=== PATIENT | female | born 1960 | race Caucasian/White ===

== ENCOUNTER 2019-11-08 01:18 | Day surgery (SDC) | payer BC, MEDICARE, SELFPAY ==
[2019-11-06 14:08] VITALS: BMI 30.2
--- NOTE | 2019-11-08 08:10 | PM.HPGS ---
History of Present Illness History of Present Illness Consent: Risks, benefits, and alternatives have been discussed and questions answered. Patient agrees to proceed with procedure. Chief complaint: Hx Colon Polyps Narrative: Brandy Casey is a 59 year old female here for screening colonoscopy. She has a history of polyps. She had 1 small polyp in 2009. Then in 2018 she had 30 polyps that required 3 procedures to remove them PMFSH Family History Family History Mother Family history of thyroid disease Family history of osteoporosis Depression Hypertension Family history of elevated blood lipids Family history of arthritis Family history of chronic obstructive pulmonary disease Family history of Alzheimer's disease Family history of atrial fibrillation Sibling Family history of thyroid disease Family history of hypercholesterolemia Hypertension Father Family history of hypercholesterolemia Hypertension Family history of cardiovascular disease Family history of coronary artery disease Social History Social History Smoking status: Never smoker Alcohol intake: current Meds Home Medications and Allergies Home Medications Medication Instructions Recorded Confirmed Type aspirin 81 mg tablet,delayed 81 mg PO DAILY 10/24/19 11/06/19 History release doxazosin 1 mg tablet 1 mg PO DAILY 10/24/19 11/06/19 History hydralazine 50 mg tablet 50 mg PO TID 10/24/19 11/06/19 History lansoprazole 30 mg capsule,delayed 30 mg PO BID cap 10/24/19 11/06/19 History release metoprolol succinate 50 mg 50 mg PO BID tablet 10/24/19 11/06/19 History tablet,extended release 24 hr mycophenolate sodium 360 mg 720 mg PO DAILY 10/24/19 11/06/19 History tablet,delayed release pravastatin 20 mg tablet 20 mg PO DAILY 10/24/19 11/06/19 History tacrolimus 1 mg capsule 1 mg PO Q12H 10/24/19 11/06/19 History Allergies Allergy/AdvReac Type Severity Reaction Status Date / Time amoxicillin Allergy Unknown Rash Verified 11/08/19 08:13 clavulanic acid Allergy Unknown RASH Verified 11/08/19 08:13 fentanyl Allergy Unknown very Verified 11/08/19 08:13 emotional crying levofloxacin Allergy Unknown Nausea And Verified 11/08/19 08:13 Vomiting Exam Resp: Auscultation: clear to auscultation bilaterally Cardio: Rate: regular rate Rhythm: regular rhythm GI: GI Palp: Yes Soft to palpation and No Tenderness to palpation present (GI) Assessment and Plan Assessment and plan (1) Personal history of colonic polyps: Code(s): Z86.010 - Personal history of colonic polyps Status: Acute Assessment and Plan: Colonoscopy with possible biopsy or polypectomy or cautery or injection of substances.
--- NOTE | 2019-11-08 08:40 | WPDANESEPPF ---
Anes - Initial Pre Proc Eval Procedure: Operation Date: 11/08/19 09:00 Proposed Procedures p Screening Colonoscopy - Tunde Dsouza MD Date/Time: 11/08/19 08:40 Surgeon: Tunde Dsouza MD Pre Op Diagnosis: Hx Colon Polyps Patient Data Age: 59 Gender: F Height: 5 ft 4 in Weight: 81.6 kg Allergies Allergy/AdvReac Type Severity Reaction Status Date / Time amoxicillin Allergy Unknown Rash Verified 11/08/19 08:13 clavulanic acid Allergy Unknown RASH Verified 11/08/19 08:13 fentanyl Allergy Unknown very Verified 11/08/19 08:13 emotional crying levofloxacin Allergy Unknown Nausea And Verified 11/08/19 08:13 Vomiting Home Medications Medication Instructions Recorded Confirmed Type aspirin 81 mg tablet,delayed 81 mg PO DAILY 10/24/19 11/08/19 History release doxazosin 1 mg tablet 1 mg PO DAILY 10/24/19 11/08/19 History hydralazine 50 mg tablet 50 mg PO TID 10/24/19 11/08/19 History lansoprazole 30 mg capsule,delayed 30 mg PO BID cap 10/24/19 11/08/19 History release metoprolol succinate 50 mg 50 mg PO BID tablet 10/24/19 11/08/19 History tablet,extended release 24 hr mycophenolate sodium 360 mg 720 mg PO DAILY 10/24/19 11/08/19 History tablet,delayed release pravastatin 20 mg tablet 20 mg PO DAILY 10/24/19 11/08/19 History tacrolimus 1 mg capsule 1 mg PO Q12H 10/24/19 11/08/19 History Patient hx anesthesia problems: none Family hx anesthesia problems: none [facility] Past Medical History Medical History (Updated 11/08/19 @ 08:40 by Ariel Dunn MD) HTN (hypertension) Hyperlipidemia Obesity Surgical History Surgical History Renal transplant recipient Renal transplant, status post Family History Family History Mother Family history of thyroid disease Family history of osteoporosis Depression Hypertension Family history of elevated blood lipids Family history of arthritis Family history of chronic obstructive pulmonary disease Family history of Alzheimer's disease Family history of atrial fibrillation Sibling Family history of thyroid disease Family history of hypercholesterolemia Hypertension Father Family history of hypercholesterolemia Hypertension Family history of cardiovascular disease Family history of coronary artery disease Social History Social History Smoking status: Never smoker Alcohol intake: current Anes - Eval Final PreProcedure Day of Procedure 11/08/19 08:40 Patient weight: obese Heart: regular rate and rhythm Lungs: clear to auscultation Airway: Mallampati scale class II Neurological: alert and oriented Last oral intake: >/= 8 hours ASA classification: IV Emergent: no Anesthetic plan: proceed Anesthesia type and monitoring: general GIVS and standard monitoring Informed Consent: The patient's anesthetic plan and its attendant risks and benefits were discussed with the patient/family/POA. Questions were solicited and answers provided to the satisfaction of the patient/family/POA.
[2019-11-08] MEDS: SODIUM CHLORIDE 0.9% IV 1,000 ML 999 ML IV CONT (08:46)
[2019-11-08 09:19] VITALS: BP 132/78; PULSE 67; RESP 16; O2SAT 98
[2019-11-08 09:29] VITALS: BP 134/82; PULSE 65; RESP 16; O2SAT 97
[2019-11-08 09:39] VITALS: BP 152/76; PULSE 60; RESP 16; O2SAT 97
--- NOTE | 2019-11-08 10:30 | SUR.PHASEII ---
Pt received 1500ml NS per Dr. Amador's orders. D/C fluids at 1030.
== END 2019-11-08 10:44 | disposition home or self-care (01) ==
PROVIDERS: PCP Family Medicine; Visit Provider Internal Medicine Gastroenterology
PROC: 0DJD8ZZ Inspection of Lower Intestinal Tract, Via Natural or Artificial Opening Endoscopic (ICD-10-PCS; CPT 45378; principal; 2019-11-08 09:00)
DX: Z12.11 Encounter for screening for malignant neoplasm of colon (principal); D12.0 Benign neoplasm of cecum; D12.3 Benign neoplasm of transverse colon; I10 Essential (primary) hypertension; E78.5 Hyperlipidemia, unspecified; Z79.82 Long term (current) use of aspirin; E66.9 Obesity, unspecified; Z68.30 Body mass index [BMI] 30.0-30.9, adult; Z94.0 Kidney transplant status
CPT/HCPCS: 45385; 45381; 88305; J2704; J7030

== ENCOUNTER 2019-11-25 08:08 | Outpatient (CLI) | payer BC, MEDICARE, SELFPAY | END 2019-11-25 08:09 | disposition home or self-care (01) | PROVIDERS: PCP Family Medicine | DX: R60.9 Edema, unspecified (principal); N39.0 Urinary tract infection, site not specified; Z94.0 Kidney transplant status; T86.10 Unspecified complication of kidney transplant | CPT/HCPCS: 87045; 87046; 87077; 87086; 87088; 87186; 87427 ==

== ENCOUNTER 2020-06-18 06:44 | Outpatient (CLI) | payer BC, MEDICARE, SELFPAY ==
[2020-06-18 07:47] LABS: Alanine Aminotransferase 38 U/L (4-35); Albumin Level 3.4 g/dL (3.5-5.1); Alkaline Phosphatase 115 U/L (38-126); Anion Gap 6 mmol/L (8-16); Aspartate Amino Transferase 34 U/L (14-36); Bilirubin,Total 0.3 mg/dL (0.2-1.3); Blood Urea Nitrogen 40 mg/dL (7-17); Calcium 9.7 mg/dL (8.4-10.2); Carbon Dioxide 22 mmol/L (22-30); Chloride 107 mmol/L (98-107); Estimated Glomerular Filt Rate 31; Glucose 150 mg/dL (65-105); Potassium 4.9 mmol/L (3.4-5.0); Sodium 135 mmol/L (137-145)
== END 2020-06-18 06:45 | disposition home or self-care (01) ==
LOC: ANHLAB 06:46
PROVIDERS: PCP Family Medicine
DX: T86.10 Unspecified complication of kidney transplant (principal); Z94.0 Kidney transplant status
CPT/HCPCS: 36415; 36592; 80053

== ENCOUNTER 2020-09-09 12:36 | Emergency (ER) | payer BC, MEDICARE, SELFPAY ==
[2020-09-09] VITALS (36 sets, daily range): BP systolic 92–154; BP diastolic 46–95; PULSE 70–87; RESP 12–24; TEMP 36.8; O2SAT 91–100
--- NOTE | ~2020-09-09 | XR_ITS ---
XR chest 1V portable 09/09/2020 13:59 Indication: Shortness of breath Procedure: AP portable chest Comparison: 06/06/2019 Findings: Portacatheter tip in the SVC. There is linear subsegmental atelectasis/scarring left mid missy ng zone. No focal pneumonia, pleural effusion, edema or pneumothorax. Impression: 1: Linear subsegmental atelectasis/scarring left midlung zone. Reviewed, dictated and finalized at location A. ATE DUTY NURSE Impression: 1: Linear subsegmental atelectasis/scarring left midlung zone.
--- NOTE | 2020-09-09 13:35 | ED.FEVER ---
HPI - Fever General Chief Complaint: Fever Stated Complaint: fever/transplant kidney 2 yrs ago Time Seen by Provider: 09/09/20 13:27 Source: patient, RN notes reviewed and old records reviewed Mode of arrival: ambulatory Limitations: no limitations History of Present Illness HPI Narrative: 60-year-old female presents to emergency department for fever for the past 2 days. Patient states she took her temperature around 10 AM this morning which showed it was over 101 degrees. She states she has been feeling fatigued recently. Never had this in the past before. Has taken Tylenol for her symptoms. She was tested yesterday for COVID-19, however the test results take about 4 to 5 days. No chest pain or shortness of breath. No abdominal pain. No nausea or vomiting. Related Data Home Medications Medication Instructions Recorded Confirmed aspirin 81 mg tablet,delayed 81 mg PO DAILY 10/24/19 08/31/20 release mycophenolate sodium 360 mg 720 mg PO DAILY 10/24/19 08/31/20 tablet,delayed release melatonin 10 mg capsule 10 mg PO ONCE cap 08/31/20 08/31/20 Allergies Allergy/AdvReac Type Severity Reaction Status Date / Time amoxicillin Allergy Unknown Rash Verified 08/31/20 10:44 clavulanic acid Allergy Unknown RASH Verified 08/31/20 10:44 fentanyl Allergy Unknown very Verified 08/31/20 10:44 emotional crying levofloxacin Allergy Unknown Nausea And Verified 08/31/20 10:44 Vomiting Review of Systems Review of Systems: Narrative: CONSTITUTIONAL: Denies sweats. Reports fever and chills EYES: Denies visual changes, redness, or discharge. ENT: Denies rhinorrhea, congestion, sore throat, or otalgia. CARDIOVASCULAR: Denies chest pain, palpitations, or edema. RESPIRATORY: Denies cough or dyspnea. GASTROINTESTINAL: Denies abdominal pain, nausea, vomiting, or diarrhea. GENITOURINARY: Denies dysuria or hematuria. SKIN: Denies rash or itching. MUSCULOSKELETAL: Denies back pain, joint pain, or myalgia. NEUROLOGIC: Denies headache, numbness, dizziness, or weakness. PSYCHIATRIC: Denies anxiety or depression. All systems reviewed & are unremarkable except as noted in HPI and below (ROS) [facility] Past Medical History Medical History (Updated 09/10/20 @ 00:00 by Background Daemon) HTN (hypertension) Hyperlipidemia Obesity Surgical History Surgical History Renal transplant recipient Renal transplant, status post Family History Family History Mother Family history of thyroid disease Family history of osteoporosis Depression Hypertension Family history of elevated blood lipids Family history of arthritis Family history of chronic obstructive pulmonary disease Family history of Alzheimer's disease Family history of atrial fibrillation Sibling Family history of thyroid disease Family history of hypercholesterolemia Hypertension Father Family history of hypercholesterolemia Hypertension Family history of cardiovascular disease Family history of coronary artery disease Social History Social History Smoking status: Never smoker Alcohol intake: current Exam Narrative: Exam Narrative: GENERAL: Well-appearing, well-nourished, and in no acute distress. HEAD: Normocephalic, atraumatic. EYES: PERRLA and EOMI. ENT: Nares clear, no rhinorrhea or epistaxis. Mucous membranes moist. NECK: Supple. CHEST: Clear to auscultation. No respiratory distress. HEART: Regular rate and rhythm. No murmur heard. Normal peripheral pulses. ABDOMEN: Soft, nontender, nondistended, normal active bowel sounds. EXTREMITIES: Normal range of motion. No edema. SKIN: Warm, dry, no rash. NEURO: No focal deficits. Alert and oriented x3. PSYCH: Normal mood and affect. Course Reevaluation(s) Reevaluation #1: 1645 -reevaluated patient, no new complaints. Strongl
[2020-09-09 14:15] LABS: Basophils Percent Auto 0.1 % (0.2-1.2); Hematocrit 33.8 % (37.0-47.0); Hemoglobin 11.3 g/dL (12.0-15.0); Immature Granulocyte Absolute 0.04 K/mm3 (0.00-0.031); Immature Granulocyte Percent A 0.5 % (0-0.5); Lymphocytes Absolute Auto 0.37 K/mm3 (0.9-3.2); Lymphocytes Percent Auto 4.9 % (18.3-44.2); Mean Corpuscular HGB Conc 33.4 g/dl (32-36); Mean Corpuscular Hemoglobin 30.3 pg (26-34); Mean Corpuscular Volume 90.6 fl (80-100); Mean Platelet Volume 11.9 fl (7.4-10.4); Monocytes Absolute Auto 0.5 K/mm3 (0.1-0.6); Monocytes Percent Auto 6.7 % (2.6-8.5); Neutrophils Absolute Auto 6.7 K/mm3 (1.3-6.7); Neutrophils Percent Auto 87.8 % (45.5-73.1); Platelet Count Result 82 k/mm3 (150-375); Red Blood Count 3.73 M/mm3 (4.2-5.4); Red Cell Distribution Width 13.5 % (11.5-14.5); White Blood Count 7.6 K/mm3 (4.5-10.0)
[2020-09-09 14:27] LABS: Anion Gap 8 mmol/L (8-16); Blood Urea Nitrogen 35 mg/dL (7-17); Calcium 9.4 mg/dL (8.4-10.2); Carbon Dioxide 23 mmol/L (22-30); Chloride 101 mmol/L (98-107); Estimated CRCL calculation 27 ml/min; Estimated Glomerular Filt Rate 24; Glucose 235 mg/dL (65-105); Lactate Dehydrogenase 350 U/L (313-618); Potassium 4.3 mmol/L (3.4-5.0); Sodium 132 mmol/L (137-145)
[2020-09-09 14:44] LABS: CRP 16.4 mg/dL (<1.0)
[2020-09-09 15:16] LABS: Add Urine Microscopic? YES; Amorphous Sediment Urine Few; Appearance Urine Cloudy (Clear); Bacteria Urine Trace /hpf; Bilirubin Urine Negative (Negative); Blood Urine Negative (Negative); Color Urine Amber (Yellow); Glucose Urine UA Negative (Negative); Ketones Urine Negative (Negative); Leukocyte Esterase Ur Trace LEU/UL (Negative); Mucus Urine Rare /lpf; Nitrate Urine Negative (Negative); Protein Urine 2+ mg/dL (Negative); Specific Grav Ur 1.018 (1.001-1.035); Squamous Epithelial Cell Urine Moderate /hpf (Few); Urobilinogen Urine Negative mg/dL (<2.0); WBC Urine 51-75 /hpf
[2020-09-09] MEDS: HEPARIN SOD FLUSH 500 UNITS/5 ML SYRINGE (17:38)
[2020-09-10 17:19] LABS: SARS-CoV-2 RNA PCR Negative
[2020-09-11 14:13] LABS: Procalcitonin 41.49 ng/mL (<0.10)
== END 2020-09-09 17:45 | disposition home or self-care (01) ==
PROVIDERS: Emergency Provider Emergency Medicine; PCP Family Medicine
DX: Z20.828 Contact with and (suspected) exposure to other viral communicable diseases (principal); B34.9 Viral infection, unspecified; I10 Essential (primary) hypertension; E78.5 Hyperlipidemia, unspecified
CPT/HCPCS: 36415; 71045; 80048; 81001; 82728; 83615; 84145; 85025; 86140; 87077; 87086; 87088; 87186; 87635; 99283; C9803; U0003

== ENCOUNTER → 2020-09-19 08:44 | Outpatient (CLI) | payer BC, SELFPAY ==
--- NOTE | ~2020-09-19 | US_ITS ---
US right upper quadrant INDICATION: Abnormal labs. Fatty liver. PROCEDURE: Realtime right upper abdominal ultrasound. COMPARISON: No prior studies for comparison. FINDINGS: The pancreas is normal without focal mass or pancreatic ductal dilation. Liver echotexture is increased, consistent with fatty infiltration. There is normal directional flow in the portal ve in. Gallbladder is surgically absent. Common bile duct measures 1.4 cm mm. IMPRESSION: 1: Hepatic steatosis. 2: Status post cholecystectomy with dilation of the common bile duct measuring 1.4 cm. Reviewed, dictated and finalized at location A. MUTUEL CLERK
== END ==
PROVIDERS: PCP Family Medicine; Visit Provider Family Medicine
DX: E66.9 Obesity, unspecified (principal); R74.8 Abnormal levels of other serum enzymes; K76.0 Fatty (change of) liver, not elsewhere classified; Z90.49 Acquired absence of other specified parts of digestive tract
CPT/HCPCS: 76705

== ENCOUNTER 2020-09-23 10:32 | Outpatient (CLI) | payer BC, MEDICARE, SELFPAY ==
--- NOTE | ~2020-09-23 | MM_ITS ---
EXAMINATION: MM screening stacey BI w [facility] HISTORY: Screening TECHNIQUE: Craniocaudal and mediolateral oblique 3-D tomosynthesis images were obtained and synthetic 2-D images were generated. CAD analysis was submitted and interpreted. COMPARISON: No prior mammogram is available for comparison at this institution. BREAST PARENCHYMAL COMPOSITION: There are scattered areas of fibroglandular density. FINDINGS: There is no evidence of suspicious mass, calcification, or architectural distortion to sugg est malignancy in either breast. There has been no suspicious interval change. IMPRESSION: 1. No mammographic evidence of malignancy. 2. Recommend routine screening mammography in one year. BI-RADS Category 1: Negative Reviewed, dictated and finalized at location A. ALT SPREADER
== END 2020-09-23 10:33 | disposition home or self-care (01) ==
LOC: ANHIMG 10:35
PROVIDERS: PCP Family Medicine; Visit Provider Family Medicine
DX: Z12.31 Encounter for screening mammogram for malignant neoplasm of breast (principal)
CPT/HCPCS: 77063; 77067

== ENCOUNTER 2020-12-28 06:45 | Outpatient (CLI) | payer BC, MEDICARE, SELFPAY ==
[2020-12-30 23:50] LABS: Tacrolimus Prograf 5.5 mcg/L
== END 2020-12-28 06:46 | disposition home or self-care (01) ==
PROVIDERS: PCP Family Medicine
DX: Z79.899 Other long term (current) drug therapy (principal)
CPT/HCPCS: 36415; 80197

== ENCOUNTER 2020-12-28 06:54 | Outpatient (CLI) | payer BC, MEDICARE, SELFPAY ==
[2020-12-28 07:54] LABS: Cholesterol 144 mg/dL (0-200); HDL Direct 44 mg/dL; Triglycerides 222 mg/dL (<150)
[2020-12-28 07:56] LABS: Hemoglobin A1C 6.3 % (<5.7)
[2020-12-28 08:04] LABS: LDL Cholesterol Direct 60 mg/dL
[2020-12-28 08:14] LABS: Creatinine Urine 91.6 mg/dL
[2020-12-28 08:52] LABS: MALB Creatinine Ratio 432.2 mg/g (0-30); Microalbumin Urine Random 395.9 mg/L (0-16.7)
== END 2020-12-28 06:55 | disposition home or self-care (01) ==
PROVIDERS: PCP Family Medicine; Visit Provider Internal Medicine
DX: N95.1 Menopausal and female climacteric states (principal); E20.9 Hypoparathyroidism, unspecified; E11.65 Type 2 diabetes mellitus with hyperglycemia; K76.0 Fatty (change of) liver, not elsewhere classified; Z94.0 Kidney transplant status; K21.9 Gastro-esophageal reflux disease without esophagitis; E78.5 Hyperlipidemia, unspecified; G47.00 Insomnia, unspecified; M85.80 Other specified disorders of bone density and structure, unspecified site
CPT/HCPCS: 36415; 80061; 82043; 83036; 84443

== ENCOUNTER → 2021-05-27 05:52 | Outpatient (CLI) | payer MEDICARE, BC, SELFPAY ==
[2021-05-27 19:18] LABS: SARS-CoV-2 RNA PCR Negative
== END ==
PROVIDERS: PCP Family Medicine; Visit Provider Physician Assistant
DX: J02.9 Acute pharyngitis, unspecified (principal); Z20.822 Contact with and (suspected) exposure to COVID-19
CPT/HCPCS: C9803; U0003; U0005

== ENCOUNTER 2021-11-09 08:26 | Outpatient (CLI) | payer MEDICARE, BC, SELFPAY ==
--- NOTE | ~2021-11-09 | MM_ITS ---
EXAMINATION: MM screening stacey BI w [facility] HISTORY: Screening TECHNIQUE: Craniocaudal and mediolateral oblique 3-D tomosynthesis images were obtained and synthetic 2-D images were generated. CAD analysis was submitted and interpreted. COMPARISON: 09/23/2020 BREAST PARENCHYMAL COMPOSITION: Breast composed of scattered areas of fibroglandular density. FINDINGS: There is no evidence of suspicious mass, calcification, or architectural distortion to sugg est malignancy in either breast. There has been no suspicious interval change. IMPRESSION: 1. No mammographic evidence of malignancy. 2. Recommend routine screening mammography in one year. BI-RADS Category 1: Negative Reviewed, dictated and finalized at location A. D INSTALLATION WORKER
== END 2021-11-09 08:27 | disposition home or self-care (01) ==
DX: Z12.31 Encounter for screening mammogram for malignant neoplasm of breast (principal)
CPT/HCPCS: 77063; 77067

== ENCOUNTER 2021-11-17 01:19 | Day surgery (SDC) | payer MEDICARE, BC, SELFPAY ==
[2021-11-03 13:41] VITALS: BMI 30.6
--- NOTE | 2021-11-16 17:37 | PM.HPGS ---
History of Present Illness History of Present Illness Consent: Risks, benefits, and alternatives have been discussed and questions answered. Patient agrees to proceed with procedure. Chief complaint: hx of colon polyps Narrative: Brandy Casey is a 61 year old female weeks here for colon cancer screening and surveillance. She had several polyps removed 2 years ago including 1 broad-based polyp piecemeal resection in the hepatic flexure which may not have been completely removed. Review of Systems Review of Systems: All systems reviewed & are unremarkable except as noted in HPI and below PMFSH Past Medical History Medical History Anemia Arthritis Cancer GERD (gastroesophageal reflux disease) Hemoglobin A1c less than 7.0% A1C = 6.8 on 08/21/2020 HTN (hypertension) Hyperlipidemia Kidney disease Obesity Surgical History Surgical History Renal transplant recipient Renal transplant, status post Family History Family History Mother Family history of thyroid disease Family history of osteoporosis Depression Hypertension Family history of elevated blood lipids Family history of arthritis Family history of chronic obstructive pulmonary disease Family history of Alzheimer's disease Family history of atrial fibrillation Sibling Family history of thyroid disease Family history of hypercholesterolemia Hypertension Father Family history of hypercholesterolemia Hypertension Family history of cardiovascular disease Family history of coronary artery disease Social History Social History Alcohol intake: current Alcohol use details: Occasional Substance use: never Substance use type: does not use Living arrangements: alone Gender identity (if verbalized by the patient): Female Spiritual care concerns: No Meds Home Medications and Allergies Home Medications Medication Instructions Recorded Confirmed Type aspirin 81 mg tablet,delayed 81 mg PO DAILY 10/24/19 11/03/21 History release mycophenolate sodium 360 mg 720 mg PO DAILY 10/24/19 11/03/21 History tablet,delayed release melatonin 10 mg capsule 10 mg PO ONCE cap 08/31/20 11/03/21 History cholecalciferol (vitamin D3) 50 50 mcg PO DAILY 11/03/20 11/03/21 History mcg (2,000 unit) capsule diphenhydramine HCl 25 mg capsule 25 mg PO Q6H PRN 11/03/20 11/03/21 History sodium bicarbonate 325 mg tablet 325 mg PO BID PRN 11/03/20 11/03/21 History tramadol 50 mg tablet 50 mg PO Q6H PRN #30 tablet 12/02/20 11/03/21 Rx hydralazine 50 mg tablet See Rx Instructions .ROUTE 03/04/21 11/03/21 Rx .COMPLEX #180 tablet metoprolol succinate 50 mg See Rx Instructions .ROUTE 04/29/21 11/03/21 Rx tablet,extended release 24 hr .COMPLEX #180 tablet rosuvastatin 20 mg tablet 20 mg PO DAILY tablet 06/07/21 11/03/21 History tacrolimus 0.5 mg capsule, 0.5 mg PO DAILY cap 06/07/21 11/03/21 History immediate-release doxazosin 1 mg tablet See Rx Instructions .ROUTE 06/10/21 11/03/21 Rx .COMPLEX #90 tablet lansoprazole 30 mg capsule,delayed See Rx Instructions .ROUTE 06/10/21 11/03/21 Rx release .COMPLEX #180 cap nifedipine 30 mg BYMOUTH DAILY 11/03/21 11/03/21 History Allergies Allergy/AdvReac Type Severity Reaction Status Date / Time amoxicillin Allergy Unknown Rash Verified 11/17/21 06:27 clavulanic acid Allergy Unknown RASH Verified 11/17/21 06:27 fentanyl AdvReac Unknown very Verified 11/17/21 06:27 emotional crying levofloxacin AdvReac Unknown Nausea And Verified 11/17/21 06:27 Vomiting Exam Const: General: alert Orientation/consciousness: patient oriented x3 Resp: Auscultation: clear to auscultation bilaterally Cardio: Rhythm: regular rhythm GI: GI Palp: Yes Soft to palpation and No Tend
[2021-11-17] MEDS: LACTATED RINGERS 1,000 ML 150 ML IV CONT (06:47)
[2021-11-17 06:48] VITALS: BP 131/78; PULSE 82; RESP 19; TEMP 37.1; O2SAT 99
--- NOTE | 2021-11-17 07:16 | WPDANESEPPF ---
Anes - Initial Pre Proc Eval Procedure: Operation Date: 11/17/21 07:30 Proposed Procedures p Screening Colonoscopy - Tunde Dsouza MD Date/Time: 11/17/21 07:16 Surgeon: Tunde Dsouza MD Pre Op Diagnosis: hx of colon polyps Patient Data Age: 61 Gender: F Height: 1.63 m Weight: 84.5 kg Last Vital Signs Temp 98.7 F 11/17/21 06:48 Pulse 82 11/17/21 06:48 Resp 19 11/17/21 06:48 BP 131/78 11/17/21 06:48 Pulse Ox 99 11/17/21 06:48 Allergies Allergy/AdvReac Type Severity Reaction Status Date / Time amoxicillin Allergy Unknown Rash Verified 11/17/21 06:27 clavulanic acid Allergy Unknown RASH Verified 11/17/21 06:27 fentanyl AdvReac Unknown very Verified 11/17/21 06:27 emotional crying levofloxacin AdvReac Unknown Nausea And Verified 11/17/21 06:27 Vomiting Home Medications Medication Instructions Recorded Confirmed Type aspirin 81 mg tablet,delayed 81 mg PO DAILY 10/24/19 11/03/21 History release mycophenolate sodium 360 mg 720 mg PO DAILY 10/24/19 11/03/21 History tablet,delayed release melatonin 10 mg capsule 10 mg PO ONCE cap 08/31/20 11/03/21 History cholecalciferol (vitamin D3) 50 50 mcg PO DAILY 11/03/20 11/03/21 History mcg (2,000 unit) capsule diphenhydramine HCl 25 mg capsule 25 mg PO Q6H PRN 11/03/20 11/03/21 History sodium bicarbonate 325 mg tablet 325 mg PO BID PRN 11/03/20 11/03/21 History tramadol 50 mg tablet 50 mg PO Q6H PRN #30 tablet 12/02/20 11/03/21 Rx hydralazine 50 mg tablet See Rx Instructions .ROUTE 03/04/21 11/03/21 Rx .COMPLEX #180 tablet metoprolol succinate 50 mg See Rx Instructions .ROUTE 04/29/21 11/03/21 Rx tablet,extended release 24 hr .COMPLEX #180 tablet rosuvastatin 20 mg tablet 20 mg PO DAILY tablet 06/07/21 11/03/21 History tacrolimus 0.5 mg capsule, 0.5 mg PO DAILY cap 06/07/21 11/03/21 History immediate-release doxazosin 1 mg tablet See Rx Instructions .ROUTE 06/10/21 11/03/21 Rx .COMPLEX #90 tablet lansoprazole 30 mg capsule,delayed See Rx Instructions .ROUTE 06/10/21 11/03/21 Rx release .COMPLEX #180 cap nifedipine 30 mg BYMOUTH DAILY 11/03/21 11/03/21 History Patient hx anesthesia problems: none Family hx anesthesia problems: none Results Review: All pre-operative results and documents have been reviewed as part of the pre-operative evaluation. [facility] [place] Past Medical History Medical History Anemia Arthritis Cancer GERD (gastroesophageal reflux disease) Hemoglobin A1c less than 7.0% A1C = 6.8 on 08/21/2020 HTN (hypertension) Hyperlipidemia Kidney disease Obesity Surgical History Surgical History Renal transplant recipient Renal transplant, status post Family History Family History Mother Family history of thyroid disease Family history of osteoporosis Depression Hypertension Family history of elevated blood lipids Family history of arthritis Family history of chronic obstructive pulmonary disease Family history of Alzheimer's disease Family history of atrial fibrillation Sibling Family history of thyroid disease Family history of hypercholesterolemia Hypertension Father Family history of hypercholesterolemia Hypertension Family history of cardiovascular disease Family history of coronary artery disease Social History Social History Alcohol intake: current Alcohol use details: Occasional Substance use: never Substance use type: does not use Living arrangements: alone Gender identity (if verbalized by the patient): Female Spiritual care concerns: No Anes - Eval Final PreProcedure Day of Procedure 11/17/21 07:16 Patient weight: obese Heart: regular rate and rhythm Lungs: clear to auscultation Airway: Mallampati scale class II Ne
[2021-11-17 07:58] VITALS: BP 107/64; PULSE 69; RESP 18; O2SAT 98
[2021-11-17 08:08] VITALS: BP 107/66; PULSE 65; RESP 16; O2SAT 97
[2021-11-17] MEDS: HEPARIN SODIUM LOCK FLUSH 500 UNITS/5 ML VIAL IV PUSH (08:15)
[2021-11-17] MEDS: CENTRAL LINE FLUSH 10 ML IV PUSH (08:15)
[2021-11-17 08:18] VITALS: BP 122/75; PULSE 68; RESP 19; O2SAT 98
== END 2021-11-17 08:31 | disposition home or self-care (01) ==
PROVIDERS: PCP Family Medicine; Visit Provider Internal Medicine Gastroenterology
PROC: 0DJD8ZZ Inspection of Lower Intestinal Tract, Via Natural or Artificial Opening Endoscopic (ICD-10-PCS; CPT 45378; principal; 2021-11-17 07:30)
DX: Z12.11 Encounter for screening for malignant neoplasm of colon (principal); D12.0 Benign neoplasm of cecum; D12.5 Benign neoplasm of sigmoid colon; K57.30 Diverticulosis of large intestine without perforation or abscess without bleeding; K21.9 Gastro-esophageal reflux disease without esophagitis; I10 Essential (primary) hypertension; E78.5 Hyperlipidemia, unspecified; M19.90 Unspecified osteoarthritis, unspecified site; Z79.82 Long term (current) use of aspirin
CPT/HCPCS: 45385; 88305; J1642; J2704; J7120

== ENCOUNTER 2022-07-20 17:03 | Emergency (ER) | payer MEDICARE, BC, SELFPAY ==
[2022-07-20] VITALS (7 sets, daily range): BP systolic 119–123; BP diastolic 66–80; PULSE 110–138; RESP 20–23; TEMP 36.3; O2SAT 94–98
--- NOTE | 2022-07-20 17:50 | ECG_ITS ---
Measurements Intervals [place] Rate: 125 P: 31 OR: 148 QRS: 10 QRSD: 97 T: 11 QT: 302 QTc: 436 Interpretive Statements SINUS TACHYCARDIA NONSPECIFIC ST AND T-WAVE ABNORMALITY BASELINE ARTIFACT IS PRESENT ABNORMAL RHYTHM ECG NO PREVIOUS ECG AVAILABLE FOR COMPARISON Electronically Signed On 07-21-2022 13:52:22 CDT by Jesse Mcdonald M.D.
--- NOTE | 2022-07-20 18:05 | PC.NURSE ---
Notified by Radiology that patient refused Xray stating that she had already had a chest xray at [facility] today.
[2022-07-20 18:29] LABS: Hematocrit 24.1 % (37.0-47.0); Hemoglobin 7.5 g/dL (12.0-15.0); Mean Corpuscular HGB Conc 31.1 g/dl (32-36); Mean Corpuscular Hemoglobin 29.4 pg (26-34); Mean Corpuscular Volume 94.5 fl (80-100); Mean Platelet Volume 9.5 fl (7.4-10.4); Platelet Count Result 167 k/mm3 (150-375); Red Blood Count 2.55 M/mm3 (4.2-5.4); Red Cell Distribution Width 17.1 % (11.5-14.5); White Blood Count 3.1 K/mm3 (4.5-10.0)
[2022-07-20 18:41] LABS: Alanine Aminotransferase 27 U/L (6-35); Albumin Level 3.3 g/dL (3.5-5.1); Alkaline Phosphatase 144 U/L (38-126); Anion Gap 13 mmol/L (8-16); Aspartate Amino Transferase 47 U/L (14-36); Bilirubin,Total 0.3 mg/dL (0.2-1.3); Blood Urea Nitrogen 13 mg/dL (7-17); Calcium 7.6 mg/dL (8.4-10.2); Carbon Dioxide 21 mmol/L (22-30); Chloride 98 mmol/L (98-107); Estimated CRCL calculation 19 ml/min; Estimated Glomerular Filt Rate 16; Glucose 135 mg/dL (65-110); Potassium 4.1 mmol/L (3.4-5.0); Sodium 132 mmol/L (137-145)
[2022-07-20] MEDS: ALBUTEROL SULFATE NEB 2.5 MG/3 ML INH 5 MG INHALATION (18:52)
[2022-07-20 18:54] LABS: Anisocytosis 2+ (NORMAL); Band Neutrophils Percent 5 % (0-6); Giant Platelets Present; Lymphocytes Absolute Manual 0.58 K/mm3 (1.1-4.5); Monocytes Absolute Manual 0.46 K/mm3 (0.1-0.90); Monocytes Percent Manual 15 % (3-9); Neutrophils Absolute Manual 2.04 K/mm3 (1.7-7.2); Neutrophils Percent Manual 61 % (46-73); Platelet Estimate Adequate (Adequate); Total Cells Counted 100
[2022-07-20 18:55] LABS: Hypochromasia 1+ (NORMAL)
[2022-07-20 19:05] LABS: Schistocytes None Seen (NORMAL)
--- NOTE | 2022-07-20 19:32 | ED.SOB ---
HPI - SOB/Dyspnea General Chief Complaint: Shortness of Breath/Dyspnea Stated Complaint: shortness of breath - RSV dx last week Time Seen by Provider: 07/20/22 18:24 History of Present Illness HPI Narrative: 62-year-old female presenting to the emergency department for evaluation of worsening shortness of breath. Patient was at [facility] yesterday and was diagnosed with RSV. Patient states when she was at home she had a pulse ox dipped into the 80s so she presented to the emergency department for evaluation. Patient had a renal transplant and 2019 in [place] and does follow-up with [facility] patient has had worsening kidney function and does follow-up with Dr. Hope and Dr. Brito and Dr Finley. Patient has had worsening creatinine of greater than 3 and has been on dialysis. Related Data Home Medications Medication Instructions Recorded Confirmed aspirin 81 mg tablet,delayed 81 mg PO DAILY 10/24/19 07/22/22 release melatonin 10 mg capsule 10 mg PO ONCE 08/31/20 07/22/22 cholecalciferol (vitamin D3) 50 50 mcg PO DAILY 11/03/20 07/22/22 mcg (2,000 unit) capsule diphenhydramine HCl 25 mg capsule 25 mg PO Q6H PRN Allergic Symptoms 11/03/20 07/22/22 (Benadryl) rosuvastatin 20 mg tablet 20 mg PO DAILY 06/07/21 07/22/22 nifedipine 30 mg BYMOUTH BID 11/03/21 07/22/22 albuterol sulfate 90 mcg/actuation 90 mcg inhalation DIRECTED 07/22/22 07/22/22 aerosol inhaler allopurinol 100 mg tablet 100 mg DIRECTED 07/22/22 07/22/22 benzonatate 200 mg capsule 200 mg PO DIRECTED 07/22/22 07/22/22 calcitriol 0.25 mcg capsule 0.25 mcg DIRECTED 07/22/22 07/22/22 cinacalcet 30 mg tablet 30 mg PO DIRECTED 07/22/22 07/22/22 sitagliptin phosphate 25 mg tablet 25 mg DAILY 07/22/22 07/22/22 (Januvia) Allergies Allergy/AdvReac Type Severity Reaction Status Date / Time amoxicillin Allergy Unknown Rash Verified 11/17/21 06:27 clavulanic acid Allergy Unknown RASH Verified 11/17/21 06:27 fentanyl AdvReac Unknown very Verified 11/17/21 06:27 emotional crying levofloxacin AdvReac Unknown Nausea And Verified 11/17/21 06:27 Vomiting Review of Systems Review of Systems: CONSTITUTIONAL: Denies fever, chills, or sweats. EYES: Denies visual changes, redness, or discharge. ENT: Denies rhinorrhea, congestion, sore throat, or otalgia. CARDIOVASCULAR: Denies chest pain, palpitations, or edema. RESPIRATORY: Shortness of breath GASTROINTESTINAL: Denies abdominal pain, nausea, vomiting, or diarrhea. GENITOURINARY: Denies dysuria or hematuria. SKIN: Denies rash or itching. MUSCULOSKELETAL: Denies back pain, joint pain, or myalgia. NEUROLOGIC: Denies headache, numbness, or weakness. PSYCHIATRIC: Denies anxiety or depression. [facility] Past Medical History Medical History Anemia Arthritis Cancer GERD (gastroesophageal reflux disease) Hemoglobin A1c less than 7.0% A1C = 6.8 on 08/21/2020 HTN (hypertension) Hyperlipidemia Kidney disease Obesity Surgical History Surgical History Renal transplant recipient Renal transplant, status post Family History Family History Mother Family history of thyroid disease Family history of osteoporosis Depression Hypertension Family history of elevated blood lipids Family history of arthritis Family history of chronic obstructive pulmonary disease Family history of Alzheimer's disease Family history of atrial fibrillation Sibling Family history of thyroid disease Family history of hypercholesterolemia Hypertension Father Family history of hypercholesterolemia Hypertension Family history of cardiovascular disease Family history of coronary artery disease Social History Social History Alcohol intake: current Alcohol use details: Occasional Substance use:
[2022-07-20] MEDS: METOPROLOL TARTRATE INJ 5 MG/5 ML VIAL IV PUSH (20:01)
[2022-07-20] MEDS: HEPARIN SODIUM LOCK FLUSH 500 UNITS/5 ML VIAL (21:48)
== END 2022-07-20 21:25 | disposition home or self-care (01) ==
PROVIDERS: Emergency Medicine; Emergency Provider Emergency Medicine
DX: J22 Unspecified acute lower respiratory infection (principal); B97.4 Respiratory syncytial virus as the cause of diseases classified elsewhere; I10 Essential (primary) hypertension; D64.9 Anemia, unspecified; E78.5 Hyperlipidemia, unspecified; N28.9 Disorder of kidney and ureter, unspecified; K21.9 Gastro-esophageal reflux disease without esophagitis; M19.90 Unspecified osteoarthritis, unspecified site; E66.9 Obesity, unspecified; Z68.31 Body mass index [BMI] 31.0-31.9, adult; Z94.0 Kidney transplant status; Z79.84 Long term (current) use of oral hypoglycemic drugs; Z79.82 Long term (current) use of aspirin; R00.0 Tachycardia, unspecified; R94.31 Abnormal electrocardiogram [ECG] [EKG]
CPT/HCPCS: 36415; 80053; 85025; 93005; 94640; 96374; 99284; J1642

== ENCOUNTER 2022-07-22 14:21 | Emergency (ER) | payer MEDICARE, BC, SELFPAY ==
--- NOTE | 2022-07-22 14:22 | ED.EAR ---
HPI - Ear Problem General Chief complaint: Ear Stated complaint: right ear ache Time Seen by Provider: 07/22/22 14:43 Source: patient and RN notes reviewed Mode of arrival: ambulatory Limitations: no limitations History of Present Illness HPI Narrative: 62-year-old female presents with concern for right ear pain. Reports she was diagnosed with RSV on Monday, has been taking cold and flu medicines intermittently. Reports some paresthesia resolving, however she now has right ear pain and watery drainage. MD Complaint: ear pain Related Data Home Medications Medication Instructions Recorded Confirmed aspirin 81 mg tablet,delayed 81 mg PO DAILY 10/24/19 07/22/22 release melatonin 10 mg capsule 10 mg PO ONCE 08/31/20 07/22/22 cholecalciferol (vitamin D3) 50 50 mcg PO DAILY 11/03/20 07/22/22 mcg (2,000 unit) capsule diphenhydramine HCl 25 mg capsule 25 mg PO Q6H PRN Allergic Symptoms 11/03/20 07/22/22 (Benadryl) rosuvastatin 20 mg tablet 20 mg PO DAILY 06/07/21 07/22/22 nifedipine 30 mg BYMOUTH BID 11/03/21 07/22/22 albuterol sulfate 90 mcg/actuation 90 mcg inhalation DIRECTED 07/22/22 07/22/22 aerosol inhaler allopurinol 100 mg tablet 100 mg DIRECTED 07/22/22 07/22/22 benzonatate 200 mg capsule 200 mg PO DIRECTED 07/22/22 07/22/22 calcitriol 0.25 mcg capsule 0.25 mcg DIRECTED 07/22/22 07/22/22 cinacalcet 30 mg tablet 30 mg PO DIRECTED 07/22/22 07/22/22 sitagliptin 25 mg tablet (Januvia) 25 mg DAILY 07/22/22 07/22/22 Allergies Allergy/AdvReac Type Severity Reaction Status Date / Time amoxicillin Allergy Unknown Rash Verified 11/17/21 06:27 clavulanic acid Allergy Unknown RASH Verified 11/17/21 06:27 fentanyl AdvReac Unknown very Verified 11/17/21 06:27 emotional crying levofloxacin AdvReac Unknown Nausea And Verified 11/17/21 06:27 Vomiting Review of Systems Review of Systems: CONSTITUTIONAL: Denies fever. EYES: Denies visual changes, redness, or discharge. ENT: Reports rhinorrhea, congestion. Sinus pain, and sore throat. Reports right ear pain CARDIOVASCULAR: Denies chest pain, palpitations, or edema. RESPIRATORY: Reports cough. Denies dyspnea. GASTROINTESTINAL: Denies abdominal pain, nausea, vomiting, diarrhea SKIN: Denies rash or itching. MUSCULOSKELETAL: Denies myalgia. NEUROLOGIC: Denies headache. All systems reviewed & are unremarkable except as noted in HPI and below PMFSH Past Medical History Medical History Anemia Arthritis Cancer GERD (gastroesophageal reflux disease) Hemoglobin A1c less than 7.0% A1C = 6.8 on 08/21/2020 HTN (hypertension) Hyperlipidemia Kidney disease Obesity Surgical History Surgical History Renal transplant recipient Renal transplant, status post Family History Family History Mother Family history of thyroid disease Family history of osteoporosis Depression Hypertension Family history of elevated blood lipids Family history of arthritis Family history of chronic obstructive pulmonary disease Family history of Alzheimer's disease Family history of atrial fibrillation Sibling Family history of thyroid disease Family history of hypercholesterolemia Hypertension Father Family history of hypercholesterolemia Hypertension Family history of cardiovascular disease Family history of coronary artery disease Social History Social History Alcohol intake: current Alcohol use details: Occasional Substance use: never Substance use type: does not use Gender identity (if verbalized by the patient): Female Spiritual care concerns: No Comments At time of signature, agree with nursing past medical, surgical, social and family history. There is no relevant family history pertinent to the presenting comp
[2022-07-22 14:30] VITALS: BP 121/81; PULSE 120; RESP 20; TEMP 36.6; O2SAT 100
== END 2022-07-22 14:59 | disposition home or self-care (01) ==
PROVIDERS: Emergency Provider Nurse Practitioner
DX: H66.91 Otitis media, unspecified, right ear (principal); K21.9 Gastro-esophageal reflux disease without esophagitis; I10 Essential (primary) hypertension; E78.5 Hyperlipidemia, unspecified; Z94.0 Kidney transplant status
CPT/HCPCS: 99213; G0463

== ENCOUNTER 2022-08-09 10:33 | Inpatient (IN) | payer MEDICARE, BC, SELFPAY ==
[2022-08-09] VITALS (28 sets, daily range): BP systolic 110–147; BP diastolic 71–114; PULSE 88–121; RESP 13–32; TEMP 36.7–37.2; O2SAT 97–100; BMI 31.9
--- NOTE | ~2022-08-09 | CT_ITS ---
EXAMINATION: CT abdomen pelvis wo con DATE: 08/09/2022 19:35 INDICATION: Left lower quadrant pain at site of prior renal transplant TECHNIQUE: Computed tomography (CT) of the abdomen and pelvis was performed without intravenous contr ast. The dose-length product (DLP) was 697.99 mGy-cm. Automated exposure control and iterative recons truction technique were employed. COMPARISON: None FINDINGS: Minimal dependent atelectasis is present in the lung bases. The heart size is normal. Punct ate calcifications in an otherwise normal spleen likely represent healed granulomatous disease. The g allbladder is surgically absent. The liver, pancreas, and adrenal glands are normal. The right kidney is absent. There are innumerable cysts of the left kidney, some of which measures soft tissue attenu ation. There is a transplant kidney in the left pelvis which demonstrates perinephric fat stranding. No pathologically enlarged abdominal or pelvic lymph nodes are identified. There is no free intraperi toneal gas or evidence of bowel obstruction. There is lumbar levoscoliosis with posterior spinal inst rumentation. IMPRESSION: 1. Perinephric stranding surrounding a left pelvic transplant kidney which could reflect pyelonephrit is. Reviewed, dictated and finalized at location F. TECH IMPRESSION: 1. Perinephric stranding surrounding a left pelvic transplant kidney which coul d reflect pyelonephritis.
--- NOTE | ~2022-08-09 | XR_ITS ---
EXAMINATION: XR chest 1V portable DATE: 08/09/2022 13:22 INDICATION: Fever. TECHNIQUE: A single frontal view of the chest was obtained. COMPARISON: Chest single view 09/09/2020 FINDINGS: There is mild atelectasis bilaterally. No pleural effusion or pneumothorax. The heart size is normal. There is a right internal jugular central venous catheter with tip at superior cavoatrial junction. There is a left internal jugular port with tip in right atrium. A broken spinal fixation ro d is noted. IMPRESSION: 1. Mild atelectasis in the lungs bilaterally. Reviewed, dictated and finalized at location A. CULTURIST
--- NOTE | ~2022-08-09 | XR_ITS ---
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 RESULT: Lines, tubes, and devices: Right IJ dialysis catheter terminating at the cavoatrial junction. Left c hest implanted port terminating in the right atrium. Partially visualized fusion hardware. Lungs and pleura: Minimal scattered linear opacities likely representing scar or atelectasis. Cardiomediastinal silhouette: Stable. Other: No acute osseous or upper abdominal finding. IMPRESSION: No acute cardiopulmonary process. Reviewed, dictated and finalized at location K. XML DEVELOPER
--- NOTE | 2022-08-09 11:35 | ECG_ITS ---
Measurements Intervals [place] Rate: 110 P: 29 TX: 143 QRS: 8 QRSD: 90 T: 9 QT: 325 QTc: 440 Interpretive Statements SINUS TACHYCARDIA POOR R WAVE PROGRESSION, ANTERIOR LEADS MINIMAL Q WAVES- INFERIOR LEADS BASELINE ARTIFACT- I, III, V4-V6 ABNORMAL ECG COMPARED TO ECG 07/20/2022 18:33:15 NO SIGNIFICANT CHANGES Electronically Signed On 08-09-2022 13:28:05 [employer] by Kyle Parrish D.O.
[2022-08-09 14:09] LABS: Appearance Urine Cloudy (Clear); Bilirubin Urine 1+ (Negative); Blood Urine 2+ (Negative); Color Urine Yellow (Yellow); Glucose Urine UA Negative (Negative); Ketones Urine Trace mg/dL (Negative); Leukocyte Esterase Ur Trace LEU/UL (Negative); Nitrate Urine Negative (Negative); Protein Urine 3+ mg/dL (Negative); Urobilinogen Urine 0.2 mg/dL (<2.0)
[2022-08-09 14:26] LABS: Bacteria Urine 3+ /hpf; Mucus Urine Rare /lpf; Squamous Epithelial Cell Urine Many /hpf (Few); WBC Urine >75 /hpf
[2022-08-09 14:27] LABS: Add Urine Microscopic? YES
[2022-08-09 14:40] LABS: Basophils Percent Auto 0.8 % (0.2-1.2); Eosinophils Percent Auto 0.5 % (0-4.4); Hemoglobin 7.6 g/dL (12.0-15.0); Immature Granulocyte Absolute 0.29 K/mm3 (0.00-0.031); Immature Granulocyte Percent A 7.5 % (0-0.5); Lymphocytes Absolute Auto 0.41 K/mm3 (0.9-3.2); Lymphocytes Percent Auto 10.5 % (18.3-44.2); Mean Corpuscular HGB Conc 30.4 g/dl (32-36); Mean Corpuscular Hemoglobin 28.4 pg (26-34); Mean Corpuscular Volume 93.3 fl (80-100); Mean Platelet Volume 10.7 fl (7.4-10.4); Monocytes Absolute Auto 0.4 K/mm3 (0.1-0.6); Monocytes Percent Auto 11.3 % (2.6-8.5); Neutrophils Absolute Auto 2.7 K/mm3 (1.3-6.7); Neutrophils Percent Auto 69.4 % (45.5-73.1); Platelet Count Result 133 k/mm3 (150-375); Red Blood Count 2.68 M/mm3 (4.2-5.4); Red Cell Distribution Width 17.7 % (11.5-14.5); White Blood Count 3.9 K/mm3 (4.5-10.0)
[2022-08-09 14:51] LABS: Alanine Aminotransferase 18 U/L (6-35); Albumin Level 3.2 g/dL (3.5-5.1); Alkaline Phosphatase 93 U/L (38-126); Anion Gap 16 mmol/L (8-16); Aspartate Amino Transferase 30 U/L (14-36); Bilirubin,Total 0.6 mg/dL (0.2-1.3); Blood Urea Nitrogen 30 mg/dL (7-17); Carbon Dioxide 19 mmol/L (22-30); Chloride 101 mmol/L (98-107); Estimated CRCL calculation 11 ml/min; Estimated Glomerular Filt Rate 9; Glucose 119 mg/dL (65-110); Potassium 4.8 mmol/L (3.4-5.0); Sodium 136 mmol/L (137-145)
[2022-08-09 15:06] LABS: Platelet Estimate Decreased (Adequate)
[2022-08-09 15:08] LABS: Anisocytosis 2+ (NORMAL); Hypochromasia 1+ (NORMAL); Schistocytes None Seen (NORMAL)
[2022-08-09 15:20] LABS: Influenza A QL RT-PCR Negative (Negative); Influenza B QL RT-PCR Negative (Negative); SARS-CoV-2 RNA PCR Negative
--- NOTE | 2022-08-09 15:30 | ED.FEVER ---
HPI - Fever General Chief Complaint: Fever Stated Complaint: fever x 3 days, UTI s/sx Time Seen by Provider: 08/09/22 12:44 History of Present Illness HPI Narrative: Patient is a 62-year-old female who presents ER with fever. She was seen at an urgent care last night and told she should come here because she could potentially be septic. At that time she was febrile and diaphoretic. She has been having burning urination and frequent urination. She is concerned she could have a UTI but they cannot tell last night. She was not prescribed any antibiotics. Patient is feeling improved today but is still having fevers. Patient has history of renal transplant with rejection. She is not currently immunosuppressed. Dr. Hope is her rating officer and oversees her dialysis. Related Data Home Medications Medication Instructions Recorded Confirmed aspirin 81 mg tablet,delayed 81 mg PO DAILY 10/24/19 08/09/22 release melatonin 10 mg capsule 10 mg PO HS 08/31/20 08/09/22 diphenhydramine HCl 25 mg capsule 50 mg PO HS 11/03/20 08/09/22 (Benadryl) rosuvastatin 20 mg tablet 20 mg PO DAILY 06/07/21 08/09/22 allopurinol 100 mg tablet 150 mg PO DAILY 07/22/22 08/09/22 benzonatate 200 mg capsule 200 mg PO PRN PRN congestion 07/22/22 08/09/22 calcitriol 0.25 mcg capsule 0.25 mcg PO DAILY 07/22/22 08/09/22 cinacalcet 30 mg tablet 30 mg PO BID 07/22/22 08/09/22 sitagliptin phosphate 25 mg tablet 25 mg PO DAILY 07/22/22 08/09/22 (Januvia) bumetanide 2 mg tablet 2 mg PO DAILY 08/09/22 08/09/22 cholecalciferol (vitamin D3) 100 100 mcg PO DAILY 08/09/22 08/09/22 mcg (4,000 unit) tablet cyclobenzaprine 5 mg tablet 5 mg PO PRN PRN Muscle Spasm 08/09/22 08/09/22 doxazosin 1 mg tablet 1 mg PO DAILY 08/09/22 08/09/22 lansoprazole 30 mg capsule,delayed 30 mg PO BID 08/09/22 08/09/22 release metoprolol succinate 50 mg 50 mg PO DAILY 08/09/22 08/09/22 tablet,extended release 24 hr nifedipine 30 mg tablet,extended 30 mg PO BID 08/09/22 08/09/22 release valganciclovir 450 mg tablet See Rx Instructions .Route .COMPLEX 08/09/22 08/09/22 Allergies Allergy/AdvReac Type Severity Reaction Status Date / Time amoxicillin Allergy Unknown Rash Verified 08/09/22 12:37 clavulanic acid Allergy Unknown RASH Verified 08/09/22 12:37 fentanyl AdvReac Unknown very Verified 08/09/22 12:37 emotional crying levofloxacin AdvReac Unknown Nausea And Verified 08/09/22 12:37 Vomiting Review of Systems Review of Systems: All systems reviewed & are unremarkable except as noted in HPI and below Constitutional: Constitutional: Reports chills, Reports fatigue and Reports fever(s) ENT: Denies nasal congestion and Denies sore throat Cardiovascular: Cardiovascular: Denies chest pain and Denies radiating jaw, neck or arm pain Respiratory: Respiratory: Denies cough, Denies dyspnea and Denies wheezing Genitourinary: Genitourinary: Reports nocturia and Reports dysuria [facility] Past Medical History Medical History Anemia Arthritis Cancer GERD (gastroesophageal reflux disease) Hemoglobin A1c less than 7.0% A1C = 6.8 on 08/21/2020 HTN (hypertension) Hyperlipidemia Kidney disease Obesity Surgical History Surgical History Renal transplant recipient Renal transplant, status post Family History Family History Mother Family history of thyroid disease Family history of osteoporosis Depression Hypertension Family history of elevated blood lipids Family history of arthritis Family history of chronic obstructive pulmonary disease Family history of Alzheimer's disease Family history of atrial fibrillation Sibling Family history of thyroid disease Family history of hypercholesterolemia Hypertension Father Family history of hypercholesterolemia Hypertension Family history of car
--- NOTE | 2022-08-09 17:15 | PM.IMHP ---
H&P: HPI History of Present Illness Date/Time: 08/09/22 17:15 Chief Complaint: Fever and symptoms of UTI. 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 She still urinates and recently she has been having discomfort with urination and has noticed that her urine smells strong. Additionally she reports body aches, fever to 103? Fahrenheit, chills, and loose stools which have improved since taking Imodium. She was afebrile on arrival to the emergency department however she has been taking acetaminophen at home. Blood pressures have been stable though she has been persistently tachycardic in the low 100s. Urinalysis today was negative for nitrates and was positive for leukocyte esterase, white blood cells, and bacteria. On exam she was quite tender to palpation in the left lower quadrant at the site of her transplant and a CT of the abdomen and pelvis showed perinephric stranding around the transplanted kidney which could reflect pyelonephritis. She is being admitted in this setting for IV antibiotics. Review of Systems Review of Systems: Twelve systems were reviewed and are negative except for as per HPI. [facility] Past Medical History Medical History (Updated 08/09/22 @ 23:50 by Iris Foster PA-C) Arthritis Chronic anemia Cytomegalovirus End-stage renal disease on hemodialysis Gastroesophageal reflux disease Hyperlipidemia Hypertension Renal transplant recipient Failed transplant now on hemodialysis. Thrombocytopenia Type 2 diabetes mellitus Wilm's tumor of right kidney Surgical History Surgical History (Updated 08/09/22 @ 23:46 by Iris Foster PA-C) History of appendectomy History of cholecystectomy History of hysterectomy History of renal transplant (09/2018) History of right nephrectomy As a child for Wilms tumor. Family History Family History Mother Family history of thyroid disease Family history of osteoporosis Depression Hypertension Family history of elevated blood lipids Family history of arthritis Family history of chronic obstructive pulmonary disease Family history of Alzheimer's disease Family history of atrial fibrillation Sibling Family history of thyroid disease Family history of hypercholesterolemia Hypertension Father Family history of hypercholesterolemia Hypertension Family history of cardiovascular disease Family history of coronary artery disease Social History Social History (Updated 08/09/22 @ 23:47 by Iris Foster PA-C) Social History: Surrogate medical decision maker: Vitaly Casey, spouse. Code status: Full code. Smoking status: Never smoker Second hand tobacco smoke exposure: No Alcohol intake: current Alcohol use details: Occasional Substance use: never Substance use type: does not use Lack of Transportation: No Lack of Food: Never True Current Housing: I Have Housing Concerned About Future Housing: No Difficulty Paying Gas/Electric Bills: No Difficulty Paying for Meds: No Currently Unemployed: No Education: High School Diploma/GED Difficulty w/ Childcare or Family Care: No Additional living arrangements comments: Lives in [place] with spouse. 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 Spiritual care concerns: No Meds Home Medications and Allergies Home Medications Medication Instructions Recorded Confirmed Type aspirin 81 mg tablet,delayed 81 mg PO DAILY 10/24/19 08/09/22 History release melatonin 10 mg capsule 10 mg PO HS 08/31/20 08/09/22 History diphenhydramine HCl 25 mg capsule
--- NOTE | 2022-08-09 18:29 | PC.NURSE ---
This patient, Brandy Casey, was admitted to Medical Room 342-01. Patient/family oriented to hospital policies and general routines including ID bracelet, bed and alarms, visiting hours, pain management, procedures, bathroom and other care routines, personal items, smoking policy, room service/diet, and visiting hours. Information on how to activate the Rapid Response Team has been discussed. Patient/Family are encouraged to report perceived risks to care and to ask questions if they do not understand what they are told or what they should do.
[2022-08-09] MEDS: SODIUM CHLORIDE 0.9% IV 1,000 ML 125 ML IV CONT (18:52)
[2022-08-09 19:00] LABS: Lactic Acid Reflex 0.7 mmol/L (0.7-2.0)
[2022-08-09] MEDS: ONDANSETRON INJ 4 MG/2 ML VIAL IV PUSH (19:51)
[2022-08-09 20:40] LABS: Glucose Point of Care 139 mg/dl (65-105)
[2022-08-10] VITALS (25 sets, daily range): BP systolic 96–156; BP diastolic 61–109; PULSE 97–146; RESP 16–20; TEMP 36–37.2; O2SAT 95–96
[2022-08-10 05:56] LABS: Hematocrit 23.5 % (37.0-47.0); Hemoglobin 7.2 g/dL (12.0-15.0); Mean Corpuscular HGB Conc 30.6 g/dl (32-36); Mean Corpuscular Hemoglobin 29.1 pg (26-34); Mean Corpuscular Volume 95.1 fl (80-100); Mean Platelet Volume 9.8 fl (7.4-10.4); Platelet Count Result 114 k/mm3 (150-375); Red Blood Count 2.47 M/mm3 (4.2-5.4); Red Cell Distribution Width 17.3 % (11.5-14.5); White Blood Count 2.9 K/mm3 (4.5-10.0)
[2022-08-10 06:10] LABS: Alanine Aminotransferase 19 U/L (6-35); Albumin Level 2.9 g/dL (3.5-5.1); Alkaline Phosphatase 102 U/L (38-126); Anion Gap 13 mmol/L (8-16); Aspartate Amino Transferase 32 U/L (14-36); Bilirubin,Total 0.6 mg/dL (0.2-1.3); Blood Urea Nitrogen 34 mg/dL (7-17); Calcium 7.7 mg/dL (8.4-10.2); Carbon Dioxide 18 mmol/L (22-30); Chloride 102 mmol/L (98-107); Estimated CRCL calculation 10 ml/min; Estimated Glomerular Filt Rate 7; Glucose 102 mg/dL (65-110); Magnesium 1.5 mg/dL (1.6-2.3); Potassium 4.9 mmol/L (3.4-5.0); Sodium 133 mmol/L (137-145)
[2022-08-10 07:15] LABS: Hepatitis B Surface Antigen Negative (Negative)
[2022-08-10 07:32] LABS: Hepatitis B Surface Anti Res Positive
--- NOTE | 2022-08-10 08:00 | PC.NURSE ---
Patient is at dialysis
[2022-08-10 08:43] LABS: Glucose Point of Care 100 mg/dl (65-105)
--- NOTE | 2022-08-10 12:11 | PM.CNNEP ---
Assessment and Plan Assessment and plan (1) End stage renal disease: Code(s): N18.6 - End stage renal disease Status: Chronic Assessment and Plan: HD today and continue M/W/F dialysis schedule follow electrolytes, volume status, and clearance (2) Urinary tract infection: Code(s): N39.0 - Urinary tract infection, site not specified Status: Acute Assessment and Plan: as noted by admission UA follow up on cultures on IV antibiotics (3) Pyelonephritis of transplanted kidney: Code(s): T86.19 - Other complication of kidney transplant; N12 - Tubulo-interstitial nephritis, not specified as acute or chronic Status: Acute Assessment and Plan: as suggested by admission imaging follow culture data (blood and urine) continue IB antibiotics (4) Hypertension: Qualifiers: Hypertension type: primary hypertension Qualified Code(s): I10 - Essential (primary) hypertension Code(s): I10 - Essential (primary) hypertension Status: Chronic Assessment and Plan: reasonable control at this time follow trend of hemodynamics (5) Chronic anemia: Code(s): D64.9 - Anemia, unspecified Status: Chronic Assessment and Plan: due to ESRD Epogen with HD however, acute illnesss/infection may have led to epogen resistance follow trend of H/H (6) Type 2 diabetes mellitus: Qualifiers: Diabetes mellitus intermediate card tender insulin use: without intermediate card tender use Diabetes mellitus complication status: with kidney complications Diabetes mellitus complication detail: with chronic kidney disease Chronic kidney disease stage: on chronic dialysis Qualified Code(s): E11.22 - Type 2 diabetes mellitus with diabetic chronic kidney disease; N18.6 - End stage renal disease; Z99.2 - Dependence on renal dialysis Code(s): E11.9 - Type 2 diabetes mellitus without complications Status: Chronic Assessment and Plan: follow accuchecks glycemic control Will continue to follow. History of Present Illness Reason for Consult Consult date: 08/10/22 Reason for consult: end stage renal disease Chief Complaint Chief complaint: UTI History of Present Illness Narrative: The patient is a 62-year-old female with a past medical history as outlined below who presented to [facility] Emergency room for further evaluation of fever and symptoms of a urinary tract infection. Despite the fact the patient is on dialysis, she still urinates and notes increasing dysuria / discomfort in the last few days in association with a strong smell. Other associated symptoms include body aches, fever up to 103?, chills, and loose stools although the loose stools have improved with use of Imodium. Given the persistence of the symptoms despite conservative therapy, she presented to the emergency room for further assessment. Workup and evaluation in the emergency room demonstrated the patient to be hemodynamically stable with no evidence of fever although she had been taking Tylenol up until her presentation to the emergency room. She had mild tachycardia but was otherwise in no apparent distress. Urinalysis was significant for a suspected urinary tract infection and her exam was concerning for tenderness to palpation in the left lower quadrant where her transplant kidney was located. She subsequently underwent a CT scan of the abdomen pelvis which demonstrated perinephric stranding around the transplant kidney concerning for possible pyelonephritis. Given the patient's complex medical history as mentioned above in conjunction with the laboratory and imaging findings, appropriate cultures were obtained and the patient was started on broad-spectrum IV antibiotic therapy with subsequent admission to the hospital for further evaluation and therapy. Renal consultation was requested due to her end-stage renal disease. The patient's history with adama
--- NOTE | 2022-08-10 17:09 | PM.IMPN ---
Progress Note: A&P Assessment and Plan (1) Urinary tract infection: Code(s): N39.0 - Urinary tract infection, site not specified Status: Acute Assessment and Plan: patient presented to the emergency department with complaints of body aches, fever, chills, dysuria. UA showed trace leukocytes with greater than 75 wbc's but many epi cells noted. Patient was started on IV cefepime 1 g Q 24 hours due to prior urine culture results. Preliminary urine culture shows Gram-negative bacilli growth id and sensitivity still pending (2) Pyelonephritis of transplanted kidney: Code(s): T86.19 - Other complication of kidney transplant; N12 - Tubulo-interstitial nephritis, not specified as acute or chronic Status: Acute Assessment and Plan: 08/09/2022 CT abdomen and pelvis shows perinephric stranding surrounding the left pelvic transplant kidney suggesting pyelonephritis. Patient presented with systemic symptoms of infection. WBC 2.9, she is not currently on any immunosuppressants. Continue management as above (3) End-stage renal disease on hemodialysis: Code(s): N18.6 - End stage renal disease; Z99.2 - Dependence on renal dialysis Status: Chronic Assessment and Plan: patient is currently receiving hemodialysis Mondays, Wednesdays, Monday schedule since transplanted kidney rejection. She is a patient of Dr. Hope. Nephrology consulted and appreciate recommendations and management of hemodialysis. Patient is currently receiving Epogen IV during dialysis Monitor daily weights, Trend renal profile (4) Chronic anemia: Code(s): D64.9 - Anemia, unspecified Status: Chronic Assessment and Plan: Patient admitted with hemoglobin 7.6, hematocrit 25%. Prior CBC records from 2019. Patient is on hemodialysis for end-stage renal disease. She is receiving Epogen IV during HD 08/11/2022 hemoglobin 6.7 /hematocrit 21.3%. Transfuse 1 unit PRBC and repeat H&H 2 hours following transfusion. Trend H&H and transfuse if hemoglobin less than 7 No signs and symptoms of acute bleeding. But will order stool occult x1 (5) Thrombocytopenia: Code(s): D69.6 - Thrombocytopenia, unspecified Status: Chronic Assessment and Plan: Chronic, stable, platelets 116 (6) Type 2 diabetes mellitus: Qualifiers: Diabetes mellitus alf insulin use: without computer terminal operator use Diabetes mellitus complication status: with kidney complications Diabetes mellitus complication detail: with chronic kidney disease Chronic kidney disease stage: on chronic dialysis Qualified Code(s): E11.22 - Type 2 diabetes mellitus with diabetic chronic kidney disease; N18.6 - End stage renal disease; Z99.2 - Dependence on renal dialysis Code(s): E11.9 - Type 2 diabetes mellitus without complications Status: Chronic Assessment and Plan: Chronic, stable, not insulin-dependent. Glucose range 159-100 this hospitalization. Continue Januvia. Accu-Cheks a.c. HS and low-dose aspart sliding scale insulin with meals p.r.n. hypoglycemic protocol (7) Hypertension: Qualifiers: Hypertension type: primary hypertension Qualified Code(s): I10 - Essential (primary) hypertension Code(s): I10 - Essential (primary) hypertension Status: Chronic Assessment and Plan: chronic, stable, BP 105/63, heart rate 76. Continue Toprol XL, nifedipine, and Bumex at home doses (8) Gastroesophageal reflux disease: Qualifiers: Esophagitis presence: without esophagitis Qualified Code(s): K21.9 - Gastro-esophageal reflux disease without esophagitis Code(s): K21.9 - Gastro-esophageal reflux disease without esophagitis Status: Chronic Assessment and Plan: chronic, stable. Continue PPI (9) Bacteremia due to Gram-negative bacteria: Code(s): R78.81 - Bacteremia Status: Acute Assessment and Plan: blood cultures drawn on
[2022-08-10 17:25] LABS: Glucose Point of Care 124 mg/dl (65-105)
[2022-08-10] MEDS: CINACALCET 30 MG TABLET PO (17:57)
[2022-08-10] MEDS: METOPROLOL SUCCINATE EXT REL 25 MG TABCR PO (18:32)
[2022-08-10] MEDS: NIFEdipine 30 MG TAB.ER.24 PO (20:23)
[2022-08-10] MEDS: CENTRAL LINE FLUSH 10 ML IV PUSH (20:24)
[2022-08-10] MEDS: CYCLOBENZAPRINE HCL 5 MG TABLET PO (20:24)
[2022-08-10] MEDS: diphenhydrAMINE HCl CAP 25 MG CAPSULE 50 MG PO (20:24)
[2022-08-10] MEDS: MELATONIN 5 MG TABLET 10 MG PO (20:24)
[2022-08-10 20:42] LABS: Glucose Point of Care 135 mg/dl (65-105)
[2022-08-11] VITALS (11 sets, daily range): BP systolic 100–138; BP diastolic 62–76; PULSE 76–99; RESP 16–20; TEMP 36.1–37; O2SAT 92–94
[2022-08-11] MEDS: CENTRAL LINE FLUSH 10 ML IV PUSH ×2 (05:48→20:43)
[2022-08-11 06:22] LABS: Anion Gap 10 mmol/L (8-16); Blood Urea Nitrogen 19 mg/dL (7-17); Calcium 7.4 mg/dL (8.4-10.2); Carbon Dioxide 26 mmol/L (22-30); Chloride 96 mmol/L (98-107); Estimated CRCL calculation 14 ml/min; Estimated Glomerular Filt Rate 11; Glucose 121 mg/dL (65-110); Potassium 3.9 mmol/L (3.4-5.0); Sodium 132 mmol/L (137-145)
[2022-08-11 06:24] LABS: Hematocrit 21.3 % (37.0-47.0); Mean Corpuscular HGB Conc 30.5 g/dl (32-36); Mean Corpuscular Hemoglobin 28.9 pg (26-34); Mean Corpuscular Volume 94.7 fl (80-100); Mean Platelet Volume 10.9 fl (7.4-10.4); Platelet Count Result 116 k/mm3 (150-375); Red Blood Count 2.25 M/mm3 (4.2-5.4); Red Cell Distribution Width 17.3 % (11.5-14.5)
[2022-08-11 08:21] LABS: Hemoglobin 6.5 g/dL (12.0-15.0); White Blood Count 1.7 K/mm3 (4.5-10.0)
[2022-08-11 08:29] LABS: Band Neutrophils Percent 18 % (0-6); Hypochromasia 2+ (NORMAL); Lymphocytes Absolute Manual 0.34 K/mm3 (1.1-4.5); Metamyelocytes Percent 4 %; Microcytosis 1+ (NORMAL); Monocytes Absolute Manual 0.17 K/mm3 (0.1-0.90); Monocytes Percent Manual 10 % (3-9); Neutrophils Absolute Manual 1.12 K/mm3 (1.7-7.2); Neutrophils Percent Manual 48 % (46-73); Tear Drop Cells 1+ (NORMAL); Total Cells Counted 100
[2022-08-11 08:30] LABS: Schistocytes None Seen (NORMAL)
[2022-08-11 08:32] LABS: Glucose Point of Care 113 mg/dl (65-105)
[2022-08-11] MEDS: CHOLECALCIFEROL 1,000 UNITS TABLET 4000 UNITS PO (09:00)
[2022-08-11] MEDS: BUMETANIDE 1 MG TABLET 2 MG PO (09:00)
[2022-08-11] MEDS: CINACALCET 30 MG TABLET PO ×2 (09:01→17:18)
[2022-08-11] MEDS: calcitrioL 0.25 MCG CAPSULE PO (09:01)
[2022-08-11] MEDS: METOPROLOL SUCCINATE EXT REL 25 MG TABCR 75 MG PO (09:01)
[2022-08-11] MEDS: DOXAZOSIN MESYLATE 1 MG TABLET PO (09:01)
[2022-08-11] MEDS: PANTOPRAZOLE 40 MG TABLET PO (09:02)
[2022-08-11] MEDS: NIFEdipine 30 MG TAB.ER.24 PO (09:02)
[2022-08-11] MEDS: allopurinoL 150 MG TABLET PO (09:02)
[2022-08-11] MEDS: ASPIRIN 81 MG ENTERIC TABLET PO (09:02)
[2022-08-11] MEDS: ROSUVASTATIN 10 MG TABLET 20 MG PO (09:02)
[2022-08-11 09:35] LABS: Magnesium 1.7 mg/dL (1.6-2.3); Phosphorus 5.5 mg/dL (2.5-4.5)
--- NOTE | 2022-08-11 12:17 | P.PNNP_ITS ---
Progress Note: A&P Assessment and Plan (1) End stage renal disease: Code(s): N18.6 - End stage renal disease Status: Chronic Assessment and Plan: * HD tomorrow and continue M/W/ dialysis schedule * follow electrolytes, volume status, and clearance (2) Bacteremia: Code(s): R78.81 - Bacteremia Status: Acute Assessment and Plan: * given urine culture results and prelim blood culures, suspect urinary source * IV antibiotics have been adjusted * follow repeat blood cultures * if blood cultures persistently positive, may need to consider tunnelled HD catheter removal (3) Urinary tract infection: Code(s): N39.0 - Urinary tract infection, site not specified Status: Acute Assessment and Plan: * as noted by admission UA * urine culture with E.coli * on IV antibiotics (4) Pyelonephritis of transplanted kidney: Code(s): T86.19 - Other complication of kidney transplant; N12 - Tubulo-interstitial nephritis, not specified as acute or chronic Status: Acute Assessment and Plan: * as suggested by admission imaging * culture data (blood and urine) noted * continue IV antibiotics (5) Hypertension: Qualifiers: Hypertension type: primary hypertension Qualified Code(s): I10 - Essential (primary) hypertension Code(s): I10 - Essential (primary) hypertension Status: Chronic Assessment and Plan: * reasonable control at this time * follow trend of hemodynamics (6) Chronic anemia: Code(s): D64.9 - Anemia, unspecified Status: Chronic Assessment and Plan: * due to ESRD * Epogen with HD * however, acute illnesss/infection may have led to epogen resistance * PRBC transfusion per protocol * follow trend of H/H (7) Type 2 diabetes mellitus: Qualifiers: Diabetes mellitus terminal makeup operator insulin use: without alf use Diabetes mellitus complication status: with kidney complications Diabetes mellitus complication detail: with chronic kidney disease Chronic kidney disease stage: on chronic dialysis Qualified Code(s): E11.22 - Type 2 diabetes mellitus with diabetic chronic kidney disease; N18.6 - End stage renal disease; Z99.2 - Dependence on renal dialysis Code(s): E11.9 - Type 2 diabetes mellitus without complications Status: Chronic Assessment and Plan: * follow accuchecks * glycemic control Will continue to follow. Subjective Date/time seen: 08/11/22 12:17 Tolerated dialysis yesterday but noted AM labs with low H/H along with positive urine and blood culture results; PRBC transfusion today and remains on IV antibiotics being adjusted; she still feels fatigued and weak in general. Exam Narrative: General: WD/WN female in NAD Heart: normal S1 and S2; no rub Lungs: clear to auscultation Abdomen: soft, nontender, nondistended, positive bowel sounds Extremities: no cyanosis or clubbing; no edema Skin: warm and dry Objective Data Vital Signs Vital Signs: Vital Signs Temp Pulse Resp BP Pulse Ox O2 Del Method 08/11/22 12:40 36.6 C 79 16 109/63 93 08/11/22 12:20 36.8 C 84 18 120/66 92 08/11/22 09:00 Room Air 08/11/22 09:01 90 08/11/22 04:34 37.0 C 90 18 109/63 92 08/11/22 00:12 36.1 C L 99 18 138/72 92 08/10/22 20:00 97 20 96
--- NOTE | 2022-08-11 12:17 | PM.PNNEP ---
Progress Note: A&P Assessment and Plan (1) End stage renal disease: Code(s): N18.6 - End stage renal disease Status: Chronic Assessment and Plan: HD tomorrow and continue M/W/ dialysis schedule follow electrolytes, volume status, and clearance (2) Bacteremia: Code(s): R78.81 - Bacteremia Status: Acute Assessment and Plan: given urine culture results and prelim blood culures, suspect urinary source IV antibiotics have been adjusted follow repeat blood cultures if blood cultures persistently positive, may need to consider tunnelled HD catheter removal (3) Urinary tract infection: Code(s): N39.0 - Urinary tract infection, site not specified Status: Acute Assessment and Plan: as noted by admission UA urine culture with E.coli on IV antibiotics (4) Pyelonephritis of transplanted kidney: Code(s): T86.19 - Other complication of kidney transplant; N12 - Tubulo-interstitial nephritis, not specified as acute or chronic Status: Acute Assessment and Plan: as suggested by admission imaging culture data (blood and urine) noted continue IV antibiotics (5) Hypertension: Qualifiers: Hypertension type: primary hypertension Qualified Code(s): I10 - Essential (primary) hypertension Code(s): I10 - Essential (primary) hypertension Status: Chronic Assessment and Plan: reasonable control at this time follow trend of hemodynamics (6) Chronic anemia: Code(s): D64.9 - Anemia, unspecified Status: Chronic Assessment and Plan: due to ESRD Epogen with HD however, acute illnesss/infection may have led to epogen resistance PRBC transfusion per protocol follow trend of H/H (7) Type 2 diabetes mellitus: Qualifiers: 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 Subjective Date/time seen: 08/11/22 12:17 Tolerated dialysis yesterday but noted AM labs with low H/H along with positive urine and blood culture results; PRBC transfusion today and remains on IV antibiotics being adjusted; she still feels fatigued and weak in general. Exam Narrative: General: WD/WN female in NAD Heart: normal S1 and S2; no rub Lungs: clear to auscultation Abdomen: soft, nontender, nondistended, positive bowel sounds Extremities: no cyanosis or clubbing; no edema Skin: warm and dry Objective Data Vital Signs Vital Signs: Vital Signs Temp Pulse Resp BP Pulse Ox O2 Del Method 08/11/22 12:40 36.6 C 79 16 109/63 93 08/11/22 12:20 36.8 C 84 18 120/66 92 08/11/22 09:00 Room Air 08/11/22 09:01 90 08/11/22 04:34 37.0 C 90 18 109/63 92 08/11/22 00:12 36.1 C L 99 18 138/72 92 08/10/22 20:00 97 20 96 Room Air 08/10/22 19:57 36.6 C 97 20 131/73 96 08/10/22 18:32 115 H 08/10/22 15:13 36.6 C 118 H 18 131/78 95 Intake/Output Intake/Output: Intake & Output 08/08/22 08/09/22 08/10/22 08/11/22 23:59 23:59 23:59 23:59 Intake Total 50 1690 590 Output Total 3700 150 Balance 50 -2009 440 Meds/Results Medications: Active Medications Generic Name Dose Route Start Last Admin Trade Name Freq PRN Reason Stop Dose Admin Acetaminophen 650 mg 08/09/22 15:41 Acetaminophen 325 Mg Tablet PO Q4H PRN Mild Pain (1-3) or Fever Hydrocodone Bitart/Acetamino
[2022-08-11 12:29] LABS: Glucose Point of Care 159 mg/dl (65-105)
[2022-08-11] MEDS: SODIUM CHLORIDE 0.9% IV 250 ML 30 ML IV CONT (12:33)
--- NOTE | 2022-08-11 17:17 | PM.IMPN ---
Progress Note: A&P Assessment and Plan (1) Urinary tract infection: Code(s): N39.0 - Urinary tract infection, site not specified Status: Acute Assessment and Plan: patient presented to the emergency department with complaints of body aches, fever, chills, dysuria. UA showed trace leukocytes with greater than 75 wbc's but many epi cells noted. Patient was started on IV cefepime 1 g Q 24 hours due to prior urine culture results. Preliminary urine culture showed showed ESBL e.coli growth with extensive antibiotic resistance; sensitive to carbapenems and Zosyn, however, patient has amoxicillin allergy and carbapenems with better efficacy for ESBL infections. HD dosed Ertapenem Q24 hours started. She will need 14 days total abx d/t bacteremia. (2) Pyelonephritis of transplanted kidney: Code(s): T86.19 - Other complication of kidney transplant; N12 - Tubulo-interstitial nephritis, not specified as acute or chronic Status: Acute Assessment and Plan: 08/09/2022 CT abdomen and pelvis shows perinephric stranding surrounding the left pelvic transplant kidney suggesting pyelonephritis. Patient presented with systemic symptoms of infection. WBC 2.9, she is not currently on any immunosuppressants. Continue management as above (3) Bacteremia due to Gram-negative bacteria: Code(s): R78.81 - Bacteremia Status: Acute Assessment and Plan: blood cultures drawn on 08/09 positive for gram negative bacilli growth in 2 of 2 sets and presumed to be same organism cultured in her urine. Continued on antibiotic change as above and adjust per culture results Will repeat blood cultures in 48 hours for microbial clearing with antibiotic change. She will need 14 days IV antibiotics from negative cultures. Patient has vascath and port access and will monitor closely. Central line insertion sites without s/s infection at this time. (4) End-stage renal disease on hemodialysis: Code(s): N18.6 - End stage renal disease; Z99.2 - Dependence on renal dialysis Status: Chronic Assessment and Plan: patient is currently receiving hemodialysis Mondays, Wednesdays, Monday schedule since transplanted kidney rejection. She is a patient of Dr. Hope. Nephrology consulted and appreciate recommendations and management of hemodialysis. Patient is currently receiving Epogen IV during dialysis Monitor daily weights Trend renal profile (5) Chronic anemia: Code(s): D64.9 - Anemia, unspecified Status: Chronic Assessment and Plan: Patient admitted with hemoglobin 7.6, hematocrit 25%. Prior CBC records from 2019. Patient is on hemodialysis for end-stage renal disease. She is receiving Epogen IV during HD 08/11/2022 hemoglobin 6.7 /hematocrit 21.3%. Transfuse 1 unit PRBC and repeat H&H 2 hours following transfusion. Trend H&H and transfuse if hemoglobin less than 7 No signs and symptoms of acute bleeding. But will order stool occult x1 (6) Thrombocytopenia: Code(s): D69.6 - Thrombocytopenia, unspecified Status: Chronic Assessment and Plan: Chronic, stable, platelets 116 (7) Type 2 diabetes mellitus: Qualifiers: Chronic kidney disease stage: on chronic dialysis Diabetes mellitus complication detail: with chronic kidney disease Diabetes mellitus complication status: with kidney complications Diabetes mellitus [facility] insulin use: without ferry terminal agent use Qualified Code(s): E11.22 - Type 2 diabetes mellitus with diabetic chronic kidney disease; N18.6 - End stage renal disease; Z99.2 - Dependence on renal dialysis Code(s): E11.9 - Type 2 diabetes mellitus without complications Status: Chronic Assessment and Plan: Chronic, stable, not insulin-dependent. Glucose <180 mg/dL this hospitalization. Continue Januvia. Accu-Cheks a.c. HS and low-dose aspart sliding scale insulin with meals p.r.n. hypoglycemic protocol (8) Hypertension:
[2022-08-11] MEDS: ERTAPENEM SODIUM 0.5 GM in SODIUM CHLORIDE 0.9% IV 50 ML IVPB (17:18)
[2022-08-11 19:25] LABS: Glucose Point of Care 128 mg/dl (65-105)
[2022-08-11 19:55] LABS: Hematocrit 33.4 % (37.0-47.0); Hemoglobin 10.5 g/dL (12.0-15.0)
[2022-08-11 20:20] LABS: Glucose Point of Care 133 mg/dl (65-105)
[2022-08-11 20:26] LABS: IFOB Positive Control Positive; Immunochemical Fecal Occult Bl Negative (N)
[2022-08-11] MEDS: MELATONIN 5 MG TABLET 10 MG PO (20:42)
[2022-08-11] MEDS: CYCLOBENZAPRINE HCL 5 MG TABLET PO (20:42)
[2022-08-11] MEDS: diphenhydrAMINE HCl CAP 25 MG CAPSULE 50 MG PO (20:42)
[2022-08-12] VITALS (16 sets, daily range): BP systolic 108–133; BP diastolic 58–78; PULSE 73–104; RESP 16–18; TEMP 36.5–37.7; O2SAT 91–97
[2022-08-12] MEDS: CENTRAL LINE FLUSH 10 ML IV PUSH ×3 (05:49→21:44)
[2022-08-12 06:29] LABS: Basophils Percent Auto 1.2 % (0.2-1.2); Eosinophils Absolute Auto 0.1 K/mm3 (0-0.3); Eosinophils Percent Auto 3.5 % (0-4.4); Hematocrit 25.9 % (37.0-47.0); Hemoglobin 8.2 g/dL (12.0-15.0); Immature Granulocyte Absolute 0.21 K/mm3 (0.00-0.031); Immature Granulocyte Percent A 12.4 % (0-0.5); Lymphocytes Percent Auto 23.5 % (18.3-44.2); Mean Corpuscular HGB Conc 31.7 g/dl (32-36); Mean Corpuscular Hemoglobin 28.9 pg (26-34); Mean Corpuscular Volume 91.2 fl (80-100); Mean Platelet Volume 11.3 fl (7.4-10.4); Monocytes Absolute Auto 0.4 K/mm3 (0.1-0.6); Monocytes Percent Auto 21.8 % (2.6-8.5); Neutrophils Absolute Auto 0.6 K/mm3 (1.3-6.7); Neutrophils Percent Auto 37.6 % (45.5-73.1); Platelet Count Result 132 k/mm3 (150-375); Red Blood Count 2.84 M/mm3 (4.2-5.4); Red Cell Distribution Width 17.2 % (11.5-14.5)
[2022-08-12 06:50] LABS: Alanine Aminotransferase 49 U/L (6-35); Albumin Level 2.9 g/dL (3.5-5.1); Alkaline Phosphatase 119 U/L (38-126); Anion Gap 15 mmol/L (8-16); Aspartate Amino Transferase 101 U/L (14-36); Bilirubin,Total 0.4 mg/dL (0.2-1.3); Blood Urea Nitrogen 33 mg/dL (7-17); Calcium 7.5 mg/dL (8.4-10.2); Carbon Dioxide 23 mmol/L (22-30); Chloride 94 mmol/L (98-107); Estimated CRCL calculation 10 ml/min; Estimated Glomerular Filt Rate 8; Glucose 116 mg/dL (65-110); Potassium 3.7 mmol/L (3.4-5.0); Sodium 132 mmol/L (137-145)
[2022-08-12 07:03] LABS: White Blood Count 1.7 K/mm3 (4.5-10.0)
[2022-08-12 07:19] LABS: Hypochromasia 1+ (NORMAL); Microcytosis 1+ (NORMAL); Ovalocytes 1+ (NORMAL); Poikilocytosis 1+ (NORMAL); Tear Drop Cells 1+ (NORMAL)
[2022-08-12 07:20] LABS: Schistocytes 1+ (NORMAL)
--- NOTE | 2022-08-12 08:00 | PC.NURSE ---
Patient off of unit to dialysis
[2022-08-12] MEDS: SODIUM CHLORIDE 0.9% IV 1,000 ML 999 ML IV CONT (10:32)
[2022-08-12] MEDS: EPOETIN ALFA-EPBX 10,000 UNITS/ML VIAL 10000 UNITS IV PUSH (10:33)
--- NOTE | 2022-08-12 12:05 | PM.PNNEP ---
Progress Note: A&P Assessment and Plan (1) End stage renal disease: Code(s): N18.6 - End stage renal disease Status: Resolved Assessment and Plan: HD today and continue M/W/F dialysis schedule follow electrolytes, volume status, and clearance (2) Bacteremia: Code(s): R78.81 - Bacteremia Status: Resolved Assessment and Plan: blood and urine culture with ESBL E.coli on IV antibiotics follow repeat blood cultures if blood cultures persistently positive, may need to consider tunnelled HD catheter removal (3) Urinary tract infection: Code(s): N39.0 - Urinary tract infection, site not specified Status: Acute Assessment and Plan: as noted by admission UA urine culture with E.coli on IV antibiotics (4) Pyelonephritis of transplanted kidney: Code(s): T86.19 - Other complication of kidney transplant; N12 - Tubulo-interstitial nephritis, not specified as acute or chronic Status: Acute Assessment and Plan: as suggested by admission imaging culture data (blood and urine) noted - E.coli (ESBL) resulted continue IV antibiotics (5) Hypertension: Qualifiers: Hypertension type: primary hypertension Qualified Code(s): I10 - Essential (primary) hypertension Code(s): I10 - Essential (primary) hypertension Status: Chronic Assessment and Plan: reasonable control at this time follow trend of hemodynamics (6) Chronic anemia: Code(s): D64.9 - Anemia, unspecified Status: Chronic Assessment and Plan: due to ESRD Epogen with HD however, acute illnesss/infection may have led to epogen resistance PRBC transfusion per protocol follow trend of H/H (7) Type 2 diabetes mellitus: Qualifiers: Chronic kidney disease stage: on chronic dialysis Diabetes mellitus complication detail: with chronic kidney disease Diabetes mellitus complication status: with kidney complications 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 Subjective Date/time seen: 08/12/22 12:05 Tolerating hemodialysis treatment at the time of my visit (seen on HD at 11:55AM); feels about the same in general; states she has a cough that developed here in the hospital; no other acute issues/complaints voiced; no events overnight or earlier this AM. Exam Narrative: General: WD/WN female in NAD Heart: normal S1 and S2; no rub Lungs: clear to auscultation Abdomen: soft, nontender, nondistended, positive bowel sounds Extremities: no cyanosis or clubbing; no edema Skin: warm and intact Objective Data Vital Signs Vital Signs: Vital Signs Temp Pulse Resp BP Pulse Ox O2 Del Method 08/12/22 12:00 37.1 C 96 16 133/72 08/12/22 11:54 96 127/78 08/12/22 11:30 84 113/78 08/12/22 11:00 76 116/66 08/12/22 10:30 81 108/72 08/12/22 10:00 73 131/75 08/12/22 09:30 76 122/73 08/12/22 09:00 76 114/74 08/12/22 08:30 80 119/76 08/12/22 08:16 84 110/58 L 08/12/22 08:00 Room Air 08/12/22 08:09 36.8 C 90 18 113/59 L 08/12/22 04:55 36.6 C 88 18 121/59 L 92 08/12/22 00:03 36.6 C 98 18 122/64 97 08/11/22 20:00 89 20 94 Room Air 08/11/22 19:44 36.6 C 89 20 121/76 94 Intake/Output Intake/Output: Intake & Output 08/09/22 08/10/22 08/11/22 08/12/22 23:59 23:59 23:59 23:59 Intake Total 50 1690 1970 490 Output Total 3700 150 3000 Balance 7780 -6882 Meds/Results Medications: Active Medications Generic Name Dose Route
--- NOTE | 2022-08-12 12:05 | P.PNNP_ITS ---
Progress Note: A&P Assessment and Plan (1) End stage renal disease: Code(s): N18.6 - End stage renal disease Status: Resolved Assessment and Plan: * HD today and continue M/W/ dialysis schedule * follow electrolytes, volume status, and clearance (2) Bacteremia: Code(s): R78.81 - Bacteremia Status: Resolved Assessment and Plan: * blood and urine culture with ESBL E.coli * on IV antibiotics * follow repeat blood cultures * if blood cultures persistently positive, may need to consider tunnelled HD catheter removal (3) Urinary tract infection: Code(s): N39.0 - Urinary tract infection, site not specified Status: Acute Assessment and Plan: * as noted by admission UA * urine culture with E.coli * on IV antibiotics (4) Pyelonephritis of transplanted kidney: Code(s): T86.19 - Other complication of kidney transplant; N12 - Tubulo-interstitial nephritis, not specified as acute or chronic Status: Acute Assessment and Plan: * as suggested by admission imaging * culture data (blood and urine) noted - E.coli (ESBL) resulted * continue IV antibiotics (5) Hypertension: Qualifiers: Hypertension type: primary hypertension Qualified Code(s): I10 - Essential (primary) hypertension Code(s): I10 - Essential (primary) hypertension Status: Chronic Assessment and Plan: * reasonable control at this time * follow trend of hemodynamics (6) Chronic anemia: Code(s): D64.9 - Anemia, unspecified Status: Chronic Assessment and Plan: * due to ESRD * Epogen with HD * however, acute illnesss/infection may have led to epogen resistance * PRBC transfusion per protocol * follow trend of H/H (7) Type 2 diabetes mellitus: Qualifiers: Chronic kidney disease stage: on chronic dialysis Diabetes mellitus complication detail: with chronic kidney disease Diabetes mellitus complication status: with kidney complications Diabetes mellitus penitentiary insulin use: without penitentiary use Qualified Code(s): E11.22 - Type 2 diabetes mellitus with diabetic chronic kidney disease; N18.6 - End stage renal disease; Z99.2 - Dependence on renal dialysis Code(s): E11.9 - Type 2 diabetes mellitus without complications Status: Chronic Assessment and Plan: * follow accuchecks * glycemic control Will continue to follow. Subjective Date/time seen: 08/12/22 12:05 Tolerating hemodialysis treatment at the time of my visit (seen on HD at 11:55AM); feels about the same in general; states she has a cough that developed here in the hospital; no other acute issues/complaints voiced; no events overnight or earlier this AM. Exam Narrative: General: WD/WN female in NAD Heart: normal S1 and S2; no rub Lungs: clear to auscultation Abdomen: soft, nontender, nondistended, positive bowel sounds Extremities: no cyanosis or clubbing; no edema Skin: warm and intact Objective Data Vital Signs Vital Signs: Vital Signs Temp Pulse Resp BP Pulse Ox O2 Del Method 08/12/22 12:00 37.1 C 96 16 133/72 08/12/22 11:54 96 127/78 08/12/22 11:30 84 113/78 08/12/22 11:00 76 116/66 08/12/22 10:30 81 108/72 08/12/22 10:00 73 131/75 08/12/22 09:30 76 122/73 08/12/22 09:
[2022-08-12 13:04] LABS: Glucose Point of Care 104 mg/dl (65-105)
--- NOTE | 2022-08-12 14:47 | PM.IMPN ---
Progress Note: A&P Assessment and Plan (1) Urinary tract infection: Code(s): N39.0 - Urinary tract infection, site not specified Status: Acute Assessment and Plan: patient presented to the emergency department with complaints of body aches, fever, chills, dysuria. UA showed trace leukocytes with greater than 75 wbc's but many epi cells noted. Patient was started on IV cefepime 1 g Q 24 hours due to prior urine culture results, on 08/09/22. Urine and blood cultures show extensive multi-drug resistant ESBL e.coli. Cefepime stopped 08/11 and Ertapenem HD dosed started with first dose given 08/11/22. Continue for total 14 days course for bacteremia. (2) Pyelonephritis of transplanted kidney: Code(s): T86.19 - Other complication of kidney transplant; N12 - Tubulo-interstitial nephritis, not specified as acute or chronic Status: Acute Assessment and Plan: 08/09/2022 CT abdomen and pelvis shows perinephric stranding surrounding the left pelvic transplant kidney suggesting pyelonephritis. Patient presented with systemic symptoms of infection. WBC 2.9, she is not currently on any immunosuppressants. Continue management as above She sees Dr Reva Edmond, transplant blood bank assistant, who prescribes Belatacept monthly. Her spouse will attempt to send a [employer] message to this provider regarding holding this immunosuppressant medication given her current infection. Will plan to call the office Monday, if we have not heard back regarding holding her infusion. (3) Bacteremia due to Gram-negative bacteria: Code(s): R78.81 - Bacteremia Status: Acute Assessment and Plan: blood cultures drawn on 08/09 show MDR ESBL e.coli. Continue antibiotics as above x14 days from negative blood cultures. (4) End-stage renal disease on hemodialysis: Code(s): N18.6 - End stage renal disease; Z99.2 - Dependence on renal dialysis Status: Chronic Assessment and Plan: patient is currently receiving hemodialysis Mondays, Wednesdays, Monday schedule since transplanted kidney rejection. She is a patient of Dr. Hope. Nephrology consulted and appreciate recommendations and management of hemodialysis. Patient is currently receiving Epogen IV during dialysis Monitor daily weights, Trend renal profile She is to be switched to a Monday, Monday, Monday schedule next week at her outpatient dialysis facility due to the holiday. She will likely need dialysis on Monday in preparation of this. Will confer with Nephrology. (5) Chronic anemia: Code(s): D64.9 - Anemia, unspecified Status: Chronic Assessment and Plan: Patient admitted with hemoglobin 7.6, hematocrit 25%. Prior CBC records from 2019. Patient is on hemodialysis for end-stage renal disease. She is receiving Epogen IV during HD 08/11/2022 hemoglobin 6.7 /hematocrit 21.3%. Transfuse 1 unit PRBC and repeat H&H 2 hours following transfusion. Trend H&H and transfuse if hemoglobin less than 7 No signs and symptoms of acute bleeding. stool occult negative. 08/12/22 Hgb 8.2 and stable. (6) Thrombocytopenia: Code(s): D69.6 - Thrombocytopenia, unspecified Status: Chronic Assessment and Plan: Chronic, stable, no acute bleeding. platelet 132 and will start heparin SQ for DVT prophylaxis. Monitor closely. 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
[2022-08-12 17:37] LABS: Glucose Point of Care 221 mg/dl (65-105)
[2022-08-12] MEDS: CINACALCET 30 MG TABLET PO (17:55)
[2022-08-12] MEDS: ERTAPENEM SODIUM 0.5 GM in SODIUM CHLORIDE 0.9% IV 50 ML IVPB (17:59)
[2022-08-12 21:29] LABS: Glucose Point of Care 162 mg/dl (65-105)
[2022-08-12] MEDS: HEPARIN SODIUM 5,000 UNITS/ML VIAL 5000 UNITS SUB-Q (21:42)
[2022-08-12] MEDS: diphenhydrAMINE HCl CAP 25 MG CAPSULE 50 MG PO (21:42)
[2022-08-12] MEDS: NIFEdipine 30 MG TAB.ER.24 PO (21:43)
[2022-08-12] MEDS: CYCLOBENZAPRINE HCL 5 MG TABLET PO (21:43)
[2022-08-12] MEDS: MELATONIN 5 MG TABLET 10 MG PO (21:43)
[2022-08-13] VITALS (7 sets, daily range): BP systolic 103–141; BP diastolic 55–81; PULSE 75–94; RESP 16–20; TEMP 36.2–37.9; O2SAT 91–96
[2022-08-13 05:53] LABS: Anion Gap 10 mmol/L (8-16); Blood Urea Nitrogen 19 mg/dL (7-17); Calcium 7.5 mg/dL (8.4-10.2); Carbon Dioxide 26 mmol/L (22-30); Chloride 97 mmol/L (98-107); Estimated CRCL calculation 14 ml/min; Estimated Glomerular Filt Rate 11; Glucose 128 mg/dL (65-110); Potassium 3.4 mmol/L (3.4-5.0); Sodium 133 mmol/L (137-145)
[2022-08-13] MEDS: ACETAMINOPHEN 325 MG TABLET 650 MG PO (06:21)
[2022-08-13] MEDS: CENTRAL LINE FLUSH 10 ML IV PUSH ×3 (06:21→21:05)
[2022-08-13 07:16] LABS: Basophils Percent Auto 1.9 % (0.2-1.2); Eosinophils Absolute Auto 0.1 K/mm3 (0-0.3); Eosinophils Percent Auto 4.5 % (0-4.4); Hematocrit 27.7 % (37.0-47.0); Hemoglobin 8.6 g/dL (12.0-15.0); Immature Granulocyte Absolute 0.24 K/mm3 (0.00-0.031); Immature Granulocyte Percent A 15.3 % (0-0.5); Lymphocytes Absolute Auto 0.36 K/mm3 (0.9-3.2); Lymphocytes Percent Auto 22.9 % (18.3-44.2); Mean Corpuscular Hemoglobin 28.8 pg (26-34); Mean Corpuscular Volume 92.6 fl (80-100); Monocytes Absolute Auto 0.4 K/mm3 (0.1-0.6); Monocytes Percent Auto 27.4 % (2.6-8.5); Neutrophils Absolute Auto 0.4 K/mm3 (1.3-6.7); Nucleated Red Blood Cells Perc 1.3 % (0.0-0.2); Platelet Count Result 142 k/mm3 (150-375); Red Blood Count 2.99 M/mm3 (4.2-5.4); Red Cell Distribution Width 16.7 % (11.5-14.5)
[2022-08-13 07:22] LABS: White Blood Count 1.6 K/mm3 (4.5-10.0)
[2022-08-13 07:23] LABS: Platelet Estimate Adequate (Adequate)
[2022-08-13 07:24] LABS: Anisocytosis 2+ (NORMAL); Hypochromasia 1+ (NORMAL); Ovalocytes 1+ (NORMAL); Poikilocytosis 1+ (NORMAL); Schistocytes None Seen (NORMAL); Target Cells 1+ (NORMAL); Tear Drop Cells 1+ (NORMAL)
[2022-08-13 08:56] LABS: Glucose Point of Care 126 mg/dl (65-105)
--- NOTE | 2022-08-13 09:12 | PM.IMPN ---
Progress Note: A&P Assessment and Plan (1) Urinary tract infection: Qualifiers: Urinary tract infection type: acute pyelonephritis Qualified Code(s): N10 - Acute pyelonephritis Code(s): N39.0 - Urinary tract infection, site not specified Status: Acute Assessment and Plan: patient presented to the emergency department with complaints of body aches, fever, chills, dysuria. UA showed trace leukocytes with greater than 75 wbc's but many epi cells noted. Patient was started on IV cefepime 1 g Q 24 hours due to prior urine culture results, on 08/09/22. Urine and blood cultures show extensive multi-drug resistant ESBL e.coli. Cefepime stopped 08/11 and Ertapenem HD dosed started with first dose given 08/11/22. Continue for total 14 days course for bacteremia. 08/13/22 patient with low-grade temp. Repeat UA with trace leukocytes, 21-30 WBC, no nitrates, moderate epi cells. Abx expanded to Primaxin renally dosed for bacteremia. (2) Pyelonephritis of transplanted kidney: Code(s): T86.19 - Other complication of kidney transplant; N12 - Tubulo-interstitial nephritis, not specified as acute or chronic Status: Acute Assessment and Plan: 08/09/2022 CT abdomen and pelvis shows perinephric stranding surrounding the left pelvic transplant kidney suggesting pyelonephritis. Patient presented with systemic symptoms of infection. WBC 2.9, she is not currently on any immunosuppressants. Continue management as above She sees Dr Reva Edmond, transplant senior audit manager, who prescribes Belatacept monthly. Her spouse will attempt to send a [employer] message to this provider regarding holding this immunosuppressant medication given her current infection. Will plan to call the office Monday, if we have not heard back regarding holding her infusion. 08/13/22 patient is neutropenic with wBC 1.6 and ANC 0.4. patient already immunosuppressed. (3) Bacteremia due to Gram-negative bacteria: Code(s): R78.81 - Bacteremia Status: Acute Assessment and Plan: blood cultures drawn on 08/09 show MDR ESBL e.coli. Continue antibiotics as above x14 days from negative blood cultures. repeat blood cultures 08/13/22 drawn and pending. If blood cultures persistently positive will need to evaluate vascath and port removal. (4) Leukopenia: Qualifiers: Leukopenia type: neutropenia Neutropenia type: due to infection Qualified Code(s): D70.3 - Neutropenia due to infection Code(s): D72.819 - Decreased white blood cell count, unspecified Status: Acute Assessment and Plan: WBC 1.6 on 08/13/22, ANC 0.4. Temp 100.2F overnight, all other vitals stable. No new symptoms. Repeat CXR pending UA as above, but improved from admission. Place in reverse (protective) isolation. Monitor vitals. Antibiotics changed as above. (5) End-stage renal disease on hemodialysis: Code(s): N18.6 - End stage renal disease; Z99.2 - Dependence on renal dialysis Status: Chronic Assessment and Plan: patient is currently receiving hemodialysis Mondays, Wednesdays, Monday schedule since transplanted kidney rejection. She is a patient of Dr. Hope. Nephrology consulted and appreciate recommendations and management of hemodialysis. Patient is currently receiving Epogen IV during dialysis Monitor daily weights, Trend renal profile She is to be switched to a Monday, Monday, Monday schedule next week at her outpatient dialysis facility due to the holiday. She will likely need dialysis on Monday in preparation of this. Will confer with Nephrology who is managing. (6) Chronic anemia: Code(s): D64.9 - Anemia, unspecified Status: Chronic Assessment and Plan: Patient admitted with hemoglobin 7.6, hematocrit 25%. Prior CBC records from 2019. Patient is on hemodialysis for end-stage renal disease. She is receiving Epogen IV during HD 08/11/2022 hemoglobin 6.
[2022-08-13] MEDS: CINACALCET 30 MG TABLET PO ×2 (10:12→17:47)
[2022-08-13] MEDS: BUMETANIDE 1 MG TABLET 2 MG PO (10:12)
[2022-08-13] MEDS: ASPIRIN 81 MG ENTERIC TABLET PO (10:12)
[2022-08-13] MEDS: calcitrioL 0.25 MCG CAPSULE PO (10:12)
[2022-08-13] MEDS: CHOLECALCIFEROL 1,000 UNITS TABLET 4000 UNITS PO (10:12)
[2022-08-13] MEDS: allopurinoL 150 MG TABLET PO (10:12)
[2022-08-13] MEDS: METOPROLOL SUCCINATE EXT REL 25 MG TABCR 75 MG PO (10:13)
[2022-08-13] MEDS: HEPARIN SODIUM 5,000 UNITS/ML VIAL 5000 UNITS SUB-Q ×2 (10:13→21:05)
[2022-08-13] MEDS: DOXAZOSIN MESYLATE 1 MG TABLET PO (10:13)
[2022-08-13] MEDS: ROSUVASTATIN 10 MG TABLET 20 MG PO (10:16)
[2022-08-13] MEDS: NIFEdipine 30 MG TAB.ER.24 PO ×2 (10:16→21:02)
[2022-08-13] MEDS: PANTOPRAZOLE 40 MG TABLET PO (10:16)
[2022-08-13 11:32] LABS: Influenza A QL RT-PCR Negative (Negative); Influenza B QL RT-PCR Negative (Negative); SARS-CoV-2 RNA PCR Negative
--- NOTE | 2022-08-13 11:36 | P.PNNP_ITS ---
Progress Note: A&P Assessment and Plan (1) End stage renal disease: Code(s): N18.6 - End stage renal disease Status: Resolved Assessment and Plan: * HD yesterday and continue M/W/F dialysis schedule while hospitalized * follow electrolytes, volume status, and clearance (2) Bacteremia: Code(s): R78.81 - Bacteremia Status: Resolved Assessment and Plan: * blood and urine culture with ESBL E.coli * on IV antibiotics * follow repeat blood cultures (pending) * if blood cultures persistently positive, may need to consider tunnelled HD catheter and/or left port removal (3) Urinary tract infection: Code(s): N39.0 - Urinary tract infection, site not specified Status: Acute Assessment and Plan: * as noted by admission UA * urine culture with E.coli * on IV antibiotics (4) Pyelonephritis of transplanted kidney: Code(s): T86.19 - Other complication of kidney transplant; N12 - Tubulo-interstitial nephritis, not specified as acute or chronic Status: Acute Assessment and Plan: * as suggested by admission imaging * culture data (blood and urine) noted - E.coli (ESBL) resulted * continue IV antibiotics (5) Hypertension: Qualifiers: Hypertension type: primary hypertension Qualified Code(s): I10 - Essential (primary) hypertension Code(s): I10 - Essential (primary) hypertension Status: Chronic Assessment and Plan: * reasonable control at this time * follow trend of hemodynamics (6) Chronic anemia: Code(s): D64.9 - Anemia, unspecified Status: Chronic Assessment and Plan: * due to ESRD * Epogen with HD * however, acute illnesss/infection may have led to epogen resistance * PRBC transfusion per protocol * follow trend of H/H (7) Leukopenia: Code(s): D72.819 - Decreased white blood cell count, unspecified Status: Acute Assessment and Plan: * as noted on CBC * due to infection/bacteremia? * follow trend (8) Type 2 diabetes mellitus: Qualifiers: Chronic kidney disease stage: on chronic dialysis Diabetes mellitus complication detail: with chronic kidney disease Diabetes mellitus complication status: with kidney complications Diabetes mellitus residential insulin use: without residential use Qualified Code(s): E11.22 - Type 2 diabetes mellitus with diabetic chronic kidney disease; N18.6 - End stage renal disease; Z99.2 - Dependence on renal dialysis Code(s): E11.9 - Type 2 diabetes mellitus without complications Status: Chronic Assessment and Plan: * follow accuchecks * glycemic control Will continue to follow. Subjective Date/time seen: 08/13/22 11:36 Tolerated hemodialysis treatment yesterday without any issues or problems; no acute issues overnight or earlier this morning; still has cough but it does not appear to be any worse; no apparent distrtess voiced at the time of my visit. Exam Narrative: General: WD/WN female in NAD Heart: normal S1 and S2; no rub Lungs: clear to auscultation Abdomen: soft, nontender, nondistended, positive bowel sounds Extremities: no cyanosis or clubbing; no edema Skin: warm and intact Objective Data Vital Signs Vital Signs: Vital Signs Temp Pulse Resp BP Pulse Ox O2 Del Method 08/13/22 08:00 Room Air 08/13/22 09:30
--- NOTE | 2022-08-13 11:36 | PM.PNNEP ---
Progress Note: A&P Assessment and Plan (1) End stage renal disease: Code(s): N18.6 - End stage renal disease Status: Resolved Assessment and Plan: HD yesterday and continue M/W/F dialysis schedule while hospitalized follow electrolytes, volume status, and clearance (2) Bacteremia: Code(s): R78.81 - Bacteremia Status: Resolved Assessment and Plan: blood and urine culture with ESBL E.coli on IV antibiotics follow repeat blood cultures (pending) if blood cultures persistently positive, may need to consider tunnelled HD catheter and/or left port removal (3) Urinary tract infection: Code(s): N39.0 - Urinary tract infection, site not specified Status: Acute Assessment and Plan: as noted by admission UA urine culture with E.coli on IV antibiotics (4) Pyelonephritis of transplanted kidney: Code(s): T86.19 - Other complication of kidney transplant; N12 - Tubulo-interstitial nephritis, not specified as acute or chronic Status: Acute Assessment and Plan: as suggested by admission imaging culture data (blood and urine) noted - E.coli (ESBL) resulted continue IV antibiotics (5) Hypertension: Qualifiers: Hypertension type: primary hypertension Qualified Code(s): I10 - Essential (primary) hypertension Code(s): I10 - Essential (primary) hypertension Status: Chronic Assessment and Plan: reasonable control at this time follow trend of hemodynamics (6) Chronic anemia: Code(s): D64.9 - Anemia, unspecified Status: Chronic Assessment and Plan: due to ESRD Epogen with HD however, acute illnesss/infection may have led to epogen resistance PRBC transfusion per protocol follow trend of H/H (7) Leukopenia: Code(s): D72.819 - Decreased white blood cell count, unspecified Status: Acute Assessment and Plan: as noted on CBC due to infection/bacteremia? follow trend (8) Type 2 diabetes mellitus: Qualifiers: Chronic kidney disease stage: on chronic dialysis Diabetes mellitus complication detail: with chronic kidney disease Diabetes mellitus complication status: with kidney complications Diabetes mellitus alf insulin use: without computer terminal operator use Qualified Code(s): E11.22 - Type 2 diabetes mellitus with diabetic chronic kidney disease; N18.6 - End stage renal disease; Z99.2 - Dependence on renal dialysis Code(s): E11.9 - Type 2 diabetes mellitus without complications Status: Chronic Assessment and Plan: follow accuchecks glycemic control Will continue to follow. Subjective Date/time seen: 08/13/22 11:36 Tolerated hemodialysis treatment yesterday without any issues or problems; no acute issues overnight or earlier this morning; still has cough but it does not appear to be any worse; no apparent distrtess voiced at the time of my visit. Exam Narrative: General: WD/WN female in NAD Heart: normal S1 and S2; no rub Lungs: clear to auscultation Abdomen: soft, nontender, nondistended, positive bowel sounds Extremities: no cyanosis or clubbing; no edema Skin: warm and intact Objective Data Vital Signs Vital Signs: Vital Signs Temp Pulse Resp BP Pulse Ox O2 Del Method 08/13/22 08:00 Room Air 08/13/22 09:30 36.6 C 08/13/22 10:20 128/77 08/13/22 10:13 84 08/13/22 06:21 37.9 C H 08/13/22 05:22 37.7 C H 94 18 126/74 91 08/12/22 19:47 36.6 C 98 18 114/66 91 08/12/22 14:00 37.7 C H 104 H 18 114/72 96 Intake/Output Intake/Output: Intake & Output 08/10/22 08/11/22 08/12/22 08/13/22 23:59 23:59 23:59 23:59 Intake Total 1690 1970 780 200 Output Total 3700 150 3100 200 -2009 1820 -2320 0 Meds/Results Medications: Active Medications Generic Name Dose Route Start Last Admin Trade Name Freq PRN Reason Stop Dose Admin Elias
[2022-08-13 12:06] LABS: Appearance Urine Clear (Clear); Bilirubin Urine Negative (Negative); Blood Urine 1+ (Negative); Color Urine Yellow (Yellow); Glucose Urine UA Trace mg/dL (Negative); Ketones Urine Negative (Negative); Leukocyte Esterase Ur Trace LEU/UL (Negative); Nitrate Urine Negative (Negative); Protein Urine 3+ mg/dL (Negative); Urobilinogen Urine 0.2 mg/dL (<2.0)
[2022-08-13 12:13] LABS: Bacteria Urine Trace /hpf; Mucus Urine Rare /lpf; RBC Urine 0-2 /hpf (0-2); Squamous Epithelial Cell Urine Moderate /hpf (Few); WBC Urine 21-30 /hpf
[2022-08-13 12:18] LABS: Add Urine Microscopic? YES
[2022-08-13 12:58] LABS: Glucose Point of Care 170 mg/dl (65-105)
[2022-08-13 17:49] LABS: Glucose Point of Care 165 mg/dl (65-105)
[2022-08-13] MEDS: diphenhydrAMINE HCl CAP 25 MG CAPSULE 50 MG PO (21:01)
[2022-08-13] MEDS: CYCLOBENZAPRINE HCL 5 MG TABLET PO (21:01)
[2022-08-13] MEDS: MELATONIN 5 MG TABLET 10 MG PO (21:10)
[2022-08-13 21:25] LABS: Glucose Point of Care 201 mg/dl (65-105)
[2022-08-14 06:00] VITALS: BP 134/71; PULSE 76; RESP 18; TEMP 36.7; O2SAT 94
[2022-08-14] MEDS: CENTRAL LINE FLUSH 10 ML IV PUSH ×3 (06:02→20:35)
[2022-08-14] MEDS: BUMETANIDE 1 MG TABLET 2 MG PO (08:48)
[2022-08-14] MEDS: allopurinoL 150 MG TABLET PO (08:48)
[2022-08-14] MEDS: calcitrioL 0.25 MCG CAPSULE PO (08:48)
[2022-08-14] MEDS: ASPIRIN 81 MG ENTERIC TABLET PO (08:48)
[2022-08-14] MEDS: CINACALCET 30 MG TABLET PO ×2 (08:48→17:06)
[2022-08-14 08:49] VITALS: BP 123/78; PULSE 71
[2022-08-14] MEDS: CHOLECALCIFEROL 1,000 UNITS TABLET 4000 UNITS PO (08:49)
[2022-08-14] MEDS: DOXAZOSIN MESYLATE 1 MG TABLET PO (08:49)
[2022-08-14] MEDS: NIFEdipine 30 MG TAB.ER.24 PO ×2 (08:49→20:32)
[2022-08-14] MEDS: HEPARIN SODIUM 5,000 UNITS/ML VIAL 5000 UNITS SUB-Q ×2 (08:49→20:33)
[2022-08-14] MEDS: METOPROLOL SUCCINATE EXT REL 25 MG TABCR 75 MG PO (08:49)
[2022-08-14] MEDS: PANTOPRAZOLE 40 MG TABLET PO (08:50)
[2022-08-14] MEDS: ROSUVASTATIN 10 MG TABLET 20 MG PO (08:50)
[2022-08-14 09:04] LABS: Glucose Point of Care 121 mg/dl (65-105)
--- NOTE | 2022-08-14 10:54 | P.PNNP_ITS ---
Progress Note: A&P Assessment and Plan (1) End stage renal disease: Code(s): N18.6 - End stage renal disease Status: Resolved Assessment and Plan: * HD tomorrow and continue M/W/F dialysis schedule while hospitalized * follow electrolytes, volume status, and clearance (2) Bacteremia: Code(s): R78.81 - Bacteremia Status: Resolved Assessment and Plan: * blood and urine culture with ESBL E.coli * on IV antibiotics * follow repeat blood cultures (negative to date) (3) Urinary tract infection: Qualifiers: Urinary tract infection type: acute pyelonephritis Qualified Code(s): N10 - Acute pyelonephritis Code(s): N39.0 - Urinary tract infection, site not specified Status: Acute Assessment and Plan: * as noted by admission UA * urine culture with E.coli * on IV antibiotics (4) Pyelonephritis of transplanted kidney: Code(s): T86.19 - Other complication of kidney transplant; N12 - Tubulo-interstitial nephritis, not specified as acute or chronic Status: Acute Assessment and Plan: * as suggested by admission imaging * culture data (blood and urine) noted - E.coli (ESBL) resulted * continue IV antibiotics (5) Hypertension: Qualifiers: Hypertension type: primary hypertension Qualified Code(s): I10 - Essential (primary) hypertension Code(s): I10 - Essential (primary) hypertension Status: Chronic Assessment and Plan: * reasonable control at this time * follow trend of hemodynamics (6) Chronic anemia: Code(s): D64.9 - Anemia, unspecified Status: Chronic Assessment and Plan: * due to ESRD * Epogen with HD * however, acute illnesss/infection may have led to epogen resistance * PRBC transfusion per protocol * follow trend of H/H (7) Leukopenia: Qualifiers: Leukopenia type: neutropenia Neutropenia type: due to infection Qualified Code(s): D70.3 - Neutropenia due to infection Code(s): D72.819 - Decreased white blood cell count, unspecified Status: Acute Assessment and Plan: * as noted on CBC * due to infection/bacteremia? * follow trend (8) Type 2 diabetes mellitus: Qualifiers: Chronic kidney disease stage: on chronic dialysis Diabetes mellitus complication detail: with chronic kidney disease Diabetes mellitus complication status: with kidney complications Diabetes mellitus market developer insulin use: without prison use Qualified Code(s): E11.22 - Type 2 diabetes mellitus with diabetic chronic kidney disease; N18.6 - End stage renal disease; Z99.2 - Dependence on renal dialysis Code(s): E11.9 - Type 2 diabetes mellitus without complications Status: Chronic Assessment and Plan: * follow accuchecks * glycemic control Assuming blood cultures remain negative and outpatient IV antibiotics can be arranged (she already has a port; her dialysis unit does not carry any effective antibiotics based on sensitivities), would not be opposed to discharge after dialysis treatment on Monday assuming she is otherwise medically stable. Will continue to follow. Subjective Date/time seen: 08/14/22 10:54 No new issues or problems to report at this time; remains hemodynamically stable; no other acute issues/events overnight or earlier this AM to report; asking about when she can go home. Exam Narrative: General: WD/WN female in NAD Heart: normal S1 and S2; no rub Lungs: clear to auscultat
--- NOTE | 2022-08-14 10:54 | PM.PNNEP ---
Progress Note: A&P Assessment and Plan (1) End stage renal disease: Code(s): N18.6 - End stage renal disease Status: Resolved Assessment and Plan: HD tomorrow and continue M/W/F dialysis schedule while hospitalized follow electrolytes, volume status, and clearance (2) Bacteremia: Code(s): R78.81 - Bacteremia Status: Resolved Assessment and Plan: blood and urine culture with ESBL E.coli on IV antibiotics follow repeat blood cultures (negative to date) (3) Urinary tract infection: Qualifiers: Urinary tract infection type: acute pyelonephritis Qualified Code(s): N10 - Acute pyelonephritis Code(s): N39.0 - Urinary tract infection, site not specified Status: Acute Assessment and Plan: as noted by admission UA urine culture with E.coli on IV antibiotics (4) Pyelonephritis of transplanted kidney: Code(s): T86.19 - Other complication of kidney transplant; N12 - Tubulo-interstitial nephritis, not specified as acute or chronic Status: Acute Assessment and Plan: as suggested by admission imaging culture data (blood and urine) noted - E.coli (ESBL) resulted continue IV antibiotics (5) Hypertension: Qualifiers: Hypertension type: primary hypertension Qualified Code(s): I10 - Essential (primary) hypertension Code(s): I10 - Essential (primary) hypertension Status: Chronic Assessment and Plan: reasonable control at this time follow trend of hemodynamics (6) Chronic anemia: Code(s): D64.9 - Anemia, unspecified Status: Chronic Assessment and Plan: due to ESRD Epogen with HD however, acute illnesss/infection may have led to epogen resistance PRBC transfusion per protocol follow trend of H/H (7) Leukopenia: Qualifiers: Leukopenia type: neutropenia Neutropenia type: due to infection Qualified Code(s): D70.3 - Neutropenia due to infection Code(s): D72.819 - Decreased white blood cell count, unspecified Status: Acute Assessment and Plan: as noted on CBC due to infection/bacteremia? follow trend (8) Type 2 diabetes mellitus: Qualifiers: Chronic kidney disease stage: on chronic dialysis Diabetes mellitus complication detail: with chronic kidney disease Diabetes mellitus complication status: with kidney complications Diabetes mellitus watermelon inspector insulin use: without fdc use Qualified Code(s): E11.22 - Type 2 diabetes mellitus with diabetic chronic kidney disease; N18.6 - End stage renal disease; Z99.2 - Dependence on renal dialysis Code(s): E11.9 - Type 2 diabetes mellitus without complications Status: Chronic Assessment and Plan: follow accuchecks glycemic control Assuming blood cultures remain negative and outpatient IV antibiotics can be arranged (she already has a port; her dialysis unit does not carry any effective antibiotics based on sensitivities), would not be opposed to discharge after dialysis treatment on Monday assuming she is otherwise medically stable. Will continue to follow. Subjective Date/time seen: 08/14/22 10:54 No new issues or problems to report at this time; remains hemodynamically stable; no other acute issues/events overnight or earlier this AM to report; asking about when she can go home. Exam Narrative: General: WD/WN female in NAD Heart: normal S1 and S2; no rub Lungs: clear to auscultation Abdomen: soft, nontender, nondistended, positive bowel sounds Extremities: no cyanosis or clubbing; no edema Skin: no rash Objective Data Vital Signs Vital Signs: Vital Signs Temp Pulse Resp BP Pulse Ox 08/14/22 08:49 123/78 08/14/22 08:49 71 08/14/22 06:00 36.7 C 76 18 134/71 94 08/13/22 21:18 37.1 C 85 20 141/81 H 96 08/13/22 14:00 36.2 C L 75 16 103/55 L 96 Intake/Output Intake/Output: Intake & O
[2022-08-14 11:19] LABS: Basophils Percent Auto 1.7 % (0.2-1.2); Eosinophils Absolute Auto 0.1 K/mm3 (0-0.3); Eosinophils Percent Auto 5.6 % (0-4.4); Hematocrit 26.6 % (37.0-47.0); Hemoglobin 8.4 g/dL (12.0-15.0); Immature Granulocyte Absolute 0.14 K/mm3 (0.00-0.031); Immature Granulocyte Percent A 7.9 % (0-0.5); Lymphocytes Absolute Auto 0.44 K/mm3 (0.9-3.2); Lymphocytes Percent Auto 24.9 % (18.3-44.2); Mean Corpuscular HGB Conc 31.6 g/dl (32-36); Mean Corpuscular Hemoglobin 28.6 pg (26-34); Mean Corpuscular Volume 90.5 fl (80-100); Mean Platelet Volume 9.8 fl (7.4-10.4); Monocytes Absolute Auto 0.4 K/mm3 (0.1-0.6); Monocytes Percent Auto 24.3 % (2.6-8.5); Neutrophils Absolute Auto 0.6 K/mm3 (1.3-6.7); Neutrophils Percent Auto 35.6 % (45.5-73.1); Platelet Count Result 153 k/mm3 (150-375); Red Blood Count 2.94 M/mm3 (4.2-5.4); Red Cell Distribution Width 16.5 % (11.5-14.5)
[2022-08-14 11:30] LABS: Alanine Aminotransferase 52 U/L (6-35); Albumin Level 2.8 g/dL (3.5-5.1); Alkaline Phosphatase 150 U/L (38-126); Anion Gap 12 mmol/L (8-16); Aspartate Amino Transferase 72 U/L (14-36); Bilirubin,Total 0.3 mg/dL (0.2-1.3); Blood Urea Nitrogen 27 mg/dL (7-17); Calcium 7.5 mg/dL (8.4-10.2); Carbon Dioxide 25 mmol/L (22-30); Chloride 96 mmol/L (98-107); Estimated CRCL calculation 9 ml/min; Estimated Glomerular Filt Rate 7; Glucose 139 mg/dL (65-110); Potassium 3.4 mmol/L (3.4-5.0); Sodium 133 mmol/L (137-145)
[2022-08-14 11:37] LABS: White Blood Count 1.8 K/mm3 (4.5-10.0)
[2022-08-14 11:40] LABS: Anisocytosis 1+ (NORMAL); Hypochromasia 1+ (NORMAL); Ovalocytes 1+ (NORMAL); Schistocytes None Seen (NORMAL); Tear Drop Cells 1+ (NORMAL)
--- NOTE | 2022-08-14 11:57 | PM.IMPN ---
Progress Note: A&P Assessment and Plan (1) Urinary tract infection: Qualifiers: Urinary tract infection type: acute pyelonephritis Qualified Code(s): N10 - Acute pyelonephritis Code(s): N39.0 - Urinary tract infection, site not specified Status: Acute Assessment and Plan: patient presented to the emergency department with complaints of body aches, fever, chills, dysuria. UA showed trace leukocytes with greater than 75 wbc's but many epi cells noted. Patient was started on IV cefepime 1 g Q 24 hours due to prior urine culture results, on 08/09/22. Urine and blood cultures show extensive multi-drug resistant ESBL e.coli. Cefepime stopped 08/11 and Ertapenem HD dosed started with first dose given 08/11/22. Continue for total 14 days course for bacteremia. 08/13/22 patient with low-grade temp. Repeat UA with trace leukocytes, 21-30 WBC, no nitrates, moderate epi cells. Abx expanded to Primaxin renally dosed for bacteremia. 08/13/22 Repeat urine culture pending. Day 2 Primaxin IV, she received 48 hours of Ertapenem prior to this. If repeat blood cultures and urine cultures are negative. We can likely transition back to Ertapenem and plan to complete 10 more days of carbapenem therapy. (2) Pyelonephritis of transplanted kidney: Code(s): T86.19 - Other complication of kidney transplant; N12 - Tubulo-interstitial nephritis, not specified as acute or chronic Status: Acute Assessment and Plan: 08/09/2022 CT abdomen and pelvis shows perinephric stranding surrounding the left pelvic transplant kidney suggesting pyelonephritis. Patient presented with systemic symptoms of infection. WBC 2.9, she is not currently on any immunosuppressants. Continue management as above She sees Dr Reva Edmond, transplant orange picker, who prescribes Belatacept monthly. Her spouse will attempt to send a [employer] message to this provider regarding holding this immunosuppressant medication given her current infection. Will plan to call the office Monday, if we have not heard back regarding holding her infusion. 08/13/22 patient is neutropenic with wBC 1.6 and ANC 0.4. patient already immunosuppressed. (3) Bacteremia due to Gram-negative bacteria: Code(s): R78.81 - Bacteremia Status: Acute Assessment and Plan: blood cultures drawn on 08/09 show MDR ESBL e.coli. Continue antibiotics as above x14 days from negative blood cultures. repeat blood cultures 08/13/22 drawn and pending. If blood cultures persistently positive will need to evaluate vascath and port removal. 08/13/22 Blood cultures pending (4) Leukopenia: Qualifiers: Leukopenia type: neutropenia Neutropenia type: due to infection Qualified Code(s): D70.3 - Neutropenia due to infection Code(s): D72.819 - Decreased white blood cell count, unspecified Status: Acute Assessment and Plan: WBC 1.6 on 08/13/22, ANC 0.4. Temp 100.2F overnight, all other vitals stable. No new symptoms. Repeat CXR pending UA as above, but improved from admission. Place in reverse (protective) isolation. Monitor vitals. Antibiotics changed as above. 08/14/22 WBC 1.8, ANC 0.6. Afebrile x 24 hours. (5) End-stage renal disease on hemodialysis: Code(s): N18.6 - End stage renal disease; Z99.2 - Dependence on renal dialysis Status: Chronic Assessment and Plan: patient is currently receiving hemodialysis Mondays, Wednesdays, Monday schedule since transplanted kidney rejection. She is a patient of Dr. Hope. Nephrology consulted and appreciate recommendations and management of hemodialysis. Patient is currently receiving Epogen IV during dialysis Monitor daily weights, Trend renal profile She is to be switched to a Monday, Monday, Monday schedule next week at her outpatient dialysis facility due to the holiday. Will defer with Nephrology who is managing. (6) Chronic anemia: Code(s):
[2022-08-14 14:00] VITALS: BP 119/75; PULSE 72; RESP 18; TEMP 36.4; O2SAT 95
[2022-08-14 17:07] VITALS: BP 135/67; PULSE 68
[2022-08-14] MEDS: DOXAZOSIN MESYLATE 2 MG TABLET PO (17:07)
[2022-08-14 17:52] LABS: Glucose Point of Care 146 mg/dl (65-105)
[2022-08-14 20:00] VITALS: PULSE 72; RESP 18; O2SAT 97
[2022-08-14 20:18] VITALS: BP 146/79; PULSE 72; RESP 18; TEMP 36.5; O2SAT 97
[2022-08-14] MEDS: diphenhydrAMINE HCl CAP 25 MG CAPSULE 50 MG PO (20:32)
[2022-08-14] MEDS: CYCLOBENZAPRINE HCL 5 MG TABLET PO (20:32)
[2022-08-14] MEDS: MELATONIN 5 MG TABLET 10 MG PO (20:32)
[2022-08-14 21:06] LABS: Glucose Point of Care 173 mg/dl (65-105)
[2022-08-15] VITALS (20 sets, daily range): BP systolic 111–177; BP diastolic 57–91; PULSE 70–107; RESP 16–18; TEMP 36–36.8; O2SAT 94–100
[2022-08-15] MEDS: CENTRAL LINE FLUSH 10 ML IV PUSH ×3 (05:43→20:28)
[2022-08-15 06:20] LABS: Basophils Percent Auto 1.9 % (0.2-1.2); Eosinophils Absolute Auto 0.1 K/mm3 (0-0.3); Eosinophils Percent Auto 4.5 % (0-4.4); Hematocrit 26.4 % (37.0-47.0); Hemoglobin 8.3 g/dL (12.0-15.0); Immature Granulocyte Absolute 0.07 K/mm3 (0.00-0.031); Immature Granulocyte Percent A 4.5 % (0-0.5); Lymphocytes Absolute Auto 0.47 K/mm3 (0.9-3.2); Lymphocytes Percent Auto 30.3 % (18.3-44.2); Mean Corpuscular HGB Conc 31.4 g/dl (32-36); Mean Corpuscular Hemoglobin 28.6 pg (26-34); Monocytes Absolute Auto 0.4 K/mm3 (0.1-0.6); Monocytes Percent Auto 24.5 % (2.6-8.5); Neutrophils Absolute Auto 0.5 K/mm3 (1.3-6.7); Neutrophils Percent Auto 34.3 % (45.5-73.1); Platelet Count Result 165 k/mm3 (150-375); Red Cell Distribution Width 16.4 % (11.5-14.5)
[2022-08-15 06:42] LABS: Anion Gap 12 mmol/L (8-16); Blood Urea Nitrogen 32 mg/dL (7-17); Calcium 7.3 mg/dL (8.4-10.2); Carbon Dioxide 21 mmol/L (22-30); Chloride 101 mmol/L (98-107); Estimated CRCL calculation 8 ml/min; Estimated Glomerular Filt Rate 6; Glucose 122 mg/dL (65-110); Magnesium 1.6 mg/dL (1.6-2.3); Potassium 3.6 mmol/L (3.4-5.0); Sodium 134 mmol/L (137-145)
[2022-08-15 06:50] LABS: White Blood Count 1.6 K/mm3 (4.5-10.0)
[2022-08-15 06:53] LABS: Anisocytosis 1+ (NORMAL); Ovalocytes 1+ (NORMAL); Platelet Estimate Adequate (Adequate); Schistocytes None Seen (NORMAL)
[2022-08-15 08:11] LABS: Glucose Point of Care 139 mg/dl (65-105)
[2022-08-15] MEDS: SODIUM CHLORIDE 0.9% IV 1,000 ML 999 ML IV CONT ×2 (09:55→09:56)
[2022-08-15] MEDS: EPOETIN ALFA-EPBX 10,000 UNITS/ML VIAL 10000 UNITS IV PUSH (09:55)
--- NOTE | 2022-08-15 10:30 | PC.NURSE ---
Patient off of unit to dialysis
--- NOTE | 2022-08-15 12:10 | P.PNNP_ITS ---
Progress Note: A&P Assessment and Plan (1) End stage renal disease: Code(s): N18.6 - End stage renal disease Status: Resolved Assessment and Plan: * HD today and again tomorrow due to holiday schedule * follow electrolytes, volume status, and clearance (2) Bacteremia: Code(s): R78.81 - Bacteremia Status: Resolved Assessment and Plan: * blood and urine culture with ESBL E.coli * on IV antibiotics * repeat blood cultures (negative to date) (3) Urinary tract infection: Qualifiers: Urinary tract infection type: acute pyelonephritis Qualified Code(s): N10 - Acute pyelonephritis Code(s): N39.0 - Urinary tract infection, site not specified Status: Acute Assessment and Plan: * as noted by admission UA * urine culture with E.coli * on IV antibiotics (4) Pyelonephritis of transplanted kidney: Code(s): T86.19 - Other complication of kidney transplant; N12 - Tubulo-interstitial nephritis, not specified as acute or chronic Status: Acute Assessment and Plan: * as suggested by admission imaging * culture data (blood and urine) noted - E.coli (ESBL) resulted * continue IV antibiotics (5) Hypertension: Qualifiers: Hypertension type: primary hypertension Qualified Code(s): I10 - Essential (primary) hypertension Code(s): I10 - Essential (primary) hypertension Status: Chronic Assessment and Plan: * reasonable control at this time * follow trend of hemodynamics (6) Chronic anemia: Code(s): D64.9 - Anemia, unspecified Status: Chronic Assessment and Plan: * due to ESRD * Epogen with HD * however, acute illnesss/infection may have led to epogen resistance * PRBC transfusion per protocol * follow trend of H/H (7) Leukopenia: Qualifiers: Leukopenia type: neutropenia Neutropenia type: due to infection Qualified Code(s): D70.3 - Neutropenia due to infection Code(s): D72.819 - Decreased white blood cell count, unspecified Status: Acute Assessment and Plan: * as noted on CBC * due to infection/bacteremia? * follow trend (8) Type 2 diabetes mellitus: Qualifiers: Diabetes mellitus moth exterminator insulin use: without assisted use Diabetes mellitus complication status: with kidney complications Diabetes mellitus complication detail: with chronic kidney disease Chronic kidney disease stage: on chronic dialysis Qualified Code(s): E11.22 - Type 2 diabetes mellitus with diabetic chronic kidney disease; N18.6 - End stage renal disease; Z99.2 - Dependence on renal dialysis Code(s): E11.9 - Type 2 diabetes mellitus without complications Status: Chronic Assessment and Plan: * follow accuchecks * glycemic control Assuming blood cultures remain negative and outpatient IV antibiotics can be arranged (she already has a port; her dialysis unit does not carry any effective antibiotics based on sensitivities), would not be opposed to discharge after dialysis treatment today or tomorrow assuming she is otherwise medically stable. Will continue to follow. Subjective Date/time seen: 08/15/22 12:10 Tolerating hemodialysis treatment at the time of my visit (seen on HD at 11:50AM); no apparent distress voiced at this time; no acute complaints noted; no other issues/events overnight or earlier this AM. Exam Narrative: General: WD/WN female in NAD Heart: normal S1 and S2; no rub Lungs: clear t
--- NOTE | 2022-08-15 12:10 | PM.PNNEP ---
Progress Note: A&P Assessment and Plan (1) End stage renal disease: Code(s): N18.6 - End stage renal disease Status: Resolved Assessment and Plan: HD today and again tomorrow due to holiday schedule follow electrolytes, volume status, and clearance (2) Bacteremia: Code(s): R78.81 - Bacteremia Status: Resolved Assessment and Plan: blood and urine culture with ESBL E.coli on IV antibiotics repeat blood cultures (negative to date) (3) Urinary tract infection: Qualifiers: Urinary tract infection type: acute pyelonephritis Qualified Code(s): N10 - Acute pyelonephritis Code(s): N39.0 - Urinary tract infection, site not specified Status: Acute Assessment and Plan: as noted by admission UA urine culture with E.coli on IV antibiotics (4) Pyelonephritis of transplanted kidney: Code(s): T86.19 - Other complication of kidney transplant; N12 - Tubulo-interstitial nephritis, not specified as acute or chronic Status: Acute Assessment and Plan: as suggested by admission imaging culture data (blood and urine) noted - E.coli (ESBL) resulted continue IV antibiotics (5) Hypertension: Qualifiers: Hypertension type: primary hypertension Qualified Code(s): I10 - Essential (primary) hypertension Code(s): I10 - Essential (primary) hypertension Status: Chronic Assessment and Plan: reasonable control at this time follow trend of hemodynamics (6) Chronic anemia: Code(s): D64.9 - Anemia, unspecified Status: Chronic Assessment and Plan: due to ESRD Epogen with HD however, acute illnesss/infection may have led to epogen resistance PRBC transfusion per protocol follow trend of H/H (7) Leukopenia: Qualifiers: Leukopenia type: neutropenia Neutropenia type: due to infection Qualified Code(s): D70.3 - Neutropenia due to infection Code(s): D72.819 - Decreased white blood cell count, unspecified Status: Acute Assessment and Plan: as noted on CBC due to infection/bacteremia? follow trend (8) Type 2 diabetes mellitus: Qualifiers: Diabetes mellitus half-way insulin use: without half-way use Diabetes mellitus complication status: with kidney complications Diabetes mellitus complication detail: with chronic kidney disease Chronic kidney disease stage: on chronic dialysis Qualified Code(s): E11.22 - Type 2 diabetes mellitus with diabetic chronic kidney disease; N18.6 - End stage renal disease; Z99.2 - Dependence on renal dialysis Code(s): E11.9 - Type 2 diabetes mellitus without complications Status: Chronic Assessment and Plan: follow accuchecks glycemic control Assuming blood cultures remain negative and outpatient IV antibiotics can be arranged (she already has a port; her dialysis unit does not carry any effective antibiotics based on sensitivities), would not be opposed to discharge after dialysis treatment today or tomorrow assuming she is otherwise medically stable. Will continue to follow. Subjective Date/time seen: 08/15/22 12:10 Tolerating hemodialysis treatment at the time of my visit (seen on HD at 11:50AM); no apparent distress voiced at this time; no acute complaints noted; no other issues/events overnight or earlier this AM. Exam Narrative: General: WD/WN female in NAD Heart: normal S1 and S2; no rub Lungs: clear to auscultation Abdomen: soft, nontender, nondistended, positive bowel sounds Extremities: no cyanosis or clubbing; no edema Skin: warm and dry Objective Data Vital Signs Vital Signs: Vital Signs Temp Pulse Resp BP Pulse Ox O2 Del Method 08/15/22 12:00 76 119/80 08/15/22 11:40 77 116/81 08/15/22 11:20 73 120/87 08/15/22 11:00 81 124/87 08/15/22 10:40 107 H 111/57 L 08/15/22 10:20 77 114/80 08/15/22 10:
--- NOTE | 2022-08-15 12:44 | PC.NURSE ---
Patient returned to unit from dialysis.
[2022-08-15 12:47] LABS: Glucose Point of Care 194 mg/dl (65-105)
--- NOTE | 2022-08-15 13:50 | PM.IMPN ---
Progress Note: A&P Assessment and Plan (1) Urinary tract infection: Qualifiers: Urinary tract infection type: acute pyelonephritis Qualified Code(s): N10 - Acute pyelonephritis Code(s): N39.0 - Urinary tract infection, site not specified Status: Acute Assessment and Plan: patient presented to the emergency department with complaints of body aches, fever, chills, dysuria. UA showed trace leukocytes with greater than 75 wbc's but many epi cells noted. Patient was started on IV cefepime 1 g Q 24 hours due to prior urine culture results, on 08/09/22. Urine and blood cultures show extensive multi-drug resistant ESBL e.coli. Cefepime stopped 08/11 and Ertapenem HD dosed started with first dose given 08/11/22. Continue for total 14 days course for bacteremia. 08/13/22 patient with low-grade temp. Repeat UA with trace leukocytes, 21-30 WBC, no nitrates, moderate epi cells. Abx expanded to Primaxin renally dosed for bacteremia. 08/13/22 Repeat urine culture pending. Day 2 Primaxin IV, she received 48 hours of Ertapenem prior to this. If repeat blood cultures and urine cultures are negative. We can likely transition back to Ertapenem and plan to complete 10 more days of carbapenem therapy. 08/15/22 Repeat blood cultures from 08/13 negative to date and were drawn prior to Primaxin initiation. No further documented fevers or symptoms. Will change back to Ertapenem 0.5 mg IVPB daily to complete 14 days total, last dose to be 08/25/22. Awaiting arrangements for home infusion for discharge. (2) Pyelonephritis of transplanted kidney: Code(s): T86.19 - Other complication of kidney transplant; N12 - Tubulo-interstitial nephritis, not specified as acute or chronic Status: Acute Assessment and Plan: 08/09/2022 CT abdomen and pelvis shows perinephric stranding surrounding the left pelvic transplant kidney suggesting pyelonephritis. Patient presented with systemic symptoms of infection. WBC 2.9, she is not currently on any immunosuppressants. Continue management as above She sees Dr Reva Edmond, transplant board of directors, who prescribes Belatacept monthly. Her spouse will attempt to send a [employer] message to this provider regarding holding this immunosuppressant medication given her current infection. 08/13/22 patient is neutropenic with wBC 1.6 and ANC 0.4. patient already immunosuppressed. 08/15/22 Discussed patient's admission, hospital course and outpatient IV antibiotic plan with Dr. Reva Edmond. Patient to hold Belatacept infusion x 1 month. He plans to touch base with transplant ID regarding treatment plan and follow-up. (3) Bacteremia due to Gram-negative bacteria: Code(s): R78.81 - Bacteremia Status: Acute Assessment and Plan: blood cultures drawn on 08/09 show MDR ESBL e.coli. Continue antibiotics as above x14 days from negative blood cultures. repeat blood cultures 08/13/22 drawn and pending. If blood cultures persistently positive will need to evaluate vascath and port removal. 08/13/22 Blood cultures pending 08/15/22 blood cultures drawn 08/13/22 negative to date. (4) Leukopenia: Qualifiers: Leukopenia type: neutropenia Neutropenia type: due to infection Qualified Code(s): D70.3 - Neutropenia due to infection Code(s): D72.819 - Decreased white blood cell count, unspecified Status: Acute Assessment and Plan: WBC 1.6 on 08/13/22, ANC 0.4. Temp 100.2F overnight, all other vitals stable. No new symptoms. Repeat CXR pending UA as above, but improved from admission. Place in reverse (protective) isolation. Monitor vitals. Antibiotics changed as above. 08/14/22 WBC 1.8, ANC 0.6. Afebrile x 24 hours. WBC 1.6, ANC 0.5. Afebrile x 48 hours. No new symptoms or signs concerning for infection. (5) End-stage renal disease on hemodialysis: Code(s): N18.6 - End stage renal disease; Z99.2 - Dependence on [place]
[2022-08-15] MEDS: ERTAPENEM SODIUM 0.5 GM in SODIUM CHLORIDE 0.9% IV 50 ML IVPB (14:48)
[2022-08-15 17:18] LABS: Glucose Point of Care 143 mg/dl (65-105)
[2022-08-15] MEDS: CINACALCET 30 MG TABLET PO (17:37)
[2022-08-15] MEDS: DOXAZOSIN MESYLATE 2 MG TABLET PO (17:38)
[2022-08-15] MEDS: NIFEdipine 30 MG TAB.ER.24 PO (20:25)
[2022-08-15] MEDS: HEPARIN SODIUM 5,000 UNITS/ML VIAL 5000 UNITS SUB-Q (20:25)
[2022-08-15] MEDS: CYCLOBENZAPRINE HCL 5 MG TABLET PO (20:25)
[2022-08-15] MEDS: MELATONIN 5 MG TABLET 10 MG PO (20:25)
[2022-08-15] MEDS: diphenhydrAMINE HCl CAP 25 MG CAPSULE 50 MG PO (20:25)
[2022-08-15 20:41] LABS: Glucose Point of Care 201 mg/dl (65-105)
[2022-08-16] VITALS (22 sets, daily range): BP systolic 95–157; BP diastolic 67–94; PULSE 58–103; RESP 18–20; TEMP 36–37.1; O2SAT 99
[2022-08-16] MEDS: CENTRAL LINE FLUSH 10 ML IV PUSH ×2 (05:44→13:07)
[2022-08-16 05:58] LABS: Basophils Percent Auto 2.2 % (0.2-1.2); Eosinophils Absolute Auto 0.1 K/mm3 (0-0.3); Hematocrit 27.7 % (37.0-47.0); Hemoglobin 8.6 g/dL (12.0-15.0); Immature Granulocyte Absolute 0.17 K/mm3 (0.00-0.031); Immature Granulocyte Percent A 9.4 % (0-0.5); Lymphocytes Absolute Auto 0.58 K/mm3 (0.9-3.2); Lymphocytes Percent Auto 32.2 % (18.3-44.2); Mean Corpuscular Hemoglobin 28.6 pg (26-34); Mean Platelet Volume 9.6 fl (7.4-10.4); Monocytes Absolute Auto 0.5 K/mm3 (0.1-0.6); Monocytes Percent Auto 26.7 % (2.6-8.5); Neutrophils Absolute Auto 0.4 K/mm3 (1.3-6.7); Neutrophils Percent Auto 24.5 % (45.5-73.1); Nucleated Red Blood Cells Perc 1.7 % (0.0-0.2); Platelet Count Result 181 k/mm3 (150-375); Red Blood Count 3.01 M/mm3 (4.2-5.4); Red Cell Distribution Width 16.5 % (11.5-14.5)
[2022-08-16 07:08] LABS: White Blood Count 1.8 K/mm3 (4.5-10.0)
[2022-08-16 07:10] LABS: Hypochromasia 1+ (NORMAL); Ovalocytes 1+ (NORMAL); Platelet Estimate Adequate (Adequate); Poikilocytosis 1+ (NORMAL); Schistocytes None Seen (NORMAL); Tear Drop Cells 1+ (NORMAL)
[2022-08-16 07:11] LABS: Anisocytosis 1+ (NORMAL)
[2022-08-16 08:30] LABS: Glucose Point of Care 112 mg/dl (65-105)
[2022-08-16 09:41] LABS: Anion Gap 7 mmol/L (8-16); Blood Urea Nitrogen 15 mg/dL (7-17); Calcium 8.7 mg/dL (8.4-10.2); Carbon Dioxide 27 mmol/L (22-30); Chloride 101 mmol/L (98-107); Estimated CRCL calculation 12 ml/min; Estimated Glomerular Filt Rate 10; Glucose 112 mg/dL (65-110); Phosphorus 4.7 mg/dL (2.5-4.5); Sodium 135 mmol/L (137-145)
--- NOTE | 2022-08-16 10:25 | P.PNNP_ITS ---
Progress Note: A&P Assessment and Plan (1) End stage renal disease: Code(s): N18.6 - End stage renal disease Status: Resolved Assessment and Plan: * HD today due to holiday schedule; next HD session on Monday * follow electrolytes, volume status, and clearance (2) Bacteremia: Code(s): R78.81 - Bacteremia Status: Resolved Assessment and Plan: * blood and urine culture with ESBL E.coli * on IV antibiotics - to complete 14 day course * repeat blood cultures negative to date (3) Urinary tract infection: Qualifiers: Urinary tract infection type: acute pyelonephritis Qualified Code(s): N10 - Acute pyelonephritis Code(s): N39.0 - Urinary tract infection, site not specified Status: Acute Assessment and Plan: * as noted by admission UA * urine culture with E.coli * on IV antibiotics (4) Pyelonephritis of transplanted kidney: Code(s): T86.19 - Other complication of kidney transplant; N12 - Tubulo-interstitial nephritis, not specified as acute or chronic Status: Acute Assessment and Plan: * as suggested by admission imaging * culture data (blood and urine) noted - E.coli (ESBL) resulted * continue IV antibiotics (5) Hypertension: Qualifiers: Hypertension type: primary hypertension Qualified Code(s): I10 - Essential (primary) hypertension Code(s): I10 - Essential (primary) hypertension Status: Chronic Assessment and Plan: * reasonable control at this time * follow trend of hemodynamics (6) Chronic anemia: Code(s): D64.9 - Anemia, unspecified Status: Chronic Assessment and Plan: * due to ESRD * Epogen with HD * however, acute illnesss/infection may have led to epogen resistance * PRBC transfusion per protocol * follow trend of H/H (7) Leukopenia: Qualifiers: Leukopenia type: neutropenia Neutropenia type: due to infection Qualified Code(s): D70.3 - Neutropenia due to infection Code(s): D72.819 - Decreased white blood cell count, unspecified Status: Acute Assessment and Plan: * as noted on CBC * due to infection/bacteremia? * follow trend (8) Type 2 diabetes mellitus: Qualifiers: Diabetes mellitus vermin exterminator insulin use: without vermin exterminator use Diabetes mellitus complication status: with kidney complications Diabetes mellitus complication detail: with chronic kidney disease Chronic kidney disease stage: on chronic dialysis Qualified Code(s): E11.22 - Type 2 diabetes mellitus with diabetic chronic kidney disease; N18.6 - End stage renal disease; Z99.2 - Dependence on renal dialysis Code(s): E11.9 - Type 2 diabetes mellitus without complications Status: Chronic Assessment and Plan: * follow accuchecks * glycemic control Not opposed to discharge after dialysis treatment today assuming she is otherwise medically stable and outpatient IV antibiotics are finalized. Will continue to follow. Subjective Date/time seen: 08/16/22 10:25 Tolerating dialysis treatment at the time of my visit (seen on HD at ~ 10:15AM); hoping for discharge today if outpatient arrangements for antibiotics is finalized; no apparent distress voiced; no other issues/events overnight or earlier this AM. Exam Narrative: General: WD/WN female in NAD Heart: normal S1 and S2; no rub Lungs: clear to auscultation Abdomen: soft, nontender, nondistended, positive bowel sounds Extremities:
--- NOTE | 2022-08-16 10:25 | PM.PNNEP ---
Progress Note: A&P Assessment and Plan (1) End stage renal disease: Code(s): N18.6 - End stage renal disease Status: Resolved Assessment and Plan: HD today due to holiday schedule; next HD session on Monday follow electrolytes, volume status, and clearance (2) Bacteremia: Code(s): R78.81 - Bacteremia Status: Resolved Assessment and Plan: blood and urine culture with ESBL E.coli on IV antibiotics - to complete 14 day course repeat blood cultures negative to date (3) Urinary tract infection: Qualifiers: Urinary tract infection type: acute pyelonephritis Qualified Code(s): N10 - Acute pyelonephritis Code(s): N39.0 - Urinary tract infection, site not specified Status: Acute Assessment and Plan: as noted by admission UA urine culture with E.coli on IV antibiotics (4) Pyelonephritis of transplanted kidney: Code(s): T86.19 - Other complication of kidney transplant; N12 - Tubulo-interstitial nephritis, not specified as acute or chronic Status: Acute Assessment and Plan: as suggested by admission imaging culture data (blood and urine) noted - E.coli (ESBL) resulted continue IV antibiotics (5) Hypertension: Qualifiers: Hypertension type: primary hypertension Qualified Code(s): I10 - Essential (primary) hypertension Code(s): I10 - Essential (primary) hypertension Status: Chronic Assessment and Plan: reasonable control at this time follow trend of hemodynamics (6) Chronic anemia: Code(s): D64.9 - Anemia, unspecified Status: Chronic Assessment and Plan: due to ESRD Epogen with HD however, acute illnesss/infection may have led to epogen resistance PRBC transfusion per protocol follow trend of H/H (7) Leukopenia: Qualifiers: Leukopenia type: neutropenia Neutropenia type: due to infection Qualified Code(s): D70.3 - Neutropenia due to infection Code(s): D72.819 - Decreased white blood cell count, unspecified Status: Acute Assessment and Plan: as noted on CBC due to infection/bacteremia? follow trend (8) Type 2 diabetes mellitus: Qualifiers: Diabetes mellitus long chain quiller tender insulin use: without long chain quiller tender use Diabetes mellitus complication status: with kidney complications Diabetes mellitus complication detail: with chronic kidney disease Chronic kidney disease stage: on chronic dialysis Qualified Code(s): E11.22 - Type 2 diabetes mellitus with diabetic chronic kidney disease; N18.6 - End stage renal disease; Z99.2 - Dependence on renal dialysis Code(s): E11.9 - Type 2 diabetes mellitus without complications Status: Chronic Assessment and Plan: follow accuchecks glycemic control Not opposed to discharge after dialysis treatment today assuming she is otherwise medically stable and outpatient IV antibiotics are finalized. Will continue to follow. Subjective Date/time seen: 08/16/22 10:25 Tolerating dialysis treatment at the time of my visit (seen on HD at ~ 10:15AM); hoping for discharge today if outpatient arrangements for antibiotics is finalized; no apparent distress voiced; no other issues/events overnight or earlier this AM. Exam Narrative: General: WD/WN female in NAD Heart: normal S1 and S2; no rub Lungs: clear to auscultation Abdomen: soft, nontender, nondistended, positive bowel sounds Extremities: no cyanosis or clubbing; no edema Skin: warm and dry Objective Data Vital Signs Vital Signs: Vital Signs Temp Pulse Resp BP Pulse Ox O2 Del Method 08/16/22 10:16 88 112/83 08/16/22 10:00 95 123/89 08/16/22 09:45 88 141/85 H 08/16/22 09:30 92 144/93 H 08/16/22 09:15 91 127/94 H 08/16/22 09:09 87 134/94 H 08/16/22 08:45 97.5 F L 86 20 151/91 H 08/16/22 04:26 97.7 F 86 18 151/90 H 99 08/15/22 20:
[2022-08-16] MEDS: ERTAPENEM SODIUM 0.5 GM in SODIUM CHLORIDE 0.9% IV 50 ML IVPB (13:04)
[2022-08-16] MEDS: HEPARIN SODIUM 5,000 UNITS/ML VIAL 5000 UNITS SUB-Q (13:05)
[2022-08-16] MEDS: DOXAZOSIN MESYLATE 2 MG TABLET PO (13:05)
[2022-08-16] MEDS: PANTOPRAZOLE 40 MG TABLET PO (13:05)
[2022-08-16] MEDS: ASPIRIN 81 MG ENTERIC TABLET PO (13:05)
[2022-08-16] MEDS: ROSUVASTATIN 10 MG TABLET 20 MG PO (13:06)
[2022-08-16] MEDS: CINACALCET 30 MG TABLET PO (13:06)
[2022-08-16] MEDS: METOPROLOL SUCCINATE EXT REL 25 MG TABCR 75 MG PO (13:06)
[2022-08-16] MEDS: NIFEdipine 30 MG TAB.ER.24 PO (13:06)
[2022-08-16] MEDS: BUMETANIDE 1 MG TABLET 2 MG PO (13:06)
[2022-08-16] MEDS: allopurinoL 150 MG TABLET PO (13:06)
[2022-08-16] MEDS: CHOLECALCIFEROL 1,000 UNITS TABLET 4000 UNITS PO (13:06)
[2022-08-16] MEDS: calcitrioL 0.25 MCG CAPSULE PO (13:07)
[2022-08-16 13:18] LABS: Glucose Point of Care 125 mg/dl (65-105)
--- NOTE | 2022-08-16 13:53 | PM.DS ---
DS: Admitting Diagnosis Discharge Date 08/16/22 1452 Admitting Diagnosis (1) Urinary tract infection: ?Code(s): N39.0 - Urinary tract infection, site not specified ?Status:?Acute (2) Pyelonephritis of transplanted kidney: ?Code(s): T86.19 - Other complication of kidney transplant; N12 - Tubulo-interstitial nephritis, not specified as acute or chronic ?Status:?Acute (3) End-stage renal disease on hemodialysis: ?Code(s): N18.6 - End stage renal disease; Z99.2 - Dependence on renal dialysis ?Status:?chronic (4) Chronic anemia: ?Code(s): D64.9 - Anemia, unspecified ?Status:?chronic (5) Thrombocytopenia: ?Code(s): D69.6 - Thrombocytopenia, unspecified ?Status:?chronic (6) Type 2 diabetes mellitus: ?Code(s): E11.9 - Type 2 diabetes mellitus without complications ?Status:?chronic (7) Hypertension: ?Code(s): I10 - Essential (primary) hypertension ?Status:?chronic (8) Gastroesophageal reflux disease: ?Code(s): K21.9 - Gastro-esophageal reflux disease without esophagitis ?Status:?chronic DS: Discharge Diagnosis Discharge Diagnosis (1) Urinary tract infection: Qualifiers: Urinary tract infection type: acute pyelonephritis Qualified Code(s): N10 - Acute pyelonephritis Code(s): N39.0 - Urinary tract infection, site not specified Status: Acute Assessment and Plan: patient presented to the emergency department with complaints of body aches, fever, chills, dysuria. UA showed trace leukocytes with greater than 75 wbc's but many epi cells noted. Patient was started on IV cefepime 1 g Q 24 hours due to prior urine culture results, on 08/09/22. Urine and blood cultures show extensive multi-drug resistant ESBL e.coli. Cefepime stopped 08/11 and Ertapenem HD dosed started with first dose given 08/11/22. Continue for total 14 days course for bacteremia. 08/13/22 patient with low-grade temp. Repeat UA with trace leukocytes, 21-30 WBC, no nitrates, moderate epi cells. Abx expanded to Primaxin renally dosed for bacteremia. 08/13/22 Repeat urine culture pending. Day 2 Primaxin IV, she received 48 hours of Ertapenem prior to this. If repeat blood cultures and urine cultures are negative. We can likely transition back to Ertapenem and plan to complete 10 more days of carbapenem therapy. 08/15/22 Repeat blood cultures from 08/13 negative to date and were drawn prior to Primaxin initiation. No further documented fevers or symptoms. Will change back to Ertapenem 0.5 mg IVPB daily to complete 14 days total, last dose to be 08/25/22. Awaiting arrangements for home infusion for discharge. (2) Pyelonephritis of transplanted kidney: Code(s): T86.19 - Other complication of kidney transplant; N12 - Tubulo-interstitial nephritis, not specified as acute or chronic Status: Acute Assessment and Plan: 08/09/2022 CT abdomen and pelvis shows perinephric stranding surrounding the left pelvic transplant kidney suggesting pyelonephritis. Patient presented with systemic symptoms of infection. WBC 2.9, she is not currently on any immunosuppressants. Continue management as above She sees Dr Reva Edmond, transplant unitizer, who prescribes Belatacept monthly. Her spouse will attempt to send a [employer] message to this provider regarding holding this immunosuppressant medication given her current infection. 08/13/22 patient is neutropenic with wBC 1.6 and ANC 0.4. patient already immunosuppressed. 08/15/22 Discussed patient's admission, hospital course and outpatient IV antibiotic plan with Dr. Reva Edmond. Patient to hold Belatacept infusion x 1 month. He plans to touch base with transplant ID regarding treatment plan and follow-up. (3) Bacteremia due to Gram-negative bacteria: Code(s): R78.81 - Bacteremia Status: Acute Assessment and Plan: blood cultures drawn on 08/09 show MDR ESBL e.coli. Continue antibiotic
--- NOTE | 2022-08-16 15:00 | PC.NURSE ---
Per Care Coordination, Dinah, we are to deaccess the pt's port before discharge from the hospital. [facility] has their own supplies to reaccess the port tomorrow before the next abx dose.
[2022-08-16] MEDS: HEPARIN SODIUM LOCK FLUSH 500 UNITS/5 ML SYRINGE IV PUSH (15:49)
== END 2022-08-16 16:21 | disposition home health service (06) | DRG 698 ==
LOC: ANHED 12:44 → ANH3MED 17:22
PROVIDERS: Internal Medicine Nephrology; Physician Assistant; Admitting Provider Internal Medicine; Emergency Provider Emergency Medicine; Visit Provider Nurse Practitioner Family
DX: T86.13 Kidney transplant infection (principal); N18.6 End stage renal disease; I12.0 Hypertensive chronic kidney disease with stage 5 chronic kidney disease or end stage renal disease; R78.81 Bacteremia; Z16.12 Extended spectrum beta lactamase (ESBL) resistance; N16 Renal tubulo-interstitial disorders in diseases classified elsewhere; Z99.2 Dependence on renal dialysis; D63.1 Anemia in chronic kidney disease; D69.6 Thrombocytopenia, unspecified; E11.22 Type 2 diabetes mellitus with diabetic chronic kidney disease; K21.9 Gastro-esophageal reflux disease without esophagitis; B96.20 Unspecified Escherichia coli [E. coli] as the cause of diseases classified elsewhere; D70.3 Neutropenia due to infection; Z82.49 Family history of ischemic heart disease and other diseases of the circulatory system; Z79.82 Long term (current) use of aspirin; Z79.899 Other long term (current) drug therapy; Z88.1 Allergy status to other antibiotic agents; Z88.5 Allergy status to narcotic agent; Z20.822 Contact with and (suspected) exposure to COVID-19
CPT/HCPCS: 36415; 36430; 71045; 74176; 80048; 80053; 80069; 81001; 82274; 82948; 83605; 83735; 84100; 85014; 85018; 85025; 85027; 86706; 86850; 86900; 86901; 86923; 87040; 87077; 87081; 87086; 87088; 87186; 87340; 87636; 93005; 96365; 96375; 99285; A9270; G0257; G0378; J0692; J0743; J1335; J1642; J1644; J2405; J7030; J7050; P9016; Q5105

== ENCOUNTER 2022-11-16 15:26 | Emergency (ER) | payer MEDICARE, BC, SELFPAY ==
--- NOTE | 2022-11-16 15:29 | ED.URI ---
HPI - URI/Sore Throat General Chief Complaint: Upper Respiratory Infection Stated Complaint: COUGH/SORE THROAT Time Seen by Provider: 11/16/22 15:29 Source: patient and RN notes reviewed History of Present Illness HPI Narrative: Patient is a 62-year-old female presents to urgent care with complaints of productive cough, congestion, mild sore throat the morning, bilateral ear pain, and fatigue. Patient states she has been taking zrwu-ndh-[id number] decongestion medications, antihistamine. Patient denies any fevers, nausea or vomiting. Denies any shortness of breath. Patient does have a history of kidney failure and kidney transplant. Patient is currently on dialysis. States her symptoms started 1 week ago and the xlkh-nge-qwoxtqi medication does not seem to be helping her symptoms. No other acute complaints. No acute distress noted. Patient aware of the plan of care. Some parts of this dictation were generated by voice recognition software and may contain typographical and/or grammatical inaccuracies. Related Data Home Medications Medication Instructions Recorded Confirmed aspirin 81 mg tablet,delayed 81 mg PO DAILY 10/24/19 11/16/22 release melatonin 10 mg capsule 10 mg PO HS 08/31/20 11/16/22 diphenhydramine HCl 25 mg capsule 50 mg PO HS 11/03/20 11/16/22 (Benadryl) rosuvastatin 20 mg tablet 20 mg PO DAILY 06/07/21 11/16/22 allopurinol 100 mg tablet 150 mg PO DAILY 07/22/22 11/16/22 calcitriol 0.25 mcg capsule 0.25 mcg PO DAILY 07/22/22 11/16/22 cinacalcet 30 mg tablet 30 mg PO BID 07/22/22 11/16/22 sitagliptin phosphate 25 mg tablet 25 mg PO DAILY 07/22/22 11/16/22 (Januvia) cholecalciferol (vitamin D3) 100 100 mcg PO DAILY 08/09/22 11/16/22 mcg (4,000 unit) tablet lansoprazole 30 mg capsule,delayed 30 mg PO BID 08/09/22 11/16/22 release metoprolol succinate 50 mg 50 mg PO DAILY 08/09/22 11/16/22 tablet,extended release 24 hr nifedipine 30 mg tablet,extended 30 mg PO BID 08/09/22 11/16/22 release Allergies Allergy/AdvReac Type Severity Reaction Status Date / Time amoxicillin Allergy Unknown Rash Verified 11/16/22 15:43 clavulanic acid Allergy Unknown RASH Verified 11/16/22 15:43 fentanyl AdvReac Unknown very Verified 11/16/22 15:43 emotional crying levofloxacin AdvReac Unknown Nausea And Verified 11/16/22 15:43 Vomiting Review of Systems Review of Systems: CONSTITUTIONAL: Denies fever, chills, or sweats. EYES: Denies visual changes, redness, or discharge. ENT: Reports of congestion, rhinorrhea, postnasal drainage, sinus pressure bilateral ear discomfort CARDIOVASCULAR: Denies chest pain, palpitations, or edema. RESPIRATORY: Reports a productive cough without dyspnea GASTROINTESTINAL: Denies abdominal pain, nausea, vomiting, or diarrhea. GENITOURINARY: Denies dysuria or hematuria. SKIN: Denies rash or itching. MUSCULOSKELETAL: Denies back pain, joint pain, or myalgia. NEUROLOGIC: Denies headache, numbness, or weakness. All other systems reviewed are negative, except as documented in HPI. [facility] Past Medical History Medical History (Updated 11/16/22 @ 16:06 by VIRGEN Christopher) Arthritis Chronic anemia Cytomegalovirus End-stage renal disease on hemodialysis Gastroesophageal reflux disease Hyperlipidemia Hypertension Renal transplant recipient Failed transplant now on hemodialysis. Thrombocytopenia Type 2 diabetes mellitus Wilm's tumor of right kidney Surgical History Surgical History (Updated 08/09/22 @ 23:46 by Iris Foster PA-C) History of appendectomy History of cholecystectomy History of hysterectomy History of renal transplant (09/2018) History of right nephrectomy As a child for Wilms tumor. Family History Family History Mother Family history of thyroid disease Family history of osteoporosis Depression Hypertension Family history of elevated blood lipids Family history of art
[2022-11-16 15:34] VITALS: BP 127/79; PULSE 95; RESP 16; TEMP 36.4; O2SAT 98
== END 2022-11-16 16:15 | disposition home or self-care (01) ==
PROVIDERS: Emergency Provider Nurse Practitioner Family; PCP Family Medicine
DX: J32.9 Chronic sinusitis, unspecified (principal); Z79.82 Long term (current) use of aspirin; K21.9 Gastro-esophageal reflux disease without esophagitis; E78.5 Hyperlipidemia, unspecified; I12.0 Hypertensive chronic kidney disease with stage 5 chronic kidney disease or end stage renal disease; E11.22 Type 2 diabetes mellitus with diabetic chronic kidney disease; N18.6 End stage renal disease; Z99.2 Dependence on renal dialysis
CPT/HCPCS: 99213; G0463

== ENCOUNTER 2023-04-18 14:43 | Outpatient (CLI) | payer MEDICARE, BC, SELFPAY ==
--- NOTE | ~2023-04-18 | MM_ITS ---
EXAMINATION: MM screening stacey BI w socorro HISTORY: Screening mammogram TECHNIQUE: Craniocaudal and mediolateral oblique 3-D tomosynthesis images were obtained and synthetic 2-D images were generated. CAD analysis was submitted and interpreted. COMPARISON: November 09, 2021, September 23, 2020 bilateral screening mammogram examinations BREAST PARENCHYMAL COMPOSITION: There are scattered areas of fibroglandular density. FINDINGS: There is no evidence of suspicious mass, calcification, or architectural distortion to sugg est malignancy in either breast. There has been no suspicious interval change. IMPRESSION: 1. No mammographic evidence of malignancy. 2. Recommend routine screening mammography in one year. BI-RADS Category 1: Negative Reviewed, dictated and finalized at location L.
== END 2023-04-18 14:44 | disposition home or self-care (01) ==
PROVIDERS: PCP Family Medicine; Visit Provider Family Medicine
DX: Z12.31 Encounter for screening mammogram for malignant neoplasm of breast (principal)
CPT/HCPCS: 77063; 77067

== ENCOUNTER 2023-12-02 11:25 | Emergency (ER) | payer MEDICARE, BC, SELFPAY ==
--- NOTE | ~2023-12-02 | XR_ITS ---
XR chest 2V DATE: 12/02/2023 11:44 INDICATION: Cough TECHNIQUE: PA and lateral views COMPARISON: 08/13/2022 portable AP chest FINDINGS: Left Port-A-Cath catheter tip overlies right atrium. Heart size is within normal limits. Mild aortic unfolding. No hilar or mediastinal enlargement. No pu lmonary vascular congestion or pleural effusion or pneumothorax. Minimal discoid scarring in the late ral left lung. No infiltrate or consolidation. IMPRESSION: No active cardiopulmonary disease or significant change since 08/13/2022 Reviewed, dictated and finalized at location A. [facility] MAN
[2023-12-02 11:33] VITALS: BP 142/90; PULSE 96; RESP 16; TEMP 36.4; O2SAT 99
--- NOTE | 2023-12-02 11:35 | ED.URI ---
HPI - URI/Sore Throat General Chief Complaint: Upper Respiratory Infection Stated Complaint: COUGH Source: patient Mode of arrival: ambulatory Limitations: no limitations History of Present Illness HPI Narrative: 63 y/o female with hx DM and ESRD on dialysis presented for c/o cough x6 weeks. The cough is worsening over the past week. Sleeping with head of bed elevated cough productive thick mucous, springer to clear in color. Denies sob, wheezing, n/v/d/f/c or lethargy. Denies increase in swelling. PD access port was placed 3. Taking mucinex x1 week. Related Data Home Medications Medication Instructions Recorded Confirmed aspirin 81 mg tablet,delayed 81 mg PO DAILY 10/24/19 11/16/22 release melatonin 10 mg capsule 10 mg PO HS 08/31/20 11/16/22 diphenhydramine HCl 25 mg capsule 50 mg PO HS 11/03/20 11/16/22 (Benadryl) rosuvastatin 20 mg tablet 20 mg PO DAILY 06/07/21 11/16/22 allopurinol 100 mg tablet 150 mg PO DAILY 07/22/22 11/16/22 calcitriol 0.25 mcg capsule 0.25 mcg PO DAILY 07/22/22 11/16/22 cinacalcet 30 mg tablet 30 mg PO BID 07/22/22 11/16/22 sitagliptin phosphate 25 mg tablet 25 mg PO DAILY 07/22/22 11/16/22 (Januvia) cholecalciferol (vitamin D3) 100 100 mcg PO DAILY 08/09/22 11/16/22 mcg (4,000 unit) tablet lansoprazole 30 mg capsule,delayed 30 mg PO BID 08/09/22 11/16/22 release metoprolol succinate 50 mg 50 mg PO DAILY 08/09/22 11/16/22 tablet,extended release 24 hr nifedipine 30 mg tablet,extended 30 mg PO BID 08/09/22 11/16/22 release allopurinol 100 mg tablet mg 12/02/23 bumetanide 2 mg tablet mg 12/02/23 calcitriol 0.25 mcg capsule mcg 12/02/23 calcium acetate(phosphat bind) 667 mg 12/02/23 mg capsule doxazosin 4 mg tablet mg 12/02/23 metoprolol succinate 100 mg mg PO 12/02/23 tablet,extended release 24 hr nifedipine 60 mg tablet,extended mg PO 12/02/23 release rosuvastatin 20 mg tablet mg 12/02/23 sitagliptin phosphate 25 mg tablet mg 12/02/23 (Januvia) vitamin B complex-vitamin C-folic tablet 12/02/23 12/02/23 acid 0.8 mg tablet (Rossana-Carol) Allergies Allergy/AdvReac Type Severity Reaction Status Date / Time amoxicillin Allergy Unknown Rash Verified 12/02/23 11:39 clavulanic acid Allergy Unknown RASH Verified 12/02/23 11:39 fentanyl AdvReac Unknown very Verified 09/06/23 16:14 emotional crying levofloxacin AdvReac Unknown Nausea And Verified 12/02/23 11:39 Vomiting Review of Systems Review of Systems: CONSTITUTIONAL: Denies body aches, fever, chills, or sweats. EYES: Denies visual changes, redness, or discharge. ENT: Denies rhinorrhea, congestion, sore throat, or otalgia. CARDIOVASCULAR: Denies chest pain, palpitations, or edema. RESPIRATORY: Reports cough, denies sob, wheezing. GASTROINTESTINAL: Denies abdominal pain, nausea, vomiting, or diarrhea. GENITOURINARY: Denies dysuria or hematuria. SKIN: Denies rash, itching, or wounds. MUSCULOSKELETAL: Denies back pain, joint pain, or myalgia. NEUROLOGIC: Denies headache, numbness, tingling, or weakness. All systems reviewed & are unremarkable except as noted in HPI and below PMFSH Past Medical History Medical History Arthritis Chronic anemia Cytomegalovirus End-stage renal disease on hemodialysis Gastroesophageal reflux disease Hyperlipidemia Hypertension Renal transplant recipient Failed transplant now on hemodialysis. Thrombocytopenia Type 2 diabetes mellitus Wilm's tumor of right kidney Surgical History Surgical History History of appendectomy History of cholecystectomy History of hysterectomy History of renal transplant (09/2018) History of right nephrectomy As a child for Wilms tumor. Family History Family History Mother Family history of thyroid disease Family history of osteoporosis Depression Hyperte
== END 2023-12-02 12:22 | disposition home or self-care (01) ==
PROVIDERS: Emergency Provider Nurse Practitioner Family; PCP Family Medicine
DX: J40 Bronchitis, not specified as acute or chronic (principal); M19.90 Unspecified osteoarthritis, unspecified site; K21.9 Gastro-esophageal reflux disease without esophagitis; E78.5 Hyperlipidemia, unspecified; I10 Essential (primary) hypertension; I12.0 Hypertensive chronic kidney disease with stage 5 chronic kidney disease or end stage renal disease; E11.22 Type 2 diabetes mellitus with diabetic chronic kidney disease; N18.6 End stage renal disease; Z99.2 Dependence on renal dialysis; D69.6 Thrombocytopenia, unspecified; D64.9 Anemia, unspecified; Z79.82 Long term (current) use of aspirin; T86.12 Kidney transplant failure
CPT/HCPCS: 71046; 99213; G0463

== ENCOUNTER 2024-01-15 14:17 | Emergency (ER) | payer MEDICARE, BC, SELFPAY ==
[2024-01-15 14:23] VITALS: BP 136/92; PULSE 103; RESP 16; TEMP 36.2; O2SAT 100
[2024-01-15 14:36] VITALS: BP 136/92; PULSE 103; RESP 16; TEMP 36.2; O2SAT 100
--- NOTE | 2024-01-15 14:50 | ED.URI ---
HPI - URI/Sore Throat General Chief Complaint: Upper Respiratory Infection Stated Complaint: Throat Irritation Time Seen by Provider: 01/15/24 14:43 Source: patient and RN notes reviewed Mode of arrival: ambulatory Limitations: no limitations History of Present Illness HPI Narrative: Patient presents today complaining of a 2 day history of sore throat. Denies any additional acute symptoms, but does report some chronic postnasal drainage and cough that are unchanged from baseline. Denies shortness of breath, fever. She currently rates her pain 2/10 at rest, which increases to 8/10 with swallowing. She has tried no [id number] treatment prior to arrival. Related Data Home Medications Medication Instructions Recorded Confirmed aspirin 81 mg tablet,delayed 81 mg PO DAILY 10/24/19 01/15/24 release rosuvastatin 20 mg tablet 20 mg PO DAILY 06/07/21 01/15/24 allopurinol 100 mg tablet 150 mg PO DAILY 07/22/22 01/15/24 calcitriol 0.25 mcg capsule 0.25 mcg PO DAILY 07/22/22 01/15/24 cinacalcet 30 mg tablet 30 mg PO BID 07/22/22 01/15/24 sitagliptin phosphate 25 mg tablet 25 mg PO DAILY 07/22/22 01/15/24 (Januvia) cholecalciferol (vitamin D3) 100 100 mcg PO DAILY 08/09/22 01/15/24 mcg (4,000 unit) tablet lansoprazole 30 mg capsule,delayed 30 mg PO BID 08/09/22 01/15/24 release metoprolol succinate 50 mg 25 mg PO DAILY 08/09/22 01/15/24 tablet,extended release 24 hr nifedipine 30 mg tablet,extended 60 mg PO BID 08/09/22 01/15/24 release bumetanide 2 mg tablet 2 mg PO BID 12/02/23 01/15/24 calcium acetate(phosphat bind) 667 667 mg PO 6XD 12/02/23 01/15/24 mg capsule vitamin B complex-vitamin C-folic 1 tablet PO DAILY 12/02/23 01/15/24 acid 0.8 mg tablet (Rossana-Carol) alprazolam 0.25 mg tablet (Xanax) 0.25 mg PO HS PRN Sleep 01/15/24 01/15/24 cyclobenzaprine 5 mg tablet 5 mg PO HS 01/15/24 01/15/24 lisinopril 40 mg tablet 40 mg PO DAILY 01/15/24 01/15/24 trazodone 50 mg tablet 50 mg PO HS 01/15/24 01/15/24 Allergies Allergy/AdvReac Type Severity Reaction Status Date / Time amoxicillin Allergy Unknown Rash Verified 01/15/24 14:26 clavulanic acid Allergy Unknown RASH Verified 01/15/24 14:26 fentanyl AdvReac Unknown very Verified 01/15/24 14:26 emotional crying levofloxacin AdvReac Unknown Nausea And Verified 01/15/24 14:26 Vomiting Review of Systems Review of Systems: CONSTITUTIONAL: Denies body aches, fever, chills, or sweats. EYES: Denies visual changes, redness, or discharge. ENT: Denies rhinorrhea, congestion, or otalgia.+ sore throat CARDIOVASCULAR: Denies chest pain, palpitations, or edema. RESPIRATORY: Denies cough or dyspnea. GASTROINTESTINAL: Denies abdominal pain, nausea, vomiting, or diarrhea. GENITOURINARY: Denies dysuria or hematuria. SKIN: Denies rash, itching, or wounds. MUSCULOSKELETAL: Denies back pain, joint pain, or myalgia. NEUROLOGIC: Denies headache, numbness, tingling, or weakness. PSYCH: Denies depression or anxiety. FORMERLY [facility], [facility] Past Medical History Medical History Arthritis Chronic anemia Cytomegalovirus End-stage renal disease on hemodialysis Gastroesophageal reflux disease Hyperlipidemia Hypertension Renal transplant recipient Failed transplant now on hemodialysis. Thrombocytopenia Type 2 diabetes mellitus Wilm's tumor of right kidney Surgical History Surgical History History of appendectomy History of cholecystectomy History of hysterectomy History of renal transplant (09/2018) History of right nephrectomy As a child for Wilms tumor. Family History Family History Mother Family history of thyroid disease Family history of osteoporosis Depression Hypertension Family history of elevated blood lipids Family history of arthritis Family history of chronic obstructi
== END 2024-01-15 14:57 | disposition home or self-care (01) ==
PROVIDERS: Emergency Provider Nurse Practitioner; PCP Family Medicine
DX: J02.9 Acute pharyngitis, unspecified (principal); M19.90 Unspecified osteoarthritis, unspecified site; K21.9 Gastro-esophageal reflux disease without esophagitis; E78.5 Hyperlipidemia, unspecified; I12.0 Hypertensive chronic kidney disease with stage 5 chronic kidney disease or end stage renal disease; E11.22 Type 2 diabetes mellitus with diabetic chronic kidney disease; N18.6 End stage renal disease; Z99.2 Dependence on renal dialysis; T86.12 Kidney transplant failure; Z79.82 Long term (current) use of aspirin
CPT/HCPCS: 87081; 87880; 99213; G0463

== ENCOUNTER 2024-06-19 10:01 | Outpatient (CLI) | payer MEDICARE, BC, SELFPAY ==
--- NOTE | ~2024-06-19 | MM_ITS ---
EXAMINATION: MM screening stacey BI w socorro HISTORY: Screening TECHNIQUE: Craniocaudal and mediolateral oblique 3-D tomosynthesis images were obtained and synthetic 2-D images were generated. CAD analysis was submitted and interpreted. COMPARISON: Comparison to multiple prior studies sequentially, with oldest reviewed study dated 04/18. BREAST PARENCHYMAL COMPOSITION: Not dense: There are scattered areas of fibroglandular density. FINDINGS: There is no evidence of suspicious mass, calcification, or architectural distortion to sugg est malignancy in either breast. There has been no suspicious interval change. IMPRESSION: 1. No mammographic evidence of malignancy. 2. Recommend routine screening mammography in one year. BI-RADS Category 1: Negative Reviewed, dictated and finalized at location B.
== END 2024-06-19 10:02 | disposition home or self-care (01) ==
PROVIDERS: PCP Family Medicine; Visit Provider Family Medicine
DX: Z12.31 Encounter for screening mammogram for malignant neoplasm of breast (principal)
CPT/HCPCS: 77063; 77067

== ENCOUNTER 2024-07-07 12:43 | Emergency (ER) | payer MEDICARE, BC, SELFPAY ==
[2024-07-07 12:57] VITALS: BP 129/88; PULSE 88; RESP 16; TEMP 36.3; O2SAT 99
--- NOTE | 2024-07-07 13:27 | ED.URI ---
HPI - URI/Sore Throat General Chief Complaint: Upper Respiratory Infection Stated Complaint: Cough Source: patient Mode of arrival: ambulatory Limitations: no limitations History of Present Illness HPI Narrative: 64 y/o female with hx HTN, DM, CKD on peritoneal dialysis presented for c/o cough x4 days. Denies sob, wheezing, fatigue, n/v/d/f/c. Taking Tussin. Related Data Home Medications Medication Instructions Recorded Confirmed allopurinol 100 mg tablet 100 mg PO DIRECTED 07/07/24 07/07/24 alprazolam 0.5 mg tablet 0.5 mg PO PRN PRN Anxiety 07/07/24 07/07/24 benzonatate 200 mg capsule 200 mg PO DIRECTED 07/07/24 07/07/24 cyclobenzaprine 5 mg tablet 5 mg PO DIRECTED 07/07/24 07/07/24 lansoprazole 30 mg capsule,delayed 30 mg PO DAILY 07/07/24 07/07/24 release metoprolol succinate 25 mg 25 mg PO DAILY 07/07/24 07/07/24 tablet,extended release 24 hr nifedipine 30 mg tablet,extended 30 mg PO DAILY 07/07/24 07/07/24 release nifedipine 60 mg tablet,extended 60 mg PO DAILY 07/07/24 07/07/24 release rosuvastatin 20 mg tablet 20 mg PO DAILY 07/07/24 07/07/24 sevelamer carbonate 800 mg tablet 800 mg PO DIRECTED 07/07/24 07/07/24 sitagliptin phosphate 25 mg tablet 25 mg PO DAILY 07/07/24 07/07/24 (Januvia) temazepam 7.5 mg capsule 7.5 mg PO DAILY 07/07/24 07/07/24 trazodone 50 mg tablet 50 mg PO DAILY 07/07/24 07/07/24 Allergies Allergy/AdvReac Type Severity Reaction Status Date / Time amoxicillin [From Augmentin] Allergy Hives Verified 07/07/24 13:21 clavulanic acid Allergy Hives Verified 07/07/24 13:21 [From Augmentin] levofloxacin [From Levaquin] AdvReac Vomiting Verified 07/07/24 13:21 Review of Systems Review of Systems: CONSTITUTIONAL: Denies body aches, fever, chills, or sweats. EYES: Denies visual changes, redness, or discharge. ENT: Denies rhinorrhea, congestion, sore throat, or otalgia. CARDIOVASCULAR: Denies chest pain, palpitations, or edema. RESPIRATORY: Reports cough, denies sob, wheezing. GASTROINTESTINAL: Denies abdominal pain, nausea, vomiting, or diarrhea. MUSCULOSKELETAL: Denies back pain, joint pain, or myalgia. NEUROLOGIC: Denies headache All systems reviewed & are unremarkable except as noted in HPI and below PMFSH Past Medical History Medical History (Updated 07/07/24 @ 13:40 by Clara Davis APRN) CKD (chronic kidney disease) Diabetes HTN (hypertension) Patient on peritoneal dialysis Comments At time of signature, I have reviewed and agree with nursing past medical, surgical, social and family history unless otherwise noted. Please see nursing chart for further information. There is no relevant family history pertinent to the presenting complaint Exam Narrative: GENERAL: Well-appearing, in no acute distress. EYES: EOMI. No redness or drainage. Conjunctivae normal. ENT: Mucous membranes pink and moist. No rhinorrhea. TMs normal bilaterally. Throat normal. Uvula midline. CHEST: No respiratory distress. lungs clear to all restrepo. HEART: Regular rate and rhythm. No murmur appreciated. 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 Capillary refill normal. Normal skin turgor. NEURO: Alert and oriented x3. Gait steady. PSYCH: Normal affect. Course Course Emergency Course: Patient is aware of diagnosis, understands and agrees to treatment plan. Anticipatory guidance given. Patient agrees to follow-up as directed and is aware of reasons to seek care at the emergency department. Portions of this record may have been created with voice recognition software Level of Care: Express Care Visit Vital Signs Vital signs: Vital Signs Temperature 97.4 F L 07/07/24 12:57 Pulse Rate 88 07/07/24 12:57 Respiratory Rate 16 07/07/24 12:57 Blood Pressure 129/88 07/07/24 12:57 Pulse Oximetry 99 07/07/24 12:57 Temperature 97.4 F L 07/07/24 12:57 Pulse Rate 88 07/07/24 12:57 Respiratory Rate 16 07/07/24 12:57 Blood Pressure 129/88 07/07/24 12:57 Pulse Oximetry 99 07/07/24 12:57 MDM - URI/Sore Throat MDM Narrative Medical decision making narrative: Discussed physical exam findings. Advised supportive measures and signs/symptoms to go to the ER. Pt is appropriate for outpt treatment and f/u. Differential Diagnosis Differential diagnosis: Likely upper respiratory infection, sinusitis, viral infection and bronchitis Discharge Plan Discharge Clinical Impression: Bronchitis Patient Disposition: Home, Self-Care Condition: Stable Instructions: Antibiotic Form, Acute Bronchitis (ED) Additional Instructions: Acute bronchitis can be contagious because it is usually caused by infection with a virus or bacteria. It is usually for a few days but you can be contagious for up to one week. Take medication as directed. Steroid can raise your blood sugar levels. Recommend Flonase spray and Zyrtec (or Claritin/Audrey) if you have nasal congestion over the counter Cough syrup may cause drowsiness; avoid driving or take it at night time. Tylenol 1000mg every 8 hours as needed for pain Symptomatic treatment includes: rest, fluids, and increase humidity of the air at home. Follow up with your primary care provider as needed in 1 week Go to the ER for worsening symptoms or concerns Prescriptions: New prednisone 20 mg tablet 40 mg PO DAILY 5 Days Qty: 10 0RF albuterol sulfate 90 mcg/actuation HFA aerosol inhaler 2 inh inhalation QID PRN (Reason: shortness of breath or wheezing) Qty: 8.5 0RF No Action trazodone 50 mg tablet 50 mg PO DAILY benzonatate 200 mg capsule 200 mg PO DIRECTED nifedipine 30 mg tablet extended release 30 mg PO DAILY allopurinol 100 mg tablet 100 mg PO DIRECTED temazepam 7.5 mg capsule 7.5 mg PO DAILY alprazolam 0.5 mg tablet 0.5 mg PO PRN PRN (Reason: Anxiety) lansoprazole 30 mg capsule,delayed release(DR/EC) 30 mg PO DAILY metoprolol succinate 25 mg tablet extended release 24 hr 25 mg PO DAILY nifedipine 60 mg tablet extended release 60 mg PO DAILY cyclobenzaprine 5 mg tablet 5 mg PO DIRECTED rosuvastatin 20 mg tablet 20 mg PO DAILY Januvia 25 mg tablet 25 mg PO DAILY sevelamer carbonate 800 mg tablet 800 mg PO DIRECTED Follow-up/Referrals: Compa Sam MD [Primary Care Provider] - Time of Disposition: 13:37
== END 2024-07-07 13:42 | disposition home or self-care (01) ==
PROVIDERS: Emergency Provider Nurse Practitioner Family; PCP Family Medicine
DX: J40 Bronchitis, not specified as acute or chronic (principal); I12.0 Hypertensive chronic kidney disease with stage 5 chronic kidney disease or end stage renal disease; E11.22 Type 2 diabetes mellitus with diabetic chronic kidney disease; N18.6 End stage renal disease; Z99.2 Dependence on renal dialysis; Z79.84 Long term (current) use of oral hypoglycemic drugs
CPT/HCPCS: 99213; G0463

== ENCOUNTER 2024-09-24 23:00 | Inpatient (IN) | payer MEDICARE, BC, SELFPAY ==
--- NOTE | ~2024-09-24 | XR_ITS ---
Portable chest x-ray Comparison: 09/24/2024 Clinical History: Chest pain Findings: Left-sided Mediport unchanged. Possible minimal central pulmonary venous congestive change . Lungs are otherwise clear. Cardiomediastinal silhouette is stable. Bones and soft tissues are stab le. Impression: Minimal central pulmonary venous congestive change. Stable Mediport. Reviewed, dictated and finalized at [facility]. NS DISPATCHER SUPERVISOR Impression: Minimal central pulmonary venous congestive change. Stable Mediport.
--- NOTE | ~2024-09-24 | XR_ITS ---
EXAMINATION: XR chest 1V portable Exam Date/Time: 09/24/2024 19:50 SQL MANAGER HISTORY: AMS Comparison: 12/02/2023. RESULT: Lines, tubes, and devices: Implanted left chest port terminating in the right atrium. Cholecystectom y clips. Apparently fractured or disconnected spinal fusion josemanuel, which is a chronic finding. Lungs and pleura: Senescent change and scattered minimal scarring/atelectasis. Cardiomediastinal silhouette: Stable. Other: No acute osseous or upper abdominal finding. IMPRESSION: No acute cardiopulmonary process. Reviewed, dictated and finalized at location [facility]. MANAGER
--- NOTE | ~2024-09-24 | CT_ITS ---
EXAMINATION: CT brain wo con DATE: 09/24/2024 20:47 INDICATION: AMS . TECHNIQUE: Computed tomography (CT) of the head was performed without intravenous contrast. The mA wa s adjusted according to patient size. Iterative reconstruction technique was employed. The dose-lengt h product was 681.00 mGy-cm. COMPARISON: None. FINDINGS: No acute intracranial hemorrhage or extra-axial fluid collection. No hydrocephalus, mass, or herniation. No acute ischemic infarct. Unremarkable dural venous sinus attenuation. No acute osseous abnormality. Small right posterior frontal osteoma. The aerated spaces are clear. Mild atrophy. Focal left basal ganglia lacunar infarct. Atherosclerotic intracranial calcification. B ilateral lens replacements. IMPRESSION: No acute intracranial process. Reviewed, dictated and finalized at location K. STIC MANAGER
--- NOTE | ~2024-09-24 | CT_ITS ---
EXAMINATION: CT chest abdomen pelvis wo con DATE: 09/24/2024 20:47 INDICATION: AMS, N/V/D . TECHNIQUE: Computed tomography (CT) of the chest, abdomen, and pelvis was performed with 100 mL Omnip aque-350 intravenous contrast. Automated exposure control and iterative reconstruction technique were employed. The dose-length product was 1361.48 mGy-cm. COMPARISON: X-ray chest, same date; CT abdomen pelvis 08/09/2022 FINDINGS: Examination limited by motion artifact and beam hardening from arm down positioning. CHEST: Thoracic aorta: No significant dilation. No dissection. Mild arch calcification. Lung parenchyma and airways: Motion artifact. Low lung volumes. Patent airways. Mild dependent atelec tasis.. Thoracic inlet, axillae and chest wall: Left chest implanted port which terminates in the right atriu m. No thyroid or soft tissue mass. No axillary lymphadenopathy. Mediastinum: No mass or lymphadenopathy. Heart and pericardium: Mild cardiomegaly. No pericardial effusion. Coronary artery calcifications: Absent. Pleura: No effusion or mass. Thoracic bones: No acute osseous finding in the chest. ABDOMEN/PELVIS: Liver: Normal. Biliary/Gallbladder: Gallbladder is absent. Intra and extrahepatic bile duct dilation, similar to chucky or examination, likely secondary to cholecystectomy. Pancreas: No mass or duct dilation. Spleen: Normal. Adrenals:Stable subcentimeter left adrenal adenoma. Indeterminate density right adrenal nodule, sligh tly increased in size, likely representing adenoma. Kidneys: The right kidney is absent. Left cortical thinning and scarring. Multiple left renal cysts a nd indeterminate/hyperdense cysts that are stable, likely representing proteinaceous and hemorrhagic cysts. Stable peripherally calcified left renal cyst GI tract: No small or large bowel dilation. Normal appendix. Diverticulosis without diverticulitis. Mesentery/Peritoneum: Small volume mesenteric fluid. Retroperitoneum: No mass Atherosclerotic abdominal aortic and/or arterial calcifications. Pelvis: Normal urinary bladder. Absent uterus. Peritoneal dialysis catheter in good position. Left lo wer quadrant transplant kidney with considerable surrounding fat stranding. Soft Tissues: Soft tissues and body wall unremarkable. Abdominopelvic bones: No acute osseous finding in the abdomen/pelvis. Left thoracolumbar stabilizati on josemanuel, the apparent fracture/disconnection seen in the prior radiograph is not evident, likely due t o changes in positioning. IMPRESSION: No acute process detected in the chest. Considerable fat stranding surrounding the left lower quadrant transplant kidney, as can be seen with infection. Reviewed, dictated and finalized at location K. NESS ETHICS PROFESSOR IMPRESSION: No acute process detected in the chest. Considerable fat stranding surrounding the left lower quadrant transplant kidne y, as can be seen with infection.
[2024-09-24 19:25] VITALS: BP 173/90; PULSE 128; RESP 20; TEMP 38.2; O2SAT 98
--- NOTE | 2024-09-24 19:39 | ECG_ITS ---
Test Date: 2024-09-24 20:27:53 Measurements Intervals [place] Rate: 137 P: 53 WA: 146 QRS: -7 QRSD: 84 T: 52 QT: 282 QTc: 427 Interpretive Statements SINUS TACHYCARDIA ANTEROSEPTAL MYOCARDIAL INFARCTION , OF INDETERMINATE AGE [40+ ms Q WAVE IN V1-V4] No previous ECG available for comparison Electronically Signed On 09-24-2024 22:27:24 WEAVER HAND by Domonique Armstrong M.D.
[2024-09-24 20:24] LABS: Influenza A QL RT-PCR Negative (Negative); Influenza B QL RT-PCR Negative (Negative); RSV RNA, RT-PCR Negative (Negative); SARS-CoV-2 RNA PCR Negative (Negative)
[2024-09-24 21:21] LABS: Hematocrit 32.3 % (37.0-47.0); Hemoglobin 9.9 g/dL (12.0-15.0); Mean Corpuscular HGB Conc 30.7 g/dl (32-36); Mean Corpuscular Hemoglobin 29.4 pg (26-34); Mean Corpuscular Volume 95.8 fl (80-100); Mean Platelet Volume 11.1 fl (7.4-10.4); Platelet Count Result 110 k/mm3 (150-375); Red Blood Count 3.37 M/mm3 (4.2-5.4); Red Cell Distribution Width 20.3 % (11.5-14.5); White Blood Count 18.5 K/mm3 (4.5-10.0)
[2024-09-24] MEDS: SODIUM CHLORIDE 0.9% 999 ML IV CONT (21:24)
[2024-09-24 21:29] LABS: Lactic Acid Reflex 2.3 mmol/L (0.7-2.0)
[2024-09-24 21:30] LABS: Alanine Aminotransferase 30 U/L (6-35); Albumin Level 3.1 g/dL (3.5-5.1); Alkaline Phosphatase 89 U/L (38-126); Anion Gap 9 mmol/L (4-12); Aspartate Amino Transferase 26 U/L (14-36); Bilirubin,Total 0.9 mg/dL (0.2-1.3); Blood Urea Nitrogen 45 mg/dL (7-17); Carbon Dioxide 19 mmol/L (22-30); Chloride 102 mmol/L (98-107); Estimated Glomerular Filt Rate 4; Glucose 176 mg/dL (65-110); Lipase 30 U/L (23-300); Magnesium 1.5 mg/dL (1.6-2.3); Phosphorus 7.5 mg/dL (2.5-4.5); Potassium 4.8 mmol/L (3.4-5.0); Sodium 130 mmol/L (137-145)
[2024-09-24 21:31] LABS: INR 1.4; Prothrombin Time 17.6 Seconds (11.1-14.7)
[2024-09-24 21:32] LABS: Partial Thromboplastin Time 33.6 Seconds (22.3-36.8)
[2024-09-24] MEDS: ACETAMINOPHEN 650 MG SUPPOSITORY RECTAL (21:39)
[2024-09-24 21:40] LABS: Band Neutrophils Percent 4 % (0-6); Neutrophils Absolute Manual 17.02 K/mm3 (1.7-7.2); Neutrophils Percent Manual 88 % (46-73); Total Cells Counted 100
[2024-09-24 21:41] LABS: Anisocytosis 1+; Lymphocytes Absolute Manual 0.37 K/mm3 (1.1-4.5); Lymphocytes Percent Manual 2 % (18-44); Monocytes Absolute Manual 1.11 K/mm3 (0.1-0.90); Monocytes Percent Manual 6 % (3-9); Ovalocytes 1+; Platelet Estimate Decreased (Adequate)
[2024-09-24 21:43] LABS: Schistocytes None Seen
[2024-09-24 21:45] LABS: NT Pro B Type Natriuretic Pept > 30000 pg/mL (19.9-100); Troponin I 0.193 ng/mL (0.000-0.034)
[2024-09-24 21:47] LABS: Add Urine Microscopic? YES; Appearance Urine Clear (Clear); Bacteria Urine None Seen /hpf; Bilirubin Urine Negative (Negative); Blood Urine 1+ (Negative); Color Urine Yellow (Yellow); Glucose Urine UA 2+ mg/dL (Negative); Ketones Urine 1+ mg/dL (Negative); Leukocyte Esterase Ur Negative LEU/UL (Negative); Need Manual Microscopic Reviewed; Nitrate Urine Negative (Negative); Protein Urine 4+ mg/dL (Negative); Specific Grav Ur 1.017 (1.001-1.035); Squamous Epithelial Cell Urine None Seen /hpf (Few); Urobilinogen Urine 0.2 mg/dL (<2.0); WBC Urine 0-5 /hpf (0-3); pH Urine 6.5 (5.0-9.0)
[2024-09-24 21:54] LABS: Ethanol < 10 mg/dL (<10)
[2024-09-24 22:23] VITALS: BP 130/87; PULSE 121; RESP 24; TEMP 37.6; O2SAT 95
[2024-09-24 22:26] LABS: Amphetamine Screen Urine Negative (Negative); Barbiturate Screen Urine Negative (Negative); Benzodiazepines Screen Urine Negative (Negative); Cannabinoid Screen Urine Negative (Negative); Cocaine Screen Urine Negative (Negative); Methadone Screen Urine Negative (Negative); Opiate Screen Urine Negative (Negative); Phencyclidine Screen Urine Negative (Negative)
[2024-09-24 23:05] VITALS: BP 157/99; PULSE 134; RESP 22; TEMP 37.8; O2SAT 100
[2024-09-24] MEDS: CEFEPIME 1 GM/NS 50 ML 1 GM/50 ML BAG IVPB (23:10)
--- NOTE | 2024-09-24 23:14 | ED.GENADULT ---
HPI - General Adult General Chief complaint: Altered Mental Status Stated complaint: altered mental status History of Present Illness HPI narrative: This is a 64-year-old female with history of failed kidney transplant presenting for altered mental status. History obtained from her as the patient cannot provide any useful information. Her says that for the last 2 days she has persistent nausea vomiting and diarrhea. She has gotten progressively more weak and confused. He says this has happened in the past when she has become septic. She missed her peritoneal dialysis last night because she was too ill. He recently had similar symptoms before [place]. Related Data Home Medications ?Medication ?Instructions ?Recorded ?Confirmed ?Last Taken ?Type aspirin 81 mg tablet,delayed 81 mg PO DAILY 10/24/19 01/15/24 11/16/21 History release rosuvastatin 20 mg tablet 20 mg PO DAILY 06/07/21 01/15/24 11/17/21 05:30 History allopurinol 100 mg tablet 150 mg PO DAILY 07/22/22 01/15/24 Unknown History calcitriol 0.25 mcg capsule 0.25 mcg PO DAILY 07/22/22 01/15/24 Unknown History cinacalcet 30 mg tablet 30 mg PO BID 07/22/22 01/15/24 Unknown History sitagliptin phosphate 25 mg tablet 25 mg PO DAILY 07/22/22 01/15/24 Unknown History (Januvia) cholecalciferol (vitamin D3) 100 100 mcg PO DAILY 08/09/22 01/15/24 Unknown History mcg (4,000 unit) tablet lansoprazole 30 mg capsule,delayed 30 mg PO BID 08/09/22 01/15/24 Unknown History release metoprolol succinate 50 mg 25 mg PO DAILY 08/09/22 01/15/24 Unknown History tablet,extended release 24 hr nifedipine 30 mg tablet,extended 60 mg PO BID 08/09/22 01/15/24 Unknown History release bumetanide 2 mg tablet 2 mg PO BID 12/02/23 01/15/24 Unknown History calcium acetate(phosphat bind) 667 667 mg PO 6XD 12/02/23 01/15/24 Unknown History mg capsule vitamin B complex-vitamin C-folic 1 tablet PO DAILY 12/02/23 01/15/24 Unknown History acid 0.8 mg tablet ([place]ana-Carol) alprazolam 0.25 mg tablet (Xanax) 0.25 mg PO HS PRN Sleep 01/15/24 01/15/24 Unknown History cyclobenzaprine 5 mg tablet 5 mg PO HS 01/15/24 01/15/24 Unknown History lisinopril 40 mg tablet 40 mg PO DAILY 01/15/24 01/15/24 Unknown History trazodone 50 mg tablet 50 mg PO HS 01/15/24 01/15/24 Unknown History allopurinol 100 mg tablet 100 mg PO DIRECTED 07/07/24 07/07/24 Unknown History alprazolam 0.5 mg tablet 0.5 mg PO PRN PRN Anxiety 07/07/24 07/07/24 Unknown History benzonatate 200 mg capsule 200 mg PO DIRECTED 07/07/24 07/07/24 Unknown History cyclobenzaprine 5 mg tablet 5 mg PO DIRECTED 07/07/24 07/07/24 Unknown History lansoprazole 30 mg capsule,delayed 30 mg PO DAILY 07/07/24 07/07/24 Unknown History release metoprolol succinate 25 mg 25 mg PO DAILY 07/07/24 07/07/24 Unknown History tablet,extended release 24 hr nifedipine 30 mg tablet,extended 30 mg PO DAILY 07/07/24 07/07/24 Unknown History release nifedipine 60 mg tablet,extended 60 mg PO DAILY 07/07/24 07/07/24 Unknown History release rosuvastatin 20 mg tablet 20 mg PO DAILY 07/07/24 07/07/24 Unknown History sevelamer carbonate 800 mg tablet 800 mg PO DIRECTED 07/07/24 07/07/24 Unknown History sitagliptin phosphate 25 mg tablet 25 mg PO DAILY 07/07/24 07/07/24 Unknown History (Januvia) temazepam 7.5 mg capsule 7.5 mg PO DAILY 07/07/24 07/07/24 Unknown History trazodone 50 mg tablet 50 mg PO DAILY 07/07/24 07/07/24 Unknown History Allergies Allergy/AdvReac Type Severity Reaction Status Date / Time amoxicillin Allergy Unknown Rash Verified 08/15/24 09:11 clavulanic acid Allergy Unknown RASH Verified 08/15/24 09:11 fentanyl AdvReac Unknown very Verified 08/15/24 09:11 emotional crying levofloxacin AdvReac Unknown Nausea And Verified 08/15/24 09:11 Vomiting PMFSH Past Medical History Medical History Diabetes CKD (chronic kidney disease) Patient on peritoneal dialysis HTN (hypertension) Type 2 diabetes mellitus Thrombocytopenia Chronic anemia Cytomegalovirus Gastroesophageal reflux disease Hypertension End-stage renal disease on hemodialysis Wilm's tumor of right kidney Arthritis Hyperlipidemia Renal transplant recipient Failed transplant now on hemodialysis. Surgical History Surgical History History of hysterectomy History of cholecystectomy History of appendectomy History of renal transplant (09/2018) History of right nephrectomy As a child for Wilms tumor. Family History Family History Mother Family history of thyroid disease Family history of osteoporosis Depression Hypertension Family history of elevated blood lipids Family history of arthritis Family history of chronic obstructive pulmonary disease Family history of Alzheimer's disease Family history of atrial fibrillation Sibling Family history of thyroid disease Family history of hypercholesterolemia Hypertension Father Family history of hypercholesterolemia Hypertension Family history of cardiovascular disease Family history of coronary artery disease Social History Social History Social History: Surrogate medical decision maker: Vitaly Casey, spouse. Code status: Full code. Smoking status: Never smoker Second hand tobacco smoke exposure: No Alcohol intake: current Alcohol use details: Occasional Substance use: never Substance use type: does not use Lack of Transportation: No Lack of Food: Never True Current Housing: I Have Housing Concerned About Future Housing: No Difficulty Paying Gas/Electric Bills: No Difficulty Paying for Meds: No Currently Unemployed: No Education: High School Diploma/GED Difficulty w/ Childcare or Family Care: No Living arrangements: alone Additional living arrangements comments: Lives in [place] with spouse. 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 Spiritual care concerns: No Exam Narrative: APPEARANCE: Ill-appearing Head: atraumatic. EYES: EOMI, NOSE: Atraumatic NECK: Trachea midline RESPIRATORY: No increased rate of breathing clear to auscultation CARDIOVASCULAR: tachycardic ABDOMINAL: soft nontender no guarding rebound, peritoneal dialysis catheter in place MUSCULOSKELETAl: No obvious deformities NEURO: Alert. Moving 4/4 extremities SKIN:: Warm, dry. Normal color PSYCHIATRIC: Normal affect Course Vital Signs Vital signs: Vital Signs Temperature 100.7 F H 12/31/24 19:25 Pulse Rate 128 H 09/24/24 19:25 Respiratory Rate 20 09/24/24 19:25 Blood Pressure 173/90 H 09/24/24 19:25 Pulse Oximetry 98 09/24/24 19:25 Temperature 99.6 F 09/24/24 22:23 Pulse Rate 121 H 09/24/24 22:23 Respiratory Rate 24 H 09/24/24 22:23 Blood Pressure 130/87 09/24/24 22:23 Pulse Oximetry 95 09/24/24 22:23 Medical Decision Making MDM Narrative Medical decision making narrative: -Course: 64-year-old female presenting with altered mental status. Patient is tachycardic and febrile on arrival. Given a 30 cc kg bolus and started on broad-spectrum antibiotics while completing her workup. Given rectal Tylenol. Sepsis workup showed a transplanted kidney in the pelvis with fat stranding. This kidney is no longer functional and the patient is on peritoneal dialysis Her urine is not indicative infection. Her chest x-ray is clear no viral swabs are negative. Review of previous infection shows that she has multi-drug resistant E coli. cefepime was switched to meropenem. Patient be admitted to the hospital for further management of her sepsis. -DDX includes but is not limited to: sepsis, UTI dehydration pneumonia bacteremia -Co-morbidities complicating care: end-stage renal disease on peritoneal dialysis -Independent interpretation of studies: white count 18.5. Hemoglobin 9 9 and creatinine elevated. Patient missed peritoneal dialysis last night COVID/FLu swabs negative -Discussion of Management/Consultants:Radha Vital Signs Vital Signs: Vital Signs Temperature 100.7 F H 09/24/24 19:25 Pulse Rate 128 H 09/24/24 19:25 Respiratory Rate 20 09/24/24 19:25 Blood Pressure 173/90 H 09/24/24 19:25 Pulse Oximetry 98 09/24/24 19:25 Temperature 99.6 F 09/24/24 22:23 Pulse Rate 121 H 09/24/24 22:23 Respiratory Rate 24 H 09/24/24 22:23 Blood Pressure 130/87 09/24/24 22:23 Pulse Oximetry 95 09/24/24 22:23 Lab Data 09/24/24 21:11 09/24/24 21:11 Labs: Lab Results 09/24/24 09/24/24 09/24/24 Range/Units 19:43 21:11 21:19 WBC 18.5 H (4.5-10.0) K/mm3 RBC 3.37 L (4.2-5.4) M/mm3 Hgb 9.9 L (12.0-15.0) g/dL Hct 32.3 L (37.0-47.0) % MCV 95.8 (80-100) fl MCH 29.4 (26-34) pg MCHC 30.7 L (32-36) g/dl RDW 20.3 H (11.5-14.5) % Plt Count 110 L (150-375) k/mm3 MPV 11.1 H (7.4-10.4) fl Immature Gran % (Auto) Not Reportable Neut % (Auto) Not Reportable Lymph % (Auto) Not Reportable [place] % (Auto) Not Reportable Eos % (Auto) Not Reportable Baso % (Auto) Not Reportable Lymph # (Auto) Not Reportable [place] # (Auto) Not Reportable Eos # (Auto) Not Reportable Baso # (Auto) Not Reportable Abs Immat Gran (auto) Not Reportable Absolute Neuts (auto) Not Reportable Absolute Nucleated RBC Not Reportable Total Counted 100 Neutrophils % (Manual) 88 H (46-73) % Band Neutrophils % 4 (0-6) % Lymphocytes % (Manual) 2 L (18-44) % Monocytes % (Manual) 6 (3-9) % Nucleated RBC % Not Reportable Abs Neuts (Manual) 17.02 H (1.7-7.2) K/mm3 Abs Lymphs (Manual) 0.37 L (1.1-4.5) K/mm3 Abs Monocytes (Manual) 1.11 H (0.1-0.90) K/mm3 Platelet Estimate Decreased (Adequate) Anisocytosis 1+ Ovalocytes 1+ Schistocytes None seen PT 17.6 H (11.1-14.7) Seconds INR 1.4 APTT 33.6 (22.3-36.8) Seconds Sodium 130 L (137-145) mmol/L Potassium 4.8 (3.4-5.0) mmol/L Chloride 102 (98-107) mmol/L Carbon Dioxide 19 L (22-30) mmol/L Anion Gap 9 (4-12) mmol/L BUN 45 H D (7-17) mg/dL Creatinine 10.40 H (0.7-1.0) mg/dL Estim Creat Clear Calc Not Reportable Estimated GFR 4 L (59 - ) Glucose 176 H (65-110) mg/dL Lactic Acid 2.3 H (0.7-2.0) mmol/L Calcium 9.0 (8.4-10.2) mg/dL Phosphorus 7.5 H (2.5-4.5) mg/dL Magnesium 1.5 L (1.6-2.3) mg/dL Total Bilirubin 0.9 (0.2-1.3) mg/dL AST 26 (14-36) U/L ALT 30 (6-35) U/L Alkaline Phosphatase 89 (38-126) U/L Troponin I 0.193 H* (0.000-0.034) ng/mL NT-Pro-B Natriuret Pep > 77033 H (19.9-100) pg/mL Total Protein 6.0 L (6.3-8.2) g/dL Albumin 3.1 L (3.5-5.1) g/dL Lipase 30 (23-300) U/L TSH (Reflex) 1.290 (0.465-4.68) uIU/mL Urine Color Yellow (Yellow) Urine Appearance Clear (Clear) Urine pH 6.5 (5.0-9.0) Ur Specific [place] 1.017 (1.001-1.035) Urine Protein 4+ H (Negative) mg/dL Urine Glucose (UA) 2+ H (Negative) mg/dL Urine Ketones 1+ H (Negative) mg/dL Ur Blood (Man) 1+ H (Negative) Urine Nitrate Negative (Negative) Urine Bilirubin Negative (Negative) Urine Urobilinogen 0.2 (<2.0) mg/dL Add Ur Microanalysis Reviewed Leukocyte Esterase Rfl Negative (Negative) SAEID/UL Urine RBC 3-5 H (0-2) /hpf Urine WBC 0-5 (0-3) /hpf Ur Squamous Epith Cells None seen (Few) /hpf Urine Bacteria None seen /hpf Urine Casts 3-5 Urine Opiates Screen Negative (Negative) Urine Methadone Screen Negative (Negative) Ur Barbiturates Screen Negative (Negative) Ur Phencyclidine Scrn Negative (Negative) Ur Amphetamine Screen Negative (Negative) U Benzodiazepines Scrn Negative (Negative) Urine Cocaine Screen Negative (Negative) U Cannabinoids Screen Negative (Negative) Ethyl Alcohol < 10 (<10) mg/dL Influenza A (RT-PCR) Negative (Negative) Influenza B (RT-PCR) Negative (Negative) RSV (RT-PCR) Negative (Negative) SARS-CoV-2 RNA (RT-PCR) Negative (Negative) 09/24/24 Range/Units 22:53 WBC (4.5-10.0) K/mm3 RBC (4.2-5.4) M/mm3 Hgb (12.0-15.0) g/dL Hct (37.0-47.0) % MCV (80-100) fl MCH (26-34) pg MCHC (32-36) g/dl RDW (11.5-14.5) % Plt Count (150-375) k/mm3 MPV (7.4-10.4) fl Immature Gran % (Auto) Neut % (Auto) Lymph % (Auto) [place] % (Auto) Eos % (Auto) Baso % (Auto) Lymph # (Auto) [place] # (Auto) Eos # (Auto) Baso # (Auto) Abs Immat Gran (auto) Absolute Neuts (auto) Absolute Nucleated RBC Total Counted Neutrophils % (Manual) (46-73) % Band Neutrophils % (0-6) % Lymphocytes % (Manual) (18-44) % Monocytes % (Manual) (3-9) % Nucleated RBC % Abs Neuts (Manual) (1.7-7.2) K/mm3 Abs Lymphs (Manual) (1.1-4.5) K/mm3 Abs Monocytes (Manual) (0.1-0.90) K/mm3 Platelet Estimate (Adequate) Anisocytosis Ovalocytes Schistocytes PT (11.1-14.7) Seconds INR APTT (22.3-36.8) Seconds Sodium (137-145) mmol/L Potassium (3.4-5.0) mmol/L Chloride (98-107) mmol/L Carbon Dioxide (22-30) mmol/L Anion Gap (4-12) mmol/L BUN (7-17) mg/dL Creatinine (0.7-1.0) mg/dL Estim Creat Clear Calc Estimated GFR (59 - ) Glucose (65-110) mg/dL Lactic Acid (0.7-2.0) mmol/L Calcium (8.4-10.2) mg/dL Phosphorus (2.5-4.5) mg/dL Magnesium (1.6-2.3) mg/dL Total Bilirubin (0.2-1.3) mg/dL AST (14-36) U/L ALT (6-35) U/L Alkaline Phosphatase (38-126) U/L Troponin I Pending (0.000-0.034) ng/mL NT-Pro-B Natriuret Pep (19.9-100) pg/mL Total Protein (6.3-8.2) g/dL Albumin (3.5-5.1) g/dL Lipase (23-300) U/L TSH (Reflex) (0.465-4.68) uIU/mL Urine Color (Yellow) Urine Appearance (Clear) Urine pH (5.0-9.0) Ur Specific [place] (1.001-1.035) Urine Protein (Negative) mg/dL Urine Glucose (UA) (Negative) mg/dL Urine Ketones (Negative) mg/dL Ur Blood (Man) (Negative) Urine Nitrate (Negative) Urine Bilirubin (Negative) Urine Urobilinogen (<2.0) mg/dL Add Ur Microanalysis Leukocyte Esterase Rfl (Negative) SAEID/UL Urine RBC (0-2) /hpf Urine WBC (0-3) /hpf Ur Squamous Epith Cells (Few) /hpf Urine Bacteria /hpf Urine Casts Urine Opiates Screen (Negative) Urine Methadone Screen (Negative) Ur Barbiturates Screen (Negative) Ur Phencyclidine Scrn (Negative) Ur Amphetamine Screen (Negative) U Benzodiazepines Scrn (Negative) Urine Cocaine Screen (Negative) U Cannabinoids Screen (Negative) Ethyl Alcohol (<10) mg/dL Influenza A (RT-PCR) (Negative) Influenza B (RT-PCR) (Negative) RSV (RT-PCR) (Negative) SARS-CoV-2 RNA (RT-PCR) (Negative) Critical Care Time Critical Care Time Critical Care Time: Yes Total Critical Care Time: 35 Discharge Plan Discharge Clinical Impression: Sepsis, MDRO (multiple drug resistant organisms) resistance, End-stage renal disease (ESRD) Patient Disposition: Still a Patient Condition: Serious Patient Language: Belarusian Prescriptions: No Action bumetanide 2 mg tablet 2 mg PO BID [place]-Carol 0.8 mg tablet 1 tablet PO DAILY calcium acetate(phosphat bind) 667 mg capsule 667 mg PO 6XD albuterol sulfate 90 mcg/actuation HFA aerosol inhaler 2 inh inhalation QID PRN (Reason: shortness of breath or wheezing) Qty: 8.5 0RF trazodone 50 mg tablet 50 mg PO DAILY benzonatate 200 mg capsule 200 mg PO DIRECTED nifedipine 30 mg tablet extended release 30 mg PO DAILY allopurinol 100 mg tablet 100 mg PO DIRECTED temazepam 7.5 mg capsule 7.5 mg PO DAILY alprazolam 0.5 mg tablet 0.5 mg PO PRN PRN (Reason: Anxiety) lansoprazole 30 mg capsule,delayed release(DR/EC) 30 mg PO DAILY metoprolol succinate 25 mg tablet extended release 24 hr 25 mg PO DAILY nifedipine 60 mg tablet extended release 60 mg PO DAILY cyclobenzaprine 5 mg tablet 5 mg PO DIRECTED rosuvastatin 20 mg tablet 20 mg PO DAILY Januvia 25 mg tablet 25 mg PO DAILY sevelamer carbonate 800 mg tablet 800 mg PO DIRECTED prednisone 20 mg tablet 40 mg PO DAILY 5 Days Qty: 10 0RF albuterol sulfate 90 mcg/actuation HFA aerosol inhaler 2 inh inhalation QID PRN (Reason: shortness of breath or wheezing) Qty: 8.5 0RF Januvia 25 mg tablet 25 mg PO DAILY allopurinol 100 mg tablet 150 mg PO DAILY calcitriol 0.25 mcg capsule 0.25 mcg PO DAILY cinacalcet 30 mg tablet 30 mg PO BID lisinopril 40 mg Tablet 40 mg PO DAILY trazodone 50 mg Tablet 50 mg PO HS cyclobenzaprine 5 mg tablet 5 mg PO HS alprazolam [Xanax] 0.25 mg Tablet 0.25 mg PO HS PRN (Reason: Sleep) aspirin 81 mg tablet,delayed release (DR/EC) 81 mg PO DAILY rosuvastatin 20 mg tablet 20 mg PO DAILY nifedipine 30 mg Tablet Extended Release 60 mg PO BID cholecalciferol (vitamin D3) 100 mcg (4,000 unit) Tablet 100 mcg PO DAILY metoprolol succinate 50 mg tablet extended release 24 hr 25 mg PO DAILY lansoprazole 30 mg capsule,delayed release(DR/EC) 30 mg PO BID doxazosin 1 mg tablet 4 mg PO BID Qty: 60 0RF Follow-up/Referrals: Compa Sam MD [Primary Care Provider] -
[2024-09-24 23:34] LABS: Troponin I 0.492 ng/mL (0.000-0.034)
[2024-09-24 23:37] VITALS: TEMP 37.7
[2024-09-24 23:37] LABS: pH ABG 7.446 (7.350-7.450)
[2024-09-24 23:38] LABS: PCO2 ABG 22.3 mmHg (35.0-45.0)
[2024-09-24 23:39] LABS: Alveolar/Arterial O2 Gradient 52.7 mmHg; Base Excess ABG -7.5 mEq/l (+/-2.0); Fractional Inspired Oxygen 21 %; Oxygen Saturation ABG 95.2 % (95.0-100.0); Oxyhemoglobin 94.1 % THb (90.0-100.0); PO2 ABG 70.3 mmHg (80.0-100.0); PO2 FiO2 Ratio Arterial Blood 3.35 %; Total Hemoglobin 10.5 g/dL (12.0-18.0)
[2024-09-24 23:40] LABS: Device ROOM AIR; Modified Allen's Test Pass; Site Drawn RIGHT RADIAL
[2024-09-24] MEDS: MEROPENEM 1 GM/NS 100 ML 1 GM/100 ML BAG IVPB (23:46)
[2024-09-25] VITALS (12 sets, daily range): BP systolic 135–160; BP diastolic 78–96; PULSE 11–132; RESP 18–27; TEMP 36.6–37.8; O2SAT 93–100; BMI 29.5
[2024-09-25 00:18] LABS: Reflex Lactic Acid Yes or No Add Lactic
[2024-09-25] MEDS: metroNIDAZOLE 500 MG/ISO 100ML 500 MG/100 ML BAG 100 MG IVPB (00:41)
[2024-09-25] MEDS: VANCOMYCIN 1,500 MG/NS 500 ML 1,500 MG/500 ML BAG 250 MG IVPB (01:51)
--- NOTE | 2024-09-25 03:28 | PC.NURSE ---
Patient's PIV placed by Dr Silva
--- NOTE | 2024-09-25 03:45 | PCRCNOTE ---
Pt was in ED waiting room when ABG was ordered.
--- NOTE | 2024-09-25 03:47 | PCRCNOTE ---
Gas was delayed being ported over due to issues with porting over ABG to [facility].
[2024-09-25] MEDS: LORazepam INJ (*CRX) 2 MG/ML VIAL 0.5 MG IV PUSH (05:29)
[2024-09-25] MEDS: ACETAMINOPHEN 650 MG SUPPOSITORY RECTAL (05:29)
--- NOTE | 2024-09-25 08:10 | P.HP_ITS ---
H&P: HPI History of Present Illness Date/Time: 09/25/24 08:10 Chief Complaint: nausea, emesis, and diarrhea with altered mental status Narrative: History was obtained from spouse as patient was unable to provide. 64-year-old the female with a history of kidney transplant 2018 and failure of transplant 2021 is currently on peritoneal dialysis. She was in her usual state of health until September 23 in the. She developed nausea and emesis. She did complain of mild abdominal pain as well. She was not febrile. She has not eaten anything or had much to drink since then. The following day on September 24 she was too weak to get out of bed. She did not do her peritoneal dialysis on September 23 or September 24. On September 24 she was also confused and had diarrhea once in the bed. Because of this her called 911 and she was transported to [facility] ED. She received a 30 ml/kg fluid bolus as well as Vancomycin and Meropenem due to suspected sepsis. Further evaluation revealed leukocytosis with white count 13870, hemoglobin 9.9 platelet count 58657 creatinine 10.4 sodium 130 potassium 4.8 P 145. Blood sugar was 176. Lactic acid 2.3 phosphorus 7.5 calcium 9.0 magnesium 1.5 LFTs unremarkable troponin initially was 0.193 but increased to 0.49 to on follow-up. ABGs with pH 7.446 pCO2 22.3 PO2 70.3 bicarb 15 O2 saturation 95.2% on room air. CT of chest abdomen and pelvis was remarkable for dialysis catheter and mild stranding around the left kidney. Urinalysis showed 4+ protein 2+ glucose 1+ ketones 1+ blood negative nitrates 3-5 red cells surgical 5 white cells or squamous epithelial cells no bacteria and 3-5 urine casts. Urine drug screen was negative ethyl alcohol level is less than 10 and serology for flu a flu B RSV and SARS CoV 2 were all negative. EKG showed anteroseptal Q-waves and sinus tachycardia. Note that grandchildren more ill with nausea and diarrhea the week before Susie. was ill for 2 days with similar symptoms of nausea and diarrhea on September 16 and . She had no other known exposures to ill individuals recently. She does not get out of the house much and is relatively sedentary. Baseline mental status is oriented to person place time and situation. Other than hypertension, she has no prior history of cardiovascular disease or myocardial infarction. She had a negative chest pain evaluation a few years ago. She monitors her blood sugars regularly and her diabetes has been well controlled on Januvia. Review of Systems Review of Systems: ROS unobtainable: Yes unobtainable due to medical condition [facility] Past Medical History Medical History Diabetes CKD (chronic kidney disease) Patient on peritoneal dialysis HTN (hypertension) Type 2 diabetes mellitus Thrombocytopenia Chronic anemia Cytomegalovirus Gastroesophageal reflux disease Hypertension End-stage renal disease on hemodialysis Wilm's tumor of right kidney Arthritis Hyperlipidemia Renal transplant recipient Failed transplant now on hemodialysis. Surgical History Surgical History History of hysterectomy History of cholecystectomy History of appendectomy History of renal transplant (09/2018) History of right nephrectomy As a child for Wilms tumor. Family History Family History Mother Family history of thyroid disease Family history of osteoporosis Depression Hypertension Family history of elevated blood lipids Family history of arthritis Family history of chronic obstructive pulmonary disease Family history of Alzheimer's disease Family history of atrial fibrillation Sibling Family history of thyroid disease Family history of hypercholesterolemia Hypertension Father Family history of hypercholesterolemia Hypertension Family history of cardiovascular disease Family history of coronary artery disease Social History Social History Social History: Surrogate medical decision maker: Vitaly Casey, spouse. Code status: Full code. Smoking status: Never smoker Second hand tobacco smoke exposure: No Alcohol intake: never Alcohol use details: Occasional Substance use: never Substance use type: does not use Do You Feel Safe in your Home?: Yes Lack of Transportation: No Lack of Food: Never True Current Housing: I Have Housing Concerned About Future Housing: No Difficulty Paying Gas/Electric Bills: No Difficulty Paying for Meds: No Currently Unemployed: No Education: Associate Degree Difficulty w/ Childcare or Family Care: No Living arrangements: alone Additional living arrangements comments: Lives in [place] with spouse. 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 Spiritual care concerns: No Meds Home Medications and Allergies Home Medications ?Medication ?Instructions ?Recorded ?Confirmed ?Type aspirin 81 mg tablet,delayed 81 mg PO DAILY 10/24/19 09/25/24 History release allopurinol 100 mg tablet 150 mg PO DAILY 07/22/22 09/25/24 History calcitriol 0.25 mcg capsule 0.25 mcg PO DAILY 07/22/22 09/25/24 History cinacalcet 30 mg tablet 30 mg PO BID 07/22/22 09/25/24 History cholecalciferol (vitamin D3) 100 100 mcg PO DAILY 08/09/22 09/25/24 History mcg (4,000 unit) tablet metoprolol succinate 50 mg 50 mg PO BID 08/09/22 09/25/24 History tablet,extended release 24 hr nifedipine 30 mg tablet,extended 60 mg PO BID 08/09/22 09/25/24 History release albuterol sulfate 90 mcg/actuation 2 inh inhalation QID PRN shortness 12/02/23 09/25/24 Rx aerosol inhaler of breath or wheezing #8.5 grams bumetanide 2 mg tablet 2 mg PO DAILY 12/02/23 09/25/24 History calcium acetate(phosphat bind) 667 667 mg PO 6XD 12/02/23 09/25/24 History mg capsule vitamin B complex-vitamin C-folic 1 tablet PO DAILY 12/02/23 09/25/24 History acid 0.8 mg tablet ([place]) cyclobenzaprine 5 mg tablet 5 mg PO TID PRN muscle spasm 01/15/24 09/25/24 History trazodone 50 mg tablet 50 mg PO HS 01/15/24 09/25/24 History lansoprazole 30 mg capsule,delayed 30 mg PO BID 07/07/24 09/25/24 History release nifedipine 60 mg tablet,extended 60 mg PO BID 07/07/24 09/25/24 History release rosuvastatin 20 mg tablet 20 mg PO DAILY 07/07/24 09/25/24 History sevelamer carbonate 800 mg tablet 800 mg PO TID 07/07/24 09/25/24 History sitagliptin phosphate 25 mg tablet 25 mg PO DAILY 07/07/24 09/25/24 History (Januvia) temazepam 7.5 mg capsule 7.5 mg PO DAILY 07/07/24 09/25/24 History doxazosin 1 mg tablet 4 mg PO DAILY 09/25/24 09/25/24 History Allergies Allergy/AdvReac Type Severity Reaction Status Date / Time amoxicillin Allergy Unknown Rash Verified 08/15/24 09:11 clavulanic acid Allergy Unknown RASH Verified 08/15/24 09:11 fentanyl AdvReac Unknown very Verified 08/15/24 09:11 emotional crying levofloxacin AdvReac Unknown Nausea And Verified 08/15/24 09:11 Vomiting Vital Signs Vital Signs - 24 hr 09/24/24 19:25 09/24/24 22:23 09/24/24 23:05 Temperature 100.7 F H 99.6 F 100.0 F H Pulse Rate 128 H 121 H 134 H Respiratory Rate 20 24 H 22 H Blood Pressure 173/90 H 130/87 157/99 H Pulse Oximetry 98 95 100 Oxygen Delivery 09/24/24 23:37 09/24/24 23:38 09/25/24 06:25 Temperature 99.9 F H Pulse Rate 127 H Respiratory Rate 24 H Blood Pressure 160/93 H Pulse Oximetry 95 Oxygen Delivery Room Air 09/25/24 07:24 Temperature 100.0 F H Pulse Rate 118 H Respiratory Rate 27 H Blood Pressure 137/91 H Pulse Oximetry 94 Oxygen Delivery Exam Narrative: HEENT: PERRL, sclerae nonicteric, pharyngeal mucosa dry, pink, and intact NECK: No JVD, adenopathy, or thyromegaly CHEST: Clear to auscultation. Normal effort. HEART: NL S1/S2, regular, tachycardic, no murmur. ABDOMEN: BS hypoactive, soft, TENDER DIFFUSELY WITHOUT OBVIOUS GUARDING OR REBOUND, PD CATHETER IN PLACE AND SITE APPEARS CLEAN AND DRY. EXTREMITIES: No cyanosis, edema, or clubbing. DP PULSES 2+ BILATERALLY. No ulcerations of erythema of feet. NEUROLOGIC: CN intact and symmetric to inspection. Tone and strength seem symmetric with spontaneous movement in all 4 extremities and turning over in bed and attempting to get out of bed independently. MUSCULOSKELETAL: No gross deformities to visual inspection. PSYCH: Drowsy. Easily aroused. Response to both verbal and tactile stimuli but does not follow directions. Speech is monosyllabic. H&P: Results Labs Labs: Short CBC 09/24/24 Range/Units 21:11 WBC 18.5 H (4.5-10.0) K/mm3 Hgb 9.9 L (12.0-15.0) g/dL Hct 32.3 L (37.0-47.0) % Plt Count 110 L (150-375) k/mm3 BMP 09/24/24 21:11 Sodium 130 L Potassium 4.8 Chloride 102 Carbon Dioxide 19 L BUN 45 H D Creatinine 10.40 H Glucose 176 H Calcium 9.0 Cardiac Enzymes 09/24/24 09/24/24 Range/Units 21:11 22:53 Troponin I 0.193 H* 0.492 H* D (0.000-0.034) ng/mL Liver Function 09/24/24 Range/Units 21:11 Total Bilirubin 0.9 (0.2-1.3) mg/dL AST 26 (14-36) U/L ALT 30 (6-35) U/L Alkaline Phosphatase 89 (38-126) U/L Albumin 3.1 L (3.5-5.1) g/dL Urine 09/24/24 Range/Units 21:19 Urine Color Yellow (Yellow) Urine Appearance Clear (Clear) Urine pH 6.5 (5.0-9.0) Ur Specific [place] 1.017 (1.001-1.035) Urine Protein 4+ H (Negative) mg/dL Urine Glucose (UA) 2+ H (Negative) mg/dL Imaging CT scan - abdomen: Radiologist's impression: CHEST: Thoracic aorta: No significant dilation. No dissection. Mild arch calcification. Lung parenchyma and airways: Motion artifact. Low lung volumes. Patent airways. Mild dependent atelectasis.. Thoracic inlet, axillae and chest wall: Left chest implanted port which terminates in the right atrium. No thyroid or soft tissue mass. No axillary lymphadenopathy. Mediastinum: No mass or lymphadenopathy. Heart and pericardium: Mild cardiomegaly. No pericardial effusion. Coronary artery calcifications: Absent. Pleura: No effusion or mass. Thoracic bones: No acute osseous finding in the chest. ABDOMEN/PELVIS: Liver: Normal. Biliary/Gallbladder: Gallbladder is absent. Intra and extrahepatic bile duct dilation, similar to prior examination, likely secondary to cholecystectomy. Pancreas: No mass or duct dilation. Spleen: Normal. Adrenals:Stable subcentimeter left adrenal adenoma. Indeterminate density right adrenal nodule, slightly increased in size, likely representing adenoma. Kidneys: The right kidney is absent. Left cortical thinning and scarring. Multiple left renal cysts and indeterminate/hyperdense cysts that are stable, likely representing proteinaceous and hemorrhagic cysts. Stable peripherally calcified left renal cyst GI tract: No small or large bowel dilation. Normal appendix. Diverticulosis without diverticulitis. Mesentery/Peritoneum: Small volume mesenteric fluid. Retroperitoneum: No mass Atherosclerotic abdominal aortic and/or arterial calcifications. Pelvis: Normal urinary bladder. Absent uterus. Peritoneal dialysis catheter in good position. Left lower quadrant transplant kidney with considerable surrounding fat stranding. Soft Tissues: Soft tissues and body wall unremarkable. Abdominopelvic bones: No acute osseous finding in the abdomen/pelvis. Left thoracolumbar stabilization josemanuel, the apparent fracture/disconnection seen in the prior radiograph is not evident, likely due to changes in positioning. IMPRESSION: No acute process detected in the chest. Considerable fat stranding surrounding the left lower quadrant transplant kidney, as can be seen with infection. CT scan - head: Radiologist's impression: No acute intracranial hemorrhage or extra-axial fluid collection. No hydrocephalus, mass, or herniation. No acute ischemic infarct. Unremarkable dural venous sinus attenuation. No acute osseous abnormality. Small right posterior frontal osteoma. The aerated spaces are clear. Mild atrophy. Focal left basal ganglia lacunar infarct. Atherosclerotic intracranial calcification. Bilateral lens replacements. IMPRESSION: No acute intracranial process. Assessment and Plan Assessment and plan (1) Sepsis: Code(s): A41.9 - Sepsis, unspecified organism Status: Acute Assessment and Plan: * Given GI symptoms, abdominal tenderness, and PD catheter, she likely has peritonitis secondary to PD. * Has hx of ESBL E. coli UTI in 2021, however urine now shows no signs of infection although she does have perinephric stranding on CT. * No signs of symptoms of pneumonia, sinusitis, bronchitis (CT C/A/P unrevealing). * No signs of symptoms of cellulitis. * Continue vancomycin and meropenem pending results of blood, urine, peritoneal fluid cultures. * Supportive fluids --> PO as now more awake and able to swallow. * Monitor I/O. (2) Type 2 diabetes mellitus: Qualifiers: Chronic kidney disease stage: on chronic dialysis Diabetes mellitus complication detail: with chronic kidney disease Diabetes mellitus complication status: with kidney complications Diabetes mellitus assisted insulin use: without assisted use Qualified Code(s): E11.22 - Type 2 diabetes mellitus with diabetic chronic kidney disease; N18.6 - End stage renal disease; Z99.2 - Dependence on renal dialysis Code(s): E11.9 - Type 2 diabetes mellitus without complications Status: Chronic Assessment and Plan: * Basal-bolus insulin regimen with glucose goal 140-180 mg/dl. (3) End-stage renal disease (ESRD): Code(s): N18.6 - End stage renal disease Status: Acute Assessment and Plan: * Nephrology consultation for dialysis management (primary genomics scientist is Dr. Hope). (4) Chronic anemia: Code(s): D64.9 - Anemia, unspecified Status: Chronic Assessment and Plan: * Related to ESRD and stable (5) Thrombocytopenia: Code(s): D69.6 - Thrombocytopenia, unspecified Status: Chronic Assessment and Plan: * Worsened from baseline of 165K, likely due to sepsis. * Monitor. (6) Hypertension: Qualifiers: Hypertension type: primary hypertension Qualified Code(s): I10 - Essential (primary) hypertension Code(s): I10 - Essential (primary) hypertension Status: Chronic Assessment and Plan: * Continue Metoprolol, Lisinopril, Nifedipine (7) Abnormal EKG: Code(s): R94.31 - Abnormal electrocardiogram [ECG] [EKG] Status: Acute Assessment and Plan: * Abnormalities in anterior leads more pronounced (poor anterior R-wave progression) than in 202. * Obtain echocardiogram. * Monitor on telemetry. (8) Elevated troponin I level: Code(s): R79.89 - Other specified abnormal findings of blood chemistry Status: Acute Assessment and Plan: * Elevated baseline due to ESRD, however increase is worrisome for demand (type 2) IN due to sepsis. * Increase metoprolol to limit myocardial oxygen demand. * Continue ASA. (9) Hyperlipemia: Code(s): E78.5 - Hyperlipidemia, unspecified Status: Acute Assessment and Plan: * Continue rosuvastatin. (10) Metabolic encephalopathy: Code(s): G93.41 - Metabolic encephalopathy Status: Acute Assessment and Plan: * Clinically due to sepsis. * No focal findings to suggest stroke. * No neck rigidity or tenderness to suggest meningitis or encephalitis. Quality VTE Prophylaxis VTE prophylaxis: pharmacologic ordered (heparin) Hospitalist MIPS Advance Care Plan I have confirmed that the patient's Advanced Care Plan is present, code status is documented, or surrogate decision maker is listed in patient medical record.: Yes Medication Reconciliation I have utilized all available resources to obtain, update and review the patients current medications (includes all prescriptions, OTC, herbals, cannab is, and nutritional supplements).: Yes
[2024-09-25 10:30] LABS: Hemoglobin A1C 5.5 % (<5.7)
--- NOTE | 2024-09-25 11:00 | P.CONNP_ITS ---
Assessment and Plan Assessment and plan (1) End stage renal disease: Code(s): N18.6 - End stage renal disease Status: Resolved Assessment and Plan: * continue nightly CCPD while hospitalized * follow electrolytes, volume status, and clearance * adjust PD presciption as needed (2) Sepsis: Code(s): A41.9 - Sepsis, unspecified organism Status: Acute Assessment and Plan: * suspected on admission with N/V/D + abdominal tenderness + altered mental status * UA not indicative of infection (and hence no urine culture done) * however, has a history of ESBL E.coli UTIs * noted perinephric stranding on admission CT * no evidence of other acute infection by imaging * follow-up on PD fluid analysis * follow cultures * follow trend of hemodynamics (3) Nausea, vomiting, and diarrhea: Code(s): R11.2 - Nausea with vomiting, unspecified; R19.7 - Diarrhea, unspecified Status: Acute Assessment and Plan: * noted by history * possibly secondary to #2 * symptoms better at this time * PRN IV antiemetics * follow symptoms (4) Hypertension: Qualifiers: Hypertension type: primary hypertension Qualified Code(s): I10 - Essential (primary) hypertension Code(s): I10 - Essential (primary) hypertension Status: Chronic Assessment and Plan: * reasonable control at this time * follow trend of hemodynamics (5) Chronic anemia: Code(s): D64.9 - Anemia, unspecified Status: Chronic Assessment and Plan: * due to ESRD * start Retacrit while hospitalized * however, acute illness/infection may limit effectiveness of DANE * follow trend of H/H (6) Type 2 diabetes mellitus: Qualifiers: Chronic kidney disease stage: on chronic dialysis Diabetes mellitus complication detail: with chronic kidney disease Diabetes mellitus complication status: with kidney complications Diabetes mellitus snf insulin use: w [facility] snf use Qualified Code(s): E11.22 - Type 2 diabetes mellitus with diabetic chronic kidney disease; N18.6 - End stage renal disease; Z99.2 - Dependence on renal dialysis Code(s): E11.9 - Type 2 diabetes mellitus without complications Status: Chronic Assessment and Plan: * follow accuchecks * glycemic control per hospitalist I will continue to follow the patient with you while she remains hospitalized and make further recommendations as deemed necessary. Thank you for allowing me to participate in the care of this patient. L History of Present Illness Reason for Consult Consult date: 09/25/24 Reason for consult: end stage renal disease Chief Complaint Chief complaint: altered mental status History of Present Illness Narrative: The patient is a 64-year-old female with a past medical history as outlined below who presented to [facility] Emergency Room due to altered mental status. Most of the history that I have obtained is from review of the electronic medical record as well as discussion with the physicians/nurses involved in the patient's care as well as discussion with the at bedside as the patient does not recall all the events that led to her ER visit. According to the patient's , the patient has been having issues and problems with nausea vomiting and diarrhea for last 2 or 3 days if not longer. As the symptoms continued to progress, she seemed to get weaker and more fatigued in association with confusion. Because of this, she apparently has not done her peritoneal dialysis treatments for the past 2 evenings. Once her mental status changed, her called 911 and EMS subsequently transported her to the emergency room for further assessment. Workup and evaluation emergency room demonstrated the patient to be hemodynamically stable but clearly altered. Routine blood test demonstrated an elevated white blood count of 18.5, relative anemia with a hemoglobin 9.9, slightly low platelet count of 110 and a chemistry that was consistent with her known history of end-stage renal disease without any critical electrolyte abnormalities, normal LFTs, and essentially normal ABG. Her urinalysis showed 4+ protein, 2+ glucose, 1+ ketones, and 1+ blood and viral testing for influenza, RSV, and COVID were negative. Her troponins were mildly elevated but her EKG did not demonstrate any significant ischemic changes. A subsequent CT scan of the chest/abdomen/pelvis head was only significant for mild stranding around her left kidney without any other acute pathology. Her urine drug screen was negative as well. The patient reported that her symptoms are very similar to previous episodes of sepsis and given her laboratory and imaging findings, she received a small IV fluid bolus and after appropriate cultures were obtained, started on broad-spectrum antibiotics for presumed sepsis and subsequently admitted to the hospital for further evaluation therapy. Since her admission to the hospital, her mental status appears to have improved in comparison to presentation to the ER and earlier this morning. Her confirmed this when I came to evaluate the patient. Renal consultation was requested due to her end-stage renal disease. 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 Then in 2016, she developed urosepsis and had left over chronic kidney disease following that insult to her remaining kidney. Her chronic kidney disease progressed until eventually in 2018, she underwent a living related kidney transplantation with the donor being her . Unfortunately, in early 2021, her kidney transplant failed and she had to be started on dialysis. She was on hemodialysis on a Monday, Monday, Monday dialysis schedule under the care of Dr. Quintin Hope at [facility]. She has currently transition to peritoneal dialysis through [facility] and Dr. Hope continues to follow her with this change in treatment modality. He was unable to receive a treatment yesterday evening due to her evaluation in the ER but is scheduled to resume treatment later this evening. She otherwise appears in no apparent distress at the time of my visit. Review of Systems 2 Review of Systems: As per HPI. [facility] Past Medical History Medical History Diabetes CKD (chronic kidney disease) Patient on peritoneal dialysis HTN (hypertension) Type 2 diabetes mellitus Thrombocytopenia Chronic anemia Cytomegalovirus Gastroesophageal reflux disease Hypertension End-stage renal disease on hemodialysis Wilm's tumor of right kidney Arthritis Hyperlipidemia Renal transplant recipient Failed transplant now on hemodialysis. Surgical History Surgical History History of hysterectomy History of cholecystectomy History of appendectomy History of renal transplant (09/2018) History of right nephrectomy As a child for Wilms tumor. Family History Family History Mother Family history of thyroid disease Family history of osteoporosis Depression Hypertension Family history of elevated blood lipids Family history of arthritis Family history of chronic obstructive pulmonary disease Family history of Alzheimer's disease Family history of atrial fibrillation Sibling Family history of thyroid disease Family history of hypercholesterolemia Hypertension Father Family history of hypercholesterolemia Hypertension Family history of cardiovascular disease Family history of coronary artery disease Social History Social History Social History: Surrogate medical decision maker: Vitaly Casey, spouse. Code status: Full code. Smoking status: Never smoker Second hand tobacco smoke exposure: No Alcohol intake: never Alcohol use details: Occasional Substance use: never Substance use type: does not use Do You Feel Safe in your Home?: Yes Lack of Transportation: No Lack of Food: Never True Current Housing: I Have Housing Concerned About Future Housing: No Difficulty Paying Gas/Electric Bills: No Difficulty Paying for Meds: No Currently Unemployed: No Education: Associate Degree Difficulty w/ Childcare or Family Care: No Living arrangements: alone Additional living arrangements comments: Lives in [place] with spouse. 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 Spiritual care concerns: No Meds Home Medications and Allergies Home Medications ?Medication ?Instructions ?Recorded ?Confirmed ?Type aspirin 81 mg tablet,delayed 81 mg PO DAILY 10/24/19 09/25/24 History release allopurinol 100 mg tablet 150 mg PO DAILY 07/22/22 09/25/24 History calcitriol 0.25 mcg capsule 0.25 mcg PO DAILY 07/22/22 09/25/24 History cinacalcet 30 mg tablet 60 mg PO .nightly 07/22/22 09/26/24 History cholecalciferol (vitamin D3) 100 100 mcg PO DAILY 08/09/22 09/25/24 History mcg (4,000 unit) tablet metoprolol succinate 50 mg 50 mg PO BID 08/09/22 09/25/24 History tablet,extended release 24 hr nifedipine 30 mg tablet,extended 60 mg PO BID 08/09/22 09/25/24 History release albuterol sulfate 90 mcg/actuation 2 inh inhalation QID PRN shortness 12/02/23 09/25/24 Rx aerosol inhaler of breath or wheezing #8.5 grams bumetanide 2 mg tablet 2 mg PO DAILY 12/02/23 09/25/24 History vitamin B complex-vitamin C-folic 1 tablet PO DAILY 12/02/23 09/25/24 History acid 0.8 mg tablet ([place]) cyclobenzaprine 5 mg tablet 5 mg PO TID PRN muscle spasm 01/15/24 09/25/24 History trazodone 50 mg tablet 50 mg PO HS 01/15/24 09/25/24 History lansoprazole 30 mg capsule,delayed 30 mg PO BID 07/07/24 09/25/24 History release nifedipine 60 mg tablet,extended 60 mg PO BID 07/07/24 09/25/24 History release rosuvastatin 20 mg tablet 20 mg PO DAILY 07/07/24 09/25/24 History sevelamer carbonate 800 mg tablet 1,600 mg PO TID 07/07/24 09/26/24 History sitagliptin phosphate 25 mg tablet 25 mg PO DAILY 07/07/24 09/25/24 History (Januvia) temazepam 7.5 mg capsule 7.5 mg PO HS 07/07/24 09/26/24 History doxazosin 1 mg tablet 4 mg PO DAILY 09/25/24 09/25/24 History tenapanor 30 mg tablet (Xphozah) 30 mg PO BID phosphate binder 09/26/24 09/26/24 History Allergies Allergy/AdvReac Type Severity Reaction Status Date / Time amoxicillin Allergy Unknown Rash Verified 08/15/24 09:11 clavulanic acid Allergy Unknown RASH Verified 08/15/24 09:11 fentanyl AdvReac Unknown very Verified 08/15/24 09:11 emotional crying levofloxacin AdvReac Unknown Nausea And Verified 08/15/24 09:11 Vomiting Vital Signs Vital Signs Temp Pulse Resp BP Pulse Ox O2 Del Method 09/25/24 11:40 98.7 F 11 L 22 H 135/96 H 98 09/25/24 11:27 Room Air 09/25/24 07:24 100.0 F H 118 H 27 H 137/91 H 94 09/25/24 06:25 127 H 24 H 160/93 H 95 09/24/24 23:38 Room Air 09/24/24 23:37 99.9 F H 09/24/24 23:05 100.0 F H 134 H 22 H 157/99 H 100 09/24/24 22:23 99.6 F 121 H 24 H 130/87 95 09/24/24 19:25 100.7 F H 128 H 20 173/90 H 98 Exam 2 Narrative: GENERAL APPEARANCE: well developed well nourished male/female in no acute distress HEENT: normocephalic, atraumatic, normal conjunctiva and sclera, nares patient NECK: no lymphadenopathy, thyromegaly, or JVD MOUTH: normal lips, teeth, and gums CARDIOVASCULAR: tachcardicRRR, normal S1 and S2, no rub detected RESPIRATORY: clear to auscultation bilaterally ABDOMEN: soft, +TTP nondistended, positive bowel sounds present; PD catheter in place EXTREMITIES: no evidence of cyanosis, clubbing, or edema NEUROLOGICAL: alert and oriented x 3; CN II - XII intact bilaterally; no focal deficits noted Results Lab Results 09/29/24 04:55 09/29/24 04:55 Lab results: Most recent lab results ABG pH 7.446 (7.350-7.450) 09/24/24 20:02 ABG pCO2 22.3 mmHg (35.0-45.0) L* 09/24/24 20:02 ABG pO2 70.3 mmHg (80.0-100.0) L 09/24/24 20:02 ABG HCO3 15.0 mEq/l (22.0-26.0) L 09/24/24 20:02 ABG O2 Saturation 95.2 % (95.0-100.0) 09/24/24 20:02 Calcium 9.0 mg/dL (8.4-10.2) 09/24/24 21:11 Phosphorus 7.5 mg/dL (2.5-4.5) H 09/24/24 21:11 Magnesium 1.5 mg/dL (1.6-2.3) L 09/24/24 21:11
[2024-09-25] MEDS: HEPARIN SODIUM 5,000 UNITS/ML VIAL 5000 UNITS SUB-Q ×2 (11:22→20:21)
[2024-09-25 11:28] LABS: Glucose Point of Care 128 mg/dl (65-105)
[2024-09-25 13:07] LABS: Estimated Glomerular Filt Rate 4
--- NOTE | 2024-09-25 14:27 | ADMGEN ---
This patient, Brandy Casey, was admitted to IMU Room 232-01. Patient/family oriented to hospital policies and general routines including ID bracelet, bed and alarms, visiting hours, pain management, procedures, bathroom and other care routines, personal items, smoking policy, room service/diet, and visiting hours. Information on how to activate the Rapid Response Team has been discussed. Patient/Family are encouraged to report perceived risks to care and to ask questions if they do not understand what they are told or what they should do.
[2024-09-25 16:42] LABS: Glucose Point of Care 112 mg/dl (65-105)
[2024-09-25] MEDS: NIFEdipine 30 MG TAB.ER.24 60 MG PO (17:51)
[2024-09-25] MEDS: SEVELAMER CARBONATE 800 MG TABLET PO (17:51)
[2024-09-25] MEDS: CALCIUM ACETATE 667 MG TABLET PO (17:51)
[2024-09-25] MEDS: CINACALCET 30 MG TABLET PO (17:51)
[2024-09-25] MEDS: ACETAMINOPHEN 325 MG TABLET 650 MG PO (18:30)
[2024-09-25 19:25] LABS: MRSA (PCR) NOT DETECTED (NOT DETECTE)
[2024-09-25] MEDS: INSULIN GLARGINE (*BKC) 100 UNITS/ML 12 UNITS SUB-Q (20:22)
[2024-09-25] MEDS: METOPROLOL SUCCINATE EXT REL 50 MG TABCR PO (20:22)
[2024-09-25] MEDS: PANTOPRAZOLE 40 MG TABLET PO (20:23)
[2024-09-25 21:17] LABS: Glucose Point of Care 253 mg/dl (65-105)
[2024-09-26] VITALS (18 sets, daily range): BP systolic 103–131; BP diastolic 63–84; PULSE 82–115; RESP 18–24; TEMP 36.5–37.9; O2SAT 94–100
--- NOTE | 2024-09-26 | ECHO_ITS ---
Patient Info Name: Brandy Casey Age: 64 years : 1960 Gender: Female Ht: 63 in Wt: 177 lbs BSA: 1.92 m2 HR: 82 bpm BP: 124 / 72 mmHg Heart Rhythm: Sinus Rhythm Technical Quality: Good Exam Date: 09/26/2024 8:44 AM Exam Location: Echo Lab Exam Room: [facility] Patient Status: Inpatient Admit Date: 09/25/2024 Staff Ordering Physician: Akash Fraser MD Forestry Support Specialist: Nimo Vazquez RDCS Attending Provider: Jerald Marinelli MD Referring Physician: Bria QUINTANA; Exam Type: CA echo dop color flow w con Study Info Complete two-dimentional, color flow and Doppler transthoracic echocardiogram is performed with agitated saline and with contrast to opacify the left ventricle and to improve the delineation of the left ventricle endocardial borders. Summary 1. There is mild eccentric mitral valve regurgitation. 2. There is mild tricuspid valve regurgitation. 3. Normal inferior vena cava with >50% collapse upon inspiration consistent with normal right atrial pressure, 3 mmHg. 4. No pulmonary hypertension, estimated pulmonary arterial systolic pressure is 25 mmHg. 5. Left ventricular chamber dimension is normal. 6. Left ventricular systolic function is severely reduced, estimated at 30-35%. 7. There is no increased left ventricular wall thickness. 8. Left ventricular wall motion shows hypokinesis of mid-distal ant-lat, inf-septal and apical segments. Base move well. 9. The left ventricular diastolic function is normal. 10. Right ventricular chamber dimension is normal. 11. Right ventricular systolic function is normal. Recommendations * Echo findings suggestive of Takotsubo cardiomyopathy. However LAD ds cannot be rule out. Left Ventricle Left ventricular chamber dimension is normal. Left ventricular systolic function is severely reduced, estimated at 30-35%. There is no increased left ventricular wall thickness. Left ventricular wall motion shows hypokinesis of mid-distal ant-lat, inf-septal and apical segments. Base move well. The left ventricular diastolic function is normal. Right Ventricle Right ventricular chamber dimension is normal. Right ventricular systolic function is normal. Left Atria Left atrial chamber dimension is normal. Right Atria Right atrial chamber dimension is normal. Aortic Valve The aortic valve is trileaflet. There is mild aortic valve sclerosis. There is no aortic valve stenosis. There is no aortic valve regurgitation. Pulmonic Valve The pulmonic valve is normal. There is no pulmonic regurgitation. Mitral Valve The mitral valve has normal leaflets. There is no mitral valve stenosis. There is mild eccentric mitral valve regurgitation. Tricuspid Valve The tricuspid valve leaflets are normal. There is no significant tricuspid valve stenosis. There is mild tricuspid valve regurgitation. No pulmonary hypertension, estimated pulmonary arterial systolic pressure is 25 mmHg. Pericardium/Pleural The pericardium appears normal. There is no pericardial effusion. Inferior Vena Cava Normal inferior vena cava with >50% collapse upon inspiration consistent with normal right atrial pressure, 3 mmHg. Aorta The aortic root size at the sinus of Valsalva is normal. The prox ascending aorta size is normal. Left Ventricular Outflow Tract Name Value Normal LVOT 2D LVOT Diameter 2.26 cm LVOT Doppler LVOT Peak Gradient 4 mmHg LVOT Mean Gradient 2 mmHg LVOT VTI 18.00 cm LVOT VTI/AV VTI Ratio 0.67 LVOT Stroke Volume 71.92 ml LVOT CO 7.03 l/min LVOT CI 3.66 L/min/m2 Pulmonic Valve Name Value Normal PV Doppler PV Peak Gradient 3 mmHg PV Regurgitation Doppler DE Peak End Diastolic Velocity 121.64 cm/s Mitral Valve Name Value Normal MV Doppler MV Peak Gradient 4 mmHg MV Mean Gradient 2 mmHg MV Decel [place] 459.06 cm/s2 MV PHT 0 s MV Area (PHT) 3.52 cm2 4.00-5.00 MV Area (Cont Eq VTI) 3.52 cm2 MV Regurgitation Doppler MR Peak Gradient 87 mmHg MV Diastolic Function MV E Peak Velocity 99.06 cm/s MV A Peak Velocity 77.21 cm/s MV E/A 1.28 MV Decel Time 0 s MV Annular TDI MV E/e' (Septal) 28.04 <=8.00 MV E/e' (Lateral) 18.50 <=8.00 MV E/e' (Average) 23.27 Tricuspid Valve Name Value Normal TV Regurgitation Doppler TR Peak Velocity 233.59 cm/s TR Peak Gradient 19 mmHg Estimated PAP/RSVP RA Pressure 3 mmHg <=5 PA Systolic Pressure 25 mmHg <36 RV Systolic Pressure 25 mmHg <36 Aortic Valve Name Value Normal AV Doppler AV Peak Velocity 145.64 cm/s AV Peak Gradient 8 mmHg AV Mean Gradient 5 mmHg AV VTI 27.05 cm AV Area (Cont Eq VTI) 2.66 cm2 >=3.00 AV Area (Cont Eq Johnny) 2.70 cm2 AV Regurgitation 2D LVOT Area 3.99 cm2 Ventricles Name Value Normal LV Dimensions 2D/MM IVS Diastolic Thickness (2D) 0.89 cm 0.60-1.00 LVID Diastole (2D) 5.58 cm 3.80-5.20 LVIW Diastolic Thickness (2D) 0.94 cm 0.60-0.90 LVID Systole (2D) 4.28 cm 2.20-3.50 LVOT Diameter 2.26 cm LV Mass (2D Cubed) 194.64 g 67.00-162.00 LV Mass Index (2D Cubed) 0.01 g/cm2 0.00-0.01 Relative Wall Thickness (2D) 0.34 LV Fractional Shortening/Ejection Fraction 2D/MM LV Fractional Shortening (2D) 23 % 27-45 LV EF (2D Teicholz) 46 % 54-74 LV Diastolic Volume (4C MOD) 188.42 ml LV EF (4C MOD) 38 % LV Diastolic Volume (2C MOD) 188.89 ml LV EF (2C MOD) 28 % LV Diastolic Volume (BP MOD) 190.64 ml 46.00-106.00 LV Diastolic Volume Index (BP MOD) 0.10 l/m2 0.03-0.06 LV Systolic Volume (BP MOD) 127.37 ml 14.00-42.00 LV Systolic Volume Index (BP MOD) 0.07 l/m2 0.01-0.02 LV EF (BP MOD) 33 % 54-74 LV Diastolic Length (4C) 8.48 cm LV Systolic Length (4C) 7.88 cm LV Stroke Volume (4C MOD) 72.43 ml Atria Name Value Normal LA Dimensions LA Volume (4C A-L) 70.43 ml LA Volume (BP A-L) 77.30 ml RA Dimensions RA Area (4C) 16.99 cm2 <=18.00 Report Signatures
--- NOTE | 2024-09-26 00:43 | ECG_ITS ---
Test Date: 2024-09-26 00:49:59 Measurements Intervals [place] Rate: 95 P: 35 MD: 171 QRS: 24 QRSD: 92 T: 108 QT: 342 QTc: 431 Interpretive Statements SINUS RHYTHM POSSIBLE LEFT ATRIAL ENLARGEMENT [-0.1mV P WAVE IN V1/V2] ANTEROSEPTAL MYOCARDIAL INFARCTION [40+ ms Q WAVE IN V1-V4], OF INDETERMINATE AGE Compared to ECG 09/24/2024 20:27:53 Sinus tachycardia no longer present Myocardial infarct finding still present Electronically Signed On 09-30-2024 11:16:46 PLUMBING INSTRUCTOR by Miguel Angel Siu M.D.
[2024-09-26] MEDS: ACETAMINOPHEN 325 MG TABLET 650 MG PO (01:05)
[2024-09-26 01:27] LABS: Hematocrit 31.4 % (37.0-47.0); Hemoglobin 9.6 g/dL (12.0-15.0); Mean Corpuscular HGB Conc 30.6 g/dl (32-36); Mean Corpuscular Hemoglobin 29.6 pg (26-34); Mean Corpuscular Volume 96.9 fl (80-100); Mean Platelet Volume 11.3 fl (7.4-10.4); Platelet Count Result 102 k/mm3 (150-375); Red Blood Count 3.24 M/mm3 (4.2-5.4); Red Cell Distribution Width 20.4 % (11.5-14.5); White Blood Count 11.4 K/mm3 (4.5-10.0)
[2024-09-26 01:39] LABS: Alanine Aminotransferase 24 U/L (6-35); Albumin Level 2.9 g/dL (3.5-5.1); Alkaline Phosphatase 87 U/L (38-126); Anion Gap 10 mmol/L (4-12); Aspartate Amino Transferase 29 U/L (14-36); Bilirubin,Total 0.6 mg/dL (0.2-1.3); Blood Urea Nitrogen 51 mg/dL (7-17); Calcium 8.9 mg/dL (8.4-10.2); Carbon Dioxide 20 mmol/L (22-30); Chloride 102 mmol/L (98-107); Estimated CRCL calculation 6 ml/min; Estimated Glomerular Filt Rate 5; Glucose 220 mg/dL (65-110); Phosphorus 6.8 mg/dL (2.5-4.5); Potassium 4.2 mmol/L (3.4-5.0); Sodium 132 mmol/L (137-145)
[2024-09-26 01:43] LABS: Vancomycin Trough 13.8 ug/mL (10.0-20.0)
[2024-09-26 02:11] LABS: Hepatitis B Surface Antigen Negative (Negative)
[2024-09-26 02:29] LABS: Hepatitis B Surface Anti Res Positive
[2024-09-26 02:30] LABS: Band Neutrophils Percent 8 % (0-6); Eosinophils Absolute Manual 0.11 K/mm3 (0.02-0.50); Eosinophils Percent Manual 1 % (0-4); Lymphocytes Absolute Manual 0.22 K/mm3 (1.1-4.5); Monocytes Absolute Manual 0.11 K/mm3 (0.1-0.90); Monocytes Percent Manual 1 % (3-9); Neutrophils Absolute Manual 10.94 K/mm3 (1.7-7.2); Neutrophils Percent Manual 88 % (46-73); Total Cells Counted 100
[2024-09-26 02:32] LABS: Anisocytosis 1+; Burr Cells 1+; Ovalocytes 1+; Platelet Estimate Decreased (Adequate); Schistocytes Rare
[2024-09-26] MEDS: ASPIRIN 81 MG CHEWABLE TABLET 324 MG PO (02:41)
[2024-09-26 04:31] LABS: INR 1.1; Prothrombin Time 14.6 Seconds (11.1-14.7)
[2024-09-26 04:33] LABS: Partial Thromboplastin Time 33.6 Seconds (22.3-36.8)
--- NOTE | 2024-09-26 04:33 | PM.EVENT ---
Event Note Event Note Event Note: I was notified around 49 that patient was having chest pain and dyspnea. RN reports that patient is on peritoneal dialysis and patient reports that she has these episodes of dyspnea and chest discomfort at times while on peritoneal dialysis. However, patient also started having some mild hypoxia. Ordered labs EKG and chest x-ray. I was called with significantly elevated troponin level 1.68. Review of records shows that troponin was 0.4 when she was admitted. I discussed with pharmacist regarding any dosing adjustments necessary for heparin drip related to patient being on peritoneal dialysis and they could not find any dose adjustments. She had been on subcutaneous 5000 units twice daily for VT prophylaxis so we initiated heparin drip at 12 units/kilos per hour and will consult with Cardiology in the morning. Patient did receive 4 baby aspirin. No history of OR in the past. When I spoke with patient she was still having discomfort though it was mostly dyspnea on exertion. Patient was on 2 L per minute via nasal cannula. She was awake alert oriented. Peritoneal dialysis still in process. Heparin drip infusing. No wheezing. Repeat troponins are ordered. EKG was reviewed no STEMI per my independent interpretation. My further assessment of EKG sinus rhythm rate of 95 MO interval 171 QRS duration 92 QTC 431 QRS axis 24. This was compared to prior EKG and there are some differences in QRS formations of V2 and V3 with current EKG appearing less acute. Potentially patient had OR on presentation. We will trend troponin and have Cardiology see patient.
[2024-09-26] MEDS: CALCIUM ACETATE 667 MG TABLET PO ×2 (05:06→08:21)
[2024-09-26] MEDS: HEPARIN SOD/D5W 100 UNITS/ML 25,000 UNITS/250 ML BAG 8 UNITS IV CONT ×2 (05:06→14:58)
--- NOTE | 2024-09-26 07:29 | PC.NURSE ---
0715-IV infiltrated. Heparin gtt pause.
[2024-09-26] MEDS: NIFEdipine 30 MG TAB.ER.24 60 MG PO (08:19)
[2024-09-26] MEDS: CHOLECALCIFEROL 1,000 UNITS TABLET 4000 UNITS PO (08:19)
[2024-09-26] MEDS: ASPIRIN 81 MG ENTERIC TABLET PO (08:19)
[2024-09-26] MEDS: SEVELAMER CARBONATE 800 MG TABLET PO ×3 (08:20→16:58)
[2024-09-26] MEDS: METOPROLOL SUCCINATE EXT REL 50 MG TABCR PO (08:21)
[2024-09-26] MEDS: ROSUVASTATIN 20 MG TABLET PO (08:21)
[2024-09-26] MEDS: allopurinoL 150 MG TABLET PO (08:21)
[2024-09-26] MEDS: calcitrioL 0.25 MCG CAPSULE PO (08:21)
[2024-09-26] MEDS: PANTOPRAZOLE 40 MG TABLET PO ×2 (08:21→21:05)
[2024-09-26] MEDS: VITAMIN B CMPLX/VIT C/FOLIC AC 1 CAPSULE 1 CAP PO (08:22)
[2024-09-26 08:46] LABS: Glucose Point of Care 168 mg/dl (65-105)
[2024-09-26 10:10] LABS: Appearance Peritoneal Fluid Clear (Clear); Color Peritoneal Fluid Colorless (Colorless); Source Peritoneal Fluid Peritoneal Fluid
[2024-09-26 10:12] LABS: Neutrophils Peritoneal Fluid 85 % (0-25)
[2024-09-26 10:13] LABS: Lymphocytes Peritoneal Fluid 5 %; Macrophages Peritoneal Fluid 4 %; Mesothelial Cells Peritoneal Fluid 1 %; Monocytes Peritoneal Fluid 5 %; Nucleated Cells Peritoneal Flu 64 /uL (0-500); RBC Peritoneal Fluid < 2000 /uL (0-10000)
--- NOTE | 2024-09-26 10:50 | PM.IMPN ---
Progress Note: A&P Assessment and Plan (1) Sepsis: Code(s): A41.9 - Sepsis, unspecified organism Status: Acute Assessment and Plan: Given GI symptoms, abdominal tenderness, and PD catheter, she likely has peritonitis secondary to PD. Has hx of ESBL E. coli UTI in 2021, however urine now shows no signs of infection although she does have perinephric stranding on CT. No signs of symptoms of pneumonia, sinusitis, bronchitis (CT C/A/P unrevealing). No signs of symptoms of cellulitis. Peritoneal fluid analysis reviewed and started zosyn DC vancomycin and meropenem pending results of blood, urine, peritoneal fluid cultures. Supportive fluids --> PO as now more awake and able to swallow. Monitor I/O. 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 (3) End-stage renal disease (ESRD): Code(s): N18.6 - End stage renal disease Status: Acute Assessment and Plan: Nephrology consultation for dialysis management (primary accounts payable payroll coordinator is Dr. Hope). (4) Chronic anemia: Code(s): D64.9 - Anemia, unspecified Status: Chronic Assessment and Plan: Related to ESRD and stable (5) Thrombocytopenia: Code(s): D69.6 - Thrombocytopenia, unspecified Status: Chronic Assessment and Plan: Worsened from baseline of 165K, likely due to sepsis. Monitor. (6) Hypertension: Qualifiers: Hypertension type: primary hypertension Qualified Code(s): I10 - Essential (primary) hypertension Code(s): I10 - Essential (primary) hypertension Status: Chronic Assessment and Plan: Continue Metoprolol, Lisinopril, Nifedipine (7) Abnormal EKG: Code(s): R94.31 - Abnormal electrocardiogram [ECG] [EKG] Status: Acute Assessment and Plan: Abnormalities in anterior leads more pronounced (poor anterior R-wave progression) than in 202. Obtain echocardiogram. Monitor on telemetry. (8) Elevated troponin I level: Code(s): R79.89 - Other specified abnormal findings of blood chemistry Status: Acute Assessment and Plan: Elevated baseline due to ESRD, however increase is worrisome for demand (type 2) MO due to sepsis. Increase metoprolol to limit myocardial oxygen demand. Continue ASA. Possible catheterization tomorrow to rule out takotsubo cardiomyopathy Suspicious for pericarditis as well (9) Hyperlipemia: Code(s): E78.5 - Hyperlipidemia, unspecified Status: Acute Assessment and Plan: Continue rosuvastatin. (10) Metabolic encephalopathy: Code(s): G93.41 - Metabolic encephalopathy Status: Acute Assessment and Plan: Clinically due to sepsis. No focal findings to suggest stroke. No neck rigidity or tenderness to suggest meningitis or encephalitis. Subjective Date/time seen: 09/26/24 10:50 Interval history: Patient is currently on peritoneal dialysis. Patient was admitted because of nausea, emesis and abdominal pain. Night team notified her troponin was up trending and was started on heparin drip, EKG shows sinus rhythm, possible left atrial and enlargement, anterior septal MO. discussed with cardiology. Will continue the heparin drip and possible catheterization tomorrow. Discussed with cardiology and agree with possible pericarditis since the patient has chest pain with breathing. One time dose of colchicine was given. Given the reason of peritoneal dialysis patient started on aspirin but later discontinued. Cardiology also wanted to rule out takotsubo cardiomyopathy and patient will undergo cath tomorrow.Patient nasal MRSA is negative and discontinued vancomycin. Patient was previously on meropenem but not sure it was discontinued. Reviewed her peritoneal fluid analysis, because of the possible peritonitis Zosyn is started. Review of Systems Review of Systems: ROS unobtainable: Yes unobtainable due to medical condition Exam Narrative: HEENT: PERRL, sclerae nonicteric, pharyngeal mucosa dry, pink, and intact NECK: No JVD, adenopathy, or thyromegaly CHEST: Clear to auscultation. Normal effort. HEART: NL S1/S2, regular, tachycardic, no murmur. ABDOMEN: BS hypoactive, soft, TENDER DIFFUSELY WITHOUT OBVIOUS GUARDING OR REBOUND, PD CATHETER IN PLACE AND SITE APPEARS CLEAN AND DRY. EXTREMITIES: No cyanosis, edema, or clubbing. DP PULSES 2+ BILATERALLY. No ulcerations of erythema of feet. NEUROLOGIC: CN intact and symmetric to inspection. Tone and strength seem symmetric with spontaneous movement in all 4 extremities and turning over in bed and attempting to get out of bed independently. MUSCULOSKELETAL: No gross deformities to visual inspection. PSYCH: Drowsy. Easily aroused. Response to both verbal and tactile stimuli but does not follow directions. Speech is monosyllabic. Objective Data Vital Signs Vital Signs: Vital Signs - 24 hr 09/25/24 11:27 09/25/24 11:40 09/25/24 12:00 Temperature 98.7 F 98.6 F Pulse Rate 11 L 105 H Respiratory Rate 22 H 24 H Blood Pressure 135/96 H 139/95 H Pulse Oximetry 98 93 Oxygen Delivery Room Air 09/25/24 12:00 09/25/24 12:20 09/25/24 14:00 Temperature 98.6 F Pulse Rate 109 H 106 H 106 H Respiratory Rate 24 H Blood Pressure 136/78 Pulse Oximetry 96 Oxygen Delivery 09/25/24 16:00 09/25/24 16:00 09/25/24 16:00 Temperature 99.1 F Pulse Rate 108 H 110 H Respiratory Rate 20 Blood Pressure 137/85 Pulse Oximetry 93 Oxygen Delivery Room Air 09/25/24 18:00 09/25/24 20:00 09/25/24 20:00 Temperature Pulse Rate 132 H 116 H 116 H Respiratory Rate 18 Blood Pressure Pulse Oximetry 100 Oxygen Delivery Room Air 09/25/24 20:22 09/25/24 20:52 09/25/24 22:00 Temperature 97.8 F Pulse Rate 114 H 124 H 98 Respiratory Rate 18 Blood Pressure 143/91 H Pulse Oximetry 100 Oxygen Delivery 09/26/24 00:00 09/26/24 00:00 09/26/24 00:27 Temperature 97.7 F Pulse Rate 99 99 95 Respiratory Rate 18 18 Blood Pressure 131/84 Pulse Oximetry 100 100 Oxygen Delivery Room Air 09/26/24 02:00 09/26/24 04:00 09/26/24 04:00 Temperature Pulse Rate 100 84 84 Respiratory Rate 20 Blood Pressure Pulse Oximetry 100 Oxygen Delivery Room Air 09/26/24 04:22 09/26/24 06:00 09/26/24 08:00 Temperature 97.8 F 98.7 F Pulse Rate 86 82 97 Respiratory Rate 20 18 Blood Pressure 124/72 103/66 Pulse Oximetry 100 95 Oxygen Delivery 09/26/24 08:21 Temperature Pulse Rate 98 Respiratory Rate Blood Pressure Pulse Oximetry Oxygen Delivery Intake/Output Intake/Output: Intake & Output 09/23/24 09/24/24 09/25/24 09/26/24 23:59 23:59 23:59 23:59 Intake Total 2450 1180 437.2 Output Total 100 300 740 Balance 2350 880 -302.8 Meds/Results Medications: Active Medications Generic Name Dose Route Start Last Admin Trade Name Freq PRN Reason Stop Dose Admin Acetaminophen 650 mg 09/25/24 18:05 09/26/24 01:05 Acetaminophen 325 Mg Tablet PO 650 mg Q6H PRN Administration Mild Pain (1-3) or Fever Albuterol 2 puff 09/25/24 16:39 Albuterol Sulfate (*Sp) Aerosol 1 Puff INHALATION QID PRN shortness of breath or wheezing Allopurinol 150 mg 09/26/24 09:00 09/26/24 08:21 Allopurinol 150 Mg Tablet PO 150 mg DAILY JENNIFER Administration Aspirin 81 mg 09/26/24 09:00 09/26/24 08:19 Aspirin 81 Mg Enteric Tablet PO 81 mg DAILY JENNIFER Administration Calcitriol 0.25 mcg 09/26/24 09:00 09/26/24 08:21 Calcitriol 0.25 Mcg Capsule PO 0.25 mcg DAILY JENNIFER Administration Calcium Acetate 667 mg 09/25/24 18:00 09/26/24 08:21 Calcium Acetate 667 Mg Tablet PO 667 mg 6XD JENNIFER Administration Cinacalcet 60 mg 09/26/24 21:00 Cinacalcet 30 Mg Tablet PO HS JENNIFER Dextrose 12.5 gm 09/25/24 09:22 Dextrose 50% 25 Gm/50 Ml Syringe IV PUSH PRN PRN Hypoglycemia Protocol Doxazosin Mesylate 4 mg 09/26/24 21:00 Doxazosin Mesylate 4 Mg Tablet PO HS JENNIFER Gentamicin Sulfate 1 applic 09/25/24 21:00 09/25/24 20:07 Gentamicin Sulfate 0.1% Cr 15 Gm Tube TOPICAL Not Given QHS JENNIFER Glucagon 1 mg 09/25/24 09:22 Glucagon For Inj 1 Mg Vial IM PRN PRN Hypoglycemia Protocol Glucose 15 gm 09/25/24 09:22 Glucose Oral Gel 15 Gm Of Glucse In 37.5 Gm Tube PO PRN PRN Hypoglycemia Protocol Heparin Sodium (Porcine) 5,000 units 09/25/24 09:25 09/25/24 20:21 Heparin Sodium 5,000 Units/Ml Vial SUB-Q 5,000 units Q12HR JENNFIER Administration Heparin Sodium (Porcine) 4,000 units 09/26/24 03:20 Heparin Sodium 5,000 Units/Ml Vial IV PUSH PRN PRN aPTT less than 55 seconds Heparin Sodium (Porcine) 2,500 units 09/26/24 03:20 Heparin Sodium 5,000 Units/Ml Vial IV PUSH PRN PRN aPTT 55 - 70 seconds Dextrose 1,000 mls @ 100 mls/hr 09/25/24 09:22 Dextrose 5% 1,000 Ml IVPB PRN PRN Hypoglycemia Protocol Heparin Sodium/Dextrose 25,000 units in 250 mls @ 8 mls/hr 09/26/24 03:20 09/26/24 08:50 Heparin Sodium/D5w 100 Units/Ml IV CONT 800 units/hr .Q24H JENNIFER 8 mls/hr Titration Protocol 800 UNITS/HR Vancomycin HCl 750 mg in 250 mls @ 250 mls/hr 09/26/24 10:00 Vancomycin 750 Mg/Ns 250 Ml IVPB 09/26/24 10:59 ONCE ONE Insulin Aspart 2 - 5 units 09/26/24 06:30 09/26/24 08:18 Insulin Aspart (*Bkc) 100 Units/Ml SUB-Q Not Given ACHS [facility] Protocol Insulin Glargine 12 units 09/25/24 21:00 09/25/24 20:22 Insulin Glargine (*Bkc) 100 Units/Ml 0.15 units/kg (12 units) 12 units SUB-Q Administration HS JENNIFER Metoprolol Succinate 50 mg 09/25/24 21:00 09/26/24 08:21 Metoprolol Succinate Ext Rel 50 Mg Tabcr PO 50 mg Q12HR JENNIFER Administration Nifedipine 60 mg 09/25/24 17:00 09/26/24 08:19 Nifedipine 30 Mg Tab.Er.24 PO 60 mg BID JENNIFER Administration Pantoprazole Sodium 40 mg 09/25/24 21:00 09/26/24 08:21 Pantoprazole 40 Mg Tablet PO 40 mg Q12HR JENNIFER Administration Perflutren Lipid Microsphere 0 ml 09/25/24 09:21 Perflutren Lipid Microspheres 1.5 Ml Vial Diluted To 10 Ml Total Volume IV PUSH 09/28/24 09:22 ONCE PRN adequate visualization Protocol Rosuvastatin Calcium 20 mg 09/26/24 09:00 09/26/24 08:21 Rosuvastatin 20 Mg Tablet PO 20 mg DAILY JENNIFER Administration Sevelamer Carbonate 800 mg 09/25/24 17:00 09/26/24 08:20 Sevelamer Carbonate 800 Mg Tablet PO 800 mg TIDWM JENNIFER Administration Vancomycin HCl 1 each 09/24/24 22:23 Vancomycin For Peritoneal Dialysis IVPB PRN PRN Vancomycin Protocol Vitamin B Complex/Folic Acid 1 cap 09/26/24 09:00 09/26/24 08:22 Vitamin B Cmplx/Vit C/Folic Ac 1 Capsule PO 1 cap QAM JENNIFER Administration Vitamin D 4,000 units 09/26/24 09:00 09/26/24 08:19 Cholecalciferol 1,000 Units Tablet PO 4,000 units DAILY JENNIFER Administration Radiology Results: ITS Impressions Head CT 09/24/24 20:52 IMPRESSION: No acute intracranial process. Chest/Abdomen/Pelvis CT 09/24/24 20:56 IMPRESSION: No acute process detected in the chest. Considerable fat stranding surrounding the left lower quadrant transplant kidney, as can be seen with infection. Chest X-Ray 09/26/24 05:25 Impression: Minimal central pulmonary venous congestive change. Stable Mediport. Labs Labs: Laboratory Results - last 24 hr 09/25/24 09/25/24 09/25/24 11:20 12:16 16:31 WBC RBC Hgb Hct MCV MCH MCHC RDW Plt Count MPV Immature Gran % (Auto) Neut % (Auto) Lymph % (Auto) [place] % (Auto) Eos % (Auto) Baso % (Auto) Lymph # (Auto) [place] # (Auto) Eos # (Auto) Baso # (Auto) Abs Immat Gran (auto) Absolute Neuts (auto) Absolute Nucleated RBC Total Counted Neutrophils % (Manual) Band Neutrophils % Lymphocytes % (Manual) Monocytes % (Manual) Eosinophils % (Manual) Nucleated RBC % Abs Neuts (Manual) Abs Lymphs (Manual) Abs Monocytes (Manual) Absolute Eos (Manual) Platelet Estimate Anisocytosis Ovalocytes [place] Cells Schistocytes PT INR APTT Sodium Potassium Chloride Carbon Dioxide Anion Gap BUN Creatinine 9.60 H Estim Creat Clear Calc Not Reportable Estimated GFR 4 L Glucose POC Capillary Glucose 128 H 112 H Calcium Phosphorus Total Bilirubin AST ALT Alkaline Phosphatase Troponin I Total Protein Albumin Peritoneal Source Peritoneal Color Peritoneal Appearance Peritoneal RBC Periton Nuc Cells Periton Neutrophils Periton Lymphocytes Peritoneal Monocytes Periton Mesothelial Periton Macrophages Nasal MRSA (PCR) Vancomycin Trough Hep Bs Antigen Hep Bs Antibody 09/25/24 09/25/24 09/26/24 18:00 20:15 01:19 WBC 11.4 H RBC 3.24 L Hgb 9.6 L Hct 31.4 L MCV 96.9 MCH 29.6 MCHC 30.6 L RDW 20.4 H Plt Count 102 L MPV 11.3 H Immature Gran % (Auto) Not Reportable Neut % (Auto) Not Reportable Lymph % (Auto) Not Reportable [place] % (Auto) Not Reportable Eos % (Auto) Not Reportable Baso % (Auto) Not Reportable Lymph # (Auto) Not Reportable [place] # (Auto) Not Reportable Eos # (Auto) Not Reportable Baso # (Auto) Not Reportable Abs Immat Gran (auto) Not Reportable Absolute Neuts (auto) Not Reportable Absolute Nucleated RBC Not Reportable Total Counted 100 Neutrophils % (Manual) 88 H Band Neutrophils % 8 H Lymphocytes % (Manual) 2.0 L Monocytes % (Manual) 1 L Eosinophils % (Manual) 1 Nucleated RBC % Not Reportable Abs Neuts (Manual) 10.94 H Abs Lymphs (Manual) 0.22 L Abs Monocytes (Manual) 0.11 Absolute Eos (Manual) 0.11 Platelet Estimate Decreased Anisocytosis 1+ Ovalocytes 1+ [place] Cells 1+ Schistocytes Rare PT INR APTT Sodium 132 L Potassium 4.2 Chloride 102 Carbon Dioxide 20 L Anion Gap 10 BUN 51 H Creatinine 8.70 H Estim Creat Clear Calc 6 Estimated GFR 5 L Glucose 220 H POC Capillary Glucose 253 H Calcium 8.9 Phosphorus 6.8 H Total Bilirubin 0.6 AST 29 ALT 24 Alkaline Phosphatase 87 Troponin I Total Protein 6.0 L Albumin 2.9 L Peritoneal Source Peritoneal Color Peritoneal Appearance Peritoneal RBC Periton Nuc Cells Periton Neutrophils Periton Lymphocytes Peritoneal Monocytes Periton Mesothelial Periton Macrophages Nasal MRSA (PCR) Not detected Vancomycin Trough Hep Bs Antigen Hep Bs Antibody 09/26/24 09/26/24 09/26/24 01:20 04:10 04:10 WBC RBC Hgb Hct MCV MCH MCHC RDW Plt Count MPV Immature Gran % (Auto) Neut % (Auto) Lymph % (Auto) [place] % (Auto) Eos % (Auto) Baso % (Auto) Lymph # (Auto) [place] # (Auto) Eos # (Auto) Baso # (Auto) Abs Immat Gran (auto) Absolute Neuts (auto) Absolute Nucleated RBC Total Counted Neutrophils % (Manual) Band Neutrophils % Lymphocytes % (Manual) Monocytes % (Manual) Eosinophils % (Manual) Nucleated RBC % Abs Neuts (Manual) Abs Lymphs (Manual) Abs Monocytes (Manual) Absolute Eos (Manual) Platelet Estimate Anisocytosis Ovalocytes [place] Cells Schistocytes PT 14.6 INR 1.1 APTT Cancelled 33.6 Sodium Potassium Chloride Carbon Dioxide Anion Gap BUN Creatinine Estim Creat Clear Calc Estimated GFR Glucose POC Capillary Glucose Calcium Phosphorus Total Bilirubin AST ALT Alkaline Phosphatase Troponin I 1.680 H* 1.590 H* Total Protein Albumin Peritoneal Source Peritoneal Color Peritoneal Appearance Peritoneal RBC Periton Nuc Cells Periton Neutrophils Periton Lymphocytes Peritoneal Monocytes Periton Mesothelial Periton Macrophages Nasal MRSA (PCR) Vancomycin Trough 13.8 Hep Bs Antigen Negative Hep Bs Antibody Positive 09/26/24 09/26/24 09/26/24 07:05 07:25 08:18 WBC RBC Hgb Hct MCV MCH MCHC RDW Plt Count MPV Immature Gran % (Auto) Neut % (Auto) Lymph % (Auto) [place] % (Auto) Eos % (Auto) Baso % (Auto) Lymph # (Auto) [place] # (Auto) Eos # (Auto) Baso # (Auto) Abs Immat Gran (auto) Absolute Neuts (auto) Absolute Nucleated RBC Total Counted Neutrophils % (Manual) Band Neutrophils % Lymphocytes % (Manual) Monocytes % (Manual) Eosinophils % (Manual) Nucleated RBC % Abs Neuts (Manual) Abs Lymphs (Manual) Abs Monocytes (Manual) Absolute Eos (Manual) Platelet Estimate Anisocytosis Ovalocytes [place] Cells Schistocytes PT INR APTT Sodium Potassium Chloride Carbon Dioxide Anion Gap BUN Creatinine Estim Creat Clear Calc Estimated GFR Glucose POC Capillary Glucose 168 H Calcium Phosphorus Total Bilirubin AST ALT Alkaline Phosphatase Troponin I 1.390 H* Total Protein Albumin Peritoneal Source Peritoneal fluid Peritoneal Color Colorless Peritoneal Appearance Clear Peritoneal RBC < 2000 Periton Nuc Cells 64 Periton Neutrophils 85 H Periton Lymphocytes 5 Peritoneal Monocytes 5 Periton Mesothelial 1 Periton Macrophages 4 Nasal MRSA (PCR) Vancomycin Trough Hep Bs Antigen Hep Bs Antibody Quality VTE Prophylaxis VTE prophylaxis: pharmacologic ordered (heparin) Hospitalist MIPS Advance Care Plan I have confirmed that the patient's Advanced Care Plan is present, code status is documented, or surrogate decision maker is listed in patient medical record.: Yes Medication Reconciliation I have utilized all available resources to obtain, update and review the patients current medications (includes all prescriptions, OTC, herbals, cannabis, and nutritional supplements).: Yes
[2024-09-26] MEDS: VANCOMYCIN 750 MG/NS 250 ML 750 MG/250 ML BAG 250 MG IVPB (12:11)
--- NOTE | 2024-09-26 12:26 | P.PNNP_ITS ---
Progress Note: A&P Assessment and Plan (1) End stage renal disease: Code(s): N18.6 - End stage renal disease Status: Resolved Assessment and Plan: * continue nightly CCPD while hospitalized * follow electrolytes, volume status, and clearance * adjust PD presciption as needed (2) Sepsis: Code(s): A41.9 - Sepsis, unspecified organism Status: Acute Assessment and Plan: * suspected on admission with N/V/D + abdominal tenderness + altered mental status * UA not indicative of infection (and hence no urine culture done) * however, has a history of ESBL E.coli UTIs * noted perinephric stranding on admission CT * no evidence of other acute infection by imaging * PD fluid analysis noted * follow cultures (see #3) * follow trend of hemodynamics (3) Bacteremia: Code(s): R78.81 - Bacteremia Status: Resolved Assessment and Plan: * noted blood cultures with Staphylococcus aureus * source not clear -- possibly from peritonitis (?) * PD fluid analysis noted -- high neutrophils present * HOWEVER, PD fluid sample collected AFTER antibiotics given (so this could reflect partially treated peritonitis) * follow up on PD fluid cultures * repeat blood cultures pending * on antibiotics (4) NSTEMI (non-ST elevated myocardial infarction): Code(s): I21.4 - Non-ST elevation (NSTEMI) myocardial infarction Status: Acute Assessment and Plan: * suspected based on elevated troponins * however, chest pain symptoms are somewhat atypical * on heparin gtt * Cardiology consulted for further assessment (5) Nausea, vomiting, and diarrhea: Code(s): R11.2 - Nausea with vomiting, unspecified; R19.7 - Diarrhea, unspecified Status: Acute Assessment and Plan: * noted by history * possibly secondary to #2 * symptoms better at this time * PRN IV antiemetics * follow symptoms (6) Hypertension: Qualifiers: Hypertension type: primary hypertension Qualified Code(s): I10 - Essential (primary) hypertension Code(s): I10 - Essential (primary) hypertension Status: Chronic Assessment and Plan: * reasonable control at this time * follow trend of hemodynamics (7) Chronic anemia: Code(s): D64.9 - Anemia, unspecified Status: Chronic Assessment and Plan: * due to ESRD * on Retacrit while hospitalized * however, acute illness/infection may limit effectiveness of DANE * follow trend of H/H (8) Type 2 diabetes mellitus: Qualifiers: Chronic kidney disease stage: on chronic dialysis Diabetes mellitus complication detail: with chronic kidney disease Diabetes mellitus complication status: with kidney complications Diabetes mellitus long term care pharmacist insulin use: w [facility] senior living use Qualified Code(s): E11.22 - Type 2 diabetes mellitus with diabetic chronic kidney disease; N18.6 - End stage renal disease; Z99.2 - Dependence on renal dialysis Code(s): E11.9 - Type 2 diabetes mellitus without complications Status: Chronic Assessment and Plan: * follow accuchecks * glycemic control per hospitalist Will continue to follow. Subjective Date/time seen: 09/26/24 12:26 Interval history: Follow-up for end stage renal disease on peritoneal dialysis. Tolerated peritoneal dialysis overnight (CCPD supervised and seen at 12:15PM); chest pain and shortness of breath noted overnight with elevated troponins noted; started on heparin gtt and Cardiology consulted for further evaluation; positive blood culture noted as well; still has chest heaviness at the time of my visit which she attributes to the CXR findings of mild pulmonary edema. Exam 2 Narrative: General: WD/WN female in NAD Heart: normal S1 and S2; no rub Lungs: clear anteriorly; decreased at bases Abdomen: soft, nontender, nondistended, positive bowel sounds Extremities: no cyanosis or clubbing; no edema Skin: warm and dry Objective Data Vital Signs Vital Signs: Vital Signs Temp Pulse Resp BP Pulse Ox O2 Del Method O2 Flow Rate 09/26/24 12:14 99.0 F 96 18 106/63 98 09/26/24 12:00 Room Air 09/26/24 11:45 98.7 F 98 20 131/77 94 09/26/24 10:00 98 09/26/24 08:21 98 09/26/24 08:00 98 09/26/24 08:00 95 Nasal Cannula 2 09/26/24 08:00 98.7 F 97 18 103/66 95 09/26/24 06:00 82 09/26/24 04:22 97.8 F 86 20 124/72 100 09/26/24 04:00 84 09/26/24 04:00 84 20 100 Room Air 09/26/24 02:00 100 09/26/24 00:27 97.7 F 95 18 131/84 100 09/26/24 00:00 99 09/26/24 00:00 99 18 100 Room Air 09/25/24 22:00 98 09/25/24 20:52 97.8 F 124 H 18 143/91 H 100 09/25/24 20:22 114 H 09/25/24 20:00 116 H 09/25/24 20:00 116 H 18 100 Room Air 09/25/24 18:00 132 H Intake/Output Intake/Output: Intake & Output 09/23/24 09/24/24 09/25/24 09/26/24 23:59 23:59 23:59 23:59 Intake Total 2450 1180 954.5 Output Total 100 300 740 Balance 2350 880 214.5 Meds/Results Medications: Active Medications Generic Name Dose Route Start Last Admin Trade Name Freq PRN Reason Stop Dose Admin Acetaminophen 650 mg 09/25/24 18:05 09/26/24 01:05 Acetaminophen 325 Mg Tablet PO 650 mg Q6H PRN Administration Mild Pain (1-3) or Fever Albuterol 2 puff 09/25/24 16:39 Albuterol Sulfate (*Sp) Aerosol 1 Puff INHALATION QID PRN shortness of breath or wheezing Allopurinol 150 mg 09/26/24 09:00 09/26/24 08:21 Allopurinol 150 Mg Tablet PO 150 mg DAILY [facility] Administration Aspirin 81 mg 09/27/24 09:00 Aspirin 81 Mg Enteric Tablet PO QAM [facility] Calcitriol 0.25 mcg 09/26/24 09:00 09/26/24 08:21 Calcitriol 0.25 Mcg Capsule PO 0.25 mcg DAILY [facility] Administration Calcium Acetate 667 mg 09/25/24 18:00 09/26/24 14:39 Calcium Acetate 667 Mg Tablet PO Not Given 6XD [facility] Cinacalcet 60 mg 09/26/24 21:00 Cinacalcet 30 Mg Tablet PO HS [facility] Cyclobenzaprine HCl 5 mg 09/26/24 13:07 Cyclobenzaprine Hcl 5 Mg Tablet PO TID PRN muscle spasm Dextrose 12.5 gm 09/25/24 09:22 Dextrose 50% 25 Gm/50 Ml Syringe IV PUSH PRN PRN Hypoglycemia Protocol Doxazosin Mesylate 4 mg 09/26/24 21:00 Doxazosin Mesylate 4 Mg Tablet PO HS [facility] Gentamicin Sulfate 1 applic 09/25/24 21:00 09/25/24 20:07 Gentamicin Sulfate 0.1% Cr 15 Gm Tube TOPICAL Not Given QHS [facility]ENN[facility] Glucagon 1 mg 09/25/24 09:22 Glucagon For Inj 1 Mg Vial IM PRN PRN Hypoglycemia Protocol Glucose 15 gm 09/25/24 09:22 Glucose Oral Gel 15 Gm Of Glucse In 37.5 Gm Tube PO PRN PRN Hypoglycemia Protocol Heparin Sodium (Porcine) 5,000 units 09/25/24 09:25 09/25/24 20:21 Heparin Sodium 5,000 Units/Ml Vial SUB-Q 5,000 units Q12HR [facility]ENN[facility] Administration Heparin Sodium (Porcine) 4,000 units 09/26/24 13:56 Heparin Sodium 5,000 Units/Ml Vial IV PUSH PRN PRN aPTT less than 55 seconds Heparin Sodium (Porcine) 2,500 units 09/26/24 13:56 Heparin Sodium 5,000 Units/Ml Vial IV PUSH PRN PRN aPTT 55 - 70 seconds Dextrose 1,000 mls @ 100 mls/hr 09/25/24 09:22 Dextrose 5% 1,000 Ml IVPB PRN PRN Hypoglycemia Protocol Heparin Sodium/Dextrose 25,000 units in 250 mls @ 8 mls/hr 09/26/24 14:00 09/26/24 14:58 Heparin Sodium/D5w 100 Units/Ml IV CONT 800 units/hr .Q24H [facility] 8 mls/hr Administration Protocol 800 UNITS/HR Insulin Aspart 2 - 5 units 09/26/24 06:30 09/26/24 12:11 Insulin Aspart (*Bkc) 100 Units/Ml SUB-Q Not Given ACHS [facility] Protocol Insulin Glargine 12 units 09/25/24 21:00 09/25/24 20:22 Insulin Glargine (*Bkc) 100 Units/Ml 0.15 units/kg (12 units) 12 units SUB-Q Administration HS [facility]ENN[facility]ER Pantoprazole Sodium 40 mg 09/25/24 21:00 09/26/24 08:21 Pantoprazole 40 Mg Tablet PO 40 mg Q12HR [facility] Administration Perflutren Lipid Microsphere 0 ml 09/25/24 09:21 Perflutren Lipid Microspheres 1.5 Ml Vial Diluted To 10 Ml Total Volume IV PUSH 09/28/24 09:22 ONCE PRN adequate visualization Protocol Rosuvastatin Calcium 20 mg 09/26/24 09:00 09/26/24 08:21 Rosuvastatin 20 Mg Tablet PO 20 mg DAILY [facility] Administration Sevelamer Carbonate 800 mg 09/25/24 17:00 09/26/24 11:41 Sevelamer Carbonate 800 Mg Tablet PO 800 mg TIDWM [facility] Administration Temazepam 7.5 mg 09/26/24 21:00 Temazepam (*Crx) 7.5 Mg Capsule PO 10/26/24 20:59 HS [facility]ENN[facility] Trazodone HCl 50 mg 09/26/24 21:00 Trazodone Hcl 50 Mg Tablet PO HS [facility] Vancomycin HCl 1 each 09/24/24 22:23 Vancomycin For Peritoneal Dialysis IVPB PRN PRN Vancomycin Protocol Vitamin B Complex/Folic Acid 1 cap 09/26/24 09:00 09/26/24 08:22 Vitamin B Cmplx/Vit C/Folic Ac 1 Capsule PO 1 cap QAM [facility] Administration Vitamin D 4,000 units 09/26/24 09:00 09/26/24 08:19 Cholecalciferol 1,000 Units Tablet PO 4,000 units DAILY [facility] Administration Radiology Results: ITS Impressions Head CT 09/24/24 20:52 IMPRESSION: No acute intracranial process. Chest/Abdomen/Pelvis CT 09/24/24 20:56 IMPRESSION: No acute process detected in the chest. Considerable fat stranding surrounding the left lower quadrant transplant kidney, as can be seen with infection. Chest X-Ray 09/26/24 05:25 Impression: Minimal central pulmonary venous congestive change. Stable Mediport. Labs Labs: Laboratory Tests 09/26/24 01:19 09/26/24 01:19 Calcium 8.9 Phosphorus 6.8 H Total Bilirubin 0.6 AST 29 ALT 24 Alkaline Phosphatase 87 Troponin I 1.680 H* Total Protein 6.0 L Albumin 2.9 L 09/26/24 07:25 Peritoneal Source Peritoneal fluid Peritoneal Color Colorless Peritoneal Appearance Clear Peritoneal RBC < 2000 Periton Nuc Cells 64 Periton Neutrophils 85 H Periton Lymphocytes 5 Peritoneal Monocytes 5 Periton Mesothelial 1 Periton Macrophages 4 Microbiology 09/24/24 21:11 Blood Blood Culture - Preliminary Staphylococcus aureus 09/24/24 22:53 Blood Blood Culture - Preliminary Staphylococcus aureus
[2024-09-26 12:35] LABS: Glucose Point of Care 154 mg/dl (65-105)
[2024-09-26] MEDS: COLCHICINE 0.6 MG TABLET PO (14:42)
[2024-09-26 15:57] LABS: Glucose Point of Care 260 mg/dl (65-105)
--- NOTE | 2024-09-26 16:31 | PM.CNCAR ---
Assessment and Plan Assessment and plan (1) Cardiomyopathy: Code(s): I42.9 - Cardiomyopathy, unspecified Status: Acute (2) NSTEMI (non-ST elevated myocardial infarction): Code(s): I21.4 - Non-ST elevation (NSTEMI) myocardial infarction Status: Acute Plan 1. ESRD on peritoneal dialysis 2. Suspected SBP/MRSA bacteremia 3. NSTEMI 4. Acute systolic heart failure -her symptoms of chest pain are atypical. It is quite possible her elevated troponin because of takotsubo cardiomyopathy however we cannot rule out LAD disease based on echo -continue heparin infusion -continue aspirin, beta-sumi and statin -left heart catheterization tomorrow to delineate coronary anatomy -NPO midnight -consider holding nifedipine because of underlying suspected as BP and bacteremia may decrease her blood pressure. Will also hold beta-sumi for now. Will start metoprolol succinate at a lower dose tomorrow if her blood pressure remains stable History of Present Illness History of Present Illness Consult date/time: 09/26/24 16:31 Reason For Visit: altered mental status Narrative: 64-year-old the female with a history of kidney transplant 2018 and failure of transplant 2021 is currently on peritoneal dialysis. She was admitted with suspected as BP and MRSA bacteremia. Cardiology consulted for atypical chest pain and elevated troponin. As per the patient she is having chest pain which is constant with possible to treat days and increases on respiration. Her troponins have been elevated initial troponin was 1.68 followed by 1.39 EKG shows poor R-wave progression TTE shows EF of 30-35%, wall motion suggestive of takotsubo cardiomyopathy Review of Systems Review of Systems: ROS unobtainable: Yes unobtainable due to medical condition [facility] Past Medical History Medical History Diabetes CKD (chronic kidney disease) Patient on peritoneal dialysis HTN (hypertension) Type 2 diabetes mellitus Thrombocytopenia Chronic anemia Cytomegalovirus Gastroesophageal reflux disease Hypertension End-stage renal disease on hemodialysis Wilm's tumor of right kidney Arthritis Hyperlipidemia Renal transplant recipient Failed transplant now on hemodialysis. Surgical History Surgical History History of hysterectomy History of cholecystectomy History of appendectomy History of renal transplant (09/2018) History of right nephrectomy As a child for Wilms tumor. Family History Family History Mother Family history of thyroid disease Family history of osteoporosis Depression Hypertension Family history of elevated blood lipids Family history of arthritis Family history of chronic obstructive pulmonary disease Family history of Alzheimer's disease Family history of atrial fibrillation Sibling Family history of thyroid disease Family history of hypercholesterolemia Hypertension Father Family history of hypercholesterolemia Hypertension Family history of cardiovascular disease Family history of coronary artery disease Social History Social History Social History: Surrogate medical decision maker: Vitaly Casey, spouse. Code status: Full code. Smoking status: Never smoker Second hand tobacco smoke exposure: No Alcohol intake: never Alcohol use details: Occasional Substance use: never Substance use type: does not use Do You Feel Safe in your Home?: Yes Lack of Transportation: No Lack of Food: Never True Current Housing: I Have Housing Concerned About Future Housing: No Difficulty Paying Gas/Electric Bills: No Difficulty Paying for Meds: No Currently Unemployed: No Education: Associate Degree Difficulty w/ Childcare or Family Care: No Living arrangements: alone Additional living arrangements comments: Lives in [place] with spouse. 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 Spiritual care concerns: No Meds Home Medications and Allergies Home Medications ?Medication ?Instructions ?Recorded ?Confirmed ?Type aspirin 81 mg tablet,delayed 81 mg PO DAILY 10/24/19 09/25/24 History release allopurinol 100 mg tablet 150 mg PO DAILY 07/22/22 09/25/24 History calcitriol 0.25 mcg capsule 0.25 mcg PO DAILY 07/22/22 09/25/24 History cinacalcet 30 mg tablet 60 mg PO .nightly 07/22/22 09/26/24 History cholecalciferol (vitamin D3) 100 100 mcg PO DAILY 08/09/22 09/25/24 History mcg (4,000 unit) tablet metoprolol succinate 50 mg 50 mg PO BID 08/09/22 09/25/24 History tablet,extended release 24 hr nifedipine 30 mg tablet,extended 60 mg PO BID 08/09/22 09/25/24 History release albuterol sulfate 90 mcg/actuation 2 inh inhalation QID PRN shortness 12/02/23 09/25/24 Rx aerosol inhaler of breath or wheezing #8.5 grams bumetanide 2 mg tablet 2 mg PO DAILY 12/02/23 09/25/24 History vitamin B complex-vitamin C-folic 1 tablet PO DAILY 12/02/23 09/25/24 History acid 0.8 mg tablet ([place]) cyclobenzaprine 5 mg tablet 5 mg PO TID PRN muscle spasm 01/15/24 09/25/24 History trazodone 50 mg tablet 50 mg PO HS 01/15/24 09/25/24 History lansoprazole 30 mg capsule,delayed 30 mg PO BID 07/07/24 09/25/24 History release nifedipine 60 mg tablet,extended 60 mg PO BID 07/07/24 09/25/24 History release rosuvastatin 20 mg tablet 20 mg PO DAILY 07/07/24 09/25/24 History sevelamer carbonate 800 mg tablet 800 mg PO TID 07/07/24 09/25/24 History sitagliptin phosphate 25 mg tablet 25 mg PO DAILY 07/07/24 09/25/24 History (Januvia) temazepam 7.5 mg capsule 7.5 mg PO HS 07/07/24 09/26/24 History doxazosin 1 mg tablet 4 mg PO DAILY 09/25/24 09/25/24 History tenapanor 30 mg tablet (Xphozah) 30 mg PO BID phosphate binder 09/26/24 09/26/24 History Allergies Allergy/AdvReac Type Severity Reaction Status Date / Time amoxicillin Allergy Unknown Rash Verified 08/15/24 09:11 clavulanic acid Allergy Unknown RASH Verified 08/15/24 09:11 fentanyl AdvReac Unknown very Verified 08/15/24 09:11 emotional crying levofloxacin AdvReac Unknown Nausea And Verified 08/15/24 09:11 Vomiting Vital Signs Vital Signs - 24 hr 09/25/24 18:00 09/25/24 20:00 09/25/24 20:00 Temperature Pulse Rate 132 H 116 H 116 H Respiratory Rate 18 Blood Pressure Pulse Oximetry 100 Oxygen Delivery Room Air Oxygen Flow Rate 09/25/24 20:22 09/25/24 20:52 09/25/24 22:00 Temperature 36.6 C Pulse Rate 114 H 124 H 98 Respiratory Rate 18 Blood Pressure 143/91 H Pulse Oximetry 100 Oxygen Delivery Oxygen Flow Rate 09/26/24 00:00 09/26/24 00:00 09/26/24 00:27 Temperature 36.5 C Pulse Rate 99 99 95 Respiratory Rate 18 18 Blood Pressure 131/84 Pulse Oximetry 100 100 Oxygen Delivery Room Air Oxygen Flow Rate 09/26/24 02:00 09/26/24 04:00 09/26/24 04:00 Temperature Pulse Rate 100 84 84 Respiratory Rate 20 Blood Pressure Pulse Oximetry 100 Oxygen Delivery Room Air Oxygen Flow Rate 09/26/24 04:22 09/26/24 06:00 09/26/24 08:00 Temperature 36.6 C 37.1 C Pulse Rate 86 82 97 Respiratory Rate 20 18 Blood Pressure 124/72 103/66 Pulse Oximetry 100 95 Oxygen Delivery Oxygen Flow Rate 09/26/24 08:00 09/26/24 08:00 09/26/24 08:21 Temperature Pulse Rate 98 98 Respiratory Rate Blood Pressure Pulse Oximetry 95 Oxygen Delivery Nasal Cannula Oxygen Flow Rate 2 09/26/24 10:00 09/26/24 11:45 09/26/24 12:00 Temperature 37.1 C Pulse Rate 98 98 Respiratory Rate 20 Blood Pressure 131/77 Pulse Oximetry 94 Oxygen Delivery Room Air Oxygen Flow Rate 09/26/24 12:00 09/26/24 14:44 Temperature 37.2 C Pulse Rate 115 H 96 Respiratory Rate 18 Blood Pressure 106/63 Pulse Oximetry 98 Oxygen Delivery Oxygen Flow Rate Exam Narrative: HEENT: PERRL, sclerae nonicteric, pharyngeal mucosa dry, pink, and intact NECK: No JVD, adenopathy, or thyromegaly CHEST: Clear to auscultation. Normal effort. HEART: NL S1/S2, regular, tachycardic, no murmur. ABDOMEN: BS hypoactive, soft, TENDER DIFFUSELY WITHOUT OBVIOUS GUARDING OR REBOUND, PD CATHETER IN PLACE AND SITE APPEARS CLEAN AND DRY. EXTREMITIES: No cyanosis, edema, or clubbing. DP PULSES 2+ BILATERALLY. No ulcerations of erythema of feet. NEUROLOGIC: CN intact and symmetric to inspection. Tone and strength seem symmetric with spontaneous movement in all 4 extremities and turning over in bed and attempting to get out of bed independently. MUSCULOSKELETAL: No gross deformities to visual inspection. PSYCH: Drowsy. Easily aroused. Response to both verbal and tactile stimuli but does not follow directions. Speech is monosyllabic. Results Labs and Meds 09/26/24 01:19 09/26/24 01:19 Lab results: Cardiac Enzymes 09/26/24 09/26/24 09/26/24 Range/Units 01:19 01:20 04:10 AST 29 (14-36) U/L Troponin I 1.680 H* 1.590 H* (0.000-0.034) ng/mL 09/26/24 Range/Units 07:05 AST (14-36) U/L Troponin I 1.390 H* (0.000-0.034) ng/mL Coagulation 09/26/24 09/26/24 Range/Units 04:10 04:10 PT 14.6 (11.1-14.7) Seconds APTT Cancelled 33.6 CBC 09/26/24 Range/Units 01:19 WBC 11.4 H (4.5-10.0) K/mm3 RBC 3.24 L (4.2-5.4) M/mm3 Hgb 9.6 L (12.0-15.0) g/dL Hct 31.4 L (37.0-47.0) % Plt Count 102 L (150-375) k/mm3 Lymph # (Auto) Not Reportable [place] # (Auto) Not Reportable Eos # (Auto) Not Reportable Baso # (Auto) Not Reportable Comprehensive Metabolic Panel 09/26/24 Range/Units 01:19 Sodium 132 L (137-145) mmol/L Potassium 4.2 (3.4-5.0) mmol/L Chloride 102 (98-107) mmol/L Carbon Dioxide 20 L (22-30) mmol/L BUN 51 H (7-17) mg/dL Creatinine 8.70 H (0.7-1.0) mg/dL Glucose 220 H (65-110) mg/dL Calcium 8.9 (8.4-10.2) mg/dL AST 29 (14-36) U/L ALT 24 (6-35) U/L Alkaline Phosphatase 87 (38-126) U/L Total Protein 6.0 L (6.3-8.2) g/dL Albumin 2.9 L (3.5-5.1) g/dL Intake and Output 09/26/24 09/26/24 09/26/24 07:59 15:59 23:59 Intake Total 317.2 637.3 Output Total 740 Balance -422.8 637.3 Intake: IV 17.2 277.3 Heparin Sod/D5w 100 Units/ml 25 17.2 27.3 ,000 units In 250 ml @ 800 UNITS/HR 8 mls/hr IV CONT .Q24H [facility] Rx#:[id number] Vancomycin 750 mg/Ns 250 ml 750 250 mg In 250 ml @ 250 mls/hr IVPB ONCE ONE Rx#:[id number] Oral 300 360 Output: Urine 100 Peritoneal Dialysis Total Ultra 640 Filtration Other: Number of Bowel Movements Today 3 Patient Weight 09/26/24 23:59 Weight 71.1 kg
[2024-09-26 16:45] LABS: Glucose Point of Care 237 mg/dl (65-105)
[2024-09-26] MEDS: INSULIN ASPART (*BKC) 100 UNITS/ML SUB-Q ×2 (16:58→21:03)
--- NOTE | 2024-09-26 17:13 | PHAR ---
Pharmacy verified home med: * Use From Home * Tenapanor [Xphozah] 30 mg tablet Take 1 tablet by mouth every morning and every night at bedtime
[2024-09-26] MEDS: EPOETIN ALFA-EPBX 10,000 UNITS/ML VIAL 10000 UNITS SUB-Q (19:27)
[2024-09-26 20:10] LABS: Glucose Point of Care 255 mg/dl (65-105)
[2024-09-26] MEDS: MEROPENEM 1 GM/NS 100 ML BAG IVPB (20:55)
[2024-09-26] MEDS: INSULIN GLARGINE (*BKC) 100 UNITS/ML 12 UNITS SUB-Q (21:01)
[2024-09-26] MEDS: CINACALCET 30 MG TABLET 60 MG PO (21:04)
[2024-09-26] MEDS: traZODone HCL 50 MG TABLET PO (21:05)
[2024-09-26] MEDS: TEMAZEPAM (*CRX) 7.5 MG CAPSULE PO (21:05)
[2024-09-26] MEDS: DOXAZOSIN MESYLATE 4 MG TABLET PO (21:06)
[2024-09-26] MEDS: TENAPANOR 30 MG 30 EACH PO (21:07)
[2024-09-26] MEDS: GENTAMICIN SULFATE 0.1% CR 15 GM TUBE 1 APPLIC TOPICAL (21:48)
[2024-09-26 22:46] LABS: Partial Thromboplastin Time 33.4 Seconds (22.3-36.8)
[2024-09-26] MEDS: HEPARIN SODIUM 5,000 UNITS/ML VIAL 4000 UNITS IV PUSH (23:08)
[2024-09-26 23:52] LABS: MRSA (PCR) NOT DETECTED (NOT DETECTE)
[2024-09-27] VITALS (23 sets, daily range): BP systolic 110–142; BP diastolic 71–87; PULSE 101–123; RESP 16–24; TEMP 36.8–37.6; O2SAT 94–100; BMI 28.2
[2024-09-27 05:55] LABS: Basophils Percent Auto 0.4 % (0.2-1.2); Eosinophils Percent Auto 0.7 % (0-4.4); Hematocrit 26.4 % (37.0-47.0); Immature Granulocyte Absolute 0.02 K/mm3 (0.00-0.031); Immature Granulocyte Percent A 0.4 % (0-0.5); Immature Platelet Fraction Pct 4.2 % (0.9-11.2); Lymphocytes Percent Auto 10.8 % (18.3-44.2); Mean Corpuscular HGB Conc 30.3 g/dl (32-36); Mean Corpuscular Hemoglobin 28.6 pg (26-34); Mean Corpuscular Volume 94.3 fl (80-100); Mean Platelet Volume 11.5 fl (7.4-10.4); Monocytes Absolute Auto 0.5 K/mm3 (0.1-0.6); Neutrophils Absolute Auto 4.4 K/mm3 (1.3-6.7); Neutrophils Percent Auto 78.7 % (45.5-73.1); Platelet Count Result 83 k/mm3 (150-375); Red Cell Distribution Width 19.7 % (11.5-14.5); White Blood Count 5.6 K/mm3 (4.5-10.0)
[2024-09-27 06:06] LABS: Alanine Aminotransferase 17 U/L (6-35); Albumin Level 2.7 g/dL (3.5-5.1); Alkaline Phosphatase 78 U/L (38-126); Anion Gap 10 mmol/L (4-12); Aspartate Amino Transferase 22 U/L (14-36); Bilirubin,Total 0.5 mg/dL (0.2-1.3); Blood Urea Nitrogen 51 mg/dL (7-17); Calcium 8.7 mg/dL (8.4-10.2); Carbon Dioxide 20 mmol/L (22-30); Chloride 100 mmol/L (98-107); Estimated CRCL calculation 6 ml/min; Estimated Glomerular Filt Rate 5; Glucose 354 mg/dL (65-110); Phosphorus 5.7 mg/dL (2.5-4.5); Potassium 3.6 mmol/L (3.4-5.0); Sodium 130 mmol/L (137-145)
[2024-09-27 06:09] LABS: Partial Thromboplastin Time 43.8 Seconds (22.3-36.8)
[2024-09-27] MEDS: HEPARIN SODIUM 5,000 UNITS/ML VIAL 4000 UNITS IV PUSH (06:37)
[2024-09-27] MEDS: INSULIN ASPART (*BKC) 100 UNITS/ML SUB-Q ×3 (06:37→21:36)
[2024-09-27 07:27] LABS: Hypochromasia 1+; Microcytosis 1+ (NORMAL); Platelet Estimate Decreased (Adequate)
[2024-09-27 07:28] LABS: Ovalocytes 1+; Schistocytes None Seen
--- NOTE | 2024-09-27 07:41 | P.PNIM_ITS ---
Progress Note: A&P Assessment and Plan (1) Sepsis: Code(s): A41.9 - Sepsis, unspecified organism Status: Acute Assessment and Plan: * Given GI symptoms, abdominal tenderness, and PD catheter, she likely has remberto tonitis secondary to PD. * Has hx of ESBL E. coli UTI in 2021, however urine now shows no signs of infection although she does have perinephric stranding on CT. * No signs of symptoms of pneumonia, sinusitis, bronchitis (CT C/A/P unrevealing). * No signs of symptoms of cellulitis. * Peritoneal fluid analysis reviewed * Started on Ancef due to MSSA * DC vancomycin * pending results of blood, urine, * Reviewed peritoneal fluid cultures. * Supportive fluids --> PO as now more awake and able to swallow. * Monitor I/O. (2) Type 2 diabetes mellitus: Qualifiers: Chronic kidney disease stage: on chronic dialysis Diabetes mellitus complication detail: with chronic kidney disease Diabetes mellitus complication status: with kidney complications Diabetes mellitus terminal system operator insulin use: without correction use Qualified Code(s): E11.22 - Type 2 diabetes mellitus with diabetic chronic kidney disease; N18.6 - End stage renal disease; Z99.2 - Dependence on renal dialysis Code(s): E11.9 - Type 2 diabetes mellitus without complications Status: Chronic Assessment and Plan: * Basal-bolus insulin regimen with glucose goal 140-180 mg/dl. (3) End-stage renal disease (ESRD): Code(s): N18.6 - End stage renal disease Status: Acute Assessment and Plan: * Nephrology consultation for dialysis management (primary customer associate is Dr. Hope). (4) Chronic anemia: Code(s): D64.9 - Anemia, unspecified Status: Chronic Assessment and Plan: * Related to ESRD and stable (5) Thrombocytopenia: Code(s): D69.6 - Thrombocytopenia, unspecified Status: Chronic Assessment and Plan: * Worsened from baseline of 165K, likely due to sepsis. * Monitor. (6) Hypertension: Qualifiers: Hypertension type: primary hypertension Qualified Code(s): I10 - Essential (primary) hypertension Code(s): I10 - Essential (primary) hypertension Status: Chronic Assessment and Plan: * Continue Metoprolol, Lisinopril, Nifedipine (7) Abnormal EKG: Code(s): R94.31 - Abnormal electrocardiogram [ECG] [EKG] Status: Acute Assessment and Plan: * Abnormalities in anterior leads more pronounced (poor anterior R-wave progression) than in 202. * Echocardiogram pending * Monitor on telemetry. (8) Elevated troponin I level: Code(s): R79.89 - Other specified abnormal findings of blood chemistry Status: Acute Assessment and Plan: * Elevated baseline due to ESRD, however increase is worrisome for demand (type 2) NE due to sepsis. * Increase metoprolol to limit myocardial oxygen demand. * Continue ASA. * Possible catheterization tomorrow to rule out takotsubo cardiomyopathy * Suspicious for pericarditis as well (9) Hyperlipemia: Code(s): E78.5 - Hyperlipidemia, unspecified Status: Acute Assessment and Plan: * Continue rosuvastatin. (10) Metabolic encephalopathy: Code(s): G93.41 - Metabolic encephalopathy Status: Acute Assessment and Plan: * Clinically due to sepsis. * No focal findings to suggest stroke. * No neck rigidity or tenderness to suggest meningitis or encephalitis. Subjective Date/time seen: 09/27/24 07:41 Interval history: Patient will undergo catheterization to rule out takotsubo cardiomyopathy. Patient has a history of Wilms tumor which was diagnosed at the age of 1. Patient had a kidney transplant 2018 but failed in 2020. Patient was transformed to hemodialysis. Due to multiple blockage of fistula , patient was transformed to peritoneal dialysis. Patient morning blood glucose 354, will give 2 units during peritoneal dialysis. Patient underwent catheterization. Discussed with the Cardiology.No significant finding in catheterization. Will wait for repeat blood culture. Patient started on Ancef due to MSSA Review of Systems Review of Systems: ROS unobtainable: Yes unobtainable due to medical condition Exam Narrative: HEENT: PERRL, sclerae nonicteric, pharyngeal mucosa dry, pink, and intact NECK: No JVD, adenopathy, or thyromegaly CHEST: Clear to auscultation. Normal effort. HEART: NL S1/S2, regular, tachycardic, no murmur. ABDOMEN: BS hypoactive, soft, TENDER DIFFUSELY WITHOUT OBVIOUS GUARDING OR REBOUND, PD CATHETER IN PLACE AND SITE APPEARS CLEAN AND DRY. EXTREMITIES: No cyanosis, edema, or clubbing. DP PULSES 2+ BILATERALLY. No ulcerations of erythema of feet. NEUROLOGIC: CN intact and symmetric to inspection. Tone and strength seem symmetric with spontaneous movement in all 4 extremities and turning over in bed and attempting to get out of bed independently. MUSCULOSKELETAL: No gross deformities to visual inspection. PSYCH: Drowsy. Easily aroused. Response to both verbal and tactile stimuli but does not follow directions. Speech is monosyllabic. Objective Data Vital Signs Vital Signs: Vital Signs - 24 hr 09/26/24 08:00 09/26/24 08:00 09/26/24 08:00 Temperature 98.7 F Pulse Rate 97 98 Respiratory Rate 18 Blood Pressure 103/66 Pulse Oximetry 95 95 Oxygen Delivery Nasal Cannula Oxygen Flow Rate 2 09/26/24 08:21 09/26/24 10:00 09/26/24 11:45 Temperature 98.7 F Pulse Rate 98 98 98 Respiratory Rate 20 Blood Pressure 131/77 Pulse Oximetry 94 Oxygen Delivery Oxygen Flow Rate 09/26/24 12:00 09/26/24 12:00 09/26/24 14:00 Temperature Pulse Rate 115 H 94 Respiratory Rate Blood Pressure Pulse Oximetry Oxygen Delivery Room Air Oxygen Flow Rate 09/26/24 14:44 09/26/24 16:00 09/26/24 16:00 Temperature 99.0 F Pulse Rate 96 97 Respiratory Rate 18 Blood Pressure 106/63 Pulse Oximetry 98 Oxygen Delivery Room Air Oxygen Flow Rate 09/26/24 18:00 09/26/24 20:00 09/26/24 20:00 Temperature 99.5 F Pulse Rate 107 H 100 100 Respiratory Rate 20 20 Blood Pressure 111/66 Pulse Oximetry 94 94 Oxygen Delivery Room Air Oxygen Flow Rate 09/26/24 20:00 09/26/24 22:00 09/26/24 23:39 Temperature 100.3 F H Pulse Rate 99 105 H 110 H Respiratory Rate 24 H Blood Pressure 121/69 Pulse Oximetry 95 Oxygen Delivery Oxygen Flow Rate 09/27/24 00:00 09/27/24 00:00 09/27/24 02:00 Temperature Pulse Rate 108 H 108 H 111 H Respiratory Rate 20 Blood Pressure Pulse Oximetry 94 Oxygen Delivery Room Air Oxygen Flow Rate 09/27/24 03:51 09/27/24 04:00 09/27/24 04:00 Temperature 98.9 F Pulse Rate 113 H 115 H 115 H Respiratory Rate 20 20 Blood Pressure 110/71 Pulse Oximetry 96 94 Oxygen Delivery Room Air Oxygen Flow Rate 09/27/24 06:00 09/27/24 07:36 Temperature 98.3 F Pulse Rate 107 H 106 H Respiratory Rate 20 Blood Pressure 123/77 Pulse Oximetry 95 Oxygen Delivery Oxygen Flow Rate Intake/Output Intake/Output: Intake & Output 09/24/24 09/25/24 09/26/24 09/27/24 23:59 23:59 23:59 23:59 Intake Total 2450 1180 1539.8 632.5 Output Total 095 506 9143 100 Balance 2350 880 349.8 532.5 Meds/Results Medications: Active Medications Generic Name Dose Route Start Last Admin Trade Name Freq PRN Reason Stop Dose Admin Acetaminophen 650 mg 09/25/24 18:05 09/26/24 01:05 Acetaminophen 325 Mg Tablet PO 650 mg Q6H PRN Administration Mild Pain (1-3) or Fever Albuterol 2 puff 09/25/24 16:39 Albuterol Sulfate (*Sp) Aerosol 1 Puff INHALATION QID PRN shortness of breath or wheezing Allopurinol 150 mg 09/26/24 09:00 09/26/24 08:21 Allopurinol 150 Mg Tablet PO 150 mg DAILY JENNIFER Administration Aspirin 81 mg 09/27/24 09:00 Aspirin 81 Mg Enteric Tablet PO QAM JENNIFER Calcitriol 0.25 mcg 09/26/24 09:00 09/26/24 08:21 Calcitriol 0.25 Mcg Capsule PO 0.25 mcg DAILY JENNIFER Administration Cinacalcet 60 mg 09/26/24 21:00 09/26/24 21:04 Cinacalcet 30 Mg Tablet PO 60 mg HS JENNIFER Administration Cyclobenzaprine HCl 5 mg 09/26/24 13:07 Cyclobenzaprine Hcl 5 Mg Tablet PO TID PRN muscle spasm Dextrose 12.5 gm 09/25/24 09:22 Dextrose 50% 25 Gm/50 Ml Syringe IV PUSH PRN PRN Hypoglycemia Protocol Doxazosin Mesylate 4 mg 09/26/24 21:00 09/26/24 21:06 Doxazosin Mesylate 4 Mg Tablet PO 4 mg HS JENNIFER Administration Epoetin Orestes-epbx 10,000 units 09/27/24 09:00 Epoetin Orestes-Epbx 10,000 Units/Ml Vial SUB-Q [id number]@09 [facility] Gentamicin Sulfate 1 applic 09/25/24 21:00 09/26/24 21:48 Gentamicin Sulfate 0.1% Cr 15 Gm Tube TOPICAL 1 applic QHS JENNIFER Administration Glucagon 1 mg 09/25/24 09:22 Glucagon For Inj 1 Mg Vial IM PRN PRN Hypoglycemia Protocol Glucose 15 gm 09/25/24 09:22 Glucose Oral Gel 15 Gm Of Glucse In 37.5 Gm Tube PO PRN PRN Hypoglycemia Protocol Heparin Sodium (Porcine) 5,000 units 09/25/24 09:25 09/26/24 21:04 Heparin Sodium 5,000 Units/Ml Vial SUB-Q Not Given Q12HR JENNIFER Heparin Sodium (Porcine) 4,000 units 09/26/24 13:56 09/27/24 06:37 Heparin Sodium 5,000 Units/Ml Vial IV PUSH 4,000 units PRN PRN Administration aPTT less than 55 seconds Heparin Sodium (Porcine) 2,500 units 09/26/24 13:56 Heparin Sodium 5,000 Units/Ml Vial IV PUSH PRN PRN aPTT 55 - 70 seconds Dextrose 1,000 mls @ 100 mls/hr 09/25/24 09:22 Dextrose 5% 1,000 Ml IVPB PRN PRN Hypoglycemia Protocol Heparin Sodium/Dextrose 25,000 units in 250 mls @ 14 mls/hr 09/26/24 14:00 09/27/24 06:38 Heparin Sodium/D5w 100 Units/Ml IV CONT 1,400 units/hr .[id number] JENNIFER 14 mls/hr Titration Protocol 1,400 UNITS/HR Meropenem 1 gm in 100 mls @ 200 mls/hr 09/26/24 20:00 09/26/24 21:30 IVPB Infused Q24H JENNIFER Infusion Insulin Aspart 2 - 5 units 09/26/24 06:30 09/27/24 06:37 Insulin Aspart (*Bkc) 100 Units/Ml SUB-Q 5 units ACHS JENNIFER Administration Protocol Insulin Glargine 12 units 09/25/24 21:00 09/26/24 21:01 Insulin Glargine (*Bkc) 100 Units/Ml 0.15 units/kg (12 units) 12 units SUB-Q Administration HS JENNIFER Tenapanor [Xphozah] 30 mg 09/26/24 21:00 09/26/24 21:07 30 Mg Tablet) PO 10/26/24 20:59 30 mg Q12HR JENNIFER Administration Pantoprazole Sodium 40 mg 09/25/24 21:00 09/26/24 21:05 Pantoprazole 40 Mg Tablet PO 40 mg Q12HR JENNIFER Administration Perflutren Lipid Microsphere 0 ml 09/25/24 09:21 Perflutren Lipid Microspheres 1.5 Ml Vial Diluted To 10 Ml Total Volume IV PUSH 09/28/24 09:22 ONCE PRN adequate visualization Protocol Rosuvastatin Calcium 20 mg 09/26/24 09:00 09/26/24 08:21 Rosuvastatin 20 Mg Tablet PO 20 mg DAILY JENNIFER Administration Sevelamer Carbonate 1,600 mg 09/27/24 08:00 Sevelamer Carbonate 800 Mg Tablet PO TIDWM JENNIFER Temazepam 7.5 mg 09/26/24 21:00 09/26/24 21:05 Temazepam (*Crx) 7.5 Mg Capsule PO 10/26/24 20:59 7.5 mg HS JENNIFER Administration Trazodone HCl 50 mg 09/26/24 21:00 09/26/24 21:05 Trazodone Hcl 50 Mg Tablet PO 50 mg HS JENNIFER Administration Vitamin B Complex/Folic Acid 1 cap 09/26/24 09:00 09/26/24 08:22 Vitamin B Cmplx/Vit C/Folic Ac 1 Capsule PO 1 cap QAM JENNIFER Administration Vitamin D 4,000 units 09/26/24 09:00 09/26/24 08:19 Cholecalciferol 1,000 Units Tablet PO 4,000 units DAILY JENNIFER Administration Radiology Results: ITS Impressions Head CT 09/24/24 20:52 IMPRESSION: No acute intracranial process. Chest/Abdomen/Pelvis CT 09/24/24 20:56 IMPRESSION: No acute process detected in the chest. Considerable fat stranding surrounding the left lower quadrant transplant kidney, as can be seen with infection. Chest X-Ray 09/26/24 05:25 Impression: Minimal central pulmonary venous congestive change. Stable Mediport. Labs Labs: Laboratory Results - last 24 hr 09/26/24 09/26/24 09/26/24 07:05 07:25 08:18 WBC RBC Hgb Hct MCV MCH MCHC RDW Plt Count MPV Immature Gran % (Auto) Neut % (Auto) Lymph % (Auto) Pratt % (Auto) Eos % (Auto) Baso % (Auto) Lymph # (Auto) Pratt # (Auto) Eos # (Auto) Baso # (Auto) Abs Immat Gran (auto) Absolute Neuts (auto) Absolute Nucleated RBC Nucleated RBC % Platelet Estimate % Immature Plt Fraction Hypochromasia Microcytosis Ovalocytes Schistocytes APTT Sodium Potassium Chloride Carbon Dioxide Anion Gap BUN Creatinine Estim Creat Clear Calc Estimated GFR Glucose POC Capillary Glucose 168 H Calcium Phosphorus Total Bilirubin AST ALT Alkaline Phosphatase Troponin I 1.390 H* Total Protein Albumin Peritoneal Source Peritoneal fluid Peritoneal Color Colorless Peritoneal Appearance Clear Peritoneal RBC < 2000 Periton Nuc Cells 64 Periton Neutrophils 85 H Periton Lymphocytes 5 Peritoneal Monocytes 5 Periton Mesothelial 1 Periton Macrophages 4 Nasal MRSA (PCR) 09/26/24 09/26/24 09/26/24 11:35 14:39 16:39 WBC RBC Hgb Hct MCV MCH MCHC RDW Plt Count MPV Immature Gran % (Auto) Neut % (Auto) Lymph % (Auto) Pratt % (Auto) Eos % (Auto) Baso % (Auto) Lymph # (Auto) Pratt # (Auto) Eos # (Auto) Baso # (Auto) Abs Immat Gran (auto) Absolute Neuts (auto) Absolute Nucleated RBC Nucleated RBC % Platelet Estimate % Immature Plt Fraction Hypochromasia Microcytosis Ovalocytes Schistocytes APTT Sodium Potassium Chloride Carbon Dioxide Anion Gap BUN Creatinine Estim Creat Clear Calc Estimated GFR Glucose POC Capillary Glucose 154 H 260 H 237 H Calcium Phosphorus Total Bilirubin AST ALT Alkaline Phosphatase Troponin I Total Protein Albumin Peritoneal Source Peritoneal Color Peritoneal Appearance Peritoneal RBC Periton Nuc Cells Periton Neutrophils Periton Lymphocytes Peritoneal Monocytes Periton Mesothelial Periton Macrophages Nasal MRSA (PCR) 09/26/24 09/26/24 09/26/24 20:02 22:23 22:33 WBC RBC Hgb Hct MCV MCH MCHC RDW Plt Count MPV Immature Gran % (Auto) Neut % (Auto) Lymph % (Auto) Pratt % (Auto) Eos % (Auto) Baso % (Auto) Lymph # (Auto) Pratt # (Auto) Eos # (Auto) Baso # (Auto) Abs Immat Gran (auto) Absolute Neuts (auto) Absolute Nucleated RBC Nucleated RBC % Platelet Estimate % Immature Plt Fraction Hypochromasia Microcytosis Ovalocytes Schistocytes APTT 33.4 Sodium Potassium Chloride Carbon Dioxide Anion Gap BUN Creatinine Estim Creat Clear Calc Estimated GFR Glucose POC Capillary Glucose 255 H Calcium Phosphorus Total Bilirubin AST ALT Alkaline Phosphatase Troponin I Total Protein Albumin Peritoneal Source Peritoneal Color Peritoneal Appearance Peritoneal RBC Periton Nuc Cells Periton Neutrophils Periton Lymphocytes Peritoneal Monocytes Periton Mesothelial Periton Macrophages Nasal MRSA (PCR) Not detected 09/27/24 09/27/24 09/27/24 05:46 05:46 05:46 WBC 5.6 Cancelled RBC 2.80 L Cancelled Hgb 8.0 L Hct MCV MCH MCHC RDW Plt Count MPV Immature Gran % (Auto) Neut % (Auto) Lymph % (Auto) Pratt % (Auto) Eos % (Auto) Baso % (Auto) Lymph # (Auto) Pratt # (Auto) Eos # (Auto) Baso # (Auto) Abs Immat Gran (auto) Absolute Neuts (auto) Absolute Nucleated RBC Nucleated RBC % Platelet Estimate % Immature Plt Fraction Hypochromasia Microcytosis Ovalocytes Schistocytes APTT Sodium Potassium Chloride Carbon Dioxide Anion Gap BUN Creatinine Estim Creat Clear Calc Estimated GFR Glucose POC Capillary Glucose Calcium Phosphorus Total Bilirubin AST ALT Alkaline Phosphatase Troponin I Total Protein Albumin Peritoneal Source Peritoneal Color Peritoneal Appearance Peritoneal RBC Periton Nuc Cells Periton Neutrophils Periton Lymphocytes Peritoneal Monocytes Periton Mesothelial Periton Macrophages Nasal MRSA (PCR) 09/27/24 09/27/24 09/27/24 05:46 05:46 05:46 WBC RBC Hgb Cancelled Hct 26.4 L Cancelled MCV 94.3 Cancelled MCH 28.6 MCHC RDW Plt Count MPV Immature Gran % (Auto) Neut % (Auto) Lymph % (Auto) Pratt % (Auto) Eos % (Auto) Baso % (Auto) Lymph # (Auto) Pratt # (Auto) Eos # (Auto) Baso # (Auto) Abs Immat Gran (auto) Absolute Neuts (auto) Absolute Nucleated RBC Nucleated RBC % Platelet Estimate % Immature Plt Fraction Hypochromasia Microcytosis Ovalocytes Schistocytes APTT Sodium Potassium Chloride Carbon Dioxide Anion Gap BUN Creatinine Estim Creat Clear Calc Estimated GFR Glucose POC Capillary Glucose Calcium Phosphorus Total Bilirubin AST ALT Alkaline Phosphatase Troponin I Total Protein Albumin Peritoneal Source Peritoneal Color Peritoneal Appearance Peritoneal RBC Periton Nuc Cells Periton Neutrophils Periton Lymphocytes Peritoneal Monocytes Periton Mesothelial Periton Macrophages Nasal MRSA (PCR) 09/27/24 09/27/24 09/27/24 05:46 05:46 05:46 WBC RBC Hgb Hct MCV MCH Cancelled MCHC 30.3 L Cancelled RDW 19.7 H Cancelled Plt Count 83 L MPV Immature Gran % (Auto) Neut % (Auto) Lymph % (Auto) Pratt % (Auto) Eos % (Auto) Baso % (Auto) Lymph # (Auto) Pratt # (Auto) Eos # (Auto) Baso # (Auto) Abs Immat Gran (auto) Absolute Neuts (auto) Absolute Nucleated RBC Nucleated RBC % Platelet Estimate % Immature Plt Fraction Hypochromasia Microcytosis Ovalocytes Schistocytes APTT Sodium Potassium Chloride Carbon Dioxide Anion Gap BUN Creatinine Estim Creat Clear Calc Estimated GFR Glucose POC Capillary Glucose Calcium Phosphorus Total Bilirubin AST ALT Alkaline Phosphatase Troponin I Total Protein Albumin Peritoneal Source Peritoneal Color Peritoneal Appearance Peritoneal RBC Periton Nuc Cells Periton Neutrophils Periton Lymphocytes Peritoneal Monocytes Periton Mesothelial Periton Macrophages Nasal MRSA (PCR) 09/27/24 09/27/24 09/27/24 05:46 05:46 05:46 WBC RBC Hgb Hct MCV MCH MCHC RDW Plt Count Cancelled MPV 11.5 H Cancelled Immature Gran % (Auto) 0.4 Neut % (Auto) 78.7 H Lymph % (Auto) 10.8 L Pratt % (Auto) 9.0 H Eos % (Auto) 0.7 Baso % (Auto) 0.4 Lymph # (Auto) 0.60 L Pratt # (Auto) 0.5 Eos # (Auto) 0.0 Baso # (Auto) 0.0 Abs Immat Gran (auto) 0.02 Absolute Neuts (auto) 4.4 Absolute Nucleated RBC 0.000 Nucleated RBC % 0.0 Platelet Estimate Decreased % Immature Plt Fraction 4.2 Cancelled Hypochromasia 1+ Microcytosis 1+ Ovalocytes 1+ Schistocytes None seen APTT 43.8 H Sodium 130 L Potassium 3.6 Chloride 100 Carbon Dioxide 20 L Anion Gap 10 BUN 51 H Creatinine 7.80 H Estim Creat Clear Calc 6 Estimated GFR 5 L Glucose 354 H POC Capillary Glucose Calcium 8.7 Phosphorus 5.7 H Total Bilirubin 0.5 AST 22 ALT 17 Alkaline Phosphatase 78 Troponin I Total Protein 6.0 L Albumin 2.7 L Peritoneal Source Peritoneal Color Peritoneal Appearance Peritoneal RBC Periton Nuc Cells Periton Neutrophils Periton Lymphocytes Peritoneal Monocytes Periton Mesothelial Periton Macrophages Nasal MRSA (PCR) Quality VTE Prophylaxis VTE prophylaxis: pharmacologic ordered (heparin) Hospitalist MIPS Advance Care Plan I have confirmed that the patient's Advanced Care Plan is present, code status is documented, or surrogate decision maker is listed in patient medical record.: Yes Medication Reconciliation I have utilized all available resources to obtain, update and review the patients current medications (includes all prescriptions, OTC, herbals, cannabis, and nutritional supplements).: Yes
[2024-09-27 08:14] LABS: Glucose Point of Care 310 mg/dl (65-105)
--- NOTE | 2024-09-27 09:01 | WPDMODSED ---
Moderate Sedation Note-Pt Data Patient Data Diagnosis: NSTEMI CARDIOMYOPATHY Procedure to be performed/Plan: LEFT HEART CATHETERIZATION CORONARY ANGIOGRAPHY Allergies Allergy/AdvReac Type Severity Reaction Status Date / Time amoxicillin Allergy Unknown Rash Verified 08/15/24 09:11 clavulanic acid Allergy Unknown RASH Verified 08/15/24 09:11 fentanyl AdvReac Unknown very Verified 08/15/24 09:11 emotional crying levofloxacin AdvReac Unknown Nausea And Verified 08/15/24 09:11 Vomiting Home Medications ?Medication ?Instructions ?Recorded ?Confirmed ?Type aspirin 81 mg tablet,delayed 81 mg PO DAILY 10/24/19 09/25/24 History release allopurinol 100 mg tablet 150 mg PO DAILY 07/22/22 09/25/24 History calcitriol 0.25 mcg capsule 0.25 mcg PO DAILY 07/22/22 09/25/24 History cinacalcet 30 mg tablet 60 mg PO .nightly 07/22/22 09/26/24 History cholecalciferol (vitamin D3) 100 100 mcg PO DAILY 08/09/22 09/25/24 History mcg (4,000 unit) tablet metoprolol succinate 50 mg 50 mg PO BID 08/09/22 09/25/24 History tablet,extended release 24 hr nifedipine 30 mg tablet,extended 60 mg PO BID 08/09/22 09/25/24 History release albuterol sulfate 90 mcg/actuation 2 inh inhalation QID PRN shortness 12/02/23 09/25/24 Rx aerosol inhaler of breath or wheezing #8.5 grams bumetanide 2 mg tablet 2 mg PO DAILY 12/02/23 09/25/24 History vitamin B complex-vitamin C-folic 1 tablet PO DAILY 12/02/23 09/25/24 History acid 0.8 mg tablet ([place]) cyclobenzaprine 5 mg tablet 5 mg PO TID PRN muscle spasm 01/15/24 09/25/24 History trazodone 50 mg tablet 50 mg PO HS 01/15/24 09/25/24 History lansoprazole 30 mg capsule,delayed 30 mg PO BID 07/07/24 09/25/24 History release nifedipine 60 mg tablet,extended 60 mg PO BID 07/07/24 09/25/24 History release rosuvastatin 20 mg tablet 20 mg PO DAILY 07/07/24 09/25/24 History sevelamer carbonate 800 mg tablet 1,600 mg PO TID 07/07/24 09/26/24 History sitagliptin phosphate 25 mg tablet 25 mg PO DAILY 07/07/24 09/25/24 History (Shalini) temazepam 7.5 mg capsule 7.5 mg PO HS 07/07/24 09/26/24 History doxazosin 1 mg tablet 4 mg PO DAILY 09/25/24 09/25/24 History tenapanor 30 mg tablet (Xphozah) 30 mg PO BID phosphate binder 09/26/24 09/26/24 History Current Medications: Active Medications Acetaminophen (Acetaminophen 325 Mg Tablet) 650 mg PO Q6H PRN PRN Reason: Mild Pain (1-3) or Fever Last Admin: 09/26/24 01:05 Dose: 650 mg Albuterol (Albuterol Sulfate (*Sp) Aerosol 1 Puff) 2 puff INHALATION QID PRN PRN Reason: shortness of breath or wheezing Allopurinol (Allopurinol 150 Mg Tablet) 150 mg PO DAILY [facility] Last Admin: 09/26/24 08:21 Dose: 150 mg Aspirin ([facility]spirin 81 Mg [facility]ic Tablet) [facility] [place] Last Admin: 09/27/24 08:37 Dose: Not Given Calcitriol (Calcitriol 0.25 Mcg Capsule) 0.25 mcg PO DAILY [facility] Last Admin: 09/26/24 08:21 Dose: 0.25 mcg Cinacalcet (Cinacalcet 30 Mg Tablet) 60 mg PO HS [facility] Last Admin: 09/26/24 21:04 Dose: 60 mg Cyclobenzaprine HCl (Cyclobenzaprine Hcl 5 Mg Tablet) 5 mg PO TID PRN PRN Reason: muscle spasm Dextrose (Dextrose 50% 25 Gm/50 Ml Syringe) 12.5 gm IV PUSH PRN PRN; Protocol PRN Reason: Hypoglycemia Doxazosin Mesylate (Doxazosin Mesylate 4 Mg Tablet) 4 mg PO [facility] Last Admin: 09/26/24 21:06 Dose: 4 mg Epoetin Orestes-epbx (Epoetin Orestes-Epbx 10,000 Units/Ml Vial) 10,000 units SUB-Q MOWEFR@09 [facility] Gentamicin Sulfate (Gentamicin Sulfate 0.1% Cr 15 Gm Tube) 1 applic TOPICAL QHS [facility] Last Admin: 09/26/24 21:48 Dose: 1 applic Glucagon (Glucagon For Inj 1 Mg Vial) 1 mg IM PRN PRN; Protocol PRN Reason: Hypoglycemia Glucose (Glucose Oral Gel 15 Gm Of Glucse In 37.5 Gm Tube) 15 gm PO PRN PRN; Protocol PRN Reason: Hypoglycemia Heparin Sodium (Porcine) (Heparin Sodium 5,000 Units/Ml Vial) 5,000 units SUB-Q Q12HR [facility] Last Admin: 09/26/24 21:04 Dose: Not Given Heparin Sodium (Porcine) (Heparin Sodium 5,000 Units/Ml Vial) 4,000 units IV PUSH PRN PRN PRN Reason: aPTT less than 55 seconds Last Admin: 09/27/24 06:37 Dose: 4,000 units Heparin Sodium (Porcine) (Heparin Sodium 5,000 Units/Ml Vial) 2,500 units IV PUSH PRN PRN PRN Reason: aPTT 55 - 70 seconds Dextrose (Dextrose 5% 1,000 Ml) 1,000 mls @ 100 mls/hr IVPB PRN PRN; Protocol PRN Reason: Hypoglycemia Heparin Sodium/Dextrose (Heparin Sodium/D5w 100 Units/Ml) 25,000 units in 250 mls @ 14 mls/hr IV CONT .[id number] [facility]; Protocol Last Titration: 09/27/24 06:38 Dose: 1,400 units/hr, 14 mls/hr Meropenem () 1 gm in 100 mls @ 200 mls/hr IVPB Q24H [facility] Last Infusion: 09/26/24 21:30 Dose: Infused Insulin Aspart (Insulin Aspart (*Bkc) 100 Units/Ml) 2 - 5 units SUB-Q ACHS [facility]; Protocol Last Admin: 09/27/24 06:37 Dose: 5 units Insulin Glargine (Insulin Glargine (*Bkc) 100 Units/Ml) 12 units 0.15 units/kg (12 units) SUB-Q HS [facility] Last Admin: 09/26/24 21:01 Dose: 12 units Tenapanor [Xphozah] (30 Mg Tablet)) 30 mg PO Q12HR [facility] Stop: 10/26/24 20:59 Last Admin: 09/26/24 21:07 Dose: 30 mg Pantoprazole Sodium (Pantoprazole 40 Mg Tablet) 40 mg PO Q12HR [facility] Last Admin: 09/26/24 21:05 Dose: 40 mg Perflutren Lipid Microsphere (Perflutren Lipid Microspheres 1.5 Ml Vial Diluted To 10 Ml Total Volume) 0 ml IV PUSH ONCE PRN; Protocol PRN Reason: adequate visualization Stop: 09/28/24 09:22 Rosuvastatin Calcium (Rosuvastatin 20 Mg Tablet) 20 mg PO DAILY [facility] Last Admin: 09/26/24 08:21 Dose: 20 mg Sevelamer Carbonate (Sevelamer Carbonate 800 Mg Tablet) 1,600 mg PO TIDWM [facility] Temazepam (Temazepam (*Crx) 7.5 Mg Capsule) 7.5 mg PO HS [facility] Stop: 10/26/24 20:59 Last Admin: 09/26/24 21:05 Dose: 7.5 mg Trazodone HCl (Trazodone Hcl 50 Mg Tablet) 50 mg PO [facility] Last Admin: 09/26/24 21:05 Dose: 50 mg Vitamin B Complex/Folic Acid (Vitamin B Cmplx/Vit C/Folic Ac 1 Capsule) 1 cap PO QAM [facility] Last Admin: 09/26/24 08:22 Dose: 1 cap Vitamin D (Cholecalciferol 1,000 Units Tablet) 4,000 units PO DAILY [facility] Last Admin: 09/26/24 08:19 Dose: 4,000 units Sedation/Anesthesia: No previous sedation/anesthesia problems (including family history). [facility] Past Medical History Medical History Diabetes CKD (chronic kidney disease) Patient on peritoneal dialysis HTN (hypertension) Type 2 diabetes mellitus Thrombocytopenia Chronic anemia Cytomegalovirus Gastroesophageal reflux disease Hypertension End-stage renal disease on hemodialysis Wilm's tumor of right kidney Arthritis Hyperlipidemia Renal transplant recipient Failed transplant now on hemodialysis. Surgical History Surgical History History of hysterectomy History of cholecystectomy History of appendectomy History of renal transplant (09/2018) History of right nephrectomy As a child for Wilms tumor. Family History Family History Mother Family history of thyroid disease Family history of osteoporosis Depression Hypertension Family history of elevated blood lipids Family history of arthritis Family history of chronic obstructive pulmonary disease Family history of Alzheimer's disease Family history of atrial fibrillation Sibling Family history of thyroid disease Family history of hypercholesterolemia Hypertension Father Family history of hypercholesterolemia Hypertension Family history of cardiovascular disease Family history of coronary artery disease Social History Social History Social History: Surrogate medical decision maker: Vitaly Casey, spouse. Code status: Full code. Smoking status: Never smoker Second hand tobacco smoke exposure: No Alcohol intake: never Alcohol use details: Occasional Substance use: never Substance use type: does not use Do You Feel Safe in your Home?: Yes Lack of Transportation: No Lack of Food: Never True Current Housing: I Have Housing Concerned About Future Housing: No Difficulty Paying Gas/Electric Bills: No Difficulty Paying for Meds: No Currently Unemployed: No Education: Associate Degree Difficulty w/ Childcare or Family Care: No Living arrangements: alone Additional living arrangements comments: Lives in [place] with spouse. 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 Spiritual care concerns: No Mod Sed Physical Exam Physical Exam Pre Procedural Exam: Normal: Appearance, Eyes, Ears, Nose, Neck, Throat, Airway, Lungs, Heart Size, Heart Rate, Heart Rhythm, Neuro Exam, Abdomen, Liver, Kidneys, Spleen, Breasts, Genitalia, Extremities and Skin Hours since solid foods: 8 Hours since liquid intake: 8 Mallampati Classification: class II Internal Medicine - PN: Obj Da Vital Signs Vital Signs: Vital Signs - 24 hr 09/26/24 10:00 09/26/24 11:45 09/26/24 12:00 Temperature 37.1 C Pulse Rate 98 98 Respiratory Rate 20 Blood Pressure 131/77 Pulse Oximetry 94 Oxygen Delivery Room Air 09/26/24 12:00 09/26/24 14:00 09/26/24 14:44 Temperature 37.2 C Pulse Rate 115 H 94 96 Respiratory Rate 18 Blood Pressure 106/63 Pulse Oximetry 98 Oxygen Delivery 09/26/24 16:00 09/26/24 16:00 09/26/24 18:00 Temperature Pulse Rate 97 107 H Respiratory Rate Blood Pressure Pulse Oximetry Oxygen Delivery Room Air 09/26/24 20:00 09/26/24 20:00 09/26/24 20:00 Temperature 37.5 C Pulse Rate 100 100 99 Respiratory Rate 20 20 Blood Pressure 111/66 Pulse Oximetry 94 94 Oxygen Delivery Room Air 09/26/24 22:00 09/26/24 23:39 09/27/24 00:00 Temperature 37.9 C H Pulse Rate 105 H 110 H 108 H Respiratory Rate 24 H Blood Pressure 121/69 Pulse Oximetry 95 Oxygen Delivery 09/27/24 00:00 09/27/24 02:00 09/27/24 03:51 Temperature 37.2 C Pulse Rate 108 H 111 H 113 H Respiratory Rate 20 20 Blood Pressure 110/71 Pulse Oximetry 94 96 Oxygen Delivery Room Air 09/27/24 04:00 09/27/24 04:00 09/27/24 06:00 Temperature Pulse Rate 115 H 115 H 107 H Respiratory Rate 20 Blood Pressure Pulse Oximetry 94 Oxygen Delivery Room Air 09/27/24 07:22 09/27/24 07:36 Temperature 37.2 C 36.8 C Pulse Rate 113 H 106 H Respiratory Rate 20 20 Blood Pressure 110/71 123/77 Pulse Oximetry 95 Oxygen Delivery Intake/Output Intake/Output: Intake & Output 09/24/24 09/25/24 09/26/24 09/27/24 23:59 23:59 23:59 23:59 Intake Total 2450 1180 1539.8 752.5 Output Total 619 269 5251 1580 Balance 2350 880 349.8 -827.5 Meds/Results Medications: Active Medications Generic Name Dose Route Start Last Admin Trade Name Freq PRN Reason Stop Dose Admin Acetaminophen 650 mg 09/25/24 18:05 09/26/24 01:05 Acetaminophen 325 Mg Tablet PO 650 mg Q6H PRN Administration Mild Pain (1-3) or Fever Albuterol 2 puff 09/25/24 16:39 Albuterol Sulfate (*Sp) Aerosol 1 Puff INHALATION QID PRN shortness of breath or wheezing Allopurinol 150 mg 09/26/24 09:00 09/26/24 08:21 Allopurinol 150 Mg Tablet PO 150 mg DAILY [facility] Administration Aspirin 81 mg 09/27/24 09:00 09/27/24 08:37 Aspirin 81 Mg Enteric Tablet PO Not Given QA [facility] Calcitriol 0.25 mcg 09/26/24 09:00 09/26/24 08:21 Calcitriol 0.25 Mcg Capsule PO 0.25 mcg DAILY [facility] Administration Cinacalcet 60 mg 09/26/24 21:00 09/26/24 21:04 Cinacalcet 30 Mg Tablet PO 60 mg HS [facility] Administration Cyclobenzaprine HCl 5 mg 09/26/24 13:07 Cyclobenzaprine Hcl 5 Mg Tablet PO TID PRN muscle spasm Dextrose 12.5 gm 09/25/24 09:22 Dextrose 50% 25 Gm/50 Ml Syringe IV PUSH PRN PRN Hypoglycemia Protocol Doxazosin Mesylate 4 mg 09/26/24 21:00 09/26/24 21:06 Doxazosin Mesylate 4 Mg Tablet PO 4 mg HS [facility] Administration Epoetin Orestes-epbx 10,000 units 09/27/24 09:00 Epoetin Orestse-Epbx 10,000 Units/Ml Vial SUB-Q MOWEFR@09 [facility] Gentamicin Sulfate 1 applic 09/25/24 21:00 09/26/24 21:48 Gentamicin Sulfate 0.1% Cr 15 Gm Tube TOPICAL 1 applic QHS [facility] Administration Glucagon 1 mg 09/25/24 09:22 Glucagon For Inj 1 Mg Vial IM PRN PRN Hypoglycemia Protocol Glucose 15 gm 09/25/24 09:22 Glucose Oral Gel 15 Gm Of Glucse In 37.5 Gm Tube PO PRN PRN Hypoglycemia Protocol Heparin Sodium (Porcine) 5,000 units 09/25/24 09:25 09/26/24 21:04 Heparin Sodium 5,000 Units/Ml Vial SUB-Q Not Given Q12HR [facility] Heparin Sodium (Porcine) 4,000 units 09/26/24 13:56 09/27/24 06:37 Heparin Sodium 5,000 Units/Ml Vial IV PUSH 4,000 units PRN PRN Administration aPTT less than 55 seconds Heparin Sodium (Porcine) 2,500 units 09/26/24 13:56 Heparin Sodium 5,000 Units/Ml Vial IV PUSH PRN PRN aPTT 55 - 70 seconds Dextrose 1,000 mls @ 100 mls/hr 09/25/24 09:22 Dextrose 5% 1,000 Ml IVPB PRN PRN Hypoglycemia Protocol Heparin Sodium/Dextrose 25,000 units in 250 mls @ 14 mls/hr 09/26/24 14:00 09/27/24 06:38 Heparin Sodium/D5w 100 Units/Ml IV CONT 1,400 units/hr .[id number] [facility] 14 mls/hr Titration Protocol 1,400 UNITS/HR Meropenem 1 gm in 100 mls @ 200 mls/hr 09/26/24 20:00 09/26/24 21:30 IVPB Infused Q24H [facility] Infusion Insulin Aspart 2 - 5 units 09/26/24 06:30 09/27/24 06:37 Insulin Aspart (*Bkc) 100 Units/Ml SUB-Q 5 units ACHS [facility] Administration Protocol Insulin Glargine 12 units 09/25/24 21:00 09/26/24 21:01 Insulin Glargine (*Bkc) 100 Units/Ml 0.15 units/kg (12 units) 12 units SUB-Q Administration HS [facility] Tenapanor [Xphozah] 30 mg 09/26/24 21:00 09/26/24 21:07 30 Mg Tablet) PO 10/26/24 20:59 30 mg Q12HR [facility] Administration Pantoprazole Sodium 40 mg 09/25/24 21:00 09/26/24 21:05 Pantoprazole 40 Mg Tablet PO 40 mg Q12HR [facility] Administration Perflutren Lipid Microsphere 0 ml 09/25/24 09:21 Perflutren Lipid Microspheres 1.5 Ml Vial Diluted To 10 Ml Total Volume IV PUSH 09/28/24 09:22 ONCE PRN adequate visualization Protocol Rosuvastatin Calcium 20 mg 09/26/24 09:00 09/26/24 08:21 Rosuvastatin 20 Mg Tablet PO 20 mg DAILY [facility] Administration Sevelamer Carbonate 1,600 mg 09/27/24 08:00 Sevelamer Carbonate 800 Mg Tablet PO TIDWM [facility] Temazepam 7.5 mg 09/26/24 21:00 09/26/24 21:05 Temazepam (*Crx) 7.5 Mg Capsule PO 10/26/24 20:59 7.5 mg HS [facility] Administration Trazodone HCl 50 mg 09/26/24 21:00 09/26/24 21:05 Trazodone Hcl 50 Mg Tablet PO 50 mg HS [facility] Administration Vitamin B Complex/Folic Acid 1 cap 09/26/24 09:00 09/26/24 08:22 Vitamin B Cmplx/Vit C/Folic Ac 1 Capsule PO 1 cap QAM [facility] Administration Vitamin D 4,000 units 09/26/24 09:00 09/26/24 08:19 Cholecalciferol 1,000 Units Tablet PO 4,000 units DAILY [facility] Administration Radiology Results: ITS Impressions Head CT 09/24/24 20:52 IMPRESSION: No acute intracranial process. Chest/Abdomen/Pelvis CT 09/24/24 20:56 IMPRESSION: No acute process detected in the chest. Considerable fat stranding surrounding the left lower quadrant transplant kidney, as can be seen with infection. Chest X-Ray 09/26/24 05:25 Impression: Minimal central pulmonary venous congestive change. Stable Mediport. Labs 09/27/24 05:46 09/27/24 05:46 Labs: Laboratory Results - last 24 hr 09/26/24 09/26/24 09/26/24 07:25 11:35 14:39 WBC RBC Hgb Hct MCV MCH MCHC RDW Plt Count MPV Immature Gran % (Auto) Neut % (Auto) Lymph % (Auto) [place] % (Auto) Eos % (Auto) Baso % (Auto) Lymph # (Auto) [place] # (Auto) Eos # (Auto) Baso # (Auto) Abs Immat Gran (auto) Absolute Neuts (auto) Absolute Nucleated RBC Nucleated RBC % Platelet Estimate % Immature Plt Fraction Hypochromasia Microcytosis Ovalocytes Schistocytes APTT Sodium Potassium Chloride Carbon Dioxide Anion Gap BUN Creatinine Estim Creat Clear Calc Estimated GFR Glucose POC Capillary Glucose 154 H 260 H Calcium Phosphorus Total Bilirubin AST ALT Alkaline Phosphatase Total Protein Albumin Peritoneal Source Peritoneal fluid Peritoneal Color Colorless Peritoneal Appearance Clear Peritoneal RBC < 2000 [place] Nuc Cells 64 [place] Neutrophils 85 H [place] Lymphocytes 5 Peritoneal Monocytes 5 [place] Mesothelial 1 [place] Macrophages 4 Nasal MRSA (PCR) 09/26/24 09/26/24 09/26/24 16:39 20:02 22:23 WBC RBC Hgb Hct MCV MCH MCHC RDW Plt Count MPV Immature Gran % (Auto) Neut % (Auto) Lymph % (Auto) [place] % (Auto) Eos % (Auto) Baso % (Auto) Lymph # (Auto) [place] # (Auto) Eos # (Auto) Baso # (Auto) Abs Immat Gran (auto) Absolute Neuts (auto) Absolute Nucleated RBC Nucleated RBC % Platelet Estimate % Immature Plt Fraction Hypochromasia Microcytosis Ovalocytes Schistocytes APTT 33.4 Sodium Potassium Chloride Carbon Dioxide Anion Gap BUN Creatinine Estim Creat Clear Calc Estimated GFR Glucose POC Capillary Glucose 237 H 255 H Calcium Phosphorus Total Bilirubin AST ALT Alkaline Phosphatase Total Protein Albumin Peritoneal Source Peritoneal Color Peritoneal Appearance Peritoneal RBC [place] Nuc Cells [place] Neutrophils [place] Lymphocytes Peritoneal Monocytes [place] Mesothelial [place] Macrophages Nasal MRSA (PCR) 09/26/24 09/27/24 09/27/24 22:33 05:46 05:46 WBC 5.6 Cancelled RBC 2.80 L Hgb Hct MCV MCH MCHC RDW Plt Count MPV Immature Gran % (Auto) Neut % (Auto) Lymph % (Auto) [place] % (Auto) Eos % (Auto) Baso % (Auto) Lymph # (Auto) [place] # (Auto) Eos # (Auto) Baso # (Auto) Abs Immat Gran (auto) Absolute Neuts (auto) Absolute Nucleated RBC Nucleated RBC % Platelet Estimate % Immature Plt Fraction Hypochromasia Microcytosis Ovalocytes Schistocytes APTT Sodium Potassium Chloride Carbon Dioxide Anion Gap BUN Creatinine Estim Creat Clear Calc Estimated GFR Glucose POC Capillary Glucose Calcium Phosphorus Total Bilirubin AST ALT Alkaline Phosphatase Total Protein Albumin Peritoneal Source Peritoneal Color Peritoneal Appearance Peritoneal RBC [place] Nuc Cells [place] Neutrophils [place] Lymphocytes Peritoneal Monocytes [place] Mesothelial [place] Macrophages Nasal MRSA (PCR) Not detected 09/27/24 09/27/24 09/27/24 05:46 05:46 05:46 WBC RBC Cancelled Hgb 8.0 L Cancelled Hct 26.4 L Cancelled MCV 94.3 MCH MCHC RDW Plt Count MPV Immature Gran % (Auto) Neut % (Auto) Lymph % (Auto) [place] % (Auto) Eos % (Auto) Baso % (Auto) Lymph # (Auto) [place] # (Auto) Eos # (Auto) Baso # (Auto) Abs Immat Gran (auto) Absolute Neuts (auto) Absolute Nucleated RBC Nucleated RBC % Platelet Estimate % Immature Plt Fraction Hypochromasia Microcytosis Ovalocytes Schistocytes APTT Sodium Potassium Chloride Carbon Dioxide Anion Gap BUN Creatinine Estim Creat Clear Calc Estimated GFR Glucose POC Capillary Glucose Calcium Phosphorus Total Bilirubin AST ALT Alkaline Phosphatase Total Protein Albumin Peritoneal Source Peritoneal Color Peritoneal Appearance Peritoneal RBC [place] Nuc Cells [place] Neutrophils [place] Lymphocytes Peritoneal Monocytes [place] Mesothelial [place] Macrophages Nasal MRSA (PCR) 09/27/24 09/27/24 09/27/24 05:46 05:46 05:46 WBC RBC Hgb Hct MCV Cancelled MCH 28.6 Cancelled MCHC 30.3 L Cancelled RDW 19.7 H Plt Count MPV Immature Gran % (Auto) Neut % (Auto) Lymph % (Auto) [place] % (Auto) Eos % (Auto) Baso % (Auto) Lymph # (Auto) [place] # (Auto) Eos # (Auto) Baso # (Auto) Abs Immat Gran (auto) Absolute Neuts (auto) Absolute Nucleated RBC Nucleated RBC % Platelet Estimate % Immature Plt Fraction Hypochromasia Microcytosis Ovalocytes Schistocytes APTT Sodium Potassium Chloride Carbon Dioxide Anion Gap BUN Creatinine Estim Creat Clear Calc Estimated GFR Glucose POC Capillary Glucose Calcium Phosphorus Total Bilirubin AST ALT Alkaline Phosphatase Total Protein Albumin Peritoneal Source Peritoneal Color Peritoneal Appearance Peritoneal RBC [place] Nuc Cells [place] Neutrophils [place] Lymphocytes Peritoneal Monocytes [place] Mesothelial [place] Macrophages Nasal MRSA (PCR) 09/27/24 09/27/24 09/27/24 05:46 05:46 05:46 WBC RBC Hgb Hct MCV MCH MCHC RDW Cancelled Plt Count 83 L Cancelled MPV 11.5 H Cancelled Immature Gran % (Auto) 0.4 Neut % (Auto) 78.7 H Lymph % (Auto) 10.8 L [place] % (Auto) 9.0 H Eos % (Auto) 0.7 Baso % (Auto) 0.4 Lymph # (Auto) 0.60 L [place] # (Auto) 0.5 Eos # (Auto) 0.0 Baso # (Auto) 0.0 Abs Immat Gran (auto) 0.02 Absolute Neuts (auto) 4.4 Absolute Nucleated RBC 0.000 Nucleated RBC % 0.0 Platelet Estimate Decreased % Immature Plt Fraction 4.2 Hypochromasia Microcytosis Ovalocytes Schistocytes APTT Sodium Potassium Chloride Carbon Dioxide Anion Gap BUN Creatinine Estim Creat Clear Calc Estimated GFR Glucose POC Capillary Glucose Calcium Phosphorus Total Bilirubin AST ALT Alkaline Phosphatase Total Protein Albumin Peritoneal Source Peritoneal Color Peritoneal Appearance Peritoneal RBC [place] Nuc Cells [place] Neutrophils [place] Lymphocytes Peritoneal Monocytes [place] Mesothelial [place] Macrophages Nasal MRSA (PCR) 09/27/24 09/27/24 05:46 07:37 WBC RBC Hgb Hct MCV MCH MCHC RDW Plt Count MPV Immature Gran % (Auto) Neut % (Auto) Lymph % (Auto) [place] % (Auto) Eos % (Auto) Baso % (Auto) Lymph # (Auto) [place] # (Auto) Eos # (Auto) Baso # (Auto) Abs Immat Gran (auto) Absolute Neuts (auto) Absolute Nucleated RBC Nucleated RBC % Platelet Estimate % Immature Plt Fraction Cancelled Hypochromasia 1+ Microcytosis 1+ Ovalocytes 1+ Schistocytes None seen APTT 43.8 H Sodium 130 L Potassium 3.6 Chloride 100 Carbon Dioxide 20 L Anion Gap 10 BUN 51 H Creatinine 7.80 H Estim Creat Clear Calc 6 Estimated GFR 5 L Glucose 354 H POC Capillary Glucose 310 H Calcium 8.7 Phosphorus 5.7 H Total Bilirubin 0.5 AST 22 ALT 17 Alkaline Phosphatase 78 Total Protein 6.0 L Albumin 2.7 L Peritoneal Source Peritoneal Color Peritoneal Appearance Peritoneal RBC [place] Nuc Cells [place] Neutrophils [place] Lymphocytes Peritoneal Monocytes [place] Mesothelial [place] Macrophages Nasal MRSA (PCR) ASA Classification/Sedation ASA Classification/Sedation ASA Class: III Emergent: No Risks: Risks, benefits and alternatives explained and patient/family accepted plan for sedation. Patient re-evaluated immediately prior to sedation.
[2024-09-27] MEDS: VITAMIN B CMPLX/VIT C/FOLIC AC 1 CAPSULE 1 CAP PO (09:09)
[2024-09-27] MEDS: SEVELAMER CARBONATE 800 MG TABLET 1600 MG PO ×2 (09:09→16:49)
[2024-09-27] MEDS: CHOLECALCIFEROL 1,000 UNITS TABLET 4000 UNITS PO (09:10)
[2024-09-27] MEDS: calcitrioL 0.25 MCG CAPSULE PO (09:11)
[2024-09-27] MEDS: ROSUVASTATIN 20 MG TABLET PO (09:11)
[2024-09-27] MEDS: allopurinoL 150 MG TABLET PO (09:11)
[2024-09-27] MEDS: PANTOPRAZOLE 40 MG TABLET PO ×2 (09:11→21:35)
[2024-09-27] MEDS: EPOETIN ALFA-EPBX 10,000 UNITS/ML VIAL 10000 UNITS SUB-Q (09:16)
[2024-09-27 09:53] LABS: Vancomycin Trough 21.1 ug/mL (10.0-20.0)
--- NOTE | 2024-09-27 10:30 | P.PNNP_ITS ---
Progress Note: A&P Assessment and Plan (1) End stage renal disease: Code(s): N18.6 - End stage renal disease Status: Resolved Assessment and Plan: * continue nightly CCPD while hospitalized * follow electrolytes, volume status, and clearance * adjust PD presciption as needed (2) Sepsis: Code(s): A41.9 - Sepsis, unspecified organism Status: Acute Assessment and Plan: * suspected on admission with N/V/D + abdominal tenderness + altered mental status * UA not indicative of infection (and hence no urine culture done) * however, has a history of ESBL E.coli UTIs * noted perinephric stranding (around transplant kidney) on admission CT * no evidence of other acute infection by imaging * PD fluid analysis noted * follow cultures (see #3) * follow trend of hemodynamics (3) Bacteremia: Code(s): R78.81 - Bacteremia Status: Resolved Assessment and Plan: * noted blood cultures with Staphylococcus aureus * source not clear: * peritonnitis (?) -- PD fluid analysis noted (high neutrophils present) - HOWEVER, PD fluid sample collected AFTER antibiotics given (so this could reflect partially treated peritonitis); PD fluid cultures negative * transplant kidney (?) -- considerable fat stranding surrounding the left lower quadrant transplant kidney * mediport (?) * other (?) * repeat blood cultures pending * on antibiotics (4) NSTEMI (non-ST elevated myocardial infarction): Code(s): I21.4 - Non-ST elevation (NSTEMI) myocardial infarction Status: Acute Assessment and Plan: * suspected based on elevated troponins * however, chest pain symptoms are somewhat atypical * on heparin gtt * Echo noted with EF 30 - 35% (ischemic versus non-ischemic?) * Cardiology following * cardiac catheterization later today (5) Nausea, vomiting, and diarrhea: Code(s): R11.2 - Nausea with vomiting, unspecified; R19.7 - Diarrhea, unspecified Status: Acute Assessment and Plan: * noted by history * possibly secondary to #2 * symptoms better at this time * PRN IV antiemetics * follow symptoms (6) Hypertension: Qualifiers: Hypertension type: primary hypertension Qualified Code(s): I10 - Essential (primary) hypertension Code(s): I10 - Essential (primary) hypertension Status: Chronic Assessment and Plan: * reasonable control at this time * follow trend of hemodynamics (7) Chronic anemia: Code(s): D64.9 - Anemia, unspecified Status: Chronic Assessment and Plan: * due to ESRD * on Retacrit while hospitalized * however, acute illness/infection may limit effectiveness of DANE * follow trend of H/H (8) Type 2 diabetes mellitus: Qualifiers: 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 Subjective Date/time seen: 09/27/24 10:30 Interval history: Follow-up for end stage renal disease on peritoneal dialysis. Tolerated peritoenal dialysis treatment last night without any issues or problems ([facility]PD supervised and seen at 10:20AM); breathing/respiratory status seems better at the time of my visit; tentatively scheduled for cardiac catheterization later this morning/early this afternoon; no apparent distress noted. Exam 2 Narrative: General: WD/WN female in NAD Heart: normal S1 and S2; no rub Lungs: clear anteriorly; decreased at bases Abdomen: soft, nontender, nondistended, positive bowel sounds Extremities: no cyanosis or clubbing; no edema Skin: warm and intact Objective Data Vital Signs Vital Signs: Vital Signs Temp Pulse Pulse Resp BP Pulse Ox O2 Del Method 09/27/24 10:00 107 H 09/27/24 07:36 98.3 F 106 H 20 123/77 95 09/27/24 07:22 98.9 F 113 H 20 110/71 09/27/24 06:00 107 H 09/27/24 04:00 115 H 20 94 Room Air 09/27/24 04:00 115 H 09/27/24 03:51 98.9 F 113 H 20 110/71 96 09/27/24 02:00 111 H 09/27/24 00:00 108 H 20 94 Room Air 09/27/24 00:00 108 H 09/26/24 23:39 100.3 F H 110 H 24 H 121/69 95 09/26/24 22:00 105 H 09/26/24 20:00 99 09/26/24 20:00 100 20 94 Room Air 09/26/24 20:00 99.5 F 100 20 111/66 94 09/26/24 18:00 107 H Intake/Output Intake/Output: Intake & Output 09/24/24 09/25/24 09/26/24 09/27/24 23:59 23:59 23:59 23:59 Intake Total 2450 1180 1539.8 824.8 Output Total 520 295 3878 1580 Balance 2350 880 349.8 -755.2 Meds/Results Medications: Active Medications Generic Name Dose Route Start Last Admin Trade Name Freq PRN Reason Stop Dose Admin Acetaminophen 650 mg 09/25/24 18:05 09/26/24 01:05 Acetaminophen 325 Mg Tablet PO 650 mg Q6H PRN Administration Mild Pain (1-3) or Fever Albuterol 2 puff 09/25/24 16:39 Albuterol Sulfate (*Sp) Aerosol 1 Puff INHALATION QID PRN shortness of breath or wheezing Allopurinol 150 mg 09/26/24 09:00 09/27/24 09:11 Allopurinol 150 Mg Tablet PO 150 mg DAILY JENNIFER Administration Aspirin 81 mg 09/27/24 09:00 09/27/24 08:37 Aspirin 81 Mg Enteric Tablet PO Not Given QAM JENNIFER Calcitriol 0.25 mcg 09/26/24 09:00 09/27/24 09:11 Calcitriol 0.25 Mcg Capsule PO 0.25 mcg DAILY JENNIFER Administration Cinacalcet 60 mg 09/26/24 21:00 09/26/24 21:04 Cinacalcet 30 Mg Tablet PO 60 mg HS JENNIFER Administration Cyclobenzaprine HCl 5 mg 09/26/24 13:07 Cyclobenzaprine Hcl 5 Mg Tablet PO TID PRN muscle spasm Dextrose 12.5 gm 09/25/24 09:22 Dextrose 50% 25 Gm/50 Ml Syringe IV PUSH PRN PRN Hypoglycemia Protocol Doxazosin Mesylate 4 mg 09/26/24 21:00 09/26/24 21:06 Doxazosin Mesylate 4 Mg Tablet PO 4 mg HS JENNIFER Administration Epoetin Orestes-epbx 10,000 units 09/27/24 09:00 09/27/24 09:16 Epoetin Orestes-Epbx 10,000 Units/Ml Vial SUB-Q 10,000 units [id number]@09 JENNIFER Administration Furosemide 20 mg 09/28/24 09:00 Furosemide 20 Mg Tablet PO DAILY JENNIFER Gentamicin Sulfate 1 applic 09/25/24 21:00 09/26/24 21:48 Gentamicin Sulfate 0.1% Cr 15 Gm Tube TOPICAL 1 applic QHS JENNIFER Administration Glucagon 1 mg 09/25/24 09:22 Glucagon For Inj 1 Mg Vial IM PRN PRN Hypoglycemia Protocol Glucose 15 gm 09/25/24 09:22 Glucose Oral Gel 15 Gm Of Glucse In 37.5 Gm Tube PO PRN PRN Hypoglycemia Protocol Heparin Sodium (Porcine) 5,000 units 09/25/24 09:25 09/26/24 21:04 Heparin Sodium 5,000 Units/Ml Vial SUB-Q Not Given Q12HR JENNIFER Dextrose 1,000 mls @ 100 mls/hr 09/25/24 09:22 Dextrose 5% 1,000 Ml IVPB PRN PRN Hypoglycemia Protocol Cefazolin Sodium 1 gm in 50 mls @ 100 mls/hr 09/27/24 13:00 Ancef 1 Gm/Ns 50 Ml IVPB DAILY JENNIFER Insulin Aspart 2 - 5 units 09/26/24 06:30 09/27/24 12:14 Insulin Aspart (*Bkc) 100 Units/Ml SUB-Q Not Given ACHS [facility] Protocol Insulin Glargine 12 units 09/25/24 21:00 09/26/24 21:01 Insulin Glargine (*Bkc) 100 Units/Ml 0.15 units/kg (12 units) 12 units SUB-Q Administration HS JENNIFER Tenapanor [Xphozah] 30 mg 09/26/24 21:00 09/27/24 09:11 30 Mg Tablet) PO 10/26/24 20:59 Not Given Q12HR JENNIFER Pantoprazole Sodium 40 mg 09/25/24 21:00 09/27/24 09:11 Pantoprazole 40 Mg Tablet PO 40 mg Q12HR JENNIFER Administration Perflutren Lipid Microsphere 0 ml 09/25/24 09:21 Perflutren Lipid Microspheres 1.5 Ml Vial Diluted To 10 Ml Total Volume IV PUSH 09/28/24 09:22 ONCE PRN adequate visualization Protocol Rosuvastatin Calcium 20 mg 09/26/24 09:00 09/27/24 09:11 Rosuvastatin 20 Mg Tablet PO 20 mg DAILY JENNIFER Administration Sevelamer Carbonate 1,600 mg 09/27/24 08:00 09/27/24 10:59 Sevelamer Carbonate 800 Mg Tablet PO Not Given TIDWM JENNIFER Temazepam 7.5 mg 09/26/24 21:00 09/26/24 21:05 Temazepam (*Crx) 7.5 Mg Capsule PO 10/26/24 20:59 7.5 mg HS JENNIFER Administration Trazodone HCl 50 mg 09/26/24 21:00 09/26/24 21:05 Trazodone Hcl 50 Mg Tablet PO 50 mg HS JNENIFER Administration Vitamin B Complex/Folic Acid 1 cap 09/26/24 09:00 09/27/24 09:09 Vitamin B Cmplx/Vit C/Folic Ac 1 Capsule PO 1 cap QAM JENNIFER Administration Vitamin D 4,000 units 09/26/24 09:00 09/27/24 09:10 Cholecalciferol 1,000 Units Tablet PO 4,000 units DAILY JENNIFER Administration Radiology Results: ITS Impressions Head CT 09/24/24 20:52 IMPRESSION: No acute intracranial process. Chest/Abdomen/Pelvis CT 09/24/24 20:56 IMPRESSION: No acute process detected in the chest. Considerable fat stranding surrounding the left lower quadrant transplant kidney, as can be seen with infection. Chest X-Ray 09/26/24 05:25 Impression: Minimal central pulmonary venous congestive change. Stable Mediport. Labs Labs: Laboratory Tests 09/27/24 05:46 09/27/24 05:46 Calcium 8.7 Phosphorus 5.7 H Total Bilirubin 0.5 AST 22 ALT 17 Alkaline Phosphatase 78 Total Protein 6.0 L Albumin 2.7 L Microbiology 09/26/24 07:25 Peritoneal Fluid Anaerobic Culture - Preliminary 09/24/24 21:11 Blood Blood Culture - Final Staphylococcus aureus 09/24/24 22:53 Blood Blood Culture - Final Staphylococcus aureus
[2024-09-27] MEDS: HEPARIN SOD/D5W 100 UNITS/ML 25,000 UNITS/250 ML BAG 14 UNITS IV CONT (11:48)
[2024-09-27 11:52] LABS: Glucose Point of Care 110 mg/dl (65-105)
[2024-09-27 16:36] LABS: Glucose Point of Care 242 mg/dl (65-105)
--- NOTE | 2024-09-27 16:47 | WPDMODSED ---
Moderate Sedation Note-Pt Data Patient Data Diagnosis: NSTEMI Cardiomyopathy Procedure to be performed/Plan: Left heart catheterization Coronary angiography Allergies Allergy/AdvReac Type Severity Reaction Status Date / Time amoxicillin Allergy Unknown Rash Verified 08/15/24 09:11 clavulanic acid Allergy Unknown RASH Verified 08/15/24 09:11 fentanyl AdvReac Unknown very Verified 08/15/24 09:11 emotional crying levofloxacin AdvReac Unknown Nausea And Verified 08/15/24 09:11 Vomiting Home Medications ?Medication ?Instructions ?Recorded ?Confirmed ?Type aspirin 81 mg tablet,delayed 81 mg PO DAILY 10/24/19 09/25/24 History release allopurinol 100 mg tablet 150 mg PO DAILY 07/22/22 09/25/24 History calcitriol 0.25 mcg capsule 0.25 mcg PO DAILY 07/22/22 09/25/24 History cinacalcet 30 mg tablet 60 mg PO .nightly 07/22/22 09/26/24 History cholecalciferol (vitamin D3) 100 100 mcg PO DAILY 08/09/22 09/25/24 History mcg (4,000 unit) tablet metoprolol succinate 50 mg 50 mg PO BID 08/09/22 09/25/24 History tablet,extended release 24 hr nifedipine 30 mg tablet,extended 60 mg PO BID 08/09/22 09/25/24 History release albuterol sulfate 90 mcg/actuation 2 inh inhalation QID PRN shortness 12/02/23 09/25/24 Rx aerosol inhaler of breath or wheezing #8.5 grams bumetanide 2 mg tablet 2 mg PO DAILY 12/02/23 09/25/24 History vitamin B complex-vitamin C-folic 1 tablet PO DAILY 12/02/23 09/25/24 History acid 0.8 mg tablet ([place]) cyclobenzaprine 5 mg tablet 5 mg PO TID PRN muscle spasm 01/15/24 09/25/24 History trazodone 50 mg tablet 50 mg PO HS 01/15/24 09/25/24 History lansoprazole 30 mg capsule,delayed 30 mg PO BID 07/07/24 09/25/24 History release nifedipine 60 mg tablet,extended 60 mg PO BID 07/07/24 09/25/24 History release rosuvastatin 20 mg tablet 20 mg PO DAILY 07/07/24 09/25/24 History sevelamer carbonate 800 mg tablet 1,600 mg PO TID 07/07/24 09/26/24 History sitagliptin phosphate 25 mg tablet 25 mg PO DAILY 07/07/24 09/25/24 History (Shalini) temazepam 7.5 mg capsule 7.5 mg PO HS 07/07/24 09/26/24 History doxazosin 1 mg tablet 4 mg PO DAILY 09/25/24 09/25/24 History tenapanor 30 mg tablet (Xphozah) 30 mg PO BID phosphate binder 09/26/24 09/26/24 History Current Medications: Active Medications Acetaminophen (Acetaminophen 325 Mg Tablet) 650 mg PO Q6H PRN PRN Reason: Mild Pain (1-3) or Fever Last Admin: 09/26/24 01:05 Dose: 650 mg Albuterol (Albuterol Sulfate (*Sp) Aerosol 1 Puff) 2 puff INHALATION QID PRN PRN Reason: shortness of breath or wheezing Allopurinol (Allopurinol 150 Mg Tablet) 150 mg PO DAILY [facility] Last Admin: 09/27/24 09:11 Dose: 150 mg Aspirin (Aspirin 81 Mg Enteric Tablet) 81 mg PO QAM [facility] Last Admin: 09/27/24 08:37 Dose: Not Given Calcitriol (Calcitriol 0.25 Mcg Capsule) 0.25 mcg PO DAILY [facility] Last Admin: 09/27/24 09:11 Dose: 0.25 mcg Cinacalcet (Cinacalcet 30 Mg Tablet) 60 mg PO HS [facility] Last Admin: 09/26/24 21:04 Dose: 60 mg Cyclobenzaprine HCl (Cyclobenzaprine Hcl 5 Mg Tablet) 5 mg PO TID PRN PRN Reason: muscle spasm Dextrose (Dextrose 50% 25 Gm/50 Ml Syringe) 12.5 gm IV PUSH PRN PRN; Protocol PRN Reason: Hypoglycemia Doxazosin Mesylate (Doxazosin Mesylate 4 Mg Tablet) 4 mg PO HS [facility] Last Admin: 09/26/24 21:06 Dose: 4 mg Epoetin Orestes-epbx (Epoetin Orestes-Epbx 10,000 Units/Ml Vial) 10,000 units SUB-Q MOWEFR@09 [facility] Last Admin: 09/27/24 09:16 Dose: 10,000 units Furosemide (Furosemide 20 Mg Tablet) 20 mg PO DAILY [facility] Gentamicin Sulfate (Gentamicin Sulfate 0.1% Cr 15 Gm Tube) 1 applic TOPICAL QHS [facility] Last Admin: 09/26/24 21:48 Dose: 1 applic Glucagon (Glucagon For Inj 1 Mg Vial) 1 mg IM PRN PRN; Protocol PRN Reason: Hypoglycemia Glucose (Glucose Oral Gel 15 Gm Of Glucse In 37.5 Gm Tube) 15 gm PO PRN PRN; Protocol PRN Reason: Hypoglycemia Heparin Sodium (Porcine) (Heparin Sodium 5,000 Units/Ml Vial) 5,000 units SUB-Q Q12HR [facility] Last Admin: 09/26/24 21:04 Dose: Not Given Dextrose (Dextrose 5% 1,000 Ml) 1,000 mls @ 100 mls/hr IVPB PRN PRN; Protocol PRN Reason: Hypoglycemia Cefazolin Sodium (Ancef 1 Gm/Ns 50 Ml) 1 gm in 50 mls @ 100 mls/hr IVPB DAILY [facility] Insulin Aspart (Insulin Aspart (*Bkc) 100 Units/Ml) 2 - 5 units SUB-Q ACHS [facility]ENN[facility]; Protocol Last Admin: 09/27/24 12:14 Dose: Not Given Insulin Glargine (Insulin Glargine (*Bkc) 100 Units/Ml) 12 units 0.15 units/kg (12 units) SUB-Q HS [facility] Last Admin: 09/26/24 21:01 Dose: 12 units Tenapanor [Xphozah] (30 Mg Tablet)) 30 mg PO Q12HR [facility] Stop: 10/26/24 20:59 Last Admin: 09/27/24 09:11 Dose: Not Given Pantoprazole Sodium (Pantoprazole 40 Mg Tablet) 40 mg PO Q12HR [facility] Last Admin: 09/27/24 09:11 Dose: 40 mg Perflutren Lipid Microsphere (Perflutren Lipid Microspheres 1.5 Ml Vial Diluted To 10 Ml Total Volume) 0 ml IV PUSH ONCE PRN; Protocol PRN Reason: adequate visualization Stop: 09/28/24 09:22 Rosuvastatin Calcium (Rosuvastatin 20 Mg Tablet) 20 mg PO DAILY [facility] Last Admin: 09/27/24 09:11 Dose: 20 mg Sevelamer Carbonate (Sevelamer Carbonate 800 Mg Tablet) 1,600 mg PO TIDWM [facility] Last Admin: 09/27/24 10:59 Dose: Not Given Temazepam (Temazepam (*Crx) 7.5 Mg Capsule) 7.5 mg PO HS [facility] Stop: 10/26/24 20:59 Last Admin: 09/26/24 21:05 Dose: 7.5 mg Trazodone HCl (Trazodone Hcl 50 Mg Tablet) 50 mg PO HS [facility] Last Admin: 09/26/24 21:05 Dose: 50 mg Vitamin B Complex/Folic Acid (Vitamin B Cmplx/Vit C/Folic Ac 1 Capsule) 1 cap PO QAM [facility] Last Admin: 09/27/24 09:09 Dose: 1 cap Vitamin D (Cholecalciferol 1,000 Units Tablet) 4,000 units PO DAILY [facility] Last Admin: 09/27/24 09:10 Dose: 4,000 units Sedation/Anesthesia: No previous sedation/anesthesia problems (including family history). [facility] Past Medical History Medical History Diabetes CKD (chronic kidney disease) Patient on peritoneal dialysis HTN (hypertension) Type 2 diabetes mellitus Thrombocytopenia Chronic anemia Cytomegalovirus Gastroesophageal reflux disease Hypertension End-stage renal disease on hemodialysis Wilm's tumor of right kidney Arthritis Hyperlipidemia Renal transplant recipient Failed transplant now on hemodialysis. Surgical History Surgical History History of hysterectomy History of cholecystectomy History of appendectomy History of renal transplant (09/2018) History of right nephrectomy As a child for Wilms tumor. Family History Family History Mother Family history of thyroid disease Family history of osteoporosis Depression Hypertension Family history of elevated blood lipids Family history of arthritis Family history of chronic obstructive pulmonary disease Family history of Alzheimer's disease Family history of atrial fibrillation Sibling Family history of thyroid disease Family history of hypercholesterolemia Hypertension Father Family history of hypercholesterolemia Hypertension Family history of cardiovascular disease Family history of coronary artery disease Social History Social History Social History: Surrogate medical decision maker: Vitaly Carmela, spouse. Code status: Full code. Smoking status: Never smoker Second hand tobacco smoke exposure: No Alcohol intake: never Alcohol use details: Occasional Substance use: never Substance use type: does not use Do You Feel Safe in your Home?: Yes Lack of Transportation: No Lack of Food: Never True Current Housing: I Have Housing Concerned About Future Housing: No Difficulty Paying Gas/Electric Bills: No Difficulty Paying for Meds: No Currently Unemployed: No Education: Associate Degree Difficulty w/ Childcare or Family Care: No Living arrangements: alone Additional living arrangements comments: Lives in [place] with spouse. 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 Spiritual care concerns: No Mod Sed Physical Exam Physical Exam Pre Procedural Exam: Normal: Appearance, Eyes, Ears, Nose, Neck, Throat, Airway, Lungs, Heart Size, Heart Rate, Heart Rhythm, Neuro Exam, Abdomen, Liver, Kidneys, Spleen, Breasts, Genitalia, Extremities and Skin Hours since solid foods: 8 Hours since liquid intake: 8 Mallampati Classification: class II Internal Medicine - PN: Obj Da Vital Signs Vital Signs: Vital Signs - 24 hr 09/26/24 18:00 09/26/24 20:00 09/26/24 20:00 Temperature 37.5 C Pulse Rate 107 H 100 100 Pulse Rate [Right Pedal (Dorsalis Pedis) Palpation] Respiratory Rate 20 20 Blood Pressure 111/66 Pulse Oximetry 94 94 Oxygen Delivery Room Air 09/26/24 20:00 09/26/24 22:00 09/26/24 23:39 Temperature 37.9 C H Pulse Rate 99 105 H 110 H Pulse Rate [Right Pedal (Dorsalis Pedis) Palpation] Respiratory Rate 24 H Blood Pressure 121/69 Pulse Oximetry 95 Oxygen Delivery 09/27/24 00:00 09/27/24 00:00 09/27/24 02:00 Temperature Pulse Rate 108 H 108 H 111 H Pulse Rate [Right Pedal (Dorsalis Pedis) Palpation] Respiratory Rate 20 Blood Pressure Pulse Oximetry 94 Oxygen Delivery Room Air 09/27/24 03:51 09/27/24 04:00 09/27/24 04:00 Temperature 37.2 C Pulse Rate 113 H 115 H 115 H Pulse Rate [Right Pedal (Dorsalis Pedis) Palpation] Respiratory Rate 20 20 Blood Pressure 110/71 Pulse Oximetry 96 94 Oxygen Delivery Room Air 09/27/24 06:00 09/27/24 07:22 09/27/24 07:36 Temperature 37.2 C 36.8 C Pulse Rate 107 H 113 H 106 H Pulse Rate [Right Pedal (Dorsalis Pedis) Palpation] Respiratory Rate 20 20 Blood Pressure 110/71 123/77 Pulse Oximetry 95 Oxygen Delivery 09/27/24 10:00 09/27/24 11:32 09/27/24 12:00 Temperature 37.5 C Pulse Rate 107 H 105 H 104 H Pulse Rate [Right Pedal (Dorsalis Pedis) Palpation] Respiratory Rate 20 Blood Pressure 126/76 Pulse Oximetry 96 Oxygen Delivery 09/27/24 13:47 09/27/24 13:47 09/27/24 14:00 Temperature Pulse Rate 112 H 105 H Pulse Rate [Right Pedal (Dorsalis Pedis) Palpation] 112 H Respiratory Rate 21 H 24 H Blood Pressure 131/84 133/79 Pulse Oximetry 94 97 Oxygen Delivery Room Air 09/27/24 14:00 09/27/24 14:15 09/27/24 14:15 Temperature Pulse Rate 106 H Pulse Rate [Right Pedal (Dorsalis Pedis) Palpation] 104 H 104 H Respiratory Rate 20 Blood Pressure 126/80 Pulse Oximetry 96 Oxygen Delivery Room Air 09/27/24 14:30 09/27/24 14:30 09/27/24 14:45 Temperature Pulse Rate 103 H 113 H Pulse Rate [Right Pedal (Dorsalis Pedis) Palpation] 104 H Respiratory Rate 23 H 24 H Blood Pressure 120/81 141/87 H Pulse Oximetry 96 94 Oxygen Delivery Room Air Room Air 09/27/24 14:45 09/27/24 15:45 Temperature 37.5 C Pulse Rate 101 H Pulse Rate [Right Pedal (Dorsalis Pedis) Palpation] 113 H Respiratory Rate 20 Blood Pressure 126/81 Pulse Oximetry 100 Oxygen Delivery Intake/Output Intake/Output: Intake & Output 09/24/24 09/25/24 09/26/24 09/27/24 23:59 23:59 23:59 23:59 Intake Total 2450 1180 1539.8 824.8 Output Total 979 217 4836 1580 Balance 2350 880 349.8 -755.2 Meds/Results Medications: Active Medications Generic Name Dose Route Start Last Admin Trade Name Freq PRN Reason Stop Dose Admin Acetaminophen 650 mg 09/25/24 18:05 09/26/24 01:05 Acetaminophen 325 Mg Tablet PO 650 mg Q6H PRN Administration Mild Pain (1-3) or Fever Albuterol 2 puff 09/25/24 16:39 Albuterol Sulfate (*Sp) Aerosol 1 Puff INHALATION QID PRN shortness of breath or wheezing Allopurinol 150 mg 09/26/24 09:00 09/27/24 09:11 Allopurinol 150 Mg Tablet PO 150 mg DAILY [facility] Administration Aspirin 81 mg 09/27/24 09:00 09/27/24 08:37 Aspirin 81 Mg Enteric Tablet PO Not Given QAM [facility] Calcitriol 0.25 mcg 09/26/24 09:00 09/27/24 09:11 Calcitriol 0.25 Mcg Capsule PO 0.25 mcg DAILY [facility] Administration Cinacalcet 60 mg 09/26/24 21:00 09/26/24 21:04 Cinacalcet 30 Mg Tablet PO 60 mg HS [facility] Administration Cyclobenzaprine HCl 5 mg 09/26/24 13:07 Cyclobenzaprine Hcl 5 Mg Tablet PO TID PRN muscle spasm Dextrose 12.5 gm 09/25/24 09:22 Dextrose 50% 25 Gm/50 Ml Syringe IV PUSH PRN PRN Hypoglycemia Protocol Doxazosin Mesylate 4 mg 09/26/24 21:00 09/26/24 21:06 Doxazosin Mesylate 4 Mg Tablet PO 4 mg HS [facility] Administration Epoetin Orestes-epbx 10,000 units 09/27/24 09:00 09/27/24 09:16 Epoetin Orestes-Epbx 10,000 Units/Ml Vial SUB-Q 10,000 units MOWEFR@09 [facility] Administration Furosemide 20 mg 09/28/24 09:00 Furosemide 20 Mg Tablet PO DAILY [facility] Gentamicin Sulfate 1 applic 09/25/24 21:00 09/26/24 21:48 Gentamicin Sulfate 0.1% Cr 15 Gm Tube TOPICAL 1 applic QHS [facility] Administration Glucagon 1 mg 09/25/24 09:22 Glucagon For Inj 1 Mg Vial IM PRN PRN Hypoglycemia Protocol Glucose 15 gm 09/25/24 09:22 Glucose Oral Gel 15 Gm Of Glucse In 37.5 Gm Tube PO PRN PRN Hypoglycemia Protocol Heparin Sodium (Porcine) 5,000 units 09/25/24 09:25 09/26/24 21:04 Heparin Sodium 5,000 Units/Ml Vial SUB-Q Not Given Q12HR [facility] Dextrose 1,000 mls @ 100 mls/hr 09/25/24 09:22 Dextrose 5% 1,000 Ml IVPB PRN PRN Hypoglycemia Protocol Cefazolin Sodium 1 gm in 50 mls @ 100 mls/hr 09/27/24 13:00 Ancef 1 Gm/Ns 50 Ml IVPB DAILY [facility] Insulin Aspart 2 - 5 units 09/26/24 06:30 09/27/24 12:14 Insulin Aspart (*Bkc) 100 Units/Ml SUB-Q Not Given ACHS [facility] Protocol Insulin Glargine 12 units 09/25/24 21:00 09/26/24 21:01 Insulin Glargine (*Bkc) 100 Units/Ml 0.15 units/kg (12 units) 12 units SUB-Q Administration HS [facility] Tenapanor [Xphozah] 30 mg 09/26/24 21:00 09/27/24 09:11 30 Mg Tablet) PO 10/26/24 20:59 Not Given Q12HR [facility] Pantoprazole Sodium 40 mg 09/25/24 21:00 09/27/24 09:11 Pantoprazole 40 Mg Tablet PO 40 mg Q12HR [facility] Administration Perflutren Lipid Microsphere 0 ml 09/25/24 09:21 Perflutren Lipid Microspheres 1.5 Ml Vial Diluted To 10 Ml Total Volume IV PUSH 09/28/24 09:22 ONCE PRN adequate visualization Protocol Rosuvastatin Calcium 20 mg 09/26/24 09:00 09/27/24 09:11 Rosuvastatin 20 Mg Tablet PO 20 mg DAILY [facility] Administration Sevelamer Carbonate 1,600 mg 09/27/24 08:00 09/27/24 10:59 Sevelamer Carbonate 800 Mg Tablet PO Not Given TIDWM [facility] Temazepam 7.5 mg 09/26/24 21:00 09/26/24 21:05 Temazepam (*Crx) 7.5 Mg Capsule PO 10/26/24 20:59 7.5 mg HS [facility] Administration Trazodone HCl 50 mg 09/26/24 21:00 09/26/24 21:05 Trazodone Hcl 50 Mg Tablet PO 50 mg HS [facility] Administration Vitamin B Complex/Folic Acid 1 cap 09/26/24 09:00 09/27/24 09:09 Vitamin B Cmplx/Vit C/Folic Ac 1 Capsule PO 1 cap QAM [facility] Administration Vitamin D 4,000 units 09/26/24 09:00 09/27/24 09:10 Cholecalciferol 1,000 Units Tablet PO 4,000 units DAILY [facility] Administration Radiology Results: ITS Impressions Head CT 09/24/24 20:52 IMPRESSION: No acute intracranial process. Chest/Abdomen/Pelvis CT 09/24/24 20:56 IMPRESSION: No acute process detected in the chest. Considerable fat stranding surrounding the left lower quadrant transplant kidney, as can be seen with infection. Chest X-Ray 09/26/24 05:25 Impression: Minimal central pulmonary venous congestive change. Stable Mediport. Labs 09/27/24 05:46 09/27/24 05:46 Labs: Laboratory Results - last 24 hr 09/26/24 09/26/24 09/26/24 20:02 22:23 22:33 WBC RBC Hgb Hct MCV MCH MCHC RDW Plt Count MPV Immature Gran % (Auto) Neut % (Auto) Lymph % (Auto) [place] % (Auto) Eos % (Auto) Baso % (Auto) Lymph # (Auto) [place] # (Auto) Eos # (Auto) Baso # (Auto) Abs Immat Gran (auto) Absolute Neuts (auto) Absolute Nucleated RBC Nucleated RBC % Platelet Estimate % Immature Plt Fraction Hypochromasia Microcytosis Ovalocytes Schistocytes APTT 33.4 Sodium Potassium Chloride Carbon Dioxide Anion Gap BUN Creatinine Estim Creat Clear Calc Estimated GFR Glucose POC Capillary Glucose 255 H Calcium Phosphorus Total Bilirubin AST ALT Alkaline Phosphatase Total Protein Albumin Nasal MRSA (PCR) Not detected Vancomycin Trough 09/27/24 09/27/24 09/27/24 05:46 05:46 05:46 WBC 5.6 Cancelled RBC 2.80 L Cancelled Hgb 8.0 L Hct MCV MCH MCHC RDW Plt Count MPV Immature Gran % (Auto) Neut % (Auto) Lymph % (Auto) [place] % (Auto) Eos % (Auto) Baso % (Auto) Lymph # (Auto) [place] # (Auto) Eos # (Auto) Baso # (Auto) Abs Immat Gran (auto) Absolute Neuts (auto) Absolute Nucleated RBC Nucleated RBC % Platelet Estimate % Immature Plt Fraction Hypochromasia Microcytosis Ovalocytes Schistocytes APTT Sodium Potassium Chloride Carbon Dioxide Anion Gap BUN Creatinine Estim Creat Clear Calc Estimated GFR Glucose POC Capillary Glucose Calcium Phosphorus Total Bilirubin AST ALT Alkaline Phosphatase Total Protein Albumin Nasal MRSA (PCR) Vancomycin Trough 09/27/24 09/27/24 09/27/24 05:46 05:46 05:46 WBC RBC Hgb Cancelled Hct 26.4 L Cancelled MCV 94.3 Cancelled MCH 28.6 MCHC RDW Plt Count MPV Immature Gran % (Auto) Neut % (Auto) Lymph % (Auto) [place] % (Auto) Eos % (Auto) Baso % (Auto) Lymph # (Auto) [place] # (Auto) Eos # (Auto) Baso # (Auto) Abs Immat Gran (auto) Absolute Neuts (auto) Absolute Nucleated RBC Nucleated RBC % Platelet Estimate % Immature Plt Fraction Hypochromasia Microcytosis Ovalocytes Schistocytes APTT Sodium Potassium Chloride Carbon Dioxide Anion Gap BUN Creatinine Estim Creat Clear Calc Estimated GFR Glucose POC Capillary Glucose Calcium Phosphorus Total Bilirubin AST ALT Alkaline Phosphatase Total Protein Albumin Nasal MRSA (PCR) Vancomycin Trough 09/27/24 09/27/24 09/27/24 05:46 05:46 05:46 WBC RBC Hgb Hct MCV MCH Cancelled MCHC 30.3 L Cancelled RDW 19.7 H Cancelled Plt Count 83 L MPV Immature Gran % (Auto) Neut % (Auto) Lymph % (Auto) [place] % (Auto) Eos % (Auto) Baso % (Auto) Lymph # (Auto) [place] # (Auto) Eos # (Auto) Baso # (Auto) Abs Immat Gran (auto) Absolute Neuts (auto) Absolute Nucleated RBC Nucleated RBC % Platelet Estimate % Immature Plt Fraction Hypochromasia Microcytosis Ovalocytes Schistocytes APTT Sodium Potassium Chloride Carbon Dioxide Anion Gap BUN Creatinine Estim Creat Clear Calc Estimated GFR Glucose POC Capillary Glucose Calcium Phosphorus Total Bilirubin AST ALT Alkaline Phosphatase Total Protein Albumin Nasal MRSA (PCR) Vancomycin Trough 09/27/24 09/27/24 09/27/24 05:46 05:46 05:46 WBC RBC Hgb Hct MCV MCH MCHC RDW Plt Count Cancelled MPV 11.5 H Cancelled Immature Gran % (Auto) 0.4 Neut % (Auto) 78.7 H Lymph % (Auto) 10.8 L [place] % (Auto) 9.0 H Eos % (Auto) 0.7 Baso % (Auto) 0.4 Lymph # (Auto) 0.60 L [place] # (Auto) 0.5 Eos # (Auto) 0.0 Baso # (Auto) 0.0 Abs Immat Gran (auto) 0.02 Absolute Neuts (auto) 4.4 Absolute Nucleated RBC 0.000 Nucleated RBC % 0.0 Platelet Estimate Decreased % Immature Plt Fraction 4.2 Cancelled Hypochromasia 1+ Microcytosis 1+ Ovalocytes 1+ Schistocytes None seen APTT 43.8 H Sodium 130 L Potassium 3.6 Chloride 100 Carbon Dioxide 20 L Anion Gap 10 BUN 51 H Creatinine 7.80 H Estim Creat Clear Calc 6 Estimated GFR 5 L Glucose 354 H POC Capillary Glucose Calcium 8.7 Phosphorus 5.7 H Total Bilirubin 0.5 AST 22 ALT 17 Alkaline Phosphatase 78 Total Protein 6.0 L Albumin 2.7 L Nasal MRSA (PCR) Vancomycin Trough 09/27/24 09/27/24 09/27/24 07:37 08:53 11:31 WBC RBC Hgb Hct MCV MCH MCHC RDW Plt Count MPV Immature Gran % (Auto) Neut % (Auto) Lymph % (Auto) [place] % (Auto) Eos % (Auto) Baso % (Auto) Lymph # (Auto) [place] # (Auto) Eos # (Auto) Baso # (Auto) Abs Immat Gran (auto) Absolute Neuts (auto) Absolute Nucleated RBC Nucleated RBC % Platelet Estimate % Immature Plt Fraction Hypochromasia Microcytosis Ovalocytes Schistocytes APTT Sodium Potassium Chloride Carbon Dioxide Anion Gap BUN Creatinine Estim Creat Clear Calc Estimated GFR Glucose POC Capillary Glucose 310 H 110 H Calcium Phosphorus Total Bilirubin AST ALT Alkaline Phosphatase Total Protein Albumin Nasal MRSA (PCR) Vancomycin Trough 21.1 H 09/27/24 09/27/24 12:24 16:21 WBC RBC Hgb Hct MCV MCH MCHC RDW Plt Count MPV Immature Gran % (Auto) Neut % (Auto) Lymph % (Auto) [place] % (Auto) Eos % (Auto) Baso % (Auto) Lymph # (Auto) [place] # (Auto) Eos # (Auto) Baso # (Auto) Abs Immat Gran (auto) Absolute Neuts (auto) Absolute Nucleated RBC Nucleated RBC % Platelet Estimate % Immature Plt Fraction Hypochromasia Microcytosis Ovalocytes Schistocytes APTT Cancelled Sodium Potassium Chloride Carbon Dioxide Anion Gap BUN Creatinine Estim Creat Clear Calc Estimated GFR Glucose POC Capillary Glucose 242 H Calcium Phosphorus Total Bilirubin AST ALT Alkaline Phosphatase Total Protein Albumin Nasal MRSA (PCR) Vancomycin Trough ASA Classification/Sedation ASA Classification/Sedation ASA Class: III Emergent: No Risks: Risks, benefits and alternatives explained and patient/family accepted plan for sedation. Patient re-evaluated immediately prior to sedation.
--- NOTE | 2024-09-27 16:49 | P.PCNCC_ITS ---
Cardiac Cath Procedure Note Date of procedure:: 09/27/24 Performing physician:: Pollo Lo MD Indication:: NSTEMI Cardiomyopathy Procedure Procedure performed:: Left heart catheterization Coronary angiography Sedation/Medication given:: 1 mg of Versed 25 mcg of fentanyl Access site:: Right common femoral artery Estimated blood loss:: 10 cc Procedure note:: After informed consent patient was brought into the laboratory chemical assistant and she was draped and prepped in usual manner. Moderate sedation was given and the right groin infiltrated using 1% lidocaine. Six [place] sheath was inserted using a m icropuncture needle using modified Seldinger technique. Selective left coronary angiogram was done with a JL4 catheter with the tip of the catheter placed in the left main coronary artery. Selective right coronary angiogram was done using JR4 catheter with the tip of the catheter placed in the right coronary artery ostium. After that of flexors pigtail catheter was advanced across the aortic valve into the left ventricle with measurement of the LVEDP in measurement of gradients across the aortic valve a left ventriculogram and aortic root shot was also taken to see if there is any anomalous origin of the left circumflex artery. At the end of the procedure RFA hemostasis was obtained with an Angio-Seal Findings:: 1 LVEDP 30 mm Hg, no significant LV-AO gradient on pullback. Left ventriculogram shows EF of around 50% 2. Coronary angiography: Right dominant system Left main artery: Very long, large caliber left main artery divides into LAD and possible circumflex artery. No angiographic evidence of atherosclerotic disease Left anterior descending artery: Large caliber transapical vessel which shows no angiographic evidence of atherosclerotic disease Right coronary artery: Large caliber dominant vessel which divides into PDA and PLV branches. No angiographic evidence of atherosclerotic disease Left circumflex artery: It was not clear whether with there was an anomalous origin of the circumflex artery. We were not able to see any origin of the left circumflex artery bed even a left ventriculogram and aortic root shot. The artery which takes off from the left main goes towards the lateral wall Conclusion:: 1. Nonischemic cardiomyopathy 2. Normal LVEDP 3. 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 daily from tomorrow -guideline directed medical therapy for heart failure
[2024-09-27 20:42] LABS: Glucose Point of Care 351 mg/dl (65-105)
[2024-09-27] MEDS: TEMAZEPAM (*CRX) 7.5 MG CAPSULE PO (21:34)
[2024-09-27] MEDS: DOXAZOSIN MESYLATE 4 MG TABLET PO (21:34)
[2024-09-27] MEDS: CINACALCET 30 MG TABLET 60 MG PO (21:35)
[2024-09-27] MEDS: INSULIN GLARGINE (*BKC) 100 UNITS/ML 12 UNITS SUB-Q (21:35)
[2024-09-27] MEDS: traZODone HCL 50 MG TABLET PO (21:35)
[2024-09-27] MEDS: CYCLOBENZAPRINE HCL 5 MG TABLET PO (21:42)
[2024-09-27] MEDS: TENAPANOR 30 MG 30 EACH PO (21:43)
[2024-09-28] VITALS (15 sets, daily range): BP systolic 130–161; BP diastolic 73–92; PULSE 91–123; RESP 16–20; TEMP 36.5–37.6; O2SAT 96–98
[2024-09-28 05:10] LABS: Basophils Percent Auto 0.5 % (0.2-1.2); Eosinophils Absolute Auto 0.1 K/mm3 (0-0.3); Eosinophils Percent Auto 1.1 % (0-4.4); Hematocrit 26.3 % (37.0-47.0); Hemoglobin 7.9 g/dL (12.0-15.0); Immature Granulocyte Absolute 0.03 K/mm3 (0.00-0.031); Immature Granulocyte Percent A 0.5 % (0-0.5); Lymphocytes Absolute Auto 0.97 K/mm3 (0.9-3.2); Lymphocytes Percent Auto 15.9 % (18.3-44.2); Mean Corpuscular Hemoglobin 28.2 pg (26-34); Mean Corpuscular Volume 93.9 fl (80-100); Mean Platelet Volume 12.2 fl (7.4-10.4); Monocytes Absolute Auto 0.7 K/mm3 (0.1-0.6); Monocytes Percent Auto 11.8 % (2.6-8.5); Neutrophils Absolute Auto 4.3 K/mm3 (1.3-6.7); Neutrophils Percent Auto 70.2 % (45.5-73.1); Platelet Count Result 105 k/mm3 (150-375); Red Cell Distribution Width 19.6 % (11.5-14.5); White Blood Count 6.1 K/mm3 (4.5-10.0)
[2024-09-28 05:33] LABS: Alanine Aminotransferase 17 U/L (6-35); Albumin Level 2.7 g/dL (3.5-5.1); Alkaline Phosphatase 98 U/L (38-126); Anion Gap 7 mmol/L (4-12); Aspartate Amino Transferase 20 U/L (14-36); Bilirubin,Total 0.5 mg/dL (0.2-1.3); Blood Urea Nitrogen 46 mg/dL (7-17); Carbon Dioxide 21 mmol/L (22-30); Chloride 100 mmol/L (98-107); Estimated CRCL calculation 7 ml/min; Estimated Glomerular Filt Rate 5; Glucose 203 mg/dL (65-110); Phosphorus 5.7 mg/dL (2.5-4.5); Potassium 3.3 mmol/L (3.4-5.0); Sodium 128 mmol/L (137-145)
--- NOTE | 2024-09-28 07:35 | P.PNIM_ITS ---
Progress Note: A&P Assessment and Plan (1) Sepsis: Code(s): A41.9 - Sepsis, unspecified organism Status: Acute Assessment and Plan: * Given GI symptoms, abdominal tenderness, and PD catheter, she likely has remberto tonitis secondary to PD. * Has hx of ESBL E. coli UTI in 2021, however urine now shows no signs of infection although she does have perinephric stranding on CT. * No signs of symptoms of pneumonia, sinusitis, bronchitis (CT C/A/P unrevealing). * No signs of symptoms of cellulitis. * Peritoneal fluid analysis reviewed * Started on Ancef due to MSSA. Continue for three weeks. * DC vancomycin * pending results of blood, urine, * Reviewed peritoneal fluid cultures. * Supportive fluids --> PO as now more awake and able to swallow. * Monitor I/O. (2) Type 2 diabetes mellitus: Qualifiers: Chronic kidney disease stage: on chronic dialysis Diabetes mellitus complication detail: with chronic kidney disease Diabetes mellitus complication status: with kidney complications Diabetes mellitus jail insulin use: without watermelon harvesting supervisor use Qualified Code(s): E11.22 - Type 2 diabetes mellitus with diabetic chronic kidney disease; N18.6 - End stage renal disease; Z99.2 - Dependence on renal dialysis Code(s): E11.9 - Type 2 diabetes mellitus without complications Status: Chronic Assessment and Plan: * Basal-bolus insulin regimen with glucose goal 140-180 mg/dl. (3) End-stage renal disease (ESRD): Code(s): N18.6 - End stage renal disease Status: Acute Assessment and Plan: * Nephrology consultation for dialysis management (primary regulatory affairs consultant is Dr. Hope). (4) Chronic anemia: Code(s): D64.9 - Anemia, unspecified Status: Chronic Assessment and Plan: * Related to ESRD and stable (5) Thrombocytopenia: Code(s): D69.6 - Thrombocytopenia, unspecified Status: Chronic Assessment and Plan: * Worsened from baseline of 165K, likely due to sepsis. * Monitor. (6) Hypertension: Qualifiers: Hypertension type: primary hypertension Qualified Code(s): I10 - Essential (primary) hypertension Code(s): I10 - Essential (primary) hypertension Status: Chronic Assessment and Plan: * Continue Metoprolol, Lisinopril, Nifedipine (7) Abnormal EKG: Code(s): R94.31 - Abnormal electrocardiogram [ECG] [EKG] Status: Acute Assessment and Plan: * Abnormalities in anterior leads more pronounced (poor anterior R-wave progression) than in 2021. * Echocardiogram pending * Monitor on telemetry. (8) Elevated troponin I level: Code(s): R79.89 - Other specified abnormal findings of blood chemistry Status: Acute Assessment and Plan: * Elevated baseline due to ESRD, however increase is worrisome for demand (type 2) VA due to sepsis. * Increase metoprolol to limit myocardial oxygen demand. * Continue ASA. * Possible catheterization tomorrow to rule out takotsubo cardiomyopathy * Suspicious for pericarditis as well (9) Hyperlipemia: Code(s): E78.5 - Hyperlipidemia, unspecified Status: Acute Assessment and Plan: * Continue rosuvastatin. (10) Metabolic encephalopathy: Code(s): G93.41 - Metabolic encephalopathy Status: Acute Assessment and Plan: * Clinically due to sepsis. * No focal findings to suggest stroke. * No neck rigidity or tenderness to suggest meningitis or encephalitis. Subjective Date/time seen: 09/28/24 07:35 Interval history: Patient underwent cardiac catheterization which shows nonischemic cardiomyopathy, normal LV ED, normal left main, lad, RCA, most likely on a mess origin of left circumflex, unable to engage OCD ostium. After reviewing the peritoneal fluid analysis and the blood culture patient started on Ancef which will be continued for 3 weeks. Today we repeated the blood culture. BC 09/24 :Positive for Staph.Aureus BC 09/26: Positive for Staph.Aureus BC 09/28: Ordered Review of Systems Review of Systems: ROS unobtainable: Yes unobtainable due to medical condition Exam Narrative: HEENT: PERRL, sclerae nonicteric, pharyngeal mucosa dry, pink, and intact NECK: No JVD, adenopathy, or thyromegaly CHEST: Clear to auscultation. Normal effort. HEART: NL S1/S2, regular, tachycardic, no murmur. ABDOMEN: BS hypoactive, soft, TENDER DIFFUSELY WITHOUT OBVIOUS GUARDING OR REBOUND, PD CATHETER IN PLACE AND SITE APPEARS CLEAN AND DRY. EXTREMITIES: No cyanosis, edema, or clubbing. DP PULSES 2+ BILATERALLY. No ulcerations of erythema of feet. NEUROLOGIC: CN intact and symmetric to inspection. Tone and strength seem symmetric with spontaneous movement in all 4 extremities and turning over in bed and attempting to get out of bed independently. MUSCULOSKELETAL: No gross deformities to visual inspection. PSYCH: Drowsy. Easily aroused. Response to both verbal and tactile stimuli but does not follow directions. Speech is monosyllabic. Objective Data Vital Signs Vital Signs: Vital Signs - 24 hr 09/27/24 07:36 09/27/24 10:00 09/27/24 11:32 Temperature 98.3 F 99.5 F Pulse Rate 106 H 107 H 105 H Pulse Rate [Right Pedal (Dorsalis Pedis) Palpation] Respiratory Rate 20 20 Blood Pressure 123/77 126/76 Pulse Oximetry 95 96 Oxygen Delivery 09/27/24 12:00 09/27/24 13:47 09/27/24 13:47 Temperature Pulse Rate 104 H 112 H Pulse Rate [Right Pedal (Dorsalis Pedis) Palpation] 112 H Respiratory Rate 21 H Blood Pressure 131/84 Pulse Oximetry 94 Oxygen Delivery 09/27/24 14:00 09/27/24 14:00 09/27/24 14:15 Temperature Pulse Rate 105 H 106 H Pulse Rate [Right Pedal (Dorsalis Pedis) Palpation] 104 H Respiratory Rate 24 H 20 Blood Pressure 133/79 126/80 Pulse Oximetry 97 96 Oxygen Delivery Room Air Room Air 09/27/24 14:15 09/27/24 14:30 09/27/24 14:30 Temperature Pulse Rate 103 H Pulse Rate [Right Pedal (Dorsalis Pedis) Palpation] 104 H 104 H Respiratory Rate 23 H Blood Pressure 120/81 Pulse Oximetry 96 Oxygen Delivery Room Air 09/27/24 14:45 09/27/24 14:45 09/27/24 15:45 Temperature 99.5 F Pulse Rate 113 H 101 H Pulse Rate [Right Pedal (Dorsalis Pedis) Palpation] 113 H Respiratory Rate 24 H 20 Blood Pressure 141/87 H 126/81 Pulse Oximetry 94 100 Oxygen Delivery Room Air 09/27/24 16:00 09/27/24 16:45 09/27/24 17:45 Temperature 98.7 F 98.6 F Pulse Rate 116 H 116 H 123 H Pulse Rate [Right Pedal (Dorsalis Pedis) Palpation] Respiratory Rate 20 20 Blood Pressure 142/79 H 121/82 Pulse Oximetry 99 97 Oxygen Delivery 09/27/24 18:00 09/27/24 20:00 09/27/24 20:00 Temperature Pulse Rate 111 H 119 H Pulse Rate [Right Pedal (Dorsalis Pedis) Palpation] Respiratory Rate Blood Pressure Pulse Oximetry Oxygen Delivery Room Air 09/27/24 20:05 09/27/24 22:00 09/28/24 00:00 Temperature 99.7 F H 98.5 F Pulse Rate 120 H 115 H 122 H Pulse Rate [Right Pedal (Dorsalis Pedis) Palpation] Respiratory Rate 16 16 Blood Pressure 137/80 149/73 H Pulse Oximetry 94 98 Oxygen Delivery 09/28/24 00:00 09/28/24 00:00 09/28/24 02:00 Temperature Pulse Rate 106 H 104 H Pulse Rate [Right Pedal (Dorsalis Pedis) Palpation] Respiratory Rate Blood Pressure Pulse Oximetry Oxygen Delivery Room Air 09/28/24 04:00 09/28/24 04:00 09/28/24 04:00 Temperature 99.6 F Pulse Rate 106 H 116 H Pulse Rate [Right Pedal (Dorsalis Pedis) Palpation] Respiratory Rate 20 Blood Pressure 145/92 H Pulse Oximetry 96 Oxygen Delivery Room Air Intake/Output Intake/Output: Intake & Output 09/25/24 09/26/24 09/27/24 09/28/24 23:59 23:59 23:59 23:59 Intake Total 1180 1539.8 1264.8 200 Output Total 300 1190 1580 Balance 880 349.8 -315.2 200 Meds/Results Medications: Active Medications Generic Name Dose Route Start Last Admin Trade Name Freq PRN Reason Stop Dose Admin Acetaminophen 650 mg 09/25/24 18:05 09/26/24 01:05 Acetaminophen 325 Mg Tablet PO 650 mg Q6H PRN Administration Mild Pain (1-3) or Fever Albuterol 2 puff 09/25/24 16:39 Albuterol Sulfate (*Sp) Aerosol 1 Puff INHALATION QID PRN shortness of breath or wheezing Allopurinol 150 mg 09/26/24 09:00 09/27/24 09:11 Allopurinol 150 Mg Tablet PO 150 mg DAILY JENNIFER Administration Aspirin 81 mg 09/27/24 09:00 09/27/24 08:37 Aspirin 81 Mg Enteric Tablet PO Not Given QAM JENNIFER Calcitriol 0.25 mcg 09/26/24 09:00 09/27/24 09:11 Calcitriol 0.25 Mcg Capsule PO 0.25 mcg DAILY JENNIFER Administration Cinacalcet 60 mg 09/26/24 21:00 09/27/24 21:35 Cinacalcet 30 Mg Tablet PO 60 mg HS JENNIFER Administration Cyclobenzaprine HCl 5 mg 09/26/24 13:07 09/27/24 21:42 Cyclobenzaprine Hcl 5 Mg Tablet PO 5 mg TID PRN Administration muscle spasm Dextrose 12.5 gm 09/25/24 09:22 Dextrose 50% 25 Gm/50 Ml Syringe IV PUSH PRN PRN Hypoglycemia Protocol Doxazosin Mesylate 4 mg 09/26/24 21:00 09/27/24 21:34 Doxazosin Mesylate 4 Mg Tablet PO 4 mg HS JENNIFER Administration Epoetin Orestes-epbx 10,000 units 09/27/24 09:00 09/27/24 09:16 Epoetin Orestes-Epbx 10,000 Units/Ml Vial SUB-Q 10,000 units MOWEFR@09 JENNIFER Administration Furosemide 20 mg 09/28/24 09:00 Furosemide 20 Mg Tablet PO DAILY [facility] Gentamicin Sulfate 1 applic 09/25/24 21:00 09/26/24 21:48 Gentamicin Sulfate 0.1% Cr 15 Gm Tube TOPICAL 1 applic QHS JENNIFER Administration Glucagon 1 mg 09/25/24 09:22 Glucagon For Inj 1 Mg Vial IM PRN PRN Hypoglycemia Protocol Glucose 15 gm 09/25/24 09:22 Glucose Oral Gel 15 Gm Of Glucse In 37.5 Gm Tube PO PRN PRN Hypoglycemia Protocol Heparin Sodium (Porcine) 5,000 units 09/25/24 09:25 09/26/24 21:04 Heparin Sodium 5,000 Units/Ml Vial SUB-Q Not Given Q12HR JENNIFER Dextrose 1,000 mls @ 100 mls/hr 09/25/24 09:22 Dextrose 5% 1,000 Ml IVPB PRN PRN Hypoglycemia Protocol Cefazolin Sodium 1 gm in 50 mls @ 100 mls/hr 09/27/24 13:00 09/27/24 16:45 Ancef 1 Gm/Ns 50 Ml IVPB Not Given DAILY [facility] Insulin Aspart 2 - 5 units 09/26/24 06:30 09/27/24 21:36 Insulin Aspart (*Bkc) 100 Units/Ml SUB-Q 5 units ACHS JENNIFER Administration Protocol Insulin Glargine 12 units 09/25/24 21:00 09/27/24 21:35 Insulin Glargine (*Bkc) 100 Units/Ml 0.15 units/kg (12 units) 12 units SUB-Q Administration HS [facility] Tenapanor [Xphozah] 30 mg 09/26/24 21:00 09/27/24 21:43 30 Mg Tablet) PO 10/26/24 20:59 30 mg Q12HR JENNIFER Administration Pantoprazole Sodium 40 mg 09/25/24 21:00 09/27/24 21:35 Pantoprazole 40 Mg Tablet PO 40 mg Q12HR JENNIFER Administration Perflutren Lipid Microsphere 0 ml 09/25/24 09:21 Perflutren Lipid Microspheres 1.5 Ml Vial Diluted To 10 Ml Total Volume IV PUSH 09/28/24 09:22 ONCE PRN adequate visualization Protocol Rosuvastatin Calcium 20 mg 09/26/24 09:00 09/27/24 09:11 Rosuvastatin 20 Mg Tablet PO 20 mg DAILY JENN[facility]ER Administration Sevelamer Carbonate 1,600 mg 09/27/24 08:00 09/27/24 16:49 Sevelamer Carbonate 800 Mg Tablet PO 1,600 mg TIDWM JENNIFER Administration Temazepam 7.5 mg 09/26/24 21:00 09/27/24 21:34 Temazepam (*Crx) 7.5 Mg Capsule PO 10/26/24 20:59 7.5 mg HS [facility] Administration Trazodone HCl 50 mg 09/26/24 21:00 09/27/24 21:35 Trazodone Hcl 50 Mg Tablet PO 50 mg HS [facility] Administration Vitamin B Complex/Folic Acid 1 cap 09/26/24 09:00 09/27/24 09:09 Vitamin B Cmplx/Vit C/Folic Ac 1 Capsule PO 1 cap QAM [facility] Administration Vitamin D 4,000 units 09/26/24 09:00 09/27/24 09:10 Cholecalciferol 1,000 Units Tablet PO 4,000 units DAILY JENNIFER Administration Radiology Results: ITS Impressions Head CT 09/24/24 20:52 IMPRESSION: No acute intracranial process. Chest/Abdomen/Pelvis CT 09/24/24 20:56 IMPRESSION: No acute process detected in the chest. Considerable fat stranding surrounding the left lower quadrant transplant kidney, as can be seen with infection. Chest X-Ray 09/26/24 05:25 Impression: Minimal central pulmonary venous congestive change. Stable Mediport. Labs Labs: Laboratory Results - last 24 hr 09/27/24 09/27/24 09/27/24 07:37 08:53 11:31 WBC RBC Hgb Hct MCV MCH MCHC RDW Plt Count MPV Immature Gran % (Auto) Neut % (Auto) Lymph % (Auto) [place] % (Auto) Eos % (Auto) Baso % (Auto) Lymph # (Auto) [place] # (Auto) Eos # (Auto) Baso # (Auto) Abs Immat Gran (auto) Absolute Neuts (auto) Absolute Nucleated RBC Nucleated RBC % APTT Sodium Potassium Chloride Carbon Dioxide Anion Gap BUN Creatinine Estim Creat Clear Calc Estimated GFR Glucose POC Capillary Glucose 310 H 110 H Calcium Phosphorus Total Bilirubin AST ALT Alkaline Phosphatase Total Protein Albumin Vancomycin Trough 21.1 H 09/27/24 09/27/24 09/27/24 12:24 16:21 20:08 WBC RBC Hgb Hct MCV MCH MCHC RDW Plt Count MPV Immature Gran % (Auto) Neut % (Auto) Lymph % (Auto) [place] % (Auto) Eos % (Auto) Baso % (Auto) Lymph # (Auto) [place] # (Auto) Eos # (Auto) Baso # (Auto) Abs Immat Gran (auto) Absolute Neuts (auto) Absolute Nucleated RBC Nucleated RBC % APTT Cancelled Sodium Potassium Chloride Carbon Dioxide Anion Gap BUN Creatinine Estim Creat Clear Calc Estimated GFR Glucose POC Capillary Glucose 242 H 351 H Calcium Phosphorus Total Bilirubin AST ALT Alkaline Phosphatase Total Protein Albumin Vancomycin Trough 09/28/24 04:28 WBC 6.1 RBC 2.80 L Hgb 7.9 L Hct 26.3 L MCV 93.9 MCH 28.2 MCHC 30.0 L RDW 19.6 H Plt Count 105 L MPV 12.2 H Immature Gran % (Auto) 0.5 Neut % (Auto) 70.2 Lymph % (Auto) 15.9 L [place] % (Auto) 11.8 H Eos % (Auto) 1.1 Baso % (Auto) 0.5 Lymph # (Auto) 0.97 [place] # (Auto) 0.7 H Eos # (Auto) 0.1 Baso # (Auto) 0.0 Abs Immat Gran (auto) 0.03 Absolute Neuts (auto) 4.3 Absolute Nucleated RBC 0.000 Nucleated RBC % 0.0 APTT Sodium 128 L Potassium 3.3 L Chloride 100 Carbon Dioxide 21 L Anion Gap 7 BUN 46 H Creatinine 7.60 H Estim Creat Clear Calc 7 Estimated GFR 5 L Glucose 203 H POC Capillary Glucose Calcium 9.0 Phosphorus 5.7 H Total Bilirubin 0.5 AST 20 ALT 17 Alkaline Phosphatase 98 Total Protein 5.0 L Albumin 2.7 L Vancomycin Trough Quality VTE Prophylaxis VTE prophylaxis: pharmacologic ordered (heparin) Hospitalist MIPS Advance Care Plan I have confirmed that the patient's Advanced Care Plan is present, code status is documented, or surrogate decision maker is listed in patient medical record.: Yes Medication Reconciliation I have utilized all available resources to obtain, update and review the patients current medications (includes all prescriptions, OTC, herbals, cannabis, and nutritional supplements).: Yes
[2024-09-28 08:02] LABS: Glucose Point of Care 139 mg/dl (65-105)
[2024-09-28] MEDS: ceFAZolin 1 GM/NS 50 ML 1 GM/50 ML BAG IVPB (08:48)
[2024-09-28] MEDS: VITAMIN B CMPLX/VIT C/FOLIC AC 1 CAPSULE 1 CAP PO (08:49)
[2024-09-28] MEDS: ROSUVASTATIN 20 MG TABLET PO (08:49)
[2024-09-28] MEDS: PANTOPRAZOLE 40 MG TABLET PO ×2 (08:50→20:31)
[2024-09-28] MEDS: FUROSEMIDE 20 MG TABLET PO (08:50)
[2024-09-28] MEDS: calcitrioL 0.25 MCG CAPSULE PO (08:50)
[2024-09-28] MEDS: CHOLECALCIFEROL 1,000 UNITS TABLET 4000 UNITS PO (08:50)
[2024-09-28] MEDS: allopurinoL 150 MG TABLET PO (08:50)
[2024-09-28] MEDS: SEVELAMER CARBONATE 800 MG TABLET 1600 MG PO ×3 (08:51→18:00)
[2024-09-28] MEDS: TENAPANOR 30 MG 30 EACH PO (08:52)
--- NOTE | 2024-09-28 10:00 | P.PNNP_ITS ---
Progress Note: A&P Assessment and Plan (1) End stage renal disease: Code(s): N18.6 - End stage renal disease Status: Resolved Assessment and Plan: * continue nightly CCPD while hospitalized * follow electrolytes, volume status, and clearance * adjust PD presciption as needed (2) Sepsis: Code(s): A41.9 - Sepsis, unspecified organism Status: Acute Assessment and Plan: * suspected on admission with N/V/D + abdominal tenderness + altered mental status * UA not indicative of infection (and hence no urine culture done) * however, has a history of ESBL E.coli UTIs * noted perinephric stranding (around transplant kidney) on admission CT * no evidence of other acute infection by imaging * PD fluid and blood cultures noted (see #3) * follow trend of hemodynamics (3) Bacteremia: Code(s): R78.81 - Bacteremia Status: Resolved Assessment and Plan: * blood cultures noted: * on 09/24/24 - Staphylococcus aureus * on 09/26/23 - Staphylococcus aureus * 09/28/23 culture done today * source not clear: * peritonitis (?) -- PD fluid analysis noted (high neutrophils present) - H OWEVER, PD fluid sample collected AFTER antibiotics given (so this could reflect partially treated peritonitis); PD fluid cultures negative * transplant kidney (?) -- considerable fat stranding surrounding the left lower quadrant transplant kidney * mediport (?) * other (?) * culture data noted * on antibiotics (4) NSTEMI (non-ST elevated myocardial infarction): Code(s): I21.4 - Non-ST elevation (NSTEMI) myocardial infarction Status: Acute Assessment and Plan: * suspected based on elevated troponins * however, chest pain symptoms are somewhat atypical * s/p heparin gtt * Echo noted with EF 30 - 35% * Cardiology following * cardiac catheterization results noted - no intervention done or significant CAD present * however, EF better at 50% * continue supportive therapy (5) Nausea, vomiting, and diarrhea: Code(s): R11.2 - Nausea with vomiting, unspecified; R19.7 - Diarrhea, unspecified Status: Acute Assessment and Plan: * noted by history * possibly secondary to #2 * symptoms better at this time * PRN IV antiemetics * follow symptoms (6) Hypertension: Qualifiers: Hypertension type: primary hypertension Qualified Code(s): I10 - Essential (primary) hypertension Code(s): I10 - Essential (primary) hypertension Status: Chronic Assessment and Plan: * reasonable control at this time * follow trend of hemodynamics (7) Chronic anemia: Code(s): D64.9 - Anemia, unspecified Status: Chronic Assessment and Plan: * due to ESRD * on Retacrit while hospitalized * however, acute illness/infection may limit effectiveness of DANE * follow trend of H/H (8) Type 2 diabetes mellitus: Qualifiers: Diabetes mellitus long-term insulin use: without long-term use Diabetes mellitus complication status: with kidney complications Diabetes mellitus complication detail: with chronic kidney disease Chronic kidney disease stage: on chronic dialysis Qualified Code(s): E11.22 - Type 2 diabetes mellitus with diabetic chronic kidney disease; N18.6 - End stage renal disease; Z99.2 - Dependence on renal dialysis Code(s): E11.9 - Type 2 diabetes mellitus without complications Status: Chronic Assessment and Plan: * follow accuchecks * glycemic control per hospitalist Will continue to follow. Subjective Date/time seen: 09/28/24 10:00 Interval history: Follow-up for end stage renal disease on peritoneal dialysis. Tolerated peritoneal dialysis treatment overnight without any issues or problems (CCPD supervised and seen at 9:50AM); s/p cardiac catheterization yesterday and tolerated this intervention as well; no apparent distress noted at the time of my visit; no issues/problems overnight or earlier this morning, repeat blood culture still positive. Exam 2 Narrative: General: WD/WN female in NAD Heart: normal S1 and S2; no rub Lungs: clear anteriorly; decreased at bases Abdomen: soft, nontender, nondistended, positive bowel sounds Extremities: no cyanosis or clubbing; no edema Skin: no rash Objective Data Vital Signs Vital Signs: Vital Signs Temp Pulse Pulse Resp BP Pulse Ox O2 Del Method 09/28/24 10:00 111 H 09/28/24 09:11 96 Room Air 09/28/24 08:00 108 H 09/28/24 08:00 97.7 F 113 H 20 161/87 H 97 09/28/24 06:00 108 H 09/28/24 04:00 Room Air 09/28/24 04:00 99.6 F 116 H 20 145/92 H 96 09/28/24 04:00 106 H 09/28/24 02:00 104 H 09/28/24 00:00 106 H 09/28/24 00:00 Room Air 09/28/24 00:00 98.5 F 122 H 16 149/73 H 98 09/27/24 22:00 115 H 09/27/24 20:05 99.7 F H 120 H 16 137/80 94 09/27/24 20:00 119 H 09/27/24 20:00 Room Air 09/27/24 18:00 111 H 09/27/24 17:45 98.6 F 123 H 20 121/82 97 09/27/24 16:45 98.7 F 116 H 20 142/79 H 99 09/27/24 16:00 116 H 09/27/24 15:45 99.5 F 101 H 20 126/81 100 09/27/24 14:45 113 H 09/27/24 14:45 113 H 24 H 141/87 H 94 Room Air 09/27/24 14:30 104 H 09/27/24 14:30 103 H 23 H 120/81 96 Room Air 09/27/24 14:15 104 H 09/27/24 14:15 106 H 20 126/80 96 Room Air 09/27/24 14:00 104 H 09/27/24 14:00 105 H 24 H 133/79 97 Room Air 09/27/24 13:47 112 H 09/27/24 13:47 112 H 21 H 131/84 94 Intake/Output Intake/Output: Intake & Output 09/25/24 09/26/24 09/27/24 09/28/24 23:59 23:59 23:59 23:59 Intake Total 1180 1539.8 1264.8 320 Output Total 300 1190 1580 1105 Balance 880 349.8 -315.2 -785 Meds/Results Medications: Active Medications Generic Name Dose Route Start Last Admin Trade Name Freq PRN Reason Stop Dose Admin Acetaminophen 650 mg 09/25/24 18:05 09/28/24 12:53 Acetaminophen 325 Mg Tablet PO 650 mg Q6H PRN Administration Mild Pain (1-3) or Fever Albuterol 2 puff 09/25/24 16:39 Albuterol Sulfate (*Sp) Aerosol 1 Puff INHALATION QID PRN shortness of breath or wheezing Allopurinol 150 mg 09/26/24 09:00 09/28/24 08:50 Allopurinol 150 Mg Tablet PO 150 mg DAILY JENNIFER Administration Aspirin 81 mg 09/27/24 09:00 09/28/24 12:29 Aspirin 81 Mg Enteric Tablet PO Not Given QAM JENNIFER Calcitriol 0.25 mcg 09/26/24 09:00 09/28/24 08:50 Calcitriol 0.25 Mcg Capsule PO 0.25 mcg DAILY JENN[facility]ER Administration Cinacalcet 60 mg 09/26/24 21:00 09/27/24 21:35 Cinacalcet 30 Mg Tablet PO 60 mg HS JENNIFER Administration Cyclobenzaprine HCl 5 mg 09/26/24 13:07 09/27/24 21:42 Cyclobenzaprine Hcl 5 Mg Tablet PO 5 mg TID PRN Administration muscle spasm Dextrose 12.5 gm 09/25/24 09:22 Dextrose 50% 25 Gm/50 Ml Syringe IV PUSH PRN PRN Hypoglycemia Protocol Doxazosin Mesylate 4 mg 09/26/24 21:00 09/27/24 21:34 Doxazosin Mesylate 4 Mg Tablet PO 4 mg HS JENNIFER Administration Epoetin Orestes-epbx 10,000 units 09/27/24 09:00 09/27/24 09:16 Epoetin Orestes-Epbx 10,000 Units/Ml Vial SUB-Q 10,000 units MOWEFR@09 JENNIFER Administration Furosemide 20 mg 09/28/24 09:00 09/28/24 08:50 Furosemide 20 Mg Tablet PO 20 mg DAILY JENN[facility]ER Administration Gentamicin Sulfate 1 applic 09/25/24 21:00 09/28/24 08:42 Gentamicin Sulfate 0.1% Cr 15 Gm Tube TOPICAL Not Given QHS JENNIFER Glucagon 1 mg 09/25/24 09:22 Glucagon For Inj 1 Mg Vial IM PRN PRN Hypoglycemia Protocol Glucose 15 gm 09/25/24 09:22 Glucose Oral Gel 15 Gm Of Glucse In 37.5 Gm Tube PO PRN PRN Hypoglycemia Protocol Heparin Sodium (Porcine) 5,000 units 09/25/24 09:25 09/26/24 21:04 Heparin Sodium 5,000 Units/Ml Vial SUB-Q Not Given Q12HR JENNIFER Dextrose 1,000 mls @ 100 mls/hr 09/25/24 09:22 Dextrose 5% 1,000 Ml IVPB PRN PRN Hypoglycemia Protocol Cefazolin Sodium 1 gm in 50 mls @ 100 mls/hr 09/27/24 13:00 09/28/24 08:48 Ancef 1 Gm/Ns 50 Ml IVPB 100 mls/hr DAILY JENNIFER Administration Insulin Aspart 2 - 5 units 09/26/24 06:30 09/28/24 12:47 Insulin Aspart (*Bkc) 100 Units/Ml SUB-Q Not Given ACHS [facility] Protocol Insulin Glargine 12 units 09/25/24 21:00 09/27/24 21:35 Insulin Glargine (*Bkc) 100 Units/Ml 0.15 units/kg (12 units) 12 units SUB-Q Administration HS JENNIFER Metoprolol Succinate 50 mg 09/28/24 11:05 09/28/24 12:47 Metoprolol Succinate Ext Rel 50 Mg Tabcr PO 50 mg QAM JENNIFER Administration Tenapanor [Xphozah] 30 mg 09/26/24 21:00 09/28/24 08:52 30 Mg Tablet) PO 10/26/24 20:59 30 mg Q12HR JENNIFER Administration Pantoprazole Sodium 40 mg 09/25/24 21:00 09/28/24 08:50 Pantoprazole 40 Mg Tablet PO 40 mg Q12HR JENNIFER Administration Rosuvastatin Calcium 20 mg 09/26/24 09:00 09/28/24 08:49 Rosuvastatin 20 Mg Tablet PO 20 mg DAILY [facility]ENN[facility]ER Administration Sevelamer Carbonate 1,600 mg 09/27/24 08:00 09/28/24 12:46 Sevelamer Carbonate 800 Mg Tablet PO 1,600 mg TIDWM JENNIFER Administration Temazepam 7.5 mg 09/26/24 21:00 09/27/24 21:34 Temazepam (*Crx) 7.5 Mg Capsule PO 10/26/24 20:59 7.5 mg HS JENN[facility]ER Administration Trazodone HCl 50 mg 09/26/24 21:00 09/27/24 21:35 Trazodone Hcl 50 Mg Tablet PO 50 mg HS JENN[facility]ER Administration Vitamin B Complex/Folic Acid 1 cap 09/26/24 09:00 09/28/24 08:49 Vitamin B Cmplx/Vit C/Folic Ac 1 Capsule PO 1 cap QAM JENNIFER Administration Vitamin D 4,000 units 09/26/24 09:00 09/28/24 08:50 Cholecalciferol 1,000 Units Tablet PO 4,000 units DAILY JENNIFER Administration Radiology Results: ITS Impressions Head CT 09/24/24 20:52 IMPRESSION: No acute intracranial process. Chest/Abdomen/Pelvis CT 09/24/24 20:56 IMPRESSION: No acute process detected in the chest. Considerable fat stranding surrounding the left lower quadrant transplant kidney, as can be seen with infection. Chest X-Ray 09/26/24 05:25 Impression: Minimal central pulmonary venous congestive change. Stable Mediport. Labs Labs: Laboratory Tests 09/28/24 04:28 09/28/24 04:28 Calcium 9.0 Phosphorus 5.7 H Total Bilirubin 0.5 AST 20 ALT 17 Alkaline Phosphatase 98 Total Protein 5.0 L Albumin 2.7 L Microbiology 09/26/24 14:51 Blood Blood Culture - Preliminary Staphylococcus aureus 09/26/24 14:35 Blood Blood Culture - Preliminary Staphylococcus aureus 09/26/24 07:25 Peritoneal Fluid Anaerobic Culture - Preliminary 09/26/24 07:25 Peritoneal Fluid Aerobic Culture - Preliminary
[2024-09-28 12:13] LABS: Glucose Point of Care 204 mg/dl (65-105)
[2024-09-28] MEDS: METOPROLOL SUCCINATE EXT REL 50 MG TABCR PO (12:47)
[2024-09-28] MEDS: ACETAMINOPHEN 325 MG TABLET 650 MG PO (12:53)
[2024-09-28 16:26] LABS: Glucose Point of Care 214 mg/dl (65-105)
[2024-09-28] MEDS: GENTAMICIN SULFATE 0.1% CR 15 GM TUBE 1 APPLIC TOPICAL (17:48)
[2024-09-28 20:13] LABS: Glucose Point of Care 267 mg/dl (65-105)
[2024-09-28] MEDS: INSULIN GLARGINE (*BKC) 100 UNITS/ML 12 UNITS SUB-Q (20:29)
[2024-09-28] MEDS: HEPARIN SODIUM 5,000 UNITS/ML VIAL 5000 UNITS SUB-Q (20:29)
[2024-09-28] MEDS: INSULIN ASPART (*BKC) 100 UNITS/ML SUB-Q (20:30)
[2024-09-28] MEDS: traZODone HCL 50 MG TABLET PO (20:30)
[2024-09-28] MEDS: TEMAZEPAM (*CRX) 7.5 MG CAPSULE PO (20:30)
[2024-09-28] MEDS: CINACALCET 30 MG TABLET 60 MG PO (20:30)
[2024-09-28] MEDS: CYCLOBENZAPRINE HCL 5 MG TABLET PO (20:43)
[2024-09-28] MEDS: DOXAZOSIN MESYLATE 4 MG TABLET PO (20:43)
[2024-09-29] VITALS (12 sets, daily range): BP systolic 142–165; BP diastolic 76–87; PULSE 90–123; RESP 16–20; TEMP 37–37.4; O2SAT 95–100
[2024-09-29 05:20] LABS: Basophils Percent Auto 0.3 % (0.2-1.2); Eosinophils Absolute Auto 0.2 K/mm3 (0-0.3); Eosinophils Percent Auto 2.6 % (0-4.4); Hematocrit 26.7 % (37.0-47.0); Immature Granulocyte Absolute 0.03 K/mm3 (0.00-0.031); Immature Granulocyte Percent A 0.5 % (0-0.5); Lymphocytes Absolute Auto 1.08 K/mm3 (0.9-3.2); Lymphocytes Percent Auto 17.3 % (18.3-44.2); Mean Corpuscular Hemoglobin 28.1 pg (26-34); Mean Corpuscular Volume 93.7 fl (80-100); Mean Platelet Volume 11.4 fl (7.4-10.4); Monocytes Absolute Auto 0.7 K/mm3 (0.1-0.6); Monocytes Percent Auto 11.9 % (2.6-8.5); Neutrophils Absolute Auto 4.2 K/mm3 (1.3-6.7); Neutrophils Percent Auto 67.4 % (45.5-73.1); Platelet Count Result 143 k/mm3 (150-375); Red Blood Count 2.85 M/mm3 (4.2-5.4); Red Cell Distribution Width 19.3 % (11.5-14.5); White Blood Count 6.2 K/mm3 (4.5-10.0)
[2024-09-29 05:37] LABS: Alanine Aminotransferase 27 U/L (6-35); Albumin Level 2.6 g/dL (3.5-5.1); Alkaline Phosphatase 127 U/L (38-126); Anion Gap 7 mmol/L (4-12); Aspartate Amino Transferase 35 U/L (14-36); Bilirubin,Total 0.4 mg/dL (0.2-1.3); Blood Urea Nitrogen 49 mg/dL (7-17); Calcium 9.4 mg/dL (8.4-10.2); Carbon Dioxide 23 mmol/L (22-30); Chloride 103 mmol/L (98-107); Estimated CRCL calculation 6 ml/min; Estimated Glomerular Filt Rate 5; Glucose 139 mg/dL (65-110); Magnesium 1.7 mg/dL (1.6-2.3); Phosphorus 6.1 mg/dL (2.5-4.5); Potassium 3.7 mmol/L (3.4-5.0); Sodium 133 mmol/L (137-145)
--- NOTE | 2024-09-29 07:36 | P.PNIM_ITS ---
Progress Note: A&P Assessment and Plan (1) Sepsis: Code(s): A41.9 - Sepsis, unspecified organism Status: Acute Assessment and Plan: * Given GI symptoms, abdominal tenderness, and PD catheter, she likely has remberto tonitis secondary to PD. * Has hx of ESBL E. coli UTI in 2021, however urine now shows no signs of infection although she does have perinephric stranding on CT. * No signs of symptoms of pneumonia, sinusitis, bronchitis (CT C/A/P unrevealing). * No signs of symptoms of cellulitis. * Peritoneal fluid analysis reviewed * Started on Ancef due to MSSA. Continue for three weeks. * DC vancomycin * pending results of blood, urine, * Reviewed peritoneal fluid cultures. * Supportive fluids --> PO as now more awake and able to swallow. * Monitor I/O. * BC 09/24 :Positive for Staph.Aureus BC 09/26: Positive for Staph.Aureus BC 09/28: Ordered (2) Type 2 diabetes mellitus: Qualifiers: Chronic kidney disease stage: on chronic dialysis Diabetes mellitus complication detail: with chronic kidney disease Diabetes mellitus complication status: with kidney complications Diabetes mellitus terminal block assembler insulin use: without terminal block assembler use Qualified Code(s): E11.22 - Type 2 diabetes mellitus with diabetic chronic kidney disease; N18.6 - End stage renal disease; Z99.2 - Dependence on renal dialysis Code(s): E11.9 - Type 2 diabetes mellitus without complications Status: Chronic Assessment and Plan: * Basal-bolus insulin regimen with glucose goal 140-180 mg/dl. (3) End-stage renal disease (ESRD): Code(s): N18.6 - End stage renal disease Status: Acute Assessment and Plan: * Nephrology consultation for dialysis management (primary invoicing machine operator is Dr. Hope). (4) Chronic anemia: Code(s): D64.9 - Anemia, unspecified Status: Chronic Assessment and Plan: * Related to ESRD and stable (5) Thrombocytopenia: Code(s): D69.6 - Thrombocytopenia, unspecified Status: Chronic Assessment and Plan: * Worsened from baseline of 165K, likely due to sepsis. * Monitor. (6) Hypertension: Qualifiers: Hypertension type: primary hypertension Qualified Code(s): I10 - Essential (primary) hypertension Code(s): I10 - Essential (primary) hypertension Status: Chronic Assessment and Plan: * Continue Metoprolol, Lisinopril, Nifedipine (7) Abnormal EKG: Code(s): R94.31 - Abnormal electrocardiogram [ECG] [EKG] Status: Acute Assessment and Plan: * Abnormalities in anterior leads more pronounced (poor anterior R-wave progression) than in 202. * Echocardiogram pending * Monitor on telemetry. (8) Elevated troponin I level: Code(s): R79.89 - Other specified abnormal findings of blood chemistry Status: Acute Assessment and Plan: * Elevated baseline due to ESRD, however increase is worrisome for demand (type 2) DE due to sepsis. * Increase metoprolol to limit myocardial oxygen demand. * Continue ASA. * Possible catheterization tomorrow to rule out takotsubo cardiomyopathy * Suspicious for pericarditis as well (9) Hyperlipemia: Code(s): E78.5 - Hyperlipidemia, unspecified Status: Acute Assessment and Plan: * Continue rosuvastatin. (10) Metabolic encephalopathy: Code(s): G93.41 - Metabolic encephalopathy Status: Acute Assessment and Plan: * Clinically due to sepsis. * No focal findings to suggest stroke. * No neck rigidity or tenderness to suggest meningitis or encephalitis. Subjective Date/time seen: 09/29/24 07:36 Interval history: Patient reports doing well.Pending blood cultures. Continue receiving pe ritoneal dialysis and Ancef. Patient underwent cardiac catheterization which shows nonischemic cardiomyopathy, normal LV ED, normal left main, lad, RCA, most likely on a mess origin of left circumflex, unable to engage OCD ostium. After reviewing the peritoneal fluid analysis and the blood culture patient started on Ancef which will be continued for 3 weeks. BC 09/24 :Positive for Staph.Aureus BC 09/26: Positive for Staph.Aureus BC 09/28: Ordered Review of Systems Review of Systems: ROS unobtainable: Yes unobtainable due to medical condition Exam Narrative: HEENT: PERRL, sclerae nonicteric, pharyngeal mucosa dry, pink, and intact NECK: No JVD, adenopathy, or thyromegaly CHEST: Clear to auscultation. Normal effort. HEART: NL S1/S2, regular, tachycardic, no murmur. ABDOMEN: BS hypoactive, soft, TENDER DIFFUSELY WITHOUT OBVIOUS GUARDING OR REBOUND, PD CATHETER IN PLACE AND SITE APPEARS CLEAN AND DRY. EXTREMITIES: No cyanosis, edema, or clubbing. DP PULSES 2+ BILATERALLY. No ulcerations of erythema of feet. NEUROLOGIC: CN intact and symmetric to inspection. Tone and strength seem symmetric with spontaneous movement in all 4 extremities and turning over in bed and attempting to get out of bed independently. MUSCULOSKELETAL: No gross deformities to visual inspection. PSYCH: Drowsy. Easily aroused. Response to both verbal and tactile stimuli but does not follow directions. Speech is monosyllabic. Objective Data Vital Signs Vital Signs: Vital Signs - 24 hr 09/28/24 08:00 09/28/24 08:00 09/28/24 09:11 Temperature 97.7 F Pulse Rate 113 H 108 H Respiratory Rate 20 Blood Pressure 161/87 H Pulse Oximetry 97 96 Oxygen Delivery Room Air Fraction of Inspired Oxygen 21 09/28/24 10:00 09/28/24 11:50 09/28/24 12:00 Temperature 98.7 F Pulse Rate 111 H 117 H 114 H Respiratory Rate 20 Blood Pressure 131/85 Pulse Oximetry 96 Oxygen Delivery Fraction of Inspired Oxygen 09/28/24 12:47 09/28/24 14:00 09/28/24 16:00 Temperature 98.2 F Pulse Rate 123 H 102 H 94 Respiratory Rate 20 Blood Pressure 138/82 Pulse Oximetry 98 Oxygen Delivery Fraction of Inspired Oxygen 09/28/24 16:00 09/28/24 18:00 09/28/24 20:00 Temperature 98.6 F Pulse Rate 91 96 94 Respiratory Rate 16 Blood Pressure 130/80 Pulse Oximetry 97 Oxygen Delivery Fraction of Inspired Oxygen 09/28/24 20:00 09/28/24 20:00 09/28/24 22:00 Temperature Pulse Rate 93 97 Respiratory Rate Blood Pressure Pulse Oximetry Oxygen Delivery Room Air Fraction of Inspired Oxygen 09/29/24 00:00 09/29/24 00:00 09/29/24 00:00 Temperature 99.4 F Pulse Rate 106 H 100 Respiratory Rate 16 Blood Pressure 147/87 H Pulse Oximetry 97 Oxygen Delivery Room Air Fraction of Inspired Oxygen 09/29/24 02:00 09/29/24 04:00 09/29/24 04:00 Temperature 98.8 F Pulse Rate 97 104 H Respiratory Rate 16 Blood Pressure 152/84 H Pulse Oximetry 100 Oxygen Delivery Room Air Fraction of Inspired Oxygen 09/29/24 04:00 09/29/24 06:00 Temperature Pulse Rate 113 H 100 Respiratory Rate Blood Pressure Pulse Oximetry Oxygen Delivery Fraction of Inspired Oxygen Intake/Output Intake/Output: Intake & Output 09/26/24 09/27/24 09/28/24 09/29/24 23:59 23:59 23:59 23:59 Intake Total 1539.8 1264.8 930 500 Output Total 1190 1580 1105 200 Balance 349.8 -315.2 -175 300 Meds/Results Medications: Active Medications Generic Name Dose Route Start Last Admin Trade Name Freq PRN Reason Stop Dose Admin Acetaminophen 650 mg 09/25/24 18:05 09/28/24 12:53 Acetaminophen 325 Mg Tablet PO 650 mg Q6H PRN Administration Mild Pain (1-3) or Fever Albuterol 2 puff 09/25/24 16:39 Albuterol Sulfate (*Sp) Aerosol 1 Puff INHALATION QID PRN shortness of breath or wheezing Allopurinol 150 mg 09/26/24 09:00 09/28/24 08:50 Allopurinol 150 Mg Tablet PO 150 mg DAILY JENNIFER Administration Aspirin 81 mg 09/27/24 09:00 09/28/24 12:29 Aspirin 81 Mg Enteric Tablet PO Not Given QAM JENNIFER Calcitriol 0.25 mcg 09/26/24 09:00 09/28/24 08:50 Calcitriol 0.25 Mcg Capsule PO 0.25 mcg DAILY JENNIFER Administration Cinacalcet 60 mg 09/26/24 21:00 09/28/24 20:30 Cinacalcet 30 Mg Tablet PO 60 mg HS JENNIFER Administration Cyclobenzaprine HCl 5 mg 09/26/24 13:07 09/28/24 20:43 Cyclobenzaprine Hcl 5 Mg Tablet PO 5 mg TID PRN Administration muscle spasm Dextrose 12.5 gm 09/25/24 09:22 Dextrose 50% 25 Gm/50 Ml Syringe IV PUSH PRN PRN Hypoglycemia Protocol Doxazosin Mesylate 4 mg 09/26/24 21:00 09/28/24 20:43 Doxazosin Mesylate 4 Mg Tablet PO 4 mg HS JENNIFER Administration Epoetin Orestes-epbx 10,000 units 09/27/24 09:00 09/27/24 09:16 Epoetin Orestes-Epbx 10,000 Units/Ml Vial SUB-Q 10,000 units MOWEFR@09 JENNIFER Administration Furosemide 20 mg 09/28/24 09:00 09/28/24 08:50 Furosemide 20 Mg Tablet PO 20 mg DAILY JENNIFER Administration Gentamicin Sulfate 1 applic 09/25/24 21:00 09/28/24 17:48 Gentamicin Sulfate 0.1% Cr 15 Gm Tube TOPICAL 1 applic QHS JENNIFER Administration Glucagon 1 mg 09/25/24 09:22 Glucagon For Inj 1 Mg Vial IM PRN PRN Hypoglycemia Protocol Glucose 15 gm 09/25/24 09:22 Glucose Oral Gel 15 Gm Of Glucse In 37.5 Gm Tube PO PRN PRN Hypoglycemia Protocol Heparin Sodium (Porcine) 5,000 units 09/25/24 09:25 09/28/24 20:29 Heparin Sodium 5,000 Units/Ml Vial SUB-Q 5,000 units Q12HR JENNIFER Administration Dextrose 1,000 mls @ 100 mls/hr 09/25/24 09:22 Dextrose 5% 1,000 Ml IVPB PRN PRN Hypoglycemia Protocol Cefazolin Sodium 1 gm in 50 mls @ 100 mls/hr 09/27/24 13:00 09/28/24 08:48 Ancef 1 Gm/Ns 50 Ml IVPB 100 mls/hr DAILY JENNIFER Administration Insulin Aspart 2 - 5 units 09/26/24 06:30 09/28/24 20:30 Insulin Aspart (*Bkc) 100 Units/Ml SUB-Q 3 units ACHS JENNIFER Administration Protocol Insulin Glargine 12 units 09/25/24 21:00 09/28/24 20:29 Insulin Glargine (*Bkc) 100 Units/Ml 0.15 units/kg (12 units) 12 units SUB-Q Administration HS JENNIFER Metoprolol Succinate 50 mg 09/28/24 11:05 09/28/24 12:47 Metoprolol Succinate Ext Rel 50 Mg Tabcr PO 50 mg QAM JENNIFER Administration Pantoprazole Sodium 40 mg 09/25/24 21:00 09/28/24 20:31 Pantoprazole 40 Mg Tablet PO 40 mg Q12HR JENNIFER Administration Rosuvastatin Calcium 20 mg 09/26/24 09:00 09/28/24 08:49 Rosuvastatin 20 Mg Tablet PO 20 mg DAILY JENNIFER Administration Sevelamer Carbonate 1,600 mg 09/27/24 08:00 09/28/24 18:00 Sevelamer Carbonate 800 Mg Tablet PO 1,600 mg TIDWM JENNIFER Administration Temazepam 7.5 mg 09/26/24 21:00 09/28/24 20:30 Temazepam (*Crx) 7.5 Mg Capsule PO 10/26/24 20:59 7.5 mg HS JENNIFER Administration Trazodone HCl 50 mg 09/26/24 21:00 09/28/24 20:30 Trazodone Hcl 50 Mg Tablet PO 50 mg HS JENNIFER Administration Vitamin B Complex/Folic Acid 1 cap 09/26/24 09:00 09/28/24 08:49 Vitamin B Cmplx/Vit C/Folic Ac 1 Capsule PO 1 cap QAM JENNIFER Administration Vitamin D 4,000 units 09/26/24 09:00 09/28/24 08:50 Cholecalciferol 1,000 Units Tablet PO 4,000 units DAILY JENNIFER Administration Radiology Results: ITS Impressions Head CT 09/24/24 20:52 IMPRESSION: No acute intracranial process. Chest/Abdomen/Pelvis CT 09/24/24 20:56 IMPRESSION: No acute process detected in the chest. Considerable fat stranding surrounding the left lower quadrant transplant kidney, as can be seen with infection. Chest X-Ray 09/26/24 05:25 Impression: Minimal central pulmonary venous congestive change. Stable Mediport. Labs Labs: Laboratory Results - last 24 hr 09/28/24 09/28/24 09/28/24 07:30 11:34 16:09 WBC RBC Hgb Hct MCV MCH MCHC RDW Plt Count MPV Immature Gran % (Auto) Neut % (Auto) Lymph % (Auto) [place] % (Auto) Eos % (Auto) Baso % (Auto) Lymph # (Auto) [place] # (Auto) Eos # (Auto) Baso # (Auto) Abs Immat Gran (auto) Absolute Neuts (auto) Absolute Nucleated RBC Nucleated RBC % Sodium Potassium Chloride Carbon Dioxide Anion Gap BUN Creatinine Estim Creat Clear Calc Estimated GFR Glucose POC Capillary Glucose 139 H 204 H 214 H Calcium Phosphorus Magnesium Total Bilirubin AST ALT Alkaline Phosphatase Total Protein Albumin 09/28/24 09/29/24 20:07 04:55 WBC 6.2 RBC 2.85 L Hgb 8.0 L Hct 26.7 L MCV 93.7 MCH 28.1 MCHC 30.0 L RDW 19.3 H Plt Count 143 L MPV 11.4 H Immature Gran % (Auto) 0.5 Neut % (Auto) 67.4 Lymph % (Auto) 17.3 L [place] % (Auto) 11.9 H Eos % (Auto) 2.6 Baso % (Auto) 0.3 Lymph # (Auto) 1.08 [place] # (Auto) 0.7 H Eos # (Auto) 0.2 Baso # (Auto) 0.0 Abs Immat Gran (auto) 0.03 Absolute Neuts (auto) 4.2 Absolute Nucleated RBC 0.000 Nucleated RBC % 0.0 Sodium 133 L Potassium 3.7 Chloride 103 Carbon Dioxide 23 Anion Gap 7 BUN 49 H Creatinine 7.70 H Estim Creat Clear Calc 6 Estimated GFR 5 L Glucose 139 H POC Capillary Glucose 267 H Calcium 9.4 Phosphorus 6.1 H Magnesium 1.7 Total Bilirubin 0.4 AST 35 ALT 27 Alkaline Phosphatase 127 H Total Protein 5.0 L Albumin 2.6 L Quality VTE Prophylaxis VTE prophylaxis: pharmacologic ordered (heparin) Hospitalist MIPS Advance Care Plan I have confirmed that the patient's Advanced Care Plan is present, code status is documented, or surrogate decision maker is listed in patient medical record.: Yes Medication Reconciliation I have utilized all available resources to obtain, update and review the patients current medications (includes all prescriptions, OTC, herbals, cannabis, and nutritional supplements).: Yes
[2024-09-29 09:27] LABS: Glucose Point of Care 150 mg/dl (65-105)
[2024-09-29] MEDS: METOPROLOL SUCCINATE EXT REL 50 MG TABCR PO (10:06)
[2024-09-29] MEDS: PANTOPRAZOLE 40 MG TABLET PO ×2 (10:06→21:11)
[2024-09-29] MEDS: FUROSEMIDE 20 MG TABLET PO (10:06)
[2024-09-29] MEDS: allopurinoL 150 MG TABLET PO (10:06)
[2024-09-29] MEDS: CHOLECALCIFEROL 1,000 UNITS TABLET 4000 UNITS PO (10:06)
[2024-09-29] MEDS: calcitrioL 0.25 MCG CAPSULE PO (10:06)
[2024-09-29] MEDS: SEVELAMER CARBONATE 800 MG TABLET 1600 MG PO ×3 (10:06→18:01)
[2024-09-29] MEDS: ASPIRIN 81 MG ENTERIC TABLET PO (10:08)
[2024-09-29] MEDS: ROSUVASTATIN 20 MG TABLET PO (10:08)
[2024-09-29] MEDS: HEPARIN SODIUM 5,000 UNITS/ML VIAL 5000 UNITS SUB-Q ×2 (10:08→21:10)
[2024-09-29] MEDS: VITAMIN B CMPLX/VIT C/FOLIC AC 1 CAPSULE 1 CAP PO (10:08)
[2024-09-29] MEDS: ceFAZolin 1 GM/NS 50 ML 1 GM/50 ML BAG IVPB (10:20)
[2024-09-29] MEDS: GENTAMICIN SULFATE 0.1% CR 15 GM TUBE 1 APPLIC TOPICAL (10:24)
[2024-09-29] MEDS: dilTIAZem HCL CD 120 MG CAP.24HR PO (11:52)
[2024-09-29 12:52] LABS: Glucose Point of Care 368 mg/dl (65-105)
[2024-09-29] MEDS: INSULIN ASPART (*BKC) 100 UNITS/ML SUB-Q ×3 (12:53→21:18)
[2024-09-29 17:00] LABS: Glucose Point of Care 203 mg/dl (65-105)
--- NOTE | 2024-09-29 19:10 | PM.PNCARD ---
Progress Note: A&P Assessment and Plan (1) NSTEMI (non-ST elevated myocardial infarction): Code(s): I21.4 - Non-ST elevation (NSTEMI) myocardial infarction Status: Acute (2) Cardiomyopathy: Code(s): I42.9 - Cardiomyopathy, unspecified Status: Acute Plan 1. ESRD on peritoneal dialysis 2. Paroxysmal atrial fibrillation 3. NSTEMI 4. Nonischemic cardiomyopathy; takotsubo -LV systolic function improved which was evident in a cardiac catheterization with an EF of 50% -will continue anticoagulation for her AFib -continue metoprolol succinate for rate control and cardiomyopathy -continue diltiazem for rate control; rate is well controlled on both diltiazem and metoprolol -consider adding ARB/ACEi after consultation with Nephrology if blood pressure allows - DC ASA. Low-dose statin is okay -cardiology will sign off please call us with any questions or concerns Subjective Date/time seen: 09/29/24 19:10 Interval history: Rate better controlled with diltiazem Tolerated PD Chest pain Review of Systems Review of Systems: As per HPI. ROS unobtainable: Yes unobtainable due to medical condition Exam Narrative: HEENT: PERRL, sclerae nonicteric, pharyngeal mucosa dry, pink, and intact NECK: No JVD, adenopathy, or thyromegaly CHEST: Clear to auscultation. Normal effort. HEART: NL S1/S2, regular, tachycardic, no murmur. ABDOMEN: BS hypoactive, soft, TENDER DIFFUSELY WITHOUT OBVIOUS GUARDING OR REBOUND, PD CATHETER IN PLACE AND SITE APPEARS CLEAN AND DRY. EXTREMITIES: No cyanosis, edema, or clubbing. DP PULSES 2+ BILATERALLY. No ulcerations of erythema of feet. NEUROLOGIC: CN intact and symmetric to inspection. Tone and strength seem symmetric with spontaneous movement in all 4 extremities and turning over in bed and attempting to get out of bed independently. MUSCULOSKELETAL: No gross deformities to visual inspection. PSYCH: Drowsy. Easily aroused. Response to both verbal and tactile stimuli but does not follow directions. Speech is monosyllabic. Objective Data Vital Signs Vital Signs: Vital Signs - 24 hr 09/28/24 20:00 09/28/24 20:00 09/28/24 20:00 Temperature 37.0 C Pulse Rate 94 93 Respiratory Rate 16 Blood Pressure 130/80 Pulse Oximetry 97 Oxygen Delivery Room Air 09/28/24 22:00 09/29/24 00:00 09/29/24 00:00 Temperature 37.4 C Pulse Rate 97 106 H Respiratory Rate 16 Blood Pressure 147/87 H Pulse Oximetry 97 Oxygen Delivery Room Air 09/29/24 00:00 09/29/24 02:00 09/29/24 04:00 Temperature Pulse Rate 100 97 Respiratory Rate Blood Pressure Pulse Oximetry Oxygen Delivery Room Air 09/29/24 04:00 09/29/24 04:00 09/29/24 06:00 Temperature 37.1 C Pulse Rate 104 H 113 H 100 Respiratory Rate 16 Blood Pressure 152/84 H Pulse Oximetry 100 Oxygen Delivery 09/29/24 08:00 09/29/24 08:00 09/29/24 08:00 Temperature 37.0 C Pulse Rate 110 H 109 H Respiratory Rate 20 Blood Pressure 165/86 H Pulse Oximetry 95 Oxygen Delivery Room Air 09/29/24 10:00 09/29/24 10:06 09/29/24 11:48 Temperature 37.3 C Pulse Rate 123 H 113 H 96 Respiratory Rate 16 Blood Pressure 146/79 H Pulse Oximetry 96 Oxygen Delivery 09/29/24 12:00 09/29/24 16:00 09/29/24 16:00 Temperature Pulse Rate 99 90 91 Respiratory Rate 18 Blood Pressure 142/83 H Pulse Oximetry 98 Oxygen Delivery Intake/Output Intake/Output: Intake & Output 09/26/24 09/27/24 09/28/24 09/29/24 23:59 23:59 23:59 23:59 Intake Total 1539.8 1264.8 980 1580 Output Total 1190 1580 1105 200 Balance 349.8 -315.2 -125 1380 Meds/Results Medications: Active Medications Generic Name Dose Route Start Last Admin Trade Name Freq PRN Reason Stop Dose Admin Acetaminophen 650 mg 09/25/24 18:05 09/28/24 12:53 Acetaminophen 325 Mg Tablet PO 650 mg Q6H PRN Administration Mild Pain (1-3) or Fever Albuterol 2 puff 09/25/24 16:39 Albuterol Sulfate (*Sp) Aerosol 1 Puff INHALATION QID PRN shortness of breath or wheezing Allopurinol 150 mg 09/26/24 09:00 09/29/24 10:06 Allopurinol 150 Mg Tablet PO 150 mg DAILY JENNIFER Administration Aspirin 81 mg 09/27/24 09:00 09/29/24 10:08 Aspirin 81 Mg Enteric Tablet PO 81 mg QAM JENNIFER Administration Calcitriol 0.25 mcg 09/26/24 09:00 09/29/24 10:06 Calcitriol 0.25 Mcg Capsule PO 0.25 mcg DAILY JENNIFER Administration Cinacalcet 60 mg 09/26/24 21:00 09/28/24 20:30 Cinacalcet 30 Mg Tablet PO 60 mg HS JENNIFER Administration Cyclobenzaprine HCl 5 mg 09/26/24 13:07 09/28/24 20:43 Cyclobenzaprine Hcl 5 Mg Tablet PO 5 mg TID PRN Administration muscle spasm Dextrose 12.5 gm 09/25/24 09:22 Dextrose 50% 25 Gm/50 Ml Syringe IV PUSH PRN PRN Hypoglycemia Protocol Diltiazem HCl 120 mg 09/29/24 10:50 09/29/24 11:52 Diltiazem Hcl Cd 120 Mg Cap.24hr PO 120 mg QAM JENNIFER Administration Doxazosin Mesylate 4 mg 09/26/24 21:00 09/28/24 20:43 Doxazosin Mesylate 4 Mg Tablet PO 4 mg HS JENNIFER Administration Epoetin Orestes-epbx 10,000 units 09/27/24 09:00 09/27/24 09:16 Epoetin Orestes-Epbx 10,000 Units/Ml Vial SUB-Q 10,000 units MOWEFR@09 JENNIFER Administration Furosemide 20 mg 09/28/24 09:00 09/29/24 10:06 Furosemide 20 Mg Tablet PO 20 mg DAILY JENNIFER Administration Gentamicin Sulfate 1 applic 09/25/24 21:00 09/29/24 10:24 Gentamicin Sulfate 0.1% Cr 15 Gm Tube TOPICAL 1 applic QHS JENNIFER Administration Glucagon 1 mg 09/25/24 09:22 Glucagon For Inj 1 Mg Vial IM PRN PRN Hypoglycemia Protocol Glucose 15 gm 09/25/24 09:22 Glucose Oral Gel 15 Gm Of Glucse In 37.5 Gm Tube PO PRN PRN Hypoglycemia Protocol Heparin Sodium (Porcine) 5,000 units 09/25/24 09:25 09/29/24 10:08 Heparin Sodium 5,000 Units/Ml Vial SUB-Q 5,000 units Q12HR JENNIFER Administration Dextrose 1,000 mls @ 100 mls/hr 09/25/24 09:22 Dextrose 5% 1,000 Ml IVPB PRN PRN Hypoglycemia Protocol Cefazolin Sodium 1 gm in 50 mls @ 100 mls/hr 09/27/24 13:00 09/29/24 15:07 Ancef 1 Gm/Ns 50 Ml IVPB Infused DAILY JENNIFER Infusion Insulin Aspart 2 - 5 units 09/26/24 06:30 09/29/24 18:02 Insulin Aspart (*Bkc) 100 Units/Ml SUB-Q 2 units ACHS JENNIFER Administration Protocol Insulin Glargine 12 units 09/25/24 21:00 09/28/24 20:29 Insulin Glargine (*Bkc) 100 Units/Ml 0.15 units/kg (12 units) 12 units SUB-Q Administration [facility] Metoprolol Succinate 50 mg 09/28/24 11:05 09/29/24 10:06 Metoprolol Succinate Ext Rel 50 Mg Tabcr PO 50 mg QAM JENNIFER Administration Pantoprazole Sodium 40 mg 09/25/24 21:00 09/29/24 10:06 Pantoprazole 40 Mg Tablet PO 40 mg Q12HR JENNIFER Administration Rosuvastatin Calcium 20 mg 09/26/24 09:00 09/29/24 10:08 Rosuvastatin 20 Mg Tablet PO 20 mg DAILY JENNIFER Administration Sevelamer Carbonate 1,600 mg 09/27/24 08:00 09/29/24 18:01 Sevelamer Carbonate 800 Mg Tablet PO 1,600 mg TIDWM JENNIFER Administration Temazepam 7.5 mg 09/26/24 21:00 09/28/24 20:30 Temazepam (*Crx) 7.5 Mg Capsule PO 10/26/24 20:59 7.5 mg HS [facility] Administration Trazodone HCl 50 mg 09/26/24 21:00 09/28/24 20:30 Trazodone Hcl 50 Mg Tablet PO 50 mg HS [facility] Administration Vitamin B Complex/Folic Acid 1 cap 09/26/24 09:00 09/29/24 10:08 Vitamin B Cmplx/Vit C/Folic Ac 1 Capsule PO 1 cap QAM JENNIFER Administration Vitamin D 4,000 units 09/26/24 09:00 09/29/24 10:06 Cholecalciferol 1,000 Units Tablet PO 4,000 units DAILY JENNIFER Administration Radiology Results: ITS Impressions Head CT 09/24/24 20:52 IMPRESSION: No acute intracranial process. Chest/Abdomen/Pelvis CT 09/24/24 20:56 IMPRESSION: No acute process detected in the chest. Considerable fat stranding surrounding the left lower quadrant transplant kidney, as can be seen with infection. Chest X-Ray 09/26/24 05:25 Impression: Minimal central pulmonary venous congestive change. Stable Mediport. Labs Labs: Laboratory Results - last 24 hr 09/28/24 09/29/24 09/29/24 20:07 04:55 08:08 WBC 6.2 RBC 2.85 L Hgb 8.0 L Hct 26.7 L MCV 93.7 MCH 28.1 MCHC 30.0 L RDW 19.3 H Plt Count 143 L MPV 11.4 H Immature Gran % (Auto) 0.5 Neut % (Auto) 67.4 Lymph % (Auto) 17.3 L [place] % (Auto) 11.9 H Eos % (Auto) 2.6 Baso % (Auto) 0.3 Lymph # (Auto) 1.08 [place] # (Auto) 0.7 H Eos # (Auto) 0.2 Baso # (Auto) 0.0 Abs Immat Gran (auto) 0.03 Absolute Neuts (auto) 4.2 Absolute Nucleated RBC 0.000 Nucleated RBC % 0.0 Sodium 133 L Potassium 3.7 Chloride 103 Carbon Dioxide 23 Anion Gap 7 BUN 49 H Creatinine 7.70 H Estim Creat Clear Calc 6 Estimated GFR 5 L Glucose 139 H POC Capillary Glucose 267 H 150 H Calcium 9.4 Phosphorus 6.1 H Magnesium 1.7 Total Bilirubin 0.4 AST 35 ALT 27 Alkaline Phosphatase 127 H Total Protein 5.0 L Albumin 2.6 L 09/29/24 09/29/24 12:50 16:54 WBC RBC Hgb Hct MCV MCH MCHC RDW Plt Count MPV Immature Gran % (Auto) Neut % (Auto) Lymph % (Auto) [place] % (Auto) Eos % (Auto) Baso % (Auto) Lymph # (Auto) [place] # (Auto) Eos # (Auto) Baso # (Auto) Abs Immat Gran (auto) Absolute Neuts (auto) Absolute Nucleated RBC Nucleated RBC % Sodium Potassium Chloride Carbon Dioxide Anion Gap BUN Creatinine Estim Creat Clear Calc Estimated GFR Glucose POC Capillary Glucose 368 H 203 H Calcium Phosphorus Magnesium Total Bilirubin AST ALT Alkaline Phosphatase Total Protein Albumin
[2024-09-29 20:40] LABS: Glucose Point of Care 209 mg/dl (65-105)
[2024-09-29] MEDS: CINACALCET 30 MG TABLET 60 MG PO (21:09)
[2024-09-29] MEDS: DOXAZOSIN MESYLATE 4 MG TABLET PO (21:10)
[2024-09-29] MEDS: traZODone HCL 50 MG TABLET PO (21:11)
[2024-09-29] MEDS: CYCLOBENZAPRINE HCL 5 MG TABLET PO (21:11)
[2024-09-29] MEDS: TEMAZEPAM (*CRX) 7.5 MG CAPSULE PO (21:11)
[2024-09-29] MEDS: ACETAMINOPHEN 325 MG TABLET 650 MG PO (21:11)
[2024-09-29] MEDS: INSULIN GLARGINE (*BKC) 100 UNITS/ML 12 UNITS SUB-Q (21:19)
[2024-09-30] VITALS (10 sets, daily range): BP systolic 138–148; BP diastolic 66–94; PULSE 81–111; RESP 18–20; TEMP 35.6–37; O2SAT 95–99
--- NOTE | 2024-09-30 02:40 | ADMGEN ---
This patient, Brandy Casey, was admitted to IMU Room 213-01. Patient/family oriented to hospital policies and general routines including ID bracelet, bed and alarms, visiting hours, pain management, procedures, bathroom and other care routines, personal items, smoking policy, room service/diet, and visiting hours. Information on how to activate the Rapid Response Team has been discussed. Patient/Family are encouraged to report perceived risks to care and to ask questions if they do not understand what they are told or what they should do.
[2024-09-30 05:06] LABS: Hematocrit 25.8 % (37.0-47.0); Hemoglobin 7.8 g/dL (12.0-15.0); Mean Corpuscular HGB Conc 30.2 g/dl (32-36); Mean Corpuscular Hemoglobin 28.2 pg (26-34); Mean Corpuscular Volume 93.1 fl (80-100); Mean Platelet Volume 11.1 fl (7.4-10.4); Platelet Count Result 221 k/mm3 (150-375); Red Blood Count 2.77 M/mm3 (4.2-5.4); Red Cell Distribution Width 19.1 % (11.5-14.5); White Blood Count 6.6 K/mm3 (4.5-10.0)
[2024-09-30 05:23] LABS: Alanine Aminotransferase 44 U/L (6-35); Albumin Level 2.6 g/dL (3.5-5.1); Alkaline Phosphatase 168 U/L (38-126); Anion Gap 9 mmol/L (4-12); Aspartate Amino Transferase 75 U/L (14-36); Bilirubin,Total 0.4 mg/dL (0.2-1.3); Blood Urea Nitrogen 53 mg/dL (7-17); Calcium 9.1 mg/dL (8.4-10.2); Carbon Dioxide 21 mmol/L (22-30); Chloride 101 mmol/L (98-107); Estimated CRCL calculation 6 ml/min; Estimated Glomerular Filt Rate 5; Glucose 104 mg/dL (65-110); Potassium 3.5 mmol/L (3.4-5.0); Sodium 131 mmol/L (137-145)
[2024-09-30] MEDS: ACETAMINOPHEN 325 MG TABLET 650 MG PO ×2 (05:32→13:48)
[2024-09-30 07:48] LABS: Glucose Point of Care 116 mg/dl (65-105)
--- NOTE | 2024-09-30 07:50 | PM.IMPN ---
Progress Note: A&P Assessment and Plan (1) Sepsis: Code(s): A41.9 - Sepsis, unspecified organism Status: Acute Assessment and Plan: Given GI symptoms, abdominal tenderness, and PD catheter, she likely has peritonitis secondary to PD. Has hx of ESBL E. coli UTI in 2021, however urine now shows no signs of infection although she does have perinephric stranding on CT. No signs of symptoms of pneumonia, sinusitis, bronchitis (CT C/A/P unrevealing). No signs of symptoms of cellulitis. Peritoneal fluid analysis reviewed Started on Ancef due to MSSA. Continue for three weeks. DC vancomycin Pending results of repeat blood culture. Reviewed peritoneal fluid analysis Monitor I/O. BC 09/24 :Positive for Staph.Aureus BC 09/26: Positive for Staph.Aureus BC 09/28: Ordered (2) Type 2 diabetes mellitus: Qualifiers: Chronic kidney disease stage: on chronic dialysis Diabetes mellitus complication detail: with chronic kidney disease Diabetes mellitus complication status: with kidney complications Diabetes mellitus group home insulin use: without group home use Qualified Code(s): E11.22 - Type 2 diabetes mellitus with diabetic chronic kidney disease; N18.6 - End stage renal disease; Z99.2 - Dependence on renal dialysis Code(s): E11.9 - Type 2 diabetes mellitus without complications Status: Chronic Assessment and Plan: Basal-bolus insulin regimen with glucose goal 140-180 mg/dl. (3) End-stage renal disease (ESRD): Code(s): N18.6 - End stage renal disease Status: Acute Assessment and Plan: Nephrology consultation for dialysis management (primary survey worker is Dr. Hope). (4) Chronic anemia: Code(s): D64.9 - Anemia, unspecified Status: Chronic Assessment and Plan: Related to ESRD and stable (5) Thrombocytopenia: Code(s): D69.6 - Thrombocytopenia, unspecified Status: Chronic Assessment and Plan: Worsened from baseline of 165K, likely due to sepsis. Monitor. (6) Hypertension: Qualifiers: Hypertension type: primary hypertension Qualified Code(s): I10 - Essential (primary) hypertension Code(s): I10 - Essential (primary) hypertension Status: Chronic Assessment and Plan: Continue Metoprolol, Lisinopril, Nifedipine (7) Abnormal EKG: Code(s): R94.31 - Abnormal electrocardiogram [ECG] [EKG] Status: Acute Assessment and Plan: Abnormalities in anterior leads more pronounced (poor anterior R-wave progression) than in 202. Echocardiogram Left ventricular systolic function is severely reduced, estimated at 30-35%. Monitor on telemetry. (8) Elevated troponin I level: Code(s): R79.89 - Other specified abnormal findings of blood chemistry Status: Acute Assessment and Plan: Elevated baseline due to ESRD, however increase is worrisome for demand (type 2) MS due to sepsis. Increase metoprolol to limit myocardial oxygen demand. Continue ASA. Cardiac Cath 09/27: Conclusion:: 1. Nonischemic cardiomyopathy 2. Normal LVEDP 3. Normal left main, lad, RCA 4. 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 (10) Metabolic encephalopathy: Code(s): G93.41 - Metabolic encephalopathy Status: Acute Assessment and Plan: Clinically due to sepsis. No focal findings to suggest stroke. No neck rigidity or tenderness to suggest meningitis or encephalitis. Subjective Date/time seen: 09/30/24 07:50 Interval history: Feeling well. Continue Ancef through port a catheter . Continue peritoneal dialysis. 09/24 :Positive for Staph.Aureus 09/26: Positive for Staph.Aureus 09/28: Ordered Review of Systems Review of Systems: ROS unobtainable: Yes unobtainable due to medical condition Exam Narrative: HEENT: PERRL, sclerae nonicteric, pharyngeal mucosa dry, pink, and intact NECK: No JVD, adenopathy, or thyromegaly CHEST: Clear to auscultation. Normal effort. HEART: NL S1/S2, regular, tachycardic, no murmur. ABDOMEN: BS hypoactive, soft, TENDER DIFFUSELY WITHOUT OBVIOUS GUARDING OR REBOUND, PD CATHETER IN PLACE AND SITE APPEARS CLEAN AND DRY. EXTREMITIES: No cyanosis, edema, or clubbing. DP PULSES 2+ BILATERALLY. No ulcerations of erythema of feet. NEUROLOGIC: CN intact and symmetric to inspection. Tone and strength seem symmetric with spontaneous movement in all 4 extremities and turning over in bed and attempting to get out of bed independently. MUSCULOSKELETAL: No gross deformities to visual inspection. PSYCH: Drowsy. Easily aroused. Response to both verbal and tactile stimuli but does not follow directions. Speech is monosyllabic. Objective Data Vital Signs Vital Signs: Vital Signs - 24 hr 09/29/24 08:00 09/29/24 08:00 09/29/24 08:00 Temperature 98.6 F Pulse Rate 110 H 109 H Respiratory Rate 20 Blood Pressure 165/86 H Pulse Oximetry 95 Oxygen Delivery Room Air 09/29/24 10:00 09/29/24 10:06 09/29/24 11:48 Temperature 99.2 F Pulse Rate 123 H 113 H 96 Respiratory Rate 16 Blood Pressure 146/79 H Pulse Oximetry 96 Oxygen Delivery 09/29/24 12:00 09/29/24 16:00 09/29/24 16:00 Temperature Pulse Rate 99 90 91 Respiratory Rate 18 Blood Pressure 142/83 H Pulse Oximetry 98 Oxygen Delivery 09/29/24 20:00 09/29/24 20:00 09/29/24 20:41 Temperature 99 F Pulse Rate 95 97 97 Respiratory Rate 18 18 Blood Pressure 146/76 H Pulse Oximetry 98 98 Oxygen Delivery Room Air 09/30/24 00:00 09/30/24 04:00 09/30/24 05:20 Temperature 98.6 F Pulse Rate 95 111 H 100 Respiratory Rate 18 Blood Pressure 148/77 H Pulse Oximetry 99 Oxygen Delivery Intake/Output Intake/Output: Intake & Output 09/27/24 09/28/24 09/29/24 09/30/24 23:59 23:59 23:59 23:59 Intake Total 1264.8 980 1580 600 Output Total 1580 1105 200 800 Balance -315.2 -125 1380 -200 Meds/Results Medications: Active Medications Generic Name Dose Route Start Last Admin Trade Name Freq PRN Reason Stop Dose Admin Acetaminophen 650 mg 09/25/24 18:05 09/30/24 05:32 Acetaminophen 325 Mg Tablet PO 650 mg Q6H PRN Administration Mild Pain (1-3) or Fever Albuterol 2 puff 09/25/24 16:39 Albuterol Sulfate (*Sp) Aerosol 1 Puff INHALATION QID PRN shortness of breath or wheezing Allopurinol 150 mg 09/26/24 09:00 09/29/24 10:06 Allopurinol 150 Mg Tablet PO 150 mg DAILY JENNIFER Administration Calcitriol 0.25 mcg 09/26/24 09:00 09/29/24 10:06 Calcitriol 0.25 Mcg Capsule PO 0.25 mcg DAILY JENNIFER Administration Cinacalcet 60 mg 09/26/24 21:00 09/29/24 21:09 Cinacalcet 30 Mg Tablet PO 60 mg HS JENNIFER Administration Cyclobenzaprine HCl 5 mg 09/26/24 13:07 09/29/24 21:11 Cyclobenzaprine Hcl 5 Mg Tablet PO 5 mg TID PRN Administration muscle spasm Dextrose 12.5 gm 09/25/24 09:22 Dextrose 50% 25 Gm/50 Ml Syringe IV PUSH PRN PRN Hypoglycemia Protocol Diltiazem HCl 120 mg 09/29/24 10:50 09/29/24 11:52 Diltiazem Hcl Cd 120 Mg Cap.24hr PO 120 mg QAM JENNIFER Administration Doxazosin Mesylate 4 mg 09/26/24 21:00 09/29/24 21:10 Doxazosin Mesylate 4 Mg Tablet PO 4 mg HS JENNIFER Administration Epoetin Orestes-epbx 10,000 units 09/27/24 09:00 09/27/24 09:16 Epoetin Orestes-Epbx 10,000 Units/Ml Vial SUB-Q 10,000 units MOWEFR@09 JENNIFER Administration Gentamicin Sulfate 1 applic 09/25/24 21:00 09/29/24 10:24 Gentamicin Sulfate 0.1% Cr 15 Gm Tube TOPICAL 1 applic QHS JENNIFER Administration Glucagon 1 mg 09/25/24 09:22 Glucagon For Inj 1 Mg Vial IM PRN PRN Hypoglycemia Protocol Glucose 15 gm 09/25/24 09:22 Glucose Oral Gel 15 Gm Of Glucse In 37.5 Gm Tube PO PRN PRN Hypoglycemia Protocol Heparin Sodium (Porcine) 5,000 units 09/25/24 09:25 09/29/24 21:10 Heparin Sodium 5,000 Units/Ml Vial SUB-Q 5,000 units Q12HR JENNIFER Administration Dextrose 1,000 mls @ 100 mls/hr 09/25/24 09:22 Dextrose 5% 1,000 Ml IVPB PRN PRN Hypoglycemia Protocol Cefazolin Sodium 1 gm in 50 mls @ 100 mls/hr 09/27/24 13:00 09/29/24 15:07 Ancef 1 Gm/Ns 50 Ml IVPB Infused DAILY JENNIFER Infusion Insulin Aspart 2 - 5 units 09/26/24 06:30 09/29/24 21:18 Insulin Aspart (*Bkc) 100 Units/Ml SUB-Q 2 units ACHS [facility] Administration Protocol Insulin Glargine 12 units 09/25/24 21:00 09/29/24 21:19 Insulin Glargine (*Bkc) 100 Units/Ml 0.15 units/kg (12 units) 12 units SUB-Q Administration HS [facility] Metoprolol Succinate 50 mg 09/28/24 11:05 09/29/24 10:06 Metoprolol Succinate Ext Rel 50 Mg Tabcr PO 50 mg QAM JENNIFER Administration Pantoprazole Sodium 40 mg 09/25/24 21:00 09/29/24 21:11 Pantoprazole 40 Mg Tablet PO 40 mg Q12HR JENNFIER Administration Rosuvastatin Calcium 20 mg 09/26/24 09:00 09/29/24 10:08 Rosuvastatin 20 Mg Tablet PO 20 mg DAILY JENNIFER Administration Sevelamer Carbonate 1,600 mg 09/27/24 08:00 09/29/24 18:01 Sevelamer Carbonate 800 Mg Tablet PO 1,600 mg TIDWM JENNIFER Administration Temazepam 7.5 mg 09/26/24 21:00 09/29/24 21:11 Temazepam (*Crx) 7.5 Mg Capsule PO 10/26/24 20:59 7.5 mg HS [facility] Administration Trazodone HCl 50 mg 09/26/24 21:00 09/29/24 21:11 Trazodone Hcl 50 Mg Tablet PO 50 mg HS [facility] Administration Vitamin B Complex/Folic Acid 1 cap 09/26/24 09:00 09/29/24 10:08 Vitamin B Cmplx/Vit C/Folic Ac 1 Capsule PO 1 cap QAM [facility] Administration Vitamin D 4,000 units 09/26/24 09:00 09/29/24 10:06 Cholecalciferol 1,000 Units Tablet PO 4,000 units DAILY JENNIFER Administration Radiology Results: ITS Impressions Head CT 09/24/24 20:52 IMPRESSION: No acute intracranial process. Chest/Abdomen/Pelvis CT 09/24/24 20:56 IMPRESSION: No acute process detected in the chest. Considerable fat stranding surrounding the left lower quadrant transplant kidney, as can be seen with infection. Chest X-Ray 09/26/24 05:25 Impression: Minimal central pulmonary venous congestive change. Stable Mediport. Labs Labs: Laboratory Results - last 24 hr 09/29/24 09/29/24 09/29/24 08:08 12:50 16:54 WBC RBC Hgb Hct MCV MCH MCHC RDW Plt Count MPV Sodium Potassium Chloride Carbon Dioxide Anion Gap BUN Creatinine Estim Creat Clear Calc Estimated GFR Glucose POC Capillary Glucose 150 H 368 H 203 H Calcium Total Bilirubin AST ALT Alkaline Phosphatase Total Protein Albumin 09/29/24 09/30/24 09/30/24 20:33 04:33 07:40 WBC 6.6 RBC 2.77 L Hgb 7.8 L Hct 25.8 L MCV 93.1 MCH 28.2 MCHC 30.2 L RDW 19.1 H Plt Count 221 D MPV 11.1 H Sodium 131 L Potassium 3.5 Chloride 101 Carbon Dioxide 21 L Anion Gap 9 BUN 53 H Creatinine 8.30 H Estim Creat Clear Calc 6 Estimated GFR 5 L Glucose 104 POC Capillary Glucose 209 H 116 H Calcium 9.1 Total Bilirubin 0.4 AST 75 H ALT 44 H Alkaline Phosphatase 168 H Total Protein 5.0 L Albumin 2.6 L Quality VTE Prophylaxis VTE prophylaxis: pharmacologic ordered (heparin) Hospitalist [facility] Advance Care Plan I have confirmed that the patient's Advanced Care Plan is present, code status is documented, or surrogate decision maker is listed in patient medical record.: Yes Medication Reconciliation I have utilized all available resources to obtain, update and review the patients current medications (includes all prescriptions, OTC, herbals, cannabis, and nutritional supplements).: Yes
[2024-09-30] MEDS: ROSUVASTATIN 20 MG TABLET PO (08:55)
[2024-09-30] MEDS: METOPROLOL SUCCINATE EXT REL 50 MG TABCR PO (08:55)
[2024-09-30] MEDS: VITAMIN B CMPLX/VIT C/FOLIC AC 1 CAPSULE 1 CAP PO (08:55)
[2024-09-30] MEDS: SEVELAMER CARBONATE 800 MG TABLET 1600 MG PO ×3 (08:55→17:00)
[2024-09-30] MEDS: CHOLECALCIFEROL 1,000 UNITS TABLET 4000 UNITS PO (08:55)
[2024-09-30] MEDS: PANTOPRAZOLE 40 MG TABLET PO ×2 (08:56→20:35)
[2024-09-30] MEDS: calcitrioL 0.25 MCG CAPSULE PO (08:56)
[2024-09-30] MEDS: dilTIAZem HCL CD 120 MG CAP.24HR PO (08:56)
[2024-09-30] MEDS: allopurinoL 150 MG TABLET PO (08:56)
[2024-09-30] MEDS: HEPARIN SODIUM 5,000 UNITS/ML VIAL 5000 UNITS SUB-Q ×2 (08:57→20:55)
[2024-09-30] MEDS: EPOETIN ALFA-EPBX 10,000 UNITS/ML VIAL 10000 UNITS SUB-Q (09:07)
[2024-09-30] MEDS: ceFAZolin 1 GM/NS 50 ML 1 GM/50 ML BAG IVPB (12:11)
[2024-09-30] MEDS: INSULIN ASPART (*BKC) 100 UNITS/ML SUB-Q (12:18)
[2024-09-30 12:22] LABS: Glucose Point of Care 259 mg/dl (65-105)
[2024-09-30] MEDS: CENTRAL LINE FLUSH 10 ML IV PUSH ×2 (12:54→20:57)
--- NOTE | 2024-09-30 13:36 | PC.NURSE ---
This patient, Brandy Casey, was transferred to [[facility]-2 ] on 09/30/24 at 1336. Personal belongings sent with patient. Report given to [ Jose]. Appropriate documentation sent with patient.
--- NOTE | 2024-09-30 13:40 | PC.NURSE ---
This patient, Brandy Casey, was admitted to [facility] Surg Room 332-02. Patient/family oriented to hospital policies and general routines including ID bracelet, bed and alarms, visiting hours, pain management, procedures, bathroom and other care routines, personal items, smoking policy, room service/diet, and visiting hours. Information on how to activate the Rapid Response Team has been discussed. Patient/Family are encouraged to report perceived risks to care and to ask questions if they do not understand what they are told or what they should do.
--- NOTE | 2024-09-30 15:00 | P.PNNP_ITS ---
Progress Note: A&P Assessment and Plan (1) End stage renal disease: Code(s): N18.6 - End stage renal disease Status: Resolved Assessment and Plan: * continue nightly CCPD while hospitalized * follow electrolytes, volume status, and clearance * adjust PD presciption as needed (2) Sepsis: Code(s): A41.9 - Sepsis, unspecified organism Status: Acute Assessment and Plan: * suspected on admission with N/V/D + abdominal tenderness + altered mental status * UA not indicative of infection (and hence no urine culture done) * however, has a history of ESBL E.coli UTIs * noted perinephric stranding (around transplant kidney) on admission CT * no evidence of other acute infection by imaging * PD fluid and blood cultures noted (see #3) * follow trend of hemodynamics (3) Bacteremia: Code(s): R78.81 - Bacteremia Status: Resolved Assessment and Plan: * blood cultures noted: * on 09/24/24 - Staphylococcus aureus * on 09/26/23 - Staphylococcus aureus * on 09/28/23 - no growth to date * source not clear: * peritonitis (?) -- PD fluid analysis noted (high neutrophils present) - H OWEVER, PD fluid sample collected AFTER antibiotics given (so this could reflect partially treated peritonitis); PD fluid cultures negative * transplant kidney (?) -- considerable fat stranding surrounding the left lower quadrant transplant kidney * mediport (?) * other (?) * on antibiotics (4) NSTEMI (non-ST elevated myocardial infarction): Code(s): I21.4 - Non-ST elevation (NSTEMI) myocardial infarction Status: Acute Assessment and Plan: * suspected based on elevated troponins * however, chest pain symptoms are somewhat atypical * s/p heparin gtt * Echo noted with EF 30 - 35% * Cardiology following * cardiac catheterization results noted - no intervention done or significant CAD present * however, EF better at 50% * continue supportive therapy (5) Nausea, vomiting, and diarrhea: Code(s): R11.2 - Nausea with vomiting, unspecified; R19.7 - Diarrhea, unspecified Status: Acute Assessment and Plan: * noted by history * possibly secondary to #2 * symptoms better at this time * PRN IV antiemetics * follow symptoms (6) Hypertension: Qualifiers: Hypertension type: primary hypertension Qualified Code(s): I10 - Essential (primary) hypertension Code(s): I10 - Essential (primary) hypertension Status: Chronic Assessment and Plan: * reasonable control at this time * follow trend of hemodynamics (7) Chronic anemia: Code(s): D64.9 - Anemia, unspecified Status: Chronic Assessment and Plan: * due to ESRD * on Retacrit while hospitalized * however, acute illness/infection may limit effectiveness of DANE * follow trend of H/H (8) Type 2 diabetes mellitus: Qualifiers: Chronic kidney disease stage: on chronic dialysis Diabetes mellitus complication detail: with chronic kidney disease Diabetes mellitus complication status: with kidney complications Diabetes mellitus alf insulin use: w [facility] alf use Qualified Code(s): E11.22 - Type 2 diabetes mellitus with diabetic chronic kidney disease; N18.6 - End stage renal disease; Z99.2 - Dependence on renal dialysis Code(s): E11.9 - Type 2 diabetes mellitus without complications Status: Chronic Assessment and Plan: * follow accuchecks * glycemic control per hospitalist Will continue to follow. Subjective Date/time seen: 09/30/24 15:00 Interval history: Follow-up for end stage renal disease on peritoneal dialysis. Unable to see yesterday (09/29/24) due to weather and road conditions; chart reviewed since last seen -- no apparent distress noted at the time of my visit; unable to get peritoneal dialysis overnight due to inability of dialysis nurse to come in due to weather and road conditions; no issues/events overnight or earlier this morning. Exam 2 Narrative: General: WD/WN female in NAD Heart: normal S1 and S2; no rub Lungs: clear anteriorly; decreased at bases Abdomen: soft, nontender, nondistended, positive bowel sounds Extremities: no cyanosis or clubbing; no edema Skin: no nodules Objective Data Vital Signs Vital Signs: Vital Signs Temp Pulse Resp BP Pulse Ox O2 Del Method 09/30/24 14:49 96.1 F L 85 18 146/81 H 95 09/30/24 12:00 98.5 F 89 18 143/86 H 99 09/30/24 12:00 99 09/30/24 10:00 90 09/30/24 08:55 97 09/30/24 08:02 98.6 F 81 18 138/66 09/30/24 08:00 99 09/30/24 08:00 Room Air 09/30/24 05:20 98.6 F 100 18 148/77 H 99 09/30/24 04:00 111 H 09/30/24 00:00 95 09/29/24 20:41 99 F 97 18 146/76 H 98 09/29/24 20:00 97 09/29/24 20:00 95 18 98 Room Air Intake/Output Intake/Output: Intake & Output 09/27/24 09/28/24 09/29/24 09/30/24 23:59 23:59 23:59 23:59 Intake Total 1264.8 980 1580 1400 Output Total 1580 1105 1458 800 Balance -315.2 -125 122 600 Meds/Results Medications: Active Medications Generic Name Dose Route Start Last Admin Trade Name Freq PRN Reason Stop Dose Admin Acetaminophen 650 mg 09/25/24 18:05 09/30/24 13:48 Acetaminophen 325 Mg Tablet PO 650 mg Q6H PRN Administration Mild Pain (1-3) or Fever Albuterol 2 puff 09/25/24 16:39 Albuterol Sulfate (*Sp) Aerosol 1 Puff INHALATION QID PRN shortness of breath or wheezing Allopurinol 150 mg 09/26/24 09:00 09/30/24 08:56 Allopurinol 150 Mg Tablet PO 150 mg DAILY JENNIFER Administration Calcitriol 0.25 mcg 09/26/24 09:00 09/30/24 08:56 Calcitriol 0.25 Mcg Capsule PO 0.25 mcg DAILY JENNIFER Administration Cinacalcet 60 mg 09/26/24 21:00 09/29/24 21:09 Cinacalcet 30 Mg Tablet PO 60 mg HS JENNIFER Administration Cyclobenzaprine HCl 5 mg 09/26/24 13:07 09/29/24 21:11 Cyclobenzaprine Hcl 5 Mg Tablet PO 5 mg TID PRN Administration muscle spasm Dextrose 12.5 gm 09/25/24 09:22 Dextrose 50% 25 Gm/50 Ml Syringe IV PUSH PRN PRN Hypoglycemia Protocol Diltiazem HCl 120 mg 09/29/24 10:50 09/30/24 08:56 Diltiazem Hcl Cd 120 Mg Cap.24hr PO 120 mg QAM JENNIFER Administration Doxazosin Mesylate 4 mg 09/26/24 21:00 09/29/24 21:10 Doxazosin Mesylate 4 Mg Tablet PO 4 mg HS JENNIFER Administration Epoetin Orestes-epbx 10,000 units 09/27/24 09:00 09/30/24 09:07 Epoetin Orestes-Epbx 10,000 Units/Ml Vial SUB-Q 10,000 units MOWEFR@09 JENNIFER Administration Gentamicin Sulfate 1 applic 09/25/24 21:00 09/29/24 10:24 Gentamicin Sulfate 0.1% Cr 15 Gm Tube TOPICAL 1 applic QHS JENNIFER Administration Glucagon 1 mg 09/25/24 09:22 Glucagon For Inj 1 Mg Vial IM PRN PRN Hypoglycemia Protocol Glucose 15 gm 09/25/24 09:22 Glucose Oral Gel 15 Gm Of Glucse In 37.5 Gm Tube PO PRN PRN Hypoglycemia Protocol Heparin Sodium (Beef Lung) 50 units 10/01/24 09:00 Heparin Flush 50 Units/5 Ml Syringe IV PUSH QAM JENNIFER Heparin Sodium (Beef Lung) 50 units 09/30/24 11:14 09/30/24 12:54 Heparin Flush 50 Units/5 Ml Syringe IV PUSH 50 units PRN PRN Administration after intermittent infusion Heparin Sodium (Beef Lung) 50 units 09/30/24 11:14 Heparin Flush 50 Units/5 Ml Syringe IV PUSH PRN PRN after blood draws Heparin Sodium (Porcine) 5,000 units 09/25/24 09:25 09/30/24 08:57 Heparin Sodium 5,000 Units/Ml Vial SUB-Q 5,000 units Q12HR JENNIFER Administration Heparin Sodium (Porcine) 500 units 09/30/24 11:14 Heparin Sodium Lock Flush 500 Units/5 Ml Syringe IV PUSH PRN PRN see comments below Dextrose 1,000 mls @ 100 mls/hr 09/25/24 09:22 Dextrose 5% 1,000 Ml IVPB PRN PRN Hypoglycemia Protocol Cefazolin Sodium 1 gm in 50 mls @ 100 mls/hr 09/27/24 13:00 09/30/24 12:11 Ancef 1 Gm/Ns 50 Ml IVPB 100 mls/hr DAILY JENNIFER Administration Insulin Aspart 2 - 5 units 09/26/24 06:30 09/30/24 17:02 Insulin Aspart (*Bkc) 100 Units/Ml SUB-Q Not Given ACHS [facility] Protocol Insulin Glargine 12 units 09/25/24 21:00 09/29/24 21:19 Insulin Glargine (*Bkc) 100 Units/Ml 0.15 units/kg (12 units) 12 units SUB-Q Administration HS [facility] Metoprolol Succinate 50 mg 09/28/24 11:05 09/30/24 08:55 Metoprolol Succinate Ext Rel 50 Mg Tabcr PO 50 mg QAM JENNIEFR Administration Pantoprazole Sodium 40 mg 09/25/24 21:00 09/30/24 08:56 Pantoprazole 40 Mg Tablet PO 40 mg Q12HR JENNIFER Administration Rosuvastatin Calcium 20 mg 09/26/24 09:00 09/30/24 08:55 Rosuvastatin 20 Mg Tablet PO 20 mg DAILY JENNIFER Administration Sevelamer Carbonate 1,600 mg 09/27/24 08:00 09/30/24 17:00 Sevelamer Carbonate 800 Mg Tablet PO 1,600 mg TIDWM JENNIFER Administration Sodium Chloride 10 ml 09/30/24 14:00 09/30/24 12:54 Central Line Flush IV PUSH 10 ml Q8HR JENNIFER Administration Temazepam 7.5 mg 09/26/24 21:00 09/29/24 21:11 Temazepam (*Crx) 7.5 Mg Capsule PO 10/26/24 20:59 7.5 mg HS JENNIFER Administration Trazodone HCl 50 mg 09/26/24 21:00 09/29/24 21:11 Trazodone Hcl 50 Mg Tablet PO 50 mg HS JENNIFER Administration Vitamin B Complex/Folic Acid 1 cap 09/26/24 09:00 09/30/24 08:55 Vitamin B Cmplx/Vit C/Folic Ac 1 Capsule PO 1 cap QAM JENNIFER Administration Vitamin D 4,000 units 09/26/24 09:00 09/30/24 08:55 Cholecalciferol 1,000 Units Tablet PO 4,000 units DAILY JENNIFER Administration Radiology Results: ITS Impressions Head CT 09/24/24 20:52 IMPRESSION: No acute intracranial process. Chest/Abdomen/Pelvis CT 09/24/24 20:56 IMPRESSION: No acute process detected in the chest. Considerable fat stranding surrounding the left lower quadrant transplant kidney, as can be seen with infection. Chest X-Ray 09/26/24 05:25 Impression: Minimal central pulmonary venous congestive change. Stable Mediport. Labs Labs: Laboratory Tests 09/30/24 04:33 09/30/24 04:33 Calcium 9.1 Total Bilirubin 0.4 AST 75 H ALT 44 H Alkaline Phosphatase 168 H Total Protein 5.0 L Albumin 2.6 L
[2024-09-30 17:04] LABS: Glucose Point of Care 195 mg/dl (65-105)
[2024-09-30] MEDS: GENTAMICIN SULFATE 0.1% CR 15 GM TUBE 1 APPLIC TOPICAL (19:32)
[2024-09-30] MEDS: DOXAZOSIN MESYLATE 4 MG TABLET PO (20:35)
[2024-09-30] MEDS: CINACALCET 30 MG TABLET 60 MG PO (20:36)
[2024-09-30] MEDS: traZODone HCL 50 MG TABLET PO (20:36)
[2024-09-30] MEDS: TEMAZEPAM (*CRX) 7.5 MG CAPSULE PO (20:36)
[2024-09-30] MEDS: INSULIN GLARGINE (*BKC) 100 UNITS/ML 12 UNITS SUB-Q (20:38)
[2024-09-30] MEDS: CYCLOBENZAPRINE HCL 5 MG TABLET PO (20:48)
[2024-10-01] MEDS: CENTRAL LINE FLUSH 10 ML IV PUSH ×3 (05:32→21:34)
[2024-10-01 05:40] LABS: Hematocrit 24.5 % (37.0-47.0); Hemoglobin 7.6 g/dL (12.0-15.0); Mean Corpuscular Hemoglobin 28.8 pg (26-34); Mean Corpuscular Volume 92.8 fl (80-100); Mean Platelet Volume 10.7 fl (7.4-10.4); Platelet Count Result 258 k/mm3 (150-375); Red Blood Count 2.64 M/mm3 (4.2-5.4); Red Cell Distribution Width 19.2 % (11.5-14.5); White Blood Count 7.4 K/mm3 (4.5-10.0)
[2024-10-01 06:00] VITALS: BP 154/76; PULSE 104; RESP 16; TEMP 36.2; O2SAT 94
[2024-10-01 06:03] LABS: Alanine Aminotransferase 21 U/L (6-35); Albumin Level 2.6 g/dL (3.5-5.1); Alkaline Phosphatase 164 U/L (38-126); Anion Gap 8 mmol/L (4-12); Aspartate Amino Transferase 35 U/L (14-36); Bilirubin,Total 0.4 mg/dL (0.2-1.3); Blood Urea Nitrogen 50 mg/dL (7-17); Calcium 9.2 mg/dL (8.4-10.2); Carbon Dioxide 24 mmol/L (22-30); Chloride 100 mmol/L (98-107); Estimated CRCL calculation 6 ml/min; Estimated Glomerular Filt Rate 5; Glucose 210 mg/dL (65-110); Potassium 3.7 mmol/L (3.4-5.0); Sodium 132 mmol/L (137-145)
[2024-10-01 08:20] LABS: Glucose Point of Care 178 mg/dl (65-105)
[2024-10-01 08:30] VITALS: BP 154/76; PULSE 90; RESP 18; TEMP 36.2
[2024-10-01 08:43] VITALS: PULSE 106
[2024-10-01] MEDS: METOPROLOL SUCCINATE EXT REL 50 MG TABCR PO (08:43)
[2024-10-01] MEDS: allopurinoL 150 MG TABLET PO (08:44)
[2024-10-01] MEDS: calcitrioL 0.25 MCG CAPSULE PO (08:44)
[2024-10-01] MEDS: ceFAZolin 1 GM/NS 50 ML 1 GM/50 ML BAG IVPB (08:44)
[2024-10-01] MEDS: SEVELAMER CARBONATE 800 MG TABLET 1600 MG PO ×3 (08:44→17:22)
[2024-10-01] MEDS: HEPARIN SODIUM 5,000 UNITS/ML VIAL 5000 UNITS SUB-Q ×2 (08:45→21:29)
[2024-10-01] MEDS: PANTOPRAZOLE 40 MG TABLET PO ×2 (08:45→21:29)
[2024-10-01] MEDS: CHOLECALCIFEROL 1,000 UNITS TABLET 4000 UNITS PO (08:45)
[2024-10-01] MEDS: dilTIAZem HCL CD 120 MG CAP.24HR PO (08:45)
[2024-10-01] MEDS: ROSUVASTATIN 20 MG TABLET PO (08:45)
[2024-10-01] MEDS: VITAMIN B CMPLX/VIT C/FOLIC AC 1 CAPSULE 1 CAP PO (08:45)
--- NOTE | 2024-10-01 11:37 | P.PNNP_ITS ---
Progress Note: A&P Assessment and Plan (1) End stage renal disease: Code(s): N18.6 - End stage renal disease Status: Resolved Assessment and Plan: * continue nightly CCPD while hospitalized * follow electrolytes, volume status, and clearance * adjust PD presciption as needed (2) Sepsis: Code(s): A41.9 - Sepsis, unspecified organism Status: Acute Assessment and Plan: * suspected on admission with N/V/D + abdominal tenderness + altered mental status * UA not indicative of infection (and hence no urine culture done) * however, has a history of ESBL E.coli UTIs * noted perinephric stranding (around transplant kidney) on admission CT * no evidence of other acute infection by imaging * PD fluid and blood cultures noted (see #3) * follow trend of hemodynamics (3) Bacteremia: Code(s): R78.81 - Bacteremia Status: Resolved Assessment and Plan: * blood cultures noted: * on 09/24/24 - Staphylococcus aureus * on 09/26/23 - Staphylococcus aureus * on 09/28/23 - no growth to date * source not clear: * peritonitis (?) -- PD fluid analysis noted (high neutrophils present) - H OWEVER, PD fluid sample collected AFTER antibiotics given (so this could reflect partially treated peritonitis); PD fluid cultures negative * transplant kidney (?) -- considerable fat stranding surrounding the left lower quadrant transplant kidney * mediport (?) * other (?) * on antibiotics (4) NSTEMI (non-ST elevated myocardial infarction): Code(s): I21.4 - Non-ST elevation (NSTEMI) myocardial infarction Status: Acute Assessment and Plan: * suspected based on elevated troponins * however, chest pain symptoms are somewhat atypical * s/p heparin gtt * Echo noted with EF 30 - 35% * Cardiology following * cardiac catheterization results noted - no intervention done or significant CAD present * however, EF better at 50% * continue supportive therapy (5) Nausea, vomiting, and diarrhea: Code(s): R11.2 - Nausea with vomiting, unspecified; R19.7 - Diarrhea, unspecified Status: Acute Assessment and Plan: * noted by history * possibly secondary to #2 * symptoms better at this time * PRN IV antiemetics * follow symptoms (6) Hypertension: Qualifiers: Hypertension type: primary hypertension Qualified Code(s): I10 - Essential (primary) hypertension Code(s): I10 - Essential (primary) hypertension Status: Chronic Assessment and Plan: * reasonable control at this time * follow trend of hemodynamics (7) Chronic anemia: Code(s): D64.9 - Anemia, unspecified Status: Chronic Assessment and Plan: * due to ESRD * on Retacrit while hospitalized * however, acute illness/infection may limit effectiveness of DANE * follow-up on anemia studies * however, given #3, would hold IV venofer use * follow trend of H/H (8) Type 2 diabetes mellitus: Qualifiers: Chronic kidney disease stage: on chronic dialysis Diabetes mellitus complication detail: with chronic kidney disease Diabetes mellitus complication status: with kidney complications Diabetes mellitus senior care insulin use: w [facility] supervisor intermediates use Qualified Code(s): E11.22 - Type 2 diabetes mellitus with diabetic chronic kidney disease; N18.6 - End stage renal disease; Z99.2 - Dependence on renal dialysis Code(s): E11.9 - Type 2 diabetes mellitus without complications Status: Chronic Assessment and Plan: * follow accuchecks * glycemic control per hospitalist Will continue to follow. L Subjective Date/time seen: 10/01/24 11:37 Interval history: Follow-up for end stage renal disease on peritoneal dialysis. Tolerated peritoneal dialysis treatment overnight without any issues (CCPD supervised and seen at 11:15AM); no apparent distress voiced at the time of my visit; H/H running on the low side despite dosing with Retacrit; no other events overnight or earlier this morning. Exam 2 Narrative: General: WD/WN female in NAD Heart: normal S1 and S2; no rub Lungs: clear anteriorly; decreased at bases Abdomen: soft, nontender, nondistended, positive bowel sounds Extremities: no cyanosis or clubbing; no edema Skin: warm and dry Objective Data Vital Signs Vital Signs: Vital Signs Temp Pulse Resp BP Pulse Ox 10/01/24 11:00 98.2 F 86 16 153/88 H 94 10/01/24 08:43 106 H 10/01/24 08:30 97.2 F L 90 18 154/76 H 10/01/24 06:00 97.2 F L 104 H 16 154/76 H 94 09/30/24 22:00 97.5 F L 106 H 20 144/94 H 99 Intake/Output Intake/Output: Intake & Output 09/28/24 09/29/24 09/30/24 10/01/24 23:59 23:59 23:59 23:59 Intake Total 980 1580 1450 1080 Output Total 1105 2492 090 0286 Balance -125 122 650 -398 Meds/Results Medications: Active Medications Generic Name Dose Route Start Last Admin Trade Name Freq PRN Reason Stop Dose Admin Acetaminophen 650 mg 09/25/24 18:05 09/30/24 13:48 Acetaminophen 325 Mg Tablet PO 650 mg Q6H PRN Administration Mild Pain (1-3) or Fever Albuterol 2 puff 09/25/24 16:39 Albuterol Sulfate (*Sp) Aerosol 1 Puff INHALATION QID PRN shortness of breath or wheezing Allopurinol 150 mg 09/26/24 09:00 10/01/24 08:44 Allopurinol 150 Mg Tablet PO 150 mg DAILY JENNIFER Administration Calcitriol 0.25 mcg 09/26/24 09:00 10/01/24 08:44 Calcitriol 0.25 Mcg Capsule PO 0.25 mcg DAILY JENNIFER Administration Cinacalcet 60 mg 09/26/24 21:00 09/30/24 20:36 Cinacalcet 30 Mg Tablet PO 60 mg HS JENNIFER Administration Cyclobenzaprine HCl 5 mg 09/26/24 13:07 09/30/24 20:48 Cyclobenzaprine Hcl 5 Mg Tablet PO 5 mg TID PRN Administration muscle spasm Dextrose 12.5 gm 09/25/24 09:22 Dextrose 50% 25 Gm/50 Ml Syringe IV PUSH PRN PRN Hypoglycemia Protocol Diltiazem HCl 120 mg 09/29/24 10:50 10/01/24 08:45 Diltiazem Hcl Cd 120 Mg Cap.24hr PO 120 mg QAM JENNIFER Administration Doxazosin Mesylate 4 mg 09/26/24 21:00 09/30/24 20:35 Doxazosin Mesylate 4 Mg Tablet PO 4 mg HS JENNIFER Administration Epoetin Orestes-epbx 10,000 units 09/27/24 09:00 09/30/24 09:07 Epoetin Orestes-Epbx 10,000 Units/Ml Vial SUB-Q 10,000 units MOWEFR@09 JENNIFER Administration Gentamicin Sulfate 1 applic 09/25/24 21:00 09/30/24 19:32 Gentamicin Sulfate 0.1% Cr 15 Gm Tube TOPICAL 1 applic QHS JENNIFER Administration Glucagon 1 mg 09/25/24 09:22 Glucagon For Inj 1 Mg Vial IM PRN PRN Hypoglycemia Protocol Glucose 15 gm 09/25/24 09:22 Glucose Oral Gel 15 Gm Of Glucse In 37.5 Gm Tube PO PRN PRN Hypoglycemia Protocol Heparin Sodium (Beef Lung) 50 units 10/01/24 09:00 10/01/24 08:43 Heparin Flush 50 Units/5 Ml Syringe IV PUSH 50 units QAM JENNIFER Administration Heparin Sodium (Beef Lung) 50 units 09/30/24 11:14 09/30/24 12:54 Heparin Flush 50 Units/5 Ml Syringe IV PUSH 50 units PRN PRN Administration after intermittent infusion Heparin Sodium (Beef Lung) 50 units 09/30/24 11:14 10/01/24 11:26 Heparin Flush 50 Units/5 Ml Syringe IV PUSH 50 units PRN PRN Administration after blood draws Heparin Sodium (Porcine) 5,000 units 09/25/24 09:25 10/01/24 08:45 Heparin Sodium 5,000 Units/Ml Vial SUB-Q 5,000 units Q12HR JENNIFER Administration Heparin Sodium (Porcine) 500 units 09/30/24 11:14 Heparin Sodium Lock Flush 500 Units/5 Ml Syringe IV PUSH PRN PRN see comments below Dextrose 1,000 mls @ 100 mls/hr 09/25/24 09:22 Dextrose 5% 1,000 Ml IVPB PRN PRN Hypoglycemia Protocol Cefazolin Sodium 1 gm in 50 mls @ 100 mls/hr 09/27/24 13:00 10/01/24 08:44 Ancef 1 Gm/Ns 50 Ml IVPB 100 mls/hr DAILY JENNIFER Administration Insulin Aspart 2 - 5 units 09/26/24 06:30 10/01/24 13:14 Insulin Aspart (*Bkc) 100 Units/Ml SUB-Q 3 units ACHS JENNIFER Administration Protocol Insulin Glargine 12 units 09/25/24 21:00 09/30/24 20:38 Insulin Glargine (*Bkc) 100 Units/Ml 0.15 units/kg (12 units) 12 units SUB-Q Administration HS JENNIFER Metoprolol Succinate 50 mg 09/28/24 11:05 10/01/24 08:43 Metoprolol Succinate Ext Rel 50 Mg Tabcr PO 50 mg QAM JENNIFER Administration Pantoprazole Sodium 40 mg 09/25/24 21:00 10/01/24 08:45 Pantoprazole 40 Mg Tablet PO 40 mg Q12HR JENNIFER Administration Rosuvastatin Calcium 20 mg 09/26/24 09:00 10/01/24 08:45 Rosuvastatin 20 Mg Tablet PO 20 mg DAILY JENNIFER Administration Sevelamer Carbonate 1,600 mg 09/27/24 08:00 10/01/24 11:26 Sevelamer Carbonate 800 Mg Tablet PO 1,600 mg TIDWM JENNIFER Administration Sodium Chloride 10 ml 09/30/24 14:00 10/01/24 14:00 Central Line Flush IV PUSH 10 ml Q8HR JENNIFER Administration Temazepam 7.5 mg 09/26/24 21:00 09/30/24 20:36 Temazepam (*Crx) 7.5 Mg Capsule PO 10/26/24 20:59 7.5 mg HS JENNIFER Administration Trazodone HCl 50 mg 09/26/24 21:00 09/30/24 20:36 Trazodone Hcl 50 Mg Tablet PO 50 mg HS JENNIFER Administration Vitamin B Complex/Folic Acid 1 cap 09/26/24 09:00 10/01/24 08:45 Vitamin B Cmplx/Vit C/Folic Ac 1 Capsule PO 1 cap QAM JENNIFER Administration Vitamin D 4,000 units 09/26/24 09:00 10/01/24 08:45 Cholecalciferol 1,000 Units Tablet PO 4,000 units DAILY JENNIFER Administration Radiology Results: ITS Impressions Head CT 09/24/24 20:52 IMPRESSION: No acute intracranial process. Chest/Abdomen/Pelvis CT 09/24/24 20:56 IMPRESSION: No acute process detected in the chest. Considerable fat stranding surrounding the left lower quadrant transplant kidney, as can be seen with infection. Chest X-Ray 09/26/24 05:25 Impression: Minimal central pulmonary venous congestive change. Stable Mediport. Labs Labs: Laboratory Tests 10/01/24 05:28 10/01/24 05:28 Calcium 9.2 Total Bilirubin 0.4 AST 35 ALT 21 Alkaline Phosphatase 164 H Total Protein 6.0 L Albumin 2.6 L Microbiology 09/26/24 07:25 Peritoneal Fluid Anaerobic Culture - Preliminary 09/26/24 07:25 Peritoneal Fluid Aerobic Culture - Final
[2024-10-01 11:57] LABS: Glucose Point of Care 251 mg/dl (65-105)
[2024-10-01 12:31] LABS: Iron 12 ug/dL (37-170)
[2024-10-01 12:45] LABS: Percent Iron Saturation 5 % (20-50)
[2024-10-01] MEDS: INSULIN ASPART (*BKC) 100 UNITS/ML SUB-Q ×3 (13:14→21:29)
[2024-10-01 14:00] VITALS: BP 153/88; PULSE 86; RESP 16; TEMP 36.8; O2SAT 94
--- NOTE | 2024-10-01 14:23 | P.PNIM_ITS ---
Progress Note: A&P Assessment and Plan (1) Sepsis: Code(s): A41.9 - Sepsis, unspecified organism Status: Acute Assessment and Plan: * Given GI symptoms, abdominal tenderness, and PD catheter, she likely has remberto tonitis secondary to PD. * Has hx of ESBL E. coli UTI in 2021, however urine now shows no signs of infection although she does have perinephric stranding on CT. * No signs of symptoms of pneumonia, sinusitis, bronchitis (CT C/A/P unrevealing). * No signs of symptoms of cellulitis. * Peritoneal fluid analysis reviewed * Started on Ancef due to MSSA. Continue for three weeks. * DC vancomycin * Pending results of repeat blood culture. * Reviewed peritoneal fluid analysis * Monitor I/O. * BC 09/24 :Positive for Staph.Aureus BC 09/26: Positive for Staph.Aureus BC 09/28: Ordered awaiting home antibiotics set up (2) Type 2 diabetes mellitus: Qualifiers: Diabetes mellitus prison insulin use: without terminal make up operator use Diabetes mellitus complication status: with kidney complications Diabetes mellitus complication detail: with chronic kidney disease Chronic kidney disease stage: on chronic dialysis Qualified Code(s): E11.22 - Type 2 diabetes mellitus with diabetic chronic kidney disease; N18.6 - End stage renal disease; Z99.2 - Dependence on renal dialysis Code(s): E11.9 - Type 2 diabetes mellitus without complications Status: Chronic Assessment and Plan: * Basal-bolus insulin regimen with glucose goal 140-180 mg/dl. (3) End-stage renal disease (ESRD): Code(s): N18.6 - End stage renal disease Status: Acute Assessment and Plan: * Nephrology consultation for dialysis management (primary supervisor finishing department is Dr. Hope). (4) Chronic anemia: Code(s): D64.9 - Anemia, unspecified Status: Chronic Assessment and Plan: * Related to ESRD and stable * Isat 5, IV iron 200/1000 * FOBT pending * monitor Hb (5) Thrombocytopenia: Code(s): D69.6 - Thrombocytopenia, unspecified Status: Chronic Assessment and Plan: * Worsened from baseline of 165K, likely due to sepsis. * Monitor. (6) Hypertension: Qualifiers: Hypertension type: primary hypertension Qualified Code(s): I10 - Essential (primary) hypertension Code(s): I10 - Essential (primary) hypertension Status: Chronic Assessment and Plan: * Continue Metoprolol, Lisinopril, Nifedipine (7) Abnormal EKG: Code(s): R94.31 - Abnormal electrocardiogram [ECG] [EKG] Status: Acute Assessment and Plan: * Abnormalities in anterior leads more pronounced (poor anterior R-wave progression) than in 202. * Echocardiogram Left ventricular systolic function is severely reduced, estimated at 30-35%. * Monitor on telemetry. (8) Elevated troponin I level: Code(s): R79.89 - Other specified abnormal findings of blood chemistry Status: Acute Assessment and Plan: * Elevated baseline due to ESRD, however increase is worrisome for demand (type 2) [place] due to sepsis. * Increase metoprolol to limit myocardial oxygen demand. * Continue ASA. * Cardiac Cath 09/27: Conclusion:: 1. Nonischemic cardiomyopathy 2. Normal LVEDP 3. 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 (10) Metabolic encephalopathy: Code(s): G93.41 - Metabolic encephalopathy Status: Acute Assessment and Plan: * Clinically due to sepsis. * No focal findings to suggest stroke. * No neck rigidity or tenderness to suggest meningitis or encephalitis. Plan DVT prophylaxis on SCDs, no AC due to possible GI bleed Subjective Date/time seen: 10/01/24 14:23 Interval history: Comfortable at bedside Awaiting home Abx setup however Isat 5 and hb 7.6 FOBT pending Review of Systems Review of Systems: ROS unobtainable: Yes unobtainable due to medical condition Exam Narrative: HEENT: PERRL, sclerae nonicteric, pharyngeal mucosa dry, pink, and intact NECK: No JVD, adenopathy, or thyromegaly CHEST: Clear to auscultation. Normal effort. HEART: NL S1/S2, regular, tachycardic, no murmur. ABDOMEN: BS hypoactive, soft, TENDER DIFFUSELY WITHOUT OBVIOUS GUARDING OR REBOUND, PD CATHETER IN PLACE AND SITE APPEARS CLEAN AND DRY. EXTREMITIES: No cyanosis, edema, or clubbing. DP PULSES 2+ BILATERALLY. No ulcerations of erythema of feet. NEUROLOGIC: CN intact and symmetric to inspection. Tone and strength seem symmetric with spontaneous movement in all 4 extremities and turning over in bed and attempting to get out of bed independently. MUSCULOSKELETAL: No gross deformities to visual inspection. PSYCH: Drowsy. Easily aroused. Response to both verbal and tactile stimuli but does not follow directions. Speech is monosyllabic. Objective Data Vital Signs Vital Signs: Vital Signs - 24 hr 09/30/24 15:49 09/30/24 22:00 10/01/24 06:00 Temperature 96.1 F L 97.5 F L 97.2 F L Pulse Rate 85 106 H 104 H Respiratory Rate 18 20 16 Blood Pressure 146/81 H 144/94 H 154/76 H Pulse Oximetry 95 99 94 10/01/24 08:30 10/01/24 08:43 Temperature 97.2 F L Pulse Rate 90 106 H Respiratory Rate 18 Blood Pressure 154/76 H Pulse Oximetry Intake/Output Intake/Output: Intake & Output 09/28/24 09/29/24 09/30/24 10/01/24 23:59 23:59 23:59 23:59 Intake Total 980 1580 1450 840 Output Total 1105 6019 751 1700 Balance -125 122 650 -638 Meds/Results Medications: Active Medications Generic Name Dose Route Start Last Admin Trade Name Freq PRN Reason Stop Dose Admin Acetaminophen 650 mg 09/25/24 18:05 09/30/24 13:48 Acetaminophen 325 Mg Tablet PO 650 mg Q6H PRN Administration Mild Pain (1-3) or Fever Albuterol 2 puff 09/25/24 16:39 Albuterol Sulfate (*Sp) Aerosol 1 Puff INHALATION QID PRN shortness of breath or wheezing Allopurinol 150 mg 09/26/24 09:00 10/01/24 08:44 Allopurinol 150 Mg Tablet PO 150 mg DAILY JENNIFER Administration Calcitriol 0.25 mcg 09/26/24 09:00 10/01/24 08:44 Calcitriol 0.25 Mcg Capsule PO 0.25 mcg DAILY JENNIFER Administration Cinacalcet 60 mg 09/26/24 21:00 09/30/24 20:36 Cinacalcet 30 Mg Tablet PO 60 mg HS JENNIFER Administration Cyclobenzaprine HCl 5 mg 09/26/24 13:07 09/30/24 20:48 Cyclobenzaprine Hcl 5 Mg Tablet PO 5 mg TID PRN Administration muscle spasm Dextrose 12.5 gm 09/25/24 09:22 Dextrose 50% 25 Gm/50 Ml Syringe IV PUSH PRN PRN Hypoglycemia Protocol Diltiazem HCl 120 mg 09/29/24 10:50 10/01/24 08:45 Diltiazem Hcl Cd 120 Mg Cap.24hr PO 120 mg QAM JENNIFER Administration Doxazosin Mesylate 4 mg 09/26/24 21:00 09/30/24 20:35 Doxazosin Mesylate 4 Mg Tablet PO 4 mg HS JENNIFER Administration Epoetin Orestes-epbx 10,000 units 09/27/24 09:00 09/30/24 09:07 Epoetin Orestes-Epbx 10,000 Units/Ml Vial SUB-Q 10,000 units MOWEFR@09 JENNIFER Administration Gentamicin Sulfate 1 applic 09/25/24 21:00 09/30/24 19:32 Gentamicin Sulfate 0.1% Cr 15 Gm Tube TOPICAL 1 applic QHS JENNIFER Administration Glucagon 1 mg 09/25/24 09:22 Glucagon For Inj 1 Mg Vial IM PRN PRN Hypoglycemia Protocol Glucose 15 gm 09/25/24 09:22 Glucose Oral Gel 15 Gm Of Glucse In 37.5 Gm Tube PO PRN PRN Hypoglycemia Protocol Heparin Sodium (Beef Lung) 50 units 10/01/24 09:00 10/01/24 08:43 Heparin Flush 50 Units/5 Ml Syringe IV PUSH 50 units QAM JENNIFER Administration Heparin Sodium (Beef Lung) 50 units 09/30/24 11:14 09/30/24 12:54 Heparin Flush 50 Units/5 Ml Syringe IV PUSH 50 units PRN PRN Administration after intermittent infusion Heparin Sodium (Beef Lung) 50 units 09/30/24 11:14 10/01/24 11:26 Heparin Flush 50 Units/5 Ml Syringe IV PUSH 50 units PRN PRN Administration after blood draws Heparin Sodium (Porcine) 5,000 units 09/25/24 09:25 10/01/24 08:45 Heparin Sodium 5,000 Units/Ml Vial SUB-Q 5,000 units Q12HR JENNIFER Administration Heparin Sodium (Porcine) 500 units 09/30/24 11:14 Heparin Sodium Lock Flush 500 Units/5 Ml Syringe IV PUSH PRN PRN see comments below Dextrose 1,000 mls @ 100 mls/hr 09/25/24 09:22 Dextrose 5% 1,000 Ml IVPB PRN PRN Hypoglycemia Protocol Cefazolin Sodium 1 gm in 50 mls @ 100 mls/hr 09/27/24 13:00 10/01/24 08:44 Ancef 1 Gm/Ns 50 Ml IVPB 100 mls/hr DAILY JENNIFER Administration Insulin Aspart 2 - 5 units 09/26/24 06:30 10/01/24 13:14 Insulin Aspart (*Bkc) 100 Units/Ml SUB-Q 3 units ACHS JENNIFER Administration Protocol Insulin Glargine 12 units 09/25/24 21:00 09/30/24 20:38 Insulin Glargine (*Bkc) 100 Units/Ml 0.15 units/kg (12 units) 12 units SUB-Q Administration HS [facility] Metoprolol Succinate 50 mg 09/28/24 11:05 10/01/24 08:43 Metoprolol Succinate Ext Rel 50 Mg Tabcr PO 50 mg QAM JENNIFER Administration Pantoprazole Sodium 40 mg 09/25/24 21:00 10/01/24 08:45 Pantoprazole 40 Mg Tablet PO 40 mg Q12HR JENNIFER Administration Rosuvastatin Calcium 20 mg 09/26/24 09:00 10/01/24 08:45 Rosuvastatin 20 Mg Tablet PO 20 mg DAILY JENNIFER Administration Sevelamer Carbonate 1,600 mg 09/27/24 08:00 10/01/24 11:26 Sevelamer Carbonate 800 Mg Tablet PO 1,600 mg TIDWM JENNIFER Administration Sodium Chloride 10 ml 09/30/24 14:00 10/01/24 05:32 Central Line Flush IV PUSH 10 ml Q8HR JENNIFER Administration Temazepam 7.5 mg 09/26/24 21:00 09/30/24 20:36 Temazepam (*Crx) 7.5 Mg Capsule PO 10/26/24 20:59 7.5 mg HS JENNIFER Administration Trazodone HCl 50 mg 09/26/24 21:00 09/30/24 20:36 Trazodone Hcl 50 Mg Tablet PO 50 mg HS JENNIFER Administration Vitamin B Complex/Folic Acid 1 cap 09/26/24 09:00 10/01/24 08:45 Vitamin B Cmplx/Vit C/Folic Ac 1 Capsule PO 1 cap QAM JENNIFER Administration Vitamin D 4,000 units 09/26/24 09:00 10/01/24 08:45 Cholecalciferol 1,000 Units Tablet PO 4,000 units DAILY JENNIFER Administration Radiology Results: ITS Impressions Head CT 09/24/24 20:52 IMPRESSION: No acute intracranial process. Chest/Abdomen/Pelvis CT 09/24/24 20:56 IMPRESSION: No acute process detected in the chest. Considerable fat stranding surrounding the left lower quadrant transplant kidney, as can be seen with infection. Chest X-Ray 09/26/24 05:25 Impression: Minimal central pulmonary venous congestive change. Stable Mediport. Labs Labs: Laboratory Results - last 24 hr 09/30/24 10/01/24 10/01/24 17:01 05:28 07:50 WBC 7.4 RBC 2.64 L Hgb 7.6 L Hct 24.5 L MCV 92.8 MCH 28.8 MCHC 31.0 L RDW 19.2 H Plt Count 258 MPV 10.7 H Sodium 132 L Potassium 3.7 Chloride 100 Carbon Dioxide 24 Anion Gap 8 BUN 50 H Creatinine 7.50 H Estim Creat Clear Calc 6 Estimated GFR 5 L Glucose 210 H POC Capillary Glucose 195 H 178 H Calcium 9.2 Iron TIBC % Saturation Total Bilirubin 0.4 AST 35 ALT 21 Alkaline Phosphatase 164 H Total Protein 6.0 L Albumin 2.6 L 10/01/24 10/01/24 11:25 11:53 WBC RBC Hgb Hct MCV MCH MCHC RDW Plt Count MPV Sodium Potassium Chloride Carbon Dioxide Anion Gap BUN Creatinine Estim Creat Clear Calc Estimated GFR Glucose POC Capillary Glucose 251 H Calcium Iron 12 L TIBC 238 L % Saturation 5 L Total Bilirubin AST ALT Alkaline Phosphatase Total Protein Albumin Quality VTE Prophylaxis VTE prophylaxis: pharmacologic ordered (heparin)
[2024-10-01] MEDS: IRON SUCROSE COMPLEX 200 MG in SODIUM CHLORIDE 0.9% IV 100 ML 220 MG IVPB (15:31)
[2024-10-01 17:07] LABS: Glucose Point of Care 217 mg/dl (65-105)
[2024-10-01 21:29] LABS: Glucose Point of Care 203 mg/dl (65-105)
[2024-10-01] MEDS: GENTAMICIN SULFATE 0.1% CR 15 GM TUBE 1 APPLIC TOPICAL (21:29)
[2024-10-01] MEDS: CINACALCET 30 MG TABLET 60 MG PO (21:29)
[2024-10-01] MEDS: INSULIN GLARGINE (*BKC) 100 UNITS/ML 12 UNITS SUB-Q (21:29)
[2024-10-01] MEDS: DOXAZOSIN MESYLATE 4 MG TABLET PO (21:29)
[2024-10-01 21:30] VITALS: PULSE 95; RESP 18; O2SAT 97
[2024-10-01] MEDS: traZODone HCL 50 MG TABLET PO (21:30)
[2024-10-01] MEDS: TEMAZEPAM (*CRX) 7.5 MG CAPSULE PO (21:30)
[2024-10-01 21:37] VITALS: BP 149/89; PULSE 95; RESP 18; TEMP 36.2; O2SAT 97
[2024-10-02] MEDS: CENTRAL LINE FLUSH 10 ML IV PUSH (05:34)
[2024-10-02 05:41] LABS: Basophils Percent Auto 0.7 % (0.2-1.2); Eosinophils Absolute Auto 0.1 K/mm3 (0-0.3); Eosinophils Percent Auto 2.2 % (0-4.4); Hemoglobin 7.9 g/dL (12.0-15.0); Immature Granulocyte Absolute 0.06 K/mm3 (0.00-0.031); Lymphocytes Absolute Auto 1.03 K/mm3 (0.9-3.2); Lymphocytes Percent Auto 17.4 % (18.3-44.2); Mean Corpuscular HGB Conc 30.4 g/dl (32-36); Mean Corpuscular Hemoglobin 28.6 pg (26-34); Mean Corpuscular Volume 94.2 fl (80-100); Mean Platelet Volume 9.9 fl (7.4-10.4); Monocytes Absolute Auto 0.5 K/mm3 (0.1-0.6); Neutrophils Absolute Auto 4.2 K/mm3 (1.3-6.7); Neutrophils Percent Auto 70.7 % (45.5-73.1); Platelet Count Result 289 k/mm3 (150-375); Red Blood Count 2.76 M/mm3 (4.2-5.4); Red Cell Distribution Width 19.3 % (11.5-14.5); White Blood Count 5.9 K/mm3 (4.5-10.0)
[2024-10-02 05:56] LABS: Alanine Aminotransferase 15 U/L (6-35); Albumin Level 2.7 g/dL (3.5-5.1); Alkaline Phosphatase 188 U/L (38-126); Anion Gap 7 mmol/L (4-12); Aspartate Amino Transferase 35 U/L (14-36); Bilirubin,Total 0.4 mg/dL (0.2-1.3); Blood Urea Nitrogen 45 mg/dL (7-17); Calcium 9.4 mg/dL (8.4-10.2); Carbon Dioxide 25 mmol/L (22-30); Chloride 100 mmol/L (98-107); Estimated CRCL calculation 7 ml/min; Estimated Glomerular Filt Rate 5; Glucose 201 mg/dL (65-110); Magnesium 1.6 mg/dL (1.6-2.3); Potassium 3.4 mmol/L (3.4-5.0); Sodium 132 mmol/L (137-145)
[2024-10-02 06:00] VITALS: BP 154/88; PULSE 101; RESP 18; TEMP 36.4; O2SAT 96
[2024-10-02 08:00] VITALS: BP 130/60; PULSE 80; RESP 20; TEMP 36.2; O2SAT 100
[2024-10-02 08:43] LABS: Glucose Point of Care 204 mg/dl (65-105)
[2024-10-02] MEDS: INSULIN ASPART (*BKC) 100 UNITS/ML SUB-Q ×2 (09:18→11:43)
[2024-10-02] MEDS: EPOETIN ALFA-EPBX 10,000 UNITS/ML VIAL 10000 UNITS SUB-Q (09:19)
[2024-10-02] MEDS: HEPARIN SODIUM 5,000 UNITS/ML VIAL 5000 UNITS SUB-Q (09:20)
[2024-10-02] MEDS: ROSUVASTATIN 20 MG TABLET PO (09:21)
[2024-10-02] MEDS: dilTIAZem HCL CD 120 MG CAP.24HR PO (09:21)
[2024-10-02] MEDS: PANTOPRAZOLE 40 MG TABLET PO (09:22)
[2024-10-02] MEDS: SEVELAMER CARBONATE 800 MG TABLET 1600 MG PO ×2 (09:22→11:43)
[2024-10-02] MEDS: METOPROLOL SUCCINATE EXT REL 50 MG TABCR PO (09:22)
[2024-10-02] MEDS: allopurinoL 150 MG TABLET PO (09:22)
[2024-10-02] MEDS: CHOLECALCIFEROL 1,000 UNITS TABLET 4000 UNITS PO (09:22)
[2024-10-02] MEDS: calcitrioL 0.25 MCG CAPSULE PO (09:23)
[2024-10-02] MEDS: VITAMIN B CMPLX/VIT C/FOLIC AC 1 CAPSULE 1 CAP PO (09:23)
[2024-10-02] MEDS: ceFAZolin 1 GM/NS 50 ML 1 GM/50 ML BAG IVPB (09:23)
--- NOTE | 2024-10-02 10:31 | PCNWS ---
Weekly nutritional screen. Patient is tolerating current Heart healthy diet with adequate intake, 50-100%. Weight changes from peritoneal dialysis. No nutritional needs at this time.
[2024-10-02] MEDS: IRON SUCROSE COMPLEX 200 MG in SODIUM CHLORIDE 0.9% IV 100 ML 220 MG IVPB (10:51)
[2024-10-02 11:43] LABS: Glucose Point of Care 257 mg/dl (65-105)
--- NOTE | 2024-10-02 13:45 | P.PNNP_ITS ---
Progress Note: A&P Assessment and Plan (1) End stage renal disease: Code(s): N18.6 - End stage renal disease Status: Resolved Assessment and Plan: * continue nightly CCPD while hospitalized * follow electrolytes, volume status, and clearance * adjust PD presciption as needed (2) Sepsis: Code(s): A41.9 - Sepsis, unspecified organism Status: Acute Assessment and Plan: * suspected on admission with N/V/D + abdominal tenderness + altered mental status * UA not indicative of infection (and hence no urine culture done) * however, has a history of ESBL E.coli UTIs * noted perinephric stranding (around transplant kidney) on admission CT * no evidence of other acute infection by imaging * PD fluid and blood cultures noted (see #3) * follow trend of hemodynamics (3) Bacteremia: Code(s): R78.81 - Bacteremia Status: Resolved Assessment and Plan: * blood cultures noted: * on 09/24/24 - Staphylococcus aureus * on 09/26/23 - Staphylococcus aureus * on 09/28/23 - no growth to date * source not clear: * peritonitis (?) -- PD fluid analysis noted (high neutrophils present) - H OWEVER, PD fluid sample collected AFTER antibiotics given (so this could reflect partially treated peritonitis); PD fluid cultures negative * transplant kidney (?) -- considerable fat stranding surrounding the left lower quadrant transplant kidney * mediport (?) * other (?) * on antibiotics (4) NSTEMI (non-ST elevated myocardial infarction): Code(s): I21.4 - Non-ST elevation (NSTEMI) myocardial infarction Status: Acute Assessment and Plan: * suspected based on elevated troponins * however, chest pain symptoms are somewhat atypical * s/p heparin gtt * Echo noted with EF 30 - 35% * Cardiology following * cardiac catheterization results noted - no intervention done or significant CAD present * however, EF better at 50% * continue supportive therapy (5) Nausea, vomiting, and diarrhea: Code(s): R11.2 - Nausea with vomiting, unspecified; R19.7 - Diarrhea, unspecified Status: Acute Assessment and Plan: * noted by history * possibly secondary to #2 * symptoms better at this time * PRN IV antiemetics * follow symptoms (6) Hypertension: Qualifiers: Hypertension type: primary hypertension Qualified Code(s): I10 - Essential (primary) hypertension Code(s): I10 - Essential (primary) hypertension Status: Chronic Assessment and Plan: * reasonable control at this time * follow trend of hemodynamics (7) Chronic anemia: Code(s): D64.9 - Anemia, unspecified Status: Chronic Assessment and Plan: * due to ESRD * on Retacrit while hospitalized * however, acute illness/infection may limit effectiveness of DANE * follow-up on anemia studies * however, given #3, would hold IV venofer use * follow trend of H/H (8) Type 2 diabetes mellitus: Qualifiers: Chronic kidney disease stage: on chronic dialysis Diabetes mellitus complication detail: with chronic kidney disease Diabetes mellitus complication status: with kidney complications Diabetes mellitus longterm insulin use: w [facility] transportation intermediary use Qualified Code(s): E11.22 - Type 2 diabetes mellitus with diabetic chronic kidney disease; N18.6 - End stage renal disease; Z99.2 - Dependence on renal dialysis Code(s): E11.9 - Type 2 diabetes mellitus without complications Status: Chronic Assessment and Plan: * follow accuchecks * glycemic control per hospitalist Will continue to follow. L Subjective Date/time seen: 10/02/24 13:45 Interval history: Follow-up for end stage renal disease on peritoneal dialysis. Tolerated peritoneal dialysis treatment overnight without any issues (CCPD supervised and seen at 1:35PM); no other problems/events overnight or earlier this morning voiced at the time of my visit; feels reasonably well in general; no complaints to report. Exam 2 Narrative: General: WD/WN female in NAD Heart: normal S1 and S2; no rub Lungs: clear anteriorly; decreased at bases Abdomen: soft, nontender, nondistended, positive bowel sounds Extremities: no cyanosis or clubbing; no edema Skin: warm and intact Objective Data Vital Signs Vital Signs: Vital Signs Temp Pulse Resp BP Pulse Ox O2 Del Method FiO2 10/02/24 08:00 97.2 F L 80 20 130/60 100 10/02/24 08:00 Room Air 10/02/24 06:00 97.6 F 101 H 18 154/88 H 96 10/01/24 21:37 97.2 F L 95 18 149/89 H 97 10/01/24 21:30 95 18 97 Room Air 21 Intake/Output Intake/Output: Intake & Output 09/29/24 09/30/24 10/01/24 10/02/24 23:59 23:59 23:59 23:59 Intake Total 1580 1450 1476 1000 Output Total 0391 089 5798 1635 Balance 122 627 -2 -524 Meds/Results Medications: Active Medications Generic Name Dose Route Start Last Admin Trade Name Freq PRN Reason Stop Dose Admin Acetaminophen 650 mg 09/25/24 18:05 09/30/24 13:48 Acetaminophen 325 Mg Tablet PO 650 mg Q6H PRN Administration Mild Pain (1-3) or Fever Albuterol 2 puff 09/25/24 16:39 Albuterol Sulfate (*Sp) Aerosol 1 Puff INHALATION QID PRN shortness of breath or wheezing Allopurinol 150 mg 09/26/24 09:00 10/01/24 08:44 Allopurinol 150 Mg Tablet PO 150 mg DAILY JENNIFER Administration Calcitriol 0.25 mcg 09/26/24 09:00 10/01/24 08:44 Calcitriol 0.25 Mcg Capsule PO 0.25 mcg DAILY JENNIFER Administration Cinacalcet 60 mg 09/26/24 21:00 09/30/24 20:36 Cinacalcet 30 Mg Tablet PO 60 mg HS JENNIFER Administration Cyclobenzaprine HCl 5 mg 09/26/24 13:07 09/30/24 20:48 Cyclobenzaprine Hcl 5 Mg Tablet PO 5 mg TID PRN Administration muscle spasm Dextrose 12.5 gm 09/25/24 09:22 Dextrose 50% 25 Gm/50 Ml Syringe IV PUSH PRN PRN Hypoglycemia Protocol Diltiazem HCl 120 mg 09/29/24 10:50 10/01/24 08:45 Diltiazem Hcl Cd 120 Mg Cap.24hr PO 120 mg QAM JENNIFER Administration Doxazosin Mesylate 4 mg 09/26/24 21:00 09/30/24 20:35 Doxazosin Mesylate 4 Mg Tablet PO 4 mg HS JENNIFER Administration Epoetin Orestes-epbx 10,000 units 09/27/24 09:00 09/30/24 09:07 Epoetin Orestes-Epbx 10,000 Units/Ml Vial SUB-Q 10,000 units MOWEFR@09 JENNIFER Administration Gentamicin Sulfate 1 applic 09/25/24 21:00 09/30/24 19:32 Gentamicin Sulfate 0.1% Cr 15 Gm Tube TOPICAL 1 applic QHS JENNIFER Administration Glucagon 1 mg 09/25/24 09:22 Glucagon For Inj 1 Mg Vial IM PRN PRN Hypoglycemia Protocol Glucose 15 gm 09/25/24 09:22 Glucose Oral Gel 15 Gm Of Glucse In 37.5 Gm Tube PO PRN PRN Hypoglycemia Protocol Heparin Sodium (Beef Lung) 50 units 10/01/24 09:00 10/01/24 08:43 Heparin Flush 50 Units/5 Ml Syringe IV PUSH 50 units QAM JENNIFER Administration Heparin Sodium (Beef Lung) 50 units 09/30/24 11:14 09/30/24 12:54 Heparin Flush 50 Units/5 Ml Syringe IV PUSH 50 units PRN PRN Administration after intermittent infusion Heparin Sodium (Beef Lung) 50 units 09/30/24 11:14 10/01/24 11:26 Heparin Flush 50 Units/5 Ml Syringe IV PUSH 50 units PRN PRN Administration after blood draws Heparin Sodium (Porcine) 5,000 units 09/25/24 09:25 10/01/24 08:45 Heparin Sodium 5,000 Units/Ml Vial SUB-Q 5,000 units Q12HR JENNIFER Administration Heparin Sodium (Porcine) 500 units 09/30/24 11:14 Heparin Sodium Lock Flush 500 Units/5 Ml Syringe IV PUSH PRN PRN see comments below Dextrose 1,000 mls @ 100 mls/hr 09/25/24 09:22 Dextrose 5% 1,000 Ml IVPB PRN PRN Hypoglycemia Protocol Cefazolin Sodium 1 gm in 50 mls @ 100 mls/hr 09/27/24 13:00 10/01/24 08:44 Ancef 1 Gm/Ns 50 Ml IVPB 100 mls/hr DAILY JENNIFER Administration Insulin Aspart 2 - 5 units 09/26/24 06:30 10/01/24 13:14 Insulin Aspart (*Bkc) 100 Units/Ml SUB-Q 3 units ACHS JENNIFER Administration Protocol Insulin Glargine 12 units 09/25/24 21:00 09/30/24 20:38 Insulin Glargine (*Bkc) 100 Units/Ml 0.15 units/kg (12 units) 12 units SUB-Q Administration HS JENNIFER Metoprolol Succinate 50 mg 09/28/24 11:05 10/01/24 08:43 Metoprolol Succinate Ext Rel 50 Mg Tabcr PO 50 mg QAM JENNIFER Administration Pantoprazole Sodium 40 mg 09/25/24 21:00 10/01/24 08:45 Pantoprazole 40 Mg Tablet PO 40 mg Q12HR JENNIFER Administration Rosuvastatin Calcium 20 mg 09/26/24 09:00 10/01/24 08:45 Rosuvastatin 20 Mg Tablet PO 20 mg DAILY JENNIFER Administration Sevelamer Carbonate 1,600 mg 09/27/24 08:00 10/01/24 11:26 Sevelamer Carbonate 800 Mg Tablet PO 1,600 mg TIDWM JENNIFER Administration Sodium Chloride 10 ml 09/30/24 14:00 10/01/24 14:00 Central Line Flush IV PUSH 10 ml Q8HR JENNIFER Administration Temazepam 7.5 mg 09/26/24 21:00 09/30/24 20:36 Temazepam (*Crx) 7.5 Mg Capsule PO 10/26/24 20:59 7.5 mg HS JENNIFER Administration Trazodone HCl 50 mg 09/26/24 21:00 09/30/24 20:36 Trazodone Hcl 50 Mg Tablet PO 50 mg HS JENNIFER Administration Vitamin B Complex/Folic Acid 1 cap 09/26/24 09:00 10/01/24 08:45 Vitamin B Cmplx/Vit C/Folic Ac 1 Capsule PO 1 cap QAM JENNIFER Administration Vitamin D 4,000 units 09/26/24 09:00 10/01/24 08:45 Cholecalciferol 1,000 Units Tablet PO 4,000 units DAILY JENNIFER Administration Radiology Results: ITS Impressions Head CT 09/24/24 20:52 IMPRESSION: No acute intracranial process. Chest/Abdomen/Pelvis CT 09/24/24 20:56 IMPRESSION: No acute process detected in the chest. Considerable fat stranding surrounding the left lower quadrant transplant kidney, as can be seen with infection. Chest X-Ray 09/26/24 05:25 Impression: Minimal central pulmonary venous congestive change. Stable Mediport. Labs Labs: Laboratory Tests 10/02/24 05:32 10/02/24 05:32 Calcium 9.4 Magnesium 1.6 Total Bilirubin 0.4 AST 35 ALT 15 Alkaline Phosphatase 188 H Total Protein 6.0 L Albumin 2.7 L Microbiology 09/26/24 14:51 Blood Blood Culture - Final Staphylococcus aureus 09/26/24 07:25 Peritoneal Fluid Anaerobic Culture - Final 09/26/24 07:25 Peritoneal Fluid Aerobic Culture - Final
--- NOTE | 2024-10-02 14:33 | P.DS_ITS ---
DS: Admitting Diagnosis Discharge Date 10/02/24 Admitting Diagnosis nausea, emesis, and diarrhea with altered mental status DS: Discharge Diagnosis Discharge Diagnosis (1) Bacteremia due to Gram-negative bacteria: Code(s): R78.81 - Bacteremia Status: Acute DS: Summary Hospital Course Hospital Course: 64-year-old the female with a history of kidney transplant 2018 and failure of transplant 2021 is currently on peritoneal dialysis. She was in her usual state of health until September 23 in the. She developed nausea and emesis. She did complain of mild abdominal pain as well. She was not febrile. She has not eaten anything or had much to drink since then. The following day on September 24 she was too weak to get out of bed. She did not do her peritoneal dialysis on September 23 or September 24. On September 24 she was also confused and had diarrhea once in the bed. Because of this her called 911 and she was transported to [facility] ED. She received a 30 ml/kg fluid bolus as well as Vancomycin and Meropenem due to suspected sepsis. Further evaluation revealed leukocytosis with white count 78526, hemoglobin 9.9 platelet count 81388 creatinine 10.4 sodium 130 potassium 4.8 P 145. Blood sugar was 176. Lactic acid 2.3 phosphorus 7.5 calcium 9.0 magnesium 1.5 LFTs unremarkable troponin initially was 0.193 but increased to 0.49 to on follow-up. ABGs with pH 7.446 pCO2 22.3 PO2 70.3 bicarb 15 O2 saturation 95.2% on room air. CT of chest abdomen and pelvis was remarkable for dialysis catheter and mild stranding around the left kidney. Urinalysis showed 4+ protein 2+ glucose 1+ ketones 1+ blood negative nitrates 3-5 red cells surgical 5 white cells or squamous epithelial cells no bacteria and 3-5 urine casts. Urine drug screen was negative ethyl alcohol level is less than 10 and serology for flu a flu B RSV and SARS CoV 2 were all negative. EKG showed anteroseptal Q-waves and sinus tachycardia. Note that grandchildren more ill with nausea and diarrhea the week before Susie. was ill for 2 days with similar symptoms of nausea and diarrhea on September 16 and . She had no other known exposures to ill individuals recently. She does not get out of the house much and is relatively sedentary. Baseline mental status is oriented to person place time and situation. Patient was managed for Sepsis likely from peritonitis secondary to PD Blood culture grew MSSA and patient was started on Cefazolin. repeat blood culture still negative. Patient will continue total of 21 days of Cefazolin at home. PICC line in place Also managed for Elevated troponin for which cardiology was consulted, underwent cardiac cath and showed takotsubo cardiomyopathy; no coronary intervention. Cardiology recommended low dose statin and added Diltiazem 120mg daily for control of Afib. Also managed for Iron deficiency anemia, Isat 5 and patient was given 400mg IV. Hb improved to Hb 7.9 from 7.6 yesterday. She noted that she has a history of Iron deficiency anemia and had iron infusion in July. She will follow up with her GI for possible endoscopy.NO signs of bleeding this admission. Continue other home meds. F/u with PCP in 3-5 days, F/u with cardiology and Nephrology as instructed. Time Spent with Patient Time attestation: Total time spent providing and/or coordinating discharge services: DS: Data Data Completed and Pending Labs on day of discharge: Labs from last 24 hours 10/02/24 10/02/24 10/02/24 11:40 08:36 05:32 WBC 5.9 RBC 2.76 L Hgb 7.9 L Hct 26.0 L MCV 94.2 MCH 28.6 MCHC 30.4 L RDW 19.3 H Plt Count 289 MPV 9.9 Immature Gran % (Auto) 1.0 H Neut % (Auto) 70.7 Lymph % (Auto) 17.4 L Gem % (Auto) 8.0 Eos % (Auto) 2.2 Baso % (Auto) 0.7 Lymph # (Auto) 1.03 Gem # (Auto) 0.5 Eos # (Auto) 0.1 Baso # (Auto) 0.0 Abs Immat Gran (auto) 0.06 H Absolute Neuts (auto) 4.2 Absolute Nucleated RBC 0.000 Nucleated RBC % 0.0 Sodium 132 L Potassium 3.4 Chloride 100 Carbon Dioxide 25 Anion Gap 7 BUN 45 H Creatinine 7.48 H Estim Creat Clear Calc 7 Estimated GFR 5 L Glucose 201 H POC Capillary Glucose 257 H 204 H Calcium 9.4 Magnesium 1.6 Total Bilirubin 0.4 AST 35 ALT 15 Alkaline Phosphatase 188 H Total Protein 6.0 L Albumin 2.7 L 10/01/24 10/01/24 21:26 16:34 WBC RBC Hgb Hct MCV MCH MCHC RDW Plt Count MPV Immature Gran % (Auto) Neut % (Auto) Lymph % (Auto) Gem % (Auto) Eos % (Auto) Baso % (Auto) Lymph # (Auto) Gem # (Auto) Eos # (Auto) Baso # (Auto) Abs Immat Gran (auto) Absolute Neuts (auto) Absolute Nucleated RBC Nucleated RBC % Sodium Potassium Chloride Carbon Dioxide Anion Gap BUN Creatinine Estim Creat Clear Calc Estimated GFR Glucose POC Capillary Glucose 203 H 217 H Calcium Magnesium Total Bilirubin AST ALT Alkaline Phosphatase Total Protein Albumin Preliminary micro results at discharge 09/28/24 11:46 Blood Culture - Preliminary Blood 09/28/24 11:45 Blood Culture - Preliminary Blood Discharge Plan Discharge Attending physician on discharge: To [facility] Consulting providers: Quintin Hope; Dayton Eldridge Discharging Clinician: To Green Anticipated Discharge Date/Time: 10/02/24 14:24 Patient Disposition: Home Health Service Activity: as tolerated Diet: diabetic Discharge Instructions: Care Coordination: [facility] Their phone number is [phone] if you have any questions. RN Please fax discharge instructions to [phone]. IV infusion will be through [facility] #[phone] Patient Instructions: Antibiotic Form, Pain Management in Older Adults (DC) Patient Language: Citizen Of [place] Stand Alone Forms: General Discharge Information Follow-up/Referrals: Dayton Eldridge MD [Physician] - (F/u with cardiology as instructed ) Compa Sam MD [Primary Care Provider] - (F/u with PCP In 3-5 days) Quintin Hope MD [Physician] - (F/u with PCP in 3-5 days ) Discharge Medications: New diltiazem HCl 120 mg Capsule,Extended Release 24hr 120 mg PO QAM 30 Days Qty: 30 1RF Continued bumetanide 2 mg tablet 2 mg PO DAILY Rossana-Carol 0.8 mg tablet 1 tablet PO DAILY albuterol sulfate 90 mcg/actuation HFA aerosol inhaler 2 inh inhalation QID PRN (Reason: shortness of breath or wheezing) Qty: 8.5 0RF temazepam 7.5 mg capsule 7.5 mg PO HS lansoprazole 30 mg capsule,delayed release(DR/EC) 30 mg PO BID nifedipine 60 mg tablet extended release 60 mg PO BID rosuvastatin 20 mg tablet 20 mg PO DAILY Januvia 25 mg tablet 25 mg PO DAILY sevelamer carbonate 800 mg tablet 1,600 mg PO TID allopurinol 100 mg tablet 150 mg PO DAILY calcitriol 0.25 mcg capsule 0.25 mcg PO DAILY cinacalcet 30 mg tablet 60 mg PO .nightly trazodone 50 mg Tablet 50 mg PO HS cyclobenzaprine 5 mg tablet 5 mg PO TID PRN (Reason: muscle spasm) aspirin 81 mg tablet,delayed release (DR/EC) 81 mg PO DAILY nifedipine 30 mg Tablet Extended Release 60 mg PO BID cholecalciferol (vitamin D3) 100 mcg (4,000 unit) Tablet 100 mcg PO DAILY metoprolol succinate 50 mg tablet extended release 24 hr 50 mg PO BID doxazosin 1 mg tablet 4 mg PO DAILY Xphozah 30 mg tablet 30 mg PO BID Rx Instructions: administer immediately before first and last meals of day Date of admission: 09/25/24 10:42 Primary Care Provider: Compa Sam Admitting Provider: Jerald Marinelli Attending physician on admission: Jerald Marinelli Condition: Serious
--- NOTE | 2024-10-04 14:44 | PCCDE ---
10/04/24 Courtesy follow up call message left including phone number. TRAVIS
== END 2024-10-02 15:15 | disposition home or self-care (01) | DRG 867 ==
LOC: ANHIMU 09-27 13:58 → ANH3MEDSUR 10-01 01:42 → ANHED 10-03 10:35 → ANH2MED 10-03 10:38
PROVIDERS: General Practice; Internal Medicine; Internal Medicine Interventional Cardiology; Internal Medicine Nephrology; Nurse Practitioner; Admitting Provider Internal Medicine; Emergency Provider Emergency Medicine; PCP Family Medicine; Visit Provider Internal Medicine
PROC: 4A023N7 Measurement of Cardiac Sampling and Pressure, Left Heart, Percutaneous Approach (ICD-10-PCS; CPT 93452; principal; 2024-09-27 09:00)
PROC: 4A023N7 Measurement of Cardiac Sampling and Pressure, Left Heart, Percutaneous Approach (ICD-10-PCS; 2024-09-27 09:00)
DX: T80.29XA Infection following other infusion, transfusion and therapeutic injection, initial encounter (principal); A41.01 Sepsis due to Methicillin susceptible Staphylococcus aureus; K65.2 Spontaneous bacterial peritonitis; G93.41 Metabolic encephalopathy; N18.6 End stage renal disease; I21.4 Non-ST elevation (NSTEMI) myocardial infarction; I12.0 Hypertensive chronic kidney disease with stage 5 chronic kidney disease or end stage renal disease; T86.12 Kidney transplant failure; I42.8 Other cardiomyopathies; D69.6 Thrombocytopenia, unspecified; D64.9 Anemia, unspecified; E78.5 Hyperlipidemia, unspecified; E11.22 Type 2 diabetes mellitus with diabetic chronic kidney disease; K21.9 Gastro-esophageal reflux disease without esophagitis; M19.90 Unspecified osteoarthritis, unspecified site; Z20.822 Contact with and (suspected) exposure to COVID-19; Z90.5 Acquired absence of kidney; Z79.82 Long term (current) use of aspirin; Z99.2 Dependence on renal dialysis
CPT/HCPCS: 36415; 36600; 70450; 71045; 71250; 74176; 80053; 80202; 80307; 81001; 82077; 82565; 82805; 82948; 83036; 83540; 83550; 83605; 83690; 83735; 83880; 84100; 84443; 84484; 85018; 85025; 85027; 85055; 85610; 85730; 86706; 87040; 87070; 87075; 87181; 87205; 87340; 87637; 87641; 89051; 90945; 93005; 93306; 93458; 96361; 96365; 96367; 99285; A9270; C1760; C1769; C1887; C1894; C8929; G0269; J0690; J0692; J1642; J1644; J1756; J1815; J1836; J2003; J2060; J2185; J2250; J2305; J3370; J7030; J7040; Q5105

== ENCOUNTER 2025-01-20 02:10 | Day surgery (SDC) | payer MEDICARE, BC, SELFPAY ==
[2025-01-09 13:35] VITALS: BMI 29.5
--- OUTSIDE RECORDS SUMMARY | 2025-01-20 02:13 | XMS_ITS | Encounter Summary ---
Author Organization [facility] Address [address] [place] [address] Care Team Providers Care Lead Assistant Manager Name Role Phone Compa Sam MD Unavailable [phone] Compa Sam MD Primary Care Provider [phone] Quintin Hope MD Unavailable [phone] Encounter Details Date Type Department Care Team (Late st Contact Info) Description 11/05/2024 Lab Requisition [facility] [address] [place] [id number] Quintin Snow MD [facility] [place] [address] Social History Tobacco Use Types Packs/Day Years Used Date Smoking Tobacco: Never Smokeless Tobacco: Never Alcohol Use Standard Drinks/Week Comments Not Currently 0 (1 standard drink = 0.6 oz pur e alcohol) OCCASIONAL AUDIT-C Answer Date Recorded Q1: How often do you have a drink containing alc ohol? Monthly or less 09/27/2023 Q2: How many drinks containi ng alcohol do you have on a typical day when you are drinking? 1 or 2 09/27/2023 Q3: How often do you have si x or more drinks on one occasion? Never 09/27/2023 PHQ-2 Answer Date Recorded PHQ2 TOTAL SCORE 0 12/14/2021 Hunger Vital Sign Answer Date Recorded Within the past 12 months, y ou worried that your food would run out before you got the money to buy more. Never true 06/08/20 22 Within the past 12 months, t he food you bought just didn't last and you didn't have money to get more. Never true 06/08/2022 Comments No Sex and Gender Information Value Date Recorded Sex Assigned at Not on file Legal Sex Female 8:35 AM [employer] Gender Identity Not on file Sexual Orientation Not on file documented as of this encounter Functional Status * Is person deaf or have serious hearing difficulty? Answer Date of Assessment Author No 11/15/2023 2:15 PM Sonia Horton RN * Is person blind or have serious difficulty seeing? Answer Date of Assessment Author No 11/15/2023 2:15 PM Sonia Horton RN * Does person have serious difficulty walking/climbing stairs? Answer Date of Assessment Author No 11/15/2023 2:15 PM Sonia Horton RN * Does person have difficulty dressing/bathing? Answer Date of Assessment Author No 11/15/2023 2:15 PM Sonia Horton RN * Does person have difficulty doing errands alone? Answer Date of Assessment Author No 11/15/2023 2:15 PM Sonia Horton RN documented as of this encounter Mental Status * Does person have difficulty concentrating/remembering/making decisions? Answer Entry Date Author No 11/15/2023 2:15 PM Sonia Horton RN documented in this encounter Plan of Treatment Upcoming Encounters Date Type Department Care Team (Late st Contact Info) Description 01/27/2025 1:00 PM CDT Clinical Support [facility]TE [facility] [address]L [address] [facility] [place], [place] Level [phone] documented as of this encounter Goals Goal Patient Goal Type Associated Problems Recent Progress Patient-Stated? Author Blood Pressure < 140/90 Blood Pressure 154/100(01/16 1:23 PM CDT) No Lilian Sky, car hiker Management General On track( 024 12:38 PM CDT) No Tabitha Vizcarra RN Note: Expected end date: ONGOING Interventions: Take all medications as prescribed Let your doctor know right away about any changes in your medications Make sure to request a refill of your medication at least one week prior to your last dose Medication Management General Tabitha Piedra, RN Note: Expected end date: ongoing Interventions: Take all medications as prescribed Let your doctor know right away about any changes in your medications Make sure to request a refill of your medication at least one week prior to your last dose documented as of this encounter Procedures Procedure Name Priority Date/Time Associated Diagnosis Comments HOLD HLA SPECIMEN Routine 10/31/2024 2:5 4 PM [employer] documented in this encounter Results * HOLD HLA SPECIMEN (10/31/2024 2:54 PM [employer]) Hold HLA Specimen 11/05/2024 4:01 PM [employer] [facility] ([facility]) Comment:The Hold HLA specime n has been received into the lab and will be held for 5 years at 4 degrees. Blood BLOOD SPECIMEN / Unknown 10/31/2024 2:54 PM [employer] 11/05/2024 2:54 PM [employer] Quintin Snow MD LAB - BLOOD BANK ORDERABLES F inal Result [facility] ([facility]) [address] [place] [address], [facility] documented in this encounter Visit Diagnoses Not on filedocumented in this encounter Care Teams Lead Assistant Manager Relationship Specialty Start Date End Date Compa Sam MD [address] [place] [address] PCP - General 12/28/22 Compa Sam MD [address] [place] [address] Family Medicine 09/29/22 Qiuntin Hope MD [address] [facility] [id number] Nephrology 04/10/24 documented as of this encounter
--- OUTSIDE RECORDS SUMMARY | 2025-01-20 02:13 | XMS_ITS | Encounter Summary ---
Author Organization [facility] Health Address [address] [place] [address] Care Team Providers Care Data Collection Associate Name Role Phone Compa Sam MD Unavailable [phone] Compa Sma MD Primary Care Provider [phone] Quintin Hope MD Unavailable [phone] Encounter Details Date Type Department Care Team (Late st Contact Info) Description 10/09/2023 Lab Requisition [facility] MAIN LAB [address] [place] [phone] Quintin Snow MD 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 Answer Date of Assessment Author No 09/13/2023 10:49 AM Sheridan Horton RN * Is person blind or have serious difficulty seeing? Answer Date of Assessment Author No 09/13/2023 10:49 AM Sheridan Horton RN * Does person have serious difficulty walking/climbing stairs? Answer Date of Assessment Author No 09/13/2023 10:49 AM Sheridan Horton RN * Does person have difficulty dressing/bathing? Answer Date of Assessment Author No 09/13/2023 10:49 AM Sheridan Horton RN * Does person have difficulty doing errands alone? Answer Date of Assessment Author No 09/13/2023 10:49 AM Sheridan Horton RN documented as of this encounter Mental Status * Does person have difficulty concentrating/remembering/making decisions? Answer Entry Date Author No 09/13/2023 10:49 AM Sheridan Horton RN documented in this encounter Plan of Treatment Upcoming Encounters Date Type Department Care Team (Late st Contact Info) Description 01/27/2025 1:00 PM CDT Clinical Support [facility] [address]L [address] [place] [address] documented as of this encounter Goals Goal Patient Goal Type Associated Problems Recent Progress Patient-Stated? Author Medication Management General On track( 024 12:38 PM CDT) No Tabitha Vizcarra, RN Note: Expected end date: ONGOING Interventions: Take all medications as prescribed Let your doctor know right away about any changes in your medications Make sure to request a refill of your medication at least one week prior to your last dose Medication Management General No Tabitha Vizcarra, RN Note: Expected end date: ongoing Interventions: Take all medications as prescribed Let your doctor know right away about any changes in your medications Make sure to request a refill of your medication at least one week prior to your last dose documented as of this encounter Procedures Procedure Name Priority Date/Time Associated Diagnosis Comments HOLD HLA SPECIMEN Routine 09/29/2023 12: 00 PM CNC MACHINE PROGRAMMER documented in this encounter Results * HOLD HLA SPECIMEN (09/29/2023 12:00 PM CNC MACHINE PROGRAMMER) Hold HLA Specimen 10/09/2023 4:01 PM CNC MACHINE PROGRAMMER [facility] Comment:The Hold HLA specime n has been received into the lab and will be held for 5 years at 4 degrees. Blood BLOOD SPECIMEN / Unknown 09/29/2023 12:00 PM CNC MACHINE PROGRAMMER 10/09/2023 2:53 PM CNC MACHINE PROGRAMMER Quintin Snow MD LAB - BLOOD BANK ORDERABLES F inal Result [facility] ([facility]) [address] [place] [address], [facility] documented in this encounter Visit Diagnoses Not on filedocumented in this encounter Care Teams Data Collection Associate Relationship Specialty Start Date End Date Compa Sam MD [address] [place] [address] PCP - General 12/28/22 Compa Sam MD [address] [place] [address] Family Medicine 09/29/22 Quintin Hope MD [address] [facility] [address] [place] [address] Nephrology 04/10/24 documented as of this encounter
--- OUTSIDE RECORDS SUMMARY | 2025-01-20 02:13 | XMS_ITS | Encounter Summary ---
Author Organization [facility] Address [address] [place] [address] Care Team Providers Care Service Station Console Operator Name Role Phone Compa Sam MD Unavailable [phone] Compa Sam MD Primary Care Provider [phone] Quintin Hope MD Unavailable [phone] Reason for Visit * Reason Onset Date Comments MEDICATION REFILL 12/22/2023 Encounter Details Date Type Department Care Team (Late st Contact Info) Description 12/22/2023 Refill [facility] - Nephrology [address] [place] [address], [facility] [place] [address] Reva Edmond MD [address] [place] [address] 3[facility] [place] [address] MEDICATION REFILL Social History Tobacco Use Types Packs/Day Years [...] on file 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 Gender Identity Not on file Sexual Orientation [...] Description 01/27/2025 1:00 PM CDT Clinical Support [facility] JEANETTE [facility] [address] [place] [address] documented as of this encounter Goals Goal [...] last dose documented as of this encounter Visit Diagnoses Not on filedocumented in this encounter Care Teams Service Station Console Operator Relationship Specialty Start Date End Date Compa Sam MD [address] [place] [address] PCP - General 12/28/22 Compa Sam MD [address] [place] [address] Family Medicine 09/29/22 Quintin Hope MD 1034 [facility] [address] [place] [address] Nephrology 04/10/24 documented as of this encounter
--- OUTSIDE RECORDS SUMMARY | 2025-01-20 02:13 | XMS_ITS | Encounter Summary ---
Author Organization [facility] Address [address] [place] [address] Care Team Providers Care Leather Cutter Name Role Phone Debbie Middleton Primary Care Provider [phone] Compa Sam MD Primary Care Provider [phone] Debbie Middleton Primary Care Provider [phone] Compa Sam MD Unavailable [phone] Debbie Middleton Primary Care Provider [phone] Compa Sam MD Primary Care Provider [phone] Quintin Hope MD Unavailable [phone] Encounter Details Date Type Department Care Team (Late st Contact Info) Description 04/27/2022 Lab Requisition [facility] Pathology Lab [address] [place] [address] Mary Alan MD [address] [place], [place] [id number] Chronic kidney disease, stage 3b; Kidney transplant rejection; Acute kidney failure, unspecified Social History Tobacco Use Types Packs/Day Years Used Date Smoking Tobacco: Never Smokeless Tobacco: Never Alcohol Use Standard Drinks/Week Comments Not Currently 0 (1 standard drink = 0.6 oz pur e alcohol) OCCASIONAL AUDIT-C Answer Date Recorded Q1: How often do you have a drink containing alc ohol? 2-4 times a month 04/22/2022 Q2: How many drinks containi ng alcohol do you have on a typical day when you are drinking? 1 or 2 04/22/2022 Q3: How often do you have si x or more drinks on one occasion? 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 No / Unsure 04/21/2022 3:16 PM CDT documented as of this encounter Functional Status * Is person deaf or have serious hearing difficulty? Answer Date of Assessment Author No 04/22/2022 7:59 PM CDT Soraya Ellis RN * Is person blind or have serious difficulty seeing? Answer Date of Assessment Author No 04/22/2022 7:59 PM CDT Soraya Ellis RN * Does person have serious difficulty walking/climbing stairs? Answer Date of Assessment Author No 04/22/2022 7:59 PM NIKITAT Soraya Ellis RN * Does person have difficulty dressing/bathing? Answer Date of Assessment Author No 04/22/2022 7:59 PM CDT Soraya Ellis RN * Does person have difficulty doing errands alone? Answer Date of Assessment Author No 04/22/2022 7:59 PM CDT Soraya Ellis RN documented as of this encounter Mental Status * Does person have difficulty concentrating/remembering/making decisions? Answer Entry Date Author No 04/22/2022 7:59 PM NIKITAT Soraya Ellis RN documented in this encounter Plan of Treatment Upcoming Encounters Date Type Department Care Team (Late st Contact Info) Description 01/27/2025 1:00 PM CDT Clinical Support [facility] JEANETTE [facility] [address]L [address] [facility], [place] [address] documented as of this encounter Goals Goal Patient Goal Type Associated Problems Recent Progress Patient-Stated? Author Medication Management General On track( 024 12:38 PM CDT) No Tbaitha Vizcarra, RN Note: Expected end date: ONGOING Interventions: Take all medications as prescribed Let your doctor know right away about any changes in your medications Make sure to request a refill of your medication at least one week prior to your last dose documented as of this encounter Procedures Procedure Name Priority Date/Time Associated Diagnosis Comments ELECTRON MICROSCOPY (SLU) Routine 04/26/2022 11:56 AM CDT Chronic kidney disease, stage 3b Kidney transplant rejection Acute kidney failure, unspecified documented in this encounter Results * ELECTRON MICROSCOPY (SLU) (04/26/2022 11:56 AM CDT) Case Report Gynecologic Cytology Report Case: [id number] Authorizing Provider: Mary Alan MD Collected: 04/26/2022 11:56 AM Ordering Location: [facility] Care Pathology Lab Received: 04/27/2022 11:44 AM First Screen: Zaid Umaña Specimen: EM RENAL - U, Kidney, Left, Thee pieces approx. 1.5 mm long@ 05/05/2022 3:24 PM CDT [facility] PATHOLOGY LAB Electron Microscopy Technical Summary # of Block(s) cut: 5 # of Glomeruli found: 1 # of Glomeruli photographed: 1 05/05/2022 3:24 PM CDT [facility] PATHOLOGY LAB Embedded Images - EM 05/05/2022 3:24 PM CDT [facility] PATHOLOGY LAB Pathology/Cytolo gy (Kidney, Left) 04/26/2022 11:56 AM CDT 04/27/2022 11:44 AM CDT Mary Alan MD LAB - PATHOLOGY/CYTOLOGY ORDER JOSEPH Final Result [facility] PATHOLOGY LAB [address] [phone] documented in this encounter Visit Diagnoses Diagnosis Chronic kidney disease, stage 3b (HCC) 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 Acute kidney failure, unspecified documented in this encounter Additional Health Concerns Infection Onset Date Last Indicated Resolved Time COVID-19 Under Investigation 07/15/2022 07/15/2022 07/26/2022 4:33 AM CDT documented as of this encounter Care Teams Leather Cutter Relationship Specialty Start Date End Date Debbie Middleton APRN-CNP PCP - General 10/06/21 08/29/22 Compa Sam MD [address] [phone] PCP - General Family Medicine 08/30/22 09/25/22 Debbie Middleton APRN-CNP PCP - General 09/26/22 09/28/22 Debbie Middleton APRN-CNP PCP - General 10/11/22 12/27/22 Compa Sam MD [address] [facility] [address] [address] PCP - General 12/28/22 Compa Sam MD [address] [address] Family Medicine 09/29/22 Quintin Hope MD 1034 [facility] [address] [place] [address] Nephrology 04/10/24 documented as of this encounter
--- OUTSIDE RECORDS SUMMARY | 2025-01-20 02:13 | XMS_ITS | Encounter Summary ---
Author Organization [facility] Health Address [address] [facility] [place] [address] Care Team Providers Care Pot Firer Name Role Phone Compa Sam MD Unavailable [phone] Compa Sam MD Primary Care Provider [phone] Quintin Hope MD Unavailable [phone] Reason for Visit * Reason Comments Refill Request Encounter Details Date Type Department Care Team (Late st Contact Info) Description 05/25/2023 Refill [facility] - Nephrology [address] [place] [address], [place] [address] Reva Edmond MD [address] [place] [address] 3[facility] [place], [place] [id number] Refill Request Social History Tobacco Use Types Packs/Day Years Used Date Smoking Tobacco: Never Smokeless Tobacco: Never Alcohol Use Standard Drinks/Week Comments Not Currently 0 (1 standard drink = 0.6 oz pur e alcohol) OCCASIONAL AUDIT-C Answer Date Recorded Q1: How often do you have a drink containing alcohol? Never 06/07/2022 Q2: How many drinks containi ng alcohol do you have on a typical day when you are drinking? Patient does not drink Q3: How often do you have si x or more drinks on one occasion? 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 Answer Date of Assessment Author No 02/14/2023 9:24 AM Tristan Wynn RN * Is person blind or have serious difficulty seeing? Answer Date of Assessment Author No 02/14/2023 9:24 AM Tristan Wynn RN * Does person have serious difficulty walking/climbing stairs? Answer Date of Assessment Author No 02/14/2023 9:24 AM Tristan Wynn RN * Does person have difficulty dressing/bathing? Answer Date of Assessment Author No 02/14/2023 9:24 AM Tristan Wynn RN * Does person have difficulty doing errands alone? Answer Date of Assessment Author No 02/14/2023 9:24 AM Tristan Wynn RN documented as of this encounter Mental Status * Does person have difficulty concentrating/remembering/making decisions? Answer Entry Date Author No 02/14/2023 9:24 AM Tristan Wynn RN documented in this encounter Plan of Treatment Upcoming Encounters Date Type Department Care Team (Late st Contact Info) Description 01/27/2025 1:00 PM CDT Clinical Support [facility] JEANETTE [facility] [address]L [address] [place] [phone] documented as of this encounter Goals Goal [...] on filedocumented in this encounter Care Teams Pot Firer Relationship Specialty Start Date End Date Compa Sam MD [address] [place] [address] PCP - General 12/28/22 Compa Sam MD [address] [place] [address] Family Medicine 09/29/22 Quintin Hope MD 1034 [facility] [address] [place] [address] Nephrology 04/10/24 documented as of this encounter
--- OUTSIDE RECORDS SUMMARY | 2025-01-20 02:13 | XMS_ITS | Encounter Summary ---
Author Organization [facility] Address [address] [facility] [place] [address] Care Team Providers Care Barrel Tester Name Role Phone Debbie Middleton Primary Care Provider + [phone] Compa Sam MD Primary Care Provider [phone] Debbie Middleton Primary Care Provider [phone] Compa Sam MD Unavailable [phone] Debbie Middleton Primary Care Provider [phone] Compa Sam MD Primary Care Provider [phone] Quintin Hope MD Unavailable [phone] Reason for Visit * Reason Onset Date Comments MEDICATION REFILL 05/26/2022 Encounter Details Date Type Department Care Team (Late st Contact Info) Description 05/26/2022 Refill [facility] - Nephrology [address] [place] [address], [place] [phone] Abhi Jackson MD [address] [place] [address] [place] [address] MEDICATION REFILL Social History Tobacco Use Types [...] on file 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 Answer Date of Assessment Author No 04/22/2022 7:59 PM Soraya Dangelo RN * Is person blind or have serious difficulty seeing? Answer Date of Assessment Author No 04/22/2022 7:59 PM Soraya Dangelo RN * Does person have serious difficulty walking/climbing stairs? Answer Date of Assessment Author No 04/22/2022 7:59 PM Soraya Dangelo RN * Does person have difficulty dressing/bathing? Answer Date of Assessment Author No 04/22/2022 7:59 PM Soraya Dangelo RN * Does person have difficulty doing errands alone? Answer Date of Assessment Author No 04/22/2022 7:59 PM Soraya Dangelo RN documented as of this encounter Mental Status * Does person have difficulty concentrating/remembering/making decisions? Answer Entry Date Author No 04/22/2022 7:59 PM Soraya Dangelo RN documented in this encounter Plan of Treatment Upcoming Encounters Date Type Department Care Team (Late st Contact Info) Description 01/27/2025 1:00 PM CDT Clinical Support [facility] JEANETTE [facility] [address]L [address] [place] [phone] documented as of this encounter Goals Goal [...] Diagnoses Not on filedocumented in this encounter Additional Health Concerns Infection Onset Date Last Indicated Resolved Time COVID-19 Under Investigation 07/15/2022 07/15/2022 07/26/2022 4:33 AM CDT documented as of this encounter Care Teams Barrel Tester Relationship Specialty Start Date End Date Debbie Middleton APRN-CNP PCP - General 10/06/21 08/29/22 Compa Sam MD [address] [address] PCP - General Family Medicine 08/30/22 09/25/22 Debbie Middleton APRN-CNP PCP - General 09/26/22 09/28/22 Debbie Middleton APRN-CNP PCP - General 10/11/22 12/27/22 Compa Sam MD [address] [facility] [address] [place] [address] PCP - General 12/28/22 Compa Sam MD [address] [facility] [address] [place] [address] Family Medicine 09/29/22 Quintin Hope MD [address] [facility], [address] [place] [address] Nephrology 04/10/24 documented as of this encounter
--- OUTSIDE RECORDS SUMMARY | 2025-01-20 02:13 | XMS_ITS | Encounter Summary ---
Author Organization [facility] Health Address [address] [facility] [place] [address] Care Team Providers Care Flap Maker Name Role Phone Compa Sam MD Unavailable [phone] Compa Sam MD Primary Care Provider [phone] Quintin Hope MD Unavailable [phone] Encounter Details Date Type Department Care Team (Late st Contact Info) Description 09/13/[address] [facility] MAIN LAB [address] [place] [phone] Quintin Snow MD [facility]1 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 TX[facility] JEANETTE [facility] [address]L [address] [facility], [place] [address] documented as of this encounter Goals Goal Patient Goal Type Associated Problems Recent Progress Patient-Stated? Author Blood Pressure < 140/90 Blood Pressure 154/100(01/16 1:23 PM CDT) No Lilian Sky, servicer travel trailers Management General On track( 024 12:38 PM [...] Associated Diagnosis Comments HOLD HLA SPECIMEN Routine 08/27/2024 1:0 4 PM ACLS SPECIALIST documented in this encounter Results * HOLD HLA SPECIMEN (08/27/2024 1:04 PM ACLS SPECIALIST) Hold HLA Specimen 09/13/2024 2:32 PM ACLS SPECIALIST [facility] Comment:The Hold HLA specime n has been received into the lab and will be held for 5 years at 4 degrees. Blood BLOOD SPECIMEN / Unknown 08/27/2024 1:04 PM ACLS SPECIALIST 09/13/2024 1:04 PM ACLS SPECIALIST Quintin Snow MD LAB - BLOOD BANK ORDERABLES F inal Result [facility] [address] [place] [address], [facility] documented in this encounter Visit Diagnoses Not on filedocumented in this encounter Care Teams Flap Maker Relationship Specialty Start Date End Date Compa Sam MD [address] [place] [address] PCP - General 12/28/22 Compa Sam MD [address] [place] [address] Family Medicine 09/29/22 Quintin Hope MD [address] [facility] [address] [place] [address] Nephrology 04/10/24 documented as of this encounter
--- OUTSIDE RECORDS SUMMARY | 2025-01-20 02:13 | XMS_ITS | Encounter Summary ---
Author Organization [facility] Health Address [address] [facility] [place] [address] Care Team Providers Care Time Motion Analyst Name Role Phone Compa Sam MD Unavailable [phone] Compa Sam MD Primary Care Provider [phone] Quintin Hope MD Unavailable [phone] Encounter Details Date Type Department Care Team (Late st Contact Info) Description 10/18/2024 Lab Requisition [facility] MAIN LAB [address] [place] [phone] Quintin Snow MD 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 Author Blood Pressure < 140/90 Blood Pressure 154/100(01/16 1:23 PM CDT) No Lilian Sky, concert promoter Management General On track( 024 12:38 PM [...] Associated Diagnosis Comments HOLD HLA SPECIMEN Routine 10/10/2024 1:3 8 PM ARTILLERY METEOROLOGICAL MAN documented in this encounter Results * HOLD HLA SPECIMEN (10/10/2024 1:38 PM ARTILLERY METEOROLOGICAL MAN) Hold HLA Specimen 10/18/2024 3:00 PM ARTILLERY METEOROLOGICAL MAN [facility] Comment:The Hold HLA specime n has been received into the lab and will be held for 5 years at 4 degrees. Blood BLOOD SPECIMEN / Unknown 10/10/2024 1:38 PM ARTILLERY METEOROLOGICAL MAN 10/18/2024 1:38 PM ARTILLERY METEOROLOGICAL MAN Quintin Snow MD LAB - BLOOD BANK ORDERABLES F inal Result [facility]) [address] [place] [address], [facility] documented in this encounter Visit Diagnoses Not on filedocumented in this encounter Care Teams Time Motion Analyst Relationship Specialty Start Date End Date Compa Sam MD [address] [place] [address] PCP - General 12/28/22 Compa Sam MD [address] [place] [address] Family Medicine 09/29/22 Quintin Hope MD 10[address] [facility] [address] [place] [address] Nephrology 04/10/24 documented as of this encounter
--- OUTSIDE RECORDS SUMMARY | 2025-01-20 02:13 | XMS_ITS ---
Author Organization [facility] Address [address] [place] [address] Care Team Providers Care Program Administrator Name Role Phone Compa Sam MD Unavailable [phone] Compa Sam MD Primary Care Provider [phone] Quintin Hope MD Unavailable [phone] Transplant Episode Kidney Candidate [facility] ([place], [place]) [facility] Center waitlisted on 05/10/2023 Marked as Inactive on 10/10/2024 Reason: Temporarily too Sick Kidney CoordinatorLilian Sky RN Phone: N/A Fax: N/A Email: N/A Scores Score Value Updated Exceptions/Reas ons CPRA Not available EPTS (Calc) 89 01/20/2025 [employer] [place] [employer] [place] Organ Diagnosis Organ Primary Contributory Kidney Diabetes Mellitus - Type II [place] t Failure Care Team Name Role Phone Fax Email Lilian Sky RN Kidney Coordinator N/A N/A N/A Reva Edmond MD Transplant Undercover Agent [phone] N/A Quintin Hope MD Referring Physician [phone] N/A Joyce Dobson Nutrition Teacher N/A N/A N/A Events Pre-Transplant Referred: 06/14/2022 Evaluation began: 07/12/2022 Committee: 04/13/2023 UNOS qualified: 06/16/2022 Center waitlisted: 05/10/2023 Appointments (12/20/2024 - 02/19/2025) When With Visit Type Description 12/31/2024 Transplant Sl Education Transplant No Show Dialysis History Dialysis History Start End Type Comments Center 12/26/2023 Peritoneal [facility] [facility] 06/16/2022 12/25/2023 Home-Hemo Soraya,M,W,F; PD tra ining starts 10/25 [facility] Dialysis Center Information Center Phone Fax Address [facility] [phone] [address] [facility] [address]
--- OUTSIDE RECORDS SUMMARY | 2025-01-20 02:13 | XMS_ITS | Clinical Summary ---
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 ADJUSTABLE CLERK Gender Identity Not on file Sexual Orientation Not on file Plan of Treatment Health Maintenance Due Date Last Done Comments Colorectal Cancer Screening Colonoscopy (10 Years) 1959 Hepatitis C 1977 DTaP, Tdap and Td Vaccines ( 1 - Tdap) 1978 Mammogram Screening 1999 Pneumococcal Vaccine: 50+ Ye ars (1 of 1 - PCV) 2009 Zoster Vaccines (1 of 2) 2009 Dexa Scan (General) 02/10/2024 COVID-19 Vaccine ( - 2023-2 5 season) 2024 RSV Immunization or 60+ Years (1 - 1-dose 75+ series) 2034 Meningococcal B Vaccine Aged Out No l onger eligible based on patient's age to complete this topic Meningococcal Vaccine Aged Out No lalo jalil eligible based on patient's age to complete this topic RSV Immunizations Under 20 Months Aged Out No longer eligible based on patient's age to complete this topic Insurance MEDICARE
--- OUTSIDE RECORDS SUMMARY | 2025-01-20 02:13 | XMS_ITS | Encounter Summary ---
Author Organization [facility] Address [address] [place] [address] Care Team Providers Care Senior Strategy Analyst Name Role Phone Compa Sam MD Unavailable [phone] Compa Sam MD Primary Care Provider [phone] Quintin Hope MD Unavailable [phone] Encounter Details Date Type Department Care Team (Late st Contact Info) Description 02/06/2024 Lab Requisition [facility] MAIN LAB [address] [place] [phone] Quintin Snow MD 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 Author Blood Pressure < 140/90 Blood Pressure 154/100(01/16 1:23 PM CDT) No Lilian Sky, right of way manager Management General On track( 024 12:38 PM [...] Associated Diagnosis Comments HOLD HLA SPECIMEN Routine 01/25/2024 1:4 3 PM CDT documented in this encounter Results * HOLD HLA SPECIMEN (01/25/2024 1:43 PM CDT) Hold HLA Specimen 02/06/2024 3:01 PM CDT [facility] Comment:The Hold HLA specime n has been received into the lab and will be held for 5 years at 4 degrees. Blood BLOOD SPECIMEN / Unknown 01/25/2024 1:43 PM CDT 02/06/2024 1:43 PM CDT Quintin Snow MD LAB - BLOOD BANK ORDERABLES F inal Result [facility] ([facility]) [address] [place] [address], [facility] documented in this encounter Visit Diagnoses Not on filedocumented in this encounter Care Teams Senior Strategy Analyst Relationship Specialty Start Date End Date Compa Sam MD [address] [place] [address] PCP - General 12/28/22 Compa Sam MD [address] [place] [address] Family Medicine 09/29/22 Quintin Hope MD [address] [place] [address] Nephrology 04/10/24 documented as of this encounter
--- OUTSIDE RECORDS SUMMARY | 2025-01-20 02:13 | XMS_ITS | Encounter Summary ---
Author Organization [facility] Address [address] [place] [address] Care Team Providers Care Broomcorn Press Feeder Name Role Phone Debbie Middleton Primary Care Provider [phone] Compa Sam MD Primary Care Provider + [phone] Debbie Middleton Primary Care Provider [phone] Compa Sam MD Unavailable [phone] Debbie Middleton Primary Care Provider [phone] Compa Sam MD Primary Care Provider [phone] Quintin Hope MD Unavailable [phone] Encounter Details Date Type Department Care Team (Late st Contact Info) Description 02/02/2022 Lab Requisition [facility] Pathology Lab [address] [place] [address] Reva Edmond MD [address] [facility] [place] [address] 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 Answer Date of Assessment Author No 01/30/2022 10:13 AM Abigail Covarrubias RN * Is person blind or have serious difficulty seeing? Answer Date of Assessment Author No 01/30/2022 10:13 AM Abigail Covarrubias RN * Does person have serious difficulty walking/climbing stairs? Answer Date of Assessment Author No 01/30/2022 10:13 AM Abigail Covarrubias RN * Does person have difficulty dressing/bathing? Answer Date of Assessment Author No 01/30/2022 10:13 AM Abigail Covarrubias RN * Does person have difficulty doing errands alone? Answer Date of Assessment Author No 01/30/2022 10:13 AM Abigail Covarrubias RN documented as of this encounter Mental Status * Does person have difficulty concentrating/remembering/making decisions? 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 1 mm long. 02/07/2022 3:33 PM CDT [facility] PATHOLOGY LAB Electron Microscopy Technical Summary # of Block(s) cut: 2 # of Glomeruli found: 1 # of Glomeruli photographed: 1 02/07/2022 3:33 PM CDT [facility] PATHOLOGY LAB Embedded Images - EM 02/07/2022 3:33 PM CDT U PATHOLOGY LAB Pathology/Cytolo gy BIOPSY OF TRANSPLANTED KIDNEY USING ULTRASOUND GUIDANCE / Unknown 01/27/2022 7:57 AM CDT 02/02/2022 10:09 AM CDT us Reva Edmond MD LAB - PATHOLOGY/CYTOLOGY ORD ERABLES Final Result Performing Organization Address City/State/[facility] Co de Phone Number [facility] PATHOLOGY LAB [address] [phone] documented in this encounter Visit Diagnoses Diagnosis 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 documented in this encounter Additional Health Concerns Infection Onset Date Last Indicated Resolved Time COVID-19 Under Investigation 07/15/2022 07/15/2022 07/26/2022 4:33 AM CDT documented as of this encounter Care Teams Broomcorn Press Feeder Relationship Specialty Start Date End Date Debbie Middleton APRN-LETICIA PCP - General 10/06/21 08/29/22 Compa Sam MD [address] [address] PCP - General Family Medicine 08/30/22 09/25/22 Debbie Middleton APRN-SURGICAL COORDINATOR PCP - General 09/26/22 09/28/22 Debbie Middleton APRN-SURGICAL COORDINATOR PCP - General 10/11/22 12/27/22 Compa Sam MD [address] [place] [address] PCP - General 12/28/22 Compa Sam MD [address] [place] [address] Family Medicine 09/29/22 Quintin Hope MD [address] [facility] [address] [place] [address] Nephrology 04/10/24 documented as of this encounter
--- OUTSIDE RECORDS SUMMARY | 2025-01-20 02:13 | XMS_ITS | Encounter Summary ---
Author Organization [facility] Health Address [address] [facility] [place] [address] Care Team Providers Care Release Manager Name Role Phone Compa Sam MD Unavailable [phone] Compa Sam MD Primary Care Provider [phone] Quintin Hope MD Unavailable [phone] Encounter Details Date Type Department Care Team (Late st Contact Info) Description 09/15/2023 Lab Requisition [facility] MAIN LAB [address] [place] [address] Quintin Snow MD [facility] [place] [address] Social History Tobacco Use Types Packs/Day Years Used Date Smoking Tobacco: Never Smokeless Tobacco: Never Alcohol Use Standard Drinks/Week Comments Not Currently 0 (1 standard drink = 0.6 oz pur e alcohol) OCCASIONAL AUDIT-C Answer Date Recorded Q1: How often do you have a drink containing alcohol? Monthly or less 08/31/2023 Q2: How many drinks containi ng alcohol do you have on a typical day when you are drinking? Patient does not drink Q3: How often do you have si x or more drinks on one occasion? 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 Gender Identity Not on file Sexual [...] Description 01/27/2025 1:00 PM CDT Clinical Support [facility] [address] [place] [address] documented as of this encounter Goals Goal [...] Associated Diagnosis Comments HOLD HLA SPECIMEN Routine 09/08/2023 8:0 5 AM REGULATORY SUBMISSIONS SPECIALIST documented in this encounter Results * HOLD HLA SPECIMEN (09/08/2023 8:05 AM REGULATORY SUBMISSIONS SPECIALIST) Hold HLA Specimen 09/15/2023 9:30 AM REGULATORY SUBMISSIONS SPECIALIST [facility] Comment:The Hold HLA specime n has been received into the lab and will be held for 5 years at 4 degrees. Blood BLOOD SPECIMEN / Unknown 09/08/2023 8:05 AM REGULATORY SUBMISSIONS SPECIALIST 09/15/2023 8:05 AM REGULATORY SUBMISSIONS SPECIALIST Quintin Snow MD LAB - BLOOD BANK ORDERABLES F inal Result [facility] ([facility] [address] [place] [address], [facility] documented in this encounter Visit Diagnoses Not on filedocumented in this encounter Care Teams Release Manager Relationship Specialty Start Date End Date Compa Sam MD [address] [place] [address] PCP - General 12/28/22 Compa Sam MD [address] [place] [address] Family Medicine 09/29/22 Quintin Hope MD [address] [facility] [address] [place] [address] Nephrology 04/10/24 documented as of this encounter
--- OUTSIDE RECORDS SUMMARY | 2025-01-20 02:13 | XMS_ITS | Encounter Summary ---
Author Organization [facility] Health Address [address] [facility] [place] [address] Care Team Providers Care Admitting Supervisor Name Role Phone Compa Sam MD Unavailable [phone] Compa Sam MD Primary Care Provider [phone] Quintin Hope MD Unavailable [phone] Encounter Details Date Type Department Care Team (Late st Contact Info) Description 12/04/[address] 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 TXP JEANETTE [facility] [address] [facility], [place] [address] documented as of this encounter Goals Goal Patient Goal Type Associated Problems Recent Progress Patient-Stated? Author Blood Pressure < 140/90 Blood Pressure 154/100(01/16 1:23 PM CDT) No Lilian Sky, wool merchant Management General On track( 024 12:38 PM [...] Associated Diagnosis Comments HOLD HLA SPECIMEN Routine 11/29/2024 10: 43 AM CUSTODIAL FOREMAN documented in this encounter Results * HOLD HLA SPECIMEN (11/29/2024 10:43 AM CUSTODIAL FOREMAN) Hold HLA Specimen 12/04/2024 12:02 PM CDT [facility] ([facility]) Comment:The Hold HLA specime n has been received into the lab and will be held for 5 years at 4 degrees. Blood BLOOD SPECIMEN / Unknown 11/29/2024 10:43 AM CUSTODIAL FOREMAN 12/04/2024 10:43 AM CDT Quintin Snow MD LAB - BLOOD BANK ORDERABLES F inal Result [facility] ([facility]) [address] [place] [address], [facility] documented in this encounter Visit Diagnoses Not on filedocumented in this encounter Care Teams Admitting Supervisor Relationship Specialty Start Date End Date Compa Sam MD [address] [place] [address] PCP - General 12/28/22 Compa Sam MD [address] [place] [address] Family Medicine 09/29/22 Quintin Hope MD [address] [facility], [address] [place] [address] Nephrology 04/10/24 documented as of this encounter
--- OUTSIDE RECORDS SUMMARY | 2025-01-20 02:13 | XMS_ITS | Encounter Summary ---
Author Organization [facility] Health Address [address] [place] [address] Care Team Providers Care Window Display Designer Name Role Phone Meryl Lacy Primary Care Provider [phone] Debbie Middleton Primary Care Provider [phone] Compa Sam MD Primary Care Provider [phone] Debbie Middleton Primary Care Provider [phone] Compa Sam MD Unavailable [phone] Debbie Middleton Primary Care Provider [phone] Compa Sam MD Primary Care Provider [phone] Quintin Hope MD Unavailable [phone] Encounter Details Date Type Department Care Team (Late st Contact Info) Description 01/21/2021 [facility] Outpatient Visit [facility] [address] [place] [address] Estee Lindsey, CHIEF OF HARBOR PATROL-ASSISTANT CLINICAL DIRECTOR [address] [facility] [place] [address] Social History Tobacco Use Types Packs/Day Years Used Date Smoking Tobacco: Never Comments Unknown Sex and Gender Information Value Date Recorded Sex Assigned at Not on file 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 No / Unsure 01/21/2021 2:26 PM CDT documented as of this encounter Plan of Treatment Upcoming Encounters Date Type Department Care Team (Late st Contact Info) Description 01/27/2025 1:00 PM CDT Clinical Support [facility] TXP JEANETTE [facility] [address] [place] [phone] documented as of this encounter Visit Diagnoses Not on filedocumented in this encounter Additional Health Concerns Infection Onset Date Last Indicated Resolved Time COVID-19 Under Investigation 07/15/2022 07/15/2022 07/26/2022 4:33 AM CDT documented as of this encounter Care Teams Window Display Designer Relationship Specialty Start Date End Date TiffanyzhangMeryl DO [address] [place] [address] PCP - General 03/25/21 10/05/21 Debbie Middleton APRN-CNP [address] [place] [address] PCP - General 10/06/21 08/29/22 Compa Sam MD [address] [place] [address] PCP - General Family Medicine 08/30/22 09/25/22 Debbie Middleton APRN-CNP [address] [place] [address] PCP - General 09/26/22 09/28/22 Debbie Middleton APRN-CNP [address] [place] [address] PCP - General 10/11/22 12/27/22 Compa Sam MD [address] [place] [address] PCP - General 12/28/22 Compa Sam MD [address] [place] [address] Family Medicine 09/29/22 Quintin Hope MD 10[address] [facility] [address] [place] [address] Nephrology 04/10/24 documented as of this encounter
--- OUTSIDE RECORDS SUMMARY | 2025-01-20 02:13 | XMS_ITS | Encounter Summary ---
Author Organization [facility] Address [address] [facility] [place] [address] Care Team Providers Care Table Top Tile Setter Name Role Phone Debbie Middleton Primary Care Provider [phone] Compa Sam MD Primary Care Provider [phone] Debbie Middleton Primary Care Provider [phone] Compa Sam MD Unavailable [phone] Debbie Middleton Primary Care Provider [phone] Compa Sam MD Primary Care Provider [phone] Quintin Hope MD Unavailable [phone] Reason for Visit * Reason Comments Kidney Transplant Follow-up Encounter Details Date Type Department Care Team (Late st Contact Info) Description 05/09/2022 Telephone [facility] - [address] [address] Saamra Auguste, RN Kidney Transplant Follow-up Social History Tobacco Use Types Packs/Day Years [...] on file 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 Pt reports to feel somewhat SOB, however not acute enough to report to ER. Pt states that she has appt on Monday and prefers to come to appt for discussion. RN reinforces to pt that if SOB is bothersome, please feel free to report to ER for evaluation and treatment. Pt. Verbalizes understanding. Dr. Tobin notified. documented in this encounter Plan of Treatment Upcoming Encounters Date Type Department Care Team (Late st Contact Info) Description 01/27/2025 1:00 PM CDT Clinical Support [facility]TE [facility] [address] [place] [address] documented as of this encounter Goals Goal [...] documented as of this encounter Care Teams Table Top Tile Setter Relationship Specialty Start Date End Date Debbie Middleton APRN-CNP PCP - General 10/06/21 08/29/22 Compa Sam MD [address] [place] [phone] PCP - General Family Medicine 08/30/22 09/25/22 Debbie Middleton APRN-CNP PCP - General 09/26/22 09/28/22 Debbie Middleton APRN-CNP PCP - General 10/11/22 12/27/22 Compa Sam MD [address] [facility] [address] [place] [address] PCP - General 12/28/22 Compa Sam MD [address] [facility] [address] [place] [address] Family Medicine 09/29/22 Quintin Hope MD 10[address] [facility] [address] [place] [address] Nephrology 04/10/24 documented as of this encounter
--- OUTSIDE RECORDS SUMMARY | 2025-01-20 02:13 | XMS_ITS | Referral Summary ---
Author Organization [address] Address [address] [place] [phone] Care Team Providers Care Peanut Separator Name Role Phone Compa Sam MD Primary Care Provider [phone] Encounters Date Type Department Care Team Description 12/26/[address] [place] [phone] Denia Hills LPN 11/28/2024 Telephone [place] [facility] at [address] [address] Susy Camarillo MA 11/21/2024 1:07 PM DESIGN TEACHER - 11/21/2024 11:59 PM DESIGN TEACHER Hospital Encounter [facility] Cardiology [address] [place] [address] Palpitations Discharge Disposition: Discharge to home or self care 11/21/2024 1:07 PM DESIGN TEACHER - 11/21/2024 11:59 PM DESIGN TEACHER Hospital Encounter [facility] Cardiology [address] [place] [address] Dilated cardiomyopathy (HCC) Discharge Disposition: Discharge to home or self care 10/25/2024 2:30 PM DESIGN TEACHER Office Visit [place] [facility] at [address] [phone] Dayton Saul MD Dilated cardiomyopathy (HCC) (Primary Dx); Palpitations from Last 3 Months Allergies Active Allergy Reactions Criticality Noted Date Comments Amoxicillin Hives,Rash Medium 02/17/2023 Amoxicillin-Pot Clavulanate Rash Medium 01/13/20 21 Doxycycline Hives,Rash Medium 11/30/2022 Fentanyl Other (See comments),Anxiety Low 01/12/2021 Hysteria Levofloxacin Nausea And Vomiting,Nausea & Vomiting,Nausea only Low 01/12/2021 Potassium Clavulanate Rash Medium 02/17/2023 Medications allopurinoL (ZYLOPRIM) 100 mg tablet Take 1 tablet (100 mg total) by mouth daily 08/09/20 21 Active aspirin 81 mg enteric coated tablet Take 1 tablet (81 mg total) by mouth daily Active cholecalciferol (VITAMIN D-3) 2000 unit capsule Take 1 capsule (2,000 Units total) by mouth daily Active cinacalcet (SENSIPAR) 30 mg tablet Take 1 tablet (30 mg total) by mouth 08/09/20 21 Active lansoprazole (PREVACID) 30 mg capsule Take 1 capsule (30 mg total) by mouth 2 (two) times a day 07/13/20 21 Active ondansetron ODT (ZOFRAN-ODT) 4 mg disintegrating tablet Take 1 tablet (4 mg total) by mouth 2 (two) times a day as needed 12/08/19 21 Active rosuvastatin (CRESTOR) 20 mg tablet Take 1 tablet (20 mg total) by mouth daily 07/13/20 21 Active albuterol HFA (PROVENTIL HFA,VENTOLIN HFA,PROAIR HFA) 90 mcg/actuation inhalerIndications :Acute cough,RSV (respiratory syncytial virus infection),Rhinovi araceli Inhale 2 puffs every 6 (six) hours as needed for wheezing or shortness of breath 1 each 07/20/20 22 Active benzonatate (TESSALON) 200 mg capsuleIndications :Acute cough,RSV (respiratory syncytial virus infection),Rhinovi araceli Take 1 capsule (200 mg total) by mouth 3 (three) times a day as needed for cough 30 capsule 07/20/20 22 Active bumetanide (BUMEX) 2 mg tablet Take 1 tablet (2 mg total) by mouth 2 (two) times a day Active calcitRIOL (ROCALTROL) 0.25 mcg capsule Take 1 capsule (0.25 mcg total) by mouth daily 09/25/19 22 Active cyclobenzaprine (FLEXERIL) 5 mg tablet TAKE 1 TABLET BY MOUTH THREE TIMES DAILY NEEDED FOR LEG PAIN Active vitamin B complex-vitamin C-folic acid (Rossana-Alexis) 0.8 mg tablet Active gentamicin (GARAMYCIN) 0.1 % cream APPLY TO EXIT SITE ONCE DAILY 01/01/20 24 Active NIFEdipine (NIFEdipine XL) 30 mg 24 hr tablet Take 2 tablets (60 mg total) by mouth 2 (two) times a day Active traZODone (DESYREL) 50 mg tablet TAKE 3 TABLETS BY MOUTH AT BEDTIME FOR INSOMNIA Active doxazosin (CARDURA) 4 mg tablet Take 1 tablet (4 mg total) by mouth 2 (two) times a day 03/10/20 24 Active metoprolol XL (TOPROL-XL) 25 mg extended release tablet Take 1 tablet (25 mg total) by mouth daily 12/25/19 24 Active acetaminophen (TYLENOL) 325 mg tablet Take 2 tablets (650 mg total) by mouth every 6 (six) hours as needed 10/14/19 23 Active vitamin B complex-vitamin C-folic acid (NEPHRO-ALEXIS) 0.8 mg tablet Take 1 tablet by mouth daily 10/10/19 23 Active Januvia 25 mg tablet Take 1 tablet (25 mg total) by mouth daily 90 tablet 3 03/18/20 24 Active blood-glucose sensor (FreeStyle Rubia 3 Plus Sensor) deviceIndications: Type 2 diabetes mellitus with hyperglycemia, without long-term current use of insulin ([facility]) Change sensor every 15 days Dx: E11.65 6 each 3 08/06/20 24 Active dilTIAZem CD/XR/XT (dilTIAZem CD) 120 mg 24 hr capsule Take 1 capsule (120 mg total) by mouth daily 30 capsule 11 11/30/19 25 026 Active insulin lispro (HumaLOG) 100 unit/mL pen for injection Take 6 units before meals, for sugars over 200, take 8 units, for sugars over 300, take 10 units 15 mL 1 12/27/19 25 Active pen needle, diabetic (Pen Needle) 31 gauge x 5/16 needle Use to inject 1-4 times daily as directed 100 each 11 12/27/19 25 Active belaTACEPT (NULOJIX) 250 mg recon soln Infuse 450 mg into a venous catheter once every four weeks 02/01/20 21 025 Discontin ued(Thera py completed ) diphenhydrAMINE (BENADRYL) 25 mg capsule Take 2 tablet/capsul e (50 mg total) by mouth nightly 025 Discontin ued(Thera py completed ) ALPRAZolam XR (XANAX XR) 0.5 mg 24 hr tablet Take 0.25 mg by mouth nightly 025 Discontin ued(Thera py completed ) ALPRAZolam (XANAX) 0.5 mg tablet TAKE 1 TABLET BY MOUTH ONCE DAILY FOR ANXIETY ONSET. 02/29/20 24 025 Discontin ued(Thera py completed ) folic acid (FOLVITE) 1 mg tablet Take 1 tablet (1,000 mcg total) by mouth daily 025 Discontin ued(Thera py completed ) NIFEdipine CC 60 mg 24 hr tablet Take 1 tablet (60 mg total) by mouth 2 (two) times a day 025 Discontin ued(Thera py completed ) NIFEDIPINE ORAL 10/25/19 025 Discontin ued(Thera py completed ) Active Problems Problem Noted Date Diagnosed Date Type 2 diabetes mellitus wit h hyperglycemia, without long-term current use of insulin 03/18/2024 Assessment & Plan (03/18/2024 4:26 PM CDT): Chronic, stable Importance of diet and exercise was re-emphasized Continue Januvia 25 mg daily Continue CGM with DTT Rubia 3 Social History Tobacco Use Types Packs/Day Years Used Date Smoking Tobacco: Never Smokeless Tobacco: Never Tobacco Cessation:Counseling Given: Not Answered Comments Unknown Sex and Gender Information Value Date Recorded Sex Assigned at Not on file Legal Sex Female 8:13 AM CDT Gender Identity Not on file Sexual Orientation Not on file Last Filed Vital Signs Vital Sign Reading Time Taken Comments Blood Pressure 109/74 10/25/2024 2:29 PM DESIGN TEACHER Pulse 101 10/25/2024 2:29 PM DESIGN TEACHER Temperature 36.9 C (98.4 F) 08/08/2022 6:56 PM DESIGN TEACHER Respiratory Rate 16 03/18/2024 12:11 PM CDT Oxygen Saturation 98% 08/08/2022 6:56 PM DESIGN TEACHER Inhaled Oxygen Concentration - - Weight 79.4 kg (175 lb) 10/25/2024 2:29 PM DESIGN TEACHER Height 162.6 cm (5' 4 ) 10/25/2024 2:29 PM DESIGN TEACHER Body Mass Index 30.04 10/25/2024 2:29 PM DESIGN TEACHER Plan of Treatment Not on file Procedures Procedure Name Priority Date/Time Associated Diagnosis Comments TRANSTHORACIC ECHO (TTE) LIMITED/FOLLOW UP WO DOPPLER/CF WO CONTRAST Routine 11/21/2024 1:55 PM DESIGN TEACHER Dilated cardiomyopathy (HCC) MCT - MOBILE CARDIAC TELEMETRY EVENT MONITOR Routine 11/21/2024 1:08 PM DESIGN TEACHER Palpitations POCT HEMOGLOBIN A1C Routine 03/18/2024 1 2:12 PM CDT Type 2 diabetes mellitus with hyperglycemia, without long-term current use of insulin (HCC) from Last 3 Months or Most Recently Relevant to Health Maintenance Results * TRANSTHORACIC ECHO (TTE) LIMITED/FOLLOW UP WO DOPPLER/CF WO CONTRAST (11/21/2024 1:55 PM DESIGN TEACHER) Anatomical Region Laterality Modality Ultrasound 11/21/2024 1:34 PM DESIGN TEACHER Narrative 11/21/2024 4:37 PM DESIGN TEACHER [address] [address] Limited Echocardiogram Report Patient Name: BRANDY SMITH : 1960 Study Date: 11/21/2024 1:34:08 PM Gender: F Tech: AA Location: echo room 1 Ref Provider: DAYTON SAUL Height(Cm): BSA: Weight(Kg): Quality: Good PROCEDURES: Echocardiographic Report: Limited transthoracic echocardiogram with 2D and M-Mode. INDICATIONS: LV f/u and I42.0 Dilated cardiomyopathy. MEASUREMENTS: 2D/MM Value Range EF Mod BP 62 % [ 54 - 74 ] 2D/MM Value Range - FINDINGS: Left Ventricle: Normal left ventricular systolic function with no focal wall motion abnormalities. Normal left ventricular size. Mild concentric left ventricular hypertrophy. Ejection fraction is measured at 62 %. Pericardium: Normal pericardium with no significant pericardial effusion. CONCLUSIONS: Normal left ventricular systolic function with no focal wall motion abnormalities. Normal left ventricular size. Mild concentric left ventricular hypertrophy. Ejection fraction is measured at 62 %. Normal pericardium with no significant pericardial effusion. Limited 2D echo study only. Electronically Signed By: Aren Smith MD 11/21/2024 4:37:36 PM DESIGN TEACHER Procedure Note Aren Smith MD - 11/21/[address] [address] Limited Echocardiogram Report Patient Name: BRANDY SMITH : 1960 Study Date: 11/21/2024 1:34:08 PM Gender: F Tech: AA Location: echo room 1 Ref Provider: DAYTON SAUL Height(Cm): BSA: Weight(Kg): Quality: Good PROCEDURES: Echocardiographic Report: Limited transthoracic echocardiogram with 2D and M-Mode. INDICATIONS: LV f/u and I42.0 Dilated cardiomyopathy. MEASUREMENTS: 2D/MM Value Range EF Mod BP 62 % [ 54 - 74 ] 2D/MM Value Range - FINDINGS: Left Ventricle: Normal left ventricular systolic function with no focal wall motionabnormalities. Normal left ventricular size. Mild concentric left ventricular hypertrophy.Ejection fraction is measured at 62 %. Pericardium: Normal pericardium with no significant pericardial effusion. CONCLUSIONS: Normal left ventricular systolic function with no focal wall motionabnormalities. Normal left ventricular size. Mild concentric left ventricular hypertrophy.Ejection fraction is measured at 62 %. Normal pericardium with no significant pericardial effusion. Limited 2D echo study only. Electronically Signed By: Aren Smith MD 11/21/2024 4:37:36 PM DESIGN TEACHER Dayton Saul MD CV ECHO PROCEDURES Final Re sult * MCT Mobile Cardiac Telemetry Event Monitor (11/21/2024 1:08 PM DESIGN TEACHER) Anatomical Region Laterality Modality Electrocardiogra phy 12/20/2024 11:5 9 PM CDT Narrative 12/28/2024 3:18 PM [address]T [address] [address] EVENT MONITOR Patient Name: BRANDY SMITH G : 1960 Study Date: 2024-12-20 11:59:00 PM Gender: F Tech: Ref Provider: DAYTON SAUL Height(Cm): BSA: Weight(Kg): Order Provider: DAYTON SAUL PROCEDURES: Event Report: Event Monitor Report. INDICATIONS: R00.2 Palpitations. FINDINGS: Protocol: Recording Duration (Ordered): 25d 18h Study Quality: Study quality is good. CONCLUSIONS: 1. Predominant rhythm is normal sinus rhythm. 2. No prolonged pauses. 3. Rare PACs. 4. Rare PVCs. 5. There are no supraventricular tachycardia events noted. 6. There are no ventricular tachycardia events noted. 7. The patient recorded no symptoms during the study. 8. No significant conduction system disease is demonstrated. 9. No malignant arryhthmias were demonstrated. Electronically Signed By: Vishal Pittman MD, [facility] 2024-12-29 4:16:59 PM CDT Procedure Note Dayton Saul MD / Vishal Pittman MD - 12/30/[address] [address] EVENT MONITOR Patient Name: BRANDY SMITH G : 1960 Study Date: 2024-12-20 11:59:00 PM Gender: F Tech: Ref Provider: DAYTON SAUL Height(Cm): BSA: Weight(Kg): Order Provider: DAYTON SAUL PROCEDURES: Event Report: Event Monitor Report. INDICATIONS: R00.2 Palpitations. FINDINGS: Protocol: Recording Duration (Ordered): 25d 18h Study Quality: Study quality is good. CONCLUSIONS: 1. Predominant rhythm is normal sinus rhythm. 2. No prolonged pauses. 3. Rare PACs. 4. Rare PVCs. 5. There are no supraventricular tachycardia events noted. 6. There are no ventricular tachycardia events noted. 7. The patient recorded no symptoms during the study. 8. No significant conduction system disease is demonstrated. 9. No malignant arryhthmias were demonstrated. Electronically Signed By: Vishal Pittman MD, [facility] 2024-12-29 4:16:59 PM CDT Dayton Saul MD CV CARDIAC SERVICES PROCEDU RES Edited * POCT hemoglobin A1c (03/18/2024 12:12 PM CDT) Hemoglobin A1C, POC 5.2 % Capillary blood 03/18/2024 1 2:12 PM CDT Ally Barber MD POINT OF CARE TEST ORDERABLES Fi nal Result from Last 3 Months or Most Recently Relevant to Health Maintenance Insurance [facility] Care Teams Peanut Separator Relationship Specialty Start Date End Date Compa Sam MD [address] [place] [id number] PCP - General Family Medicine 12/04/23
--- OUTSIDE RECORDS SUMMARY | 2025-01-20 02:13 | XMS_ITS | Encounter Summary ---
Author Organization [facility] Address [address] [place] [address] Care Team Providers Care Steam Cleaning Machine Operator Name Role Phone Compa Sam MD Unavailable [phone] Compa Sam MD Primary Care Provider [phone] Quintin Hope MD Unavailable [phone] Encounter Details Date Type Department Care Team (Late st Contact Info) Description 08/09/2024 Lab Requisition [facility] [address] [place] [id number] Quintin Snow MD [facility] [place] [place] [address] Social History Tobacco Use Types Packs/Day Years [...] on file Legal Sex Female 8:35 AM NEWS EDITOR Gender Identity Not on file Sexual [...] Description 01/27/2025 1:00 PM CDT Clinical Support [facility] [address]L [address] [facility] [place] [address] documented as of this encounter Goals Goal Patient Goal Type Associated Problems Recent Progress Patient-Stated? 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) Comment:The Hold HLA specime n has been received into the lab and will be held for 5 years at 4 degrees. Blood BLOOD SPECIMEN / Unknown 08/05/2024 10:50 AM NEWS EDITOR 08/09/2024 10:50 AM NEWS EDITOR Quintin Snow MD LAB - BLOOD BANK ORDERABLES F inal Result Performing Organization Address City/State/[facility] Co de Phone Number [facility] ([facility]) [address] [place] [address] documented in this encounter Visit Diagnoses Not on filedocumented in this encounter Care Teams Steam Cleaning Machine Operator Relationship Specialty Start Date End Date Compa Sam MD [address] [place] [address] PCP - General 12/28/22 Compa Sam MD [address] [place] [address] Family Medicine 09/29/22 Quintin Hope MD [address] [facility] [address] [place] [id number] Nephrology 04/10/24 documented as of this encounter
--- OUTSIDE RECORDS SUMMARY | 2025-01-20 02:13 | XMS_ITS | Clinical Summary ---
Author Organization [place] [address] [place] Address [address] [place] [phone] Care Team Providers Care Custodian Athletic Equipment Name Role Phone Compa Sam MD Primary Care Provider [phone] Allergies Active Allergy Reactions Criticality Noted Date [...] PAIN Active vitamin B complex-vitamin C-folic acid (Rossana-Carol) 0.8 mg tablet Active gentamicin (GARAMYCIN) 0.1 [...] 23 Active vitamin B complex-vitamin C-folic acid (NEPHRO-CAROL) 0.8 mg tablet Take 1 tablet by mouth daily 10/10/19 23 Active Januvia 25 mg tablet Take 1 tablet (25 mg total) by mouth daily 90 tablet 3 03/18/20 24 Active blood-glucose sensor (FreeStyle Rubia 3 Plus Sensor) deviceIndications: Type 2 diabetes mellitus with hyperglycemia, without long-term current use of insulin ([facility]) Change sensor every 15 days Dx: E11.65 [...] Januvia 25 mg daily Continue CGM with freestyle Rubia 3 Encounters Date Type Department Care Team Description 12/26/2024 Telephone [facility] [address], [place] [address] Denia Hills LPN 11/28/2024 Telephone [place] [employer] [facility] at [address] [address] Susy Camarillo MA 11/21/2024 1:07 PM CONSULTING PRACTICE MANAGER - 11/21/2024 11:59 PM CONSULTING PRACTICE MANAGER Hospital Encounter [facility] Cardiology [address] [place] [address] Palpitations Discharge Disposition: Discharge to home or self care 11/21/2024 1:07 PM CONSULTING PRACTICE MANAGER - 11/21/2024 11:59 PM CONSULTING PRACTICE MANAGER Hospital Encounter [facility] [address] [place] [phone] Dilated cardiomyopathy (HCC) Discharge Disposition: Discharge to home or self care 10/25/2024 2:30 PM CONSULTING PRACTICE MANAGER Office Visit [place] [facility] at [address] [phone] Lakshmi Saul MD Dilated cardiomyopathy (HCC) (Primary Dx); Palpitations from Last 3 Months Social History Tobacco Use Types Packs/Day Years Used Date Smoking Tobacco: Never Smokeless Tobacco: Never Tobacco Cessation:Counseling Given: Not Answered Comments Unknown Sex and Gender Information Value Date Recorded Sex Assigned at Not on file Legal Sex Female 8:13 AM CDT Gender Identity Not on file Sexual Orientation Not on file Obstetrics History Last Filed Vital Signs Vital Sign Reading Time Taken Comments Blood Pressure 109/74 10/25/2024 2:29 PM CONSULTING PRACTICE MANAGER Pulse 101 10/25/2024 2:29 PM CONSULTING PRACTICE MANAGER Temperature 36.9 C (98.4 F) 08/08/2022 6:56 PM CONSULTING PRACTICE MANAGER Respiratory Rate 16 03/18/2024 12:11 PM CDT Oxygen Saturation 98% 08/08/2022 6:56 PM CONSULTING PRACTICE MANAGER Inhaled Oxygen Concentration - - Weight 79.4 kg (175 lb) 10/25/2024 2:29 PM CONSULTING PRACTICE MANAGER Height 162.6 cm (5' 4 ) 10/25/2024 2:29 PM CONSULTING PRACTICE MANAGER Body Mass Index 30.04 10/25/2024 2:29 PM CONSULTING PRACTICE MANAGER Plan of Treatment Health Maintenance Due Date Last Done Comments Albumin Creatinine Ratio, Urine 1960 Breast Cancer Screening-Mammogram 1960 Cervical Cancer Screening 1960 Colon Cancer Screening-Colonoscopy 1960 Depression Screening 1960 Fall Risk Assessment 1960 Hepatitis C Screening 1960 eGFR 1960 Dilated Eye Exam 1960 Foot Exam 1960 Hepatitis B Screening 1977 Osteoporosis Screening-Bone Density Scan 02/03/2024 02/02/2022, 02/02/2022 Well Visit 65+ 02/10/2024 Covid-19 Vaccine (2023-2 5 season) 2024 06/26/2023, 03/06/2023, 06/23/2022, Additional history exists Hemoglobin A1C 09/17/2024 03/18/2024, 11/24, 11/07/2022, Additional history exists Lipid Panel 12/20/2024 12/21/2023, 0703/2023, 08/30/2022, Additional history exists Influenza Vaccine (Season Ended) 2025 06/09/2023, 06/23/2022, 07/16/2021, Additional history exists Pneumococcal vaccine 65+ (3 of 3 - PPSV23, PCV20 or PCV21) 12/14/2026 12/14/2021, 09/21/2021 DTaP/Tdap/Td Vaccine (2 - Td or Tdap) 02/25/2032 02/24/2022 Zoster Vaccine Completed 06/30/2022, 04/01/2022 Procedures Procedure Name Priority Date/Time Associated Diagnosis Comments TRANSTHORACIC ECHO (TTE) LIMITED/FOLLOW UP WO DOPPLER/CF WO CONTRAST Routine 11/21/2024 1:55 PM CONSULTING PRACTICE MANAGER Dilated cardiomyopathy (HCC) MCT - MOBILE CARDIAC TELEMETRY EVENT MONITOR Routine 11/21/2024 1:08 PM CONSULTING PRACTICE MANAGER Palpitations POCT HEMOGLOBIN A1C Routine 03/18/2024 1 2:12 PM CDT Type 2 diabetes mellitus with hyperglycemia, without long-term current use of insulin (HCC) from Last 3 Months or Most Recently Relevant to Health Maintenance Results * TRANSTHORACIC ECHO (TTE) LIMITED/FOLLOW UP WO DOPPLER/CF WO CONTRAST (11/21/2024 1:55 PM CONSULTING PRACTICE MANAGER) Anatomical Region Laterality Modality Ultrasound 11/21/2024 1:34 PM CONSULTING PRACTICE MANAGER Narrative 11/21/2024 4:37 PM CONSULTING PRACTICE MANAGER [address] [place] [address] Limited Echocardiogram Report Patient Name: BRANDY SMITH : 1960 Study Date: 11/21/2024 1:34:08 PM Gender: F Tech: AA Location: echo room 1 Ref Provider: LAKSHMI SAUL Height(Cm): BSA: Weight(Kg): Quality: Good PROCEDURES: [...] By: Aren Smith MD 11/21/2024 4:37:36 PM CONSULTING PRACTICE MANAGER Procedure Note Aren Smith MD - 11/21/[address] [address] Limited Echocardiogram Report Patient Name: BRANDY SMITH : 1960 Study Date: 11/21/2024 1:34:08 PM Gender: F Tech: AA Location: echo room 1 [facility] Provider: LAKSHMI SAUL Height(Cm): BSA: Weight(Kg): Quality: Good PROCEDURES: [...] By: Aren Smith MD 11/21/2024 4:37:36 PM CONSULTING PRACTICE MANAGER Lakshmi Saul MD ECHO PROCEDURES Final Re sult * [facility] Mobile Cardiac Telemetry Event Monitor (11/21/2024 1:08 PM CONSULTING PRACTICE MANAGER) Anatomical Region Laterality Modality Electrocardiogra phy 12/20/2024 11:5 9 PM CDT Narrative 12/28/2024 3:18 PM [address]T [address] [place] [address] EVENT MONITOR Patient Name: BRANDY SMTIH G : 1960 Study Date: 2024-12-20 11:59:00 PM Gender: F Tech: Ref Provider: LAKSHMI SAUL Height(Cm): BSA: Weight(Kg): Order Provider: LAKSHMI SAUL PROCEDURES: Event Report: Event Monitor Report. [...] demonstrated. Electronically Signed By: Vishal Pittman MD, [facility] 2024-12-29 4:16:59 PM CDT Procedure Note Lakshmi Saul MD / Vishal Pittman MD - 12/30/[address] [place] [address] EVENT MONITOR Patient Name: BRANDY SMITH G : 1960 Study Date: 2024-12-20 11:59:00 PM Gender: F Tech: Ref Provider: LAKSHMI SAUL Height(Cm): BSA: Weight(Kg): Order Provider: LAKSHMI SAUL PROCEDURES: Event Report: Event Monitor Report. [...] demonstrated. Electronically Signed By: Vishal Pittman MD, [facility] 2024-12-29 4:16:59 PM CDT Lakshmi Saul MD CV CARDIAC SERVICES PROCEDU RES Edited * POCT hemoglobin A1c (03/18/2024 12:12 PM CDT) Hemoglobin A1C, POC 5.2 % Capillary blood 03/18/2024 1 2:12 PM CDT Ally Barber MD POINT OF CARE TEST ORDERABLES Fi nal Result from Last 3 Months or Most Recently Relevant to Health Maintenance Insurance MEDICARE MEDICARE [facility] Care Teams Custodian Athletic Equipment Relationship Specialty Start Date End Date Compa Sam MD [address] [place], [place] [phone] PCP - General Family Medicine 12/04/23
--- OUTSIDE RECORDS SUMMARY | 2025-01-20 02:13 | XMS_ITS | Encounter Summary ---
Author Organization [facility] Address [address] [place] [address] Care Team Providers Care User Experience Developer Name Role Phone Debbie Middleton Primary Care Provider + [phone] Compa Sam MD Primary Care Provider + [phone] Debbie Middleton Primary Care Provider [phone] Compa Sam MD Unavailable [phone] Debbie Middleton Primary Care Provider [phone] Compa Sam MD Primary Care Provider [phone] Quintin Hope MD Unavailable [phone] Encounter Details Date Type Department Care Team (Late st Contact Info) Description 04/22/2022 Telephone [facility] - [address] [place] [id number] Samara Auguste, RN Social History Tobacco Use Types Packs/Day Years [...] on file Legal 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 No / Unsure 04/21/2022 3:16 PM CDT documented as of this encounter Functional Status * Question Answer Date of Assessment Author Q1: How often do you have a drink containing alcohol? 2-4 times a month 04/22/2022 7:58 PM NIKITAT Sheila Ellis R N Q2: How many drinks containing alcohol do you have on a typical day when you are drinking? 1 or 2 04/22/2022 7:58 PM NIKITAT Sheila Ellis RN Q3: How often do you have six or more drinks on one occasion? Never 04/22/2022 7:58 PM CDT Sheila Ellis R N * Audit-C Score Answer Date of Assessment Author 2 04/22/2022 7:58 PM CDT Soraya Ellis RN * Is person deaf or have serious hearing difficulty? Answer Date of Assessment Author No 01/30/2022 10:13 AM CDT Abigail Watson RN * Is person blind or have serious difficulty seeing? Answer Date of Assessment Author No 01/30/2022 10:13 AM NIKITAT Abigail Watson RN * Does person have serious difficulty walking/climbing stairs? Answer Date of Assessment Author No 01/30/2022 10:13 AM CDT Abigail Watson RN * Does person have difficulty dressing/bathing? Answer Date of Assessment Author No 01/30/2022 10:13 AM NIKITAT Abigail Watson RN * Does person have difficulty doing errands alone? Answer Date of Assessment Author No 01/30/2022 10:13 AM NIKITAT Abigail Watson RN documented as of this encounter Mental Status * Does person have difficulty concentrating/remembering/making decisions? Answer Entry Date Author No 01/30/2022 10:13 AM CDT Abigail Watson RN documented in this encounter Miscellaneous Notes * Telephone Encounter - Samara Auguste RN - 04/22/2022 8:45 AM CDT Call received from pt to report now receiving labs completed 04/21. Reports concern over creatinine of 3.70. Leaving on vacation until 05/04/22. Inquiring if she could go on vacation, with plan for renal biopsy on 05/10, or does she need to be here at this time. Please advise. Dr. Sotomayor notified.Please return call @ [phone]. documented in this encounter Plan of Treatment Upcoming Encounters Date Type Department Care Team (Late st Contact Info) Description 01/27/2025 1:00 PM CDT Clinical Support [facility] [address] [place] [address] documented as of this encounter Goals Goal [...] documented as of this encounter Care Teams User Experience Developer Relationship Specialty Start Date End Date Debbie Middleton APRN-CHEMICAL PRODUCTION MACHINE OPERATOR PCP - General 10/06/21 08/29/22 Compa Sam MD [address] [address] PCP - General Family Medicine 08/30/22 09/25/22 Debbie Middleton APRN-CHEMICAL PRODUCTION MACHINE OPERATOR PCP - General 09/26/22 09/28/22 Debbie Middleton APRN-CHEMICAL PRODUCTION MACHINE OPERATOR PCP - General 10/11/22 12/27/22 Compa Sam MD [address] [facility] [address] [place] [address] PCP - General 12/28/22 Compa Sam MD [address] [facility] [address] [place] [id number] Family Medicine 09/29/22 Quintin Hope MD [address] [facility] [address] [place] [address] Nephrology 04/10/24 documented as of this encounter
--- OUTSIDE RECORDS SUMMARY | 2025-01-20 02:13 | XMS_ITS | Clinical Summary ---
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 tachycardia when she is seen in clinic) Message ----- From: Abundio Benjamin MD Sent: 01/30/2023 7:01 PM CDT To: Theresa Hood MD; Birdie Interiano RN; * Subject: RE: Holter monitor Thank you Dr. Trujillo! ----- Message ----- From: Lalit Trujillo MD Sent: 01/30/2023 10:26 AM CDT To: Theresa Hood MD; Abundio Benjamin MD Subject: Holter monitor Colleagues, I reviewed Holter monitor for Brandy. It is a fairly normal study. She had some very very short runs of SVT, longest 7 beats, which should not preclude her from anything. Let me know if you have any questions. Rey HOLTER MONITOR REPORT: Patient name: Brandy Smith Patient : 1960 Patient Age: [age] year old Indication: Palpitations Requesting provider: Abundio Benjamin Study Duration: Test Start 28-Dec-2022 13:46:12 Wed Test End 11-Jan-2023 00:00:00 Wed Test Duration 13d 10h 13m Analysis Duration 5d 23h 20m Summary: The observed rhythms are sinus rhythm to sinus tachycardia . * The Maximum Heart Rate recorded was 192 bpm, Day 3 :25:45 pm, the Minimum Heart Rate recorded was 69 bpm, Day :44:29 am and the Average Heart Rate was 99 bpm. 1. Atrial ectopy / premature atrial complexes (PAC) - 180 supraventricular ectopic beats occurred (0.02 % of complexes) mainly as isolated ectopy. 6 couplets and 8 runs of supraventricular ectopy occurred, with the longest run lasting 7 complexes at a rate of 108 bpm BPM, and the fastest run at a rate of 192 BPM lasting 3 complexes. 2. Ventricular ectopy / premature ventricular complexes (PVC) - 0 ventricular ectopic beats occurred 3. No significant bradycardia or pauses occurred. 4. Atrial fibrillation/flutter was not detected Manually Triggered events: There were 7 manually triggered events. During these triggered episodes, the patient reported no symptoms and lead loss/artifact were noted during recordings, suspicious for accidental pushes. Other tracings mainly demonstrated sinus rhythm with rare and short runs of SVT. Conclusion: No sustained arrhythmias. Pertinent Previous Committee Presentations: [facility] 10/10/2024 Committee Review Decision: Make Inactive Prior Transplants: N/A EPTS: 88 at 10/10/2024 12:47 PM Calculated from: Age: 64 years Has Diabetes: Yes Prior solid organ transplant: No Dialysis: 2 years 3 months Committee Discussion Details: Pt presented to review recent hospitalization at [facility]. Pt treated for Sepsis infection. Reviewed positive blood cultures for Staph aureus. Reviewed Echo and LHC results. Echo shows EF 30-35%, Takotsubo cardiomyopathy (Broken Heart syndrome). LHC report shows no CAD yet NSTEMI (EF 50%). Per team, make inactive for 3 months. Pt will need Cardiac clearance then repeat Echo and represent. [facility] 04/11/2024 Committee Review Decision: Remain Active Prior Transplants: N/A EPTS: 84 at 04/11/2024 1:23 PM Calculated from: Age: 64 years Has Diabetes: Yes Prior solid organ transplant: No Dialysis: 1 year 9 months Committee Discussion Details: Pt presented at [facility] for Hep C kidney listing. Reviewed past medical and surgical history. Reviewed Hepatology evaluation: -Fibroscan 04/05/24: Liver stiffness 5.7, CAP 210, low probability of hepatic steatosis, fibrosis. -LFTs normal -Liver imaging- discussed liver lesion and clearance by Tumor board -Reviewed Hepatology clinic note - no current contraindication for Hep C kidneys. Dr Edmond also discussed cause of graft failure. Discussed current PRA/HLA. Per team, change induction to Thymo 5. Per team, OK to list for Hep C kidneys. Induction Method: Immunosuppression Induction Method/Plan: Antithymocyte globulin (rabbit) (Thymoglobulin) 5 mg/kg [facility] note: 04/13/2023 Induction Method: Immunosuppression Induction Method/Plan: Antithymocyte globulin (rabbit) (Thymoglobulin) 3 mg/kg *pt still on belatacept, will get repeat DSAs once off, may need to change induction plan* Committee Discussion Details: Pt's case presented at [facility] today for approval to list. HH and evaluation testing reviewed but not limited to: - This will be pt's 2nd txp. 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 Her initial cause of kidney failure maybe r/t urosepsis. Pt remains on belatacept. Dr. Edmond spoke about pt's case to team: When pt first started the evaluation process, she had potential LDs, children did not step forward but other people did, however, they did not work out. If pt with no other LDs, he is going to speak with her about stopping the belatacept. He discussed pt being a HIGH risk candidate for another txp as she rejected multiple times during her first txp. Pt also with hx of lots of BCC, 10 BCC pathologies/notes that I could track down, with most recent BCC in 01/2023. Pt is following with dermatology q6 months. Team discussed induction, PRAs are resulting as 0 only bc of desensitization from the belatacept. Team said 3mg/kg thymo at this time. - team aware when pt was seen in clinic she was c/o dizziness/room spinning sometimes. We sent her to neurology, they examined her, no new imaging completed, last head CT from 2020, reviewed clinic note with team. Reviewed carotids and ast 4 weeks of BPs with team. - pt also with hx of tachycardia when she comes to clinic, Dr. Benjamin ordered a holter monitor. Reviewed results/Dr. Trujillo's input with team. - CT pelvis imaging from 12/22/2022 reviewed - calcs ok - MRA abd w/wo completed initially as f/u to the IPMN seen on MRI from 04/2022. Reviewed results along with tumor board recommendations on liver lesion and biliary dilitation. Reviewed dedicated MRI liver with team and tumor board recommendations. Dr. Benjamin spoke to team briefly on this as well. No concerns at this time, just repeat imaging in 6 months. - UTD mammogram scheduled for 04/18 - SW - no concerns - RD - no concerns - FC - no concerns, ok to list Per team, ok to list pending mammogram results. PSC: 10/20/2022 Committee Discussion Details: Pt's case presented at [facility] to discuss her candidacy for txp. Team aware pt is a prior txp from 09/2018 and RTD in 05/2022. Team aware pt stated she has had at least 15 BCCs in her lifetime. Told them I was only able to track down 9 since 2019. Team discussed induction and what immunosuppression therapy plan could be post txp. Nothing definitive plan was determined yet. Per team, ok to proceed with work up at this time. Labs: 12/24/2024 PTH: 858.1 A1c: 6.9 Glucose: 158 GFR: 5 Serologies: +HepBsAb, all others negative (lost immunity to Hep B) CMV Igg: Positive EBV Igg: Positive Varicella: Immune MMR: Immune Toxo: <3.0 Strongyloides: 0.1 Albumin: 2.5 Quant Gold: negative Tox Screen: All negative PRA: Class 1 Class 2: 0,21 CA19-9: 50 Phos: 10.6 Vit D: 24.1 Latest Reference Range & Units 05/04/23 14:42 12/21/23 12:55 12/24/24 08:24 CA 19-9 <=35 U/mL 31 40 (H) 50 (H) (H): Data is abnormally high Reviewed Hepatitis vaccination: Hepatitis A positive due to vaccine, Hepatitis B positive due to vaccine, Recent Labs Component Name 12/21/23 1255 06/09/22 1213 06/03/22 1445 HAVAB Positive* - - HBSAB - - 143.52 HBVSAB 86.4* - - HEPBCAB Non-reactive - Non-reactive HEPBSAG Non-reactive - - - = values in this interval not displayed. Oct-Nov BPs: Kidney allograft Biopsy: 04/26/2022 Final Diagnosis Kidney, Allograft, Percutaneous Needle Biopsy: - Acute/active (cellular) rejection, borderline. 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 - Arteriolar hyalinosis, consistent with chronic calcineurin inhibitor effect. - See note. Note: Light microscopic examination shows glomerulitis and capillaritis, findings consistent with acute antibody-mediated rejection; immunofluorescence analysis with C4d shows a negative paratubular capillary label. Additionally, an occasional glomerulus with segmental sclerosis shows prominence of podocytes, a feature of collapsing glomerulopathy. Superimposed diabetic nephropathy cannot be excluded. With regard to chronic changes, 10 of 24 glomeruli are globally sclerotic, there is approximately 30% tubule atrophy, and there is approximately 40% interstitial fibrosis. Light microscopy and immunofluorescence results were reported to Dr. Edmond on 04/27/22 at 3:40 p.m. Ultrastructural analysis is pending and will be reported in an addendum. at 2075 Microscopic Description and Comment 1 H&E, 1 Hein silver, 1 PAS, 1 trichrome. Sections show fibroadipose connective tissue and needle cores of renal parenchyma with up to 24 glomeruli, up to 10 of which are globally sclerotic and up to 4 of which show segmental sclerosis. An occasional glomerulus with segmental sclerosis shows podocyte prominence with protein droplets within podocyte cytoplasm. Diffusely, nonsclerotic glomeruli show mesangial expansion; focally, glomeruli show mesangial hypercellularity. Glomeruli show increased intraluminal leukocytes ( glomerulitis ), and numerous glomerular capillaries show double-contour basement membranes. A rare glomerulus shows capillary hyalinosis. There is glomerulomegaly. The interstitium is expanded by fibrosis occupying approximately 40% of the cortex sampled. Within the interstitium is a moderate mononuclear inflammatory infiltrate. Approximately 30% of tubules are atrophic. Occasional nonatrophic tubules show mild tubulitis. Arteries show mild intimal fibrosis. There is no arteritis. Arterioles show hyalinosis. Paratubular capillaries show an increase in intraluminal leukocytes ( capillaritis ). (DSB) Clinical History The patient is a 62-year-old woman with diabetes mellitus who underwent renal transplantation in 2019. She presents with creatinine above baseline and proteinuria and underwent percutaneous needle biopsy of the renal allograft. Clinical differential diagnosis list includes antibody-mediated rejection and focal segmental glomerulosclerosis (FSGS). Previous renal allograft biopsy ([id number]) showed light microscopic findings consistent with acute antibody-mediated rejection, transplant glomerulopathy, and arteriolar hyalinosis consistent with chronic calcineurin inhibitor effect. Gross Description Received fresh on Telfa at room temperature are four needle cores of springer-pink tissue with diameters of 0.1 cm and lengths ranging from 1.4 cm to 1.9 cm. Glomeruli are identified with the dissecting scope. The specimen is submitted in its entirety for light microscopic, immunofluorescence, and electron microscopic analyses. Immunofluorescence 2 FS H&E, 1 IgG, 1 IgA, 1 IgM, 1 C1q, 1 C3, 1 albumin, 1 fibrinogen, 1 kappa, 1 lambda, 1 C4d. H&E: Shows renal parenchyma with several glomeruli, a few of which are globally sclerotic. Ig+ diffuse global linear glomerular basement membrane label. IgA: Trace diffuse global linear glomerular basement membrane label. IgM: Variable (2+ to 3+) diffuse global smudgy mesangial label. C1q: 3+ diffuse global smudgy mesangial label. C3: 3+ focal global smudgy mesangial label, 3+ focal global smudgy glomerular basement membrane label. Albumin: 2+ diffuse global linear glomerular basement membrane label. Fibrinogen: Nonspecific label. [place]: 3+ cast label. Lambda: 3+ cast label. Addendum 1 Electron Microscopy: [id number]. [id number]-[id number], mjgaghqgr-cokx-[id number] sections of five blocks are reviewed; one is selected for ultrastructural analysis. Transmission electron microscopic analysis of a single glomerulus shows segmental sclerosis, widespread effacement of visceral epithelial foot processes, segmental thickening of the basement membrane, segmental deposition of electron-dense material (hyalin), and a marked increase in mesangial matrix, which contains collagen fibrils. EM Interpretation: - Segmental glomerulosclerosis. 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 - Arteriolar hyalinosis, consistent with chronic calcineurin inhibitor effect. - Negative for acute/active (cellular) rejection. - See note. Note: Light microscopic examination shows glomerulitis and capillaritis, findings consistent with acute antibody-mediated rejection; immunofluorescence analysis for C4d shows a negative paratubular capillary label. Superimposed diabetic nephropathy cannot be excluded. With regard to chronic changes, 2 of 11 glomeruli are globally sclerotic, there is approximately 20% tubule atrophy, and there is approximately 30% interstitial fibrosis. Light microscopy and immunofluorescence results were reported to Dr. Whitney on 01/28/22 at 3:00 p.m. Ultrastructural analysis is pending and will be reported in an addendum. at 1538 Microscopic Description and Comment 1 H&E, 1 Hein silver, 1 PAS, 1 trichrome. Sections show fibrous connective tissue and needle cores of renal parenchyma comprising cortex and medulla, the former containing up to 11 glomeruli, up to 2 of which are globally sclerotic. Diffusely, nonsclerotic glomeruli show mild mesangial expansion and leukocyte margination in capillary lumina ( glomerulitis ); focally, nonsclerotic glomeruli show mesangial hypercellularity. An occasional glomerulus has a rare capillary with double-contour basement membranes. There is glomerulomegaly. The interstitium is expanded by fibrosis occupying approximately 30% of the cortex sampled. Within the interstitium are occasional hemosiderin deposits and a moderate mononuclear inflammatory infiltrate with occasional eosinophils; a single focus shows up to 20 eosinophils per high-power field. Approximately 20% of tubules are atrophic. Nonatrophic tubules show focal cytoplasmic vacuolization and no significant tubulitis. Small arteries and arterioles show hyalinosis. There is no arteritis. Paratubular capillaries show leukocyte margination ( capillaritis ). (DSB) Clinical History The patient is a 61-year-old woman with who underwent renal transplantation in September of 2018. She has creatinine of 2.28 and 2+ proteinuria and underwent percutaneous needle biopsy of the renal allograft. Gross Description Received fresh on Telfa at room temperature are three needle cores of springer-pink tissue with diameters of 0.1 cm and lengths ranging from 2.1 cm to 2.3 cm. Glomeruli are identified with the dissecting scope. The specimen is submitted in its entirety for light microscopic, immunofluroescence, and electron microscopic analyses. Immunofluorescence 2 FS H&E, 1 IgG, 1 IgA, 1 IgM, 1 C1q, 1 C3, 1 albumin, 1 fibrinogen, 1 kappa, 1 lambda, 1 C4d. H&E: Shows renal parenchyma with several glomeruli. Ig+ diffuse global linear glomerular basement membrane label. IgA: Trace diffuse global linear glomerular basement membrane label. IgM: Variable (trace to 1+) diffuse global smudgy mesangial label, trace focal segmental smudgy glomerular basement membrane label. C1q: Variable (1+ to 2+) diffuse global smudgy mesangial label, trace diffuse segmental smudgy glomerular basement membrane label. C3: Trace diffuse segmental granular mesangial label. Albumin: 1+ diffuse global linear glomerular basement membrane label. Fibrinogen: Nonspecific label. [place]: 3+ cast label. Lambda: 3+ cast label. C4d: Negative paratubular capillary label. Addendum 1 Electron Microscopy: [id number]. Yfn-[id number]-llqhd, olragehle-dbrs-fabfmhj sections of two blocks are reviewed; one is selected for ultrastructural analysis. Transmission electron microscopic analysis of a single glomerulus shows moderate effacement of visceral epithelial foot processes, reduced endothelial fenestrations, a moderate increase in mesangial matrix, and segmental mesangial interposition. 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 Kidney allograft bx: Completed at [facility] (14 days post txp) EK03/25/2023 Component Ref Range & Units 7 mo ago Heart Rate bpm 77 OR Interval ms 187 P Waucoma deg 30 QRS Interval ms 89 QT Interval ms 418 QTcB (Best for HR 60-90 bpm) ms 475 QTCf ms 454 QRS Waucoma deg 19 T Wave Waucoma deg 27 EKG Impression - NORMAL ECG - EKG Impression Sinus rhythm EKG Impression No previous tracing available for comparison Echo: 12/24/2024 Summary * The left ventricle is borderline dilated, with normal systolic function and an estimated ejection fraction of 71 % by biplane method of disks. Left ventricular wall motion is normal. * The left ventricular mass is normal with concentric remodeling. * The left ventricular diastolic function is normal. * Right ventricle is normal in size with normal systolic function. * No hemodynamically significant valve disease. * The pulmonary artery systolic pressure is normal, 29 mmHg. Left Ventricle The left ventricle is borderline dilated. Left ventricular systolic function is normal with an estimated ejection fraction of 71 % by biplane method of disks. The left ventricular mass is normal with concentric remodeling. Left ventricular segmental wall motion is normal. The left ventricular diastolic function is normal. Right Ventricle The right ventricle is normal in size. Right ventricular systolic function is normal. Left Atrium The left atrium is normal in size with a left atrial volume index of 23 ml/m2 by BP MOD. Right Atrium The right atrium is normal in size. Atrial Septum Intact interatrial septum visualized by 2D and color Doppler imaging. Aortic Valve The aortic valve is trileaflet. There is no aortic valve stenosis. There is no aortic valve regurgitation. Pulmonic Valve The pulmonic valve is normal. There is no pulmonic valve stenosis. There is no significant pulmonic regurgitation. Mitral Valve The mitral valve is grossly normal. There is no mitral valve stenosis. There is trace mitral valve regurgitation. Tricuspid Valve The tricuspid valve is grossly normal. There is trace tricuspid valve regurgitation. The pulmonary artery systolic pressure is normal, 29 mmHg. Inferior Vena Cava The inferior vena cava is normal in size (< 2.1 cm). Pericardium/Pleural There is no pericardial effusion. Aorta The aortic root at the sinus of Valsalva is normal in size. The ascending aorta is normal in size. Limited Echo for EF: 11/21/2024 ([facility] CONCLUSIONS: Normal left ventricular systolic function with no focal wall motion abnormalities. Normal left ventricular size. Mild concentric left ventricular hypertrophy. Ejection fraction is measured at 62 %. Normal pericardium with no significant pericardial effusion. Limited 2D echo study only. Echo: 09/25/2024 DSE: 12/24/2024 Summary * No abnormal ST/T wave changes with stress. * Stress ECG is negative for ischemia. * Normal left ventricular systolic function with no regional wall motion abnormalities noted at rest. * No regional wall motion abnormalities noted post stress. * The stress echocardiogram is negative for dobutamine induced wall motion abnormalities. C: 09/27/2024 LHC: 07/12/2018 CXR: 12/24/2024 IMPRESSION: Left chest port with tip overlying the right atrium Spinal hardware is partially visualized. Right axillary vascular stent Surgical clips overlie the right upper quadrant. No focal consolidation, pneumothorax, or pleural effusion. Hilar structures and pulmonary vascular lung markings appeared within normal limits. Irregular contour of the right lateral border of the heart corresponding with a likely pericardial cyst noted on prior MRI of the abdomen on 04/27/2022. No displaced fractures identified. Dextrocurvature of the thoracic spine. MRI angio abd w/w/o contrast: 04/27/2022 FINDINGS: The lung bases are clear. There is a partially imaged, 4.8 x 2.0 cm T2 hyperintense observation abutting the right heart border, likely pericardial cyst. There is a smooth hepatic surface contour. No hepatic steatosis. No abnormal arterial enhancement in the liver. The gallbladder is absent. There is dilation of the common duct measuring up to 11 mm compatible with postcholecystectomy state. Mild intrahepatic biliary ductal dilation. There is a 3 mm cyst in the pancreatic body likely a side branch intraductal papillary mucinous neoplasm. The pancreatic duct is nondilated. Normal spleen and adrenal glands. The [place] right kidney is absent. There is cystic degeneration of the [place] left kidney with innumerable simple and hemorrhagic cysts. No abnormally enhancing lesion in the left kidney. There is a left pelvic transplant kidney which is normal in signal. No hydronephrosis. There is the appearance of a small filling defect of the transplant renal artery at the level of of its origin from the left external iliac artery without significant luminal narrowing (series 14, image 41 and series 8, image 34). The transplant renal artery is patent distal to this level including the segmental branches. The transplant renal vein is patent. The large arteries in the abdomen otherwise appear patent. The stomach and visualized loops of bowels are unremarkable. The uterus is absent. Small volume pelvic free fluid. There is thoracolumbar scoliosis and postoperative change of the spine. IMPRESSION: 1.Postoperative changes of renal transplant in the left pelvis. There is no significant luminal narrowing of the transplant renal artery or vein. 2.Absent right kidney and cystic degeneration of the left kidney. 3.Subcentimeter pancreatic body cyst, likely IPMN. Attention on follow-up imaging is recommended. 4.Cholecystectomy. Intrahepatic and extrahepatic biliary ductal dilation may represent reservoir effect. Consider MRCP for better visualization if clinically warranted. MRI angio abd w/w/o contrast: 12/22/2022 (follow up to findings on MRI angio completed on 04/27/2022) INDICATION: [id number]: Pre-transplant evaluation for kidney transplant Ordering Provider Reason For Exam: f/u to There is a 3 mm cyst in the pancreatic body likely a side branch of IPMN seen on MRI Angio completed at [facility] in 04/2022 COMPARISON: MRI angiography of the abdomen dated 04/27/2022 TECHNIQUE: MRI angiography of the abdomen was performed utilizing multiple pulse sequences in multiple planes before and after intravenous gadolinium contrast administration. CONTRAST: GADOTERATE MEGLUMINE 0.5 MMOL/ML IV [facility] SO:19 mL FINDINGS: Lower Chest: Normal. Hepatobiliary system Liver morphology: Normal size with smooth surface contour. A 1.1 cm arterially hyperenhancing observation is suggested in hepatic segment 8 (series 16, image 26). Steatosis/iron: Signal loss on in phase imaging within the liver and spleen is consistent with secondary hemochromatosis. Spleen: Otherwise normal. Vasculature Portal and hepatic veins: Patent. Arterial anatomy: Conventional. Gallbladder and bile ducts Gallbladder: Absent. Bile ducts: The intrahepatic bile ducts are markedly dilated. The extrahepatic bile duct is markedly dilated measuring 1.6 cm in diameter. There is smooth tapering to the ampulla without filling defect or stricture. Retroperitoneum Pancreas: The pancreas is atrophic. The pancreatic duct is nondilated. A 3 mm cyst within the body/tail of pancreas is unchanged (series 3, image 21). Adrenals: Normal. Lymph nodes: No lymphadenopathy. Kidneys Innumerable predominantly hemorrhagic cysts are present throughout the left [place] kidney. A single left renal artery is present and normal in caliber. There is no [place] right kidney Transplant kidney in the left pelvis is normal in morphology and signal. There is no hydronephrosis. The transplant renal artery is patent without focal stenosis. The transplant renal vein is patent. Gastrointestinal: Imaged bowel and mesentery are normal. Vascular findings: The aorta and its major branches are patent without focal stenosis. The left iliac vasculature is more tortuous than the right. Other: Levorotatory scoliosis of the thoracolumbar spine is present status post corrective hardware. Degenerative changes are seen throughout the spine. IMPRESSION: 1.Status post renal transplant with patent vasculature. 2.A 3 mm cyst within the body/tail of the pancreas is unchanged. 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 Correlation with laboratory values is recommended. 4.A 1.1 cm arterially hyperenhancing observation is suggested in hepatic segment 8. This could represent artifact. Dedicated liver MRI is recommended for further evaluation. 5.Iron deposition in the liver and spleen. *reviewed results with Dr. Benjamin and Dr. Hollins and the decision was to review at tumor board* Tumor Board: 01/05/2023 Liver Cancer Conference 01/04/2023 Previous Tumor Board Discussion Dates: None Previous Recommendations: None Presenter: Sourav Entry Analyst: None Interventional Radiologist: None Surgeon: Sourav Transplant Status: referred Hx: 62 year old female with a hx of failed kidney transplant found to have a liver lesion and biliary dilatation on evaluation imaging Original Tumor Detection Date: 12/22/2022 Original Tumor Size: MRI Hepatobiliary system Liver morphology: Normal size with smooth surface contour. A 1.1 cm arterially hyperenhancing observation is suggested in hepatic segment 8 (series 16, image 26). Steatosis/iron: Signal loss on in phase imaging within the liver and spleen is consistent with secondary hemochromatosis. Spleen: Otherwise normal. Vasculature Portal and hepatic veins: Patent. Arterial anatomy: Conventional. Gallbladder and bile ducts Gallbladder: Absent. Bile ducts: The intrahepatic bile ducts are markedly dilated. The extrahepatic bile duct is markedly dilated measuring 1.6 cm in diameter. There is smooth tapering to the ampulla without filling defect or stricture. Previous Intervention/Treatment: None Question: Review imaging; discuss next steps/recommendations Labs: CMP Latest Reference Range & Units 11/07/22 12:06 Sodium 136 - 145 mmol/L 132 (L) Potassium 3.5 - 4.5 mmol/L 5.3 (H) Chloride 98 - 107 mmol/L 104 CO2 22 - 29 mmol/L 17 (L) Anion Gap 8 - 18 16 BUN 7 - 26 mg/dL 16 Creatinine 0.56 - 0.96 mg/dL 4.21 (H) eGFR >=90 mL/min/1.73 m2 11 (L) Glucose 70 - 115 mg/dL 112 Calcium 8.4 - 10.2 mg/dL 8.9 Magnesium 1.6 - 2.6 mg/dL 1.8 Phosphorus 2.9 - 5.1 mg/dL 3.9 BUN/Creatinine Ratio 7 - 23 4 (L) Alkaline Phosphatase 40 - 150 U/L 68 ALT 5 - 55 U/L 11 AST 5 - 34 U/L 23 Protein Total 6.0 - 8.3 g/dL 7.0 Albumin 3.4 - 5.0 g/dL 3.4 Bilirubin Total 0.2 - 1.2 mg/dL 0.5 Osmolality Calculated 270 - 300 mOsm/kg 276 Albumin/Globulin Ratio 1.1 - 2.3 0.9 (L) Uric Acid 2.6 - 6.0 mg/dL 2.5 (L) CBC Latest Reference Range & Units 11/07/22 11:52 WBC 3.5 - 10.5 10 3/uL 5.9 RBC 3.80 - 5.20 10 6/uL 3.84 Hemoglobin 12.0 - 15.6 g/dL 11.7 (L) Hematocrit 35.0 - 45.0 % 37.7 MCV 80.7 - 98.3 fL 98.2 MCH 26.7 - 34.0 pg 30.5 MCHC 30.8 - 35.9 g/dL 31.0 Platelet Count 150 - 400 10 3/uL 178 AFP Not available Date of Imaging Discussed: See Above Imaging Findings & Impression: See Above Discussion: There is vague area of enhancement in the liver, 1 cm, which is non-specific. There is marked ductal dilatation intrahepatic and extrahepatic; more than normal in setting of cholecystectomy. Recommendation: Follow up with dedicated Liver MRI 01/04/2023: received notification from Dr. Benjamin, the decision from the tumor board was to complete an MRI of the liver lesion and complete an ERCP to follow up on the intrahepatic biliary dilatation as it suggest a stricture. MRI abd w/wo contrast: 03/01/2023 (LIVER protocol: follow up to liver lesion seen on MRI angio abd completed here on 12/22/2022, discussed at tumor board, recommended dedicated liver MRi as follow up) FINDINGS: Lower Chest: Normal. Hepatobiliary system Liver morphology: Normal size with smooth surface contour. Mild enlargement of the caudate lobe is noted. An ill-defined linear approximately 1.2 cm sized arterially hyperenhancing observation is suggested in hepatic segment 8 (image 32 in series 10) and it becomes isointense to the parenchyma in the venous and delayed phases, likely perfusion change/intrahepatic shunt. Otherwise no focal parenchymal lesions is seen. Steatosis/iron: The liver and spleen shows diffuse low signal intensity in T2-weighted sequence indicating secondary hemachromatosis/hemosiderosis, likely secondary to chronic renal failure and associated treatment. Spleen: Otherwise normal. Vasculature Portal and hepatic veins: Patent. Main portal vein measures 15 mm at amanda. Arterial anatomy: Conventional. Gallbladder and bile ducts Gallbladder: Absent. Bile ducts: The intrahepatic bile ducts are moderate to dilated. The common bile duct measuring 1.0 cm in diameter at the head of pancreas and common hepatic duct measures 14 mm near amanda. Note made of low insertion of the cystic duct. There is smooth tapering to the ampulla without filling defect or stricture. There is no significant change in size compared to previous MRI study. Possibility of stricture of the distal common bile duct from previous passed stones and procedures is to be considered. A differential diagnosis is ampullary dysfunction. There is no associated pancreatic duct dilation. Retroperitoneum Pancreas: The pancreas is atrophic. The pancreatic duct is nondilated. A 3 mm cyst within the body/tail of pancreas is unchanged (image 20 in series 3). Adrenals: Normal. Lymph nodes: No lymphadenopathy. Kidneys Innumerable predominantly T1 high signal intensity cysts are present throughout the left [place] kidney. The right kidney is not seen in the renal fossa. Limited images of the left iliac fossa shows the transplant kidney. No focal lesions or hydronephrosis seen. Gastrointestinal: Imaged bowel and mesentery are normal. Vascular findings: The aorta and its major branches are patent without focal stenosis. The left iliac vasculature is more tortuous than the right. Other: Levorotatory scoliosis of the thoracolumbar spine is present status post corrective hardware. Degenerative changes are seen throughout the spine. IMPRESSION: 1.A 3 mm cyst within the body/tail of the pancreas is unchanged. 2.Moderate intra and extrahepatic biliary ductal dilatation are not changed, possibly related to distal common bile duct stricture or sphincter dysfunction. No stones or obstructing lesions are seen. There is no significant change in the ductal dilation compared to previous study. 4.A 1.2 cm arterially hyperenhancing observation is suggested in hepatic segment 8 is again noted. And becomes isointense to parenchyma in the venous and delayed phases, likely perfusion changes/focal shunt. Otherwise no focal parenchymal lesions seen in the liver. 5.There are findings consistent with the secondary hemochromatosis/hemosiderosis, likely related to chronic renal failure and associated treatment. Tumor Board follow up: 04/06/2023 Presenter: Sourav Entry Analyst: None Interventional Radiologist: None Surgeon: Sourav Transplant Status: Kid txp eval in progress Hx: 63 year old female with a hx of CKD stage V, dialysis dependent; failed LD kidney txp; recent MRI reports ductal dilatation, s/p cholecystectomy; 1.2 cm arterially enhancing hepatic lesion. Original Tumor Detection Date: 03/01/2023 Original Tumor Size: MRI Hepatobiliary system Liver morphology: Normal size with smooth surface contour. Mild enlargement of the caudate lobe is noted. An ill-defined linear approximately 1.2 cm sized arterially hyperenhancing observation is suggested in hepatic segment 8 (image 32 in series 10) and it becomes isointense to the parenchyma in the venous and delayed phases, likely perfusion change/intrahepatic shunt. Otherwise no focal parenchymal lesions is seen. Steatosis/iron: The liver and spleen shows diffuse low signal intensity in T2-weighted sequence indicating secondary hemachromatosis/hemosiderosis, likely secondary to chronic renal failure and associated treatment. Bile ducts: The intrahepatic bile ducts are moderate to dilated. The common bile duct measuring 1.0 cm in diameter at the head of pancreas and common hepatic duct measures 14 mm near amanda. Note made of low insertion of the cystic duct. There is smooth tapering to the ampulla without filling defect or stricture. There is no significant change in size compared to previous MRI study. Possibility of stricture of the distal common bile duct from previous passed stones and procedures is to be considered. A differential diagnosis is ampullary dysfunction. There is no associated pancreatic duct dilation. Previous Intervention/Treatment: None Question: Review MRI and discuss Labs: CMP Latest Reference Range & Units 11/07/22 12:06 Chloride 98 - 107 mmol/L 104 CO2 22 - 29 mmol/L 17 (L) Anion Gap 8 - 18 16 BUN 7 - 26 mg/dL 16 Creatinine 0.56 - 0.96 mg/dL 4.21 (H) eGFR >=90 mL/min/1.73 m2 11 (L) Glucose 70 - 115 mg/dL 112 Calcium 8.4 - 10.2 mg/dL 8.9 Magnesium 1.6 - 2.6 mg/dL 1.8 Phosphorus 2.9 - 5.1 mg/dL 3.9 BUN/Creatinine Ratio 7 - 23 4 (L) Alkaline Phosphatase 40 - 150 U/L 68 ALT 5 - 55 U/L 11 AST 5 - 34 U/L 23 Protein Total 6.0 - 8.3 g/dL 7.0 Albumin 3.4 - 5.0 g/dL 3.4 Bilirubin Total 0.2 - 1.2 mg/dL 0.5 Osmolality Calculated 270 - 300 mOsm/kg 276 Albumin/Globulin Ratio 1.1 - 2.3 0.9 (L) Uric Acid 2.6 - 6.0 mg/dL 2.5 (L) CBC Latest Reference Range & Units 11/07/22 11:52 WBC 3.5 - 10.5 10 3/uL 5.9 RBC 3.80 - 5.20 10 6/uL 3.84 Hemoglobin 12.0 - 15.6 g/dL 11.7 (L) Hematocrit 35.0 - 45.0 % 37.7 MCV 80.7 - 98.3 fL 98.2 MCH 26.7 - 34.0 pg 30.5 MCHC 30.8 - 35.9 g/dL 31.0 Platelet Count 150 - 400 10 3/uL 178 AFP Not available Date of Imaging Discussed: See Above Imaging Findings & Impression: See Above Discussion: There is non-specific enhancement in segment 7/8 that may be focal shunting. There is some biliary dilation of unknown significance. Clinical Trial: none available Board Recommendations: Repeat imaging in 6 months. MRI: 08/31/2023 Findings: Lower Chest: Partially visualized pericardial fluid. Wedge shaped opacity in the lingula likely atelectasis. Hepatobiliary system Liver: Normal size with smooth surface contour. There are a few scattered peripheral wedge shaped arterially enhancing subcentimeter areas which become isointense to the parenchyma in the venous and delayed phases, likely vascular phenomena due to shunting. Steatosis: None. Varices: None. Spleen: Signal drop in the liver and spleen on in phase imaging likely due to iron deposition. Ascites: None. Vasculature Portal and hepatic veins: Patent. Arterial anatomy: Conventional. Retroperitoneum Adrenals: The subcentimeter right adrenal nodule is unchanged, too small to characterize. The left adrenal gland appears normal. Kidneys: Innumerable predominantly T1 high signal intensity cysts are present throughout the left [place] kidney suggestive of hemorrhagic/proteinaceous content. Some cysts show fluid/fluid levels. The right kidney is not seen. Limited images of the left iliac fossa show the transplant kidney. Lymph nodes: No lymphadenopathy. Gastrointestinal: Diverticulum of the duodenum. The remainder of the bowel is unremarkable. Other findings: Multilevel degenerative changes in the visualized spine. Scoliosis. Artifact from spinal hardware is present. MRCP: The gallbladder is surgically absent. Continued moderate dilation of the intrahepatic and extrahepatic bile ducts, with the extrahepatic bile ducts measuring up to 17 mm in diameter, previously measuring up to 15 mm. There is again smooth tapering to the ampulla without filling defect or stricture. Incidental note of low cystic duct insertion, unchanged from prior. No biliary ductal enhancement to suggest cholangitis. There are a few scattered 1-2 mm cysts in the pancreas, unchanged.There is signal drop in the pancreas on in phase imaging which may represent iron deposition. The pancreatic duct is nondilated. Impression: 1.Continued moderate dilation of the intrahepatic and extrahepatic bile ducts, with the extrahepatic bile ducts measuring up to 17 mm in diameter. There is again smooth tapering to the ampulla without filling defect or stricture. No bile duct enhancement is seen. 2.Signal drop on in phase imaging of the liver and spleen, likely representing secondary iron deposition given the distrubution, but there is also some pancreatic iron deposition, which suggests there may be some component of primary hemachromatosis. Recommend clinical correlation. Tumor Board: 09/19/2023 Findings: Enhancement is likely vascular shunting; There is a lot of iron Evidence of extrahepatic disease: NO Severe thrombocytopenia: No Platelet support: NO Discussion: There is nothing concerning; imaging unchanged from previous imaing Board Recommendations: No further follow up imaging needed CT a/p: 09/13/2024 Findings: Tubes and lines: Peritoneal dialysis catheter is coiled within the midline pelvis. Evaluation of visceral and vascular structures is degraded due to lack of intravenous contrast administration. Lower Chest: Tiny granuloma in the right lower lobe. Bibasilar subsegmental atelectasis present. Liver: Within the limitations of a noncontrast examination, the liver is unremarkable. Gallbladder and Bile Ducts: The gallbladder is absent. Spleen: Multiple calcified granulomas are noted in the spleen, likely sequelae of prior granulomatous disease. Pancreas: Normal. Adrenals: Subcentimeter right adrenal nodule measuring 7 mm is too small to characterize but likely an adenoma. Kidneys: Right kidney is not seen. The left kidney is atrophic with multiple cysts consistent with end-stage renal disease. Some of these cysts have hyperdense material likely resenting underlying hemorrhagic/proteinaceous content. Gastrointestinal: The stomach and visualized loops of large and small bowel are unremarkable. Normal appendix. Mesentery/Peritoneum/Retroperitoneum: Small volume pelvic free fluid which is likely residual peritoneal dialysate. Peritoneal dialysis catheter present. Pelvis: Normal.The uterus is absent. There is a left pelvic transplanted kidney, evaluation is limited by lack of IV contrast. Vasculature: Atherosclerotic calcification of the aorta and its branch vessels. Minimal atherosclerotic disease noted in the external iliac arteries. Bones: Bone windows demonstrate no suspicious lytic or blastic lesions. Kyphoscoliotic deformity of the thoracolumbar spine. Posterior metallic spinal josemanuel is seen. Soft tissues: Postsurgical changes to the anterior abdominal wall. Impression: 1.Right kidney is not seen. The left kidney is atrophic with multiple cysts consistent with end-stage renal disease. 2.There is a left pelvic transplanted kidney, evaluation is limited by lack of IV contrast. 3.Subcentimeter nodule in the right adrenal gland is too small to characterize but likely an adenoma. 4.No acute process in the abdomen or pelvis. Renal Txp US: 04/24/2022 COMPARISON: Renal transplant ultrasound dated 12/13/2021 FINDINGS: Kidney size: 11.1 x 4.3 x 4.9 cm (previously 10.9 x 4.8 x 4.4 cm) Kidney volume: 122 mL (previously 121 mL) Superior pole resistive index: 0. 66, previously 0.72 Mid kidney resistive index: 0. 71, previously 0.67 Inferior pole resistive index: 0. 57, previously 0.80 Main renal artery resistive index: 0. 93, previously 0.84 Renal artery anastomosis resistive index: 0. 94, previously 0.80 Peak systolic velocity at the renal artery hilum: 36 cm/s, previously 76 cm/s Peak systolic velocity of the main renal artery: 297-312 cm/s, previously 166 cm/s Peak systolic velocity of the renal artery anastomosis: 206 cm/s, previously 130.3 cm/s Peak systolic velocity of the iliac artery adjacent to the anastomosis: 205 cm/s, previously 137cm/s Perfusion is seen in all renal segments. The initial systolic upstroke is brisk. The renal vein is patent. Renal echogenicity is normal. There is no evidence of a solid renal mass, renal calculi, or hydronephrosis. No perinephric fluid is present. IMPRESSION: 1.Normal sonographic appearance of the transplant kidney. 2.Interval increase in peak systolic velocities and resistive indices of the mid renal artery and renal artery anastomosis, with marked decrease at the renal artery hilum. Findings are concerning for stenosis in the renal artery. Dexa scan: 02/02/2022 FINDINGS: BONE MINERAL DENSITY (BMD) right femoral neck: osteopenia; T-score -1.8 BONE MINERAL DENSITY (BMD) left femoral neck: osteopenia; T-score -1.6 FRAX 10 year fracture risk was not due to prior vertebral fracture. Definitions: T-score = Standard Deviation Normal: A value for bone mineral density(BMD) within 1 standard deviation of the young adult reference mean. (T-score above -1) Low bone mass(osteopenia): A value for bone mineral density(BMD) more than 1 standard deviation below the young adult mean, but less than 2.5 standard deviations below the young adult mean. ( T-score between -1 and -2.5) Osteoporosis: A value for bone mineral density 2.5 standard deviations or more below the young adult mean. ( T-score at or below -2.5) Severe osteoporosis: Osteoporosis + the presence of one or more fragility Fractures. CT head w/o contrast: 10/21/2021 HISTORY: R51.9: Acute nonintractable headache, unspecified headache type TECHNIQUE: CT of the head was performed without contrast followed by axial and coronal reconstruction of images, according to the standard protocol. COMPARISON: None. FINDINGS: No acute intra- or extra-axial hemorrhage is identified. There is mild cerebral volume loss. The ventricles are not dilated. The basilar cisterns are patent. No mass effect or midline shift is seen. There is an age indeterminate lacunar infarction of anterior limb of left internal capsule (series 3, image 18). The cedillo-white matter differentiation is normal. No white matter changes are evident to indicate chronic ischemia. There is vascular stent in the left carotid siphon. Other than bilateral cataract extractions, the orbital contents are normal and symmetric. The imaged paranasal sinuses, middle ear cavities and mastoid air cells are clear. No acute fracture is identified. IMPRESSION: 1. No acute intracranial process. 2. Vascular stent within the left carotid siphon. 3. Age indeterminate lacunar infarction of anterior limb of left internal capsule. LE arterial doppler: 01/10/2022 PPD: 11/07/2022 - quant gold negative Colonoscopy: Pathology report: Mammogram: 06/19/2024 Pap: GIGI with SBO 11/21/2000 - records scanned in under media Pathology: Panorex/Dental: SW: 12/31/2024 Clinical Social Work Impression: It is the impression of this social work assistant that Brandy Smith has several positive factors for Kidney transplant candidacy from a psychosocial perspective. Patient appears to have appropriate knowledge of illness. Patient has sufficient insurance coverage and stable financial situation for post transplant needs. No concerns regarding substance abuse, legal issues, or mental health needs. Patient has adequate support system and appropriate discharge plan. Plan: police worker to provide supportive services as needed. Patient remains a reasonable candidate for transplant from a psychosocial perspective. Psychiatric Consult Recommended: No Transplant Deicer Repairer Pneumatic: Naima Rocha LMSW Abdominal Transplant Deicer Repairer Pneumatic [phone] Annual Transplant Caregiver Confirmation Note Caregiver Confirmation Date Primary Name of Primary: Mike Smith Relationship: Spouse - Confirmed during initial assessment - TIRE AND TUBE REPAIRER form received on 12/22/22 Secondary Name of Secondary: Carline White Relationship: Daughter Confirmed no changes in caregivers or their contact information RD: 12/22/2023 Transplant Nutrition Evaluation BMI: Body mass index is 29.6 kg/m . BMI Range: Overweight Pt is considered to be a good candidate for a Kidney Transplant from a Nutrition standpoint. s/p LUR txp 09/2018 Waist Circumference (Kidney) (2022) 39.5 Wt History: Pt has lost about 15 lbs. Pt is not as hungry. Explained to pt that PD deliver about 500 Dextrose kcal and pt may not be able feel as hungry. Height: 161.3 cm (5' 3.5 ) Weight: 77.1kg (169 lb 15.6 oz) BMI: Body mass index is 29.6 kg/m . BMI Range: Obese Class 1 IBW/lb (Calculated) Female: 117.5, Monitoring: Weight Diet Compliance Re-Evaluation: Annual f/u if listed or per Transplant Team Referral Pauline Montes, JACK/LD Items Still Pending: A-V fistula 10/13/2022 Preoperative examination 08/30/2022 Assessment & Plan (08/30/2022 4:53 PM CONTAINER WASHER): Principal issue for the consultation today. Patient does not have symptoms or findings concerning for ACS. Although her exertional tolerance is probably around or less than 4 METs, the proposed surgery (AVF), is not a high risk surgery. If it can be done with out GA, I would suggest proceeding with surgery. However, if GA is needed, then getting a stress test would be reasonable. I would suggest dobutamine stress echo. 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 in 11/201804/23/2022 History of parathyroidectomy 04/23/2022 RASHEED (acute kidney injury) 04/22/2022 Kidney transplant rejection 01/27/2022 Orthostatic hypotension 10/27/2021 Type 2 diabetes mellitus wit h diabetic chronic kidney disease, unspecified CKD stage, unspecified whether assisted insulin use 10/20/2021 Hyperparathyroidism 10/20/2021 Stage 3b chronic kidney disease with nephrotic s yndrome 10/20/2021 Overview (05/11/2022): Baseline SCr: 1.8-2.0, 2.2, 2.7, 3.7, 3.1, 3.8 UPC: 2, 5, 8.2, 11.4, 11.9 g/g Parathyroid adenoma 09/21/2021 History of gout 09/21/2021 Kidney transplanted, S/P LUR-TXP in 10/13/2018 Overview (04/27/2022): S/P LUR-TXP () in 10/13/18. H/O ACR in early post TXP. On Belatacept + low dose Tac + low dose MPA ACR 1A x 2 and borderline ACR (in Oct & December 2018). TXP biopsy in 01/27/22: C4D negative chronic active AMR, Transplant glomerulopathy, 20-30% IFTA, 2 out of 11 Glomerulosclerosis + Arteriolar hyalinosis, CNI Tox. DSA negative. Rxed with SoluMedrol IV 500, 250, 125 mg, then PO Prednisone 5 mg Qd, increase Tac 1 mg in am, 0.5 mg in pm. 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 DSA negative. Rxed with SoluMedrol IV 500 mg X3, IVIg 500 mg/kg X4 days. Myfortic increased to 540 mg/360, start ACTHar 40 Uits SC twice a week to be gradually increased to 80 Units twice a week. Hypertension 11/19/2020 Assessment & Plan (01/17/2023 10:59 PM CDT): BP in clinic today is appropriate. Continue current management. 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 Hyperglycemia 12/21/2018 Hypophosphatemia 12/21/2018 Immunosuppression 12/21/2018 Retroperitoneal hemorrhage 12/15/2018 Diplopia 12/13/2018 Nonruptured cerebral aneurysm 12/13/2018 Aneurysm of internal carotid artery 12/10/2018 CAD (coronary atherosclerotic disease) 9 Primary localized osteoarthrosis of lower leg Primary osteoarthritis of right shoulder Long-term use of immunosuppressant medication Resolved Problems Problem Noted Date Diagnosed Date Resolved Date Acute nonintractable headache 10/21/2021 10/22/2021 Non-intractable vomiting 10/21/2021 Personal history of COVID-19 10/21/2021 10/22/2021 Encounters Date Type Department Care Team Description 01/16/2025 2:16 PM CDT - 01/16/2025 11:59 PM CDT Hospital Encounter [facility] Imaging Services - Radiology [address] [place] [id number] Jr Obregon MD Discharge Disposition: Home or Self Care 01/16/2025 2:16 PM CDT - 01/16/2025 11:59 PM CDT Hospital Encounter [facility] Imaging Services - Radiology [address] [place] [address] Jr Obregon MD Discharge Disposition: Home or Self Care 01/16/2025 2:10 PM CDT - 01/16/2025 2:15 PM CDT Hospital Encounter [facility] Imaging Services - Radiology [address] [place] [address] Jr Obregon MD Discharge Disposition: Home or Self Care 01/16/2025 1:15 PM CDT Office Visit [facility] Health Pain Care [address] [place], [place] [id number] [address] [place] [phone] Jr Obregon MD Primary osteoarthritis of both shoulders (Primary Dx); Sacroiliitis; Status post lumbar spinal fusion 01/15/2025 10:41 AM CDT - 01/15/2025 11:59 PM CDT Hospital Encounter [facility] [address] [place] [address] Jr Obregon MD Discharge Disposition: Home or Self Care 01/15/2025 Travel 12/31/2024 Telephone [facility] TRANSPLANT [address] [place] [phone] Lilian Sky RN Kidney Transplant Evaluation 12/30/2024 Telephone [facility] TRANSPLANT [address] [place] [phone] Elvia Alaniz CPC Kidney Transplant Evaluation 12/25/2024 2:21 PM CDT - 12/25/2024 11:59 PM CDT Hospital Encounter [facility] Pain Care [address] [place] [address] Jr Obregon MD Discharge Disposition: Home or Self Care 12/25/2024 Orders Only [facility] [address] [place] [address] Jr Obregon MD Primary osteoarthritis of both knees 12/25/2024 Orders Only [facility] [address] [place] [address] Jr Obregon MD Primary osteoarthritis of both knees 12/25/2024 Travel 12/24/2024 11:13 AM CDT - 12/24/2024 11:59 PM CDT Hospital Encounter [facility] DIAGNOSTIC RAD OP [address] [place] [phone] Fred Jo MD Discharge Disposition: Home or Self Care 12/24/2024 9:44 AM CDT - 12/24/2024 11:12 AM CDT Hospital Encounter [facility] ECHO [address] [place] [address] Abundio Benjamin MD Discharge Disposition: Home or Self Care 12/24/2024 8:30 AM CDT - 12/24/2024 9:43 AM CDT Hospital Encounter [facility] ECHO [address] [place] [address] Abundio Benjamin MD Discharge Disposition: Home or Self Care 12/24/2024 7:52 AM CDT - 12/24/2024 8:29 AM CDT Hospital Encounter [facility]ION [facility] [address] [place] [address] Rina Tracy PA-C Discharge Disposition: Home or Self Care 12/24/2024 Travel 12/04/2024 Lab Requisition [facility] MAIN LAB [address] [place] [address] Quintin Snow MD 12/02/2024 12:24 PM CDT - 12/02/2024 11:59 PM CDT Hospital Encounter [facility] Imaging Services - Radiology [address] [place] [address] Jr Obregon MD Discharge Disposition: Home or Self Care 12/02/2024 11:45 AM CDT Office Visit [facility] Pain Care [address] [facility] [address] [place] [address] Jr Obregon MD Primary osteoarthritis of both knees (Primary Dx) 12/02/2024 Telephone [facility] TRANSPLANT [address] [place] [address] Lilian Sky, RN Kidney Transplant Evaluation 12/02/2024 Travel 11/14/2024 Telephone [facility] TRANSPLANT [address] [place] [address] Lilian Sky, RN Kidney Transplant Evaluation 11/05/2024 Lab Requisition [facility] MAIN LAB [address] [place] [address] Quintin Snow MD 10/28/2024 Telephone [facility] TRANSPLANT [address] [place] [address] Lilian Sky RN Kidney Transplant Evaluation from Last 3 Months Immunizations Immunization Administration Dates Next Due INFLUENZA VACCINE, HIGH-DOSE , QUADR. (FLUZONE HIGH-DOSE QUADRIVALENT; 65Y+), 0.7 ML (HD-IIV4) 08/30/2019 INFLUENZA VACCINE, QUADR. (A FLURIA, FLUZONE QUADRIVALENT; 6MO+) (IIV4) 07/03/2020 INFLUENZA VACCINE, QUADR. (F LUZONE; FLULAVAL; FLUARIX; AFLURIA QUADRIVALENT; 6MO+), 0.5 ML (IIV4) 07/16/2021 PNEUMOCOCCAL PPSV23 12/14/2021 Pneumococcal Pcv13 Conj 09/21/2021 TDAP, HISTORIC VACCINE 02/24/2022 Zoster Hzv Vacc Recombinant Inj Im 04/01/2022 Family History Medical History Relation Name Comments Atrial Fibrillation Brother Cancer - Prostate Brother High Cholesterol Brother Hypertension Brother Other Father PVD with graft, ? 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 Gender Identity Not on file Sexual Orientation Not on file Last Filed Vital Signs Vital Sign Reading Time Taken Comments Blood Pressure 154/100 01/16/2025 1:23 PM CDT Pulse 97 01/16/2025 1:23 PM CDT Temperature 36.7 C (98 F) 01/15/2025 10:54 AM CDT Respiratory Rate 16 01/16/2025 1:23 PM CDT Oxygen Saturation 97% 12/25/2024 3:00 PM CDT Inhaled Oxygen Concentration - - Weight 75.8 kg (167 lb) 01/16/2025 1:23 PM CDT Height 161.3 cm (5' 3.5 ) 12/24/2024 10:06 AM CD T Body Mass Index 29.12 12/24/2024 10:06 AM CDT Plan of Treatment Upcoming Encounters Date Type Department Care Team (Late st Contact Info) Description 01/27/2025 1:00 PM CDT Clinical Support [facility] TX[facility] [address] [place] [address] Health Maintenance Due Date Last Done Comments COLOGUARD (AGES 45-75) - COLON CA SCREENING 1959 CT COLONOGRAPHY - COLON CA SCREENING 1959 FIT - COLON CA SCREENING 1959 FLEX SIG - COLON CA SCREENING 1959 PAP SMEAR 1959 HEPATITIS B VACCINE (1 of 3 - Risk Dialysis 4-dose series) 1979 Respiratory Syncytial Virus (RSV) Vaccine Pt: or over 60 yrs (1 - Risk 60-74 years 1-dose series) 2019 DIABETES RETINOPATHY SCREENING 10/20/2021 DIABETES-FOOT EXAM WITH MONOFILAMENT 10/20/2021 ZOSTER VACCINE (2 of 2) 05/27/2022 04/01/2022 MEDICARE AWV 12 MONTHS 12/14/2022 12/14/2021 MAMMOGRAM 11/09/2023 11/09/2021 COVID-19 VACCINE ( season) 2024 02/24/2022, 09/15/2021, 04/28/2021, Additional history exists DEPRESSION SCREENING 09/25/2024 02/14/2022 INFLUENZA VACCINE (Season Ended) 2025 07/16/2021, 07/03/2020, 08/30/2019 DIABETES-HGB A1C 06/25/2025 12/24/2024, , 12/21/2023, Additional history exists PNEUMOCOCCAL VACCINE 50+ (3 of 3 - PPSV23, PCV20 or PCV21) 12/14/2026 12/14/2021, 09/21/2021 COLON MONITORING 11/17/2031 11/17/2021 COLONOSCOPY - COLON CA SCREENING 11/17/2031 11/17/2021 Colorectal Cancer Screening 11/17/2031 DTAP/TDAP/TD VACCINES (2 - Td or Tdap) 02/25/2032 02/24/2022 BONE DENSITY TESTING Completed 02/02/2022 HEPATITIS C SCREENING Completed 12/24/2024 , 12/21/2023, 11/07/2022, Additional history exists HIV SCREENING Completed 12/24/2024, 11/24, 11/07/2022, Additional history exists HIB VACCINE Aged Out No longer eligi ble based on patient's age to complete this topic HPV VACCINE Aged Out No longer eligi ble based on patient's age to complete this topic MENINGOCOCCAL (Group B) VACCINE SHARED DECISION-MAKING Aged Out No longer eligible based on patient's age to complete this topic MENINGOCOCCAL GROUPS A/C/Y/W VACCINE Aged Out No longer eligible based on patient's age to complete this topic Goals Goal Patient Goal Type Associated Problems Recent Progress Patient-Stated? Author Blood Pressure < 140/90 Blood Pressure 154/100(01/16 1:23 PM CDT) No Lilian Sky paddock judge Management General On track( 12:38 PM CDT) No Tabitha Vizcarra, RN [...] one week prior to your last dose Medical Devices Implanted Type Area Shell Plater Device Identifier Shelf Expiration Date Model / Serial / Lot Kit Durathane Drflw Embosafe Chrnc Dlys Implanted:Qty: 1 on 06/08/2022 at [facility] [employer] 10/25/2024 [id number] / / [id number] Graft Vasc 4-7mm 45cm Hep Propaten Ptfe - [id number] Implanted:Qty: 1 on 12/07/2022 by Abundio Benjamin MD at [facility] Right: Arm [employer] [id number] 06/15/2026 [id number] / [id number] / Stent Eprsth Sprfc Fem Art Ilium 5cm 8mm - [id number] Implanted:Qty: 1 on 08/04/2023 by Flakito Yu MD at [facility] Right: Arm [employer] 05/09/2026 [id number] / [id number] / Kit Durathane Drflw Embosafe Chrnc Dlys Implanted:Qty: 1 on 08/24/2023 at [facility] Left: Chest [employer] 01/22/2026 [id number] Description:[facility] by Dr. Rashid Perea Durathane Drflw Embosafe Chrnc Dlys Implanted:Qty: 1 on 09/13/2023 at [facility] Left: Chest [employer] 09/24/2025 [id number] Description:implaned by Dr. Mike Perioneal Dialysis Catheter Implanted:Qty: 1 on 09/27/2023 by Fred Jo MD at [facility] Left: Abdomen 06/22/2027 [id number] / / [id number] Description:Peritoneal Dialy sis Catheter, 57cm, Curl Cath, 2 Cuff Procedures Procedure Name Priority Date/Time Associated Diagnosis Comments XR SACRUM AND COCCYX Routine 01/16/2025 2:44 PM CDT Sacroiliitis Status post lumbar spinal fusion XR LUMBAR SPINE 2 OR 3VW Routine 01/16/2025 2:33 PM CDT Sacroiliitis Status post lumbar spinal fusion XR SHOULDER BILAT 2VW OR MORE Routine 01/16/2025 2:22 PM CDT Primary osteoarthritis of both shoulders PAIN MANAGEMENT PROCEDURE TIME Routine 01/15/2025 11:19 AM CDT Arthritis of knee PAIN MANAGEMENT PROCEDURE TIME Routine 12/25/2024 3:02 PM CDT Localized osteoarthrosis, lower leg XR CHEST 2VW Routine 12/24/2024 11:15 AM CDT Pre-kidney transplant, listed ESRD (end stage renal disease) (HCC) Dependence on peritoneal dialysis Type 2 diabetes mellitus with chronic kidney disease on chronic dialysis, unspecified whether predatory animal exterminator insulin use ([facility]) Hypertension, unspecified type Takotsubo cardiomyopathy Kidney replaced by transplant ([facility]) Recurrent UTI IPMN (intraductal papillary mucinous neoplasm) Tachycardia ECHO STRESS DOBUTAMINE W CONTRAST Routine 12/24/2024 11:02 AM CDT Pre-kidney transplant, listed ESRD (end stage renal disease) (HCC) Dependence on peritoneal dialysis Type 2 diabetes mellitus with chronic kidney disease on chronic dialysis, unspecified whether assisted insulin use ([facility]) Hypertension, unspecified type Takotsubo cardiomyopathy Kidney replaced by transplant ([facility]) Recurrent UTI IPMN (intraductal papillary mucinous neoplasm) Tachycardia ECHO COMPLETE Routine 12/24/2024 9:25 AM CDT Pre-kidney transplant, listed ESRD (end stage renal disease) (HCC) Type 2 diabetes mellitus with chronic kidney disease on chronic dialysis, unspecified whether predatory animal exterminator insulin use ([facility]) Hypertension, unspecified type Takotsubo cardiomyopathy URINALYSIS REFLEX MICROSCOPIC REFLEX CULTURE Routine 12/24/2024 8:25 AM CDT Pre-kidney transplant, listed ESRD (end stage renal disease) (HCC) Dependence on peritoneal dialysis Type 2 diabetes mellitus with chronic kidney disease on chronic dialysis, unspecified whether assisted insulin use (HCC) Hypertension, unspecified type Takotsubo cardiomyopathy 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) Recurrent UTI IPMN (intraductal papillary mucinous neoplasm) Tachycardia PROTEIN CREATININE RATIO URINE RANDOM PNL Routine 12/24/2024 8:25 AM CDT Pre-kidney transplant, listed ESRD (end stage renal disease) (HCC) Dependence on peritoneal dialysis Type 2 diabetes mellitus with chronic kidney disease on chronic dialysis, unspecified whether predatory animal exterminator insulin use (HCC) Hypertension, unspecified type Takotsubo cardiomyopathy 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) Recurrent UTI IPMN (intraductal papillary mucinous neoplasm) Tachycardia QUANTIFERON-TB GOLD PLUS 4-TUBE Routine 12/24/2024 8:25 AM CDT Pre-kidney transplant, listed ESRD (end stage renal disease) (HCC) Dependence on peritoneal dialysis Type 2 diabetes mellitus with chronic kidney disease on chronic dialysis, unspecified whether predatory animal exterminator insulin use (HCC) Hypertension, unspecified type Takotsubo cardiomyopathy 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) Recurrent UTI IPMN (intraductal papillary mucinous neoplasm) Tachycardia HEPATITIS B SURFACE ANTIBODY QUANT STAT 12/24/2024 8:24 AM CDT Pre-kidney transplant, listed ESRD (end stage renal disease) (HCC) 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 (HCC) History of malignant neoplasm of endocrine gland Pre-transplant evaluation for kidney transplant Anemia of renal disease 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 RASHEED (acute kidney injury) 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 Kidney transplanted, S/P LUR-TXP in 10/13/2018 CANCER ANTIGEN (CA) 19-9 Routine 12/24/2024 8:24 AM CDT Pre-kidney transplant, listed ESRD (end stage renal disease) (HCC) Dependence on peritoneal dialysis IPMN (intraductal papillary mucinous neoplasm) Liver lesion STRONGYLOIDES ANTIBODY IGG Routine 12/24/2024 8:24 AM CDT Pre-kidney transplant, listed ESRD (end stage renal disease) (HCC) Dependence on peritoneal dialysis Type 2 diabetes mellitus with chronic kidney disease on chronic dialysis, unspecified whether assisted insulin use (HCC) Hypertension, unspecified type Takotsubo cardiomyopathy 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) Recurrent UTI IPMN (intraductal papillary mucinous neoplasm) Tachycardia TOXOPLASMA GONDII ANTIBODY IGG Routine 12/24/2024 8:24 AM CDT Pre-kidney transplant, listed ESRD (end stage renal disease) (HCC) Dependence on peritoneal dialysis Type 2 diabetes mellitus with chronic kidney disease on chronic dialysis, unspecified whether predatory animal exterminator insulin use (HCC) Hypertension, unspecified type Takotsubo cardiomyopathy 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) Recurrent UTI IPMN (intraductal papillary mucinous neoplasm) Tachycardia HIV-1 HIV-2 ANTIBODY + HIV P24 AG PANEL Routine 12/24/2024 8:24 AM CDT Pre-kidney transplant, listed ESRD (end stage renal disease) (HCC) Dependence on peritoneal dialysis Type 2 diabetes mellitus with chronic kidney disease on chronic dialysis, unspecified whether assisted insulin use (HCC) Hypertension, unspecified type Takotsubo cardiomyopathy 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) Recurrent UTI IPMN (intraductal papillary mucinous neoplasm) Tachycardia OPIATES BLOOD Routine 12/24/2024 8:24 AM CDT Pre-kidney transplant, listed ESRD (end stage renal disease) (HCC) Dependence on peritoneal dialysis Type 2 diabetes mellitus with chronic kidney disease on chronic dialysis, unspecified whether assisted insulin use (HCC) Hypertension, unspecified type Takotsubo cardiomyopathy 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) Recurrent UTI IPMN (intraductal papillary mucinous neoplasm) Tachycardia COCAINE METABOLITE BLOOD QUANT Routine 12/24/2024 8:24 AM CDT Pre-kidney transplant, listed ESRD (end stage renal disease) (HCC) Dependence on peritoneal dialysis Type 2 diabetes mellitus with chronic kidney disease on chronic dialysis, unspecified whether predatory animal exterminator insulin use (HCC) Hypertension, unspecified type Takotsubo cardiomyopathy 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) Recurrent UTI IPMN (intraductal papillary mucinous neoplasm) Tachycardia AMPHETAMINE BLOOD CONFIRMATION Routine 12/24/2024 8:24 AM CDT Pre-kidney transplant, listed ESRD (end stage renal disease) (HCC) Dependence on peritoneal dialysis Type 2 diabetes mellitus with chronic kidney disease on chronic dialysis, unspecified whether assisted insulin use (HCC) Hypertension, unspecified type Takotsubo cardiomyopathy 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) Recurrent UTI IPMN (intraductal papillary mucinous neoplasm) Tachycardia NICOTINE + METABOLITES BLOOD Routine 12/24/2024 8:24 AM CDT Pre-kidney transplant, listed ESRD (end stage renal disease) (HCC) Dependence on peritoneal dialysis Type 2 diabetes mellitus with chronic kidney disease on chronic dialysis, unspecified whether assisted insulin use (HCC) Hypertension, unspecified type Takotsubo cardiomyopathy 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) Recurrent UTI IPMN (intraductal papillary mucinous neoplasm) Tachycardia SYPHILIS ANTIBODY CASCADING REFLEX Routine 12/24/2024 8:24 AM CDT Pre-kidney transplant, listed ESRD (end stage renal disease) (HCC) Dependence on peritoneal dialysis Type 2 diabetes mellitus with chronic kidney disease on chronic dialysis, unspecified whether assisted insulin use (HCC) Hypertension, unspecified type Takotsubo cardiomyopathy 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) Recurrent UTI IPMN (intraductal papillary mucinous neoplasm) Tachycardia HEMOGLOBIN A1C Routine 12/24/2024 8:24 AM CDT Pre-kidney transplant, listed ESRD (end stage renal disease) (HCC) Dependence on peritoneal dialysis Type 2 diabetes mellitus with chronic kidney disease on chronic dialysis, unspecified whether assisted insulin use (HCC) Hypertension, unspecified type Takotsubo cardiomyopathy 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) Recurrent UTI IPMN (intraductal papillary mucinous neoplasm) Tachycardia HEPATITIS A ANTIBODY Routine 12/24/2024 8:24 AM CDT Pre-kidney transplant, listed ESRD (end stage renal disease) (HCC) Dependence on peritoneal dialysis Type 2 diabetes mellitus with chronic kidney disease on chronic dialysis, unspecified whether predatory animal exterminator insulin use (HCC) Hypertension, unspecified type Takotsubo cardiomyopathy 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) Recurrent UTI IPMN (intraductal papillary mucinous neoplasm) Tachycardia HEPATITIS C ANTIBODY Routine 12/24/2024 8:24 AM CDT Pre-kidney transplant, listed ESRD (end stage renal disease) (HCC) Dependence on peritoneal dialysis Type 2 diabetes mellitus with chronic kidney disease on chronic dialysis, unspecified whether predatory animal exterminator insulin use (HCC) Hypertension, unspecified type Takotsubo cardiomyopathy 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) Recurrent UTI IPMN (intraductal papillary mucinous neoplasm) Tachycardia HEPATITIS B CORE ANTIBODY TOTAL Routine 12/24/2024 8:24 AM CDT Pre-kidney transplant, listed ESRD (end stage renal disease) (HCC) Dependence on peritoneal dialysis Type 2 diabetes mellitus with chronic kidney disease on chronic dialysis, unspecified whether predatory animal exterminator insulin use (HCC) Hypertension, unspecified type Takotsubo cardiomyopathy 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) Recurrent UTI IPMN (intraductal papillary mucinous neoplasm) Tachycardia HEPATITIS B SURFACE ANTIGEN W RFLX CONFIRMATION Routine 12/24/2024 8:24 AM CDT Pre-kidney transplant, listed ESRD (end stage renal disease) (HCC) Dependence on peritoneal dialysis Type 2 diabetes mellitus with chronic kidney disease on chronic dialysis, unspecified whether predatory animal exterminator insulin use (HCC) Hypertension, unspecified type Takotsubo cardiomyopathy 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) Recurrent UTI IPMN (intraductal papillary mucinous neoplasm) Tachycardia LIPID PROFILE Routine 12/24/2024 8:24 AM CDT Pre-kidney transplant, listed ESRD (end stage renal disease) (HCC) Dependence on peritoneal dialysis Type 2 diabetes mellitus with chronic kidney disease on chronic dialysis, unspecified whether assisted insulin use (HCC) Hypertension, unspecified type Takotsubo cardiomyopathy 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) Recurrent UTI IPMN (intraductal papillary mucinous neoplasm) Tachycardia PTH INTACT W/O CALCIUM Routine 12/24/2024 8:24 AM CDT Pre-kidney transplant, listed ESRD (end stage renal disease) (HCC) Dependence on peritoneal dialysis Type 2 diabetes mellitus with chronic kidney disease on chronic dialysis, unspecified whether predatory animal exterminator insulin use (HCC) Hypertension, unspecified type Takotsubo cardiomyopathy 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) Recurrent UTI IPMN (intraductal papillary mucinous neoplasm) Tachycardia PHOSPHORUS BLOOD Routine 12/24/2024 8:24 AM CDT Pre-kidney transplant, listed ESRD (end stage renal disease) (HCC) Dependence on peritoneal dialysis Type 2 diabetes mellitus with chronic kidney disease on chronic dialysis, unspecified whether predatory animal exterminator insulin use (HCC) Hypertension, unspecified type Takotsubo cardiomyopathy 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) Recurrent UTI IPMN (intraductal papillary mucinous neoplasm) Tachycardia VITAMIN D 25-HYDROXY Routine 12/24/2024 8:24 AM CDT Pre-kidney transplant, listed ESRD (end stage renal disease) (HCC) Dependence on peritoneal dialysis Type 2 diabetes mellitus with chronic kidney disease on chronic dialysis, unspecified whether assisted insulin use (HCC) Hypertension, unspecified type Takotsubo cardiomyopathy 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) Recurrent UTI IPMN (intraductal papillary mucinous neoplasm) Tachycardia URIC ACID BLOOD Routine 12/24/2024 8:24 AM CDT Pre-kidney transplant, listed ESRD (end stage renal disease) (HCC) Dependence on peritoneal dialysis Type 2 diabetes mellitus with chronic kidney disease on chronic dialysis, unspecified whether assisted insulin use (HCC) Hypertension, unspecified type Takotsubo cardiomyopathy 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) Recurrent UTI IPMN (intraductal papillary mucinous neoplasm) Tachycardia COMPREHENSIVE METABOLIC PANEL Routine 12/24/2024 8:24 AM CDT Pre-kidney transplant, listed ESRD (end stage renal disease) (HCC) Dependence on peritoneal dialysis Type 2 diabetes mellitus with chronic kidney disease on chronic dialysis, unspecified whether predatory animal exterminator insulin use (HCC) Hypertension, unspecified type Takotsubo cardiomyopathy 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) Recurrent UTI IPMN (intraductal papillary mucinous neoplasm) Tachycardia CBC W AUTO DIFFERENTIAL Routine 12/24/2024 8:24 AM CDT Pre-kidney transplant, listed ESRD (end stage renal disease) (HCC) Dependence on peritoneal dialysis Type 2 diabetes mellitus with chronic kidney disease on chronic dialysis, unspecified whether assisted insulin use (HCC) Hypertension, unspecified type Takotsubo cardiomyopathy 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) Recurrent UTI IPMN (intraductal papillary mucinous neoplasm) Tachycardia XR KNEE BILAT STANDING 1VW Routine 12/02/2024 12:44 PM CDT Primary osteoarthritis of both knees HOLD HLA SPECIMEN Routine 11/29/2024 10: 43 AM CONTAINER WASHER HOLD HLA SPECIMEN Routine 10/31/2024 2:5 4 PM CONTAINER WASHER DEXA BONE DENSITY AXIAL SKELETON Routine 02/02/2022 9:11 AM CDT Hypocalcemia Age-related osteoporosis with current pathological fracture, initial encounter Screening for osteoporosis Localized osteoporosis ([place]) COLONOSCOPY Routine 11/17/2021 MAMMOGRAM Routine 11/09/2021 from Last 3 Months or Most Recently Relevant to Health Maintenance Results * XR Sacrum And Coccyx (01/16/2025 2:44 PM CDT) Anatomical Region Laterality Modality Spine Computed Radiogr aphy 01/16/2025 3:20 PM CDT Impressions 01/16/2025 3:21 PM CDT IMPRESSION: No evidence of acute osseous abnormality. > Interpreting Provider: Griffin Baeza MD on 01/16/2025 3:21 PM Narrative 01/16/2025 3:21 PM CDT PROCEDURE: XR SACRUM AND COCCYX DATE/TIME OF EXAM: 01/16/2025 3:00 PM CLINICAL INFORMATION: None relevant/not provided if blank. Indication: M46.1: Sacroiliitis, not elsewhere classified Z98.1: Arthrodesis status Additional History: COMPARISON: None. FINDINGS: Partially imaged lumbosacral fusion construct and peritoneal dialysis catheter. The bones are diffusely demineralized. 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 Moderate sacroiliac arthritis. No displaced fractures are identified. Procedure Note Griffin Baeza MD - 01/16/2025 PROCEDURE: XR SACRUM AND COCCYX DATE/TIME OF EXAM: 01/16/2025 3:00 PM CLINICAL INFORMATION: None relevant/not provided if blank. Indication: M46.1: Sacroiliitis, not elsewhere classified Z98.1: Arthrodesis status Additional History: COMPARISON: None. FINDINGS: Partially imaged lumbosacral fusion construct and peritoneal dialysis catheter. The bones are diffusely demineralized. Irregularity andsclerosis of the pubic symphysis suggesting symphysitis. Moderate sacroiliac arthritis. No displaced fractures are identified. IMPRESSION: No evidence of acute osseous abnormality. > Interpreting Provider: Griffin Baeza MD on 01/16/2025 3:21 PM Jr Obregon MD DIAGNOSTIC IMAGING ORDERABLES Fi nal Result * XR Lumbar Spine 2 or 3Vw (01/16/2025 2:33 PM CDT) Anatomical Region Laterality Modality Spine Computed Radiogr aphy 01/16/2025 3:21 PM CDT Impressions 01/16/2025 3:24 PM CDT IMPRESSION: As above. > Interpreting Provider: Griffin Baeza MD on 01/16/2025 3:24 PM Narrative 01/16/2025 3:24 PM CDT PROCEDURE: XR LUMBAR SPINE 2 OR 3VW DATE/TIME OF EXAM: 01/16/2025 2:59 PM CLINICAL INFORMATION: None relevant/not provided if blank. Indication: M46.1: Sacroiliitis, not elsewhere classified Z98.1: Arthrodesis status Additional History: COMPARISON: None. FINDINGS: Bones are diffusely demineralized. Lumbar levoscoliosis status post T11-S1 instrumented fusion with a Burns josemanuel which appears fractured at the level of L2. Advanced multilevel degenerative disc and joint disease. Vertebral bodies are not well profiled in areas due to the curvature. Age-indeterminate multilevel compression deformities. Peritoneal dialysis catheter and surgical staple material overlies the pelvis. Cholecystectomy clips are noted. Rim calcified probable 17 mm splenic artery aneurysm. Procedure Note Griffin Baeza MD - 01/16/2025 PROCEDURE: XR LUMBAR SPINE 2 OR 3VW DATE/TIME OF EXAM: 01/16/2025 2:59 PM CLINICAL INFORMATION: None relevant/not provided if blank. Indication: M46.1: Sacroiliitis, not elsewhere classified Z98.1: Arthrodesis status Additional History: COMPARISON: None. FINDINGS: Bones are diffusely demineralized. Lumbar levoscoliosis status [id number] instrumented fusion with a Burns joesmanuel which appears fractured at the level of L2. Advanced multilevel degenerative disc and joint disease. Vertebral bodies are not well profiled in areas due to the curvature. Age-indeterminate multilevel compression deformities. Peritonealdialysis catheter and surgical staple material overlies the pelvis.Cholecystectomy clips are noted. Rim calcified probable 17 mm splenic artery aneurysm. IMPRESSION: As above. > Interpreting Provider: Griffin Baeza MD on 01/16/2025 3:24 PM Jr Obregon MD DIAGNOSTIC IMAGING ORDERABLES Fi nal Result * XR Shoulder Bilat 2Vw or More (01/16/2025 2:22 PM CDT) Anatomical Region Laterality Modality Upper Extremity Computed Radiogr aphy 01/16/2025 3:18 PM CDT Narrative 01/16/2025 3:21 PM CDT PROCEDURE: XR SHOULDER BILAT 2VW OR MORE DATE/TIME OF EXAM: 01/16/2025 2:59 PM CLINICAL INFORMATION: None relevant/not provided if blank. Indication: M19.011: Primary osteoarthritis, right shoulder M19.012: Primary osteoarthritis, left shoulder XR SHOULDER BILAT 2VW OR MORE HISTORY: M19.011: Primary osteoarthritis, right shoulder; M19.012: Primary osteoarthritis, left shoulder COMPARISON: 01/21/2021 FINDINGS/IMPRESSION: 1.Mild osteoarthritis of glenohumeral joint and minimal osteoarthritis of acromioclavicular joint on the left side have not significantly progressed in the interval. However, severe osteoarthritis of right acromioclavicular joint and glenohumeral joint have significantly progressed in the interval. 2.There are no acute fractures, dislocation, suspicious intrinsic bony lesions, acromioclavicular joint separation, or suspicious soft tissue abnormalities in either shoulder. 3.The height of subacromial space is normal, bilaterally. 4.A stable left-sided Port-A-Cath and a vascular stent in the medial aspect of upper right arm are noted. 5.The imaged ribs and imaged portion of the lung are unremarkable, bilaterally. > Interpreting Provider: Dwain Alcala MD on 01/16/2025 3:21 PM Procedure Note Dwain Alcala MD - 01/16/2025 PROCEDURE: XR SHOULDER BILAT 2VW OR MORE DATE/TIME OF EXAM: 01/16/2025 2:59 PM CLINICAL INFORMATION: None relevant/not provided if blank. Indication: M19.011: Primary osteoarthritis, right shoulder M19.012: Primary osteoarthritis, left shoulder XR SHOULDER BILAT 2VW OR MORE HISTORY: M19.011: Primary osteoarthritis, right shoulder; M19.012:Primary osteoarthritis, left shoulder COMPARISON: 01/21/2021 FINDINGS/IMPRESSION: 1.Mild osteoarthritis of glenohumeral joint and minimal osteoarthritisof acromioclavicular joint on the left side have not significantlyprogressed in the interval. However, severe osteoarthritis of rightacromioclavicular joint and glenohumeral joint have significantly progressed in theinterval. 2.There are no acute fractures, dislocation, suspicious intrinsic bony lesions, acromioclavicular joint separation, or suspicious soft tissue abnormalities in either shoulder. 3.The height of subacromial space is normal, bilaterally. 4.A stable left-sided Port-A-Cath and a vascular stent in the medialaspect of upper right arm are noted. 5.The imaged ribs and imaged portion of the lung are unremarkable, bilaterally. > Interpreting Provider: Dwain Alcala MD on 01/16/2025 3:21 PM Jr Obregon MD DIAGNOSTIC IMAGING ORDERABLES Fi nal Result * Pain Management Procedure Time (01/15/2025 11:19 AM CDT) Only the most recent of2 resultswithin the time period is included. Anatomical Region Laterality Modality Radio Fluoroscop y Narrative 01/15/2025 11:41 AM CDT Jr Obregon MD 01/15/2025 11:42 AM 01/15/2025 Fluoroscopically GuidedRight knee Joint Injection Dx: 17.10 - Osteoarthritis Knee Consent: The patient was identified in the holding area and the operative permit was explained and signed. I have discussed with the patient the risks, benefits, side effects and complications of a fluoroscopically guided knee joint injection. I have answered the patient's questions regarding the procedure and have given the patient the opportunity to refuse the procedure. I also have discussed alternative methods of treatment. The patient stated understanding of the procedure and wished to proceed with a fluoroscopically guided knee joint injection. Monitoring: The patient was taken to the fluoroscopic suite and placed on a C-arm table in the supine position. Noninvasive blood pressure, pulse oximetry, and an EKG tracing were used to monitor the patient continuously throughout the procedure. A nurse was in attendance for the duration of the procedure to carefully monitor the patient. Please refer to the nursing record for vital sign documentation and for any doses of sedatives and medications. I was present and gave the order for any medications given to the patient. Preparation: A sterile Chloroprep preparation and then a sterile drape were applied to the knee Procedure: Theright knee injection was performed on the side(s) mentioned above. The complained of pain with palpation over knee. Using fluoroscopic guidance, a 25 gauge 3.5 inch needle was carefully guided medial to the patella tendon into the medial joint space and 0.5 cc of Omnipaque (240mg/cc) was injected. Intraarticular spread was confirmed under direct fluoroscopy. There were no signs of intravascular injection with careful aspiration of the needle. A preservative free solution of dexamethasone 10 mg PF and 5 cc of 1 % lidocaine PF was injected into knee joint(s) indicated above. The needle was removed intact. The patient tolerated the procedure well and there were no complications. Recovery: The patient was taken to the recovery area where they remained in stable condition. Postprocedure instructions were given to the patient and a follow up appointment was confirmed. 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 Jr Obregon MD DIAGNOSTIC IMAGING ORDERABLES Fi nal Result * XR CHEST PA AND LATERAL (12/24/2024 11:15 AM CDT) Anatomical Region Laterality Modality Chest Digital Radiogra phy 12/25/2024 2:13 AM CDT Impressions 12/25/2024 2:14 AM CDT IMPRESSION: Left chest port with tip overlying the right atrium Spinal hardware is partially visualized. Right axillary vascular stent Surgical clips overlie the right upper quadrant. No focal consolidation, pneumothorax, or pleural effusion. Hilar structures and pulmonary vascular lung markings appeared within normal limits. Irregular contour of the right lateral border of the heart corresponding with a likely pericardial cyst noted on prior MRI of the abdomen on 04/27/2022. No displaced fractures identified. Dextrocurvature of the thoracic spine. > Interpreting Provider: Po Syed MD on 12/25/2024 2:14 AM Narrative 12/25/2024 2:14 AM CDT PROCEDURE: XR CHEST 2VW DATE/TIME OF EXAM: 12/24/2024 11:15 AM CLINICAL INFORMATION: None relevant/not provided if blank. 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 Procedure Note Po Syed MD - 12/25/2024 PROCEDURE: XR CHEST 2VW DATE/TIME OF EXAM: 12/24/2024 11:15 AM CLINICAL INFORMATION: None relevant/not provided if blank. 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 IMPRESSION: Left chest port with tip overlying the right atrium Spinal hardware is partially visualized. Right axillary vascular stent Surgical clips overlie the right upper quadrant. No focal consolidation, pneumothorax, or pleural effusion. Hilar structures and pulmonary vascular lung markings appeared within normal limits. Irregular contour of the right lateral border of the heart corresponding with a likely pericardial cyst noted on prior MRI of the abdomen on 04/27/2022. No displaced fractures identified. Dextrocurvatureof the thoracic spine. > Interpreting Provider: Po Syed MD on 12/25/2024 2:14 AM Fred Jo MD DIAGNOSTIC IMAGING ORDAmilcar DON Final Result * ECHO STRESS DOBUTAMINE W CONTRAST (12/24/2024 11:02 AM CDT) LV biplane EF 71.183 % SSM CV FUJI PACS LV A2C EF 71.691 % SSM CV FUJ I PACS LV A4C EF 71.837 % SSM CV FUJ I PACS LV EDV A2C 75.662 ml SSM CV FU JI PACS LV EDV A4C 93.956 ml SSM CV FU JI PACS LV ESV A2C 21.419 ml SSM CV FU JI PACS LV ESV A4C 26.461 ml SSM CV FU JI PACS Myocardial strain charge 2 unitless SSM CV FUJI PACS Anatomical Region Laterality Modality Ultrasound 12/24/2024 10:3 3 AM CDT Narrative 12/24/2024 3:14 PM CDT Patient Info Name: Brandy Smith Age: 64 years : 1960 Gender: Female Ht: 64 in Wt: 167 lb BSA: 1.87 m2 HR: 69 bpm BP: 131 / 78 mmHg Heart Rhythm: Sinus Rhythm Exam Date: 12/24/2024 10:33 AM Exam Room: [facility] Patient Status: O/P Study Site: [facility] Primary Location: [facility] EStudy Info Technical Quality: Adequate Exam Type: ECHO STRESS DOBUTAMINE W CONTRAST Indications Please refer to EHR for Exam Diagnosis Codes - Procedure(s) * Dobutamine stress echocardiogram is performed with 2D along with an Ultrasound Enhancing Agent (UEA). Contrast/Agitated Saline Contrast / Saline: Definity Amount: 1.50 ml Administered By: Tawnya Moise Reaction to Contrast: no Staff Referring Physician: Abundio Benjamin Ordering Provider: Fred Jo V Attending Physician: Abundio Benjamin Nurse: Tawnya Moise Systems Auditor: Cira Encarnacion [facility] Summary * No abnormal ST/T wave changes with stress. * Stress ECG is negative for ischemia. * Normal left ventricular systolic function with no regional wall motion abnormalities noted at rest. * No regional wall motion abnormalities noted post stress. * The stress echocardiogram is negative for dobutamine induced wall motion abnormalities. Stress Echo Findings Left Ventricle Normal left ventricular systolic function with no regional wall motion abnormalities noted at rest. No regional wall motion abnormalities noted post stress. Measurements Ventricles Name Value Normal LV Fractional Shortening/Ejection Fraction 2D/MM LV Diastolic Volume (4C MOD) 94 ml LV EF (4C MOD) 72 % LV Diastolic Volume (2C MOD) 76 ml LV EF (2C MOD) 72 % LV Diastolic Volume (BP MOD) 85 ml 46-106 LV Diastolic Volume Index (BP MOD) 45 ml/m2 29-61 LV Systolic Volume (BP MOD) 24 ml 14-42 LV Systolic Volume Index (BP MOD) 13 ml/m2 8-24 LV EF (BP MOD) 71 % 54-74 LV Diastolic Length (4C) 7.8 cm LV Systolic Length (4C) 6.6 cm LV Stroke Volume (4C MOD) 67 ml Protocol: Dobutamine Stress ECG Details Stage: Rest Duration (min): 37 min : 18 sec HR (bpm): 68 SBP (mmHg): 111 DBP (mmHg): 71 Symptoms: None Stage: 1 Duration (min): 3 min : 0 sec Dose: 10 Medication(s): Dobutamine HR (bpm): 91 SBP (mmHg): 118 DBP (mmHg): 66 Symptoms: None Stage: 2 Duration (min): 3 min : 0 sec Dose: 20 Medication(s): Dobutamine HR (bpm): 109 SBP (mmHg): 136 DBP (mmHg): 74 Symptoms: None Stage: 3 Duration (min): 5 min : 49 sec Dose: 30 Medication(s): Dobutamine HR (bpm): 144 SBP (mmHg): 136 DBP (mmHg): 74 Symptoms: None Stage: Recovery Duration (min): 7 min : 8 sec HR (bpm): 101 SBP (mmHg): 139 DBP (mmHg): 82 Symptoms: None Target HR Summary: Test terminated after reaching target heart rate (85% max predicted) BP Response: Normal blood pressure response Cardiac Symptoms: None Resting ECG Normal sinus rhythm at rest. Stress ECG Heart rate demonstrated a normal response to stress. A peak heart rate of 144 bpm was achieved. The patient's peak stress blood pressure was 136/[address]/T wave changes with stress. Stress ECG is negative for ischemia. Arrhythmias Frequent PVCs during recovery. Termination Reason: Reached target heart rate or workload Total Time: 11 min : 48 sec Medications See Epic for a complete list of medications used during the study. Heart Rate Response : Resting HR (bpm): 68 : Peak HR (bpm): 144 : Max Predicted HR (bpm): 155 : % of Max Predicted HR: 93 % : Target HR (bpm): 132 Blood Pressure Response : Rest Sys. BP (mmHg): 111 : Rest Diast. BP (mmHg): 71 : Peak Sys. BP (mmHg): 136 : Peak Sims. BP (mmHg): 74 : Max Rate Pressure Product (bpm*mmHg): 19,584 Medication Peak Dobutamine Dose Dose: 30.0 mcg/kg/min Atropine Dose: 2.0 mg Report Signatures Echo Finalized by Goran Cornejo on 12/24/2024 03:14 PM Stress ECG Finalized by Goran Cornejo on 12/24/2024 03:14 PM Stress Findings The target heart rate was 132 bpm. Procedure Note Goran Cornejo MD - 12/24/2024 Patient Info Name: Brandy Smith Age: 64 years : 1960 Gender: Female Ht: 64 in Wt: 167 lb BSA: 1.87 m2 HR: 69 bpm BP: 131 / 78 mmHg Heart Rhythm: Sinus Rhythm Exam Date: 12/24/2024 10:33 AM Exam Room: [facility] Patient Status: O/P [facility]: [facility]qu[facility] Exam Type: ECHO STRESS DOBUTAMINE W CONTRAST Indications Please refer to EHR for Exam Diagnosis Codes - Procedure(s) * Dobutamine stress echocardiogram is performed with 2D along with an Ultrasound Enhancing Agent (UEA). Contrast/Agitated Saline Contrast / Saline: Definity Amount: 1.50 ml Administered By: Tawnya Moise Reaction to Contrast: no Staff Referring Physician: Abundio Benjamin Ordering Provider: Fred Jo V Attending Physician: Abundio Benjamin Nurse: Tawnya Moise Systems Auditor: Cira Encarnacion [facility] Summary * No abnormal ST/T wave changes with stress. * Stress ECG is negative for ischemia. * Normal left ventricular systolic function with no regional wallmotion abnormalities noted at rest. * No regional wall motion abnormalities noted post stress. * The stress echocardiogram is negative for dobutamine induced wallmotion abnormalities. Stress Echo Findings Left Ventricle Normal left ventricular systolic function with no regional wall motion abnormalities noted at rest. No regional wall motion abnormalities notedpost stress. Measurements Ventricles Name Value Normal LV Fractional Shortening/Ejection Fraction 2D/MM LV Diastolic Volume (4C MOD) 94 ml LV EF (4C MOD) 72 % LV Diastolic Volume (2C MOD) 76 ml LV EF (2C MOD) 72 % LV Diastolic Volume (BP MOD) 85 ml 46-106 LV Diastolic Volume Index (BP MOD) 45 ml/m2 29-61 LV Systolic Volume (BP MOD) 24 ml 14-42 LV Systolic Volume Index (BP MOD) 13 ml/m2 8-24 LV EF (BP MOD) 71 % 54-74 LV Diastolic Length (4C) 7.8 cm LV Systolic Length (4C) 6.6 cm LV Stroke Volume (4C MOD) 67 ml Protocol: Dobutamine Stress ECG Details Stage: Rest Duration (min): 37 min : 18 sec HR (bpm): 68 SBP (mmHg): 111 DBP (mmHg): 71 Symptoms: None Stage: 1 Duration (min): 3 min : 0 sec Dose: 10 Medication(s): Dobutamine HR (bpm): 91 SBP (mmHg): 118 DBP (mmHg): 66 Symptoms: None Stage: 2 Duration (min): 3 min : 0 sec Dose: 20 Medication(s): Dobutamine HR (bpm): 109 SBP (mmHg): 136 DBP (mmHg): 74 Symptoms: None Stage: 3 Duration (min): 5 min : 49 sec Dose: 30 Medication(s): Dobutamine HR (bpm): 144 SBP (mmHg): 136 DBP (mmHg): 74 Symptoms: None Stage: Recovery Duration (min): 7 min : 8 sec HR (bpm): 101 SBP (mmHg): 139 DBP (mmHg): 82 Symptoms: None Target HR Summary: Test terminated after reaching target heart rate(85% max predicted) BP Response: Normal blood pressure response Cardiac Symptoms: None Resting ECG Normal sinus rhythm at rest. Stress ECG Heart rate demonstrated a normal response to stress. A peak heart rateof 144 bpm was achieved. The patient's peak stress blood pressure oux278/[address]/T wave changes with stress. Stress ECG is negativefor ischemia. Arrhythmias Frequent PVCs during recovery. Termination Reason: Reached target heart rate or workload Total Time: 11 min : 48 sec Medications See Epic for a complete list of medications used during the study. Heart Rate Response : Resting HR (bpm): 68 : Peak HR (bpm): 144 : Max Predicted HR (bpm): 155 : % of Max Predicted HR: 93 % : Target HR (bpm): 132 Blood Pressure Response : Rest Sys. BP (mmHg): 111 : Rest Diast. BP (mmHg): 71 : Peak Sys. BP (mmHg): 136 : Peak Sims. BP (mmHg): 74 : Max Rate Pressure Product (bpm*mmHg): 19,584 Medication Peak Dobutamine Dose Dose: 30.0 mcg/kg/min Atropine Dose: 2.0 mg Report Signatures Echo Finalized by Goran Cornejo on 12/24/2024 03:14 PM Stress ECG Finalized by Goran Cornejo on 12/24/2024 03:14 PM us Fred Jo MD ECHO CUPID Final R esult * ECHO COMPLETE (12/24/2024 9:25 AM CDT) AV area index 1.281 cm /m SSM CV FUJI PACS LA vol index 0.023 l/m [facility] Dimensionless Index 0.755 unitless [facility] Myocardial strain charge 2 unitless [facility] IVSd 2D 0.887 cm SSM CV [facility] I PACS LVIDd 4.152 cm SSM CV [facility] I PACS LVIDs 2.514 cm SSM CV [facility] I PACS LVOT diam 1.988 cm SSM CV [facility] I PACS LVPWd 1.007 cm SSM CV [facility] I PACS LV biplane EF 70.828 % [facility] A2C EF 78.445 % [facility] I PACS LV A4C EF 60.972 % SSM CV [facility] I PACS LV EDV A2C 109.065 ml SSM CV FU JI PACS LV EDV A4C 118.043 ml SSM CV FU JI PACS LV ESV A2C 23.509 ml SSM CV FU JI PACS LV ESV A4C 46.07 ml SSM CV FU JI PACS LVOT pk grad 4.159 mmHg [facility] LVOT pk johnny 101.971 cm/s SSM CV F U PACS LVOT VTI 19.525 cm SSM CV [facility] I PACS RV-sims basal diam 3.227 cm [facility] RVIDd 3.29 cm SSM CV [facility] I PACS RVOT diam Doppler 2.874 cm SS M [facility] RVOT pk johnny 60.078 cm/s SSM CV F UJI PACS RVOT VTI 11.478 cm SSM CV FUJ I PACS LA size 3.484 cm SSM CV FUJ I PACS LA vol BP 42.414 ml SSM CV [facility] I PACS RA area 10.161 cm SSM CV FUJI PACS AV area pk johnny 2.364 cm SSM CV FUJI PACS AV area cont VTI 2.343 cm SSM CV FUJI PACS AV pk grad 7.17 mmHg SSM CV FU JI PACS AV mn grad 3.948 mmHg SSM CV FU JI PACS AV pk johnny 133.885 cm/s SSM CV FUJ I PACS AV VTI 25.864 cm SSM CV FUJ I PACS MV A pk johnny 73.751 cm/s SSM CV F UJI PACS MV E pk johnny 78.204 cm/s SSM CV F UJI PACS MV E' lateral johnny 8.569 cm/s SS M CV FUJI PACS PV pk johnny 62.675 cm/s SSM CV FUJ I PACS PV VTI 13.608 cm SSM CV FUJ I PACS TAPSE 2.335 cm SSM CV FUJ I PACS TR pk johnny 229.654 cm/s SSM CV FUJ I PACS Ascending aorta 3.136 cm SSM CV FUJI PACS IVC Diam Expiration 1.83 cm SSM CV FUJI PACS Anatomical Region Laterality Modality Ultrasound 12/24/2024 8:59 AM CDT Narrative 12/24/2024 11:02 AM CDT Summary * The left ventricle is borderline dilated, with normal systolic function and an estimated ejection fraction of 71 % by biplane method of disks. Left ventricular wall motion is normal. * The left ventricular mass is normal with concentric remodeling. * The left ventricular diastolic function is normal. * Right ventricle is normal in size with normal systolic function. * No hemodynamically significant valve disease. * The pulmonary artery systolic pressure is normal, 29 mmHg. Patient Info Name: Brandy Smith Age: 64 years : 1960 Gender: Female Ht: 63 in Wt: 162 lb BSA: 1.83 m2 HR: 71 bpm BP: 130 / 70 mmHg Heart Rhythm: Sinus Rhythm Exam Date: 12/24/2024 8:59 AM Patient Status: O/P Study Site: [facility] Primary Location: [facility] Info Technical Quality: Good Exam Type: ECHO COMPLETE Indications Please refer to EHR for Exam Diagnosis Codes - Procedure(s) * A complete 2D, color Doppler, spectral Doppler, and M-Mode transthoracic echocardiogram was performed. Staff Referring Physician: Abundio Benjamin Ordering Provider: Abundio Benjamin Attending Physician: Abundio Benjamin Systems Auditor: Daria Cazares Left Ventricle The left ventricle is borderline dilated. Left ventricular systolic function is normal with an estimated ejection fraction of 71 % by biplane method of disks. The left ventricular mass is normal with concentric remodeling. Left ventricular segmental wall motion is normal. The left ventricular diastolic function is normal. Right Ventricle The right ventricle is normal in size. Right ventricular systolic function is normal. Left Atrium The left atrium is normal in size with a left atrial volume index of 23 ml/m2 by BP MOD. Right Atrium The right atrium is normal in size. Atrial Septum Intact interatrial septum visualized by 2D and color Doppler imaging. Aortic Valve The aortic valve is trileaflet. There is no aortic valve stenosis. There is no aortic valve regurgitation. Pulmonic Valve The pulmonic valve is normal. There is no pulmonic valve stenosis. There is no significant pulmonic regurgitation. Mitral Valve The mitral valve is grossly normal. There is no mitral valve stenosis. There is trace mitral valve regurgitation. Tricuspid Valve The tricuspid valve is grossly normal. There is trace tricuspid valve regurgitation. The pulmonary artery systolic pressure is normal, 29 mmHg. Inferior Vena Cava The inferior vena cava is normal in size (< 2.1 cm). Pericardium/Pleural There is no pericardial effusion. Aorta The aortic root at the sinus of Valsalva is normal in size. The ascending aorta is normal in size. Measurements Left Ventricular Outflow Tract Name Value Normal LVOT 2D LVOT Diameter 2.0 cm LVOT Area 3.1 cm2 LVOT Doppler LVOT Peak Velocity 1.0 m/s LVOT Peak Gradient 4 mmHg LVOT Mean Velocity 66.41 cm/s LVOT Mean Gradient 2 mmHg LVOT VTI 19.5 cm LVOT VTI/AV VTI Ratio 0.8 LVOT Stroke Volume 61 ml LVOT Stroke Volume Index 33 ml/m2 35-58 LVOT CO 4.3 l/min LVOT CI 2.4 l/min/m2 Pulmonic Valve Name Value Normal PV 2D RVOT Diameter (2D) 2.9 cm 1.7-2.7 RVOT Doppler RVOT Peak Velocity 0.6 m/s RVOT Peak Gradient 1 mmHg RVOT Mean Gradient 1 mmHg PV Doppler PV Peak Velocity 0.6 m/s PV Peak Gradient 2 mmHg PV Mean Gradient 1 mmHg PV Area (Cont Eq VTI) 5.47 cm2 PV Area Index (Cont Eq VTI) 2.99 cm2/m2 PV Area (Cont Eq Johnny) 6.2 cm2 PV Area Index (Cont Eq Johnny) 3.40 cm2/m2 Mitral Valve Name Value Normal MV Diastolic Function MV E Peak Velocity 0.8 m/sec MV A Peak Velocity 0.7 m/sec MV E/A 1.1 MV Decel Time (PW) 192 ms MV A Wave Duration 174 ms MV Annular TDI MV Septal e' Velocity 5 cm/s >=8 MV E/e' (Septal) 15 <=8 MV Lateral e' Velocity 9 cm/s >=10 MV E/e' (Lateral) 9 <=8 MV e' Average 7 cm/s MV E/e' (Average) 12 Tricuspid Valve Name Value Normal TV 2D TV Annulus Diameter (4C) 3.2 cm TV Regurgitation Doppler TR Peak Velocity 2.3 m/s TR Peak Gradient 21 mmHg Estimated PAP/RSVP PA Systolic Pressure 29 mmHg <35 Pulmonary Vessels Name Value Normal Pulmonary Veins Pulm Vein Peak Systolic Velocity 41.9 cm/s Pulm Vein Peak Diastolic Velocity 49.5 cm/s Pulm Vein S/D Velocity Ratio 1 Aorta Name Value Normal Ascending Aorta Asc Ao Diameter 3.1 cm 1.9-3.5 Asc Ao Diameter Index 1.7 cm/m2 1.0-2.2 Septae/Shunt/Generic Name Value Normal Qp/Qs Qp/Qs 1.2 Venous Name Value Normal IVC/SVC IVC Diameter 1.8 cm <=2.1 Aortic Valve Name Value Normal AV Doppler AV Peak Velocity 1.34 m/s AV Peak Gradient 7 mmHg AV Mean Gradient 4 mmHg AV VTI 26 cm AV Area (Cont Eq VTI) 2.34 cm2 >=2.00 AV Area (Cont Eq Johnny) 2.36 cm2 AV DI (VTI) 0.75 AV DI (Johnny) 0.76 AV Regurgitation 2D LVOT Area 3.10 cm2 Ventricles Name Value Normal LV Dimensions 2D/MM IVS Diastolic Thickness (2D) 0.9 cm 0.6-0.9 LVID Diastole (2D) 4.2 cm 3.8-5.2 LVPW Diastolic Thickness (2D) 1.0 cm 0.6-0.9 IVS Systolic Thickness (2D) 1.2 cm LVID Systole (2D) 2.5 cm 2.2-3.5 LVPW Systolic Thickness (2D) 1.4 cm LV Mass (2D Cubed) 105 g 67-162 LV Mass Index (2D Cubed) 57 g/m2 43-95 Relative Wall Thickness (2D) 0.48 <=0.42 LV Fractional Shortening/Ejection Fraction 2D/MM LV Fractional Shortening (2D) 39 % 27-45 LV EF (2D Teicholz) 70 % 54-74 LV Diastolic Volume (4C MOD) 118 ml LV EF (4C MOD) 61 % LV Diastolic Volume (2C MOD) 109 ml LV EF (2C MOD) 78 % LV Diastolic Volume (BP MOD) 114 ml 46-106 LV Diastolic Volume Index (BP MOD) 62 ml/m2 29-61 LV Systolic Volume (BP MOD) 33 ml 14-42 LV Systolic Volume Index (BP MOD) 18 ml/m2 8-24 LV EF (BP MOD) 71 % 54-74 LV Diastolic Length (4C) 7.9 cm LV Systolic Length (4C) 6.7 cm LV Stroke Volume (4C MOD) 72 ml RV Dimensions 2D/MM RVID Diastole (2D) 3.3 cm 2.5-3.5 RVID Systole (2D) 3.2 cm RV Basal Diastolic Dimension 3.2 cm 2.5-4.1 RV Diastolic Length (4C) 6.4 cm 5.9-8.3 TAPSE 2.3 cm >=1.7 Atria Name Value Normal LA Dimensions LA Dimension (2D) 3.5 cm 2.7-3.8 LA Dimen Index (2D) 1.9 cm/m2 LA Volume (BP MOD) 42 ml LA Volume Index (BP MOD) 23 ml/m2 16-34 RA Dimensions RA Area (4C) 10 cm2 <=18 RA Area (4C) Index 6 cm2/m2 Report Signatures Finalized by Goran Cornejo on 12/24/2024 11:02 AM Procedure Note Goran Cornejo MD - 12/24/2024 Summary * The left ventricle is borderline dilated, with normal systolicfunction and an estimated ejection fraction of 71 % by biplane method of disks.Left ventricular wall motion is normal. * The left ventricular mass is normal with concentric remodeling. * The left ventricular diastolic function is normal. * Right ventricle is normal in size with normal systolic function. * No hemodynamically significant valve disease. * The pulmonary artery systolic pressure is normal, 29 mmHg. Patient Info Name: Brandy Smith Age: 64 years : 1960 Gender: Female Ht: 63 in Wt: 162 lb BSA: 1.83 m2 HR: 71 bpm BP: 130 / 70 mmHg Heart Rhythm: Sinus Rhythm Exam Date: 12/24/2024 8:59 AM Patient Status: O/P Study Site: [facility] Primary Location: [facility] Info Technical Quality: Good Exam Type: ECHO COMPLETE Indications Please refer to EHR for Exam Diagnosis Codes - Procedure(s) * A complete 2D, color Doppler, spectral Doppler, and M-Modetransthoracic echocardiogram was performed. Staff Referring Physician: Abundio Benjamin Ordering Provider: Abundio Benjamin Attending Physician: Abundio Benjamin Systems Auditor: Daria Cazares Left Ventricle The left ventricle is borderline dilated. Left ventricular systolicfunction is normal with an estimated ejection fraction of 71 % by biplane methodof disks. The left ventricular mass is normal with concentric remodeling.Left ventricular segmental wall motion is normal. The left ventriculardiastolic function is normal. Right Ventricle The right ventricle is normal in size. Right ventricular systolicfunction is normal. Left Atrium The left atrium is normal in size with a left atrial volume index of23 ml/m2 by BP MOD. Right Atrium The right atrium is normal in size. Atrial Septum Intact interatrial septum visualized by 2D and color Doppler imaging. Aortic Valve The aortic valve is trileaflet. There is no aortic valve stenosis. Thereis no aortic valve regurgitation. Pulmonic Valve The pulmonic valve is normal. There is no pulmonic valve stenosis. Thereis no significant pulmonic regurgitation. Mitral Valve The mitral valve is grossly normal. There is no mitral valve stenosis.There is trace mitral valve regurgitation. Tricuspid Valve The tricuspid valve is grossly normal. There is trace tricuspid valve regurgitation. The pulmonary artery systolic pressure is normal, 29mmHg. Inferior Vena Cava The inferior vena cava is normal in size (< 2.1 cm). Pericardium/Pleural There is no pericardial effusion. Aorta The aortic root at the sinus of Valsalva is normal in size. Theascending aorta is normal in size. Measurements Left Ventricular Outflow Tract Name Value Normal LVOT 2D LVOT Diameter 2.0 cm LVOT Area 3.1 cm2 LVOT Doppler LVOT Peak Velocity 1.0 m/s LVOT Peak Gradient 4 mmHg LVOT Mean Velocity 66.41 cm/s LVOT Mean Gradient 2 mmHg LVOT VTI 19.5 cm LVOT VTI/AV VTI Ratio 0.8 LVOT Stroke Volume 61 ml LVOT Stroke Volume Index 33 ml/m2 35-58 LVOT CO 4.3 l/min LVOT CI 2.4 l/min/m2 Pulmonic Valve Name Value Normal PV 2D RVOT Diameter (2D) 2.9 cm 1.7-2.7 RVOT Doppler RVOT Peak Velocity 0.6 m/s RVOT Peak Gradient 1 mmHg RVOT Mean Gradient 1 mmHg PV Doppler PV Peak Velocity 0.6 m/s PV Peak Gradient 2 mmHg PV Mean Gradient 1 mmHg PV Area (Cont Eq VTI) 5.47 cm2 PV Area Index (Cont Eq VTI) 2.99 cm2/m2 PV Area (Cont Eq Johnny) 6.2 cm2 PV Area Index (Cont Eq Johnny) 3.40 cm2/m2 Mitral Valve Name Value Normal MV Diastolic Function MV E Peak Velocity 0.8 m/sec MV A Peak Velocity 0.7 m/sec MV E/A 1.1 MV Decel Time (PW) 192 ms MV A Wave Duration 174 ms MV Annular TDI MV Septal e' Velocity 5 cm/s >=8 MV E/e' (Septal) 15 <=8 MV Lateral e' Velocity 9 cm/s >=10 MV E/e' (Lateral) 9 <=8 MV e' Average 7 cm/s MV E/e' (Average) 12 Tricuspid Valve Name Value Normal TV 2D TV Annulus Diameter (4C) 3.2 cm TV Regurgitation Doppler TR Peak Velocity 2.3 m/s TR Peak Gradient 21 mmHg Estimated PAP/RSVP PA Systolic Pressure 29 mmHg <35 Pulmonary Vessels Name Value Normal Pulmonary Veins Pulm Vein Peak Systolic Velocity 41.9 cm/s Pulm Vein Peak Diastolic Velocity 49.5 cm/s Pulm Vein S/D Velocity Ratio 1 Aorta Name Value Normal Ascending Aorta Asc Ao Diameter 3.1 cm 1.9-3.5 Asc Ao Diameter Index 1.7 cm/m2 1.0-2.2 Septae/Shunt/Generic Name Value Normal Qp/Qs Qp/Qs 1.2 Venous Name Value Normal IVC/SVC IVC Diameter 1.8 cm <=2.1 Aortic Valve Name Value Normal AV Doppler AV Peak Velocity 1.34 m/s AV Peak Gradient 7 mmHg AV Mean Gradient 4 mmHg AV VTI 26 cm AV Area (Cont Eq VTI) 2.34 cm2 >=2.00 AV Area (Cont Eq Johnny) 2.36 cm2 AV DI (VTI) 0.75 AV DI (Johnny) 0.76 AV Regurgitation 2D LVOT Area 3.10 cm2 Ventricles Name Value Normal LV Dimensions 2D/MM IVS Diastolic Thickness (2D) 0.9 cm 0.6-0.9 LVID Diastole (2D) 4.2 cm 3.8-5.2 LVPW Diastolic Thickness (2D) 1.0 cm 0.6-0.9 IVS Systolic Thickness (2D) 1.2 cm LVID Systole (2D) 2.5 cm 2.2-3.5 LVPW Systolic Thickness (2D) 1.4 cm LV Mass (2D Cubed) 105 g 67-162 LV Mass Index (2D Cubed) 57 g/m2 43-95 Relative Wall Thickness (2D) 0.48 <=0.42 LV Fractional Shortening/Ejection Fraction 2D/MM LV Fractional Shortening (2D) 39 % 27-45 LV EF (2D Teicholz) 70 % 54-74 LV Diastolic Volume (4C MOD) 118 ml LV EF (4C MOD) 61 % LV Diastolic Volume (2C MOD) 109 ml LV EF (2C MOD) 78 % LV Diastolic Volume (BP MOD) 114 ml 46-106 LV Diastolic Volume Index (BP MOD) 62 ml/m2 29-61 LV Systolic Volume (BP MOD) 33 ml 14-42 LV Systolic Volume Index (BP MOD) 18 ml/m2 8-24 LV EF (BP MOD) 71 % 54-74 LV Diastolic Length (4C) 7.9 cm LV Systolic Length (4C) 6.7 cm LV Stroke Volume (4C MOD) 72 ml RV Dimensions 2D/MM RVID Diastole (2D) 3.3 cm 2.5-3.5 RVID Systole (2D) 3.2 cm RV Basal Diastolic Dimension 3.2 cm 2.5-4.1 RV Diastolic Length (4C) 6.4 cm 5.9-8.3 TAPSE 2.3 cm >=1.7 Atria Name Value Normal LA Dimensions LA Dimension (2D) 3.5 cm 2.7-3.8 LA Dimen Index (2D) 1.9 cm/m2 LA Volume (BP MOD) 42 ml LA Volume Index (BP MOD) 23 ml/m2 16-34 RA Dimensions RA Area (4C) 10 cm2 <=18 RA Area (4C) Index 6 cm2/m2 Report Signatures Finalized by Goran Cornejo on 12/24/2024 11:02 AM us Abundio Benjamin MD ECHO CUPID Final Result * QUANTIFERON-TB GOLD PLUS 4-TUBE (12/24/2024 8:25 AM CDT) [facility] QuantiFERON Mitogen Minus NIL 9.97 IU/mL 12/26/2024 6:33 PM CDT [facility] ([facility]) QuantiFERON Nil Value 0.03 IU/mL 12/26/2024 6:33 PM CDT [facility]) QuantiFERON Plus TB1 Minus NIL 0.00 <=0.34 IU/mL 12/26/2024 6:33 PM CDT [facility] ([facility]) QuantiFERON Plus TB2 Minus NIL 0.00 <=0.34 IU/mL 12/26/2024 6:33 PM CDT [facility]) QuantiFERON-TB Gold Plus Negative Negative 12/26/2024 6:33 PM CDT [facility] ([facility]) Comment: INTERPRETIVE INFORMATION:Quantiferon TB Gold Plus Interferon gamma release is measured for specimens from each of the four collection tubes. A qualitative result (Negative, Positive, or Indeterminate) is based on interpretation of the four values: NIL, MITOGEN minus NIL (MITOGEN-NIL), TB1 minus NIL (TB1-NIL), and TB2 minus NIL (TB2-NIL). The NIL value represents nonspecific reactivity produced by the patient specimen. The MITOGEN-NIL value serves as the positive control for the patient specimen, demonstrating successful lymphocyte activity. The TB1-NIL tube specifically detects CD4+ lymphocyte reactivity, specifically stimulated by the TB1 antigens. The TB2-NIL tube detects both CD4+ and CD8+ lymphocyte reactivity, stimulated by TB2 antigens. An overall Negative result does not completely rule out TB infection. A false-positive result in the absence of other clinical evidence of TB infection is not uncommon. Refer to: Updated Guidelines for Using Interferon Gamma Release Assays to Detect Mycobacterium tuberculosis Infection -- [place], 2010 (http://www.cdc.gov/mmwr/preview/mmwrhtml/dr0160c8.htm), for more information concerning test performance in low-prevalence populations and use in occupational screening. Performed By: [place] [address] Traveling Representative: Gerard Davidson MD, PhD CLIA Number: [id number] Blood BLOOD SPECIMEN / Unknown Venipuncture / Unknown 12/24/2024 8:25 AM CDT 12/24/2024 8:38 AM CDT Fred Jo MD LAB - CHEMISTRY ORDERAB LES Final Result [facility] ([facility]) [address] [place] [address] * (ABNORMAL) URINALYSIS REFLEX MICROSCOPIC REFLEX CULTURE (12/24/2024 8:25 AM CDT) Color UA Yellow Yellow, Straw 12/24/2024 8:59 AM CDT [facility] Clarity UA Clear Clear 12/24/2024 8:59 AM CDT [facility] Glucose UA 2+(A) Normal 12/24/2024 8:59 AM CDT [facility] Bilirubin UA Negative Negative 12/24/2024 8:59 AM CDT [facility] Ketone UA Negative Negative 12/24/2024 8:59 AM CDT [facility] Specific [place] UA 1.011 1.005 - 1.030 12/24/2024 8:59 AM CDT [facility] Blood UA Trace(A) Negative 12/24/2024 8:59 AM [facility] pH UA 5.5 5.0 - 9.0 pH 12/24/2024 8:59 AM [facility] Protein UA 1+(A) Negative 12/24/2024 8:59 AM [facility] Urobilinogen UA Normal Normal mg/dL 025 8:59 AM [facility] Nitrite UA Negative Negative 12/24/2024 8:59 AM [facility] Leukocyte UA Negative Negative 12/24/2024 8:59 AM [facility] RBC UA 0-2 0 - 5 # /hpf 12/24/2024 8:59 AM [facility] WBC UA 0-5 0 - 5 # /hpf 12/24/2024 8:59 AM [facility] Bacteria UA Trace(A) None Seen 12/24/2024 8:59 AM [facility] Squamous Epithelial Cells 3-5 0 - 5 /hpf 12/24/2024 8:59 AM [facility] Mucus UA 1+ /LPF 12/24/2024 8:59 AM [facility] Urine URINE SPECIMEN OBTAINED BY CLEAN CATCH PROCEDURE / Unknown Collection / Unknown 12/24/2024 8:25 AM CDT 12/24/2024 8:37 AM T us Fred Jo MD LAB - URINALYSIS ORDERA BLES Final Result Performing Organization Address City/State/[facility] de Phone Number [facility] [address] [place] [phone], [facility] [phone] * (ABNORMAL) PROTEIN CREATININE RATIO URINE RANDOM PNL (12/24/2024 8:25 AM CDT) Protein Urine 84 Not Established mg/dL 12/24/2024 9:00 AM [facility] Creatinine Urine 70.58 Not Established mg/dL 12/24/2024 9:00 AM [facility] Protein/Creati nine Ratio Urine 1.19(H) <0.10 12/24/2024 9:00 AM [facility] Urine URINE SPECIMEN OBTAINED BY CLEAN CATCH PROCEDURE / Unknown Collection / Unknown 12/24/2024 8:25 AM CDT 12/24/2024 8:37 AM CDT Fred Jo MD LAB - URINE CHEMISTRY O RDERABLES Final Result Performing Organization Address City/[facility]/ZIP Co de Phone Number [facility] [address] [place] [address], [facility] [phone] * COCAINE METABOLITE QUANT (12/24/2024 8:24 AM CDT) Pathologist [facility], [place] Cocaine and Metabolite Blood <20 ng/mL 12/27/2024 10:30 PM CDT [facility] ([facility]) Comment: INTERPRETIVE INFORMATION: Cocaine Metabolite, Serum or Plasma, Quantitative Methodology: Quantitative Liquid Chromatography-Tandem Mass Spectrometry Positive cutoff: 20 ng/mL For medical purposes only; not valid for forensic use. The concentration value must be greater than or equal to the cutoff to be reported as positive. Interpretive questions should be directed to the laboratory. This test was developed and its performance characteristics determined by [employer]. It has not been cleared or approved by the [place] Food and Drug Administration. This test was performed in a CLIA certified laboratory and is intended for clinical purposes. Performed By: [facility] [address] [place] [address] Traveling Representative: Gerard Davidson MD, PhD CLIA Number: [id number] Blood BLOOD SPECIMEN / Unknown Venipuncture / Unknown 12/24/2024 8:24 AM CDT 12/24/2024 8:37 AM CDT Fred Jo MD LAB - CHEMISTRY ORDERAB LES Final Result Performing Organization Address [facility]/ZIP Co de Phone Number [facility] [facility]) [address] [place] [address] * SYPHILIS ANTIBODY CASCADING REFLEX (12/24/2024 8:24 AM CDT) Treponema pallidum Antibody Non-react lakesha Non-react lakesha 12/24/2024 9:31 AM CDT [facility] Comment: No Laboratory evidence of syphilis infection. Note: Circulating antibodies may be low or undetectable in early infection. If recent exposure is suspected, re-draw sample in 2-4 weeks and repeat testing. Blood BLOOD SPECIMEN / Unknown Venipuncture / Unknown 12/24/2024 8:24 AM CDT 12/24/2024 8:37 AM CDT Fred Jo MD LAB - SEROLOGY ORDERABL ES Final Result [facility] [address] [place] [address], [facility] [phone] * AMPHETAMINE BLOOD CONFIRMATION (12/24/2024 8:24 AM CDT) Pathologist [facility] [place] Amphetamines Confirmation <20 ng/mL 12/29/2024 7:19 AM CDT [employer] [facility] ([facility]) Comment: INTERPRETIVE INFORMATION: Amphetamines, Serum or Plasma, Quantitative Methodology: Quantitative Liquid Chromatography-Tandem Mass Spectrometry Positive cutoff: 20 ng/mL For medical purposes only; not valid for forensic use. The absence of expected drug(s) and/or drug metabolite(s) may indicate non-compliance, inappropriate timing of specimen collection relative to drug administration, poor drug absorption, or limitations of testing. The concentration value must be greater than or equal to the cutoff to be reported as positive. Interpretive questions should be directed to the laboratory. This test was developed and its performance characteristics determined by [employer]. It has not been cleared or approved by the US Food and Drug Administration. This test was performed in a CLIA certified laboratory and is intended for clinical purposes. Methamphetamine Confirmation <20 ng/mL 12/29/2024 7:19 AM CDT [employer] [facility] ([facility]) MDA Confirmation <20 ng/mL 12/30/19 25 7:19 AM CDT [facility] ([facility]) MDMA Confirm <20 ng/mL 12/29/2024 7:19 AM CDT [facility] ([facility]) MDEA Confirmation <20 ng/mL 025 7:19 AM CDT [facility] ([facility]) Comment: Performed By: [facility] [address] [place] [id number] Traveling Representative: Gerard Davidson MD, PhD CLIA Number: [id number] Blood BLOOD SPECIMEN / Unknown Venipuncture / Unknown 12/24/2024 8:24 AM CDT 12/24/2024 8:37 AM CDT Fred Jo MD LAB - CHEMISTRY ORDERAB LES Final Result [id number] [place] [address] * (ABNORMAL) PTH INTACT W/O CALCIUM (12/24/2024 8:24 AM CDT) PTH Intact 858.1(H) 8.0 - 77.0 pg/mL 12/24/2024 9:10 AM CDT [facility] Blood BLOOD SPECIMEN / Unknown Venipuncture / Unknown 12/24/2024 8:24 AM CDT 12/24/2024 8:40 AM CDT Fred Jo MD LAB - CHEMISTRY ORDERAB LES Final Result Performing Organization Address [facility]/ZIP Co de Phone Number [address] [address], [place] [phone] * HIV-1 HIV-2 ANTIBODY + HIV P24 AG PANEL (12/24/2024 8:24 AM CDT) HIV Antigen/Antibod y 1 & 2 Non-reacti ve Non-react lakesha 12/24/2024 9:31 AM CDT [facility] Comment:No Laboratory eviden ce of HIV infection. Blood BLOOD SPECIMEN / Unknown Venipuncture / Unknown 12/24/2024 8:24 AM CDT 12/24/2024 8:37 AM CDT Fred Jo MD LAB - CHEMISTRY ORDERAB LES Final Result Performing Organization Address City/[facility]/ZIP Co de Phone Number [address] [address], [place] [phone] * (ABNORMAL) HEPATITIS B SURFACE ANTIBODY QUANT (12/24/2024 8:24 AM CDT) [facility] Hepatitis B Virus Surface Antibody Reactive( A) Non-react lakesha 12/24/2024 9:29 AM CDT [facility] Comment: > 12 mIU/mL Hepatitis B surface Antibody (HBsAb). Reactive for HBsAb - individual is considered immune to Hepatitis B Virus infection. Hepatitis B Surface Antibody Quantitative 97.8(H) <8.0 mIU/mL 12/24/2024 9:29 AM CDT [facility] Comment: Hepatitis B Surface Antibody Numeric Result Interpretation: Nonreactive: <8.0 mIU/mL Indeterminate: 8.0 - 12.0 mIU/mL Reactive: >12.0 mIU/mL Blood BLOOD SPECIMEN / Unknown Venipuncture / Unknown 12/24/2024 8:24 AM CDT 12/24/2024 8:37 AM CDT Narrative [facility] - 12/24/2024 9:29 AM CDT This assay should not be used for blood, plasma, or tissue donor screening. This assay is not recommended for neonates born to HBV-infected or suspected HBV-infected mothers. Fred Jo MD LAB - SEROLOGY ORDERABL ES Final Result Performing Organization Address [facility]/State/ZIP Co de Phone Number [address] [address], [facility] [phone] * OPIATES BLOOD (12/24/2024 8:24 AM CDT) [facility] Opiates Screen Negative 12/27/2024 7:09 PM CDT [facility] ([facility]) Comment:REFERENCE RANGE: thr shold: 10 ng/mL Oxycodone Screen Negative 12/28/19 7:09 PM CDT [facility] ([facility]) Comment:REFERENCE RANGE: thr shold: 10 ng/mL Specimen Type Comment 12/27/2024 7:09 PM CDT [facility] ([facility]) Comment: WHOLE BLOOD This specimen was screened by immunoassay at the thresholds listed above. Presumptive positive results have not been confirmed by an alternate method; results are intended for clinical medical purposes. Please contact the laboratory if confirmatory testing is desired. This test was developed and its performance characteristics determined by [facility]. It has not been cleared or approved by the Food and Drug Administration. Blood BLOOD SPECIMEN / Unknown Venipuncture / Unknown 12/24/2024 8:24 AM CDT 12/24/2024 9:36 AM CDT Narrative [facility] ([facility]) - 12/27/2024 7:09 PM CDT Performed at: [facility] [address] [place] [id number] Meteorological Technician: Patricia Ozuna [facility], Phone: [phone] Fred Jo MD LAB - CHEMISTRY ORDERAB LES Final Result Performing Organization Address City/[facility]/ZIP Co de Phone Number [facility] [address] [place] [address] * URIC ACID BLOOD (12/24/2024 8:24 AM CDT) Uric Acid 6.0 2.6 - 6.0 mg/dL 12/24/2024 9:07 AM CDT [facility] Blood BLOOD SPECIMEN / Unknown Venipuncture / Unknown 12/24/2024 8:24 AM CDT 12/24/2024 8:41 AM CDT Fred Jo MD LAB - CHEMISTRY ORDERAB LES Final Result [address] [id number] [phone] * STRONGYLOIDES ANTIBODY IGG (12/24/2024 8:24 AM CDT) Strongyloides Antibody IgG 0.1 <=0.9 IV 12/26/2024 11:22 PM CDT [facility] ([facility]) Comment: INTERPRETIVE INFORMATION: Strongyloides Ab, IgG by NERY 0.9 IV or less....... Negative - No significant level of Strongyloides IgG antibody detected. 1.0 IV................Equivocal - The Strongyloides IgG antibody result is borderline and therefore inconclusive. Recommend retesting the patient in 2-4 weeks, if clinically indicated. 1.1 IV or greater ... Positive - IgG antibodies to Strongyloides detected, which may suggest current or past infection. False-positive results may occur with prior exposure to other helminth infections. Testing low-prevalence populations may also result in false-positive results. Performed By: [facility] [address] [place] [address] Traveling Representative: Gerard Davidson MD, PhD CLIA Number: [id number] Blood BLOOD SPECIMEN / Unknown Venipuncture / Unknown 12/24/2024 8:24 AM CDT 12/24/2024 8:37 AM CDT Fred Jo MD LAB - SEROLOGY ORDERABL ES Final Result [facility]) [address] [place] [address] * TOXOPLASMA GONDII ANTIBODY IGG (12/24/2024 8:24 AM CDT) Pathologist [facility], [place] Toxoplasma Antibody IgG <3.0 <=8.8 IU/mL 12/26/2024 3:01 AM CDT [facility] ([facility]) Comment: INTERPRETIVE INFORMATION: Toxoplasma Ab, IgG 7.1 IU/mL or less....... Not Detected 7.2-8.7 IU/mL .......... Indeterminate-Repeat testing in 10-14 days may be helpful. 8.8 IU/mL or greater ... Detected The best evidence for current infection is a significant change on two appropriately timed specimens, where both tests are done in the same laboratory at the same time. This test should not be used for blood donor screening, associated re-entry protocols, or for screening Human Cell, Tissues and Cellular and Tissue-Based Products (HCT/P). The magnitude of the measured result is not indicative of the amount of antibody present. Performed By: [employer] [address] [place] [address] Traveling Representative: Gerard Davidson MD, PhD CLIA Number: [id number] Blood BLOOD SPECIMEN / Unknown Venipuncture / Unknown 12/24/2024 8:24 AM CDT 12/24/2024 8:37 AM CDT Fred Jo MD LAB - CHEMISTRY ORDERAB LES Final Result Performing Organization Address [facility]/ZIP Co de Phone Number [facility]) [address] [place] [address] * (ABNORMAL) CANCER ANTIGEN (CA) 19-9 (12/24/2024 8:24 AM CDT) CA 19-9 50(H) <=35 U/mL 12/26/2024 1:30 AM CDT [facility] ([facility]) Comment: INTERPRETIVE INFORMATION: Cancer Antigen-GI (CA 19-9) This test uses Min CA 19-9 electrochemiluminescent immunoassay. Results obtained with different test methods or kits cannot be used interchangeably. CA 19-9 value is useful in monitoring pancreatic, hepatobiliary, gastric, hepatocellular, and colorectal cancer. CA 19-9 value, regardless of level, should not be interpreted as absolute evidence of the presence or absence of malignant disease. Performed By: [facility] [employer] [address] [place] [address] Traveling Representative: Gerard Davidson MD, PhD CLIA Number: [id number] Blood BLOOD SPECIMEN / Unknown Venipuncture / Unknown 12/24/2024 8:24 AM CDT 12/24/2024 8:37 AM CDT Fred Jo MD LAB - CHEMISTRY ORDERAB LES Final Result Performing Organization Address City/[facility]/ZIP Co de Phone Number [facility]) [address] [place] [address] * (ABNORMAL) HEMOGLOBIN A1C (12/24/2024 8:24 AM CDT) Hemoglobin A1c 6.9(H) <=5.6 % 12/24/2024 1:04 PM CDT [facility] Estimated Average Glucose 151 mg/dL 12/24/2024 1:04 PM CDT [facility] Comment: HbA1c Interpretation: Normal : < 5.7% Pre-diabetes: 5.7-6.4% Diabetes: Equal to or greater than 6.5% Test results diagnostic of diabetes should be repeated for confirmation. Treatment target values recommended by ADA and other clinical organizations should be used to evaluate metabolic control in patients. Reference: [place] [employer], Standards of Care in Diabetes -2020 In patients 70 years and older consider HbA1c target range of 7.0-7.5% (Reference: Maikel Mane et al. MADYDA. 2012) The Sebia assay for the measurement of HbA1c is a National Glycohemoglobin Standardization Program (NGSP) certified method. Blood BLOOD SPECIMEN / Unknown Venipuncture / Unknown 12/24/2024 8:24 AM CDT 12/24/2024 8:40 AM CDT Fred Jo MD LAB - CHEMISTRY ORDERAB LES Final Result Performing Organization Address City/State/[place] Co de Phone Number [address] [phone] [phone] * (ABNORMAL) VITAMIN D 25-HYDROXY (12/24/2024 8:24 AM CDT) [facility] Vitamin D, 25 Hydroxy 24.1(L) 30.0 - 80.0 ng/mL 12/24/2024 9:24 AM CDT [facility] Comment: The recommendations for 25-Hydroxy Vitamin D clinical decision points are as follows: Deficient: <20.0 ng/mL Insufficient: 20.0 - 29.9 ng/mL Sufficient: 30.0 - 100.0 ng/mL Potential Toxicity: >100 ng/mL Reference: The Endocrine Society Clinical Practice Guidelines. 2011 If the 25-Hydroxy Vitamin D results are inconsitent with clinical evidence, it is recommended that follow-up testing using a method such as LC/MS/MS be performed to confirm the result. Blood BLOOD SPECIMEN / Unknown Venipuncture / Unknown 12/24/2024 8:24 AM CDT 12/24/2024 8:41 AM CDT us Fred Jo MD LAB - CHEMISTRY ORDERAB LES Final Result [id number] [place] [address], [facility] [phone] * NICOTINE + METABOLITES BLOOD (12/24/2024 8:24 AM CDT) Nicotine <5 ng/mL 12/28/2024 3:02 PM CDT [facility] ([facility]) Comment: INTERPRETIVE INFORMATION: Nicotine and Metabolites, Serum or Plasma, Quantitative Methodology: Quantitative Liquid Chromatography-Tandem Mass Spectrometry Positive cutoff: 5 ng/mL For medical purposes only; not valid for forensic use. This test is designed to evaluate recent use of nicotine-containing products. Passive and active exposure cannot be discriminated definitively, although a cutoff of 10 ng/mL cotinine is frequently used for surgery qualification purposes. For smoking cessation programs or compliance testing, the absence of expected drug(s) and/or drug metabolite(s) may indicate non-compliance, inappropriate timing of specimen collection relative to drug administration, poor drug absorption, or limitations of testing. This test cannot distinguish between use of tobacco and purified nicotine products. The concentration value must be greater than or equal to the cutoff to be reported as positive. This test was developed and its performance characteristics determined by [employer]. It has not been cleared or approved by the US Food and Drug Administration. This test was performed in a CLIA certified laboratory and is intended for clinical purposes. Performed By: [employer] [address] [place] [address] Traveling Representative: Gerard Davidson MD, PhD CLIA Number: [id number] Cotinine <5 ng/mL 12/28/2024 3:02 PM CDT [facility] ([facility]) Blood BLOOD SPECIMEN / Unknown Venipuncture / Unknown 12/24/2024 8:24 AM CDT 12/24/2024 8:37 AM CDT Fred Jo MD LAB - CHEMISTRY ORDERAB LES Final Result [facility]) [address] [place] [address] * (ABNORMAL) CBC W AUTO DIFFERENTIAL (12/24/2024 8:24 AM [facility]) WBC 9.4 4.0 - 10.7 x10E9/L 12/24/2024 8:53 AM [facility] RBC Count 3.91 3.90 - 5.20 x10E12/L 12/24/2024 8:53 AM [facility] Hemoglobin 10.3(L) 11.9 - 15.8 g/dL 12/24/2024 8:53 AM [facility] Hematocrit 32.5(L) 34.8 - 46.1 % 12/24/2024 8:53 AM [facility] MCV 83.1 80.0 - 98.0 fL 12/24/2024 8:53 AM [facility] MCH 26.3(L) 26.7 - 33.6 pg 12/24/2024 8:53 AM [facility] MCHC 31.7 31.7 - 36.3 g/dL 12/24/2024 8:53 AM [facility] RDW-CV 18.9(H) 11.3 - 14.8 % 12/24/2024 8:53 AM [facility] Platelet Count 239 150 - 420 x10E9/L 12/24/2024 8:53 AM [facility] MPV 10.7 7.8 - 11.4 fL 12/24/2024 8:53 AM [facility] Preliminary Absolute Neutrophil 7.02 1.60 - 7.50 x10E9/L 12/24/2024 8:53 AM [facility] Neutrophil % 74.8(H) 41.0 - 74.0 % 12/24/2024 8:53 AM [facility] Lymphocyte % 13.5(L) 17.0 - 47.0 % 12/24/2024 8:53 AM [facility] Monocyte % 8.7 3.0 - 11.0 % 12/24/2024 8:53 AM [facility] Eosinophil % 2.2 0.0 - 7.0 % 12/24/2024 8:53 AM [facility] Basophil % 0.5 0.0 - 1.6 % 12/24/2024 8:53 AM [facility] Immature Granulocytes % 0.3 0.0 - 1.0 % 12/24/2024 8:53 AM [facility] Neutrophil Absolute 7.02 1.60 - 7.50 x10E9/L 12/24/2024 8:53 AM [facility] Lymphocyte Absolute 1.27 1.00 - 4.40 x10E9/L 12/24/2024 8:53 AM [facility] Monocyte Absolute 0.82 0.15 - 1.00 x10E9/L 12/24/2024 8:53 AM [facility] Eosinophil Absolute 0.21 0.00 - 0.60 x10E9/L 12/24/2024 8:53 AM [facility] Basophil Absolute 0.05 0.00 - 0.13 x10E9/L 12/24/2024 8:53 AM [facility] Blood BLOOD SPECIMEN / Unknown Venipuncture / Unknown 12/24/2024 8:24 AM CDT 12/24/2024 8:40 AM CDT us Fred Jo MD LAB - HEMATOLOGY ORDERA BLES Final Result [facility] [address] [place] [address], [facility] [phone] * (ABNORMAL) COMPREHENSIVE METABOLIC PANEL (12/24/2024 8:24 AM CDT) BUN 46(H) 7 - 26 mg/dL 12/24/2024 9:07 AM [facility] Creatinine 8.50(H) 0.56 - 0.96 mg/dL 12/24/2024 9:07 AM [facility] Sodium 139 136 - 145 mmol/L 12/24/2024 9:07 AM [facility] Potassium 3.4(L) 3.5 - 4.5 mmol/L 12/24/2024 9:07 AM [facility] Chloride 101 98 - 107 mmol/L 12/24/2024 9:07 AM [facility] CO2 20(L) 22 - 29 mmol/L 12/24/2024 9:07 AM [facility] Glucose 158(H) 70 - 99 mg/dL 12/24/2024 9:07 AM [facility] Calcium 8.4 8.4 - 10.2 mg/dL 12/24/2024 9:07 AM [facility] Protein Total 6.0 6.0 - 8.3 g/dL 12/24/2024 9:07 AM [facility] Albumin 2.5(L) 3.4 - 5.0 g/dL 12/24/2024 9:07 AM [facility] Bilirubin Total 0.3 0.2 - 1.2 mg/dL 12/24/2024 9:07 AM [facility] Alkaline Phosphatase 90 40 - 150 U/L 12/24/2024 9:07 AM [facility] ALT 9 5 - 55 U/L 12/24/2024 9:07 AM [facility] AST 12 5 - 34 U/L 12/24/2024 9:07 AM [facility] Anion Gap 18(H) 6 - 16 12/24/2024 9:07 AM [facility] BUN/Creatinine Ratio 5(L) 7 - 23 12/24/2024 9:07 AM [facility] Osmolality Calculated 303(H) 275 - 295 mOsm/kg 12/24/2024 9:07 AM [facility] Albumin/Globulin Ratio 0.7(L) 1.1 - 2.3 12/24/2024 9:07 AM [facility] eGFR by CKD-EPI 5(L) >=90 mL/min/1.7 3 m2 12/24/2024 9:07 AM [facility] Blood BLOOD SPECIMEN / Unknown Venipuncture / Unknown 12/24/2024 8:24 AM [facility] 12/24/2024 8:41 AM [facility] us Fred Jo MD LAB - CHEMISTRY ORDERAB LES Final Result [address] [address], [facility] [phone] * (ABNORMAL) PHOSPHORUS BLOOD (12/24/2024 8:24 AM CDT) Phosphorus 10.6(H) 2.9 - 5.1 mg/dL 12/24/2024 9:07 AM CDT [facility] Blood BLOOD SPECIMEN / Unknown Venipuncture / Unknown 12/24/2024 8:24 AM CDT 12/24/2024 8:41 AM CDT us Fred Jo MD LAB - CHEMISTRY ORDERAB LES Final Result [address] [address], [facility] [phone] * HEPATITIS B CORE ANTIBODY (12/24/2024 8:24 AM CDT) HBc Antibody Total Non-reacti ve Non-reacti ve 12/24/2024 9:31 AM CDT [facility] Blood BLOOD SPECIMEN / Unknown Venipuncture / Unknown 12/24/2024 8:24 AM CDT 12/24/2024 8:37 AM CDT us Fred Jo MD LAB - CHEMISTRY ORDERAB LES Final Result [address] [address], [facility] [phone] * HEPATITIS B SURFACE ANTIGEN W RFLX CONFIRMATION (12/24/2024 8:24 AM CDT) Hepatitis B Virus Surface Antigen Non-reacti ve Non-reacti ve 12/24/2024 9:31 AM CDT [facility] Blood BLOOD SPECIMEN / Unknown Venipuncture / Unknown 12/24/2024 8:24 AM CDT 12/24/2024 8:37 AM CDT us Fred Jo MD LAB - CHEMISTRY ORDERAB LES Final Result Performing Organization Address City/[facility]/ZIP Co de Phone Number [facility] [address] [address], [facility] [phone] * HEPATITIS C ANTIBODY (12/24/2024 8:24 AM CDT) [facility] Hepatitis C Antibody Non-react lakesha Non-reac tive 12/24/2024 9:31 AM CDT [facility] Comment:Hepatitis C Antibody screen indicates no serologic evidence of past or current infection with Hepatitis C Virus. Patients with unexplained liver disease who are immunocompromised or suspected of having acute Hepatitis C infection may benefit from Nucleic Acid Test (GONZALO) for Hepatitis C Viral RNA to confirm Hepatitis C status. Blood BLOOD SPECIMEN / Unknown Venipuncture / Unknown 12/24/2024 8:24 AM CDT 12/24/2024 8:37 AM CDT Fred Jo MD LAB - CHEMISTRY ORDERAB LES Final Result Performing Organization Address [facility]/[place] Co de Phone Number [facility] [address] [address], [facility] [phone] * HEPATITIS A ANTIBODY (12/24/2024 8:24 AM CDT) [facility] Hepatitis A Virus Antibody Total Negative Negative 12/26/2024 10:04 PM CDT [employer] ([facility]) Comment: Performed By: [employer] [address] [place] [address] Traveling Representative: Gerard Davidson MD, PhD CLIA Number: [id number] Blood BLOOD SPECIMEN / Unknown Venipuncture / Unknown 12/24/2024 8:24 AM CDT 12/24/2024 8:37 AM CDT Fred Jo MD LAB - CHEMISTRY ORDERAB LES Final Result Performing Organization Address City/[facility]/ZIP Co de Phone Number [employer] ([facility]) [address] [place] [address] * LIPID PROFILE (12/24/2024 8:24 AM CDT) Cholesterol Total 108 <200 mg/dL 12/24/2024 9:07 AM T [facility] HDL 51 >40 mg/dL 12/24/2024 9:07 AM T [facility] Comment: ATP III Classification of HDL Cholesterol: <40 mg/dL: Considered a major risk factor. >60 mg/dL: Considered a negative risk factor. LDL Calculated 44 <100 mg/dL 12/24/2024 9:07 AM T [facility] Comment: ATP III Classification of LDL Cholesterol: <100 mg/dL: Optimal 100 - 129 mg/dL: Near Optimal/Above Optimal 130 - 159 mg/dL: Borderline High 160 - 189 mg/dL: High >190 mg/dL: Very High Triglycerides 66 <150 mg/dL 12/24/2024 9:07 AM [facility] Comment: ATP III Classification of Triglycerides: <150 mg/dL: Normal 150 - 199 mg/dL: Borderline High 200 - 400 mg/dL: High >500 mg/dL: Very High Blood BLOOD SPECIMEN / Unknown Venipuncture / Unknown 12/24/2024 8:24 AM CDT 12/24/2024 8:41 AM CDT us Ferd Jo MD LAB - CHEMISTRY ORDERAB LES Final Result [facility] [address] [place] [address], [facility] [phone] * XR Knee Bilat Standing 1Vw (12/02/2024 12:44 PM CDT) Anatomical Region Laterality Modality Lower Extremity Computed Radiogr aphy 12/02/2024 12:5 2 PM CDT Impressions 12/02/2024 12:53 PM CDT IMPRESSION: 1. Mild primary osteoarthritis and chondrocalcinosis > Interpreting Provider: Fab Leahy MD on 12/02/2024 12:53 PM Narrative 12/02/2024 12:53 PM CDT PROCEDURE: XR KNEE BILAT STANDING 1VW DATE/TIME OF EXAM: 12/02/2024 12:44 PM CLINICAL INFORMATION: None relevant/not provided if blank. Indication: M17.0: Bilateral primary osteoarthritis of knee Additional History: COMPARISON: None. FINDINGS: In the right knee the medial compartment is slightly narrowed and with accompanying spurs. The lateral compartment is preserved. No fracture. There is subtle bicompartmental chondrocalcinosis In the left knee there is bicompartmental chondrocalcinosis. There is perhaps slight narrowing in the medial compartment although the finding is questionable. No fracture. Procedure Note Fab Leahy MD - 12/02/2024 PROCEDURE: XR KNEE BILAT STANDING 1VW DATE/TIME OF EXAM: 12/02/2024 12:44 PM CLINICAL INFORMATION: None relevant/not provided if blank. Indication: M17.0: Bilateral primary osteoarthritis of knee Additional History: COMPARISON: None. FINDINGS: In the right knee the medial compartment is slightly narrowed and with accompanying spurs. The lateral compartment is preserved. No fracture. There is subtle bicompartmental chondrocalcinosis In the left knee there is bicompartmental chondrocalcinosis. There is perhaps slight narrowing in the medial compartment although the findingis questionable. No fracture. IMPRESSION: 1. Mild primary osteoarthritis and chondrocalcinosis > Interpreting Provider: Fab Leahy MD on 12/02/2024 12:53 PM Jr Obregon MD DIAGNOSTIC IMAGING ORDERABLES Fi nal Result * HOLD HLA SPECIMEN (11/29/2024 10:43 AM [employer]) Only the most recent of2 resultswithin the time period is included. Hold HLA Specimen 12/04/2024 12:02 PM CDT [facility] ([facility]) Comment:The Hold HLA specime n has been received into the lab and will be held for 5 years at 4 degrees. Blood BLOOD SPECIMEN / Unknown 11/29/2024 10:43 AM [facility] 12/04/2024 10:43 AM CDT Quintin Snow MD LAB - BLOOD BANK ORDERABLES F inal Result [facility] ([facility]) [address] * BONE DENSITY AXIAL SKELETON(1OR MORE SITES)[id number] (02/02/2022 9:11 AM CDT) Anatomical Region Laterality Modality Other 02/02/2022 4:06 PM CDT Narrative 02/02/2022 4:15 PM CDT Examination: Dual energy x-ray absorptiometry of the lumbar spine and hip. Clinical Indication: E83.51: Hypocalcemia M80.00XA: Age-related osteoporosis with current pathological fracture, initial encounter Z13.820: Screening for osteoporosis M81.6: Localized osteoporosis ([place]) Technique: Detailed data from the exam is sent separately to the ordering physician and is also available on [employer], the Radiology Department's computerized picture archive system. Patient's height 64 in; weight 188 lb. Comparison: No prior study available for comparison. FINDINGS: BONE MINERAL DENSITY (BMD) right femoral neck: osteopenia; T-score -1.8 BONE MINERAL DENSITY (BMD) left femoral neck: osteopenia; T-score -1.6 FRAX 10 year fracture risk was not due to prior vertebral fracture. Definitions: T-score = Standard Deviation Normal: A value for bone mineral density(BMD) within 1 standard deviation of the young adult reference mean. (T-score above -1) Low bone mass(osteopenia): A value for bone mineral density(BMD) more than 1 standard deviation below the young adult mean, but less than 2.5 standard deviations below the young adult mean. ( T-score between -1 and -2.5) Osteoporosis: A value for bone mineral density 2.5 standard deviations or more below the young adult mean. ( T-score at or below -2.5) Severe osteoporosis: Osteoporosis + the presence of one or more fragility fractures. Please note that T-score values are important in determining increased risk for fractures. The T-score represents the standard deviation above or below the mean bone mineral density for young adults. With each -1 standard deviation decrease in bone mineral density, the risk for fracture doubles exponentially. A T-score of -1 will double the risk , and -2 will be 4 times the risk. As a rule of thumb, a T-score of -1 to -2.5 indicates increasing degrees of osteopenia. This report was approved by Gregory Acuña on 02/02/2022 4:08 PM . I, Dr. PRIMO ROA D.O. have personally reviewed and interpreted this examination/study. This report was electronically signed by PRIMO ROA D.O. on 02/02/2022 4:15 PM . Procedure Note Primo Roa, DO - 02/02/2022 Examination: Dual energy x-ray absorptiometry of the lumbar spine andhip. Clinical Indication: E83.51: Hypocalcemia M80.00XA: Age-related osteoporosis with current pathological fracture, initial encounter Z13.820: Screening for osteoporosis M81.6: Localized osteoporosis ([place]) Technique: Detailed data from the exam is sent separately to theordering physician and is also available on [employer], the Radiology Department's computerized picture archive system. Patient's height 64 in; weight 188 lb. Comparison: No prior study available for comparison. FINDINGS: BONE MINERAL DENSITY (BMD) right femoral neck: osteopenia; T-score -1.8 BONE MINERAL DENSITY (BMD) left femoral neck: osteopenia; T-score -1.6 FRAX 10 year fracture risk was not due to prior vertebral fracture. Definitions: T-score = Standard Deviation Normal: A value for bone mineral density(BMD) within 1 standarddeviation of the young adult reference mean. (T-score above -1) Low bone mass(osteopenia): A value for bone mineral density(BMD) morethan 1 standard deviation below the young adult mean, but less than 2.5 standard deviations below the young adult mean. ( T-score between -1 and -2.5) Osteoporosis: A value for bone mineral density 2.5 standard deviationsor more below the young adult mean. ( T-score at or below -2.5) Severe osteoporosis: Osteoporosis + the presence of one or morefragility fractures. Please note that T-score values are important in determining increased risk for fractures. The T-score represents the standard deviation aboveor below the mean bone mineral density for young adults. With each -1 standard deviation decrease in bone mineral density, the risk forfracture doubles exponentially. A T-score of -1 will double the risk , and -2will be 4 times the risk. As a rule of thumb, a T-score of -1 to -2.5indicates increasing degrees of osteopenia. This report was approved by Gregory Acuña on 02/02/2022 4:08 PM . I, Dr. PRIMO ROA D.O. have personally reviewed and interpreted this examination/study. This report was electronically signed by PRIMO ROA D.O. on02/02/2022 4:15 PM . us Francesca Calderón LIBRARY SUPERVISOR-TAR AND AMMONIA PUMP OPERATOR DEXA ORDERABLES Final R esult * COLONOSCOPY (11/17/2021) us Historical Provider MD SCANNING ONLY Final Res ult * MAMMOGRAM (11/09/2021) Anatomical Region Laterality Modality Other Historical Provider MD SCANNING ONLY Final Res ult from Last 3 Months or Most Recently Relevant to Health Maintenance Insurance MEDICARE [facility] MEDICARE [facility] Advance Directives * Full Code (Latest Code Status on File) Date Activated Date Inactivated Comments 10/14/2022 4:39 AM 10/14/2022 4:14 PM * Full Code Date Activated Date Inactivated Comments 06/07/2022 4:51 PM 06/13/2022 7:38 PM * Full Code Date Activated Date Inactivated Comments 04/22/2022 6:39 PM 04/28/2022 3:58 PM * Full Code Date Activated Date Inactivated Comments 01/27/2022 1:26 PM 01/30/2022 12:05 PM * Full Code Date Activated Date Inactivated Comments 01/27/2022 11:24 AM 01/27/2022 1:13 PM Care Teams Clinical Research Analyst Relationship Specialty Start Date End Date Compa Sam MD [address] [place] [phone] PCP - General 12/28/22 Compa Sam MD [address] [facility] [address] [place] [address] Family Medicine 09/29/22 Quintin Hope MD [address] [facility] [address] [place] [address] Nephrology 04/10/24
[2025-01-20 10:12] VITALS: BP 167/95; PULSE 90; RESP 16; TEMP 36.1; O2SAT 99; BMI 29.2
[2025-01-20] MEDS: SODIUM CHLORIDE 0.9% IV 500 ML 10 ML IV CONT (10:44)
--- NOTE | 2025-01-20 10:50 | WPDANESEPPF ---
Anes - Initial Pre Proc Eval Procedure: Operation Date: 01/20/25 11:00 Proposed Procedures p Colonoscopy - Jason Ji MD Date/Time: 01/20/25 10:50 Surgeon: Jason Ji MD Pre Op Diagnosis: hx of colon polyps Patient Data Age: 64 Gender: F Height: 1.63 m Weight: 77.3 kg Last Vital Signs Temp 97 F L 01/20/25 10:12 Pulse 90 01/20/25 10:12 Resp 16 01/20/25 10:12 BP 167/95 H 01/20/25 10:12 Pulse Ox 99 01/20/25 10:12 O2 Del Method Room Air 01/20/25 10:12 Allergies Allergy/AdvReac Type Severity Reaction Status Date / Time amoxicillin Allergy Unknown Rash Verified 01/20/25 09:59 clavulanic acid Allergy Unknown RASH Verified 01/20/25 09:59 fentanyl AdvReac Unknown very Verified 01/20/25 09:59 emotional crying levofloxacin AdvReac Unknown Nausea And Verified 01/20/25 09:59 Vomiting Home Medications ?Medication ?Instructions ?Recorded ?Confirmed ?Type aspirin 81 mg tablet,delayed 81 mg PO DAILY 10/24/19 01/09/25 History release allopurinol 100 mg tablet 150 mg PO DAILY 07/22/22 01/20/25 History calcitriol 0.25 mcg capsule 0.25 mcg PO DAILY 07/22/22 01/20/25 History cinacalcet 30 mg tablet 60 mg PO .nightly 07/22/22 01/20/25 History cholecalciferol (vitamin D3) 100 100 mcg PO DAILY 08/09/22 01/20/25 History mcg (4,000 unit) tablet metoprolol succinate 50 mg 50 mg PO BID 08/09/22 01/20/25 History tablet,extended release 24 hr nifedipine 30 mg tablet,extended 30 mg PO HS 08/09/22 01/20/25 History release bumetanide 2 mg tablet 2 mg PO DAILY 12/02/23 01/20/25 History vitamin B complex-vitamin C-folic 1 tablet PO DAILY 12/02/23 01/20/25 History acid 0.8 mg tablet ([place]-Carol) cyclobenzaprine 5 mg tablet 5 mg PO TID PRN muscle spasm 01/15/24 01/09/25 History trazodone 50 mg tablet 50 mg PO HS 01/15/24 01/20/25 History lansoprazole 30 mg capsule,delayed 30 mg PO BID 07/07/24 01/20/25 History release nifedipine 60 mg tablet,extended 60 mg PO BID 07/07/24 01/09/25 History release rosuvastatin 20 mg tablet 20 mg PO DAILY 07/07/24 01/20/25 History sevelamer carbonate 800 mg tablet 1,600 mg PO TID 07/07/24 01/20/25 History sitagliptin phosphate 25 mg tablet 25 mg PO DAILY 07/07/24 01/20/25 History (Januvia) temazepam 7.5 mg capsule 7.5 mg PO HS 07/07/24 09/26/24 History doxazosin 1 mg tablet 4 mg PO DAILY 09/25/24 01/20/25 History tenapanor 30 mg tablet (Xphozah) 30 mg PO BID phosphate binder 09/26/24 01/20/25 History diltiazem HCl 120 mg capsule,24 120 mg PO QAM 30 days #30 caps 10/02/24 01/20/25 Rx hr,extended release hydroxyzine HCl 10 mg tablet 10 mg PO HS 01/09/25 01/20/25 History Patient hx anesthesia problems: none Family hx anesthesia problems: none Results Review: All pre-operative results and documents have been reviewed as part of the pre-operative evaluation. [facility] Past Medical History Medical History Diabetes CKD (chronic kidney disease) Patient on peritoneal dialysis HTN (hypertension) Type 2 diabetes mellitus Thrombocytopenia Chronic anemia Cytomegalovirus Gastroesophageal reflux disease Hypertension End-stage renal disease on hemodialysis Wilm's tumor of right kidney Arthritis Hyperlipidemia Renal transplant recipient Failed transplant now on hemodialysis. Surgical History Surgical History History of hysterectomy History of cholecystectomy History of appendectomy History of renal transplant (09/2018) History of right nephrectomy As a child for Wilms tumor. Family History Family History Mother Family history of thyroid disease Family history of osteoporosis Depression Hypertension Family history of elevated blood lipids Family history of arthritis Family history of chronic obstructive pulmonary disease Family history of Alzheimer's disease Family history of atrial fibrillation Sibling Family history of thyroid disease Family history of hypercholesterolemia Hypertension Father Family history of hypercholesterolemia Hypertension Family history of cardiovascular disease Family history of coronary artery disease Social History Social History Social History: Surrogate medical decision maker: Vitaly Casey, spouse. Code status: Full code. Smoking status: Never smoker Second hand tobacco smoke exposure: No Alcohol intake: never Alcohol use details: Occasional Substance use: never Substance use type: does not use Do You Feel Safe in your Home?: Yes Lack of Transportation: No Lack of Food: Never True Current Housing: I Have Housing Concerned About Future Housing: No Difficulty Paying Gas/Electric Bills: No Difficulty Paying for Meds: No Currently Unemployed: No Education: Associate Degree Difficulty w/ Childcare or Family Care: No Living arrangements: with family Additional living arrangements comments: Lives in [place] with spouse. 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 Spiritual care concerns: No Anes - Eval Final PreProcedure Day of Procedure 01/20/25 10:50 Patient weight: obese Lungs: normal air movement Airway: Mallampati scale class II Neurological: alert and oriented Last oral intake: >/= 8 hours ASA classification: IV Emergent: no Anesthetic plan: proceed Anesthesia type and monitoring: general GIVS and standard monitoring Results Review: All pre-operative results and documents have been reviewed as part of the pre-operative evaluation. ESRD on PD, DM fsbs 183 this am, Hyperlipidemia. Informed Consent: The patient's anesthetic plan and its attendant risks and benefits were discussed with the patient/family/POA. Questions were solicited and answers provided to the satisfaction of the patient/family/POA.
--- NOTE | 2025-01-20 10:59 | P.HP_ITS ---
H&P: HPI History of Present Illness Date/Time: 01/20/25 10:59 Chief Complaint: history of colon polyps Narrative: The patient has a history of colonic polyps, the last colonoscopy was in 2021. Review of Systems Review of Systems: All systems reviewed & are unremarkable except as noted in HPI and below PMFSH Past Medical History Medical History Diabetes CKD (chronic kidney disease) Patient on peritoneal dialysis HTN (hypertension) Type 2 diabetes mellitus Thrombocytopenia Chronic anemia Cytomegalovirus Gastroesophageal reflux disease Hypertension End-stage renal disease on hemodialysis Wilm's tumor of right kidney Arthritis Hyperlipidemia Renal transplant recipient Failed transplant now on hemodialysis. Surgical History Surgical History History of hysterectomy History of cholecystectomy History of appendectomy History of renal transplant (09/2018) History of right nephrectomy As a child for Wilms tumor. Family History Family History Mother Family history of thyroid disease Family history of osteoporosis Depression Hypertension Family history of elevated blood lipids Family history of arthritis Family history of chronic obstructive pulmonary disease Family history of Alzheimer's disease Family history of atrial fibrillation Sibling Family history of thyroid disease Family history of hypercholesterolemia Hypertension Father Family history of hypercholesterolemia Hypertension Family history of cardiovascular disease Family history of coronary artery disease Social History Social History Social History: Surrogate medical decision maker: Vitaly Casey, spouse. Code status: Full code. Smoking status: Never smoker Second hand tobacco smoke exposure: No Alcohol intake: never Alcohol use details: Occasional Substance use: never Substance use type: does not use Do You Feel Safe in your Home?: Yes Lack of Transportation: No Lack of Food: Never True Current Housing: I Have Housing Concerned About Future Housing: No Difficulty Paying Gas/Electric Bills: No Difficulty Paying for Meds: No Currently Unemployed: No Education: Associate Degree Difficulty w/ Childcare or Family Care: No Living arrangements: with family Additional living arrangements comments: Lives in [place] with spouse. 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 Spiritual care concerns: No Meds Home Medications and Allergies Home Medications ?Medication ?Instructions ?Recorded ?Confirmed ?Type aspirin 81 mg tablet,delayed 81 mg PO DAILY 10/24/19 01/09/25 History release allopurinol 100 mg tablet 150 mg PO DAILY 07/22/22 01/20/25 History calcitriol 0.25 mcg capsule 0.25 mcg PO DAILY 07/22/22 01/20/25 History cinacalcet 30 mg tablet 60 mg PO .nightly 07/22/22 01/20/25 History cholecalciferol (vitamin D3) 100 100 mcg PO DAILY 08/09/22 01/20/25 History mcg (4,000 unit) tablet metoprolol succinate 50 mg 50 mg PO BID 08/09/22 01/20/25 History tablet,extended release 24 hr nifedipine 30 mg tablet,extended 30 mg PO HS 08/09/22 01/20/25 History release bumetanide 2 mg tablet 2 mg PO DAILY 12/02/23 01/20/25 History vitamin B complex-vitamin C-folic 1 tablet PO DAILY 12/02/23 01/20/25 History acid 0.8 mg tablet ([place]) cyclobenzaprine 5 mg tablet 5 mg PO TID PRN muscle spasm 01/15/24 01/09/25 History trazodone 50 mg tablet 50 mg PO HS 01/15/24 01/20/25 History lansoprazole 30 mg capsule,delayed 30 mg PO BID 07/07/24 01/20/25 History release nifedipine 60 mg tablet,extended 60 mg PO BID 07/07/24 01/09/25 History release rosuvastatin 20 mg tablet 20 mg PO DAILY 07/07/24 01/20/25 History sevelamer carbonate 800 mg tablet 1,600 mg PO TID 07/07/24 01/20/25 History sitagliptin phosphate 25 mg tablet 25 mg PO DAILY 07/07/24 01/20/25 History (Januvia) temazepam 7.5 mg capsule 7.5 mg PO HS 07/07/24 09/26/24 History doxazosin 1 mg tablet 4 mg PO DAILY 09/25/24 01/20/25 History tenapanor 30 mg tablet (Xphozah) 30 mg PO BID phosphate binder 09/26/24 01/20/25 History diltiazem HCl 120 mg capsule,24 120 mg PO QAM 30 days #30 caps 10/02/24 01/20/25 Rx hr,extended release hydroxyzine HCl 10 mg tablet 10 mg PO HS 01/09/25 01/20/25 History Allergies Allergy/AdvReac Type Severity Reaction Status Date / Time amoxicillin Allergy Unknown Rash Verified 01/20/25 09:59 clavulanic acid Allergy Unknown RASH Verified 01/20/25 09:59 fentanyl AdvReac Unknown very Verified 01/20/25 09:59 emotional crying levofloxacin AdvReac Unknown Nausea And Verified 01/20/25 09:59 Vomiting Vital Signs Vital Signs - 24 hr 01/20/25 10:12 Temperature 97 F L Pulse Rate 90 Respiratory Rate 16 Blood Pressure 167/95 H Pulse Oximetry 99 Oxygen Delivery Room Air Exam Const: General: cooperative and healthy appearing Resp: Effort & Inspection: normal respiratory effort and able to speak in complete sentences Auscultation: clear to auscultation bilaterally Cardio: Rate: regular rate Rhythm: regular rhythm GI: Inspection: normal to inspection GI Palp: No No hepatosplenomegaly present Auscultation: normal bowel sounds Rectal Exam: deferred Skin: General skin exam: normal color Psych: Appearance: grossly normal Mental Status: mental status grossly normal Assessment and Plan Assessment and plan (1) History of colonic polyps: Code(s): Z86.0100 - Personal history of colon polyps, unspecified Status: Acute Assessment and Plan: The patient is deemed a good candidate for the procedure. Consent signed. Will proceed.
[2025-01-20 12:21] VITALS: BP 129/85; PULSE 80; RESP 21; O2SAT 99
[2025-01-20 12:31] VITALS: BP 142/84; PULSE 81; RESP 22; O2SAT 99
[2025-01-20 12:41] VITALS: BP 142/89; PULSE 74; RESP 25; O2SAT 100
--- NOTE | 2025-01-20 12:57 | SUR.PHASEII ---
Post-op BS 222 at 12:40
== END 2025-01-20 13:05 | disposition home or self-care (01) ==
PROVIDERS: PCP Family Medicine; Referring Provider Internal Medicine Gastroenterology; Visit Provider Internal Medicine Gastroenterology
PROC: 0DJD8ZZ Inspection of Lower Intestinal Tract, Via Natural or Artificial Opening Endoscopic (ICD-10-PCS; CPT 45378; principal; 2025-01-20 11:00)
DX: Z12.11 Encounter for screening for malignant neoplasm of colon (principal); D12.0 Benign neoplasm of cecum; D12.2 Benign neoplasm of ascending colon; D12.3 Benign neoplasm of transverse colon; D12.5 Benign neoplasm of sigmoid colon
CPT/HCPCS: 45385; 45381; 88305; J2003; J2704; J7040

== ENCOUNTER 2025-02-14 10:34 | Inpatient (IN) | payer MEDICARE, BC, SELFPAY ==
--- NOTE | ~2025-02-14 | US_ITS ---
EXAM: RENAL ULTRASOUND HISTORY: evaluate transplant kidney for infection/abscess COMPARISON: 02/14/2025 (CT examination of the abdomen and pelvis) FINDINGS: [facility] [place] RIGHT KIDNEY: Surgically absent. [facility] LEFT KIDNEY: Poorly visualized secondary to shadowing artifact from multiple calcifications. TRANSPLANT KIDNEY: Within the left lower quadrant of the abdomen is the reportedly failed kidney transplant. This kidney measures 12.3 x 4.9 x 7.4 cm. No surrounding free fluid is identified. No intrarenal collection of fluid is noted. BLADDER: Poorly visualized, insufficient for comment. IMPRESSION: No infection/abscess appreciated within the failed left lower quadrant transplant kidney, as detailed above. Reviewed, dictated and finalized at location A. IMPRESSION: No infection/abscess appreciated within the failed left lower quadrant transpla nt kidney, as detailed above.
--- NOTE | ~2025-02-14 | CT_ITS ---
Non-contrast CT scan of the Abdomen and Pelvis Clinical indication: Abdominal pain Technique: 2.5 mm axial scans were obtained through the abdomen and pelvis without intravenous or or al contrast. Dose reduction technique was used on this scan by utilizing automated exposure control a nd iterative reconstruction technique. The dose-length product (DLP) was 626.34 mGy-cm. COMPARISON: 09/24/2024 Findings: Images through the lung bases reveal bibasilar atelectasis or scarring. Probable prior right nephrectomy. [place] left kidney demonstrates innumerable small simple and hyperd ense presumed cysts, as well as a cyst with dense peripheral calcification. No left hydronephrosis is evident. There is diffuse left renal cortical thinning. There is a left lower quadrant transplant ki dney, with extensive perinephric haziness at the transplant renal hilar region. No definite hydroneph rosis of the transplant or stone. The liver, spleen, and pancreas appear normal. Stable small bilateral adrenal nodules. Cholecystectom y clips are present. There is no aortic aneurysm. There is no evidence of bowel obstruction. Images through the pelvis were performed. Urinary bladder unremarkable. No pelvic mass evident. There is moderate abdominopelvic ascites with peritoneal dialysis catheter present. Stable thoracal lumbar spinal fixation hardware. Impression: Left lower quadrant transplant kidney without hydronephrosis or stone. There is extensive hazy infilt ration of the fat at the left transplant hilar region and surrounding mesenteric fat. This is of unce rtain etiology. Correlate for infectious or inflammatory process of the transplant kidney. Somewhat atrophic left [place] kidney with innumerable presumed simple and hyperdense cysts, but no hy dronephrosis. Presumed prior right nephrectomy. Moderate abdominopelvic ascites with peritoneal dialysis catheter present. Reviewed, dictated and finalized at [facility]. Impression: Left lower quadrant transplant kidney without hydronephrosis or stone. There is extensive hazy infiltration of the fat at the left transplant hilar region and surrounding mesenteric fat. This is of uncertain etiology. Correlate for infec tious or inflammatory process of the transplant kidney. Somewhat atrophic left [place] kidney with innumerable presumed simple and hyper dense cysts, but no hydronephrosis. Presumed prior right nephrectomy. Moderate abdominopelvic ascites with peritoneal dialysis catheter present.
--- NOTE | ~2025-02-14 | CT_ITS ---
CLINICAL INDICATION: Abdominal distention in a peritoneal dialysis patient. COMPARISON: Reference is made to CT examination of the abdomen and pelvis performed 48 hours earlier. Reference was also made to prior CT examinations of the abdomen and pelvis dating back to 09/24/2024 TECHNIQUE: Multiple contiguous axial images of the abdomen and pelvis were performed following the ad ministration of with 100 mL Omnipaque-350 intravenous contrast The dose-length product (DLP) was 571.89 mGy-cm. Automated exposure control and iterative reconstruction technique were employed. FINDINGS/OBSERVATIONS: Visualized lower thorax: Opacification of the superior segment of the right lower lobe in a band like configuration with air b ronchograms, an interval change from prior. Small left-sided pleural effusion with adjacent compressive atelectasis. The heart is enlarged, without pericardial effusion. Small hiatal hernia is present. Liver: The liver demonstrates homogeneous enhancement and is not enlarged. Gallbladder and biliary system: The gallbladder is surgically absent. Dilatation of the intrahepatic biliary system, as well as the extrahepatic bile ducts with prior chol ecystectomy. This finding is unchanged from examination dated 09/24/2024. Pancreas: The pancreas enhances homogeneously without ductal dilatation. Spleen: Punctate calcifications identified within the splenic parenchyma, suggesting prior granulomat ous disease. The remainder of the spleen otherwise enhances homogeneously and is not enlarged. Kidneys: The [place] right kidney is surgically absent. The [place] left kidney is markedly atrophic with multiple cysts of varying sizes and density, but frias s demonstrate contrast enhancement. Rim calcifications identified within the anterior margin of the n ative left kidney Within the left lower quadrant, is a transplant kidney which demonstrates infiltration of the soft ti ssue at the level of the renal pelvis as well as the surrounding soft tissues. Wedge shaped defects in enhancement are identified with global enlargement of the transplant kidney s uggesting pyelonephritis. No gas is identified within the collecting system or within the renal parenchyma. No contrast excretory images were obtained to evaluate for abnormalities of contrast excretion. Adrenal glands: Unremarkable. Gastrointestinal tract: Colonic diverticulosis without surrounding inflammatory change. Fecal stasis within the colon. Appendix: The appendix is not definitively visualized. However, no pericecal inflammatory change is identified suggest the presence of acute appendicitis. Vasculature: Calcified atherosclerotic disease. Lymph nodes: No pathologically enlarged or morphologically suspicious lymph nodes within the retroperitoneum or at the root of the mesentery. Pelvic structures: The bladder is only minimally distended, and otherwise unremarkable. The uterus is either surgically absent or markedly atrophic. Peritoneal dialysis catheter identified within the pelvis. No significant free fluid identified. Body wall and musculoskeletal: Age advanced degenerative disease within the lower thoracic and lumbosacral spines with S-shaped curv ature of the lower thoracic and lumbosacral spines. IMPRESSION: Findings within the transplant kidney for which pyelonephritis is suspected. No evidence of emphysematous pyelonephritis. Opacification of the superior segment of the right lower lobe in a band like configuration with air b ronchograms, an interval change from prior, for which a focal infiltrate is suspected. Reviewed, dictated and finalized at location A. IMPRESSION: Findings within the transplant kidney for which pyelonephritis is suspected. No evidence of emphysematous pyelonephritis. Opacification of the superior segment of the right lower lobe in a band like co nfiguration with air bronchograms, an interval change from prior, for which a f ocal infiltrate is suspected.
[2025-02-14 10:36] VITALS: BP 152/86; PULSE 110; RESP 16; TEMP 36.8; O2SAT 97
--- OUTSIDE RECORDS SUMMARY | 2025-02-14 10:37 | XMS_ITS | Clinical Summary ---
Author Organization [facility] [place] Address [address] [facility] [place] [address] Care Team Providers Care Rotational Moulding Operator Name Role Phone Compa Sam MD Unavailable [phone] Compa Sam MD Primary Care Provider [phone] Quintin Hope MD Unavailable [phone] Source Comments [facility],non-owned Affiliates and Associated Physician Practices is amultiple site organization consisting of ambulatory clinics and hospital sitesin [place], [place], [place] and [place]. This disclosure is being madepursuant to the Care Everywhere program and may not contain all information available regarding this patient. Last updated 18.[facility] Allergies Active Allergy Reactions Criticality Noted Date [...] evening meal 180 tablet 4 2 Active calcitriol (Rocaltrol) 0.25 MCG capsuleIndicati ons:Hypocalcemi a [...] Gluc Sensor (FreeStyle Rubia 2 Sensor Systm) [facility] 3 Active bumetanide (Bumex) 2 MG tablet [...] Pre-transplant evaluation for kidney transplant 10/24/2022 Overview (2025): Images from the original note were not included. Brandy Smith 1960 Referring Diver Pumper: Quintin Hope Listing Date: 05/10/2023 Dialysis Info: Type: HD M,W,F Time: 06/16/2022 Blood Type: O POS Body mass index is 31.76 kg/m . ALERTS Listed for Hep C kidneys Induction Method: Immunosuppression Induction Method/Plan: Antithymocyte globulin (rabbit) (Thymoglobulin) 5 mg/kg Electric Trucker: Dr. 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 Prior to that was Urosepsis? 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 Cameron at [facility] Esophageal reflux ESRD on hemodialysis (CMS/HCC) Gallstones H/O kidney removal 1959 right for a tumor Hematuria History of blood transfusion Hypercholesteremia Hyperparathyroidism (CMS/HCC) partial thyroidectomy at age 39, adenoma Hypertension dx'd in 2007 Kidney transplant recipient 10/13/2018 left side placement, JANICE, received at [facility] PONV (postoperative nausea and vomiting) Primary gout [...] Renal Biopsy multiple s/p kidney txp, [facility] (x2) and the rest here at [facility] VASCULAR PROCEDURE/SURGERY Right 10/13/2022 Right; Right brachial BRACIAL arterial venous fistula creation VASCULAR PROCEDURE/SURGERY Right 12/07/2022 Right; RIGHT ARTERIOVENOUS GRAFT PLACEMENT Transplant Surgery Clinic Appt w/: Dr. Jo 01/27/2025 (Note Pending) Transplant Surgery Clinic Appt w/: Dr. Hollins Date: 01/15/2024 Assessment & Plan: 63 y/o F pt w/ complicated hx including Wilms tumor requiring R nephrectomy in s, Renal txp in 2018 c/b graft failure, Overall acceptable candidate for transplant Plan Discussed different types donors including LDs,HCV + Caitie Hollins MD vegetable loader machine operator Transplant Surgery Clinic Appt w/: Dr. Benjamin Date: 10/25/2022 Nephrology Clinic Appt w/: Dr. Edmond Date: 10/25/2022 HPI: Patient is a 62 year old white female with history of ESRD 2/2 unknown etiology; now s/p living unrelated donor transplant from her 10/13/2018 which was done at [facility] ( ). This was HLA 2 A, [...] dosing ( according to Dr. Lorenzo, her electronic heat seal operator). Eventually MPA was reduced to 360 mg daily due to neutropenia and prednisone was stopped in 2018 by . [...] of her kidney disease is: Rejection. Her [place] kidney disease is still undetermined. I discussed [...] During the clinic visit today with Brandy Smith, the following information and risks regarding [...] followup in PRN. Rina Tracy PA-C Physician Licensed Investment Sales Assistant in Internal Medicine Bassam Moran MD Professor of Internal Medicine No orders of the defined types were placed in this encounter. Nephrology: 04/18/[address] Edmond HPI: Patient is a 62 year old white female with history of ESRD 2/2 unknown etiology; now s/p living unrelated donor transplant from her 10/13/2018 which was done at [facility] ( ). This was HLA 2 A, [...] dosing ( according to Dr. Lorenzo, her electronic heat seal operator). Eventually MPA was reduced to 360 mg [...] to volume overload & HTN. Discontinue Belatacept. Custodial Immunosuppression Use Currently on: Belatacept monthly as [...] neurological changes CT HEAD WO CONTRAST Order: [id number] Status: Final result Visible to patient: Yes (seen) Next appt: 12/20/2022 at 10:20 AM in Transplant ([facility] TXP SURG 302) Dx: Acute nonintractable headache, unspec... 0 Result Notes Details Reading Physician Reading Date Result Priority Dwain Alcala MD [phone] 10/21/2021 Richy John DO [phone] 10/21/2021 Narrative & Impression EXAMINATION: CT OF [...] internal capsule. Dictated by Richy John D.O. (Incident Response Analyst) I, Dr. DWAIN ALCALA have personally reviewed [...] follows q 3-[address] Foreman [facility] path reports: Pathology: Cardiology: 10/25/2024 HPI Brandy [...] demonstrated. Electronically Signed By: Vishal Pittman MD, [facility] 2024-12-29 4:16:59 PM CDT Holter monitor: 01/19/2023 [...] Benjamin Study Duration: Test Start 28-Dec-2022 13:46:12 Mon Test End 11-Jan-2023 00:00:00 Wed Test Duration 13d 10h 13m Analysis Duration 5d 23h 20m Summary: The observed rhythms are sinus rhythm to sinus tachycardia . * The Maximum Heart Rate recorded was 192 bpm, Day :25:45 pm, the Minimum Heart Rate recorded [...] No sustained arrhythmias. Pertinent Previous Committee Presentations: PSC 10/10/2024 Committee Review Decision: Make Inactive Prior Transplants: N/A EPTS: 88 at 10/10/2024 12:47 PM Calculated from: Age: 64 years Has Diabetes: Yes Prior solid organ transplant: No Dialysis: 2 years 3 months Committee Discussion Details: Pt presented to review recent hospitalization at [place]. Pt treated for Sepsis infection. Reviewed positive blood cultures for Staph aureus. Reviewed Echo and LHC results. Echo shows EF 30-35%, Takotsubo cardiomyopathy (Broken Heart syndrome). LHC report shows no CAD yet NSTEMI (EF 50%). Per team, make inactive for 3 months. Pt will need Cardiac clearance then repeat Echo and represent. [facility] 04/11/2024 Committee Review Decision: Remain Active Prior Transplants: N/A EPTS: 84 at 04/11/2024 1:23 PM Calculated from: Age: 64 years Has Diabetes: Yes Prior solid organ transplant: No Dialysis: 1 year 9 months Committee Discussion Details: Pt presented at [facility] for Hep C kidney listing. Reviewed past [...] Method/Plan: Antithymocyte globulin (rabbit) (Thymoglobulin) 5 mg/kg [facility] note: 04/13/2023 Induction Method: Immunosuppression Induction Method/Plan: Antithymocyte globulin (rabbit) (Thymoglobulin) 3 mg/kg *pt still on belatacept, will get repeat DSAs once off, may need to change induction plan* Committee Discussion Details: Pt's case presented at [facility] today for approval to list. HH and [...] Committee Discussion Details: Pt's case presented at [facility] to discuss her candidacy for txp. Team [...] will be reported in an addendum. at 1901 Microscopic Description and Comment 1 H&E, 1 [...] mesangial hypercellularity. Glomeruli show increased intraluminal leukocytes (glomerulitis), and numerous glomerular capillaries show double-contour basement [...] capillaries show an increase in intraluminal leukocytes (capillaritis). (DSB) Clinical History The patient is a 62-year-old woman with diabetes mellitus who underwent renal transplantation in 2019. She presents with creatinine above baseline and proteinuria and underwent percutaneous needle biopsy of the renal allograft. Clinical differential diagnosis list includes antibody-mediated rejection and focal segmental glomerulosclerosis (FSGS). Previous renal allograft biopsy ([id number]) showed light microscopic findings consistent with acute [...] glomerular basement membrane label. Fibrinogen: Nonspecific label. Balfour: 3+ cast label. Lambda: 3+ cast label. Addendum 1 Electron Microscopy: [id number]. Zef-ycaxvschhx-qxmfd, mhxxdallb-rzgw-nimbiae sections of five blocks are reviewed; one [...] will be reported in an addendum. at 1530 Microscopic Description and Comment 1 H&E, 1 Hein silver, 1 PAS, 1 trichrome. Sections show fibrous connective tissue and needle cores of renal parenchyma comprising cortex and medulla, the former containing up to 11 glomeruli, up to 2 of which are globally sclerotic. Diffusely, nonsclerotic glomeruli show mild mesangial expansion and leukocyte margination in capillary lumina (glomerulitis); focally, nonsclerotic glomeruli show mesangial hypercellularity. An [...] no arteritis. Paratubular capillaries show leukocyte margination (capillaritis). (DSB) Clinical History The patient is a [...] glomerular basement membrane label. Fibrinogen: Nonspecific label. Balfour: 3+ cast label. Lambda: 3+ cast label. C4d: Negative paratubular capillary label. Addendum 1 Electron Microscopy: [id number]. Fmd-onocomtlcb-lhpvo, udgqpxvzm-oery-cwidnfn sections of two blocks are reviewed; one is selected for ultrastructural analysis. Transmission electron microscopic analysis of a single glomerulus shows moderate effacement of visceral epithelial foot processes, reduced endothelial fenestrations, a moderate increase in mesangial matrix, and segmental mesangial interposition. 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 Kidney allograft bx: Completed at [facility] (14 days post txp) EK03/25/2023 Component Ref Range & Units 7 mo ago Heart Rate bpm 77 DC Interval ms 187 P [place] deg 30 QRS Interval ms 89 QT Interval ms 418 QTcB (Best for HR 60-90 bpm) ms 475 QTCf ms 454 QRS [place] deg 19 T Wave [place] deg 27 EKG Impression - NORMAL ECG [...] in size. Limited Echo for EF: 11/21/2024 ([facility]) CONCLUSIONS: Normal left ventricular systolic function [...] negative for dobutamine induced wall motion abnormalities. LHC: 09/27/2024 LHC: 07/12/2018 CXR: 12/24/2024 IMPRESSION: Left [...] nondilated. Normal spleen and adrenal glands. The [place] right kidney is absent. There is cystic degeneration of the [place] left kidney with innumerable simple and hemorrhagic [...] IPMN seen on MRI Angio completed at [facility] in 04/2022 COMPARISON: MRI angiography of the [...] hemorrhagic cysts are present throughout the left [place] kidney. A single left renal artery is present and normal in caliber. There is no [place] right kidney Transplant kidney in the left [...] Dates: None Previous Recommendations: None Presenter: Sourav Technical Publications Writer: None Interventional Radiologist: None Surgeon: Sourav Transplant [...] Question: Review imaging; discuss next steps/recommendations Labs: [facility] Latest Reference Range & Units 11/07/22 12:06 [...] intensity cysts are present throughout the left [place] kidney. The right kidney is not seen [...] Tumor Board follow up: 04/06/2023 Presenter: Sourav Technical Publications Writer: None Interventional Radiologist: None Surgeon: Sourav Transplant [...] None Question: Review MRI and discuss Labs: [facility] Latest Reference Range & Units 11/07/22 12:06 [...] intensity cysts are present throughout the left [place] kidney suggestive of hemorrhagic/proteinaceous content. Some cysts [...] - quant gold negative Colonoscopy: Pathology report: Next colonoscopy was done on 01/20/25 at [place] but prep not sufficient. They are rescheduling her in 6 mo with 2 day prep. Mammogram: 06/19/2024 Pap: GIGI with SBO 11/21/2000 - records scanned in under media Pathology: Panorex/Dental: SW: 12/31/2024 Clinical Social Work Impression: It is the impression of this hospital social worker that Brandy Smith has several positive factors for Kidney transplant candidacy from a psychosocial perspective. Patient appears to have appropriate knowledge of illness. Patient has sufficient insurance coverage and stable financial situation for post transplant needs. No concerns regarding substance abuse, legal issues, or mental health needs. Patient has adequate support system and appropriate discharge plan. Plan: solid waste collection worker to provide supportive services as needed. Patient remains a reasonable candidate for transplant from a psychosocial perspective. Psychiatric Consult Recommended: No Transplant Risk Analyst: Naima Rocha LMSW Abdominal Transplant Risk Analyst [phone] Annual Transplant Caregiver Confirmation Note Caregiver Confirmation Date Primary Name of Primary: Mike Smith Relationship: Spouse - Confirmed during initial assessment - LICENSED INVESTMENT SALES ASSISTANT form received on 12/22/22 Secondary Name of Secondary: Carline White Relationship: Daughter Confirmed no changes in caregivers or their contact information RD: 12/12/2024 Transplant Nutrition Evaluation BMI: Body mass index is 28.4 kg/m . BMI Range: Overweight Pt remains a good candidate for a Kidney Transplant from a Nutrition standpoint. s/p LUR txp 09/2018 Nutrition Recommendations/Pt instructed to: Recommended following lower sodium diet, avoiding processed foods and added salt. Patient is doing majority of cooking and shopping at home with her . Discussed with patient Post-Transplant Diet: It is recommended to follow a Low Sodium, Limited Added Sugar, and Food Safety diet, as well as avoiding foods/beverages that may interfere with Transplant meds. Reviewed post- transplant diet during annual kidney nutrition check in. Exercise: Avid bike riding when weather is good 70 degrees or above. Pulled a back muscle and is having knee pain recently preventing movement. Normally tries to move around house Waist Circumference (Kidney) (2022) 39.5 Weight Assessment: Pt reported some recent weight loss d/t poor appetite, pt reports 3-4 kg weight loss in the past month. States she is normally around 78 kg but was 73.9 kg this morning (12/12). Wt History: Ht: 63.5 Wt: 162 lb 14.7 oz BMI: 28.4 Pt has lost about 15 lbs. Pt is not as hungry. Explained to pt that PD deliver about 500 Dextrose kcal and pt may not be able feel as hungry. Monitoring: Weight Diet Compliance Re-Evaluation: Annual f/u if listed or per Transplant Team Referral Pauline Montes, JACK/LD Items Still Pending: A-V fistula 10/13/2022 Preoperative examination 08/30/2022 Assessment & Plan (08/30/2022 4:53 PM HIGH SCHOOL INDUSTRIAL ARTS TEACHER): Principal issue for the consultation today. 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 Hyperuricemia [...] kidney disease, unspecified CKD stage, unspecified whether gastroenterology nurse insulin use 10/20/2021 Hyperparathyroidism 10/20/2021 Stage 3b [...] nifedipine Assessment & Plan (08/30/2022 4:54 PM HIGH SCHOOL INDUSTRIAL ARTS TEACHER): BP appropriate in clinic today - continue [...] Encounters Date Type Department Care Team Description 02/11/2025 10:14 AM CDT - 02/11/2025 11:59 PM CDT Hospital Encounter [facility] Care [address] [place] [phone] Jr Obregon MD Discharge Disposition: Home or Self Care 02/11/2025 Telephone [facility] TRANSPLANT [address] [place] [phone] Lilian Sky, RN Kidney Transplant Evaluation 02/05/2025 Telephone [facility] TRANSPLANT [address] [place] [phone] Lilian Sky, RN Kidney Transplant Evaluation 01/31/2025 Lab Requisition [facility] MAIN LAB [facility] [place] [address] Quintin Snow MD 01/27/2025 1:00 PM CDT Clinical Support [facility] TXP JEANETTE CSM [address]L [address] [facility] [place] [address] Fred Jo MD Pre-transplant evaluation for kidney transplant 01/27/2025 Travel 01/16/2025 2:16 PM CDT - 01/16/2025 11:59 PM CDT Hospital Encounter [facility] Imaging Services - Radiology [address] [place] [phone] Jr Obregon MD Discharge Disposition: Home or Self Care 01/16/2025 2:16 PM CDT - 01/16/2025 11:59 PM CDT Hospital Encounter [facility] Imaging Services - Radiology [address] [place] [address] Jr Obregon MD Discharge Disposition: Home or Self Care 01/16/2025 2:10 PM CDT - 01/16/2025 2:15 PM CDT Hospital Encounter [facility] Health Imaging Services - Radiology [address] [place] [address] Jr Obregon MD Discharge Disposition: Home or Self Care 01/16/2025 1:15 PM CDT Office Visit [facility] Health Pain Care [address] [place], [place] [address]e [address] [place] [phone] Jr Obregon MD Primary osteoarthritis of both shoulders (Primary Dx); Sacroiliitis; Status post lumbar spinal fusion 01/15/2025 10:41 AM CDT - 01/15/2025 11:59 PM CDT Hospital Encounter [facility] Health Pain Care [address] [place] [phone] Jr Obregon MD Discharge Disposition: Home or Self Care 01/15/2025 Travel 12/31/2024 Telephone [facility] TRANSPLANT [address] [place] [phone] Lilian Sky RN Kidney Transplant Evaluation 12/30/2024 Telephone [facility] TRANSPLANT [address] [place] [phone] Elvia Alaniz CPC Kidney Transplant Evaluation 12/25/2024 2:21 PM CDT - 12/25/2024 11:59 PM CDT Hospital Encounter [facility] Health Pain Care [address] [place] [phone] Jr Obregon MD Discharge Disposition: Home or Self Care 12/25/2024 Orders Only [facility] Health Pain Care [address] [place] [phone] Jr Obregon MD Primary osteoarthritis of both knees 12/25/2024 Orders Only [facility] Health Pain Care [address] [place] [address] Jr Obregon MD Primary osteoarthritis of both knees 12/25/2024 Travel 12/24/2024 11:13 AM CDT - 12/24/2024 11:59 PM CDT Hospital Encounter [facility] DIAGNOSTIC RAD OP [address] [place] [address] Fred Jo MD Discharge Disposition: Home or Self Care 12/24/2024 9:44 AM CDT - 12/24/2024 11:12 AM CDT Hospital Encounter [facility] ECHO [address] [place] [address] Abundio Benjamin MD Discharge Disposition: Home or Self Care 12/24/2024 8:30 AM CDT - 12/24/2024 9:43 AM CDT Hospital Encounter [facility] ECHO [address] [place] [address] Abundio Benjamin MD Discharge Disposition: Home or Self Care 12/24/2024 7:52 AM CDT - 12/24/2024 8:29 AM CDT Hospital Encounter [facility] INFUSION CENTER [address] [place] [phone] Rina Tracy PA-C Discharge Disposition: Home or Self Care 12/24/2024 Travel 12/04/2024 Lab Requisition [facility] MAIN LAB [address] [place] [address] Quintin Snow MD 12/02/2024 12:24 PM CDT - 12/02/2024 11:59 PM CDT Hospital Encounter [facility] Health Imaging Services - Radiology [address] [place] [address] Jr Obregon MD Discharge Disposition: Home or Self Care 12/02/2024 11:45 AM CDT Office Visit [facility] Health Pain Care [address] [facility] [address] [place] [address] Jr Obregon MD Primary osteoarthritis of both knees (Primary Dx) 12/02/2024 Telephone [facility] TRANSPLANT [address] [place] [phone] Lilian Sky, RN Kidney Transplant Evaluation 12/02/2024 Travel from Last 3 Months Immunizations Immunization Administration [...] on file Legal Sex Female 8:35 AM HIGH SCHOOL INDUSTRIAL ARTS TEACHER Gender Identity Not on file Sexual Orientation Not on file Last Filed Vital Signs Vital Sign Reading Time Taken Comments Blood Pressure 156/106 01/27/2025 1:10 PM CDT Pulse 85 01/27/2025 1:10 PM CDT Temperature 36.7 C (98 F) 01/15/2025 10:54 AM CDT Respiratory Rate 20 01/27/2025 1:10 PM CDT Oxygen Saturation 100% 01/27/2025 1:10 PM CDT Inhaled Oxygen Concentration - - Weight 78.2 kg (172 lb 6.4 oz) 01/27/2025 1:10 P M CDT Height 162.6 cm (5' 4) 01/27/2025 1:10 PM CDT Body Mass Index 29.59 01/27/2025 1:10 PM CDT Plan of Treatment Health Maintenance Due Date Last Done Comments COLOGUARD (AGES 45-75) - COLON CA SCREENING 1960 CT COLONOGRAPHY - COLON CA SCREENING 1960 FIT - COLON CA SCREENING 1960 FLEX SIG - COLON CA SCREENING 1960 HEPATITIS B VACCINE (1 of 3 [...] 12/24/2024 , 12/21/2023, 11/07/2022, Additional history exists HIB VACCINE Aged [...] Author Blood Pressure < 140/90 Blood Pressure 156/106(01/27 1:10 PM CDT) No Lilian Sky RN Medication Management General On track( 12:38 PM CDT) No Tabitha Vizcarra RN Note: Expected end date: ONGOING Interventions: Take all medications as prescribed Let your doctor know right away about any changes in your medications Make sure to request a refill of your medication at least one week prior to your last dose Medication Management General No Tabitha Vizcarra RN Note: Expected end date: ongoing Interventions: Take all medications as prescribed Let your doctor know right away about any changes in your medications Make sure to request a refill of your medication at least one week prior to your last dose Medical Devices Implanted Type Area Subway Guard Device Identifier Shelf Expiration Date Model / Serial / Lot Kit Jeffry Drflw Embosafe Chrnc Dlys Implanted:Qty: 1 on 06/08/2022 at [facility] [employer] 10/25/2024 [id number] Graft Vasc 4-7mm 45cm Hep Propaten Ptfe - [id number] Implanted:Qty: 1 on 12/07/2022 by Abundio Benjamin MD at [facility] Right: Arm [employer] [id number] 06/15/2026 [id number] / [id number] / Stent Eprsth Sprfc Fem Art Ilium 5cm 8mm - [id number] Implanted:Qty: 1 on 08/04/2023 by Flakito Yu MD at [facility] Right: Arm [employer] 05/09/2026 [id number] / [id number] / Kit Durathane Drflw Embosafe Chrnc Dlys Implanted:Qty: 1 on 08/24/2023 at [facility] Left: Chest [employer] 01/22/2026 [id number] / [id number] Description:LIJ by Dr. Mike Kit Durathane Drflw Embosafe Chrnc Dlys Implanted:Qty: 1 on 09/13/2023 at [facility] Left: Chest [employer] 09/24/2025 [id number] Description:implaned by Dr. Mike Perioneal Dialysis Catheter Implanted:Qty: 1 on 09/27/2023 by Fred Jo MD at [facility] Left: Abdomen 06/22/2027 [id number] / / [id number] Description:Peritoneal Dialy sis Catheter, 57cm, Curl Cath, 2 Cuff Procedures Procedure Name Priority Date/Time Associated Diagnosis Comments PAIN MANAGEMENT PROCEDURE TIME Routine 02/11/2025 10:51 AM CDT Arthritis pain, shoulder HOLD HLA SPECIMEN Routine 01/28/2025 11: 06 AM CDT XR SACRUM AND COCCYX Routine 01/16/2025 2:44 [...] kidney disease on chronic dialysis, unspecified whether detention insulin use ([facility]) Hypertension, unspecified type Takotsubo cardiomyopathy 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) Recurrent UTI IPMN (intraductal papillary mucinous neoplasm) Tachycardia ECHO STRESS DOBUTAMINE W CONTRAST Routine 12/24/2024 11:02 AM CDT Pre-kidney transplant, listed ESRD (end stage renal disease) (HCC) Dependence on peritoneal dialysis Type 2 diabetes mellitus with chronic kidney disease on chronic dialysis, unspecified whether gastroenterology nurse insulin use ([facility]) Hypertension, unspecified type Takotsubo cardiomyopathy 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) Recurrent UTI IPMN (intraductal papillary mucinous neoplasm) Tachycardia ECHO COMPLETE Routine 12/24/2024 9:25 AM CDT Pre-kidney transplant, listed ESRD (end stage renal disease) (HCC) Type 2 diabetes mellitus with chronic kidney disease on chronic dialysis, unspecified whether gastroenterology nurse insulin use ([facility]) Hypertension, unspecified type Takotsubo cardiomyopathy URINALYSIS REFLEX MICROSCOPIC REFLEX CULTURE Routine 12/24/2024 8:25 AM CDT Pre-kidney transplant, listed ESRD (end stage renal disease) (HCC) Dependence on peritoneal dialysis Type 2 diabetes mellitus with chronic kidney disease on chronic dialysis, unspecified whether gastroenterology nurse insulin use (HCC) Hypertension, unspecified type Takotsubo cardiomyopathy 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) Recurrent UTI IPMN (intraductal papillary mucinous neoplasm) Tachycardia PROTEIN CREATININE RATIO URINE RANDOM PNL Routine 12/24/2024 8:25 AM CDT Pre-kidney transplant, listed ESRD (end stage renal disease) (HCC) Dependence on peritoneal dialysis Type 2 diabetes mellitus with chronic kidney disease on chronic dialysis, unspecified whether gastroenterology nurse insulin use (HCC) Hypertension, unspecified type Takotsubo cardiomyopathy 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) Recurrent UTI IPMN (intraductal papillary mucinous neoplasm) Tachycardia QUANTIFERON-TB GOLD PLUS 4-TUBE Routine 12/24/2024 8:25 AM CDT Pre-kidney transplant, listed ESRD (end stage renal disease) (HCC) Dependence on peritoneal dialysis Type 2 diabetes mellitus with chronic kidney disease on chronic dialysis, unspecified whether gastroenterology nurse insulin use (HCC) Hypertension, unspecified type Takotsubo [...] kidney disease on chronic dialysis, unspecified whether gastroenterology nurse insulin use (HCC) Hypertension, unspecified type Takotsubo cardiomyopathy 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) Recurrent UTI IPMN (intraductal papillary mucinous neoplasm) Tachycardia TOXOPLASMA GONDII ANTIBODY IGG Routine 12/24/2024 8:24 AM CDT Pre-kidney transplant, listed ESRD (end stage renal disease) (HCC) Dependence on peritoneal dialysis Type 2 diabetes mellitus with chronic kidney disease on chronic dialysis, unspecified whether detention insulin use (HCC) Hypertension, unspecified type Takotsubo cardiomyopathy 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) Recurrent UTI IPMN (intraductal papillary mucinous neoplasm) Tachycardia HIV-1 HIV-2 ANTIBODY + HIV P24 AG PANEL Routine 12/24/2024 8:24 AM CDT Pre-kidney transplant, listed ESRD (end stage renal disease) (HCC) Dependence on peritoneal dialysis Type 2 diabetes mellitus with chronic kidney disease on chronic dialysis, unspecified whether gastroenterology nurse insulin use (HCC) Hypertension, unspecified type Takotsubo cardiomyopathy 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) Recurrent UTI IPMN (intraductal papillary mucinous neoplasm) Tachycardia OPIATES BLOOD Routine 12/24/2024 8:24 AM CDT Pre-kidney transplant, listed ESRD (end stage renal disease) (HCC) Dependence on peritoneal dialysis Type 2 diabetes mellitus with chronic kidney disease on chronic dialysis, unspecified whether detention insulin use (HCC) Hypertension, unspecified type Takotsubo cardiomyopathy 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) Recurrent UTI IPMN (intraductal papillary mucinous neoplasm) Tachycardia COCAINE METABOLITE BLOOD QUANT Routine 12/24/2024 8:24 AM CDT Pre-kidney transplant, listed ESRD (end stage renal disease) (HCC) Dependence on peritoneal dialysis Type 2 diabetes mellitus with chronic kidney disease on chronic dialysis, unspecified whether detention insulin use (HCC) Hypertension, unspecified type Takotsubo cardiomyopathy 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) Recurrent UTI IPMN (intraductal papillary mucinous neoplasm) Tachycardia AMPHETAMINE BLOOD CONFIRMATION Routine 12/24/2024 8:24 AM CDT Pre-kidney transplant, listed ESRD (end stage renal disease) (HCC) Dependence on peritoneal dialysis Type 2 diabetes mellitus with chronic kidney disease on chronic dialysis, unspecified whether gastroenterology nurse insulin use (HCC) Hypertension, unspecified type Takotsubo cardiomyopathy 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) Recurrent UTI IPMN (intraductal papillary mucinous neoplasm) Tachycardia NICOTINE + METABOLITES BLOOD Routine 12/24/2024 8:24 AM CDT Pre-kidney transplant, listed ESRD (end stage renal disease) (HCC) Dependence on peritoneal dialysis Type 2 diabetes mellitus with chronic kidney disease on chronic dialysis, unspecified whether gastroenterology nurse insulin use (HCC) Hypertension, unspecified type Takotsubo cardiomyopathy 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) Recurrent UTI IPMN (intraductal papillary mucinous neoplasm) Tachycardia SYPHILIS ANTIBODY CASCADING REFLEX Routine 12/24/2024 8:24 AM CDT Pre-kidney transplant, listed ESRD (end stage renal disease) (HCC) Dependence on peritoneal dialysis Type 2 diabetes mellitus with chronic kidney disease on chronic dialysis, unspecified whether gastroenterology nurse insulin use (HCC) Hypertension, unspecified type Takotsubo cardiomyopathy 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) Recurrent UTI IPMN (intraductal papillary mucinous neoplasm) Tachycardia HEMOGLOBIN A1C Routine 12/24/2024 8:24 AM CDT Pre-kidney transplant, listed ESRD (end stage renal disease) (HCC) Dependence on peritoneal dialysis Type 2 diabetes mellitus with chronic kidney disease on chronic dialysis, unspecified whether detention insulin use (HCC) Hypertension, unspecified type Takotsubo cardiomyopathy 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) Recurrent UTI IPMN (intraductal papillary mucinous neoplasm) Tachycardia HEPATITIS A ANTIBODY Routine 12/24/2024 8:24 AM CDT Pre-kidney transplant, listed ESRD (end stage renal disease) (HCC) Dependence on peritoneal dialysis Type 2 diabetes mellitus with chronic kidney disease on chronic dialysis, unspecified whether detention insulin use (HCC) Hypertension, unspecified type Takotsubo cardiomyopathy 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) Recurrent UTI IPMN (intraductal papillary mucinous neoplasm) Tachycardia HEPATITIS C ANTIBODY Routine 12/24/2024 8:24 AM CDT Pre-kidney transplant, listed ESRD (end stage renal disease) (HCC) Dependence on peritoneal dialysis Type 2 diabetes mellitus with chronic kidney disease on chronic dialysis, unspecified whether detention insulin use (HCC) Hypertension, unspecified type Takotsubo cardiomyopathy 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) Recurrent UTI IPMN (intraductal papillary mucinous neoplasm) Tachycardia HEPATITIS B CORE ANTIBODY TOTAL Routine 12/24/2024 8:24 AM CDT Pre-kidney transplant, listed ESRD (end stage renal disease) (HCC) Dependence on peritoneal dialysis Type 2 diabetes mellitus with chronic kidney disease on chronic dialysis, unspecified whether detention insulin use (HCC) Hypertension, unspecified type Takotsubo cardiomyopathy 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) Recurrent UTI IPMN (intraductal papillary mucinous neoplasm) Tachycardia HEPATITIS B SURFACE ANTIGEN W RFLX CONFIRMATION Routine 12/24/2024 8:24 AM CDT Pre-kidney transplant, listed ESRD (end stage renal disease) (HCC) Dependence on peritoneal dialysis Type 2 diabetes mellitus with chronic kidney disease on chronic dialysis, unspecified whether detention insulin use (HCC) Hypertension, unspecified type Takotsubo cardiomyopathy 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) Recurrent UTI IPMN (intraductal papillary mucinous neoplasm) Tachycardia LIPID PROFILE Routine 12/24/2024 8:24 AM CDT Pre-kidney transplant, listed ESRD (end stage renal disease) (HCC) Dependence on peritoneal dialysis Type 2 diabetes mellitus with chronic kidney disease on chronic dialysis, unspecified whether gastroenterology nurse insulin use (HCC) Hypertension, unspecified type Takotsubo cardiomyopathy 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) Recurrent UTI IPMN (intraductal papillary mucinous neoplasm) Tachycardia PTH INTACT W/O CALCIUM Routine 12/24/2024 8:24 AM CDT Pre-kidney transplant, listed ESRD (end stage renal disease) (HCC) Dependence on peritoneal dialysis Type 2 diabetes mellitus with chronic kidney disease on chronic dialysis, unspecified whether gastroenterology nurse insulin use (HCC) Hypertension, unspecified type Takotsubo cardiomyopathy 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) Recurrent UTI IPMN (intraductal papillary mucinous neoplasm) Tachycardia PHOSPHORUS BLOOD Routine 12/24/2024 8:24 AM CDT Pre-kidney transplant, listed ESRD (end stage renal disease) (HCC) Dependence on peritoneal dialysis Type 2 diabetes mellitus with chronic kidney disease on chronic dialysis, unspecified whether gastroenterology nurse insulin use (HCC) Hypertension, unspecified type Takotsubo cardiomyopathy 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) Recurrent UTI IPMN (intraductal papillary mucinous neoplasm) Tachycardia VITAMIN D 25-HYDROXY Routine 12/24/2024 8:24 AM CDT Pre-kidney transplant, listed ESRD (end stage renal disease) (HCC) Dependence on peritoneal dialysis Type 2 diabetes mellitus with chronic kidney disease on chronic dialysis, unspecified whether detention insulin use (HCC) Hypertension, unspecified type Takotsubo cardiomyopathy 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) Recurrent UTI IPMN (intraductal papillary mucinous neoplasm) Tachycardia URIC ACID BLOOD Routine 12/24/2024 8:24 AM CDT Pre-kidney transplant, listed ESRD (end stage renal disease) (HCC) Dependence on peritoneal dialysis Type 2 diabetes mellitus with chronic kidney disease on chronic dialysis, unspecified whether detention insulin use (HCC) Hypertension, unspecified type Takotsubo cardiomyopathy 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) Recurrent UTI IPMN (intraductal papillary mucinous neoplasm) Tachycardia COMPREHENSIVE METABOLIC PANEL Routine 12/24/2024 8:24 AM CDT Pre-kidney transplant, listed ESRD (end stage renal disease) (HCC) Dependence on peritoneal dialysis Type 2 diabetes mellitus with chronic kidney disease on chronic dialysis, unspecified whether gastroenterology nurse insulin use (HCC) Hypertension, unspecified type Takotsubo cardiomyopathy 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) Recurrent UTI IPMN (intraductal papillary mucinous neoplasm) Tachycardia CBC W AUTO DIFFERENTIAL Routine 12/24/2024 8:24 AM CDT Pre-kidney transplant, listed ESRD (end stage renal disease) (HCC) Dependence on peritoneal dialysis Type 2 diabetes mellitus with chronic kidney disease on chronic dialysis, unspecified whether gastroenterology nurse insulin use (HCC) Hypertension, unspecified type Takotsubo cardiomyopathy 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) Recurrent UTI IPMN (intraductal papillary mucinous neoplasm) Tachycardia XR KNEE BILAT STANDING 1VW Routine 12/02/2024 12:44 PM CDT Primary osteoarthritis of both knees HOLD HLA SPECIMEN Routine 11/29/2024 10: 43 AM [employer] DEXA BONE DENSITY AXIAL SKELETON Routine 02/02/2022 9:11 AM CDT Hypocalcemia Age-related osteoporosis with current pathological fracture, initial encounter Screening for osteoporosis Localized osteoporosis ([place]) COLONOSCOPY Routine 11/17/2021 MAMMOGRAM Routine 11/09/2021 from Last 3 Months or Most Recently Relevant to Health Maintenance Results * Pain Management Procedure Time (02/11/2025 10:51 AM CDT) Only the most recent of3 resultswithin the time period is included. Anatomical Region Laterality Modality Radio Fluoroscop y Narrative 02/11/2025 11:16 AM CDT Jr Obregon MD 02/11/2025 11:17 AM Fluoroscopically Guided bilateralShoulder Joint Injection Dx: M19.019 - Osteoarthritis Shoulder Consent: The patient was identified in the holding area and the operative permit was explained and signed. I have discussed with the patient the risks, benefits, side effects and complications of a fluoroscopically guided shoulder joint and subacromial bursa injections. I have answered the patient's questions regarding the procedure and have given the patient the opportunity to refuse the procedure. I also have discussed alternative methods of treatment. The patient stated understanding of the procedure and wished to proceed with shoulder joint and subacromial bursa injections. Monitoring: The patient was taken to the [...] a sterile drape were applied to the anterolateral shoulder area. Procedure: The right then the left shoulder GH and AC joint injections were performed on the side mentioned above. A 27 gauge 1.5 inch was then used to inject 1.5 ml of Lidocaine 1% for subcutaneous anesthesia. Using fluoroscopic guidance, a 22 gauge 3.5 inch needle was carefully guided nto the AC shoulder joint And injected with 2 cc of 7.5 mg dexamethasone and 1 % lidocaine The the needle was further advanced superiorly into the humeral head the GH joint was injected with 2 cc of 7.5 mg dexamethasone and 1 % lidocaine The needle was removed intact. The patient tolerated the procedure well and there were no complications. EBL < 1 ml Recovery: The patient was taken to the recovery area where they remained in stable condition. Postprocedure instructions were given to the patient and a follow up appointment was confirmed. The patient was also discharged with information on how to reach the clinic or production roustabout physician at anytime for questions or complaints. Jr Obregon MD DIAGNOSTIC IMAGING ORDERABLES Fi nal Result * HOLD HLA SPECIMEN (01/28/2025 11:06 AM CDT) Only the most recent of2 resultswithin the time period is included. Hold HLA Specimen 01/31/2025 12:32 PM CDT [facility] ([employer]) Comment:The Hold HLA specime n has been received into the lab and will be held for 5 years at 4 degrees. Blood BLOOD SPECIMEN / Unknown 01/28/2025 11:06 AM CDT 01/31/2025 11:06 AM CDT Quintin Snow MD LAB - BLOOD BANK ORDERABLES F inal Result [facility] [address] [place] [address] * XR Sacrum And Coccyx (01/16/2025 2:44 [...] Bones are diffusely demineralized. Lumbar levoscoliosis status [id number] instrumented fusion with a Burns josemanuel which [...] kidney disease on chronic dialysis, unspecified whether gastroenterology nurse insulin use (HCC) N18.6: Type 2 diabetes mellitus with chronic kidney disease on chronic dialysis, unspecified whether detention insulin use (HCC) Z99.2: Type 2 Additional [...] kidney disease on chronic dialysis, unspecified whether detention insulin use (HCC) N18.6: Type 2 diabetes mellitus with chronic kidney disease on chronic dialysis, unspecified whether detention insulin use (HCC) Z99.2: Type 2 Additional [...] 2:14 AM Fred Jo MD DIAGNOSTIC IMAGING [facility] Final Result * ECHO STRESS DOBUTAMINE W [...] Stress Lab Patient Status: O/P Study Site: [facility] Primary Location: [facility] EStudy Info Technical Quality: Adequate Exam Type: [...] Attending Physician: Abundio Benjamin Nurse: Tawnya Moise Farmer [employer] Grazier: Cira Encarnacion [facility] Summary * No abnormal ST/T wave changes [...] Stress Lab Patient Status: O/P Study Site: [facility] Primary Location: [facility] Info Technical Quality: Adequate Exam Type: ECHO [...] Attending Physician: Abundio Benjamin Nurse: Tawnya Moise Farmer [employer] Grazier: Cira Encarnacion [facility] Summary * No abnormal ST/T wave changes [...] achieved. The patient's peak stress blood pressure [id number]/[address]/T wave changes with [...] mg Report Signatures Echo Finalized by Goran Conrejo on 12/24/2024 03:14 PM Stress ECG Finalized by Goran Cornejo on 12/24/2024 03:14 PM us Fred Jo MD ECHO CUPID Final R esult * ECHO COMPLETE (12/24/2024 9:25 AM CDT) AV area index 1.281 cm /m SSM CV FUJI PACS LA vol index 0.023 l/m SSM CV FUJI PACS Dimensionless Index 0.755 unitless SSM CV FUJI PACS Myocardial strain charge 2 unitless SSM CV FUJI PACS IVSd 2D 0.887 cm SSM CV FUJ I PACS LVIDd 4.152 cm SSM CV FUJ I PACS LVIDs 2.514 cm SSM CV FUJ I PACS LVOT diam 1.988 cm SSM CV FUJ I PACS LVPWd 1.007 cm SSM CV FUJ I PACS LV biplane EF 70.828 % SSM CV FUJI PACS LV A2C EF 78.445 % SSM CV FUJ I PACS LV A4C EF 60.972 % SSM CV FUJ I PACS LV EDV A2C 109.065 ml SSM CV FU JI PACS LV EDV A4C 118.043 ml SSM CV FU JI PACS LV ESV A2C 23.509 ml SSM CV FU JI PACS LV ESV A4C 46.07 ml SSM CV FU JI PACS LVOT pk grad 4.159 mmHg SSM CV FUJI PACS LVOT pk johnny 101.971 cm/s SSM CV F UJI PACS LVOT VTI 19.525 cm SSM CV FUJ I PACS RV-sims basal diam 3.227 cm SSM CV FUJI PACS RVIDd 3.29 cm SSM CV FUJ I PACS RVOT diam Doppler 2.874 cm SS M CV FUJI PACS RVOT pk johnny 60.078 cm/s SSM CV F UJI PACS RVOT VTI 11.478 cm SSM CV FUJ I PACS LA size 3.484 cm SSM CV FUJ I PACS LA vol BP 42.414 ml SSM CV FUJ I PACS RA area 10.161 cm SSM [...] 8:59 AM Patient Status: O/P Study Site: [facility] Primary Location: [facility] Info Technical Quality: Good Exam Type: ECHO COMPLETE Indications Please refer to EHR for Exam Diagnosis Codes - Procedure(s) * A complete 2D, color Doppler, spectral Doppler, and M-Mode transthoracic echocardiogram was performed. Staff Referring Physician: Abundio Benjamin Ordering Provider: Abundio Benjamin Attending Physician: Abundio Benjamin Farmer And Grazier: Daria Cazares Left Ventricle The left ventricle [...] 8:59 AM Patient Status: O/P Study Site: [facility] Primary Location: [facility] EStudy Info Technical Quality: Good Exam Type: ECHO COMPLETE Indications Please refer to EHR for Exam Diagnosis Codes - Procedure(s) * A complete 2D, color Doppler, spectral Doppler, and M-Modetransthoracic echocardiogram was performed. Staff Referring Physician: Abundio Benjamin Ordering Provider: Abundio Benjamin Attending Physician: Abundio Benjamin Farmer And Grazier: Daria Cazares Left Ventricle The left ventricle [...] GOLD PLUS 4-TUBE (12/24/2024 8:25 AM CDT) Pathologist [facility] QuantiFERON Mitogen Minus NIL 9.97 IU/mL 12/26/2024 6:33 PM CDT [facility] ([facility]) QuantiFERON Nil Value 0.03 IU/mL 12/26/2024 6:33 PM CDT [facility] ([facility]) QuantiFERON Plus TB1 Minus NIL 0.00 <=0.34 IU/mL 12/26/2024 6:33 PM CDT [facility] ([facility]) QuantiFERON Plus TB2 Minus NIL 0.00 <=0.34 IU/mL 12/26/2024 6:33 PM CDT [facility] ([facility]) QuantiFERON-TB Gold Plus Negative Negative 12/26/2024 6:33 PM CDT [facility] ([facility]) Comment: INTERPRETIVE INFORMATION:Quantiferon TB Gold Plus Interferon [...] Mycobacterium tuberculosis Infection -- [place], 2010 (http://www.cdc.gov/mmwr/preview/mmwrhtml/st3336s8.htm), for more information concerning test performance in low-prevalence populations and use in occupational screening. Performed By: [email or web address] [address] [place] [address] Ship Unloader: Gerard Davidson MD, PhD CLIA Number: [id number] Blood BLOOD SPECIMEN / Unknown Venipuncture / Unknown 12/24/2024 8:25 AM CDT 12/24/2024 8:38 AM CDT Fred Jo MD LAB - CHEMISTRY ORDERAB LES Final Result [facility] ([facility]) [address] [place] [address] * (ABNORMAL) URINALYSIS REFLEX MICROSCOPIC REFLEX CULTURE (12/24/2024 8:25 AM CDT) Color UA Yellow Yellow, Straw 12/24/2024 8:59 AM CDT [facility] Clarity UA Clear Clear 12/24/2024 8:59 AM CDT [facility] Glucose UA 2+(A) Normal 12/24/2024 8:59 AM CDT [facility] Bilirubin UA Negative Negative 12/24/2024 8:59 AM [facility] Ketone UA Negative Negative 12/24/2024 8:59 AM [facility] Specific [place] UA 1.011 1.005 - 1.030 12/24/2024 8:59 AM [facility] Blood UA Trace(A) Negative 12/24/2024 8:59 AM [facility] pH UA 5.5 5.0 - 9.0 pH 12/24/2024 8:59 AM [facility] Protein UA 1+(A) Negative 12/24/2024 8:59 AM [facility] Urobilinogen UA Normal Normal mg/dL 025 8:59 AM [facility] Nitrite UA Negative Negative 12/24/2024 8:59 AM [facility] Leukocyte UA Negative Negative 12/24/2024 8:59 AM [facility] RBC UA 0-2 0 - 5 # /hpf 12/24/2024 8:59 AM [facility] WBC UA 0-5 0 - 5 # /hpf 12/24/2024 8:59 AM [facility] Bacteria UA Trace(A) None Seen 12/24/2024 8:59 AM [facility] Squamous Epithelial Cells 3-5 0 - 5 /hpf 12/24/2024 8:59 AM [facility] Mucus UA 1+ /LPF 12/24/2024 8:59 AM [facility] Urine URINE SPECIMEN OBTAINED BY CLEAN CATCH PROCEDURE / Unknown Collection / Unknown 12/24/2024 8:25 AM CDT 12/24/2024 8:37 AM [facility] us Fred Jo MD LAB - URINALYSIS ORDERA BLES Final Result [facility] [address] [place] [id number], [facility] [phone] * (ABNORMAL) PROTEIN CREATININE RATIO URINE RANDOM PNL (12/24/2024 8:25 AM CDT) Protein Urine 84 Not Established mg/dL 12/24/2024 9:00 AM [facility] Creatinine Urine 70.58 Not Established mg/dL 12/24/2024 9:00 AM CDT [facility] Protein/Creati nine Ratio Urine 1.19(H) <0.10 12/24/2024 9:00 AM CDT [facility] Urine URINE SPECIMEN OBTAINED BY CLEAN CATCH PROCEDURE / Unknown Collection / Unknown 12/24/2024 8:25 AM CDT 12/24/2024 8:37 AM CDT Fred Jo MD LAB - URINE CHEMISTRY O RDERABLES Final Result Performing Organization Address City/[facility]/ZIP Co de Phone Number [facility] [address] [place] [address], [facility] [phone] * COCAINE METABOLITE QUANT (12/24/2024 8:24 AM CDT) Cocaine and Metabolite Blood <20 ng/mL 12/27/2024 10:30 PM CDT [facility] ([facility]) Comment: INTERPRETIVE INFORMATION: Cocaine Metabolite, Serum or Plasma, Quantitative Methodology: Quantitative Liquid Chromatography-Tandem Mass Spectrometry Positive cutoff: 20 ng/mL For medical purposes only; not valid for forensic use. The concentration value must be greater than or equal to the cutoff to be reported as positive. Interpretive questions should be directed to the laboratory. This test was developed and its performance characteristics determined by [email or web address]. It has not been cleared or approved by the [place] Food and Drug Administration. This test was performed in a CLIA certified laboratory and is intended for clinical purposes. Performed By: [email or web address] [address] [place] [address] Ship Unloader: Gerard Davidson MD, PhD CLIA Number: [id number] Blood BLOOD SPECIMEN / Unknown Venipuncture / Unknown 12/24/2024 8:24 AM CDT 12/24/2024 8:37 AM CDT Fred Jo MD LAB - CHEMISTRY ORDERAB LES Final Result Performing Organization Address City/[facility]/ZIP Co de Phone Number [facility]) [address] [place] [address] * SYPHILIS ANTIBODY CASCADING REFLEX (12/24/2024 8:24 AM CDT) Treponema pallidum Antibody Non-react lakesha Non-react lakesha 12/24/2024 9:31 AM CDT [facility] Comment: No Laboratory evidence of syphilis infection. Note: Circulating antibodies may be low or undetectable in early infection. If recent exposure is suspected, re-draw sample in 2-4 weeks and repeat testing. Blood BLOOD SPECIMEN / Unknown Venipuncture / Unknown 12/24/2024 8:24 AM CDT 12/24/2024 8:37 AM CDT Fred Jo MD LAB - SEROLOGY ORDERABL ES Final Result [facility] [address] [place] [phone], [facility] [phone] * AMPHETAMINE BLOOD CONFIRMATION (12/24/2024 8:24 AM CDT) Amphetamines Confirmation <20 ng/mL 12/29/2024 7:19 AM CDT [facility] ([facility]) Comment: INTERPRETIVE INFORMATION: Amphetamines, Serum or Plasma, [...] developed and its performance characteristics determined by [email or web address]. It has not been cleared or approved by the US Food and Drug Administration. This test was performed in a CLIA certified laboratory and is intended for clinical purposes. Methamphetamine Confirmation <20 ng/mL 12/29/2024 7:19 AM CDT [facility] ([facility]) MDA Confirmation <20 ng/mL 12/30/19 7:19 AM CDT [facility] ([facility]) MDMA Confirm <20 ng/mL 12/29/2024 7:19 AM CDT [facility] ([facility]) MDEA Confirmation <20 ng/mL 025 7:19 AM CDT [facility] ([facility]) Comment: Performed By: [email or web address] [address] [place] [address] Ship Unloader: Gerard Davidson MD, PhD CLIA Number: [id number] Blood BLOOD SPECIMEN / Unknown Venipuncture / Unknown 12/24/2024 8:24 AM CDT 12/24/2024 8:37 AM CDT Fred Jo MD LAB - CHEMISTRY ORDERAB LES Final Result Performing Organization Address City/[facility]/ZIP Co de Phone Number [facility]) [address] [place] [address] * (ABNORMAL) PTH INTACT W/O CALCIUM (12/24/2024 8:24 AM CDT) PTH Intact 858.1(H) 8.0 - 77.0 pg/mL 12/24/2024 9:10 AM CDT [facility] Blood BLOOD SPECIMEN / Unknown Venipuncture / Unknown 12/24/2024 8:24 AM CDT 12/24/2024 8:40 AM CDT Fred Jo MD LAB - CHEMISTRY ORDERAB LES Final Result [address] [address], [facility] [phone] * HIV-1 HIV-2 ANTIBODY + HIV P24 AG PANEL (12/24/2024 8:24 AM CDT) HIV Antigen/Antibod y 1 & 2 Non-reacti ve Non-react lakesha 12/24/2024 9:31 AM CDT [facility] Comment:No Laboratory eviden ce of HIV infection. Blood BLOOD SPECIMEN / Unknown Venipuncture / Unknown 12/24/2024 8:24 AM CDT 12/24/2024 8:37 AM CDT Fred Jo MD LAB - CHEMISTRY ORDERAB LES Final Result Performing Organization Address [facility] Co de Phone Number [address] [address], [facility] [phone] * (ABNORMAL) HEPATITIS B SURFACE ANTIBODY QUANT (12/24/2024 8:24 AM CDT) Pathologist [facility] Hepatitis B Virus Surface Antibody Reactive( A) Non-react lakesha 12/24/2024 9:29 AM CDT [facility] Comment: > 12 mIU/mL Hepatitis B surface Antibody (HBsAb). Reactive for HBsAb - individual is considered immune to Hepatitis B Virus infection. Hepatitis B Surface Antibody Quantitative 97.8(H) <8.0 mIU/mL 12/24/2024 9:29 AM CDT [facility] Comment: Hepatitis B Surface Antibody Numeric Result Interpretation: Nonreactive: <8.0 mIU/mL Indeterminate: 8.0 - 12.0 mIU/mL Reactive: >12.0 mIU/mL Blood BLOOD SPECIMEN / Unknown Venipuncture / Unknown 12/24/2024 8:24 AM CDT 12/24/2024 8:37 AM CDT Narrative [facility] - 12/24/2024 9:29 AM CDT This assay should not be used for blood, plasma, or tissue donor screening. This assay is not recommended for neonates born to HBV-infected or suspected HBV-infected mothers. Fred Jo MD LAB - SEROLOGY ORDERABL ES Final Result Performing Organization Address City/[facility]/ZIP Co de Phone Number [facility] [address] [place] [address], [facility] [phone] * OPIATES BLOOD (12/24/2024 8:24 AM CDT) Pathologist [facility] Opiates Screen Negative 12/27/2024 7:09 PM CDT [facility] ([facility]) Comment:REFERENCE RANGE: thr shold: 10 ng/mL Oxycodone Screen Negative 12/28/19 7:09 PM CDT [facility] ([facility]) Comment:REFERENCE RANGE: thr shold: 10 ng/mL Specimen Type Comment 12/27/2024 7:09 PM CDT [facility]) Comment: WHOLE BLOOD This specimen was screened by immunoassay at the thresholds listed above. Presumptive positive results have not been confirmed by an alternate method; results are intended for clinical medical purposes. Please contact the laboratory if confirmatory testing is desired. This test was developed and its performance characteristics determined by [facility]. It has not been cleared or approved by the Food and Drug Administration. Blood BLOOD SPECIMEN / Unknown Venipuncture / Unknown 12/24/2024 8:24 AM CDT 12/24/2024 9:36 AM CDT Narrative [facility] ([facility]) - 12/27/2024 7:09 PM CDT Performed at: [facility] [address] [id number] Clinical Pharmacy Coordinator: Patricia Ozuna [facility], Phone: [phone] Fred Jo MD LAB - CHEMISTRY ORDERAB LES Final Result Performing Organization Address City/[facility]/ZIP Co de Phone Number [facility] ([facility]) [address] [place] [address] * URIC ACID BLOOD (12/24/2024 8:24 AM CDT) [facility] Uric Acid 6.0 2.6 - 6.0 mg/dL 12/24/2024 9:07 AM CDT [facility] Blood BLOOD SPECIMEN / Unknown Venipuncture / Unknown 12/24/2024 8:24 AM CDT 12/24/2024 8:41 AM CDT Fred Jo MD LAB - CHEMISTRY ORDERAB LES Final Result [address] [address], [facility] [phone] * STRONGYLOIDES ANTIBODY IGG (12/24/2024 8:24 AM CDT) Pathologist [facility] Strongyloides Antibody IgG 0.1 <=0.9 IV 12/26/2024 11:22 PM CDT [facility] ([facility]) Comment: INTERPRETIVE INFORMATION: Strongyloides Ab, IgG by [...] also result in false-positive results. Performed By: [facility] [employer] [address] [place] [address] Ship Unloader: Gerard Davidson MD, PhD CLIA Number: [id number] Blood BLOOD SPECIMEN / Unknown Venipuncture / Unknown 12/24/2024 8:24 AM CDT 12/24/2024 8:37 AM CDT Fred Jo MD LAB - SEROLOGY ORDERABL ES Final Result [facility]) [address] [place] [address] * TOXOPLASMA GONDII ANTIBODY IGG (12/24/2024 8:24 AM CDT) Pathologist [facility] Toxoplasma Antibody IgG <3.0 <=8.8 IU/mL 12/26/2024 3:01 AM CDT [facility] ([facility]) Comment: INTERPRETIVE INFORMATION: Toxoplasma Ab, IgG 7.1 [...] the amount of antibody present. Performed By: [email or web address] [address] [place] [address] Ship Unloader: Gerard Davidson MD, PhD CLIA Number: [id number] Blood BLOOD SPECIMEN / Unknown Venipuncture / Unknown 12/24/2024 8:24 AM CDT 12/24/2024 8:37 AM CDT Fred Jo MD LAB - CHEMISTRY ORDERAB LES Final Result Performing Organization Address [facility]/ZIP Co de Phone Number [facility]) [address] [place] [address] * (ABNORMAL) CANCER ANTIGEN (CA) 19-9 (12/24/2024 8:24 AM CDT) CA 19-9 50(H) <=35 U/mL 12/26/2024 1:30 AM CDT [facility] ([facility]) Comment: INTERPRETIVE INFORMATION: Cancer Antigen-GI (CA 19-9) [...] or absence of malignant disease. Performed By: [email or web address] [address] [place] [address] Ship Unloader: Gerard Davidson MD, PhD CLIA Number: [id number] Blood BLOOD SPECIMEN / Unknown Venipuncture / Unknown 12/24/2024 8:24 AM CDT 12/24/2024 8:37 AM CDT Fred Jo MD LAB - CHEMISTRY ORDERAB LES Final Result Performing Organization Address [facility]/ZIP Co de Phone Number [employer] [facility]) [address] [place] [address] * (ABNORMAL) HEMOGLOBIN A1C (12/24/2024 8:24 AM CDT) Hemoglobin A1c 6.9(H) <=5.6 % 12/24/2024 1:04 PM CDT [facility] Estimated Average Glucose 151 mg/dL 12/24/2024 1:04 PM CDT [facility] Comment: HbA1c Interpretation: Normal : < 5.7% Pre-diabetes: 5.7-6.4% Diabetes: Equal to or greater than 6.5% Test results diagnostic of diabetes should be repeated for confirmation. Treatment target values recommended by ADA and other clinical organizations should be used to evaluate metabolic control in patients. Reference: [place] [employer], Standards of Care in Diabetes -2020 In patients 70 years and older consider HbA1c target range of 7.0-7.5% (Reference: Maikel Mane et al. SAVITA. 2012) The Sebia assay for the measurement of HbA1c is a National Glycohemoglobin Standardization Program (NGSP) certified method. Blood BLOOD SPECIMEN / Unknown Venipuncture / Unknown 12/24/2024 8:24 AM CDT 12/24/2024 8:40 AM CDT us Fred Jo MD LAB - CHEMISTRY ORDERAB LES Final Result Performing Organization Address City/State/[facility] Co de Phone Number [facility] [address] [place] [address], [facility] [phone] * (ABNORMAL) VITAMIN D 25-HYDROXY (12/24/2024 8:24 AM CDT) Vitamin D, 25 Hydroxy 24.1(L) 30.0 - 80.0 ng/mL 12/24/2024 9:24 AM CDT [facility] Comment: The recommendations for 25-Hydroxy Vitamin D [...] LAB - CHEMISTRY ORDERAB LES Final Result [facility] [address] [address], [facility] [phone] * NICOTINE + METABOLITES BLOOD (12/24/2024 8:24 AM CDT) Nicotine <5 ng/mL 12/28/2024 3:02 PM CDT [employer] ([facility]) Comment: INTERPRETIVE INFORMATION: Nicotine and Metabolites, Serum [...] developed and its performance characteristics determined by [email or web address]. It has not been cleared or approved by the US Food and Drug Administration. This test was performed in a CLIA certified laboratory and is intended for clinical purposes. Performed By: [email or web address] [address] [place] [address] Ship Unloader: Gerard Davidson MD, PhD CLIA Number: [id number] Cotinine <5 ng/mL 12/28/2024 3:02 PM CDT [employer] ([facility]) Blood BLOOD SPECIMEN / Unknown Venipuncture / Unknown 12/24/2024 8:24 AM CDT 12/24/2024 8:37 AM CDT us Fred Jo MD LAB - CHEMISTRY ORDERAB LES Final Result [facility] ([facility]) [address] [place] [address], [facility] * (ABNORMAL) CBC W AUTO DIFFERENTIAL (12/24/2024 8:24 AM CDT) WBC 9.4 4.0 - 10.7 x10E9/L 12/24/2024 8:53 AM [facility] RBC Count 3.91 3.90 - 5.20 x10E12/L 12/24/2024 8:53 AM [facility] Hemoglobin 10.3(L) 11.9 - 15.8 g/dL 12/24/2024 8:53 AM [facility] Hematocrit 32.5(L) 34.8 - 46.1 % 12/24/2024 8:53 AM [facility] MCV 83.1 80.0 - 98.0 fL 12/24/2024 8:53 AM [facility] MCH 26.3(L) 26.7 - 33.6 pg 12/24/2024 8:53 AM [facility] MCHC 31.7 31.7 - 36.3 g/dL 12/24/2024 8:53 AM [facility] RDW-CV 18.9(H) 11.3 - 14.8 % 12/24/2024 8:53 AM [facility] Platelet Count 239 150 - 420 x10E9/L 12/24/2024 8:53 AM [facility] MPV 10.7 7.8 - 11.4 fL 12/24/2024 8:53 AM [facility] Preliminary Absolute Neutrophil 7.02 1.60 - 7.50 x10E9/L 12/24/2024 8:53 AM [facility] Neutrophil % 74.8(H) 41.0 - 74.0 % 12/24/2024 8:53 AM [facility] Lymphocyte % 13.5(L) 17.0 - 47.0 % 12/24/2024 8:53 AM [facility] Monocyte % 8.7 3.0 - 11.0 % 12/24/2024 8:53 AM [facility] Eosinophil % 2.2 0.0 - 7.0 % 12/24/2024 8:53 AM [facility] Basophil % 0.5 0.0 - 1.6 % 12/24/2024 8:53 AM [facility] Immature Granulocytes % 0.3 0.0 - 1.0 % 12/24/2024 8:53 AM [facility] Neutrophil Absolute 7.02 1.60 - 7.50 x10E9/L 12/24/2024 8:53 AM [facility] Lymphocyte Absolute 1.27 1.00 - 4.40 x10E9/L 12/24/2024 8:53 AM [facility] Monocyte Absolute 0.82 0.15 - 1.00 x10E9/L 12/24/2024 8:53 AM [facility] Eosinophil Absolute 0.21 0.00 - 0.60 x10E9/L 12/24/2024 8:53 AM [facility] Basophil Absolute 0.05 0.00 - 0.13 x10E9/L 12/24/2024 8:53 AM [facility] Blood BLOOD SPECIMEN / Unknown Venipuncture / Unknown 12/24/2024 8:24 AM CDT 12/24/2024 8:40 AM CDT us Fred Jo MD LAB - HEMATOLOGY ORDERA BLES Final Result [facility] [address] [place] [address], [facility] [phone] * (ABNORMAL) COMPREHENSIVE METABOLIC PANEL (12/24/2024 8:24 AM CDT) BUN 46(H) 7 - 26 mg/dL 12/24/2024 9:07 AM [facility] Creatinine 8.50(H) 0.56 - 0.96 mg/dL 12/24/2024 9:07 AM [facility] Sodium 139 136 - 145 mmol/L 12/24/2024 9:07 AM [facility] Potassium 3.4(L) 3.5 - 4.5 mmol/L 12/24/2024 9:07 AM [facility] Chloride 101 98 - 107 mmol/L 12/24/2024 9:07 AM [facility] CO2 20(L) 22 - 29 mmol/L 12/24/2024 9:07 AM [facility] Glucose 158(H) 70 - 99 mg/dL 12/24/2024 9:07 AM [facility] Calcium 8.4 8.4 - 10.2 mg/dL 12/24/2024 9:07 AM [facility] Protein Total 6.0 6.0 - 8.3 g/dL 12/24/2024 9:07 AM [facility] Albumin 2.5(L) 3.4 - 5.0 g/dL 12/24/2024 9:07 AM [facility] Bilirubin Total 0.3 0.2 - 1.2 mg/dL 12/24/2024 9:07 AM [facility] Alkaline Phosphatase 90 40 - 150 U/L 12/24/2024 9:07 AM [facility] ALT 9 5 - 55 U/L 12/24/2024 9:07 AM [facility] AST 12 5 - 34 U/L 12/24/2024 9:07 AM [facility] Anion Gap 18(H) 6 - 16 12/24/2024 9:07 AM [facility] BUN/Creatinine Ratio 5(L) 7 - 23 12/24/2024 9:07 AM [facility] Osmolality Calculated 303(H) 275 - 295 mOsm/kg 12/24/2024 9:07 AM [facility] Albumin/Globulin Ratio 0.7(L) 1.1 - 2.3 12/24/2024 9:07 AM [facility] eGFR by CKD-EPI 5(L) >=90 mL/min/1.7 3 m2 12/24/2024 9:07 AM [facility] Blood BLOOD SPECIMEN / Unknown Venipuncture / Unknown 12/24/2024 8:24 AM CDT 12/24/2024 8:41 AM CDT Fred Jo MD LAB - CHEMISTRY ORDERAB LES Final Result Performing Organization Address City/[facility]/ZIP Co de Phone Number [address] [address], [place] [phone] * (ABNORMAL) PHOSPHORUS BLOOD (12/24/2024 8:24 AM CDT) Phosphorus 10.6(H) 2.9 - 5.1 mg/dL 12/24/2024 9:07 AM CDT [facility] Blood BLOOD SPECIMEN / Unknown Venipuncture / Unknown 12/24/2024 8:24 AM CDT 12/24/2024 8:41 AM CDT Fred Jo MD LAB - CHEMISTRY ORDERAB LES Final Result Performing Organization Address [facility]/ZIP Co de Phone Number [address] [address], [place] [phone] * HEPATITIS B CORE ANTIBODY (12/24/2024 8:24 AM CDT) HBc Antibody Total Non-reacti ve Non-reacti ve 12/24/2024 9:31 AM CDT [facility] Blood BLOOD SPECIMEN / Unknown Venipuncture / Unknown 12/24/2024 8:24 AM CDT 12/24/2024 8:37 AM CDT Fred Jo MD LAB - CHEMISTRY ORDERAB LES Final Result Performing Organization Address City/[facility]/ZIP Co de Phone Number [address] [address], [place] [phone] * HEPATITIS B SURFACE ANTIGEN W RFLX CONFIRMATION (12/24/2024 8:24 AM CDT) Hepatitis B Virus Surface Antigen Non-reacti ve Non-reacti ve 12/24/2024 9:31 AM CDT [facility] Blood BLOOD SPECIMEN / Unknown Venipuncture / Unknown 12/24/2024 8:24 AM CDT 12/24/2024 8:37 AM CDT Fred Jo MD LAB - CHEMISTRY ORDERAB LES Final Result Performing Organization Address City/[facility]/ZIP Co de Phone Number [address] [address], [facility] [phone] * HEPATITIS C ANTIBODY (12/24/2024 8:24 AM CDT) Hepatitis C Antibody Non-react lakesha Non-reac tive 12/24/2024 9:31 AM CDT [facility] Comment:Hepatitis C Antibody screen indicates no [...] ORDERAB LES Final Result Performing Organization Address City/[facility] Co de Phone Number [address] [address], [facility] [phone] * HEPATITIS A ANTIBODY (12/24/2024 8:24 AM CDT) Hepatitis A Virus Antibody Total Negative Negative 12/26/2024 10:04 PM CDT [facility] ([facility]) Comment: Performed By: [email or web address] [address] [place] [address] Ship Unloader: Gerard Davidson MD, PhD CLIA Number: [id number] Blood BLOOD SPECIMEN / Unknown Venipuncture / Unknown 12/24/2024 8:24 AM CDT 12/24/2024 8:37 AM CDT Fred Jo MD LAB - CHEMISTRY ORDERAB LES Final Result [facility] ([facility]) [address] [place] [address] * LIPID PROFILE (12/24/2024 8:24 AM CDT) Cholesterol Total 108 <200 mg/dL 12/24/2024 9:07 AM CDT [facility] HDL 51 >40 mg/dL 12/24/2024 9:07 AM CDT [facility] Comment: ATP III Classification of HDL Cholesterol: <40 mg/dL: Considered a major risk factor. >60 mg/dL: Considered a negative risk factor. LDL Calculated 44 <100 mg/dL 12/24/2024 9:07 AM T [facility] Comment: ATP III Classification of LDL Cholesterol: <100 mg/dL: Optimal 100 - 129 mg/dL: Near Optimal/Above Optimal 130 - 159 mg/dL: Borderline High 160 - 189 mg/dL: High >190 mg/dL: Very High Triglycerides 66 <150 mg/dL 12/24/2024 9:07 AM CDT [facility] Comment: ATP III Classification of Triglycerides: <150 mg/dL: Normal 150 - 199 mg/dL: Borderline High 200 - 400 mg/dL: High >500 mg/dL: Very High Blood BLOOD SPECIMEN / Unknown Venipuncture / Unknown 12/24/2024 8:24 AM CDT 12/24/2024 8:41 AM CDT Fred Jo MD LAB - CHEMISTRY ORDERAB LES Final Result [facility] [address] [place] [address], [facility] [phone] * XR Knee Bilat Standing 1Vw (12/02/2024 [...] DIAGNOSTIC IMAGING ORDERABLES Fi nal Result * BONE DENSITY AXIAL SKELETON(1OR MORE SITES)[id number] (02/02/2022 9:11 AM CDT) Anatomical Region Laterality [...] ordering physician and is also available on [employer], the Radiology Department's computerized picture archive system. [...] Gregory Acuña on 02/02/2022 4:08 PM . IDr. PRIMO D.O. have personally reviewed and interpreted this [...] theordering physician and is also available on [employer], the Radiology Department's computerized picture archive system. [...] Gregory Acuña on 02/02/2022 4:[address] PRIMO Adams D.O. have personally reviewed and interpreted this examination/study. This report was electronically signed by PRIMO ROA D.O. on02/02/2022 4:15 PM . Francesca Calderón DEVELOPMENTAL MATHEMATICS INSTRUCTOR-BRANCHER DEXA ORDERABLES Final R esult * COLONOSCOPY (11/17/2021) us Historical Provider MD SCANNING ONLY Final Res ult * MAMMOGRAM (11/09/2021) Anatomical Region Laterality Modality Other us Historical Provider MD SCANNING ONLY Final Res ult from Last 3 Months or Most Recently Relevant to Health Maintenance Insurance [facility] MEDICARE [facility] SELF PAY NO INSURANCE Member Subscriber Plan / Payer (Ef fective for All Dates) Name:Brandy Smith Member ID:Not on file Relation to Subscriber:Not on file Name:BRANDY SMITH Subscriber ID:Not on file (Home) Address: [address] [place] [address] Payer ID:Not on file Group ID:Not on file Type:Self Pay Address: [place], [place] Advance Directives * Full Code (Latest Code [...] 11:24 AM 01/27/2022 1:13 PM Care Teams Rotational Moulding Operator Relationship Specialty Start Date End Date Compa Sam MD [address] [place] [address] PCP - General 12/28/22 Compa Sam MD [address] [place] [address] Family Medicine 09/29/22 Quintin Hope MD [address] [facility] [address] [place] [address] Nephrology 04/10/24
--- OUTSIDE RECORDS SUMMARY | 2025-02-14 10:38 | XMS_ITS | Encounter Summary ---
Author Organization [facility] Healthcare Address [address] [place] [address] Care Team Providers Care Cardiothoracic Physiotherapist Name Role Phone Compa Sam MD Primary Care Provider [phone] Encounter Details Date Type Department Care Team (Late st Contact Info) Description 02/13/2025 Orders Only [facility] [address] [address] Provider, MD [place] [address] [place] [address] Social History Tobacco Use Types Packs/Day Years Used Date Smoking Tobacco: Never Smokeless Tobacco: Never Comments Unknown Sex and Gender Information Value Date Recorded Sex Assigned at Not on file Legal Sex Female 8:13 AM CDT Gender Identity Not on file Sexual Orientation Not on file documented as of this encounter Plan of Treatment Not on file documented as of this encounter Procedures Procedure Name Priority Date/Time Associated Diagnosis Comments CREATININE Routine 12/24/2024 4:08 PM CDT documented in this encounter Results * (ABNORMAL) CREATININE (12/24/2024 4:08 PM CDT) SCRIBED Creatinine 8.5(A) 0.56 - 0.96 mg/dl EXTERNAL LAB SCRIBED eGFR in 5(A) >=90 EXTERNAL LAB SCRIBED eGFR in NonAfrican Belgian 5(A) >=90 EXTERNAL LAB Historical Provider HEALTH MAINTENANCE Edited Result - Final EXTERNAL LAB documented in this encounter Visit Diagnoses Not on filedocumented in this encounter Care Teams Cardiothoracic Physiotherapist Relationship Specialty Start Date End Date Compa Sam MD [address] [place] [address] PCP - General Family Medicine 12/04/23 documented as of this encounter
--- OUTSIDE RECORDS SUMMARY | 2025-02-14 10:38 | XMS_ITS | Encounter Summary ---
Author Organization [facility] Address [address] [place] [address] Care Team Providers Care Leasing Assistant Name Role Phone Compa Sam MD Unavailable [phone] Compa Sam MD Primary Care Provider [phone] Quintin Hope MD Unavailable [phone] Encounter Details Date Type Department Care Team (Late st Contact Info) Description 01/31/2025 Lab Requisition [facility] MAIN LAB [address] [place] [id number] Quintin Snow MD [facility] [place] [address] Social History Tobacco Use Types Packs/Day Years [...] on file 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 Author Blood Pressure < 140/90 Blood Pressure 156/106(01/27 1:10 PM CDT) No Lilian Sky RN Medication Management General On track( 024 12:38 PM CDT) No Tabitha Vizcarra RN Note: Expected end date: ONGOING Interventions: Take all medications as prescribed Let your doctor know right away about any changes in your medications Make sure to request a refill of your medication at least one week prior to your last dose Medication Management General No Vizcarra, Tabitha M, RN Note: Expected end date: ongoing Interventions: Take all medications as prescribed Let your doctor know right away about any changes in your medications Make sure to request a refill of your medication at least one week prior to your last dose documented as of this encounter Procedures Procedure Name Priority Date/Time Associated Diagnosis Comments HOLD HLA SPECIMEN Routine 01/28/2025 11: 06 AM CDT documented in this encounter Results * HOLD HLA SPECIMEN (01/28/2025 11:06 AM CDT) Hold HLA Specimen 01/31/2025 12:32 PM CDT [facility] Comment:The Hold HLA specime n has been received into the lab and will be held for 5 years at 4 degrees. Blood BLOOD SPECIMEN / Unknown 01/28/2025 11:06 AM CDT 01/31/2025 11:06 AM CDT Quintin Snow MD LAB - BLOOD BANK ORDERABLES F inal Result [facility] ([facility]) [address] [place] [address], [facility] documented in this encounter Visit Diagnoses Not on filedocumented in this encounter Care Teams Leasing Assistant Relationship Specialty Start Date End Date Compa Sam MD [address] [place] [address] PCP - General 12/28/22 Compa Sam MD [address] [place] [address] Family Medicine 09/29/22 Quintin Hope MD [address] [facility] [address] [place] [address] Nephrology 04/10/24 documented as of this encounter
--- OUTSIDE RECORDS SUMMARY | 2025-02-14 10:38 | XMS_ITS | Clinical Summary ---
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 Gender Identity Not on file Sexual Orientation Not on file Plan of Treatment Health Maintenance Due Date Last Done Comments Hepatitis C Virus (HCV) Screening 1960 TdaP Immunization 1960 Colonoscopy 02/10/2004 Colorectal Cancer Screening 02/10/2004 Cologuard 2009 Immunochemical Fecal Occult Blood 2009 Pneumococcal Immunization (5 0+ years) (1 of 1 - PCV) 2009 Zoster Immunization (1 of 2) 2009 Influenza Immunization (#1) 2024 SARS-COV-2 Immunization ( season) 2024 12/07/2020, 11/16/2020 Respiratory Syncytial Virus (RSV) Immunization (Adult) (1 - 1-dose 75+ series) 2034 Hepatitis B Immunization Aged Out No longer eligible based on patient's age to complete this topic Meningococcal Immunization (ACWY) Aged Out No longer eligible b ased on patient's age to complete this topic Rotavirus Immunization Aged Out No lo nger eligible based on patient's age to complete this topic
--- OUTSIDE RECORDS SUMMARY | 2025-02-14 10:38 | XMS_ITS ---
Author Organization [facility] Address [address] [place] [address] Care Team Providers Care Farm Equipment Service Technician Name Role Phone Compa Sam MD Unavailable [phone] Compa Sam MD Primary Care Provider [phone] Quintin Hope MD Unavailable [phone] Transplant Episode Kidney Candidate [facility] [place] - [facility] Center waitlisted on 05/10/2023 Marked as Inactive on 10/10/2024 Reason: Temporarily too Sick Kidney CoordinatorLilian Sky RN Phone: N/A Fax: N/A Email: N/A Scores Score Value Updated Exceptions/Reas ons CPRA Not available EPTS (Calc) 89 02/14/2025 [facility] [place] [facility] Diagnosis 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 Care Team Name Role Phone Fax Email Lilian Sky RN Kidney Coordinator N/A N/A N/A Reva Edmond MD Transplant Brokerage Manager [phone] N/A Quintin Hope MD Referring Physician [phone] N/A Joyce Dobson Purchaser N/A N/A N/A Events Pre-Transplant Referred: 06/14/2022 Evaluation began: 07/12/2022 Committee: 04/13/2023 [facility]OS qualified: 06/16/2022 Center waitlisted: 05/10/2023 Dialysis History Dialysis History Start End Type Comments Center 12/26/2023 [facility] 06/16/2022 12/25/2023 Home-[facility]as,W,F; PD tra ining starts 10/25 [facility] Dialysis Center Information Center Phone Fax Address [facility] [phone] [address] [address]
--- OUTSIDE RECORDS SUMMARY | 2025-02-14 10:38 | XMS_ITS | Encounter Summary ---
Author Organization [facility] Address [address] [facility] [place] [address] Care Team Providers Care Reinforced Ironworker Name Role Phone Compa Sam MD Unavailable [phone] Compa Sam MD Primary Care Provider [phone] Quintin Hope MD Unavailable [phone] Encounter Details Date Type Department Care Team (Late st Contact Info) Description 08/09/2024 Lab Requisition [facility] MA[facility] LAB [address] [place] [phone] Quintin Snow MD [facility] [place] [address] Social History Tobacco Use Types Packs/Day Years [...] on file 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 Blood BLOOD SPECIMEN / Unknown 08/05/2024 10:50 AM CAR RENTAL AGENT 08/09/2024 10:50 AM CAR RENTAL AGENT Quintin Snow MD LAB - BLOOD BANK ORDERABLES F inal Result [facility] ([facility]) [address] [place] [address], [facility] documented in this encounter Visit Diagnoses Not on filedocumented in this encounter Care Teams Reinforced Ironworker Relationship Specialty Start Date End Date Compa Sam MD [address] [place] [address] PCP - General 12/28/22 Compa Sam MD [address] [place] [address] Family Medicine 09/29/22 Quintin Hope MD [address] [facility] [address] [place] [address] Nephrology 04/10/24 documented as of this encounter
--- OUTSIDE RECORDS SUMMARY | 2025-02-14 10:38 | XMS_ITS | Encounter Summary ---
Author Organization [facility] Address [address] [facility] [facility] [address] Care Team Providers Care Merchandise Director Name Role Phone Compa Sam MD Unavailable [phone] Compa Sam MD Primary Care Provider [phone] Quintin Hope MD Unavailable [phone] Encounter Details Date Type Department Care Team (Late st Contact Info) Description 12/04/2024 Lab Requisition [facility] MA[facility] LAB [address] [place] [phone] Quintin Snow MD [facility] [place] [address] Social History Tobacco Use Types Packs/Day Years [...] on file Legal Sex Female 8:35 AM 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 Blood BLOOD SPECIMEN / Unknown 11/29/2024 10:43 AM CROSS COUNTRY/TRACK AND FIELD COACH 12/04/2024 10:43 AM CDT Quintin Snow MD LAB - BLOOD BANK ORDERABLES F inal Result [facility] ([facility]) [address] [place] [address], [facility] documented in this encounter Visit Diagnoses Not on filedocumented in this encounter Care Teams Merchandise Director Relationship Specialty Start Date End Date Compa Sam MD [address] [place] [address] PCP - General 12/28/22 Compa Sam MD [address] [place] [address] Family Medicine 09/29/22 Quintin Hope MD [address] [facility] [address] [place] [address] Nephrology 04/10/24 documented as of this encounter
--- OUTSIDE RECORDS SUMMARY | 2025-02-14 10:38 | XMS_ITS | Encounter Summary ---
Author Organization [facility] Address [address] [facility] [address] [place] [address] Care Team Providers Care Early Childhood Aide Classroom Name Role Phone Compa Sam MD Unavailable [phone] Compa Sam MD Primary Care Provider [phone] Quintin Hope MD Unavailable [phone] Encounter Details Date Type Department Care Team (Late st Contact Info) Description 10/09/2023 Lab Requisition [facility] MA[facility] LAB [address] [place] [phone] Quintin Snow MD [facility] [place] [address] Social History Tobacco Use Types Packs/Day Years [...] on file Legal Sex Female 8:35 AM NETWORK OPERATIONS TECHNICIAN Gender Identity Not on file Sexual Orientation [...] HLA SPECIMEN Routine 09/29/2023 12: 00 PM NETWORK OPERATIONS TECHNICIAN documented in this encounter Results * HOLD HLA SPECIMEN (09/29/2023 12:00 PM NETWORK OPERATIONS TECHNICIAN) Hold HLA Specimen 10/09/2023 4:01 PM NETWORK OPERATIONS TECHNICIAN [facility] Comment:The Hold HLA specime n has been received into the lab and will be held for 5 years at 4 degrees. Blood BLOOD SPECIMEN / Unknown 09/29/2023 12:00 PM NETWORK OPERATIONS TECHNICIAN 10/09/2023 2:53 PM NETWORK OPERATIONS TECHNICIAN Quintin Snow MD LAB - BLOOD BANK ORDERABLES F inal Result [facility] ([facility]) [facility] [address] documented in this encounter Visit Diagnoses Not on filedocumented in this encounter Care Teams Early Childhood Aide Classroom Relationship Specialty Start Date End Date Compa Sam MD [address] [facility] [address] [place] [address] PCP - General 12/28/22 Compa Sam MD [address] [facility] [address] [place] [address] Family Medicine 09/29/22 Quintin Hope MD 1034 [facility] [address] [place] [address] Nephrology 04/10/24 documented as of this encounter
--- OUTSIDE RECORDS SUMMARY | 2025-02-14 10:38 | XMS_ITS | Encounter Summary ---
Author Organization [facility] Address [address] [facility] [place] [address] Care Team Providers Care Stock Ranch Supervisor Name Role Phone Debbie Middleton Primary Care Provider + [phone] Compa Sam MD Primary Care Provider [phone] Debbie Middleton Primary Care Provider [phone] Compa Sam MD Unavailable [phone] Debbie Middleton Primary Care Provider [phone] Compa Sam MD Primary Care Provider [phone] Quintin Hope MD Unavailable [phone] Encounter Details Date Type Department Care Team (Late st Contact Info) Description 04/22/2022 Telephone [facility] - [address] [place] [address] Samara Auguste, RN Social History Tobacco Use [...] on file Legal Sex Female 8:35 AM COREMAKING SUPERVISOR Gender Identity Not on file Sexual Orientation [...] advise. Dr. Sotomayor notified.Please return call @ [phone]. documented in this encounter Plan of Treatment [...] documented as of this encounter Care Teams Stock Ranch Supervisor Relationship Specialty Start Date End Date Debbie Middleton APRN-CUTTING AND BONING SUPERVISOR PCP - General 10/06/21 08/29/22 Compa Sam MD [address] [place] [address] PCP - General Family Medicine 08/30/22 09/25/22 Debbie Middleton APRN-CUTTING AND BONING SUPERVISOR PCP - General 09/26/22 09/28/22 Debbie Middleton APRN-CUTTING AND BONING SUPERVISOR PCP - General 10/11/22 12/27/22 Compa Sam MD [address] [place] [address] PCP - General 12/28/22 Compa Sam MD [address] [place] [address] Family Medicine 09/29/22 Quintin Hope MD [address] [place] [address] [address] [place] [address] Nephrology 04/10/24 documented as of this encounter
--- OUTSIDE RECORDS SUMMARY | 2025-02-14 10:38 | XMS_ITS | Encounter Summary ---
Author Organization [facility] Address [address] [facility] [place] [address] Care Team Providers Care Geochemical Laboratory Technician Name Role Phone Debbie Middleton Primary Care Provider + [phone] Compa Sam MD Primary Care Provider [phone] Debbie Middleton Primary Care Provider [phone] Compa Sam MD Unavailable [phone] Debbie Middleton Primary Care Provider [phone] Compa aSm MD Primary Care Provider [phone] Quintin Hope MD Unavailable [phone] Reason for Visit * Reason Comments Kidney Transplant Follow-up Encounter Details Date Type Department Care Team (Late st Contact Info) Description 05/09/2022 Telephone [facility] - [address] [address] Samara Auguste, RN Kidney Transplant Follow-up Social History [...] on file 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 Gender Identity Not on file Sexual Orientation [...] General On track( 024 12:38 PM CDT) Tabitha Piedra, RN Note: Expected end date: ONGOING Interventions: [...] documented as of this encounter Care Teams Geochemical Laboratory Technician Relationship Specialty Start Date End Date Debbie Middleton APRN-CNP PCP - General 10/06/21 08/29/22 Compa Sam MD [address] [facility] [address] [place] [address] [place] [address] PCP - General Family Medicine 08/30/22 09/25/22 Debbie Middleton APRN-CNP PCP - General 09/26/22 09/28/22 Debbie Middleton APRN-CNP PCP - General 10/11/22 12/27/22 Compa Sam MD [address] [place] [address] PCP - General 12/28/22 Compa Sam MD [address] [facility] [address] [place] [address] Family Medicine 09/29/22 Quintin Hope MD [address] [facility] [address] [place] [address] Nephrology 04/10/24 documented as of this encounter
--- OUTSIDE RECORDS SUMMARY | 2025-02-14 10:38 | XMS_ITS | Encounter Summary ---
Author Organization [facility] Address [address] [facility] [address] Care Team Providers Care Pasting Machine Operator Name Role Phone Compa Sam MD Unavailable [phone] Compa Sam MD Primary Care Provider [phone] Quintin Hope MD Unavailable [phone] Encounter Details Date Type Department Care Team (Late st Contact Info) Description 09/13/2024 Lab Requisition [facility] MAIN LAB [address] [place] [phone] Quintin Snow MD [facility] [place] [address] Social History Tobacco Use Types Packs/Day Years [...] on file Legal Sex Female 8:35 AM SWATCH CHECKER Gender Identity Not on file Sexual Orientation [...] HLA SPECIMEN Routine 08/27/2024 1:0 4 PM SWATCH CHECKER documented in this encounter Results * HOLD HLA SPECIMEN (08/27/2024 1:04 PM SWATCH CHECKER) Hold HLA Specimen 09/13/2024 2:32 PM SWATCH CHECKER [facility] Comment:The Hold HLA specime n has been received into the lab and will be held for 5 years at 4 degrees. Blood BLOOD SPECIMEN / Unknown 08/27/2024 1:04 PM SWATCH CHECKER 09/13/2024 1:04 PM SWATCH CHECKER Quintin Snow MD LAB - BLOOD BANK ORDERABLES F inal Result [facility] ([facility]) [address] [place] [address], [facility] documented in this encounter Visit Diagnoses Not on filedocumented in this encounter Care Teams Pasting Machine Operator Relationship Specialty Start Date End Date Compa Sam MD [address] [place] [address] PCP - General 12/28/22 Compa Sam MD [address] [place] [address] Family Medicine 09/29/22 Quintin Hope MD [address] [facility] [address] [place] [address] Nephrology 04/10/24 documented as of this encounter
--- OUTSIDE RECORDS SUMMARY | 2025-02-14 10:38 | XMS_ITS | Encounter Summary ---
Author Organization [facility] Healthcare Address [address] [place] [address] Care Team Providers Care Parts Facilitator Name Role Phone Compa Sam MD Primary Care Provider [phone] Reason for Visit * Reason Comments Follow-up TYPE 2 DM Encounter Details Date Type Department Care Team (Latest Contact Info) Description 02/13/2025 1:15 PM CDT Office Visit [facility] [address] [place] [phone] [place]it[place] [id number] [place] [id number] Type 2 diabetes mellitus with hyperglycemia, without long-term current use of insulin (HCC) (Primary Dx); Essential hypertension Social History Tobacco Use Types Packs/Day Years Used Date Smoking Tobacco: Never Smokeless Tobacco: Never Comments Unknown Sex and Gender Information Value Date Recorded Sex Assigned at Not on file Legal Sex Female 8:13 AM CDT Gender Identity Not on file Sexual Orientation Not on file documented as of this encounter Last Filed Vital Signs Vital Sign Reading Time Taken Comments Blood Pressure 172/96 02/13/2025 1:26 PM CDT Pulse 100 02/13/2025 1:26 PM CDT Temperature - - Respiratory Rate 18 02/13/2025 1:26 PM CDT Oxygen Saturation - - Inhaled Oxygen Concentration - - Weight 80.5 kg (177 lb 6.4 oz) 02/13/2025 1:26 P M CDT Height 162.6 cm (5' 4) 02/13/2025 1:26 PM CDT Body Mass Index 30.45 02/13/2025 1:26 PM CDT documented in this encounter Patient Instructions * Patient Instructions* Letitia Astorga PA - 02/13/2025 1:15 PM CDT Use Lantus 8 units the day of a steroid injection, and for the next 2-3 days depending on your blood sugars. Can use Humalog as needed with this but at a lower dose: 4 units up to 4 times a day If >200 take 6 units If >300 take 8 units documented in this encounter Ordered Prescriptions Prescription Sig Dispense Quantity Refills Last Filled Start Date End Date insulin glargine (LANTUS) 100 unit/mL (3 mL) pen for injection Inject 8 units once daily when you have steroid injections 15 mL 02/13/2025 documented in this encounter Progress Notes * Letitia Astorga PA - 02/13/2025 1:15 PM CDT Images from the original note were not included. [facility] ENDOCRINOLOGY Diabetes Follow Up Visit Subjective/Objective Patient ID: Brandy Casey is a 65 y.o. female who comes in today to our Endocrinology clinic to follow up for DM management. Chief Complaint Follow-up (TYPE 2 DM ) HPI Last OV was initial visit with Dr Sunil rees in 03/18. Diabetes complications and/or comorbidity include: ESRD on PD, paroxysmal afib Current medications: Januvia 25 mg HL per SS (mainly around steroid injections) 6 units aC If >200 take 8 units If >300 take 10 units Dietary habits: unchanged Exercise routine: limited Home CBG monitoring results: checks blood sugars 4x/day via [email or web address]. Unable to download today, had [email or web address].sh her cora. Got her connected while in the office. Neuropathy: Last foot exam: 02/16 Statin therapy: Yes. Rosuvastatin 20 mg. Last lipid panel: 01/17. Nephropathy: On ROXANA-I / ARB: No. Last MA: N/A- ESRD on PD. Last creat/GFR: 01/17. Retinopathy: Date of last eye examination: 10/19 HTN - on diltiazem, metoprolol, bumetanide. Just added nifedipine back today bc BP has been high. Wt Readings from Last 5 Encounters: 02/13/25 80.5 kg (177 lb 6.4 oz) 10/25/24 79.4 kg (175 lb) 03/18/24 79.3 kg (174 lb 14.4 oz) 08/08/22 83.2 kg (183 lb 6.4 oz) 07/20/22 81.3 kg (179 lb 4.8 oz) Labs: Last A1c: Lab Results Component Value Date HGBA1C 7.6 (A) 02/13/2025 HGBA1C 5.2 03/18/2024 Vitals: 02/13/25 1326 BP: (!) 172/96 BP Location: Right arm Patient Position: Sitting Pulse: 100 Resp: 18 Weight: 80.5 kg (177 lb 6.4 oz) Height: 162.6 cm (5' 4) Physical Exam Vitals reviewed. Constitutional: General: She is awake. Appearance: Normal appearance. HENT: Head: Normocephalic and atraumatic. Cardiovascular: Rate and Rhythm: Normal rate and regular rhythm. Pulses: Dorsalis pedis pulses are 2+ on the right side and 2+ on the left side. Heart sounds: Normal heart sounds. Pulmonary: Effort: Pulmonary effort is normal. Breath sounds: Normal breath sounds. Musculoskeletal: Right lower leg: No edema. Left lower leg: No edema. Right foot: No deformity. Left foot: No deformity. Feet: Right Foot: Monofilament exam: normal. Protective Sensation: 5 sites tested. 5 sites sensed. Skin Integrity: Negative for ulcer or callus. Left Foot: Monofilament exam: normal. Protective Sensation: 5 sites tested. 5 sites sensed. Skin Integrity: Negative for ulcer or callus. Neurological: General: No focal deficit present. Mental Status: She is alert. Psychiatric: Attention and Perception: Attention normal. Mood and Affect: Mood normal. Behavior: Behavior normal. Assessment/Plan Diagnoses and all orders for this visit: Type 2 diabetes mellitus with hyperglycemia, without long-term current use of insulin (HCC) (Primary) Assessment & Plan: Chronic problem, not at goal. Unable to download Rubia report today, I reconnected them in office and she'll put a new Rubia on. She notices on steroid injections that her sugars stay diffusely high x 24 hrs for a few days after, that HL scale brings them down shortly and then they increase again, often into 300s. When no steroid injection, states overnight readings are stable around 200 or belowno matter type of overnight dialysate she uses. Gave her Lantus to use only for couple days around steroid injection, take 8 units once daily. Can stop it once sugars return to normal. Lower HL scaleto 4 units, >200 take 6, >300 take 8 units. Reviewed avoiding hypoglycemia given ESRD. Request eye exam today. Orders: - POCT hemoglobin A1c - POCT glucose Essential hypertension Assessment & Plan: Chronic problem, not at goal. She just had her BP meds adjusted today by nephrology. No changes at this time. Other orders - insulin glargine (LANTUS) 100 unit/mL (3 mL) pen for injection; Inject 8 units once daily when you have steroid injections KATARZYNA Landrum * Donna Minor MA - 02/13/2025 1:15 PM CDT Lab Abstracted and resulted. documented in this encounter Miscellaneous Notes * Assessment & Plan Note - Letitia Astorga PA - 02/13/2025 2:17 PM CDT Associated Problem(s): Type 2 diabetes mellitus with hyperglycemia, without long-term current use of insulin (HCC) Chronic problem, not at goal. Unable to download Ruiba report today, I reconnected them in office and she'll put a new Rubia on. She notices on steroid injections that her sugars stay diffusely high x 24 hrs for a few days after, that HL scale brings them down shortly and then they increase again, often into 300s. When no steroid injection, states overnight readings are stable around 200 or belowno matter type of overnight dialysate she uses. Gave her Lantus to use only for couple days around steroid injection, take 8 units once daily. Can stop it once sugars return to normal. Lower HL scaleto 4 units, >200 take 6, >300 take 8 units. Reviewed avoiding hypoglycemia given ESRD. Request eye exam today. * Assessment & Plan Note - Letitia Astorga PA - 02/13/2025 2:15 PM CDT Associated Problem(s): Essential hypertension Chronic problem, not at goal. She just had her BP meds adjusted today by nephrology. No changes at this time. documented in this encounter Plan of Treatment Not on file documented as of this encounter Procedures Procedure Name Priority Date/Time Associated Diagnosis Comments POCT HEMOGLOBIN A1C Routine 02/13/2025 1 :29 PM CDT Type 2 diabetes mellitus with hyperglycemia, without long-term current use of insulin (HCC) POCT GLUCOSE Routine 02/13/2025 1:29 PM CDT Type 2 diabetes mellitus with hyperglycemia, without long-term current use of insulin (HCC) documented in this encounter Results * (ABNORMAL) POCT glucose (02/13/2025 1:29 PM CDT) Glucose Blood, POC 260 Normal Fasting 70 - 100, Random <200 mg/dL Comment:PPG 2 Hrs Blood 02/13/2025 1:29 PM CDT Letitia COLÓN POINT OF CARE TEST ORDE RABLES Final Result * (ABNORMAL) POCT hemoglobin A1c (02/13/2025 1:29 PM CDT) Hemoglobin A1C, POC 7.6(A) 4.0 - 5.6 % Capillary blood 02/13/2025 1 :29 PM CDT Letitia COLÓN POINT OF CARE TEST ORDE RABLES Final Result documented in this encounter Visit Diagnoses Diagnosis Type 2 diabetes mellitus with hyperglycemia, without long-term current use of insulin (HCC)- Primary Essential hypertension Unspecified essential hypertension documented in this encounter Discontinued Medications Medication Sig Discontinue Reason Start Date End Da te belaTACEPT (NULOJIX) 250 mg recon soln Infuse 450 mg into a venous catheter once every four weeks Therapy completed 01/31/2021 01/14/2025 NIFEdipine CC 60 mg 24 hr tablet Take 1 tablet (60 mg total) by mouth 2 (two) times a day Therapy completed 01/14/2025 NIFEDIPINE ORAL Therapy completed 10/25/2021 01/14/2025 ALPRAZolam XR (XANAX XR) 0.5 mg 24 hr tablet Take 0.25 mg by mouth nightly Therapy completed 01/14/2025 folic acid (FOLVITE) 1 mg tablet Take 1 tablet (1,000 mcg total) by mouth daily Therapy completed 01/14/2025 ALPRAZolam (XANAX) 0.5 mg tablet TAKE 1 TABLET BY MOUTH ONCE DAILY FOR ANXIETY ONSET. Therapy completed 02/29/2024 01/14/2025 diphenhydrAMINE (BENADRYL) 25 mg capsule Take 2 tablet/capsule (50 mg total) by mouth nightly Therapy completed 01/14/2025 NIFEdipine (NIFEdipine XL) 30 mg 24 hr tablet Take 2 tablets (60 mg total) by mouth 2 (two) times a day Patient Reported 02/13/2025 traZODone (DESYREL) 50 mg tablet TAKE 3 TABLETS BY MOUTH AT BEDTIME FOR INSOMNIA Patient Reported 02/13/2025 documented as of this encounter Care Teams Parts Facilitator Relationship Specialty Start Date End Date Compa Sam MD [address] [place] [address] PCP - General Family Medicine 12/04/23 documented as of this encounter
--- OUTSIDE RECORDS SUMMARY | 2025-02-14 10:38 | XMS_ITS | Encounter Summary ---
Author Organization [facility] Address [address] [facility] [place] [address] Care Team Providers Care Awnings Mechanic Name Role Phone Debbie Middleton Primary Care Provider [phone] Compa Sam MD Primary Care Provider + [phone] Debbie Middleton Primary Care Provider [phone] Compa Sam MD Unavailable [phone] Debbie Middleton Primary Care Provider [phone] Compa Sam MD Primary Care Provider [phone] Quintin Hope MD Unavailable [phone] Encounter Details Date Type Department Care Team (Late st Contact Info) Description 04/27/2022 Lab Requisition [facility] Pathology Lab [address] [place] [address] Mary Alan MD [address] [place], [place] [id number] Chronic kidney disease, stage 3b; Kidney transplant [...] on file Legal Sex Female 8:35 AM CLOUD ARCHITECT Gender Identity Not on file Sexual Orientation [...] CDT) Case Report Gynecologic Cytology Report Case: [id number] Authorizing Provider: Mary Alan MD Collected: 04/26/2022 11:56 AM Ordering Location: [facility] Care Pathology Lab Received: 04/27/2022 11:44 AM First Screen: Zaid Umaña Specimen: EM RENAL - SLU, Kidney, Left, Thee pieces approx. 1.5 mm long@ 05/05/2022 3:24 PM CDT [facility] PATHOLOGY LAB Electron Microscopy Technical Summary # of Block(s) cut: 5 # of Glomeruli found: 1 # of Glomeruli photographed: 1 05/05/2022 3:24 PM CDT [facility] PATHOLOGY LAB Embedded Images - EM 05/05/2022 3:24 PM CDT [facility] PATHOLOGY LAB Pathology/Cytolo gy (Kidney, Left) 04/26/2022 11:56 AM CDT 04/27/2022 11:44 AM CDT Mary Alan MD LAB - PATHOLOGY/CYTOLOGY ORDER JOSEPH Final Result [facility] PATHOLOGY LAB [address] [phone] documented in this encounter Visit Diagnoses Diagnosis Chronic kidney disease, stage 3b (HCC) 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 Acute kidney failure, unspecified documented in this encounter Additional Health Concerns Infection Onset Date Last Indicated Resolved Time COVID-19 Under Investigation 07/15/2022 07/15/2022 07/26/2022 4:33 AM CDT documented as of this encounter Care Teams Awnings Mechanic Relationship Specialty Start Date End Date Debbie Middleton APRN-TRANSPLANT SURGEON PCP - General 10/06/21 08/29/22 Compa Sam MD [address] [phone] PCP - General Family Medicine 08/30/22 09/25/22 Debbie Middleton APRN-TRANSPLANT SURGEON PCP - General 09/26/22 09/28/22 Debbie Middleton APRN-TRANSPLANT SURGEON PCP - General 10/11/22 12/27/22 Compa Sam MD [address] [place] [address] PCP - General 12/28/22 Compa Sam MD [address] [place] [address] Family Medicine 09/29/22 Quintin Hope MD [address] [facility] [address] [place] [address] Nephrology 04/10/24 documented as of this encounter
--- OUTSIDE RECORDS SUMMARY | 2025-02-14 10:38 | XMS_ITS | Encounter Summary ---
Author Organization [facility] Address [address] [facility] [place] [address] Care Team Providers Care Tail Edger Name Role Phone Debbie Middleton Primary Care Provider + [phone] Compa Sam MD Primary Care Provider + [phone] Debbie Middleton Primary Care Provider [phone] Compa Sam MD Unavailable [phone] Debbie Middleton Primary Care Provider [phone] Compa Sam MD Primary Care Provider + [phone] Quintin Hope MD Unavailable [phone] Reason for Visit * Reason Onset Date Comments MEDICATION REFILL 05/26/2022 Encounter Details Date Type Department Care Team (Late st Contact Info) Description 05/26/2022 Refill [facility] - Nephrology [address] [place] [address], [place] [id number] Abhi Jackson MD [address] [place] [address] [place] [address] MEDICATION REFILL Social History Tobacco [...] on file 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 Gender Identity Not on file Sexual [...] documented as of this encounter Care Teams Tail Edger Relationship Specialty Start Date End Date Debbie Middleton APRN-BATCH MAKER PCP - General 10/06/21 08/29/22 Compa Sam MD [address] [phone] PCP - General Family Medicine 08/30/22 09/25/22 Debbie Middleton APRN-CNP PCP - General 09/26/22 09/28/22 Debbie Middleton APRN-BATCH MAKER PCP - General 10/11/22 12/27/22 Compa Sam MD [address] [facility] [address] [place] [address] PCP - General 12/28/22 Compa Sam MD [address] [facility] [address] [place] [address] Family Medicine 09/29/22 Quintin Hope MD [address] [facility] [address] [place] [address] Nephrology 04/10/24 documented as of this encounter
--- OUTSIDE RECORDS SUMMARY | 2025-02-14 10:38 | XMS_ITS | Encounter Summary ---
Author Organization [facility] Health Address [address] [place] [address] Care Team Providers Care Social Media Strategist Name Role Phone Meryl Lacy Primary Care Provider [phone] Debbie Middleton Primary Care Provider [phone] Compa Sam MD Primary Care Provider + [phone] Debbie Middleton Primary Care Provider [phone] Compa aSm MD Unavailable [phone] Debbie Middleton Primary Care Provider [phone] Compa Sam MD Primary Care Provider + [phone] Quintin Hope MD Unavailable [phone] Encounter Details Date Type Department Care Team (Late st Contact Info) Description 01/21/2021 [facility] Outpatient Visit [facility] [address] [place] [address] Estee Lindsey, RN LACTATION CONSULTANT-BLOCK CUTTER [address] [facility] [place] [address] Social History Tobacco Use Types Packs/Day Years Used Date Smoking Tobacco: Never Comments Unknown Sex and Gender Information Value Date Recorded Sex Assigned at Not on file Legal Sex Female 8:35 AM REIMBURSEMENT ANALYST Gender Identity Not on file Sexual Orientation Not on file COVID-19 Exposure Response Date Recorded In the last month, have you been in contact with someone who was confirmed or suspected to have Coronavirus / COVID-19? No / Unsure 01/21/2021 2:26 PM CDT documented as of this encounter Plan of Treatment Not on file documented as of this encounter Visit Diagnoses Not on filedocumented in this encounter Additional Health Concerns Infection Onset Date Last Indicated Resolved Time COVID-19 Under Investigation 07/15/2022 07/15/2022 07/26/2022 4:33 AM CDT documented as of this encounter Care Teams Social Media Strategist Relationship Specialty Start Date End Date Meryl Lacy DO [address] [place] [address] PCP - General 03/25/21 10/05/21 Debbie Middleton APRN-CNP [address] [place] [address] PCP - General 10/06/21 08/29/22 Compa Sam MD [address] [facility] [address] [address] PCP - General Family Medicine 08/30/22 09/25/22 Debbie Middleton APRN-CNP [address] [place] [address] PCP - General 09/26/22 09/28/22 Debbie Middleton APRN-CNP [address] [place] [address] PCP - General 10/11/22 12/27/22 Compa Sam MD [address] [place], [place] [id number] PCP - General 12/28/22 Compa Sam MD [address] [facility] [address] [place] [address] Family Medicine 09/29/22 Quintin Hope MD [address] [facility] [address] [place] [address] Nephrology 04/10/24 documented as of this encounter
--- OUTSIDE RECORDS SUMMARY | 2025-02-14 10:38 | XMS_ITS | Encounter Summary ---
Author Organization [facility] Address [address] [facility] [address] Care Team Providers Care Nuclear Chemistry Technician Name Role Phone Debbie Middleton Primary Care Provider [phone] Compa Sam MD Primary Care Provider + [phone] Debbie Middleton Primary Care Provider [phone] Compa Sam MD Unavailable [phone] Debbie Mdidleton Primary Care Provider [phone] Compa Sam MD Primary Care Provider [phone] Quintin Hope MD Unavailable [phone] Encounter Details Date Type Department Care Team (Late st Contact Info) Description 02/02/2022 Lab Requisition [facility] Pathology Lab [address] [place] [address] Reva Edmond MD [address] [facility] 3[facility] [place] [address] Other care home (current) drug therapy Social History Tobacco Use [...] on file 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 1 mm long. 02/07/2022 3:33 PM CDT [facility] PATHOLOGY LAB Electron Microscopy Technical Summary # of Block(s) cut: 2 # of Glomeruli found: 1 # of Glomeruli photographed: 1 02/07/2022 3:33 PM CDT [facility] PATHOLOGY LAB Embedded Images - EM 02/07/2022 3:33 PM CDT [facility] PATHOLOGY LAB Pathology/Cytolo gy BIOPSY OF TRANSPLANTED KIDNEY USING ULTRASOUND GUIDANCE / Unknown 01/27/2022 7:57 AM CDT 02/02/2022 10:09 AM CDT us Reva Edmond MD LAB - PATHOLOGY/CYTOLOGY ORD ERABLES Final Result Performing Organization Address [facility]/State/[facility] Co de Phone Number [facility] PATHOLOGY LAB [address] [phone] documented in this encounter Visit Diagnoses Diagnosis 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 documented in this encounter Additional Health Concerns Infection Onset Date Last Indicated Resolved Time COVID-19 Under Investigation 07/15/2022 07/15/2022 07/26/2022 4:33 AM CDT documented as of this encounter Care Teams Nuclear Chemistry Technician Relationship Specialty Start Date End Date Debbie Middleton APRN-CLINIC COORDINATOR PCP - General 10/06/21 08/29/22 Compa Sam MD [address] [place] [phone] PCP - General Family Medicine 08/30/22 09/25/22 Debbie Middleton APRN-CLINIC COORDINATOR PCP - General 09/26/22 09/28/22 Debbie Middleton APRN-CLINIC COORDINATOR PCP - General 10/11/22 12/27/22 Compa Sam MD [address] [place] [address] PCP - General 12/28/22 Compa Sam MD [address] [place] [address] Family Medicine 09/29/22 Quintin Hope MD 1034 [facility] 12[address] [place] [address] Nephrology 04/10/24 documented as of this encounter
--- OUTSIDE RECORDS SUMMARY | 2025-02-14 10:38 | XMS_ITS | Encounter Summary ---
Author Organization [facility] Health Address [address] [facility] [place] [address] Care Team Providers Care Change Control Manager Name Role Phone Compa Sam MD Unavailable [phone] Compa Sam MD Primary Care Provider [phone] Quintin oHpe MD Unavailable [phone] Encounter Details Date Type Department Care Team (Late st Contact Info) Description 09/15/2023 Lab Requisition [facility] MAIN LAB [address] [place] [phone] Quintin Snow MD [facility]1 [facility] [place] [address] Social History Tobacco Use Types Packs/Day Years [...] on file 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 Blood BLOOD SPECIMEN / Unknown 09/08/2023 8:05 AM ADMINISTRATIVE PERSONAL ASSISTANT 09/15/2023 8:05 AM ADMINISTRATIVE PERSONAL ASSISTANT Quintin Snow MD LAB - BLOOD BANK ORDERABLES F inal Result [facility] ([facility]) [facility] [address] documented in this encounter Visit Diagnoses Not on filedocumented in this encounter Care Teams Change Control Manager Relationship Specialty Start Date End Date Compa Sam MD [address] [facility] [address] [place] [address] PCP - General 12/28/22 Compa Sam MD [address] [place] [address] Family Medicine 09/29/22 Quintin Hope MD 1034 [facility] [address] [place] [address] Nephrology 04/10/24 documented as of this encounter
--- OUTSIDE RECORDS SUMMARY | 2025-02-14 10:39 | XMS_ITS | Continuity of Care Document ---
Author Organization [facility] Address [address] [place] [id number] Phone Care Team Providers Care Merchant Banker Name Role Phone Bre BLAKELY, Leoncio Unavailable [...] Providers Copied on Encounter [facility], [address], [id number], tel:[phone] [facility] No Information 9 Shirley Fang. [address] [facility], [facility] [address], [place], [place], [id number], [place]. tel:[phone] Referring Provider: Vitaly Jacinto, [address] [place] [address] [address], [place], [place], [id number]. tel:[phone] [facility], [address], [id number], [place] tel:[phone] [facility] Chronic kidney disease, stage 4 (severe)Hyper tensive chronic kidney disease w stg 1-4/unsp chr kdnySecondary hyperparathyr oidism of renal originAnemia in chronic kidney disease 9 Shirley Fang. [address] [facility], [address], [place], [place], [id number], [place]. tel:[phone] Referring Provider: Vitaly Jacinto, [address], [place], [place], [id number]. tel:[phone] [facility], [address], [id number], [place] tel:[phone] [facility] No Information 9 Shirley Fang. [address] [facility], [address], [place], [id number], [place]. tel:[phone] Referring Provider: Vitaly Jacinto, [address], [place], [place], [id number]. tel:[phone] [facility], [address], [id number], [place] tel:[phone] [facility] [place] Chronic kidney disease, stage 4 (severe)Hyper tensive chronic kidney disease w stg 1-4/unsp chr kdnySecondary hyperparathyr oidism of renal originAnemia in chronic kidney disease 9 Shirley Fang. [address] [facility], [address], [id number], [place]. tel:[phone] Referring Provider: Vitaly Jacinto, [address], [place], [place], [id number]. tel:[phone] [facility], [address], [id number], [place] tel:[phone] [facility] [place] Chronic kidney disease, stage 4 (severe)Hyper tensive chronic kidney disease w stg 1-4/unsp chr kdnySecondary hyperparathyr oidism of renal originAnemia in chronic kidney disease 8 Shirley aFng. [address] [facility], [address], [place], [place], [id number], [place]. tel:[phone] Referring Provider: Vitaly Jacinto, [address], [place], [place], [id number]. tel:[phone] [facility], [address] [place] [address], [id number], [place] tel:[phone] [facility] [place] Chronic kidney disease, stage 4 (severe)Hyper tensive chronic kidney disease w stg 1-4/unsp chr kdnySecondary hyperparathyr oidism of renal originAnemia in chronic kidney disease 8 Shirley Fang. [address] [facility], [address], [place], [place], [id number], [place]. tel:[phone] Referring Provider: Vitaly Jacinto, [address], [place], [place], [id number]. tel:[phone] [facility], [address] [place] [address], [id number], [place] tel:[phone] [facility] [place] Chronic kidney disease, stage 4 (severe)Hyper tensive chronic kidney disease w stg 1-4/unsp chr kdnySecondary hyperparathyr oidism of renal originAnemia in chronic kidney disease 8 Shirley Fang. [address] [facility], [address], [place], [place], [id number], [place]. tel:[phone] Referring Provider: Vitaly Jacinto, [address], [place], [place], [id number]. tel:[phone] Office/outpat ient Visit, Est [facility], [address] [place] [address], [id number], [place] tel:[phone] [facility] [place] Chronic Kidney Disease (chief complaint) Hypertensi on (chief complaint) Chronic kidney disease, stage 4 (severe)Hyper tensive chronic kidney disease w stg 1-4/unsp chr kdnySecondary hyperparathyr oidism of renal originAnemia in chronic kidney disease 8 Shirley Fang. [address] [facility], [address], [place], [place], [id number], [place]. tel:[phone] Referring Provider: Vitaly Jacinto, [address] [facility] [address], [place], [place], [id number]. tel:[phone] [facility], [address] [place] [address], [id number], [place] tel:[phone] [facility] [place] Chronic kidney disease, stage 4 (severe)Hyper tensive chronic kidney disease w stg 1-4/unsp chr kdnySecondary hyperparathyr oidism of renal originAnemia in chronic kidney disease 8 Shirley Fang. [address] [facility], [address], [place], [place], [id number], [place]. tel:[phone] [facility], [address] [place] [address], [id number], [place] tel:[phone] [facility] [place] Chronic kidney disease, stage 4 (severe)Hyper tensive chronic kidney disease w stg 1-4/unsp chr kdnySecondary hyperparathyr oidism of renal originAnemia in chronic kidney disease 0 8 Shirley Fang. [address] [facility], [address], [place], [place], [id number], [place]. tel:[phone] [facility], [address], [place], [id number], [place] tel:[phone] [facility] [place] No Information Jun-3 8 Shirley Fang. [address] [facility], [address], [place], [place], [id number], [place]. tel:[phone] [facility], [address], [id number], [place] tel:[phone] [facility] [place] No Information 8 Shirley Fang. [address] [facility], [address], [place], [place], [id number], [place]. tel:[phone] Referring Provider: Vitaly Jacinto, [address], [place], [place], [id number]. tel:[phone] Office/outpat ient Visit, Est [facility], [address] [place] [address], [id number], [place] tel:[phone] [facility] [place] Chronic Kidney Disease (chief complaint) Hypertensi on (chief complaint) Chronic kidney disease, stage 4 (severe)Hyper tensive chronic kidney disease w stg 1-4/unsp chr kdnySecondary hyperparathyr oidism of renal originAnemia in chronic kidney disease 8 Shirley Fang. [address] [facility], [address], [place], [place], [id number], [place]. tel:[phone] Referring Provider: Vitaly Jacinto, [address], [place], [place], [id number]. tel:[phone] [facility], [address], [id number], [place] tel:[phone] [facility] No Information 8 Shirley Fang. [address] [facility], [address], [place], [place], [id number], [place]. tel:[phone] Referring Provider: Vitaly Jacinto, [address], [place], [place], [id number]. tel:[phone] Office/outpat ient Visit, Est [facility], [address] [place] [address], [id number], [place] tel:[phone] [facility] [place] Chronic Kidney Disease (chief complaint) Hypertensi on (chief complaint) Chronic kidney disease, stage 4 (severe)Hyper tensive chronic kidney disease w stg 1-4/unsp chr kdnySecondary hyperparathyr oidism of renal originAnemia in chronic kidney disease Adriel-0 8 Shirley Fang. [address] [facility], [address], [place], [place], [id number], [place]. tel:[phone] Referring Provider: Vitaly Jacinto, [address], [place], [place], [id number]. tel:[phone] [facility], [address], [id number], [place] tel:[phone] [facility] [place] Chronic kidney disease, stage 4 (severe)Hyper tensive chronic kidney disease w stg 1-4/unsp chr kdnySecondary hyperparathyr oidism of renal originAnemia in chronic kidney disease 8 Shirley Fang. [address] [facility], [address], [place], [place], [id number], [place]. tel:[phone] Referring Provider: Vitaly Jacinto, [address], [place], [place], [id number]. tel:[phone] Office/outpat ient Visit, [facility], [address], [id number], [place] tel:[phone] [facility] [place] Chronic Kidney Disease (chief complaint) Chronic kidney disease, stage 4 (severe)Hyper tensive chronic kidney disease w stg 1-4/unsp chr kdnySecondary hyperparathyr oidism of renal originAnemia in chronic kidney disease Nov-0 8 Shirley Fang. [address] [facility], [address], [place], [place], [id number], [place]. tel:[phone] Referring Provider: Vitaly Jacinto, [address], [place], [place], [id number]. tel:[phone] [facility], [address], [id number], [place] tel:[phone] [facility] [place] No Information 8 Shirley Fang. [address] [facility], [address], [place], [place], [id number], . tel:[phone] Office/outpat ient Visit, [facility], [address] [place] [address], [id number], [place] tel:[phone] [facility] [place] Chronic Kidney Disease (chief complaint) Chronic kidney disease, stage 4 (severe)Hyper tensive chronic kidney disease w stg 1-4/unsp chr kdnySecondary hyperparathyr oidism of renal originAnemia in chronic kidney disease 7 Shirley Fang. [address] [facility], [address], [place], [place], [id number], [place]. tel:[phone] Referring Provider: Vitaly Jacinto, [address], [place], [place], [id number]. tel:[phone] Office/outpat ient Visit, [facility], [address] [place] [address], [id number], tel:[phone] [facility] [place] Chronic Kidney Disease (chief complaint) Chronic kidney disease, stage 4 (severe)Hyper tensive chronic kidney disease w stg 1-4/unsp chr kdnySecondary hyperparathyr oidism of renal originAnemia in chronic kidney disease Sep- 7 Shirley Fang. [address] [facility], [address], [place], [place], [id number], [place]. tel:[phone] Referring Provider: Vitaly Jacinto, [address], [place], [place], [id number]. tel:[phone] Office/outpat ient Visit, [facility], [address] [place] [address], [id number], [place] tel:[phone] [facility] [place] Chronic Kidney Disease (chief complaint) Chronic kidney disease, stage 4 (severe) 7 Shirley Fang. [address] [facility], [address], [place], [place], [id number], [place]. tel:[phone] Referring Provider: Vitaly Jacinto, [address], [place], [place], [id number]. tel:[phone] [facility], [address], [id number], [place] tel:[phone] [facility] [place] Chronic kidney disease, stage 3 (moderate)Ess ential (primary) hypertension 7 Shirley Fang. [address] [facility], [address], [place], [place], [id number], [place]. tel:[phone] Referring Provider: Vitaly Jacinto, [address], [place], [place], [id number]. tel:[phone] Office/outpat ient Visit, [facility], [address] [place] [address], [id number], [place] tel:[phone] [facility] [place] Chronic Kidney Disease (chief complaint) Chronic kidney disease, stage 3 (moderate)Ess ential (primary) hypertension 7 Shirley Fang. [address] [facility], [address], [place], [place], [id number], [place]. tel:[phone] Referring Provider: Vitaly Jacinto, [address], [place], [place], [id number]. tel:[phone] [facility], [address] [place] [address], [id number], [place] tel:[phone] [facility] Acute kidney failure, unspecifiedAn emia, unspecifiedAc eklutna tubulo-inters titial nephritisEsse ntial (primary) hypertension May-0 2-201 7 Swapnil Sumner. [address] [place], [place], [id number], [place]. [phone] Referring Provider: Vera Deshpande, [address] [place], [address]. tel:[phone] Subsequent Hospital Care [facility], [address] [place] [address], [id number], [place] tel:[phone] [facility] Acute kidney failure, unspecifiedEs sential (primary) hypertensionA nemia, unspecifiedAc eklutna tubulo-inters titial nephritis May-0 2-201 7 Fahad Amaya. [address] [facility], [facility], [place], [place], [id number], [place]. tel:[phone] Referring Provider: Vera Deshpande, [address] [place], [address]. tel:[phone] Initial Inpatient Consult [facility], [address] [place] [address], [id number], [place] tel:[phone] [place] [address] Acute kidney failure, unspecifiedAn emia, unspecifiedAc eklutna tubulo-inters titial nephritisEsse ntial (primary) hypertension May-0 2-201 7 Fahad Amaya. [address] [facility], [address], [place], [place], [id number], [place]. tel:[phone] Referring Provider: Vera Deshpande, [address] [place], [address]. tel:[phone] Subsequent Hospital Care [facility], [address] [place] [address], [id number], [place] tel:[phone] [facility] Acute kidney failure, unspecifiedAn emia, unspecifiedAc eklutna tubulo-inters titial nephritisEsse ntial (primary) hypertension May-0 2-201 7 Fahad Amaya. [address] [facility], [address], [place], [place], [id number], [place]. tel:[phone] Referring Provider: Vera Deshpande, [address] [facility], [place], [address]. tel:[phone] Office/outpat ient Visit, [facility], [address] [place], [place], [id number], [place] tel:[phone] [facility] [place] Chronic kidney disease, stage 3 (moderate)Ess ential (primary) hypertension Apr- 7 Shirley Fang. [address] [facility], [address], [place], [place], [id number], [place]. tel:[phone] Referring Provider: Vitaly Jacinto, [address] [facility] [address], [place], [place], [id number]. tel:[phone] Subsequent [facility], [address] [place], [place], [id number], [place] tel:[phone] [facility] Acute kidney failure, unspecifiedCh ronic kidney disease, stage 3 (moderate)Acq uired absence of kidneyUrinary tract infection, site not specified Apr-0 7 Bandar Brooks. [address] [facility], [address], [place], [place], [id number], [place]. tel:[phone] Referring Provider: Kimmy Rhodes, [address] [place], [address]. tel:[phone] Subsequent [facility], [address] [place], [place], [id number], [place] tel:[phone] [facility] Acute kidney failure, unspecifiedCh ronic kidney disease, stage 3 (moderate)Ane neva, unspecified Apr-0 7 Jonathan Mckeon. [address] [facility], [address], [place], [place], [id number], [place]. tel:[phone] Referring Provider: Kimmy Rhodes, [address] [place], [address]. tel:[phone] Subsequent Hospital Care [facility], [address] [place] [address], [id number], [place] tel:[phone] [place] [address] Acute kidney failure, unspecifiedCh ronic kidney disease, stage 3 (moderate) Apr-0 7 Andrzej Heredia. [address] [facility], [address], [place], [place], [id number], [place]. tel:[phone] Referring Provider: Kimmy Rhodes, [address] [place] [address], [address]. tel:[phone] Initial Inpatient Consult [facility], [address] [place] [address], [id number], [place] tel:[phone] [place] [address] Acute kidney failure, unspecifiedCh ronic kidney disease, stage 3 (moderate)Acq uired absence of kidneyUrinary tract infection, site not specified Apr-0 7 Shirley Fang. [address] [facility], [address], [place], [place], [id number], [place]. tel:[phone] Referring Provider: Kimmy Rhodes, [address] [place], [address]. tel:[phone] Subsequent Hospital Care [facility], [address] [place] [address], [id number], [place] tel:[phone] [facility] Acute kidney failure, unspecifiedCh ronic kidney disease, stage 3 (moderate)Ane neva, unspecified Apr-0 7 Jonathan Mckeon. [address] [facility], [address], [place], [place], [id number], [place]. tel:[phone] Referring Provider: Kimmy Rhodes, [address] [place], [address]. tel:[phone] Subsequent Hospital [facility], [address] [place] [address], [place], [place], [id number], [place] tel:[phone] [facility] Acute kidney failure, unspecifiedCh ronic kidney disease, stage 3 (moderate)Acq uired absence of kidneyUrinary tract infection, site not specified Apr-0 7 Fahad Amaya. [address] [facility], [address], [place], [place], [id number], [place]. tel:[phone] Referring Provider: Kimmy Rhodes, [address] [place], [address]. tel:[phone] Subsequent [facility], [address] [place] [address], [id number], [place] tel:[phone] [facility] Acute kidney failure, unspecifiedCh ronic kidney disease, stage 3 (moderate)Ane neva, unspecified Apr-0 7 Jonathan Mckeon. [address]36 [facility], [address], [place], [place], [id number], [place]. [phone] Referring Provider: Kimmy Rhodes, [facility] [place], [address]. tel:[phone] [facility], [address] [place] [address], [id number], [place] tel:[phone] [facility] Acute kidney failure, unspecifiedCh ronic kidney disease, stage 3 (moderate)Acq uired absence of kidneyUrinary tract infection, site not specified Apr-0 7 Jonathan Mckeon. [address] [facility], [address], [place], [place], [id number], [place]. tel:[phone] Referring Provider: Kimmy Rhodes, [address] [place], [address]. tel:[phone] Office/outpat ient Visit, [facility], [address], [place], [id number], [place] tel:[phone] [facility] [place] Stage 3 CKDEssential (primary) hypertension May- 6 Shirley Fang. [address] [facility], [address], [place], [place], [id number], [place]. tel:[phone] Office Consultation [facility], [address] [place] [address], [id number], [place] tel:[phone] [facility] [place] Chronic Kidney Disease (chief complaint) Stage 3 CKD 6 Shirley Fang. [address] [facility], [address], [place], [place], [id number], [place]. tel:[phone] Referring Provider: Vitaly Jacinto, [address] [place] [address] [address], [place], [place], [id number]. tel:[phone] [facility], [address], [id number], [place] tel:[phone] Hypercalcemia Hyperlipidemi a UnspecifiedHy perparathyroi dism, UnspecHyperte nsion,UnspIns omniaChronic Kidney Disease-Stage 3Hyperparathy roidism, PrimaryOth Dsrd Bn/cartEdemaH ypertension/B enign 1 Terry Guzman. [address] [facility], [address], [place], [place], [id number], [place]. tel:[phone] Office/outpat ient Visit, [facility], [address] [place] [address], [id number], [place] tel:[phone] [facility] [place] No Information 1 Terry Guzman. [address] [facility], [address], [place], [place], [id number], [place]. tel:[phone] Family History Family Member Type Diagnosis Age [...] Provider Payers Payer name Insurance type Covered green party ID Amy head(january Braba [facility] CI [id number] Social History Type Description Quantity Date Captured [...] Comorbid conditi ons include: chronic kidney disease. Hypertension Comorbid conditi ons include: chronic kidney disease. Chronic Kidney Disease The patie nt's disease began gradually. The severity of symptoms due to the patient's CKD is currently rated severe/10 (10=most severe). The patient's CKD is currently stable. Relevant disease context/risk factors include: hypertension, NSAID use and obesity. There are no pertinent negative symptoms. Chronic Kidney Disease The patie nt's disease [...] pertinent negative symptoms. Chronic Kidney Disease The patie nt's disease [...] symptoms. Instructions Date Instruction Additional Infor noemy Anemia education Related to Fisheries Diver joey kidney disease, stage 4 (severe) Kidney [...] Sodium Diet Related to Stage 3 CKD Kidney Disease Related to Stage 3 CKD Assessments Type Assessment Date No Information
--- OUTSIDE RECORDS SUMMARY | 2025-02-14 10:39 | XMS_ITS | Encounter Summary ---
Author Organization [facility] Address [address] [facility] [place] [address] Care Team Providers Care Fingerer Name Role Phone Compa Sam MD Unavailable [phone] Compa Sam MD Primary Care Provider [phone] Quintin Hope MD Unavailable [phone] Reason for Visit * Reason Onset Date Comments MEDICATION REFILL 12/22/2023 Encounter Details Date Type Department Care Team (Late st Contact Info) Description 12/22/2023 Refill [facility] - Nephrology [address] [place] [address], [facility] [place] [address] Reva Edmond MD [address] [place] [address] [facility] [address] MEDICATION REFILL Social History Tobacco Use Types [...] on file 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
--- OUTSIDE RECORDS SUMMARY | 2025-02-14 10:39 | XMS_ITS | Referral Summary ---
Author Organization [facility] [place] [address] Address [facility]2 [place] [address] Care Team Providers Care Sample Tester Grinder Name Role Phone Compa Sam MD Primary Care Provider [phone] Encounters Date Type Department Care Team Description 02/13/2025 Orders Only [facility] [address] [address] ProviderAurora MD 02/13/2025 1:15 PM CDT Office Visit [facility] [address] [address] Letitia Astorga PA Type 2 diabetes mellitus with hyperglycemia, without long-term current use of insulin (HCC) (Primary Dx); Essential hypertension 02/06/2025 Telephone [facility] [address] [address] Letitia Astorga PA 12/26/2024 Telephone [facility] [address] [address] Denia Hills LPN 11/28/2024 Telephone [place] [employer] Programs Director at [address] [phone] Susy Camarillo MA 11/21/2024 1:07 PM CARDIOVASCULAR SONOGRAPHER - 11/21/2024 11:59 PM CARDIOVASCULAR SONOGRAPHER Hospital Encounter [facility] Cardiology [address] [place] [address] Palpitations Discharge Disposition: Discharge to home or self care 11/21/2024 1:07 PM CARDIOVASCULAR SONOGRAPHER - 11/21/2024 11:59 PM CARDIOVASCULAR SONOGRAPHER Hospital Encounter [facility] Cardiology [address] [place] [address] Dilated cardiomyopathy (HCC) Discharge Disposition: Discharge to home or self care from Last 3 Months Allergies Active Allergy [...] EXIT SITE ONCE DAILY 01/01/20 24 Active doxazosin (CARDURA) 4 mg tablet Take [...] without long-term current use of insulin ([facility]) Change sensor every 15 days Dx: E11.65 [...] directed 100 each 11 12/27/19 25 Active insulin glargine (LANTUS) 100 unit/mL (3 mL) pen for injection Inject 8 units once daily when you have steroid injections 15 mL 02/14/20 25 Active NIFEdipine (NIFEdipine XL) 30 mg 24 hr tablet Take 2 tablets (60 mg total) by mouth 2 (two) times a day 025 Discontin ued(Patie nt Reported) traZODone (DESYREL) 50 mg tablet TAKE 3 TABLETS BY MOUTH AT BEDTIME FOR INSOMNIA 025 Discontin ued(Patie nt Reported) Active Problems Problem Noted Date Diagnosed Date Essential hypertension 02/13/2025 Assessment & Plan (02/13/2025 2:15 PM CDT): Chronic problem, not at goal. She just had her BP meds adjusted today by nephrology. No changes at this time. ESRD (end stage renal disease) on dialysis 02/13 Type 2 diabetes mellitus wit h hyperglycemia, without long-term current use of insulin 03/18/2024 Assessment & Plan (02/13/2025 2:17 PM CDT): Chronic problem, not at goal. Unable to [...] overnight readings are stable around 200 or below no matter type of overnight dialysate she uses. Gave her Lantus to use only for couple days around steroid injection, take 8 units once daily. Can stop it once sugars return to normal. Lower HL scale to 4 units, >200 take 6, >300 take 8 units. Reviewed avoiding hypoglycemia given ESRD. Request eye exam today. Assessment & Plan (03/18/2024 4:26 PM CDT): Chronic, stable Importance of diet and exercise was re-emphasized Continue Januvia 25 mg daily Continue CGM with freestyle Rubia 3 Social History Tobacco Use Types [...] Pulse 100 02/13/2025 1:26 PM CDT Temperature 36.9 C (98.4 F) 08/08/2022 6:56 PM CARDIOVASCULAR SONOGRAPHER Respiratory Rate 18 02/13/2025 1:26 PM CDT Oxygen Saturation 98% 08/08/2022 6:56 PM CARDIOVASCULAR SONOGRAPHER Inhaled Oxygen Concentration - - Weight 80.5 kg (177 lb 6.4 oz) 02/13/2025 1:26 P M CDT Height 162.6 cm (5' 4) 02/13/2025 1:26 PM CDT Body Mass Index 30.45 02/13/2025 1:26 PM CDT Plan of Treatment Not on file Procedures Procedure Name Priority Date/Time Associated Diagnosis Comments POCT GLUCOSE Routine 02/13/2025 1:29 PM CDT Type 2 diabetes mellitus with hyperglycemia, without long-term current use of insulin (HCC) POCT HEMOGLOBIN A1C Routine 02/13/2025 1 :29 PM CDT Type 2 diabetes mellitus with hyperglycemia, without long-term current use of insulin (HCC) HM CREATININE Routine 12/24/2024 4:08 PM CDT TRANSTHORACIC ECHO (TTE) LIMITED/FOLLOW UP WO DOPPLER/CF WO CONTRAST Routine 11/21/2024 1:55 PM CARDIOVASCULAR SONOGRAPHER Dilated cardiomyopathy (HCC) MCT - MOBILE CARDIAC TELEMETRY EVENT MONITOR Routine 11/21/2024 1:08 PM CARDIOVASCULAR SONOGRAPHER Palpitations from Last 3 Months Results * (ABNORMAL) POCT hemoglobin A1c (02/13/2025 1:29 PM CDT) Hemoglobin A1C, POC 7.6(A) 4.0 - 5.6 % Capillary blood 02/13/2025 1 :29 PM CDT Letitia COLÓN POINT OF CARE TEST ORDE RABLES Final Result * (ABNORMAL) POCT glucose (02/13/2025 1:29 PM CDT) Pathologist [facility] Glucose Blood, POC 260 Normal Fasting 70 - 100, Random <200 mg/dL Comment:PPG 2 Hrs Blood 02/13/2025 1:29 PM CDT Letitia COLÓN POINT OF CARE TEST ORDE RABLES Final Result * (ABNORMAL) HM CREATININE (12/24/2024 4:08 PM CDT) Pathologist [facility] SCRIBED Creatinine 8.5(A) 0.56 - 0.96 mg/dl EXTERNAL LAB SCRIBED eGFR in 5(A) >=90 EXTERNAL LAB SCRIBED eGFR in NonAfrican Singaporean 5(A) >=90 EXTERNAL LAB Historical Provider HEALTH MAINTENANCE Edited Result - Final EXTERNAL LAB * TRANSTHORACIC ECHO (TTE) LIMITED/FOLLOW UP WO DOPPLER/CF WO CONTRAST (11/21/2024 1:55 PM CARDIOVASCULAR SONOGRAPHER) Anatomical Region Laterality Modality Ultrasound 11/21/2024 1:34 PM CARDIOVASCULAR SONOGRAPHER Narrative 11/21/2024 4:37 PM CARDIOVASCULAR SONOGRAPHER [address] [address] Limited Echocardiogram Report Patient Name: BRANDY SMITH [...] By: Aren Smith MD 11/21/2024 4:37:36 PM CARDIOVASCULAR SONOGRAPHER Procedure Note Aren Smith MD - 11/21/[address] [address] Limited Echocardiogram Report Patient Name: BRANDY SMITH [...] By: Aren Smith MD 11/21/2024 4:37:36 PM CARDIOVASCULAR SONOGRAPHER Lakshmi Saul MD CV ECHO PROCEDURES Final Re sult * MCT Mobile Cardiac Telemetry Event Monitor (11/21/2024 1:08 PM CARDIOVASCULAR SONOGRAPHER) Anatomical Region Laterality Modality Electrocardiogra phy 12/20/2024 11:5 9 PM CDT Narrative 12/28/2024 3:18 PM CDT [address] [address] EVENT MONITOR Patient Name: BRANDY SMITH G [...] demonstrated. Electronically Signed By: Vishal Pittman MD, [facility] 2024-12-29 4:16:59 PM CDT Procedure Note Lakshmi Saul MD / Vishal Pittman MD - 12/30/[address] [address] EVENT MONITOR Patient Name: BRANDY SMITH G [...] demonstrated. Electronically Signed By: Vishal Pittman MD, [facility] 2024-12-29 4:16:59 PM CDT Lakshmi Saul MD CV CARDIAC SERVICES PROCEDU RES Edited from Last 3 Months Insurance MEDICARE [facility] Care Teams Sample Tester Grinder Relationship Specialty Start Date End Date Compa Sam MD [address] [place] [address] PCP - General Family Medicine 12/04/23
--- OUTSIDE RECORDS SUMMARY | 2025-02-14 10:39 | XMS_ITS | Encounter Summary ---
Author Organization [facility] Health Address [address] [place] [address] Care Team Providers Care Clerical Associate Name Role Phone Compa Sam MD Unavailable [phone] Compa Sam MD Primary Care Provider [phone] Quintin Hope MD Unavailable [phone] Reason for Visit * Reason Comments Refill Request Encounter Details Date Type Department Care Team (Late st Contact Info) Description 05/25/2023 Refill [facility] - Nephrology [address] [place] [address], [place] [phone] Reva Edmond MD [address] [place] [address] [facility] [place], [place] [id number] Refill Request Social History Tobacco Use Types [...] on file 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
--- OUTSIDE RECORDS SUMMARY | 2025-02-14 10:39 | XMS_ITS | Encounter Summary ---
Author Organization [facility] Health Address [address] [facility] [place] [address] Care Team Providers Care Carpenter Prototype Name Role Phone Compa Sam MD Unavailable [phone] Compa Sam MD Primary Care Provider [phone] Quintin Hope MD Unavailable [phone] Encounter Details Date Type Department Care Team (Late st Contact Info) Description 11/05/2024 Lab Requisition [facility] MAIN LAB [address] [place] [phone] Quintin Snow MD 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 Blood BLOOD SPECIMEN / Unknown 10/31/2024 2:54 PM HEALTH CLUB MANAGER 11/05/2024 2:54 PM HEALTH CLUB MANAGER Quintin Snow MD LAB - BLOOD BANK ORDERABLES F inal Result [facility] ([facility]) [address] [place] [address], [facility] documented in this encounter Visit Diagnoses Not on filedocumented in this encounter Care Teams Carpenter Prototype Relationship Specialty Start Date End Date Compa Sam MD [address] [place] [address] PCP - General 12/28/22 Compa Sam MD [address] [place] [address] Family Medicine 09/29/22 Quintin Hope MD [address] [facility] [address] [place] [address] Nephrology 04/10/24 documented as of this encounter
--- OUTSIDE RECORDS SUMMARY | 2025-02-14 10:39 | XMS_ITS | Encounter Summary ---
Author Organization [facility] Health Address [address] [facility] [place] [address] Care Team Providers Care Career Transition Specialist Name Role Phone Compa Sam MD Unavailable [phone] Compa Sam MD Primary Care Provider [phone] Quintin Hope MD Unavailable [phone] Encounter Details Date Type Department Care Team (Late st Contact Info) Description 10/18/2024 Lab Requisition [facility] MAIN LAB [address] [place] [phone] Quintin Snow MD 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 Blood BLOOD SPECIMEN / Unknown 10/10/2024 1:38 PM HYPERBARIC WELDER DIVER 10/18/2024 1:38 PM HYPERBARIC WELDER DIVER Quintin Snow MD LAB - BLOOD BANK ORDERABLES F inal Result [facility] ([facility]) [address] [place] [address], [facility] documented in this encounter Visit Diagnoses Not on filedocumented in this encounter Care Teams Career Transition Specialist Relationship Specialty Start Date End Date Compa Sam MD [address] [place] [address] PCP - General 12/28/22 Compa Sam MD [address] [place] [address] Family Medicine 09/29/22 Quintin Hope MD [address] [facility] [address] [place] [address] Nephrology 04/10/24 documented as of this encounter
--- OUTSIDE RECORDS SUMMARY | 2025-02-14 10:39 | XMS_ITS | Clinical Summary ---
Author Organization [facility] [address] [place] [address] Care Team Providers Care Blocking Machine Operator Second Name Role Phone Compa Sam MD Primary Care Provider [phone] Allergies Active Allergy Reactions Criticality Noted Date [...] without long-term current use of insulin (HCC) Change sensor every 15 days Dx: E11.65 [...] 1-4 times daily as directed 100 each 12/27/19 25 Active insulin glargine (LANTUS) 100 [...] Date Type Department Care Team Description 02/13/2025 1:15 PM CDT Office Visit [facility] [address] [address] Letitia Astorga PA Type 2 diabetes mellitus with hyperglycemia, without long-term current use of insulin (HCC) (Primary Dx); Essential hypertension 02/13/2025 Orders Only [facility] [address] [phone] ProviderAurora MD 02/06/2025 Telephone [facility] [address] [address] Letitia Astorga PA 12/26/2024 Telephone [facility] of [address] [address] Denia Hills LPN 11/28/2024 Telephone [employer] at [address] [phone] Susy Camarillo MA 11/21/2024 1:07 PM JEWEL SETTER - 11/21/2024 11:59 PM JEWEL SETTER Hospital Encounter [facility] Cardiology [address] [place] [address] Palpitations Discharge Disposition: Discharge to home or self care 11/21/2024 1:07 PM JEWEL SETTER - 11/21/2024 11:59 PM JEWEL SETTER Hospital Encounter [facility] Cardiology [address] [place] [address] Dilated cardiomyopathy (HCC) Discharge Disposition: Discharge to home or self care from Last 3 Months Social History Tobacco [...] 36.9 C (98.4 F) 08/08/2022 6:56 PM JEWEL SETTER Respiratory Rate 18 02/13/2025 1:26 PM CDT Oxygen Saturation 98% 08/08/2022 6:56 PM JEWEL SETTER Inhaled Oxygen Concentration - - Weight 80.5 kg (177 lb 6.4 oz) 02/13/2025 1:26 P M CDT Height 162.6 cm (5' 4) 02/13/2025 1:26 PM CDT Body Mass Index 30.45 02/13/2025 1:26 PM CDT Plan of Treatment Health Maintenance Due Date Last Done Comments Breast Cancer Screening-Mammogram 1959 Colon Cancer Screening-Colonoscopy 1960 Depression Screening 1959 Fall Risk Assessment 1959 Hepatitis C Screening 1960 Dilated Eye Exam 1959 Hepatitis B Screening 1977 Osteoporosis Screening-Bone Density Scan 02/03/2024 02/02/2022, 02/02/2022 Well Visit 65+ 02/10/2024 Covid-19 Vaccine (2023-10 5 season) 2024 06/26/2023, 03/06/2023, 06/23/2022, Additional history exists Influenza Vaccine (Season Ended) 2025 06/09/2023, 06/23/2022, 07/16/2021, Additional history exists Hemoglobin A1C 08/16/2025 02/13/2025, 04/0 09/2024, 03/18/2024, Additional history exists Lipid Panel 12/24/2025 12/24/2024, 03/2 04/2024, 04/10/2023, Additional history exists eGFR 12/24/2025 12/24/2024 Foot Exam 02/13/2026 02/13/2025 Pneumococcal vaccine 65+ (3 of 3 - PPSV23, PCV20 or PCV21) 12/14/2026 12/14/2021, 09/21/2021 DTaP/Tdap/Td Vaccine (2 - Td or Tdap) 02/25/2032 02/24/2022 Zoster Vaccine Completed 06/30/2022, 04/01/2022 Albumin Creatinine Ratio, Urine Discontinued Procedures Procedure Name Priority Date/Time Associated Diagnosis [...] DOPPLER/CF WO CONTRAST Routine 11/21/2024 1:55 PM JEWEL SETTER Dilated cardiomyopathy (HCC) MCT - MOBILE CARDIAC TELEMETRY EVENT MONITOR Routine 11/21/2024 1:08 PM JEWEL SETTER Palpitations from Last 3 Months Results * (ABNORMAL) POCT hemoglobin A1c (02/13/2025 1:29 PM CDT) Pathologist [facility] Hemoglobin A1C, POC 7.6(A) 4.0 - 5.6 % Capillary blood 02/13/2025 1 :29 PM CDT Letitia COLÓN POINT OF CARE TEST FARIBA DON Final Result * (ABNORMAL) POCT glucose (02/13/2025 1:29 PM CDT) Pathologist [facility] Glucose Blood, POC 260 Normal Fasting 70 - 100, Random <200 mg/dL Comment:PPG 2 Hrs Blood 02/13/2025 1:29 PM CDT Letitia COLÓN POINT OF CARE TEST FARIBA DON Final Result * (ABNORMAL) HM CREATININE (12/24/2024 4:08 PM CDT) SCRIBED Creatinine 8.5(A) 0.56 - 0.96 mg/dl EXTERNAL LAB SCRIBED eGFR in 5(A) >=90 EXTERNAL LAB SCRIBED eGFR in NonAfrican Turkish 5(A) >=90 EXTERNAL LAB Historical Provider HEALTH MAINTENANCE Edited Result - Final EXTERNAL LAB * TRANSTHORACIC ECHO (TTE) LIMITED/FOLLOW UP WO DOPPLER/CF WO CONTRAST (11/21/2024 1:55 PM JEWEL SETTER) Anatomical Region Laterality Modality Ultrasound 11/21/2024 1:34 PM JEWEL SETTER Narrative 11/21/2024 4:37 PM JEWEL SETTER [address] [address] Limited Echocardiogram Report Patient Name: BRANDY SMITH [...] By: Aren Smith MD 11/21/2024 4:37:36 PM JEWEL SETTER Procedure Note Aren Smith MD - 11/21/[address] [place] [address] Limited Echocardiogram Report Patient Name: BRANDY SMITH : 1960 Study Date: 11/21/2024 1:34:08 PM Gender: F Tech: Location: echo room 1 Ref Provider: LAKSHMI [...] By: Aren Smith MD 11/21/2024 4:37:36 PM JEWEL SETTER Lakshmi Saul MD CV ECHO PROCEDURES Final Re sult * MCT Mobile Cardiac Telemetry Event Monitor (11/21/2024 1:08 PM JEWEL SETTER) Anatomical Region Laterality Modality Electrocardiogra phy 12/20/2024 11:5 9 PM CDT Narrative 12/28/2024 3:18 PM CDT [address] [address] EVENT MONITOR Patient Name: BRANDY SMITH G [...] demonstrated. Electronically Signed By: Vishal Pittman MD, [facility] 2024-12-29 4:16:59 PM CDT Procedure Note Lakshmi Saul MD / Vishal Pittman MD - 12/30/[address] [address] EVENT MONITOR Patient Name: BARNDY SMITH G : 1960 Study Date: 2024-12-20 [...] demonstrated. Electronically Signed By: Vishal Pittman MD, [facility] 2024-12-29 4:16:59 PM CDT Lakshmi Saul MD CV CARDIAC SERVICES PROCEDU RES Edited from Last 3 Months Insurance MEDICARE [address] [place] [id number] MEDICARE [facility] Care Teams Blocking Machine Operator Second Relationship Specialty Start Date End Date Compa Sam MD [address] [place] [address] PCP - General Family Medicine 12/04/23
--- OUTSIDE RECORDS SUMMARY | 2025-02-14 10:39 | XMS_ITS | Encounter Summary ---
Author Organization [facility] Health Address [address] [facility] [address] Care Team Providers Care Planner Chief Name Role Phone Compa Sam MD Unavailable [phone] Compa Sam MD Primary Care Provider [phone] Quintin Hope MD Unavailable [phone] Encounter Details Date Type Department Care Team (Late st Contact Info) Description 02/06/2024 Lab Requisition [facility] MAIN LAB [address] [place] [phone] Quintin Snow MD [facility]1 [facility] [place] [address] Social History Tobacco Use Types Packs/Day Years [...] on file 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 Blood BLOOD SPECIMEN / Unknown 01/25/2024 1:43 PM CDT 02/06/2024 1:43 PM CDT Quintin Snow MD LAB - BLOOD BANK ORDERABLES F inal Result [facility] ([facility]) [address] documented in this encounter Visit Diagnoses Not on filedocumented in this encounter Care Teams Planner Chief Relationship Specialty Start Date End Date Compa Sam MD [address] [place] [address] PCP - General 12/28/22 Compa Sam MD [address] [place] [address] Family Medicine 09/29/22 Quintin Hope MD 10[address] [facility] [address] [place] [address] Nephrology 04/10/24 documented as of this encounter
--- OUTSIDE RECORDS SUMMARY | 2025-02-14 11:40 | XMS_ITS | Encounter Summary ---
Author Organization [facility] Health Address [address] [facility] [place] [address] Care Team Providers Care Quality Control Microbiologist Name Role Phone Cmopa Sam MD Unavailable [phone] Compa Sam MD Primary Care Provider [phone] Quintin Hope MD Unavailable [phone] Encounter Details Date Type Department Care Team (Late st Contact Info) Description 09/15/2023 Lab Requisition [facility] MA[facility] LAB [address] [place] [phone] Quintin Snow MD [facility]1 [facility] [place] [address] Social History Tobacco Use Types Packs/Day Years [...] on file 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 Blood BLOOD SPECIMEN / Unknown 09/08/2023 8:05 AM FLOWER ARRANGER 09/15/2023 8:05 AM FLOWER ARRANGER Quintin Snow MD LAB - BLOOD BANK ORDERABLES F inal Result [facility] ([facility]) [facility] documented in this encounter Visit Diagnoses Not on filedocumented in this encounter Care Teams Quality Control Microbiologist Relationship Specialty Start Date End Date Compa Sam MD [address] [facility] [address] [place] [address] PCP - General 12/28/22 Compa Sam MD [address] [place] [address] Family Medicine 09/29/22 Quintin Hope MD 1034 [facility] [address] [place] [address] Nephrology 04/10/24 documented as of this encounter
--- OUTSIDE RECORDS SUMMARY | 2025-02-14 11:40 | XMS_ITS | Encounter Summary ---
Author Organization [facility] Address [address] [facility] [place] [address] Care Team Providers Care Stock Preparation Operator Name Role Phone Compa Sam MD Unavailable [phone] Compa Sam MD Primary Care Provider [phone] Quintin Hope MD Unavailable [phone] Reason for Visit * Reason Onset Date Comments MEDICATION REFILL 12/22/2023 Encounter Details Date Type Department Care Team (Late st Contact Info) Description 12/22/2023 Refill [facility] - Nephrology [address] [place] [address], [facility] [place] [address] Reva Edmond MD [address] [place] [address] [facility] [place] [address] MEDICATION REFILL Social History Tobacco Use Types [...] on file 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
--- OUTSIDE RECORDS SUMMARY | 2025-02-14 11:40 | XMS_ITS | Encounter Summary ---
Author Organization [facility] Health Address [address] [place] [address] Care Team Providers Care Quality Director Name Role Phone Meryl Lacy Primary Care Provider [phone] Debbie Middleton Primary Care Provider [phone] Compa Sam MD Primary Care Provider + [phone] Debbie Middleton Primary Care Provider +[phone] Compa Sam MD Unavailable [phone] Debbie Middleton Primary Care Provider +[phone] Compa Sam MD Primary Care Provider + [phone] Quintin Hope MD Unavailable [phone] Encounter Details Date Type Department Care Team (Late st Contact Info) Description 01/21/2021 [facility] Outpatient Visit [facility] [address] [place] [address] Estee Lindsey, HEAD PACKAGER-SHORT STORY WRITER [address] [place] [address] Social History Tobacco Use Types Packs/Day Years Used Date Smoking Tobacco: Never Comments Unknown Sex and Gender Information Value Date Recorded Sex Assigned at Not on file Legal Sex Female 8:35 AM CERTIFIED NEURODIAGNOSTIC TECHNOLOGIST Gender Identity Not on file Sexual Orientation [...] documented as of this encounter Care Teams Quality Director Relationship Specialty Start Date End Date Meryl Lacy DO [address] [place] [address] PCP - General 03/25/21 10/05/21 Debbie Middleton APRN-CNP [address] [place] [address] PCP - General 10/06/21 08/29/22 Compa Sam MD [address] [facility] [address] [address] PCP - General Family Medicine 08/30/22 09/25/22 Debbie Middleton APRN-CNP [address] [place] [address] PCP - General 09/26/22 09/28/22 Debbie Mdidleton APRN-CNP [address] [place] [address] PCP - General 10/11/22 12/27/22 Compa Sam MD [address] [place], [place] [address] PCP - General 12/28/22 Compa Sam MD 6812 [facility] [address] [place] [address] Family Medicine 09/29/22 Quintin Hope MD 1034 [facility] [address] [place] [address] Nephrology 04/10/24 documented as of this encounter
--- OUTSIDE RECORDS SUMMARY | 2025-02-14 11:40 | XMS_ITS | Clinical Summary ---
Author Organization [facility] Address [address] [place] [address] Phone Care Team Providers Care Project Management Consultant Name Role Phone Unavailable Primary Care Provider Unavailabl e Social History Tobacco Use Types Packs/Day Years Used Date Smoking Tobacco: Never Assessed Comments Unknown Sex and Gender Information Value Date Recorded Sex Assigned at Not on file Legal Sex Female 2:30 PM POLICY WRITER TYPIST Gender Identity Not on file Sexual Orientation [...]
--- OUTSIDE RECORDS SUMMARY | 2025-02-14 11:40 | XMS_ITS | Encounter Summary ---
Author Organization [facility] Address [address] [facility] [place] [address] Care Team Providers Care Therapy Tech Name Role Phone Debbie Middleton Primary Care Provider + [phone] Compa Sam MD Primary Care Provider + [phone] Debbie Middleton Primary Care Provider [phone] Compa Sam MD Unavailable [phone] Debbie Middleton Primary Care Provider [phone] Compa Sam MD Primary Care Provider [phone] Quintin Hope MD Unavailable [phone] Encounter Details Date Type Department Care Team (Late st Contact Info) Description 04/22/2022 Telephone [facility] - [address] [place] [address] Samara Auguste, RN Social History Tobacco Use [...] on file 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 Dr. Sotomayor notified.Please return call @ [phone]. documented in this encounter Plan of Treatment [...] documented as of this encounter Care Teams Therapy Tech Relationship Specialty Start Date End Date Debbie Middleton APRN-COMMUNITY DEVELOPMENT OFFICER PCP - General 10/06/21 08/29/22 Compa Sam MD [address] [place] [address] PCP - General Family Medicine 08/30/22 09/25/22 Debbie Middleton APRN-COMMUNITY DEVELOPMENT OFFICER PCP - General 09/26/22 09/28/22 Debbie Middleton APRN-COMMUNITY DEVELOPMENT OFFICER PCP - General 10/11/22 12/27/22 Compa Sam MD [address] [place] [address] PCP - General 12/28/22 Compa Sam MD [address] [place] [address] Family Medicine 09/29/22 Quintin Hope MD [address] [place] [address] [address] [place] [address] Nephrology 04/10/24 documented as of this encounter
--- OUTSIDE RECORDS SUMMARY | 2025-02-14 11:40 | XMS_ITS | Encounter Summary ---
Author Organization [facility] Health Address [address] [facility] [place] [address] Care Team Providers Care Mannequin Refinisher Name Role Phone Compa Sam MD Unavailable [phone] Compa Sam MD Primary Care Provider [phone] Quintin Hope MD Unavailable [phone] Encounter Details Date Type Department Care Team (Late st Contact Info) Description 02/06/2024 Lab Requisition [facility] [address] [place] [phone] Quintin Snow MD [facility] [place] [address] Social History Tobacco Use Types Packs/Day Years [...] on file 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 Comment:The Hold HLA specime n has been received into the lab and will be held for 5 years at 4 degrees. Blood BLOOD SPECIMEN / Unknown 01/25/2024 1:43 PM CDT 02/06/2024 1:43 PM CDT Quintin Snow MD LAB - BLOOD BANK ORDERABLES F inal Result [facility] ([facility]) [address] documented in this encounter Visit Diagnoses Not on filedocumented in this encounter Care Teams Mannequin Refinisher Relationship Specialty Start Date End Date Compa Sam MD [address] [place] [address] PCP - General 12/28/22 Compa Sam MD [address] [place] [address] Family Medicine 09/29/22 Quintin Hope MD 1034 [facility] [address] [place] [address] Nephrology 04/10/24 documented as of this encounter
--- OUTSIDE RECORDS SUMMARY | 2025-02-14 11:40 | XMS_ITS | Encounter Summary ---
Author Organization [facility] Health Address [address] [facility] [place] [address] Care Team Providers Care Customer Support Professional Name Role Phone Compa Sam MD Unavailable [phone] Compa Sam MD Primary Care Provider [phone] Quintin Hope MD Unavailable [phone] Encounter Details Date Type Department Care Team (Late st Contact Info) Description 12/04/2024 Lab Requisition [facility] [address] [place] [phone] Quintin Snow MD 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 Blood BLOOD SPECIMEN / Unknown 11/29/2024 10:43 AM SOUP PERSON 12/04/2024 10:43 AM CDT Quintin Snow MD LAB - BLOOD BANK ORDERABLES F inal Result [facility] ([facility]) [address] [place] [address], [facility] documented in this encounter Visit Diagnoses Not on filedocumented in this encounter Care Teams Customer Support Professional Relationship Specialty Start Date End Date Compa Sam MD [address] [place] [address] PCP - General 12/28/22 Compa Sam MD [address] [place] [address] Family Medicine 09/29/22 Quintin Hope MD 1034 [facility] [address] [place] [address] Nephrology 04/10/24 documented as of this encounter
--- OUTSIDE RECORDS SUMMARY | 2025-02-14 11:40 | XMS_ITS | Encounter Summary ---
Author Organization [facility] Health Address [address] [place] [address] Care Team Providers Care Gis Developer Name Role Phone Compa Sam MD Unavailable [phone] Compa Sam MD Primary Care Provider [phone] Quintin Hope MD Unavailable [phone] Encounter Details Date Type Department Care Team (Late st Contact Info) Description 11/05/2024 Lab Requisition [facility] [address] [place] [phone] Quintin Snow MD [facility] [place] [address] Social History Tobacco Use Types Packs/Day Years [...] on file 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 Blood BLOOD SPECIMEN / Unknown 10/31/2024 2:54 PM HANGER 11/05/2024 2:54 PM HANGER Quintin Snow MD LAB - BLOOD BANK ORDERABLES F inal Result [facility] ([facility]) [address] [place] [address], [facility] documented in this encounter Visit Diagnoses Not on filedocumented in this encounter Care Teams Gis Developer Relationship Specialty Start Date End Date Compa Sam MD [address] [place] [address] PCP - General 12/28/22 Compa Sam MD [address] [place] [address] Family Medicine 09/29/22 Quintin Hope MD 1034 [facility] [address] [place] [address] Nephrology 04/10/24 documented as of this encounter
--- OUTSIDE RECORDS SUMMARY | 2025-02-14 11:40 | XMS_ITS | Continuity of Care Document ---
Author Organization [facility] Address [address] [place] [address] Phone Care Team Providers Care Personal Vehicle Advisor Name Role Phone Tio BLAKELY, Milena Unavailable [...] Diagnoses Date Provider Providers Copied on Encounter [facility], [address] [place] [address], [id number], tel:[phone] [facility] No Information Kinsey Milena. [address] [place] [address], [id number], . tel:[phone] [facility], [address] [place] [address], [id number], tel:[phone] [facility] Kinsey Milena. [address] [place] [address], [id number], . tel:[phone] Referring Provider: Quintin Fitzgerald, [address] [place] [address], [id number]. tel:[phone] [facility], [address] [place] [address], [id number], tel:[phone] [facility] Kinsey Milena. [address] [place] [address], [id number], . tel:[phone] Referring Provider: Quintin Fitzgerald, [address] [place] [address], [id number]. tel:[phone] As per patient privacy policy some of the clinical information may not be visible. Family History Family Member Type Diagnosis Age At Onset No Information Payers Payer name Insurance type Covered democrat ID Authoriza tion(s) Medicare [place] [id number] [place] Fep BL [id number] Social History Type Description Quantity Date Captured Comments Sex Female Smoking Status No Information Sexual Orientation Straight or heterosexual Gender Identity Female Chief Complaint And Reason For Visit No Information Reason For Referral Reason For Referral No Information Plan Of Treatment Date Type Action Status Future Order: Radiology Order Up per Body Flouroscopy (14360A), Ordered on: Ordered History Of Present Illness Encounter Date Complaint History Of Prese nt Illness No Information Functional Status Date Functional Assessmen t No Information Instructions Date Instruction Additional Infor mation No Information Assessments Type Assessment Date No Information Patient Care Teams Name Effective Dates (start - stop) Status Members No Information
--- OUTSIDE RECORDS SUMMARY | 2025-02-14 11:40 | XMS_ITS | Encounter Summary ---
Author Organization [facility] Address [address] [facility] [place] [address] Care Team Providers Care Histology Teacher Name Role Phone Debbie Middleton Primary Care Provider + [phone] Compa Sam MD Primary Care Provider + [phone] Debbie Middleton Primary Care Provider [phone] Compa Sam MD Unavailable [phone] Debbie Middleton Primary Care Provider [phone] Compa Sam MD Primary Care Provider [phone] Quintin Hope MD Unavailable [phone] Reason for Visit * Reason Onset Date Comments MEDICATION REFILL 05/26/2022 Encounter Details Date Type Department Care Team (Late st Contact Info) Description 05/26/2022 Refill [facility] - Nephrology [address] [place] [address], [place] [phone] Abhi Jackson MD [address] [place] [address] [place] [address] MEDICATION REFILL Social History Tobacco [...] on file 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 Gender Identity Not on file Sexual Orientation [...] documented as of this encounter Care Teams Histology Teacher Relationship Specialty Start Date End Date Debbie Middleton APRN-HYPERION ANALYST PCP - General 10/06/21 08/29/22 Compa Sam MD [address] [phone] PCP - General Family Medicine 08/30/22 09/25/22 Debbie Middleton APRN-CNP PCP - General 09/26/22 09/28/22 Debbie Middleton APRN-HYPERION ANALYST PCP - General 10/11/22 12/27/22 Compa Sam MD 6812 [facility] [address] [place] [address] PCP - General 12/28/22 Compa Sam MD [address]12 [facility] [address] [place] [address] Family Medicine 09/29/22 Quintni Hope MD 1034 [facility] 12[address] [place] [address] Nephrology 04/10/24 documented as of this encounter
--- OUTSIDE RECORDS SUMMARY | 2025-02-14 11:40 | XMS_ITS | Encounter Summary ---
Author Organization [facility] Health Address [address] [facility] [place] [address] Care Team Providers Care Hair Spinning Machine Operator Name Role Phone Compa Sam MD Unavailable [phone] Compa Sam MD Primary Care Provider [phone] Quintin Hope MD Unavailable [phone] Encounter Details Date Type Department Care Team (Late st Contact Info) Description 08/09/2024 Lab Requisition [facility] [address] [place] [phone] Quintin Snow MD 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 Blood BLOOD SPECIMEN / Unknown 08/05/2024 10:50 AM DEEP FAT COOK FRY 08/09/2024 10:50 AM DEEP FAT COOK FRY Quintin Snow MD LAB - BLOOD BANK ORDERABLES F inal Result [facility] ([facility] [address] [place] [address], [facility] documented in this encounter Visit Diagnoses Not on filedocumented in this encounter Care Teams Hair Spinning Machine Operator Relationship Specialty Start Date End Date Compa Sam MD [address] [place] [address] PCP - General 12/28/22 Compa Sam MD [address] [place] [address] Family Medicine 09/29/22 Quintin Hope MD [address] [facility] [address] [place] [address] Nephrology 04/10/24 documented as of this encounter
--- OUTSIDE RECORDS SUMMARY | 2025-02-14 11:40 | XMS_ITS | Encounter Summary ---
Author Organization [facility] Health Address [address] [facility] [place] [address] Care Team Providers Care Sales And Merchandising Representative Name Role Phone Compa Sam MD Unavailable [phone] Compa Sam MD Primary Care Provider [phone] Quintin Hope MD Unavailable [phone] Encounter Details Date Type Department Care Team (Late st Contact Info) Description 01/31/2025 Lab Requisition [facility] [address] [place] [phone] Quintin Snow MD [facility] [place] [address] Social History Tobacco Use Types Packs/Day Years [...] on file 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 Blood BLOOD SPECIMEN / Unknown 01/28/2025 11:06 AM CDT 01/31/2025 11:06 AM CDT Quintin Snow MD LAB - BLOOD BANK ORDERABLES F inal Result [facility] ([facility]) [address] [place] [address], [facility] documented in this encounter Visit Diagnoses Not on filedocumented in this encounter Care Teams Sales And Merchandising Representative Relationship Specialty Start Date End Date Compa Sam MD [address] [place] [address] PCP - General 12/28/22 Compa Sam MD [address] [place] [address] Family Medicine 09/29/22 Quintin Hope MD 1034 [facility] [address] [place] [address] Nephrology 04/10/24 documented as of this encounter
--- OUTSIDE RECORDS SUMMARY | 2025-02-14 11:40 | XMS_ITS | Encounter Summary ---
Author Organization [facility] Address [address] [facility] [place] [address] Care Team Providers Care Bunk House Worker Name Role Phone Debbie [place] Primary Care Provider [phone] Compa Sam MD Primary Care Provider + [phone] Debbie Middleton Primary Care Provider [phone] Compa Sam MD Unavailable [phone] Debbie Middleton Primary Care Provider [phone] Compa Sam MD Primary Care Provider [phone] Quintin Hope MD Unavailable [phone] Encounter Details Date Type Department Care Team (Late st Contact Info) Description 04/27/2022 Lab Requisition [facility] [address] [place] [address] Mary Alan MD [address] [place], [place] [id number] Chronic kidney disease, stage 3b; Kidney transplant [...] on file 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 1.5 mm long@ 05/05/2022 3:24 PM CDT [facility] PATHOLOGY LAB Electron Microscopy Technical Summary # of Block(s) cut: 5 # of Glomeruli found: 1 # of Glomeruli photographed: 1 05/05/2022 3:24 PM CDT [facility] LAB Embedded Images - EM 05/05/2022 3:24 PM CDT [facility] Pathology/Cytolo gy (Kidney, Left) 04/26/2022 11:56 AM CDT 04/27/2022 11:44 AM CDT Mary Alan MD LAB - PATHOLOGY/CYTOLOGY ORDER JOSEPH Final Result [facility] LAB [address] [phone] documented in this encounter Visit Diagnoses Diagnosis Chronic kidney disease, stage 3b (HCC) 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 Acute kidney failure, unspecified documented in this encounter Additional Health Concerns Infection Onset Date Last Indicated Resolved Time COVID-19 Under Investigation 07/15/2022 07/15/2022 07/26/2022 4:33 AM CDT documented as of this encounter Care Teams Bunk House Worker Relationship Specialty Start Date End Date Debbie Middleton APRN-BEE RANCHER PCP - General 10/06/21 08/29/22 Compa Sam MD [address] [address] PCP - General Family Medicine 08/30/22 09/25/22 Debbie Middleton APRN-BEE RANCHER PCP - General 09/26/22 09/28/22 Debbie Middleton APRN-BEE RANCHER PCP - General 10/11/22 12/27/22 Compa Sam MD [address] [place] [address] PCP - General 12/28/22 Compa Sam MD [address] [place] [address] Family Medicine 09/29/22 Quintin Hope MD 1034 [facility] [address] [place] [address] Nephrology 04/10/24 documented as of this encounter
--- OUTSIDE RECORDS SUMMARY | 2025-02-14 11:40 | XMS_ITS | Continuity of Care Document ---
Author Organization [facility] Address [address] [place] [id number] Phone Care Team Providers Care Lithographic Photographer Apprentice Name Role Phone Bre BLAKELY, Leoncio Unavailable [...] Providers Copied on Encounter [facility], [address], [id number], tel:[phone] [facility] No Information 9 hSirley Fang. [address] [facility], [facility] [address], [place], [place], [id number], [place]. tel:[phone] Referring Provider: Vitaly Jacinto, [address] [place] [address] [address], [place], [place], [id number]. tel:[phone] [facility], [address], [id number], [place] tel:[phone] [facility] Chronic kidney disease, stage 4 (severe)Hyper tensive chronic kidney disease w stg 1-4/unsp chr kdnySecondary hyperparathyr oidism of renal originAnemia in chronic kidney disease 9 Shirley Fang. [address] [facility], [address], [place], [place], [id number], [place]. tel:[phone] Referring Provider: Vitaly Jacinto, [address], [place], [place], [id number]. tel:[phone] [facility], [address], [id number], [place] tel:[phone] [facility] No Information 9 Shirley Fang. [address] [facility], [address], [place], [id number], [place]. tel:[phone] Referring Provider: Vitaly Jacinto, [address], [place], [place], [id number]. tel:[phone] [facility], [address], [id number], [place] tel:[phone] [facility] [place] Chronic kidney disease, stage 4 (severe)Hyper tensive chronic kidney disease w stg 1-4/unsp chr kdnySecondary hyperparathyr oidism of renal originAnemia in chronic kidney disease 9 Shirley Fang. [address] [facility], [address], [id number], [place]. tel:[phone] Referring Provider: Vitaly Jacinto, [address], [place], [place], [id number]. tel:[phone] [facility], [address], [id number], [place] tel:[phone] [facility] [place] Chronic kidney disease, stage 4 (severe)Hyper tensive chronic kidney disease w stg 1-4/unsp chr kdnySecondary hyperparathyr oidism of renal originAnemia in chronic kidney disease 8 Shirley Fang. [address] [facility], [address], [place], [place], [id number], [place]. tel:[phone] Referring Provider: Vitaly Jacinto, [address], [place], [place], [id number]. tel:[phone] [facility], [address] [place] [address], [id number], [place] tel:[phone] [facility] [place] Chronic kidney disease, stage 4 (severe)Hyper tensive chronic kidney disease w stg 1-4/unsp chr kdnySecondary hyperparathyr oidism of renal originAnemia in chronic kidney disease 8 Shirley Fang. [address] [facility], [address], [place], [place], [id number], [place]. tel:[phone] Referring Provider: Vitaly Jacinto, [address], [place], [place], [id number]. tel:[phone] [facility], [address] [place] [address], [id number], [place] tel:[phone] [facility] [place] Chronic kidney disease, stage 4 (severe)Hyper tensive chronic kidney disease w stg 1-4/unsp chr kdnySecondary hyperparathyr oidism of renal originAnemia in chronic kidney disease 8 Shirley Fang. [address] [facility], [address], [place], [place], [id number], [place]. tel:[phone] Referring Provider: Vitaly Jacinto, [address], [place], [place], [id number]. tel:[phone] Office/outpat ient Visit, Est [facility], [address] [place] [address], [id number], [place] tel:[phone] [facility] [place] Chronic Kidney Disease (chief complaint) Hypertensi on (chief complaint) Chronic kidney disease, stage 4 (severe)Hyper tensive chronic kidney disease w stg 1-4/unsp chr kdnySecondary hyperparathyr oidism of renal originAnemia in chronic kidney disease 8 Shirley Fang. [address] [facility], [address], [place], [place], [id number], [place]. tel:[phone] Referring Provider: Vitaly Jacinto, [address], [place], [place], [id number]. tel:[phone] [facility], [address] [place] [address], [id number], [place] tel:[phone] [facility] [place] Chronic kidney disease, stage 4 (severe)Hyper tensive chronic kidney disease w stg 1-4/unsp chr kdnySecondary hyperparathyr oidism of renal originAnemia in chronic kidney disease 8 Shirley Fagn. [address] [facility], [address], [place], [place], [id number], [place]. tel:[phone] [facility], [address] [place] [address], [id number], [place] tel:[phone] [facility] [place] Chronic kidney disease, stage 4 (severe)Hyper tensive chronic kidney disease w stg 1-4/unsp chr kdnySecondary hyperparathyr oidism of renal originAnemia in chronic kidney disease 0 8 Shirley Fang. [address] [facility], [address], [place], [place], [id number], [place]. tel:[phone] [facility], [address], [id number], [place] tel:[phone] [facility] [place] No Information Jun-3 8 Shirley Fang. [address] [facility], [address], [place], [place], [id number], [place]. tel:[phone] [facility], [address] [place], [id number], [place] tel:[phone] [facility] [place] No Information 8 Shirley Fang. [address] [facility], [address], [place], [place], [id number], [place]. tel:[phone] Referring Provider: Vitaly Jacinto, [address], [place], [place], [id number]. tel:[phone] Office/outpat ient Visit, Est [facility], [address] [place] [address], [id number], [place] tel:[phone] [facility] [place] Chronic Kidney Disease (chief complaint) Hypertensi on (chief complaint) Chronic kidney disease, stage 4 (severe)Hyper tensive chronic kidney disease w stg 1-4/unsp chr kdnySecondary hyperparathyr oidism of renal originAnemia in chronic kidney disease 8 Shirley Fang. [address] [facility], [address], [place], [place], [id number], [place]. tel:[phone] Referring Provider: Vitaly Jacinto, [address], [place], [place], [id number]. tel:[phone] [facility], [address], [id number], [place] tel:[phone] [facility] No Information 8 Shirley Fang. [address] [facility], [address], [place], [place], [id number], [place]. tel:[phone] Referring Provider: Vitaly Jacinto, [address], [place], [place], [id number]. tel:[phone] Office/outpat ient Visit, Est [facility], [address] [place] [address], [id number], [place] tel:[phone] [facility] [place] Chronic Kidney Disease (chief complaint) Hypertensi on (chief complaint) Chronic kidney disease, stage 4 (severe)Hyper tensive chronic kidney disease w stg 1-4/unsp chr kdnySecondary hyperparathyr oidism of renal originAnemia in chronic kidney disease Adriel-0 8 Shirley Fang. [address] [facility], [address], [place], [place], [id number], [place]. tel:[phone] Referring Provider: Vitaly Jacinto, [address], [place], [place], [id number]. tel:[phone] [facility], [address], [id number], [place] tel:[phone] [facility] [place] Chronic kidney disease, stage 4 (severe)Hyper tensive chronic kidney disease w stg 1-4/unsp chr kdnySecondary hyperparathyr oidism of renal originAnemia in chronic kidney disease 8 Shirley Fang. [address] [facility], [address], [place], [place], [id number], [place]. tel:[phone] Referring Provider: Vitaly Jacinto, [address], [place], [place], [id number]. tel:[phone] Office/outpat ient Visit, [facility], [address], [id number], [place] tel:[phone] [facility] [place] Chronic Kidney Disease (chief complaint) Chronic kidney disease, stage 4 (severe)Hyper tensive chronic kidney disease w stg 1-4/unsp chr kdnySecondary hyperparathyr oidism of renal originAnemia in chronic kidney disease Nov-0 8 Shirley Fang. [address] [facility], [address], [place], [place], [address], [place]. tel:[phone] Referring Provider: Vitaly Jacinto, [address], [place], [place], [id number]. tel:[phone] [facility], [address], [id number], [place] tel:[phone] [facility] [place] No Information 8 Shirley Fang. [address] [facility], [address], [place], [place], [id number], . tel:[phone] Office/outpat ient Visit, Est [facility], [address] [place] [address], [id number], [place] tel:[phone] [facility] [place] Chronic Kidney Disease (chief complaint) Chronic kidney disease, stage 4 (severe)Hyper tensive chronic kidney disease w stg 1-4/unsp chr kdnySecondary hyperparathyr oidism of renal originAnemia in chronic kidney disease 7 Shirley Fang. [address] [facility], [address], [place], [place], [id number], [place]. tel:[phone] Referring Provider: Vitaly Jacinto, [address], [place], [place], [id number]. tel:[phone] Office/outpat ient Visit, Est [facility], [address] [place] [address], [id number], tel:[phone] [facility] [place] Chronic Kidney Disease (chief complaint) Chronic kidney disease, stage 4 (severe)Hyper tensive chronic kidney disease w stg 1-4/unsp chr kdnySecondary hyperparathyr oidism of renal originAnemia in chronic kidney disease Sep- 7 Shirley Fang. [address] [facility], [address], [place], [place], [id number], [place]. tel:[phone] Referring Provider: Vitaly Jacinto, [address], [place], [place], [id number]. tel:[phone] Office/outpat ient Visit, Est [facility], [address] [place] [address], [id number], [place] tel:[phone] [facility] [place] Chronic Kidney Disease (chief complaint) Chronic kidney disease, stage 4 (severe) 7 Shirley Fang. [address] [facility], [address], [place], [place], [id number], [place]. tel:[phone] Referring Provider: Vitaly Jacinto, [address], [place], [place], [id number]. tel:[phone] [facility], [address], [id number], [place] tel:[phone] [facility] [place] Chronic kidney disease, stage 3 (moderate)Ess ential (primary) hypertension 7 Shirley Fang. [address] [facility], [address], [place], [place], [address], [place]. tel:[phone] Referring Provider: Vitaly Jacinto, [address], [place], [place], [id number]. tel:[phone] Office/outpat ient Visit, [facility], [address] [place] [address], [id number], [place] tel:[phone] [facility] [place] Chronic Kidney Disease (chief complaint) Chronic kidney disease, stage 3 (moderate)Ess ential (primary) hypertension 7 Shirley Fang. [address] [facility], [address], [place], [place], [id number], [place]. tel:[phone] Referring Provider: Vitaly Jacinto, [address], [place], [place], [id number]. tel:[phone] [facility], [address] [place] [address], [id number], [place] tel:[phone] [facility] Acute kidney failure, unspecifiedAn emia, unspecifiedAc [place] tubulo-inters titial nephritisEsse ntial (primary) hypertension May-0 2-201 7 Swapnil Sumner. [address] [place], [id number], [place]. [phone] Referring Provider: Vera Deshpande, [address] [place], [address]. tel:[phone] Subsequent Hospital Care [facility], [address] [place] [address], [id number], [place] tel:[phone] [facility] Acute kidney failure, unspecifiedEs sential (primary) hypertensionA nemia, unspecifiedAc [place] tubulo-inters titial nephritis May-0 2-201 7 Fahad Amaya. [address] [facility], [facility] [address], [place], [place], [id number], [place]. tel:[phone] Referring Provider: Vera Deshpande, [address] [place], [address]. tel:[phone] Initial Inpatient Consult [facility], [address] [place] [address], [id number], [place] tel:[phone] [place] [address] Acute kidney failure, unspecifiedAn emia, unspecifiedAc [place] tubulo-inters titial nephritisEsse ntial (primary) hypertension May-0 2-201 7 Fahad Amaya. [address] [facility], [address], [place], [place], [id number], [place]. tel:[phone] Referring Provider: Vera Deshpande, [address] [place], [address]. tel:[phone] Subsequent Hospital Care [facility], [address] [place] [address], [id number], [place] tel:[phone] [facility] Acute kidney failure, unspecifiedAn emia, unspecifiedAc [place] tubulo-inters titial nephritisEsse ntial (primary) hypertension May-0 2-201 7 Fahad Amaya. [address] [facility], [address], [place], [place], [id number], [place]. tel:[phone] Referring Provider: Vera Deshpande, [address] [facility], [place], [address]. tel:[phone] Office/outpat ient Visit, [facility], [address] [place], [id number], [place] tel:[phone] [facility] [place] Chronic kidney disease, stage 3 (moderate)Ess ential (primary) hypertension Apr- 7 Shirley Fang. [address] [facility], [address], [place], [place], [id number], [place]. tel:[phone] Referring Provider: Vitaly Jacinto, [address], [place], [place], [id number]. tel:[phone] Subsequent [facility] Care [facility], [address] [place], [place], [id number], [place] tel:[phone] [facility] Acute kidney failure, unspecifiedCh ronic kidney disease, stage 3 (moderate)Acq uired absence of kidneyUrinary tract infection, site not specified Apr-0 7 Bandar Brooks. [address] [facility], [address], [place], [place], [address], [place]. tel:[phone] Referring Provider: Kimmy Rhodes, [address] [place], [address]. tel:[phone] Subsequent [facility], [address] [place], [id number], [place] tel:[phone] [facility] Acute kidney failure, unspecifiedCh ronic kidney disease, stage 3 (moderate)Ane neva, unspecified Apr-0 7 Jonathan Mckeon. [address] [facility], [address], [place], [place], [id number], [place]. tel:[phone] Referring Provider: Kimmy Rhodes, [address] [place], [address]. tel:[phone] Subsequent Hospital Care [facility], [address] [place] [address], [id number], [place] tel:[phone] [place] [address] Acute kidney failure, unspecifiedCh ronic kidney disease, stage 3 (moderate) Apr-0 7 Andrzej Heredia. [address] [facility], [address], [place], [place], [address], [place]. tel:[phone] Referring Provider: Kimmy Rhodes, [address] [place] [address], [address]. tel:[phone] Initial Inpatient Consult [facility], [address] [place] [address], [id number], [place] tel:[phone] [place] [address] Acute kidney failure, unspecifiedCh ronic kidney disease, stage 3 (moderate)Acq uired absence of kidneyUrinary tract infection, site not specified Apr-0 7 Shirley Fang. [address] [facility], [address], [place], [place], [id number], [place]. tel:[phone] Referring Provider: Kimmy Rhodes, [address] [place], [address]. tel:[phone] Subsequent Hospital Care [facility], [address] [place] [address], [id number], [place] tel:[phone] [facility] Acute kidney failure, unspecifiedCh ronic kidney disease, stage 3 (moderate)Ane neva, unspecified Apr-0 7 Jonathan Mckeon. [address] [facility], [address], [place], [place], [id number], [place]. tel:[phone] Referring Provider: Kimmy Rhodes, [address] [place], [address]. tel:[phone] Subsequent Hospital Care [facility], [address] [place] [address], [place], [place], [id number], [place] tel:[phone] [facility] Acute kidney failure, unspecifiedCh ronic kidney disease, stage 3 (moderate)Acq uired absence of kidneyUrinary tract infection, site not specified Apr-0 7 Fahad Amaya. [address] [facility], [address], [place], [place], [id number], [place]. tel:[phone] Referring Provider: Kimmy Rhodes, [address] [place], [address]. tel:[phone] Subsequent [facility], [address] [place] [address], [id number], [place] tel:[phone] [facility] Acute kidney failure, unspecifiedCh ronic kidney disease, stage 3 (moderate)Ane neav, unspecified Apr-0 7 Jonathan Mckeon. [address] [facility], [address], [place], [place], [id number], [place]. [phone] Referring Provider: Kimmy Rhodes, [facility] [place], [address]. tel:[phone] [facility], [address] [place] [address], [id number], [place] tel:[phone] [facility] Acute kidney failure, unspecifiedCh ronic kidney disease, stage 3 (moderate)Acq uired absence of kidneyUrinary tract infection, site not specified Apr-0 7 Jonathan Mckeon. [address] [facility], [address], [place], [place], [id number], [place]. tel:[phone] Referring Provider: Kimmy Rhodes, [address] [place], [address]. tel:[phone] Office/outpat ient Visit, [facility], [address], [place], [id number], [place] tel:[phone] [facility] [place] Stage 3 CKDEssential (primary) hypertension May- 6 Shirley Fang. [address] [facility], [address], [place], [place], [address], [place]. tel:[phone] Office Consultation [facility], [address] [place] [address], [id number], [place] tel:[phone] [facility] [place] Chronic Kidney Disease (chief complaint) Stage 3 CKD 6 Shirley Fang. [address] [facility], [address], [place], [place], [id number], [place]. tel:[phone] Referring Provider: Vitaly Jacinto, [address] [place] [address] [address], [place], [place], [id number]. tel:[phone] [facility], [address], [id number], [place] tel:[phone] Hypercalcemia Hyperlipidemi a UnspecifiedHy perparathyroi dism, UnspecHyperte nsion,UnspIns omniaChronic Kidney Disease-Stage 3Hyperparathy roidism, PrimaryOth Dsrd Bn/cartEdemaH ypertension/B enign 1 Terry Guzman. [address] [facility], [address], [place], [place], [id number], [place]. tel:[phone] Office/outpat ient Visit, Est [facility], [address] [place] [address], [id number], [place] tel:[phone] [facility] [place] No Information 1 Terry Guzman. [address] [facility], [address], [place], [place], [id number], [place]. 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
--- OUTSIDE RECORDS SUMMARY | 2025-02-14 11:40 | XMS_ITS | Encounter Summary ---
Author Organization [facility] Health Address [address] [facility] [place] [address] Care Team Providers Care Class C Truck Driver Name Role Phone Compa Sam MD Unavailable [phone] Compa Sam MD Primary Care Provider [phone] Quintin Hope MD Unavailable [phone] Reason for Visit * Reason Comments Refill Request Encounter Details Date Type Department Care Team (Late st Contact Info) Description 05/25/2023 Refill [facility] - Nephrology [address] [place] [address], [place] [id number] Reva Edmond MD [address] [place] [address] [facility] [place], [place] [id number] Refill Request Social History Tobacco Use Types [...] on file 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
--- OUTSIDE RECORDS SUMMARY | 2025-02-14 11:40 | XMS_ITS | Encounter Summary ---
Author Organization [facility] Health Address [address] [facility] [place] [address] Care Team Providers Care Crossing Gateman Name Role Phone Compa Sam MD Unavailable [phone] Compa Sam MD Primary Care Provider [phone] Quintin Hope MD Unavailable [phone] Encounter Details Date Type Department Care Team (Late st Contact Info) Description 10/09/2023 Lab Requisition [facility] [address] [place] [id number] Quintin Snow MD 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 Comment:The Hold HLA specime n has been received into the lab and will be held for 5 years at 4 degrees. Blood BLOOD SPECIMEN / Unknown 09/29/2023 12:00 PM NET APPLICATIONS DEVELOPER 10/09/2023 2:53 PM NET APPLICATIONS DEVELOPER Quintin Snow MD LAB - BLOOD BANK ORDERABLES F inal Result [facility] ([facility]) [facility] [address] documented in this encounter Visit Diagnoses Not on filedocumented in this encounter Care Teams Crossing Gateman Relationship Specialty Start Date End Date Compa Sam MD [address] [facility] [address] [place] [address] PCP - General 12/28/22 Compa Sam MD [address] [facility] [address] [place] [address] Family Medicine 09/29/22 Quintin Hope MD [address] [facility] [address] [place] [address] Nephrology 04/10/24 documented as of this encounter
--- OUTSIDE RECORDS SUMMARY | 2025-02-14 11:40 | XMS_ITS | Encounter Summary ---
Author Organization [facility] Address [address] [place] [address] Care Team Providers Care Production Control Manager Name Role Phone Compa Sam MD Unavailable [phone] Compa Sam MD Primary Care Provider [phone] Quintin Hope MD Unavailable [phone] Encounter Details Date Type Department Care Team (Late st Contact Info) Description 09/13/2024 Lab Requisition [facility] MA[facility] [address] [place] [id number] Quintin Snow MD [facility] [place] [address] Social History Tobacco Use Types Packs/Day Years [...] on file 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 Comment:The Hold HLA specime n has been received into the lab and will be held for 5 years at 4 degrees. Blood BLOOD SPECIMEN / Unknown 08/27/2024 1:04 PM FLUE TILE PRESS OPERATOR 09/13/2024 1:04 PM FLUE TILE PRESS OPERATOR Quintin Snow MD LAB - BLOOD BANK ORDERABLES F inal Result [facility] ([facility]) [address] [place] [address], [facility] documented in this encounter Visit Diagnoses Not on filedocumented in this encounter Care Teams Production Control Manager Relationship Specialty Start Date End Date Compa Sam MD [address] [place] [address] PCP - General 12/28/22 Compa Sam MD [address] [place] [address] Family Medicine 09/29/22 Quintin Hope MD [address] [facility] [address] [place] [address] Nephrology 04/10/24 documented as of this encounter
--- OUTSIDE RECORDS SUMMARY | 2025-02-14 11:40 | XMS_ITS | Encounter Summary ---
Author Organization [facility] Address [address] [place] [address] Care Team Providers Care Wine Maker Name Role Phone Debbie Middleton Primary Care Provider + [phone] Compa Sam MD Primary Care Provider + [phone] Debbie Middleton Primary Care Provider [phone] Compa Sam MD Unavailable [phone] Debbie Middleton Primary Care Provider [phone] Compa Sam MD Primary Care Provider [phone] Quintin Hope MD Unavailable [phone] Reason for Visit * Reason Comments Kidney Transplant Follow-up Encounter Details Date Type Department Care Team (Late st Contact Info) Description 05/09/2022 Telephone [facility] - [address] [phone] Samara Auguste, RN Kidney Transplant [...] on file 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 [address] [place] [phone] PCP - General Family Medicine 08/30/22 09/25/22 Debbie Middleton APRN-CNP PCP - General 09/26/22 09/28/22 Debbie Middleton APRN-CNP PCP - General 10/11/22 12/27/22 Compa Sam MD [address] [place] [address] PCP - General 12/28/22 Compa Sam MD [address] [facility] [address] [place] [address] Family Medicine 09/29/22 Quintin Hope MD [address] [facility] [address] [place] [address] Nephrology 04/10/24 documented as of this encounter
--- OUTSIDE RECORDS SUMMARY | 2025-02-14 11:40 | XMS_ITS | Encounter Summary ---
Author Organization [facility] Address [address] [place] [address] Care Team Providers Care Supplier Relationship Director Name Role Phone Debbie Middleton Primary Care Provider [phone] Compa Sam MD Primary Care Provider + [phone] Debbie Middleton Primary Care Provider [phone] Compa Sam MD Unavailable [phone] Debbie Middleton Primary Care Provider [phone] Compa Sam MD Primary Care Provider [phone] Quintin Hope MD Unavailable [phone] Encounter Details Date Type Department Care Team (Late st Contact Info) Description 02/02/2022 Lab Requisition [facility] Pathology Lab [address] [place] [address] Reva Edmond MD [address] [facility] [address] [place] [address] Other intermediate (current) drug therapy Social History Tobacco Use [...] on file 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 Care Pathology Lab Received: 02/02/2022 10:09 [...] Images - EM 02/07/2022 3:[address] [facility] PATHOLOGY LAB Pathology/Cytolo gy BIOPSY OF TRANSPLANTED KIDNEY USING ULTRASOUND GUIDANCE / Unknown 01/27/2022 7:57 AM CDT 02/02/2022 10:09 AM CDT us Reva Edmond MD LAB - PATHOLOGY/CYTOLOGY ORD ERABLES Final Result Performing Organization Address [facility]/State/[facility] Co de Phone Number 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 documented in this encounter Additional Health Concerns Infection Onset Date Last Indicated Resolved Time COVID-19 Under Investigation 07/15/2022 07/15/2022 07/26/2022 4:33 AM CDT documented as of this encounter Care Teams Supplier Relationship Director Relationship Specialty Start Date End Date Debbie Middleton APRN-PAYROLL TAX ANALYST PCP - General 10/06/21 08/29/22 Compa Sam MD [address] [place] [phone] PCP - General Family Medicine 08/30/22 09/25/22 Debbie Middleton APRN-PAYROLL TAX ANALYST PCP - General 09/26/22 09/28/22 Debbie Middleton APRN-PAYROLL TAX ANALYST PCP - General 10/11/22 12/27/22 Compa Sam MD [address] [place] [address] PCP - General 12/28/22 Compa Sam MD [address] [place] [address] Family Medicine 09/29/22 Quintin Hope MD [address] [facility] [address] [place] [address] Nephrology 04/10/24 documented as of this encounter
--- OUTSIDE RECORDS SUMMARY | 2025-02-14 11:40 | XMS_ITS | Clinical Summary ---
Author Organization [facility] [employer] Address [address] [place] [address] Care Team Providers Care Legend Maker Name Role Phone Compa Sam MD Unavailable [phone] Compa Sma MD Primary Care Provider [phone] Quintin Hope MD Unavailable [phone] Source Comments [facility],non-owned Affiliates and Associated Physician Practices is amultiple site organization consisting of ambulatory clinics and hospital sitesin [place], [place] and [place]. This disclosure is being madepursuant to the Care Everywhere program and may not contain all information available regarding this patient. Last updated 18.[facility] Allergies Active Allergy Reactions Criticality Noted [...] Gluc Sensor (FreeStyle Rubia [address]) [facility] [place] Active bumetanide (Bumex) 2 MG tablet [...] were not included. Brandy Smith 1960 Referring Insurance Examiner: Quintin Hope Listing Date: 05/10/2023 Dialysis Info: Type: HD M,W,F Time: 06/16/2022 Blood Type: O POS Body mass index is 31.76 kg/m . ALERTS Listed for Hep C kidneys Induction Method: Immunosuppression Induction Method/Plan: Antithymocyte globulin (rabbit) (Thymoglobulin) 5 mg/kg Mechanical Drafter: Dr. 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 Prior to that was Urosepsis? 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 in [facility] BCC (basal cell carcinoma of skin) [...] on januvia, follows with Dr. 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 Benjamin Date: 10/25/2022 Nephrology Clinic Appt w/: Dr. Edmond Date: 10/25/2022 HPI: Patient is a 62 year old white female with history of ESRD 2/2 unknown etiology; now s/p living unrelated donor transplant from her 10/13/2018 which was done at [facility] ( ). This was HLA 2 A, [...] dosing ( according to Dr. Lorenzo, her retail advertising sales manager). Eventually MPA was reduced to 360 mg [...] of her kidney disease is: Rejection. Her wiyot kidney disease is still undetermined. I discussed [...] followup in PRN. Rina Tracy PA-C Physician Product Marketing Manager in Internal Medicine Bassam Moran MD Professor of Internal Medicine No orders of the defined types were placed in this encounter. Nephrology: 04/18/[address] Edmond HPI: Patient is a 62 year old white female with history of ESRD 2/2 unknown etiology; now s/p living unrelated donor transplant from her 10/13/2018 which was done at [facility] ( ). This was HLA 2 A, [...] dosing ( according to Dr. Lorenzo, her retail advertising sales manager). Eventually MPA was reduced to 360 mg [...] to volume overload & HTN. Discontinue Belatacept. Chcf Immunosuppression Use Currently on: Belatacept monthly as [...] neurological changes CT HEAD WO CONTRAST Order: [id number] Status: Final result Visible to patient: Yes (seen) Next appt: 12/20/2022 at 10:20 AM in Transplant ([facility] TXP SURG 302) Dx: Acute nonintractable headache, unspec... 0 Result Notes Details Reading Physician Reading Date Result Priority Dwain Alcala MD [phone] 10/21/2021 Richy John DO [phone] 10/21/2021 Narrative & Impression EXAMINATION: CT OF [...] internal capsule. Dictated by Richy John D.O. (Underground Drill Operator) I, Dr. DWAIN ALCALA have personally reviewed [...] follows q 3-[address] Foreman [place] path reports: Pathology: Cardiology: 10/25/2024 HPI Brandy [...] demonstrated. Electronically Signed By: Vishal Pittman MD, [facility] 2024-12-29 4:16:59 PM CDT Holter monitor: [...] Pt presented to review recent hospitalization at [facility]. Pt treated for Sepsis infection. Reviewed positive blood cultures for Staph aureus. Reviewed Echo and LHC results. Echo shows EF 30-35%, Takotsubo cardiomyopathy (Broken Heart syndrome). LHC report shows no CAD yet NSTEMI (EF 50%). Per team, make inactive for 3 months. Pt will need Cardiac clearance then repeat Echo and represent. [facility] 04/11/2024 Committee Review Decision: Remain Active Prior Transplants: N/A EPTS: 84 at 04/11/2024 1:23 PM Calculated from: Age: 64 years Has Diabetes: Yes Prior solid organ transplant: No Dialysis: 1 year 9 months Committee Discussion Details: Pt presented at [facility] for Hep C kidney listing. Reviewed [...] Method/Plan: Antithymocyte globulin (rabbit) (Thymoglobulin) 5 mg/kg [facility] note: 04/13/2023 Induction Method: Immunosuppression Induction Method/Plan: Antithymocyte globulin (rabbit) (Thymoglobulin) 3 mg/kg *pt still on belatacept, will get repeat DSAs once off, may need to change induction plan* Committee Discussion Details: Pt's case presented at [facility] today for approval to list. HH [...] Committee Discussion Details: Pt's case presented at [facility] to discuss her candidacy for txp. [...] will be reported in an addendum. at 6577 Microscopic Description and Comment 1 H&E, 1 [...] segmental glomerulosclerosis (FSGS). Previous renal allograft biopsy ([id number]) showed light microscopic findings consistent with acute [...] glomerular basement membrane label. Fibrinogen: Nonspecific label. [place]: 3+ cast label. Lambda: 3+ cast label. Addendum 1 Electron Microscopy: [id number]. Xbs-kkvqdtcwcp-rwwio, tnducarba-fkcv-zohcikt sections of five blocks are reviewed; one [...] will be reported in an addendum. at 1537 Microscopic Description and Comment 1 H&E, 1 [...] glomerular basement membrane label. Fibrinogen: Nonspecific label. [place]: 3+ cast label. Lambda: 3+ cast label. C4d: Negative paratubular capillary label. Addendum 1 Electron Microscopy: [id number]. Ayu-tepcqezujr-sjbos, yhhqtywrt-uonb-tewbkto sections of two blocks are reviewed; one is selected for ultrastructural analysis. Transmission electron microscopic analysis of a single glomerulus shows moderate effacement of visceral epithelial foot processes, reduced endothelial fenestrations, a moderate increase in mesangial matrix, and segmental mesangial interposition. 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 Kidney allograft bx: Completed at [facility] (14 days post txp) EK03/25/2023 Component Ref Range & Units 7 mo ago Heart Rate bpm 77 MI Interval ms 187 [address] [place] deg 30 QRS Interval ms 89 QT Interval ms 418 QTcB (Best for HR 60-90 bpm) ms 475 QTCf ms 454 QRS [place] deg 19 T Wave [place] deg 27 EKG Impression - NORMAL ECG [...] in size. Limited Echo for EF: 11/21/2024 ([facility]) CONCLUSIONS: Normal left ventricular systolic [...] nondilated. Normal spleen and adrenal glands. The wiyot right kidney is absent. There is cystic degeneration of the wiyot left kidney with innumerable simple and hemorrhagic [...] IPMN seen on MRI Angio completed at [facility] in 04/2022 COMPARISON: MRI angiography of [...] hemorrhagic cysts are present throughout the left wiyot kidney. A single left renal artery is present and normal in caliber. There is no wiyot right kidney Transplant kidney in the left [...] Dates: None Previous Recommendations: None Presenter: Sourav Colorist Formulator: None Interventional Radiologist: None Surgeon: Sourav Transplant [...] Question: Review imaging; discuss next steps/recommendations Labs: [facility] Latest Reference Range & Units 11/07/22 12:06 [...] intensity cysts are present throughout the left wiyot kidney. The right kidney is not seen [...] Tumor Board follow up: 04/06/2023 Presenter: Sourav Colorist Formulator: None Interventional Radiologist: None Surgeon: Sourav Transplant [...] None Question: Review MRI and discuss Labs: [facility] Latest Reference Range & Units 11/07/22 12:06 [...] intensity cysts are present throughout the left wiyot kidney suggestive of hemorrhagic/proteinaceous content. Some cysts [...] Next colonoscopy was done on 01/20/25 at [facility] but prep not sufficient. They are rescheduling her in 6 mo with 2 day prep. Mammogram: 06/19/2024 Pap: GIGI with SBO 11/21/2000 - records scanned in under media Pathology: Panorex/Dental: SW: 12/31/2024 Clinical Social Work Impression: It is the impression of this social service coordinator that Brandy Smith has several positive factors for Kidney transplant candidacy from a psychosocial perspective. Patient appears to have appropriate knowledge of illness. Patient has sufficient insurance coverage and stable financial situation for post transplant needs. No concerns regarding substance abuse, legal issues, or mental health needs. Patient has adequate support system and appropriate discharge plan. Plan: broke worker to provide supportive services as needed. Patient remains a reasonable candidate for transplant from a psychosocial perspective. Psychiatric Consult Recommended: No Transplant Biomed Tech: Naima Rocha LMSW Abdominal Transplant Biomed Tech [phone] Annual Transplant Caregiver Confirmation Note Caregiver Confirmation Date Primary Name of Primary: Mike Smith Relationship: Spouse - Confirmed during initial assessment - INSOLE RASPER form received on 12/22/22 Secondary Name of [...] 08/30/2022 Assessment & Plan (08/30/2022 4:53 PM LAB ASST): Principal issue for the consultation today. Patient [...] statin Assessment & Plan (08/30/2022 4:54 PM LAB ASST): Continue rosuvastatin Failed kidney transplant 06/06/2022 Hyperuricemia [...] kidney disease, unspecified CKD stage, unspecified whether terminal operator insulin use 10/20/2021 Hyperparathyroidism 10/20/2021 Stage 3b [...] nifedipine Assessment & Plan (08/30/2022 4:54 PM LAB ASST): BP appropriate in clinic today - continue [...] - 02/11/2025 11:59 PM CDT Hospital Encounter [facility] [address] [place] [phone] Jr Obregon MD Discharge Disposition: Home or Self Care 02/11/2025 Telephone [facility] TRANSPLANT [address] [place] [phone] Lilian Sky, RN Kidney Transplant Evaluation 02/05/2025 Telephone [facility] TRANSPLANT [address] [place] [phone] Lilian Sky, RN Kidney Transplant Evaluation 01/31/2025 Lab Requisition [facility] MA[facility] LAB [place] [place] [address] Quintin Snow MD 01/27/2025 1:00 PM CDT Clinical Support [facility] TXP JEANETTE CSM [address] [place] [address] Fred Jo MD Pre-transplant evaluation for kidney transplant 01/27/2025 Travel 01/16/2025 2:16 PM CDT - 01/16/2025 11:59 PM CDT Hospital Encounter [facility] Imaging Services - Radiology [address] [place] [address] Jr Obregon MD Discharge Disposition: Home or Self Care 01/16/2025 2:16 PM CDT - 01/16/2025 11:59 PM CDT Hospital Encounter [facility] Imaging Services - Radiology [address] [place] [address] Jr Obregon MD Discharge Disposition: Home or Self Care 01/16/2025 2:10 PM CDT - 01/16/2025 2:15 PM CDT Hospital Encounter [facility] Health Imaging Services - Radiology [address] [place] [address] Jr Obregon MD Discharge Disposition: Home or Self Care 01/16/2025 1:15 PM CDT Office Visit [facility] Health Pain Care [address] [place], [place] [address] [address] [place] [address] Jr Obregon MD Primary osteoarthritis of both shoulders (Primary Dx); Sacroiliitis; Status post lumbar spinal fusion 01/15/2025 10:41 AM CDT - 01/15/2025 11:59 PM CDT Hospital Encounter [facility] Pain Care [address] [place] [address] Jr Obregon MD Discharge Disposition: Home or Self Care 01/15/2025 Travel 12/31/2024 Telephone [facility] TRANSPLANT [address] [place] [phone] Lilian Sky RN Kidney Transplant Evaluation 12/30/2024 Telephone [facility] TRANSPLANT [address] [place] [phone] Elvia Alaniz CPC Kidney Transplant Evaluation 12/25/2024 2:21 PM CDT - 12/25/2024 11:59 PM CDT Hospital Encounter [facility] Health Pain Care [address] [place] [address] Jr Obregon MD Discharge Disposition: Home or Self Care 12/25/2024 Orders Only [facility] Pain [facility] [address] [place] [address] Jr Obregon MD Primary osteoarthritis of both knees 12/25/2024 Orders Only [facility] Health Pain Care [address] [place] [address] Jr Obregon MD Primary osteoarthritis of both knees 12/25/2024 Travel 12/24/2024 11:13 AM CDT - 12/24/2024 11:59 PM CDT Hospital Encounter [facility] DIAGNOSTIC RAD OP [address] [place] [address] Fred Jo MD Discharge Disposition: Home or Self Care 12/24/2024 9:44 AM CDT - 12/24/2024 11:12 AM CDT Hospital Encounter [facility] ECHO [address] [place] [address] Abundio Benjamin MD Discharge Disposition: Home or Self Care 12/24/2024 8:30 AM CDT - 12/24/2024 9:43 AM CDT Hospital Encounter [facility] ECHO [address] [place] [address] bAundio Benjamin MD Discharge Disposition: Home or Self Care 12/24/2024 7:52 AM CDT - 12/24/2024 8:29 AM CDT Hospital Encounter [facility] INFUSION CENTER [address] [place] [address] Rina Tracy PA-C Discharge Disposition: Home or Self Care 12/24/2024 Travel 12/04/2024 Lab Requisition [facility] MA[facility] LAB [address] [place] [address] Quintin Snow MD 12/02/2024 12:24 PM CDT - 12/02/2024 11:59 PM CDT Hospital Encounter [facility] Health Imaging Services - Radiology [address] [place] [address] Jr Obregon MD Discharge Disposition: Home or Self Care 12/02/2024 11:45 AM CDT Office Visit [facility] Health Pain Care [address] [place] [address] Jr Obregon MD Primary osteoarthritis of both knees (Primary Dx) 12/02/2024 Telephone [facility] TRANSPLANT [address] [place] [phone] Lilian Sky, RN Kidney Transplant Evaluation 12/02/2024 [...] on file Legal Sex Female 8:35 AM LAB ASST Gender Identity Not on file Sexual Orientation [...] last dose Medical Devices Implanted Type Area Geographic Information Systems Analyst Device Identifier Shelf Expiration Date Model / Serial / Lot Kit Jeffry Drflw Embosafe Chrnc Dlys Implanted:Qty: 1 on 06/08/2022 at [facility] [employer] 10/25/2024 [id number] Graft Vasc 4-7mm 45cm Hep Propaten Ptfe - [id number] Implanted:Qty: 1 on 12/07/2022 by Abundio Benjamin MD at [facility] Right: Arm [employer] [id number] 06/15/2026 [id number] / [id number] / Stent Eprsth Sprfc Fem Art Ilium 5cm 8mm - [id number] Implanted:Qty: 1 on 08/04/2023 by Flakito Yu MD at [facility] Right: Arm [employer] 05/09/2026 [id number] / [id number] / Kit Durathane Drflw Embosafe Chrnc Dlys Implanted:Qty: 1 on 08/24/2023 at [facility] Left: Chest [employer] 01/22/2026 [id number] / [id number] Description:LIJ by Dr. Mike Kit Durathane Drflw Embosafe Chrnc Dlys Implanted:Qty: 1 on 09/13/2023 at [facility] Left: Chest [employer] 09/24/2025 [id number] Description:implaned by Dr. Mike Perioneal Dialysis Catheter Implanted:Qty: 1 on 09/27/2023 by Fred Jo MD at [facility] Left: Abdomen 06/22/2027 [id number] / / [id number] Description:Peritoneal Dialy sis Catheter, 57cm, Curl Cath, [...] kidney disease on chronic dialysis, unspecified whether [place] [facility] use ([facility]) Hypertension, unspecified type Takotsubo cardiomyopathy 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) Recurrent UTI IPMN (intraductal papillary mucinous neoplasm) Tachycardia ECHO STRESS DOBUTAMINE W CONTRAST Routine 12/24/2024 11:02 AM CDT Pre-kidney transplant, listed ESRD (end stage renal disease) (HCC) Dependence on peritoneal dialysis Type 2 diabetes mellitus with chronic kidney disease on chronic dialysis, unspecified whether terminal operator insulin use ([facility]) Hypertension, unspecified type Takotsubo cardiomyopathy 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) Recurrent UTI IPMN (intraductal papillary mucinous neoplasm) Tachycardia ECHO COMPLETE Routine 12/24/2024 9:25 AM CDT Pre-kidney transplant, listed ESRD (end stage renal disease) (HCC) Type 2 diabetes mellitus with chronic kidney disease on chronic dialysis, unspecified whether terminal operator insulin use ([facility]) Hypertension, unspecified type Takotsubo cardiomyopathy URINALYSIS REFLEX MICROSCOPIC REFLEX CULTURE Routine 12/24/2024 8:25 AM CDT Pre-kidney transplant, listed ESRD (end stage renal disease) (HCC) Dependence on peritoneal dialysis Type 2 diabetes mellitus with chronic kidney disease on chronic dialysis, unspecified whether terminal operator insulin use (HCC) Hypertension, unspecified type Takotsubo cardiomyopathy 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) Recurrent UTI IPMN (intraductal papillary mucinous neoplasm) Tachycardia PROTEIN CREATININE RATIO URINE RANDOM PNL Routine 12/24/2024 8:25 AM CDT Pre-kidney transplant, listed ESRD (end stage renal disease) (HCC) Dependence on peritoneal dialysis Type 2 diabetes mellitus with chronic kidney disease on chronic dialysis, unspecified whether terminal operator insulin use (HCC) Hypertension, unspecified type Takotsubo cardiomyopathy 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) Recurrent UTI IPMN (intraductal papillary mucinous neoplasm) Tachycardia QUANTIFERON-TB GOLD PLUS 4-TUBE Routine 12/24/2024 8:25 AM CDT Pre-kidney transplant, listed ESRD (end stage renal disease) (HCC) Dependence on peritoneal dialysis Type 2 diabetes mellitus with chronic kidney disease on chronic dialysis, unspecified whether terminal operator insulin use (HCC) Hypertension, unspecified type Takotsubo [...] kidney disease on chronic dialysis, unspecified whether terminal operator insulin use (HCC) Hypertension, unspecified type Takotsubo cardiomyopathy 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) Recurrent UTI IPMN (intraductal papillary mucinous neoplasm) Tachycardia TOXOPLASMA GONDII ANTIBODY IGG Routine 12/24/2024 8:24 AM CDT Pre-kidney transplant, listed ESRD (end stage renal disease) (HCC) Dependence on peritoneal dialysis Type 2 diabetes mellitus with chronic kidney disease on chronic dialysis, unspecified whether [facility] insulin use (HCC) Hypertension, unspecified type Takotsubo cardiomyopathy 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) Recurrent UTI IPMN (intraductal papillary mucinous neoplasm) Tachycardia HIV-1 HIV-2 ANTIBODY + HIV P24 AG PANEL Routine 12/24/2024 8:24 AM CDT Pre-kidney transplant, listed ESRD (end stage renal disease) (HCC) Dependence on peritoneal dialysis Type 2 diabetes mellitus with chronic kidney disease on chronic dialysis, unspecified whether terminal operator insulin use (HCC) Hypertension, unspecified type Takotsubo cardiomyopathy 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) Recurrent UTI IPMN (intraductal papillary mucinous neoplasm) Tachycardia OPIATES BLOOD Routine 12/24/2024 8:24 AM CDT Pre-kidney transplant, listed ESRD (end stage renal disease) (HCC) Dependence on peritoneal dialysis Type 2 diabetes mellitus with chronic kidney disease on chronic dialysis, unspecified whether [facility] insulin use (HCC) Hypertension, unspecified type Takotsubo cardiomyopathy 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) Recurrent UTI IPMN (intraductal papillary mucinous neoplasm) Tachycardia COCAINE METABOLITE BLOOD QUANT Routine 12/24/2024 8:24 AM CDT Pre-kidney transplant, listed ESRD (end stage renal disease) (HCC) Dependence on peritoneal dialysis Type 2 diabetes mellitus with chronic kidney disease on chronic dialysis, unspecified whether [facility] insulin use (HCC) Hypertension, unspecified type Takotsubo cardiomyopathy 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) Recurrent UTI IPMN (intraductal papillary mucinous neoplasm) Tachycardia AMPHETAMINE BLOOD CONFIRMATION Routine 12/24/2024 8:24 AM CDT Pre-kidney transplant, listed ESRD (end stage renal disease) (HCC) Dependence on peritoneal dialysis Type 2 diabetes mellitus with chronic kidney disease on chronic dialysis, unspecified whether terminal operator insulin use (HCC) Hypertension, unspecified type Takotsubo cardiomyopathy 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) Recurrent UTI IPMN (intraductal papillary mucinous neoplasm) Tachycardia NICOTINE + METABOLITES BLOOD Routine 12/24/2024 8:24 AM CDT Pre-kidney transplant, listed ESRD (end stage renal disease) (HCC) Dependence on peritoneal dialysis Type 2 diabetes mellitus with chronic kidney disease on chronic dialysis, unspecified whether terminal operator insulin use (HCC) Hypertension, unspecified type Takotsubo cardiomyopathy 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) Recurrent UTI IPMN (intraductal papillary mucinous neoplasm) Tachycardia SYPHILIS ANTIBODY CASCADING REFLEX Routine 12/24/2024 8:24 AM CDT Pre-kidney transplant, listed ESRD (end stage renal disease) (HCC) Dependence on peritoneal dialysis Type 2 diabetes mellitus with chronic kidney disease on chronic dialysis, unspecified whether terminal operator insulin use (HCC) Hypertension, unspecified type Takotsubo cardiomyopathy 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) Recurrent UTI IPMN (intraductal papillary mucinous neoplasm) Tachycardia HEMOGLOBIN A1C Routine 12/24/2024 8:24 AM CDT Pre-kidney transplant, listed ESRD (end stage renal disease) (HCC) Dependence on peritoneal dialysis Type 2 diabetes mellitus with chronic kidney disease on chronic dialysis, unspecified whether [facility] insulin use (HCC) Hypertension, unspecified type Takotsubo cardiomyopathy 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) Recurrent UTI IPMN (intraductal papillary mucinous neoplasm) Tachycardia HEPATITIS A ANTIBODY Routine 12/24/2024 8:24 AM CDT Pre-kidney transplant, listed ESRD (end stage renal disease) (HCC) Dependence on peritoneal dialysis Type 2 diabetes mellitus with chronic kidney disease on chronic dialysis, unspecified whether [facility] insulin use (HCC) Hypertension, unspecified type Takotsubo cardiomyopathy 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) Recurrent UTI IPMN (intraductal papillary mucinous neoplasm) Tachycardia HEPATITIS C ANTIBODY Routine 12/24/2024 8:24 AM CDT Pre-kidney transplant, listed ESRD (end stage renal disease) (HCC) Dependence on peritoneal dialysis Type 2 diabetes mellitus with chronic kidney disease on chronic dialysis, unspecified whether [facility] insulin use (HCC) Hypertension, unspecified type Takotsubo cardiomyopathy 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) Recurrent UTI IPMN (intraductal papillary mucinous neoplasm) Tachycardia HEPATITIS B CORE ANTIBODY TOTAL Routine 12/24/2024 8:24 AM CDT Pre-kidney transplant, listed ESRD (end stage renal disease) (HCC) Dependence on peritoneal dialysis Type 2 diabetes mellitus with chronic kidney disease on chronic dialysis, unspecified whether [facility] insulin use (HCC) Hypertension, unspecified type Takotsubo cardiomyopathy 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) Recurrent UTI IPMN (intraductal papillary mucinous neoplasm) Tachycardia HEPATITIS B SURFACE ANTIGEN W RFLX CONFIRMATION Routine 12/24/2024 8:24 AM CDT Pre-kidney transplant, listed ESRD (end stage renal disease) (HCC) Dependence on peritoneal dialysis Type 2 diabetes mellitus with chronic kidney disease on chronic dialysis, unspecified whether [facility] insulin use (HCC) Hypertension, unspecified type Takotsubo cardiomyopathy 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) Recurrent UTI IPMN (intraductal papillary mucinous neoplasm) Tachycardia LIPID PROFILE Routine 12/24/2024 8:24 AM CDT Pre-kidney transplant, listed ESRD (end stage renal disease) (HCC) Dependence on peritoneal dialysis Type 2 diabetes mellitus with chronic kidney disease on chronic dialysis, unspecified whether terminal operator insulin use (HCC) Hypertension, unspecified type Takotsubo cardiomyopathy 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) Recurrent UTI IPMN (intraductal papillary mucinous neoplasm) Tachycardia PTH INTACT W/O CALCIUM Routine 12/24/2024 8:24 AM CDT Pre-kidney transplant, listed ESRD (end stage renal disease) (HCC) Dependence on peritoneal dialysis Type 2 diabetes mellitus with chronic kidney disease on chronic dialysis, unspecified whether terminal operator insulin use (HCC) Hypertension, unspecified type Takotsubo cardiomyopathy 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) Recurrent UTI IPMN (intraductal papillary mucinous neoplasm) Tachycardia PHOSPHORUS BLOOD Routine 12/24/2024 8:24 AM CDT Pre-kidney transplant, listed ESRD (end stage renal disease) (HCC) Dependence on peritoneal dialysis Type 2 diabetes mellitus with chronic kidney disease on chronic dialysis, unspecified whether terminal operator insulin use (HCC) Hypertension, unspecified type Takotsubo cardiomyopathy 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) Recurrent UTI IPMN (intraductal papillary mucinous neoplasm) Tachycardia VITAMIN D 25-HYDROXY Routine 12/24/2024 8:24 AM CDT Pre-kidney transplant, listed ESRD (end stage renal disease) (HCC) Dependence on peritoneal dialysis Type 2 diabetes mellitus with chronic kidney disease on chronic dialysis, unspecified whether [facility] insulin use (HCC) Hypertension, unspecified type Takotsubo cardiomyopathy 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) Recurrent UTI IPMN (intraductal papillary mucinous neoplasm) Tachycardia URIC ACID BLOOD Routine 12/24/2024 8:24 AM CDT Pre-kidney transplant, listed ESRD (end stage renal disease) (HCC) Dependence on peritoneal dialysis Type 2 diabetes mellitus with chronic kidney disease on chronic dialysis, unspecified whether [facility] insulin use (HCC) Hypertension, unspecified type Takotsubo cardiomyopathy 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) Recurrent UTI IPMN (intraductal papillary mucinous neoplasm) Tachycardia COMPREHENSIVE METABOLIC PANEL Routine 12/24/2024 8:24 AM CDT Pre-kidney transplant, listed ESRD (end stage renal disease) (HCC) Dependence on peritoneal dialysis Type 2 diabetes mellitus with chronic kidney disease on chronic dialysis, unspecified whether terminal operator insulin use (HCC) Hypertension, unspecified type Takotsubo cardiomyopathy 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) Recurrent UTI IPMN (intraductal papillary mucinous neoplasm) Tachycardia CBC W AUTO DIFFERENTIAL Routine 12/24/2024 8:24 AM CDT Pre-kidney transplant, listed ESRD (end stage renal disease) (HCC) Dependence on peritoneal dialysis Type 2 diabetes mellitus with chronic kidney disease on chronic dialysis, unspecified whether terminal operator insulin use (HCC) Hypertension, unspecified type Takotsubo cardiomyopathy 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) Recurrent UTI IPMN (intraductal papillary mucinous neoplasm) Tachycardia XR KNEE BILAT STANDING 1VW Routine 12/02/2024 12:44 PM CDT Primary osteoarthritis of both knees HOLD HLA SPECIMEN Routine 11/29/2024 10: 43 AM LAB ASST DEXA BONE DENSITY AXIAL SKELETON Routine 02/02/2022 [...] on how to reach the clinic or demand generation manager physician at anytime for questions or complaints. Jr Obregon MD DIAGNOSTIC IMAGING ORDERABLES Fi nal Result * HOLD HLA SPECIMEN (01/28/2025 11:06 AM CDT) Only the most recent of2 resultswithin the time period is included. Hold HLA Specimen 01/31/2025 12:32 PM CDT [facility] ([employer]) Comment:The Hold HLA specime n has been received into the lab and will be held for 5 years at 4 degrees. Blood BLOOD SPECIMEN / Unknown 01/28/2025 11:06 AM CDT 01/31/2025 11:06 AM CDT Quintin Snow MD LAB - BLOOD BANK ORDERABLES F inal Result [facility] ([employer] [facility]) [address] [place] [address] * XR Sacrum And Coccyx (01/16/2025 2:44 [...] Bones are diffusely demineralized. Lumbar levoscoliosis status [id number] instrumented fusion with a Burns josemanuel which [...] kidney disease on chronic dialysis, unspecified whether terminal operator insulin use (HCC) N18.6: Type 2 diabetes mellitus with chronic kidney disease on chronic dialysis, unspecified whether [facility] insulin use (HCC) Z99.2: Type 2 Additional [...] kidney disease on chronic dialysis, unspecified whether [facility] insulin use (HCC) N18.6: Type 2 diabetes mellitus with chronic kidney disease on chronic dialysis, unspecified whether [facility] insulin use (HCC) Z99.2: Type 2 Additional [...] AM Fred Jo MD DIAGNOSTIC IMAGING [facility] Final Result * ECHO STRESS DOBUTAMINE W [...] Stress Lab Patient Status: O/P Study Site: [facility] Primary Location: [facility] EStudy Info Technical Quality: Adequate Exam [...] Attending Physician: Abundio Benjamin Nurse: Tawnya Moise Berry Grower: Cira Encarnacion [facility] Summary * No abnormal ST/T wave changes [...] Stress Lab Patient Status: O/P Study Site: [facility] Primary Location: [facility] Info Technical Quality: Adequate Exam [...] Attending Physician: Abundio Benjamin Nurse: Tawnya Moise Berry Grower: Cira Encarnacion [facility] Summary * No abnormal ST/T wave changes [...] achieved. The patient's peak stress blood pressure qtr551/[address]/T wave changes with [...] 8:59 AM Patient Status: O/P Study Site: [facility] Primary Location: [facility] Info Technical Quality: Good Exam Type: ECHO COMPLETE Indications Please refer to EHR for Exam Diagnosis Codes - Procedure(s) * A complete 2D, color Doppler, spectral Doppler, and M-Mode transthoracic echocardiogram was performed. Staff Referring Physician: Abundio Benjamin Ordering Provider: Abundio Benjamin Attending Physician: Abundio Benjamin Berry Grower: Daria Cazares Left Ventricle The left ventricle [...] 8:59 AM Patient Status: O/P Study Site: [facility] Primary Location: [facility] EStudy Info Technical Quality: Good Exam Type: ECHO COMPLETE Indications Please refer to EHR for Exam Diagnosis Codes - Procedure(s) * A complete 2D, color Doppler, spectral Doppler, and M-Modetransthoracic echocardiogram was performed. Staff Referring Physician: Abundio Benjamin Ordering Provider: Abundio Benjamin Attending Physician: Abundio Benjamin Berry Grower: Daria Cazares Left Ventricle The left ventricle [...] PLUS 4-TUBE (12/24/2024 8:25 AM CDT) Pathologist [facility] QuantiFERON Mitogen Minus NIL 9.97 IU/mL 12/26/2024 6:33 PM CDT [facility] ([facility]) QuantiFERON Nil Value 0.03 IU/mL 12/26/2024 6:33 PM CDT [facility] ([facility]) QuantiFERON Plus TB1 Minus NIL 0.00 <=0.34 IU/mL 12/26/2024 6:33 PM CDT [facility] ([facility]) QuantiFERON Plus TB2 Minus NIL 0.00 <=0.34 IU/mL 12/26/2024 6:33 PM CDT [facility] ([facility]) QuantiFERON-TB Gold Plus Negative Negative 12/26/2024 6:33 PM CDT [facility] ([facility]) Comment: INTERPRETIVE INFORMATION:Quantiferon TB Gold Plus [...] Mycobacterium tuberculosis Infection -- [place], 2010 (http://www.cdc.gov/mmwr/preview/mmwrhtml/vh5981j0.htm), for more information concerning test performance in low-prevalence populations and use in occupational screening. Performed By: [facility] [address] [place] [address] Slate Picker: Gerard Davidson MD, PhD CLIA Number: [id number] Blood BLOOD SPECIMEN / Unknown Venipuncture / Unknown 12/24/2024 8:25 AM CDT 12/24/2024 8:38 AM CDT Fred Jo MD LAB - CHEMISTRY ORDERAB LES Final Result [facility] ([facility]) [address] [place] [address] * (ABNORMAL) URINALYSIS REFLEX MICROSCOPIC REFLEX CULTURE (12/24/2024 8:25 AM CDT) Color UA Yellow Yellow, Straw 12/24/2024 8:59 AM CDT [facility] Clarity UA Clear Clear 12/24/2024 8:59 AM CDT [facility] Glucose UA 2+(A) Normal 12/24/2024 8:59 AM CDT [facility] Bilirubin UA Negative Negative 12/24/2024 8:59 AM [facility] Ketone UA Negative Negative 12/24/2024 8:59 AM [facility] Specific Elliott UA 1.011 1.005 - 1.030 12/24/2024 8:59 AM [facility] Blood UA Trace(A) Negative 12/24/2024 8:59 AM [facility] pH UA 5.5 5.0 - 9.0 pH 12/24/2024 8:59 AM [facility] Protein UA 1+(A) Negative 12/24/2024 8:59 AM [facility] Urobilinogen UA Normal Normal mg/dL 025 8:59 AM [facility] Nitrite UA Negative Negative 12/24/2024 8:59 AM [facility] Leukocyte UA Negative Negative 12/24/2024 8:59 AM [facility] RBC UA 0-2 0 - 5 # /hpf 12/24/2024 8:59 AM [facility] WBC UA 0-5 0 - 5 # /hpf 12/24/2024 8:59 AM [facility] Bacteria UA Trace(A) None Seen 12/24/2024 8:59 AM [facility] Squamous Epithelial Cells 3-5 0 - 5 /hpf 12/24/2024 8:59 AM [facility] Mucus UA 1+ /LPF 12/24/2024 8:59 AM [facility] Urine URINE SPECIMEN OBTAINED BY CLEAN CATCH PROCEDURE / Unknown Collection / Unknown 12/24/2024 8:25 AM CDT 12/24/2024 8:[address] [facility] us Fred Jo MD LAB - URINALYSIS ORDERA BLES Final Result [facility] [address] [place] [phone], [facility] [phone] * (ABNORMAL) PROTEIN CREATININE RATIO URINE RANDOM PNL (12/24/2024 8:25 AM CDT) Protein Urine 84 Not Established mg/dL 12/24/2024 9:00 AM [facility] Creatinine Urine 70.58 Not Established mg/dL 12/24/2024 9:00 AM CDT [facility] Protein/Creati nine Ratio Urine 1.19(H) <0.10 12/24/2024 9:00 AM CDT [facility] Urine URINE SPECIMEN OBTAINED BY CLEAN CATCH PROCEDURE / Unknown Collection / Unknown 12/24/2024 8:25 AM CDT 12/24/2024 8:37 AM CDT rFed Jo MD LAB - URINE CHEMISTRY O RDERABLES Final Result Performing Organization Address City/[facility]/ZIP Co de Phone Number [facility] [address] [place] [address], [facility] [phone] * COCAINE METABOLITE QUANT (12/24/2024 8:24 AM CDT) Cocaine and Metabolite Blood <20 ng/mL 12/27/2024 10:30 PM CDT [facility] ([facility]) Comment: INTERPRETIVE INFORMATION: Cocaine Metabolite, Serum [...] developed and its performance characteristics determined by [facility]. It has not been cleared or approved by the US Food and Drug Administration. This test was performed in a CLIA certified laboratory and is intended for clinical purposes. Performed By: [facility] [address] [place] [address] Slate Picker: Gerard Davidson MD, PhD CLIA Number: [id number] Blood BLOOD SPECIMEN / Unknown Venipuncture / Unknown 12/24/2024 8:24 AM CDT 12/24/2024 8:37 AM CDT Fred Jo MD LAB - CHEMISTRY ORDERAB LES Final Result Performing Organization Address City/[facility]/ZIP Co de Phone Number [facility]) [address] [place] [address] * SYPHILIS ANTIBODY CASCADING REFLEX (12/24/2024 8:24 AM CDT) Treponema pallidum Antibody Non-react lakesha Non-react lakesha 12/24/2024 9:31 AM CDT [facility] Comment: No Laboratory evidence of syphilis infection. Note: Circulating antibodies may be low or undetectable in early infection. If recent exposure is suspected, re-draw sample in 2-4 weeks and repeat testing. Blood BLOOD SPECIMEN / Unknown Venipuncture / Unknown 12/24/2024 8:24 AM CDT 12/24/2024 8:37 AM CDT Fred Jo MD LAB - SEROLOGY ORDERABL ES Final Result [facility] [address] [place] [phone], [facility] [phone] * AMPHETAMINE BLOOD CONFIRMATION (12/24/2024 8:24 AM CDT) Amphetamines Confirmation <20 ng/mL 12/29/2024 7:19 AM CDT [facility] ([facility]) Comment: INTERPRETIVE INFORMATION: Amphetamines, Serum or [...] developed and its performance characteristics determined by [facility]. It has not been cleared or approved by the US Food and Drug Administration. This test was performed in a CLIA certified laboratory and is intended for clinical purposes. Methamphetamine Confirmation <20 ng/mL 12/29/2024 7:19 AM CDT [facility] ([facility]) MDA Confirmation <20 ng/mL 12/30/19 7:19 AM CDT [facility] ([facility]) MDMA Confirm <20 ng/mL 12/29/2024 7:19 AM CDT [facility] ([facility]) MDEA Confirmation <20 ng/mL 025 7:19 AM CDT [facility] ([facility]) Comment: Performed By: [facility] [address] [place] [address] Slate Picker: Gerard Davidson MD, PhD CLIA Number: [id number] Blood BLOOD SPECIMEN / Unknown Venipuncture / Unknown 12/24/2024 8:24 AM CDT 12/24/2024 8:37 AM CDT Fred Jo MD LAB - CHEMISTRY ORDERAB LES Final Result Performing Organization Address City/[facility]/ZIP Co de Phone Number [facility]) [address] [place] [address] * (ABNORMAL) PTH INTACT W/O CALCIUM (12/24/2024 8:24 AM CDT) PTH Intact 858.1(H) 8.0 - 77.0 pg/mL 12/24/2024 9:10 AM CDT [facility] Blood BLOOD SPECIMEN / Unknown Venipuncture / Unknown 12/24/2024 8:24 AM CDT 12/24/2024 8:40 AM CDT Fred Jo MD LAB - CHEMISTRY ORDERAB LES Final Result [address] [phone], [facility] [phone] * HIV-1 HIV-2 ANTIBODY + HIV P24 AG PANEL (12/24/2024 8:24 AM CDT) HIV Antigen/Antibod y 1 & 2 Non-reacti ve Non-react lakesha 12/24/2024 9:31 AM CDT [facility] Comment:No Laboratory eviden ce of HIV infection. Blood BLOOD SPECIMEN / Unknown Venipuncture / Unknown 12/24/2024 8:24 AM CDT 12/24/2024 8:37 AM CDT Fred Jo MD LAB - CHEMISTRY ORDERAB LES Final Result Performing Organization Address [facility] Co de Phone Number [address] [phone], [facility] [phone] * (ABNORMAL) HEPATITIS B SURFACE ANTIBODY QUANT (12/24/2024 8:24 AM CDT) Pathologist [facility] Hepatitis B Virus Surface Antibody Reactive( A) Non-react lakesha 12/24/2024 9:29 AM CDT [facility] Comment: > 12 mIU/mL Hepatitis B surface Antibody (HBsAb). Reactive for HBsAb - individual is considered immune to Hepatitis B Virus infection. Hepatitis B Surface Antibody Quantitative 97.8(H) <8.0 mIU/mL 12/24/2024 9:29 AM CDT [facility] Comment: Hepatitis B Surface Antibody Numeric Result Interpretation: Nonreactive: <8.0 mIU/mL Indeterminate: 8.0 - 12.0 mIU/mL Reactive: >12.0 mIU/mL Blood BLOOD SPECIMEN / Unknown Venipuncture / Unknown 12/24/2024 8:24 AM CDT 12/24/2024 8:37 AM CDT Narrative [facility] - 12/24/2024 9:29 AM CDT This assay should not be used for blood, plasma, or tissue donor screening. This assay is not recommended for neonates born to HBV-infected or suspected HBV-infected mothers. Fred Jo MD LAB - SEROLOGY ORDERABL ES Final Result Performing Organization Address City/[facility]/ZIP Co de Phone Number [facility] [address] [place] [phone], [facility] [phone] * OPIATES BLOOD (12/24/2024 8:24 AM CDT) Pathologist [facility] Opiates Screen Negative 12/27/2024 7:09 PM CDT [facility] ([facility]) Comment:REFERENCE RANGE: thr shold: 10 ng/mL Oxycodone Screen Negative 12/28/19 7:09 PM CDT [facility] ([facility]) Comment:REFERENCE RANGE: thr shold: 10 ng/mL Specimen Type Comment 12/27/2024 7:09 PM CDT [facility]) Comment: WHOLE BLOOD This specimen was screened by immunoassay at the thresholds listed above. Presumptive positive results have not been confirmed by an alternate method; results are intended for clinical medical purposes. Please contact the laboratory if confirmatory testing is desired. This test was developed and its performance characteristics determined by [facility]. It has not been cleared or approved by the Food and Drug Administration. Blood BLOOD SPECIMEN / Unknown Venipuncture / Unknown 12/24/2024 8:24 AM CDT 12/24/2024 9:36 AM CDT Narrative [facility] ([facility]) - 12/27/2024 7:09 PM CDT Performed at: [facility] [employer] [address] [id number] Police Commissioner: Patricia Ozuna [facility], Phone: [phone] Fred Jo MD LAB - CHEMISTRY ORDERAB LES Final Result Performing Organization Address City/[facility]/ZIP Co de Phone Number [facility] ([facility]) [address] [place] [address] * URIC ACID BLOOD (12/24/2024 8:24 AM CDT) [facility] Uric Acid 6.0 2.6 - 6.0 mg/dL 12/24/2024 9:07 AM CDT [facility] Blood BLOOD SPECIMEN / Unknown Venipuncture / Unknown 12/24/2024 8:24 AM CDT 12/24/2024 8:41 AM CDT Fred Jo MD LAB - CHEMISTRY ORDERAB LES Final Result [address] [phone], [facility] [phone] * STRONGYLOIDES ANTIBODY IGG (12/24/2024 8:24 AM CDT) Pathologist [facility] Strongyloides Antibody IgG 0.1 <=0.9 IV 12/26/2024 11:22 PM CDT [facility] ([facility]) Comment: INTERPRETIVE INFORMATION: Strongyloides Ab, IgG [...] also result in false-positive results. Performed By: [facility] [employer] [address] [place] [address] Slate Picker: Gerard Davidson MD, PhD CLIA Number: [id number] Blood BLOOD SPECIMEN / Unknown Venipuncture / Unknown 12/24/2024 8:24 AM CDT 12/24/2024 8:37 AM CDT Fred Jo MD LAB - SEROLOGY ORDERABL ES Final Result [facility]) [address] [place] [address] * TOXOPLASMA GONDII ANTIBODY IGG (12/24/2024 8:24 AM CDT) Pathologist [facility] Toxoplasma Antibody IgG <3.0 <=8.8 IU/mL 12/26/2024 3:01 AM CDT [facility] [employer] [facility] ([facility]) Comment: INTERPRETIVE INFORMATION: Toxoplasma Ab, IgG [...] the amount of antibody present. Performed By: [facility] [address] [place] [address] Slate Picker: Gerard Davidson MD, PhD CLIA Number: [id number] Blood BLOOD SPECIMEN / Unknown Venipuncture / Unknown 12/24/2024 8:24 AM CDT 12/24/2024 8:37 AM CDT Fred Jo MD LAB - CHEMISTRY ORDERAB LES Final Result Performing Organization Address [facility]/ZIP Co de Phone Number [facility]) [address] [place] [address] * (ABNORMAL) CANCER ANTIGEN (CA) 19-9 (12/24/2024 8:24 AM CDT) CA 19-9 50(H) <=35 U/mL 12/26/2024 1:30 AM CDT [facility] [employer] [facility] ([facility]) Comment: INTERPRETIVE INFORMATION: Cancer Antigen-GI (CA [...] or absence of malignant disease. Performed By: [facility] [address] [place] [address] Slate Picker: Gerard Davidson MD, PhD CLIA Number: [id number] Blood BLOOD SPECIMEN / Unknown Venipuncture / Unknown 12/24/2024 8:24 AM CDT 12/24/2024 8:37 AM CDT Fred Jo MD LAB - CHEMISTRY ORDERAB LES Final Result Performing Organization Address [facility]/ZIP Co de Phone Number NMRV ID [facility]) [address] [place] [address] * (ABNORMAL) HEMOGLOBIN A1C (12/24/2024 8:24 AM CDT) Hemoglobin A1c 6.9(H) <=5.6 % 12/24/2024 1:04 PM CDT [facility] Estimated Average Glucose 151 mg/dL 12/24/2024 1:04 PM CDT [facility] Comment: HbA1c Interpretation: Normal : < 5.7% Pre-diabetes: 5.7-6.4% Diabetes: Equal to or greater than 6.5% Test results diagnostic of diabetes should be repeated for confirmation. Treatment target values recommended by ADA and other clinical organizations should be used to evaluate metabolic control in patients. Reference: [place] [employer], Standards of Care in Diabetes [...] ORDERAB LES Final Result Performing Organization Address City/State/[facility] Co de Phone Number [facility] [address] [place] [phone], [facility] [phone] * (ABNORMAL) VITAMIN D 25-HYDROXY (12/24/2024 8:24 AM CDT) Vitamin D, 25 Hydroxy 24.1(L) 30.0 - 80.0 ng/mL 12/24/2024 9:24 AM CDT [facility] Comment: The recommendations for 25-Hydroxy Vitamin D [...] LAB - CHEMISTRY ORDERAB LES Final Result [facility] [address] [address], [facility] [phone] * NICOTINE + METABOLITES BLOOD (12/24/2024 8:24 AM CDT) Nicotine <5 ng/mL 12/28/2024 3:02 PM CDT [facility] ([facility]) Comment: INTERPRETIVE INFORMATION: Nicotine and Metabolites, [...] developed and its performance characteristics determined by [facility]. It has not been cleared or approved by the US Food and Drug Administration. This test was performed in a CLIA certified laboratory and is intended for clinical purposes. Performed By: [facility] [address] [place] [address] Slate Picker: Gerard Davidson MD, PhD CLIA Number: [id number] Cotinine <5 ng/mL 12/28/2024 3:02 PM CDT [facility] ([facility]) Blood BLOOD SPECIMEN / Unknown Venipuncture / Unknown 12/24/2024 8:24 AM CDT 12/24/2024 8:37 AM CDT us Fred Jo MD LAB - CHEMISTRY ORDERAB LES Final Result [facility] ([facility]) [address] [place] [address], [facility] * (ABNORMAL) CBC W AUTO DIFFERENTIAL (12/24/2024 8:24 AM CDT) WBC 9.4 4.0 - 10.7 x10E9/L 12/24/2024 8:53 AM [facility] RBC Count 3.91 3.90 - 5.20 x10E12/L 12/24/2024 8:53 AM [facility] Hemoglobin 10.3(L) 11.9 - 15.8 g/dL 12/24/2024 8:53 AM [facility] Hematocrit 32.5(L) 34.8 - 46.1 % 12/24/2024 8:53 AM [facility] MCV 83.1 80.0 - 98.0 fL 12/24/2024 8:53 AM [facility] MCH 26.3(L) 26.7 - 33.6 pg 12/24/2024 8:53 AM [facility] MCHC 31.7 31.7 - 36.3 g/dL 12/24/2024 8:53 AM [facility] RDW-CV 18.9(H) 11.3 - 14.8 % 12/24/2024 8:53 AM [facility] Platelet Count 239 150 - 420 x10E9/L 12/24/2024 8:53 AM [facility] MPV 10.7 7.8 - 11.4 fL 12/24/2024 8:53 AM [facility] Preliminary Absolute Neutrophil 7.02 1.60 - 7.50 x10E9/L 12/24/2024 8:53 AM [facility] Neutrophil % 74.8(H) 41.0 - 74.0 % 12/24/2024 8:53 AM [facility] Lymphocyte % 13.5(L) 17.0 - 47.0 % 12/24/2024 8:53 AM [facility] Monocyte % 8.7 3.0 - 11.0 % 12/24/2024 8:53 AM [facility] Eosinophil % 2.2 0.0 - 7.0 % 12/24/2024 8:53 AM [facility] Basophil % 0.5 0.0 - 1.6 % 12/24/2024 8:53 AM [facility] Immature Granulocytes % 0.3 0.0 - 1.0 % 12/24/2024 8:53 AM [facility] Neutrophil Absolute 7.02 1.60 - 7.50 x10E9/L 12/24/2024 8:53 AM [facility] Lymphocyte Absolute 1.27 1.00 - 4.40 x10E9/L 12/24/2024 8:53 AM [facility] Monocyte Absolute 0.82 0.15 - 1.00 x10E9/L 12/24/2024 8:53 AM [facility] Eosinophil Absolute 0.21 0.00 - 0.60 x10E9/L 12/24/2024 8:53 AM [facility] Basophil Absolute 0.05 0.00 - 0.13 x10E9/L 12/24/2024 8:53 AM [facility] Blood BLOOD SPECIMEN / Unknown Venipuncture / Unknown 12/24/2024 8:24 AM CDT 12/24/2024 8:40 AM CDT us Fred Jo MD LAB - HEMATOLOGY ORDERA BLES Final Result [facility] [address] [place] [id number], [facility] [phone] * (ABNORMAL) COMPREHENSIVE METABOLIC PANEL (12/24/2024 8:24 AM CDT) BUN 46(H) 7 - 26 mg/dL 12/24/2024 9:07 AM [facility] Creatinine 8.50(H) 0.56 - 0.96 mg/dL 12/24/2024 9:07 AM [facility] Sodium 139 136 - 145 mmol/L 12/24/2024 9:07 AM [facility] Potassium 3.4(L) 3.5 - 4.5 mmol/L 12/24/2024 9:07 AM [facility] Chloride 101 98 - 107 mmol/L 12/24/2024 9:07 AM [facility] CO2 20(L) 22 - 29 mmol/L 12/24/2024 9:07 AM [facility] Glucose 158(H) 70 - 99 mg/dL 12/24/2024 9:07 AM [facility] Calcium 8.4 8.4 - 10.2 mg/dL 12/24/2024 9:07 AM [facility] Protein Total 6.0 6.0 - 8.3 g/dL 12/24/2024 9:07 AM [facility] Albumin 2.5(L) 3.4 - 5.0 g/dL 12/24/2024 9:07 AM [facility] Bilirubin Total 0.3 0.2 - 1.2 mg/dL 12/24/2024 9:07 AM [facility] Alkaline Phosphatase 90 40 - 150 U/L 12/24/2024 9:07 AM [facility] ALT 9 5 - 55 U/L 12/24/2024 9:07 AM [facility] AST 12 5 - 34 U/L 12/24/2024 9:07 AM [facility] Anion Gap 18(H) 6 - 16 12/24/2024 9:07 AM [facility] BUN/Creatinine Ratio 5(L) 7 - 23 12/24/2024 9:07 AM [facility] Osmolality Calculated 303(H) 275 - 295 mOsm/kg 12/24/2024 9:07 AM [facility] Albumin/Globulin Ratio 0.7(L) 1.1 - 2.3 12/24/2024 9:07 AM [facility] eGFR by CKD-EPI 5(L) >=90 mL/min/1.7 3 m2 12/24/2024 9:07 AM [facility] Blood BLOOD SPECIMEN / Unknown Venipuncture / Unknown 12/24/2024 8:24 AM CDT 12/24/2024 8:41 AM CDT Fred Jo MD LAB - CHEMISTRY ORDERAB LES Final Result Performing Organization Address City/[facility]/ZIP Co de Phone Number [address] [address], [place] [phone] * (ABNORMAL) PHOSPHORUS BLOOD (12/24/2024 8:24 AM CDT) Phosphorus 10.6(H) 2.9 - 5.1 mg/dL 12/24/2024 9:07 AM CDT [facility] Blood BLOOD SPECIMEN / Unknown Venipuncture / Unknown 12/24/2024 8:24 AM CDT 12/24/2024 8:41 AM CDT Fred Jo MD LAB - CHEMISTRY ORDERAB LES Final Result Performing Organization Address [facility]/ZIP Co de Phone Number [address] [address], [place] [phone] * HEPATITIS B CORE ANTIBODY (12/24/2024 8:24 AM CDT) HBc Antibody Total Non-reacti ve Non-reacti ve 12/24/2024 9:31 AM CDT [facility] Blood BLOOD SPECIMEN / Unknown Venipuncture / Unknown 12/24/2024 8:24 AM CDT 12/24/2024 8:37 AM CDT Fred Jo MD LAB - CHEMISTRY ORDERAB LES Final Result Performing Organization Address City/[facility]/ZIP Co de Phone Number [address] [address], [place] [phone] * HEPATITIS B SURFACE ANTIGEN W RFLX CONFIRMATION (12/24/2024 8:24 AM CDT) Hepatitis B Virus Surface Antigen Non-reacti ve Non-reacti ve 12/24/2024 9:31 AM CDT [facility] Blood BLOOD SPECIMEN / Unknown Venipuncture / Unknown 12/24/2024 8:24 AM CDT 12/24/2024 8:37 AM CDT Fred Jo MD LAB - CHEMISTRY ORDERAB LES Final Result Performing Organization Address City/[facility]/ZIP Co de Phone Number [address] [address], [facility] [phone] * HEPATITIS C ANTIBODY (12/24/2024 8:24 AM CDT) Hepatitis C Antibody Non-react lakesha Non-reac tive 12/24/2024 9:31 AM CDT [facility] Comment:Hepatitis C Antibody screen indicates no [...] ORDERAB LES Final Result Performing Organization Address City/[facility] Co de Phone Number [address] [address], [facility] [phone] * HEPATITIS A ANTIBODY (12/24/2024 8:24 AM CDT) Hepatitis A Virus Antibody Total Negative Negative 12/26/2024 10:04 PM CDT [employer] ([facility]) Comment: Performed By: [employer] [address] [place] [address] [employer] Picker: Gerard Davidson MD, PhD CLIA Number: [id number] Blood BLOOD SPECIMEN / Unknown Venipuncture / Unknown 12/24/2024 8:24 AM CDT 12/24/2024 8:37 AM CDT Fred Jo MD LAB - CHEMISTRY ORDERAB LES Final Result [facility] [employer] ([facility]) [address] [place] [address] * LIPID PROFILE (12/24/2024 8:24 AM CDT) Cholesterol Total 108 <200 mg/dL 12/24/2024 9:07 AM CDT [facility] HDL 51 >40 mg/dL 12/24/2024 9:07 AM CDT [facility] Comment: ATP III Classification of HDL Cholesterol: <40 mg/dL: Considered a major risk factor. >60 mg/dL: Considered a negative risk factor. LDL Calculated 44 <100 mg/dL 12/24/2024 9:07 AM T [facility] Comment: ATP III Classification of LDL Cholesterol: <100 mg/dL: Optimal 100 - 129 mg/dL: Near Optimal/Above Optimal 130 - 159 mg/dL: Borderline High 160 - 189 mg/dL: High >190 mg/dL: Very High Triglycerides 66 <150 mg/dL 12/24/2024 9:07 AM CDT [facility] Comment: ATP III Classification of Triglycerides: <150 mg/dL: Normal 150 - 199 mg/dL: Borderline High 200 - 400 mg/dL: High >500 mg/dL: Very High Blood BLOOD SPECIMEN / Unknown Venipuncture / Unknown 12/24/2024 8:24 AM CDT 12/24/2024 8:41 AM CDT Fred Jo MD LAB - CHEMISTRY ORDERAB LES Final Result [facility] [address] [place] [address], [facility] [phone] * XR Knee Bilat Standing 1Vw (12/02/2024 [...] Result * BONE DENSITY AXIAL SKELETON(1OR MORE SITES)[id number] (02/02/2022 9:11 AM CDT) Anatomical Region Laterality [...] ordering physician and is also available on [employer], the Radiology Department's computerized picture archive system. [...] theordering physician and is also available on [employer], the Radiology Department's computerized picture archive system. [...] D.O. on02/02/2022 4:15 PM . Francesca Calderón [employer] CONTRACTOR DEXA ORDERABLES Final R esult * COLONOSCOPY (11/17/2021) us Historical Provider MD SCANNING ONLY Final Res ult * MAMMOGRAM (11/09/2021) Anatomical Region Laterality Modality Other us Historical Provider MD SCANNING ONLY Final Res ult from Last 3 Months or Most Recently Relevant to Health Maintenance Insurance [facility] MEDICARE [facility] SELF PAY NO INSURANCE Member Subscriber Plan / Payer (Ef fective for All Dates) Name:Brandy Smith Member ID:Not on file Relation to Subscriber:Not on file Name:BRANDY SMITH Subscriber ID:Not on file (Home) Address: [address] [place] [address] Payer ID:Not on file Group ID:Not on file Type:Self Pay Address: [place], [place] Advance Directives * Full Code (Latest [...] 11:24 AM 01/27/2022 1:13 PM Care Teams Legend Maker Relationship Specialty Start Date End Date Compa Sam MD [address] [place] [address] PCP - General 12/28/22 Compa Sam MD [address] [place] [address] Family Medicine 09/29/22 Quintin Hope MD [address] [facility] [address] [place] [address] Nephrology 04/10/24
--- OUTSIDE RECORDS SUMMARY | 2025-02-14 11:40 | XMS_ITS | Encounter Summary ---
Author Organization [facility] Health Address [address] [facility] [place] [address] Care Team Providers Care Dress Marker Name Role Phone Compa Sam MD Unavailable [phone] Compa Sam MD Primary Care Provider [phone] Quintin Hope MD Unavailable [phone] Encounter Details Date Type Department Care Team (Late st Contact Info) Description 10/18/2024 Lab Requisition [facility] [address] [place] [id number] Quintin Snow MD [facility] [place] [address] Social History Tobacco Use Types Packs/Day Years [...] on file Legal Sex Female 8:35 AM CASEWORKER Gender Identity Not on file Sexual Orientation [...] HLA SPECIMEN Routine 10/10/2024 1:3 8 PM CASEWORKER documented in this encounter Results * HOLD HLA SPECIMEN (10/10/2024 1:38 PM CASEWORKER) Hold HLA Specimen 10/18/2024 3:00 PM CASEWORKER [facility] Comment:The Hold HLA specime n has been received into the lab and will be held for 5 years at 4 degrees. Blood BLOOD SPECIMEN / Unknown 10/10/2024 1:38 PM CASEWORKER 10/18/2024 1:38 PM CASEWORKER Quintin Snow MD LAB - BLOOD BANK ORDERABLES F inal Result [facility] ([facility]) [address] [place] [address], [facility] documented in this encounter Visit Diagnoses Not on filedocumented in this encounter Care Teams Dress Marker Relationship Specialty Start Date End Date Compa Sam MD [address] [place] [address] PCP - General 12/28/22 Compa Sam MD [address] [place] [address] Family Medicine 09/29/22 Quintin Hope MD [address] [facility] [address] [place] [address] Nephrology 04/10/24 documented as of this encounter
--- OUTSIDE RECORDS SUMMARY | 2025-02-14 11:40 | XMS_ITS ---
Author Organization [facility] Address [address] [facility] [place] [address] Care Team Providers Care Aquaculture Program Director Name Role Phone Compa Sam MD Unavailable [phone] Compa Sam MD Primary Care Provider [phone] Quintin Hope MD Unavailable [phone] Transplant Episode Kidney Candidate [facility] ([place], [place]) - [facility] Center waitlisted on 05/10/2023 Marked as Inactive on 10/10/2024 Reason: Temporarily too Sick Kidney CoordinatorLilian Sky RN Phone: N/A Fax: N/A Email: N/A Scores Score Value Updated Exceptions/Reas ons CPRA Not available EPTS (Calc) 89 02/14/2025 Elim Ira Organ Diagnosis 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 Care Team Name Role Phone Fax Email Lilian Sky RN Kidney Coordinator N/A N/A N/A Reva Edmond MD Transplant Washer Hand [phone] N/A Quintin Hope MD Referring Physician [phone] N/A Joyce Dobson Teacher N/A N/A N/A Events Pre-Transplant Referred: 06/14/2022 Evaluation began: 07/12/2022 Committee: 04/13/2023 UNOS qualified: 06/16/2022 Center waitlisted: 05/10/2023 Dialysis History Dialysis History Start End Type Comments Center 12/26/2023 [facility] 06/16/2022 12/25/2023 Home-Ele Cabezas,W,F; PD tra ining starts 10/25 [facility] Information Center Phone Fax Address [facility] [phone] [address] [address]
--- NOTE | 2025-02-14 11:54 | ECG_ITS ---
Test Date: 2025-02-14 12:20:53 Measurements Intervals [place] Rate: 94 P: 29 MT: 170 QRS: -2 QRSD: 85 T: 28 QT: 340 QTc: 425 Interpretive Statements SINUS RHYTHM POSSIBLE LEFT ATRIAL ENLARGEMENT [-0.1mV P WAVE IN V1/V2] POSSIBLE ANTERIOR MYOCARDIAL INFARCTION [30 ms Q WAVE IN V3/V4, OR R < 0.2 mV IN V4], PROBABLY OLD Compared to ECG 09/26/2024 00:49:59 No significant changes Electronically Signed On 02-14-2025 12:46:32 CDT by Jesse Mcdonald M.D.
--- NOTE | 2025-02-14 11:55 | ED_ITS ---
HPI - Abdominal Pain General Chief Complaint: Urogenital-Female Stated Complaint: i think I have a UTI Time Seen by Provider: 02/14/25 11:18 History of Present Illness HPI narrative: Patient is a 65-year-old female who presents to the ER with complaints of left lower abdominal pain and blood in my urine. She reports her symptoms started yesterday. Patient's reports she has had some altered mental status over the last 24 hours, along with chills and a fever. She reports she has a history of a kidney transplant that failed, so she does peritoneal dialysis every night. Patient reports her last peritoneal dialysis was last night. She also endorses a history of high blood pressure and diabetes. Patient denies any chest pain, shortness of breath, or recent cough. She reports her blood sugars have been elevated lately due to a recent cortisone injection in her shoulder. Related Data Home Medications ?Medication ?Instructions ?Recorded ?Confirmed ?Last Taken ?Type aspirin 81 mg tablet,delayed 81 mg PO DAILY 10/24/19 01/09/25 11/16/21 History release allopurinol 100 mg tablet 150 mg PO DAILY 07/22/22 01/20/25 01/19/25 History calcitriol 0.25 mcg capsule 0.25 mcg PO DAILY 07/22/22 01/20/25 01/19/25 History cinacalcet 30 mg tablet 60 mg PO .nightly 07/22/22 01/20/25 01/19/25 History cholecalciferol (vitamin D3) 100 100 mcg PO DAILY 08/09/22 01/20/25 01/19/25 History mcg (4,000 unit) tablet metoprolol succinate 50 mg 50 mg PO BID 08/09/22 01/20/25 01/20/25 History tablet,extended release 24 hr nifedipine 30 mg tablet,extended 30 mg PO HS 08/09/22 01/20/25 01/19/25 History release bumetanide 2 mg tablet 2 mg PO DAILY 12/02/23 01/20/25 01/19/25 History vitamin B complex-vitamin C-folic 1 tablet PO DAILY 12/02/23 01/20/25 01/19/25 History acid 0.8 mg tablet ([place]-Carol) cyclobenzaprine 5 mg tablet 5 mg PO TID PRN muscle spasm 01/15/24 01/09/25 Unknown History trazodone 50 mg tablet 50 mg PO HS 01/15/24 01/20/25 01/19/25 History lansoprazole 30 mg capsule,delayed 30 mg PO BID 07/07/24 01/20/25 01/19/25 History release rosuvastatin 20 mg tablet 20 mg PO DAILY 07/07/24 01/20/25 01/19/25 History sitagliptin phosphate 25 mg tablet 25 mg PO DAILY 07/07/24 01/20/25 01/19/25 History (Januvia) doxazosin 1 mg tablet 4 mg PO DAILY 09/25/24 01/20/25 01/19/25 History hydroxyzine HCl 10 mg tablet 10 mg PO HS 01/09/25 01/20/25 01/19/25 History ferric citrate 210 mg iron tablet 2 tablet PO BID 02/14/25 02/14/25 Unknown History (Auryxia) Allergies Allergy/AdvReac Type Severity Reaction Status Date / Time amoxicillin Allergy Unknown Rash Verified 02/14/25 10:38 clavulanic acid Allergy Unknown RASH Verified 02/14/25 10:38 fentanyl AdvReac Unknown very Verified 02/14/25 10:38 emotional crying levofloxacin AdvReac Unknown Nausea And Verified 02/14/25 10:38 Vomiting Review of Systems 2 Review of Systems: All systems reviewed & are unremarkable except as noted in HPI and below PMFSH Past Medical History Medical History Diabetes CKD (chronic kidney disease) Patient on peritoneal dialysis HTN (hypertension) Type 2 diabetes mellitus Thrombocytopenia Chronic anemia Cytomegalovirus Gastroesophageal reflux disease Hypertension End-stage renal disease on hemodialysis Wilm's tumor of right kidney Arthritis Hyperlipidemia Renal transplant recipient Failed transplant now on hemodialysis. Surgical History Surgical History History of hysterectomy History of cholecystectomy History of appendectomy History of renal transplant (09/2018) History of right nephrectomy As a child for Wilms tumor. Family History Family History Mother Family history of thyroid disease Family history of osteoporosis Depression Hypertension Family history of elevated blood lipids Family history of arthritis Family history of chronic obstructive pulmonary disease Family history of Alzheimer's disease Family history of atrial fibrillation Sibling Family history of thyroid disease Family history of hypercholesterolemia Hypertension Father Family history of hypercholesterolemia Hypertension Family history of cardiovascular disease Family history of coronary artery disease Social History Social History Social History: Surrogate medical decision maker: Vitaly Casey, spouse. Code status: Full code. Smoking status: Never smoker Second hand tobacco smoke exposure: No Alcohol intake: never Alcohol use details: Occasional Substance use: never Substance use type: does not use Do You Feel Safe in your Home?: Yes Lack of Transportation: No Lack of Food: Never True Current Housing: I Have Housing Concerned About Future Housing: No Difficulty Paying Gas/Electric Bills: No Difficulty Paying for Meds: No Currently Unemployed: No Education: Associate Degree Difficulty w/ Childcare or Family Care: No Living arrangements: with family Additional living arrangements comments: Lives in [place] with spouse. 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 Spiritual care concerns: No Exam 2 Narrative: GENERAL: Ill appearing, well-nourished, in no acute distress. HEAD: Normocephalic, atraumatic. NECK: Supple. No adenopathy, no masses. RESPIRATORY: Airway patent, respirations nonlabored. Clear to auscultation bilaterally, no rales, rhonchi, wheezing. CARDIOVASCULAR: Tachycardia without murmurs, rubs, or gallops. Peripheral pulses 2+ and equal bilaterally. ABDOMINAL: Soft, tender in LLQ, nondistended, no hepatosplenomegaly. Normoactive BS. MUSCULOSKELETAL: Moves all extremities. Strength/ROM intact without gross deformities. SKIN: Warm, dry, normal color. No rashes. NEURO: A&O X3. Speech clear. Cranial nerves II-XII intact. No ataxic movements. PSYCHIATRIC: Flat affect Course Vital Signs Vital signs: Vital Signs Temperature 36.8 C 02/14/25 10:36 Pulse Rate 110 H 02/14/25 10:36 Respiratory Rate 16 02/14/25 10:36 Blood Pressure 152/86 H 02/14/25 10:36 Pulse Oximetry 97 02/14/25 10:36 Temperature 36.8 C 02/14/25 10:36 Pulse Rate 92 02/14/25 17:20 Respiratory Rate 18 02/14/25 17:20 Blood Pressure 171/90 H 02/14/25 17:20 Pulse Oximetry 92 02/14/25 17:20 MDM - Abdominal Pain MDM Narrative Medical decision making narrative: Patient is a 65-year-old female who presents to the ER with complaints of left lower abdominal pain and blood in my urine. She reports her symptoms started yesterday. Patient's reports she has had some altered mental status over the last 24 hours, along with chills and a fever. She reports she has a history of a kidney transplant that failed, so she does peritoneal dialysis every night. Patient reports her last peritoneal dialysis was last night. She also endorses a history of high blood pressure and diabetes. Patient denies any chest pain, shortness of breath, or recent cough. She reports her blood sugars have been elevated lately due to a recent cortisone injection in her shoulder. Labs Ordered: CBC, CMP, CRP, troponin, PTT, INR, blood cultures lipase, lactic acid Imaging Ordered: CT abdomen/pelvis without contrast Medications Ordered: 1 L normal saline IV bolus, vancomycin IV Results: Pt's CT scan indicates Left lower quadrant transplant kidney without hydronephrosis or stone. There is extensive hazy infiltration of the fat at the left transplant hilar region and surrounding mesenteric fat. This is of uncertain etiology. Correlate for infectious or inflammatory process of the transplant kidney. Somewhat atrophic left [place] kidney with innumerable presumed simple and hyperdense cysts, but no hydronephrosis. Presumed prior right nephrectomy. Moderate abdominal pelvic ascites with peritoneal dialysis catheter present. Diagnosis: urinary tract infection Consults: 1430- Spoke with Dr. Gardiner, information technology program manager, who advised pt start on broad spectrum IV antibiotics. He also suggested we contact [facility] (where pt received her transplant) for further suggestions. 1600- Spoke with [facility] nephrology fellow, Dr Sher, who advised pt be admitted to this hospital for IV antibiotics. He advised pt be treated as though she has pyelonephritis. Dr. Sher advised pt receive Ceftriaxone IV. Once pt is ready for discharge he advised pt receive a steroid dose pack. He reports if pt's symptoms have not improved in two weeks, then she should follow-up in the kidney transplant clinic and they can discuss removal of the kidney. Dr. Sher advised this surgery would not be emergent, so there is no need for pt to be transferred to [facility] for further evaluation. 1640- Spoke with Dr. Gardiner again who reports he will put orders in for patient to receive peritoneal dialysis tonight. Patient Education/Shared MDM: Results of lab work and imaging shared with patient. It was advised that patient be admitted to the hospital for IV antibiotic administration. Patient and her verbalize understanding and are in agreement with plan. She does not want to be admitted because nothing will happen over a holiday weekend but it was explained to patient that she needs IV antibiotics and not a procedure at this time. Patient verbalizes understanding. All questions answered. Pt's vital signs stable and pt is A & O x 4 at time of transport upstairs. Differential Diagnosis Differential diagnosis: Likely other (UTI, peritonitis) Lab Data Attestation: I reviewed the patient's lab results. 02/14/25 12:55 02/14/25 12:55 Labs: Lab Results 02/14/25 02/14/25 Range/Units 11:29 12:55 WBC 16.5 H (4.5-10.0) K/mm3 RBC 3.99 L (4.2-5.4) M/mm3 Hgb 10.9 L D (12.0-15.0) g/dL Hct 35.3 L (37.0-47.0) % MCV 88.5 (80-100) fl MCH 27.3 (26-34) pg MCHC 30.9 L (32-36) g/dl RDW 18.4 H (11.5-14.5) % Plt Count 136 L D (150-375) k/mm3 MPV 10.3 (7.4-10.4) fl Immature Gran % (Auto) 0.9 H (0-0.5) % Neut % (Auto) 87.0 H (45.5-73.1) % Lymph % (Auto) 3.3 L (18.3-44.2) % [place] % (Auto) 8.3 (2.6-8.5) % Eos % (Auto) 0.3 (0-4.4) % Baso % (Auto) 0.2 (0.2-1.2) % Lymph # (Auto) 0.54 L (0.9-3.2) K/mm3 [place] # (Auto) 1.4 H (0.1-0.6) K/mm3 Eos # (Auto) 0.1 (0-0.3) K/mm3 Baso # (Auto) 0.0 (0.0-0.1) K/mm3 Abs Immat Gran (auto) 0.15 H (0.00-0.031) K/mm3 Absolute Neuts (auto) 14.4 H (1.3-6.7) K/mm3 Absolute Nucleated RBC 0.000 (0.0-0.012) K/mm3 Nucleated RBC % 0.0 (0.0-0.2) % PT 16.0 H (11.1-14.7) Seconds INR 1.2 APTT 21.9 L (22.3-36.8) Seconds Sodium 129 L (137-145) mmol/L Potassium 4.4 (3.4-5.0) mmol/L Chloride 94 L (98-107) mmol/L Carbon Dioxide 23 (22-30) mmol/L Anion Gap 12 (4-12) mmol/L BUN 67 H D (7-17) mg/dL Creatinine 8.61 H (0.7-1.0) mg/dL Estim Creat Clear Calc 6 ml/min Estimated GFR 5 L (59 - ) Glucose 147 H (65-110) mg/dL Lactic Acid 1.3 (0.7-2.0) mmol/L Calcium 8.1 L (8.4-10.2) mg/dL Total Bilirubin 0.7 (0.2-1.3) mg/dL AST 54 H (14-36) U/L ALT 82 H (6-35) U/L Alkaline Phosphatase 114 (38-126) U/L Troponin I 0.012 (0.000-0.034) ng/mL C-Reactive Protein 22.5 H (<1.0) mg/dL Total Protein 6.0 L (6.3-8.2) g/dL Albumin 3.1 L (3.5-5.1) g/dL Lipase 40 (23-300) U/L Urine Color Yellow (Yellow) Urine Appearance Cloudy H (Clear) Urine pH 7.5 (5.0-9.0) Ur Specific [place] 1.020 (1.001-1.035) Urine Protein 3+ H (Negative) mg/dL Urine Glucose (UA) 3+ H (Negative) mg/dL Urine Ketones Negative (Negative) mg/dL Ur Blood (Man) 3+ H (Negative) Urine Nitrate Negative (Negative) Urine Bilirubin Negative (Negative) Urine Urobilinogen 0.2 (<2.0) mg/dL Leukocyte Esterase Rfl 1+ H (Negative) SAEID/UL Urine RBC 21-50 H (0-2) /hpf Urine WBC 0-5 (0-3) /hpf Ur Squamous Epith Cells None seen (Few) /hpf Broad Casts Imaging Data Attestation: I personally reviewed and interpreted this imaging study as follows: Radiologist's impression: ITS Impressions Abdomen/Pelvis CT 02/14/25 12:35 Impression: Left lower quadrant transplant kidney without hydronephrosis or stone. There is extensive hazy infiltration of the fat at the left transplant hilar region and surrounding mesenteric fat. This is of uncertain etiology. Correlate for infectious or inflammatory process of the transplant kidney. Somewhat atrophic left [place] kidney with innumerable presumed simple and hyperdense cysts, but no hydronephrosis. Presumed prior right nephrectomy. Moderate abdominopelvic ascites with peritoneal dialysis catheter present. Discharge Plan Discharge Clinical Impression: Kidney transplant recipient, Pyelonephritis of transplanted kidney Patient Disposition: Still a Patient Condition: Stable
[2025-02-14 12:07] LABS: Add Urine Microscopic? YES; Appearance Urine Cloudy (Clear); Color Urine Yellow (Yellow)
[2025-02-14 12:08] LABS: Blood Urine 3+ (Negative); Glucose Urine UA 3+ mg/dL (Negative); Ketones Urine Negative (Negative); Nitrate Urine Negative (Negative); Protein Urine 3+ mg/dL (Negative); pH Urine 7.5 (5.0-9.0)
[2025-02-14 12:09] LABS: Bilirubin Urine Negative (Negative); Leukocyte Esterase Ur 1+ LEU/UL (Negative); RBC Urine 21-50 /hpf (0-2); Urobilinogen Urine 0.2 mg/dL (<2.0)
[2025-02-14 12:10] LABS: Squamous Epithelial Cell Urine None Seen /hpf (Few); WBC Urine 0-5 /hpf (0-3)
[2025-02-14] MEDS: SODIUM CHLORIDE 0.9% IV 500 ML 999 ML IV CONT (12:54)
[2025-02-14 13:03] LABS: Basophils Percent Auto 0.2 % (0.2-1.2); Eosinophils Absolute Auto 0.1 K/mm3 (0-0.3); Eosinophils Percent Auto 0.3 % (0-4.4); Hematocrit 35.3 % (37.0-47.0); Hemoglobin 10.9 g/dL (12.0-15.0); Immature Granulocyte Absolute 0.15 K/mm3 (0.00-0.031); Immature Granulocyte Percent A 0.9 % (0-0.5); Lymphocytes Absolute Auto 0.54 K/mm3 (0.9-3.2); Lymphocytes Percent Auto 3.3 % (18.3-44.2); Mean Corpuscular HGB Conc 30.9 g/dl (32-36); Mean Corpuscular Hemoglobin 27.3 pg (26-34); Mean Corpuscular Volume 88.5 fl (80-100); Mean Platelet Volume 10.3 fl (7.4-10.4); Monocytes Absolute Auto 1.4 K/mm3 (0.1-0.6); Monocytes Percent Auto 8.3 % (2.6-8.5); Neutrophils Absolute Auto 14.4 K/mm3 (1.3-6.7); Platelet Count Result 136 k/mm3 (150-375); Red Blood Count 3.99 M/mm3 (4.2-5.4); Red Cell Distribution Width 18.4 % (11.5-14.5); White Blood Count 16.5 K/mm3 (4.5-10.0)
[2025-02-14 13:21] LABS: Lactic Acid Reflex 1.3 mmol/L (0.7-2.0)
[2025-02-14 13:23] LABS: Alanine Aminotransferase 82 U/L (6-35); Albumin Level 3.1 g/dL (3.5-5.1); Alkaline Phosphatase 114 U/L (38-126); Anion Gap 12 mmol/L (4-12); Aspartate Amino Transferase 54 U/L (14-36); Bilirubin,Total 0.7 mg/dL (0.2-1.3); Blood Urea Nitrogen 67 mg/dL (7-17); Calcium 8.1 mg/dL (8.4-10.2); Carbon Dioxide 23 mmol/L (22-30); Chloride 94 mmol/L (98-107); Estimated CRCL calculation 6 ml/min; Estimated Glomerular Filt Rate 5; Glucose 147 mg/dL (65-110); Lipase 40 U/L (23-300); Potassium 4.4 mmol/L (3.4-5.0); Sodium 129 mmol/L (137-145)
[2025-02-14 13:28] LABS: INR 1.2; Partial Thromboplastin Time 21.9 Seconds (22.3-36.8)
[2025-02-14 13:41] LABS: Troponin I 0.012 ng/mL (0.000-0.034)
[2025-02-14] MEDS: SODIUM CHLORIDE 0.9% IV 1,000 ML 999 ML IV CONT (14:33)
[2025-02-14 15:44] LABS: CRP 22.5 mg/dL (<1.0)
[2025-02-14] MEDS: cefTRIAXone 2 GM/NS 100 ML 2 GM/100 ML BAG IVPB (17:18)
[2025-02-14 17:20] VITALS: BP 171/90; PULSE 92; RESP 18; O2SAT 92
--- NOTE | 2025-02-14 18:44 | ADMGEN ---
This patient, Brandy Casey, was admitted to 3 [facility] Room 319-01. Patient/family oriented to hospital policies and general routines including ID bracelet, bed and alarms, visiting hours, pain management, procedures, bathroom and other care routines, personal items, smoking policy, room service/diet, and visiting hours. Information on how to activate the Rapid Response Team has been discussed. Patient/Family are encouraged to report perceived risks to care and to ask questions if they do not understand what they are told or what they should do.
[2025-02-14 18:45] VITALS: BMI 29.9
[2025-02-14 20:04] LABS: Glucose Point of Care 222 mg/dl (65-105)
--- NOTE | 2025-02-14 20:40 | P.HP_ITS ---
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 The patient indicates during my discussion that her pain was in the left lower abdomen and left upper abdomen but could not vocalize this. She had some difficulty with word finding. She states that this is not unusual when she becomes ill. She reports that she frequently has loose stools due to the medications she takes for hyperkalemia. She had been reporting blood in her urine to the ER staff that started on the . Her reported that the patient had been having episodes of confusion for the last 24 hours. Her blood sugars have been higher than usual due to a recent cortisone injection in her shoulder. Review of Systems 2 Review of Systems: Review of systems was attempted but limited due to patient's encephalopathy. [facility] Past Medical History Medical History (Updated 02/14/25 @ 21:29 by Naima Saldana DO) Cardiomyopathy Chronic hyponatremia CKD (chronic kidney disease) Patient on peritoneal dialysis HTN (hypertension) Type 2 diabetes mellitus Thrombocytopenia Chronic anemia Cytomegalovirus Gastroesophageal reflux disease Hypertension Wilm's tumor of right kidney Right kidney resected as a child Arthritis Hyperlipidemia Renal transplant recipient Kidney transplant 2018 with transplant failure 2021. Transient hemodialysis now on peritoneal dialysis Surgical History Surgical History (Updated 02/14/25 @ 21:21 by Naima Saldana DO) History of hysterectomy History of cholecystectomy History of appendectomy History of renal transplant (09/2018) With subsequent failure of transplant 2021 History of right nephrectomy As a child for Wilms tumor. Family History Family History Mother Family history of thyroid disease Family history of osteoporosis Depression Hypertension Family history of elevated blood lipids Family history of arthritis Family history of chronic obstructive pulmonary disease Family history of Alzheimer's disease Family history of atrial fibrillation Sibling Family history of thyroid disease Family history of hypercholesterolemia Hypertension Father Family history of hypercholesterolemia Hypertension Family history of cardiovascular disease Family history of coronary artery disease Social History Social History (Updated 02/14/25 @ 21:19 by Naima Saldana DO) Social History: Surrogate medical decision maker: Mike Carmela, spouse. Code status: Full code. Smoking status: Never smoker Second hand tobacco smoke exposure: No Alcohol intake: never Alcohol use details: Occasional Substance use: never Substance use type: does not use Do You Feel Safe in your Home?: Yes Lack of Transportation: No Lack of Food: Never True Current Housing: I Have Housing Concerned About Future Housing: No Difficulty Paying Gas/Electric Bills: No Difficulty Paying for Meds: No Currently Unemployed: No Education: Associate Degree Difficulty w/ Childcare or Family Care: No Living arrangements: with family Additional living arrangements comments: Lives in [place] with spouse. 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 Spiritual care concerns: No Meds Home Medications and Allergies Home Medications ?Medication ?Instructions ?Recorded ?Confirmed ?Type aspirin 81 mg tablet,delayed 81 mg PO DAILY 10/24/19 02/14/25 History release allopurinol 100 mg tablet 150 mg PO DAILY 07/22/22 02/14/25 History calcitriol 0.25 mcg capsule 0.25 mcg PO DAILY 07/22/22 02/14/25 History cinacalcet 30 mg tablet 60 mg PO .nightly 07/22/22 02/14/25 History cholecalciferol (vitamin D3) 100 100 mcg PO DAILY 08/09/22 02/14/25 History mcg (4,000 unit) tablet metoprolol succinate 50 mg 50 mg PO BID 08/09/22 02/14/25 History tablet,extended release 24 hr bumetanide 2 mg tablet 4 mg PO QAM 12/02/23 02/14/25 History vitamin B complex-vitamin C-folic 1 tablet PO DAILY 12/02/23 02/14/25 History acid 0.8 mg tablet ([place]) cyclobenzaprine 5 mg tablet 5 mg PO TID PRN muscle spasm 01/15/24 02/14/25 History trazodone 50 mg tablet 50 mg PO HS 01/15/24 02/14/25 History lansoprazole 30 mg capsule,delayed 30 mg PO BID 07/07/24 02/14/25 History release rosuvastatin 20 mg tablet 20 mg PO DAILY 07/07/24 02/14/25 History sitagliptin phosphate 25 mg tablet 25 mg PO DAILY 07/07/24 02/14/25 History (Januvia) doxazosin 1 mg tablet 4 mg PO QHS 09/25/24 02/14/25 History diltiazem HCl 120 mg capsule,24 120 mg PO QAM 30 days #30 caps 10/02/24 02/14/25 Rx hr,extended release hydroxyzine HCl 10 mg tablet 10 mg PO HS 01/09/25 02/14/25 History ferric citrate 210 mg iron tablet 2 tablet PO BID 02/14/25 02/14/25 History (Auryxia) insulin glargine 100 unit/mL (3 8 unit subcut QPM 02/14/25 02/14/25 History mL) subcutaneous pen (Lantus Solostar U-100 Insulin) insulin lispro 100 unit/mL See Rx Instructions subcut 02/14/25 02/14/25 History subcutaneous pen ACINSULIN Allergies Allergy/AdvReac Type Severity Reaction Status Date / Time amoxicillin Allergy Unknown Rash Verified 02/14/25 10:38 clavulanic acid Allergy Unknown RASH Verified 02/14/25 10:38 fentanyl AdvReac Unknown very Verified 02/14/25 10:38 emotional crying levofloxacin AdvReac Unknown Nausea And Verified 02/14/25 10:38 Vomiting Vital Signs Vital Signs - 24 hr 02/14/25 10:36 02/14/25 17:20 Temperature 98.2 F Pulse Rate 110 H 92 Respiratory Rate 16 18 Blood Pressure 152/86 H 171/90 H Pulse Oximetry 97 92 Exam 2 Narrative: Weight 79 kg BMI 29.9 H&P: Results Labs Labs: Laboratory Tests 02/14/25 12:55 02/14/25 12:55 02/14/25 02/14/25 02/14/25 11:29 12:55 19:57 WBC 16.5 H RBC 3.99 L Hgb 10.9 L D Hct 35.3 L MCV 88.5 MCH 27.3 MCHC 30.9 L RDW 18.4 H Plt Count 136 L D MPV 10.3 Immature Gran % (Auto) 0.9 H Neut % (Auto) 87.0 H Lymph % (Auto) 3.3 L [place] % (Auto) 8.3 Eos % (Auto) 0.3 Baso % (Auto) 0.2 Lymph # (Auto) 0.54 L [place] # (Auto) 1.4 H Eos # (Auto) 0.1 Baso # (Auto) 0.0 Abs Immat Gran (auto) 0.15 H Absolute Neuts (auto) 14.4 H Absolute Nucleated RBC 0.000 Nucleated RBC % 0.0 PT 16.0 H INR 1.2 APTT 21.9 L Sodium 129 L Potassium 4.4 Chloride 94 L Carbon Dioxide 23 Anion Gap 12 BUN 67 H D Creatinine 8.61 H Estim Creat Clear Calc 6 Estimated GFR 5 L Glucose 147 H POC Capillary Glucose 222 H Lactic Acid 1.3 Calcium 8.1 L Total Bilirubin 0.7 AST 54 H ALT 82 H Alkaline Phosphatase 114 Troponin I 0.012 C-Reactive Protein 22.5 H Total Protein 6.0 L Albumin 3.1 L Lipase 40 Urine Color Yellow Urine Appearance Cloudy H Urine pH 7.5 Ur Specific [place] 1.020 Urine Protein 3+ H Urine Glucose (UA) 3+ H Urine Ketones Negative Ur Blood (Man) 3+ H Urine Nitrate Negative Urine Bilirubin Negative Urine Urobilinogen 0.2 Leukocyte Esterase Rfl 1+ H Urine RBC 21-50 H Urine WBC 0-5 Ur Squamous Epith Cells None seen Broad Casts Impressions Abdomen/Pelvis CT 02/14/25 12:35 Impression: Left lower quadrant transplant kidney without hydronephrosis or stone. There is extensive hazy infiltration of the fat at the left transplant hilar region and surrounding mesenteric fat. This is of uncertain etiology. Correlate for infectious or inflammatory process of the transplant kidney. (similar in appearance to when the patient was admitted late August 2024) Somewhat atrophic left [place] kidney with innumerable presumed simple and hyperdense cysts, but no hydronephrosis. Presumed prior right nephrectomy. Moderate abdominopelvic ascites with peritoneal dialysis catheter present. EKG: Test Date: 2025-02-14 12:20:53 Measurements Intervals [place] Rate: 94 P: 29 IN: 170 QRS: -2 QRSD: 85 T: 28 QT: 340 QTc: 425 Interpretive Statements SINUS RHYTHM POSSIBLE LEFT ATRIAL ENLARGEMENT [-0.1mV P WAVE IN V1/V2] POSSIBLE ANTERIOR MYOCARDIAL INFARCTION [30 ms Q WAVE IN V3/V4, OR R < 0.2 mV IN V4], PROBABLY OLD Compared to ECG 09/26/2024 00:49:59 No significant changes All imaging and EKGs personally reviewed and interpreted. And unless stated otherwise agree with radiologic and cardiology interpretation. Assessment and Plan Assessment and plan (1) Pyelonephritis of transplanted kidney: Code(s): T86.19 - Other complication of kidney transplant; N12 - Tubulo-interstitial nephritis, not specified as acute or chronic Status: Acute (2) Patient on peritoneal dialysis: Code(s): Z99.2 - Dependence on renal dialysis Status: Acute (3) Type 2 diabetes mellitus with hyperglycemia, with long-term current use of insulin: Code(s): E11.65 - Type 2 diabetes mellitus with hyperglycemia; Z79.4 - retirement (current) use of insulin Status: Acute (4) End-stage renal disease (ESRD): Code(s): N18.6 - End stage renal disease Status: Acute Plan Patient has abdominal pain with inflammation of her transplanted kidney noted UA does not overtly suggest infection. Patient also is dependent on peritoneal dialysis. Differential includes pyelonephritis versus SBP. Patient been placed on empiric antibiotic therapy with Rocephin 2 g IV daily to cover for either possibility. Patient does have a distant history of ESBL UTI 3 years ago. Urine cultures and blood cultures are pending and orders have been placed for studies on peritoneal fluid. Will repeat CBC in a.m.. Nephrology at [facility] was contacted by ER staff for further recommendations. The patient's patient financial counselor recommended hospitalization here for IV antibiotics for pyelonephritis. The advised the patient receive a steroid Dosepak on discharge and if her symptoms have not improved within the next 2 weeks usual follow-up at the transplant clinic discussed possible removal of the transplanted kidney. Patient is on peritoneal dialysis. Nephrology has been consulted for dialysis management. Electrolyte panel is currently stable. Patient been placed on a renal dialysis diet. Renal function panel is been ordered for a.m.. Patient is hyperglycemic with history of insulin-dependent diabetes. Will resume patient's home Lantus and will place on moderate dose sliding scale insulin with Accu-Cheks a.c. HS and hypoglycemia protocol as needed. Patient has been admitted as observation status. Quality VTE Prophylaxis VTE prophylaxis: pharmacologic ordered (Heparin 5000 units q.12 hours) Hospitalist MIPS Advance Care Plan I have confirmed that the patient's Advanced Care Plan is present, code status is documented, or surrogate decision maker is listed in patient medical record.: Yes Medication Reconciliation I have utilized all available resources to obtain, update and review the patients current medications (includes all prescriptions, OTC, herbals, cannabis, and nutritional supplements).: Yes
[2025-02-14] MEDS: PANTOPRAZOLE 40 MG TABLET PO (21:08)
[2025-02-14] MEDS: hydrOXYzine HCL 10 MG TABLET PO (21:08)
[2025-02-14 21:09] VITALS: PULSE 100
[2025-02-14] MEDS: CENTRAL LINE FLUSH 10 ML IV PUSH (21:09)
[2025-02-14] MEDS: DOXAZOSIN MESYLATE 4 MG TABLET PO (21:09)
[2025-02-14] MEDS: traZODone HCL 50 MG TABLET PO (21:09)
[2025-02-14] MEDS: METOPROLOL SUCCINATE EXT REL 50 MG TABCR PO (21:09)
[2025-02-14] MEDS: CINACALCET 30 MG TABLET 60 MG PO (21:10)
[2025-02-14 22:00] VITALS: BP 153/83; PULSE 77; RESP 20; TEMP 35.9; O2SAT 95
[2025-02-14 23:54] LABS: Glucose Point of Care 200 mg/dl (65-105)
[2025-02-15] VITALS (7 sets, daily range): BP systolic 136–161; BP diastolic 79–95; PULSE 76–99; RESP 16–20; TEMP 36–37.9; O2SAT 94–96
[2025-02-15] MEDS: INSULIN GLARGINE (*BKC) 100 UNITS/ML 8 UNITS SUB-Q ×2 (00:16→17:38)
[2025-02-15] MEDS: CENTRAL LINE FLUSH 10 ML IV PUSH ×3 (06:22→21:31)
[2025-02-15 06:31] LABS: Basophils Percent Auto 0.1 % (0.2-1.2); Eosinophils Percent Auto 0.2 % (0-4.4); Hematocrit 31.5 % (37.0-47.0); Immature Granulocyte Absolute 0.09 K/mm3 (0.00-0.031); Immature Granulocyte Percent A 0.7 % (0-0.5); Lymphocytes Absolute Auto 0.36 K/mm3 (0.9-3.2); Lymphocytes Percent Auto 2.7 % (18.3-44.2); Mean Corpuscular HGB Conc 31.7 g/dl (32-36); Mean Corpuscular Hemoglobin 27.9 pg (26-34); Mean Corpuscular Volume 87.7 fl (80-100); Mean Platelet Volume 10.3 fl (7.4-10.4); Monocytes Absolute Auto 0.7 K/mm3 (0.1-0.6); Monocytes Percent Auto 5.5 % (2.6-8.5); Neutrophils Absolute Auto 11.9 K/mm3 (1.3-6.7); Neutrophils Percent Auto 90.8 % (45.5-73.1); Nucleated Red Blood Cells Perc 0.2 % (0.0-0.2); Platelet Count Result 114 k/mm3 (150-375); Red Blood Count 3.59 M/mm3 (4.2-5.4); Red Cell Distribution Width 18.6 % (11.5-14.5); White Blood Count 13.1 K/mm3 (4.5-10.0)
[2025-02-15 06:39] LABS: Alanine Aminotransferase 49 U/L (6-35); Albumin Level 2.6 g/dL (3.5-5.1); Alkaline Phosphatase 133 U/L (38-126); Anion Gap 14 mmol/L (4-12); Aspartate Amino Transferase 28 U/L (14-36); Bilirubin,Total 0.5 mg/dL (0.2-1.3); Blood Urea Nitrogen 67 mg/dL (7-17); Calcium 7.2 mg/dL (8.4-10.2); Carbon Dioxide 20 mmol/L (22-30); Chloride 96 mmol/L (98-107); Estimated CRCL calculation 6 ml/min; Estimated Glomerular Filt Rate 4; Glucose 167 mg/dL (65-110); Magnesium 1.3 mg/dL (1.6-2.3); Phosphorus 8.8 mg/dL (2.5-4.5); Potassium 4.6 mmol/L (3.4-5.0); Sodium 130 mmol/L (137-145)
[2025-02-15 07:44] LABS: Glucose Point of Care 182 mg/dl (65-105)
[2025-02-15 08:24] LABS: Hepatitis B Surface Antigen Negative (Negative)
[2025-02-15 08:42] LABS: Hepatitis B Surface Anti Res Positive
[2025-02-15] MEDS: CHOLECALCIFEROL 1,000 UNITS TABLET 4000 UNITS PO (09:31)
[2025-02-15] MEDS: BUMETANIDE 1 MG TABLET 4 MG PO (09:32)
[2025-02-15] MEDS: ASPIRIN 81 MG ENTERIC TABLET PO (09:32)
[2025-02-15] MEDS: dilTIAZem HCL CD 120 MG CAP.24HR PO (09:32)
[2025-02-15] MEDS: PANTOPRAZOLE 40 MG TABLET PO ×2 (09:32→21:31)
[2025-02-15] MEDS: allopurinoL 150 MG TABLET PO (09:32)
[2025-02-15] MEDS: ROSUVASTATIN 20 MG TABLET PO (09:32)
[2025-02-15] MEDS: calcitrioL 0.25 MCG CAPSULE PO (09:32)
[2025-02-15] MEDS: VITAMIN B CMPLX/VIT C/FOLIC AC 1 CAPSULE 1 CAP PO (09:33)
[2025-02-15] MEDS: METOPROLOL SUCCINATE EXT REL 50 MG TABCR PO ×2 (09:33→21:31)
[2025-02-15] MEDS: HEPARIN SODIUM 5,000 UNITS/ML VIAL 5000 UNITS SUB-Q ×2 (09:33→21:31)
--- NOTE | 2025-02-15 11:18 | P.PNIM_ITS ---
Progress Note: A&P Assessment and Plan (1) Pyelonephritis of transplanted kidney: Code(s): T86.19 - Other complication of kidney transplant; N12 - Tubulo-interstitial nephritis, not specified as acute or chronic Status: Acute (2) Patient on peritoneal dialysis: Code(s): Z99.2 - Dependence on renal dialysis Status: Acute (3) Type 2 diabetes mellitus with hyperglycemia, with long-term current use of insulin: Code(s): E11.65 - Type 2 diabetes mellitus with hyperglycemia; Z79.4 - correction (current) use of insulin Status: Acute (4) End-stage renal disease (ESRD): Code(s): N18.6 - End stage renal disease Status: Acute Plan Patient has abdominal pain with inflammation of her transplanted kidney noted UA does not overtly suggest infection. 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 The advised the pat ient receive a steroid Dosepak on discharge and if her symptoms have not improved within the next 2 weeks usual follow-up at the transplant clinic -Nephrology has been consulted for dialysis management - Electrolyte panel is currently stable, trend daily - renal diet Patient is hyperglycemic with history of insulin-dependent diabetes. -resume patient's home Lantus, moderate dose sliding scale insulin with Accu- Cheks a.c. 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 Pt is seen and examined. Nephrology consulted. Pt is on IV ceftriaxone. not much appetite. Review of Systems Review of Systems: Review of systems was attempted but limited due to patient's encephalopathy. Exam Narrative: Weight 79 kg BMI 29.9 Const: General: comfortable Other: calm Resp: Effort & Inspection: normal respiratory effort Auscultation: clear to auscultation bilaterally Cardio: Rate: regular rate Rhythm: regular rhythm GI: GI Palp: Yes Tenderness to palpation present (GI) Neuro: Other: a/o x 3 Psych: Other: flat affect Objective Data Vital Signs Vital Signs: Vital Signs - 24 hr 02/14/25 17:20 02/14/25 20:00 02/14/25 21:09 Temperature Pulse Rate 92 100 Respiratory Rate 18 Blood Pressure 171/90 H Pulse Oximetry 92 Oxygen Delivery Room Air 02/14/25 22:00 02/15/25 06:00 02/15/25 09:15 Temperature 96.6 F L 96.8 F L Pulse Rate 77 76 Respiratory Rate 20 18 Blood Pressure 153/83 H 151/79 H Pulse Oximetry 95 96 Oxygen Delivery Room Air Intake/Output Intake/Output: Intake & Output 02/12/25 02/13/25 02/14/25 02/15/25 23:59 23:59 23:59 23:59 Intake Total 1600 300 Balance 1600 300 Meds/Results Medications: Active Medications Generic Name Dose Route Start Last Admin Trade Name Freq PRN Reason Stop Dose Admin Acetaminophen 650 mg 02/14/25 23:48 Acetaminophen 325 Mg Tablet PO Q4H PRN Mild Pain (1-3) or Fever Allopurinol 150 mg 02/15/25 09:00 02/15/25 09:32 Allopurinol 150 Mg Tablet PO 150 mg DAILY JENNIFER Administration Aspirin 81 mg 02/15/25 09:00 02/15/25 09:32 Aspirin 81 Mg Enteric Tablet PO 81 mg DAILY JENNIFER Administration Bumetanide 4 mg 02/15/25 09:00 02/15/25 09:32 Bumetanide 1 Mg Tablet PO 4 mg QAM JENNIFER Administration Calcitriol 0.25 mcg 02/15/25 09:00 02/15/25 09:32 Calcitriol 0.25 Mcg Capsule PO 0.25 mcg DAILY JENNIFER Administration Cinacalcet 60 mg 02/14/25 20:45 02/14/25 21:10 Cinacalcet 30 Mg Tablet PO 60 mg QPM JENNIFER Administration Dextrose 12.5 gm 02/14/25 21:25 Dextrose 50% 25 Gm/50 Ml Syringe IV PUSH PRN PRN Hypoglycemia Protocol Diltiazem HCl 120 mg 02/15/25 09:00 02/15/25 09:32 Diltiazem Hcl Cd 120 Mg Cap.24hr PO 120 mg QAM JENNIFER Administration Doxazosin Mesylate 4 mg 02/14/25 21:00 02/14/25 21:09 Doxazosin Mesylate 4 Mg Tablet PO 4 mg QHS JENNIFER Administration Glucagon 1 mg 02/14/25 21:25 Glucagon For Inj 1 Mg Vial IM PRN PRN Hypoglycemia Protocol Glucose 15 gm 02/14/25 21:25 Glucose Oral Gel 15 Gm Of Glucse In 37.5 Gm Tube PO PRN PRN Hypoglycemia Protocol Heparin Sodium (Beef Lung) 50 units 02/15/25 09:00 02/15/25 09:33 Heparin Flush 50 Units/5 Ml Syringe IV PUSH 50 units QAM JENNIFER Administration Heparin Sodium (Beef Lung) 50 units 02/14/25 15:30 Heparin Flush 50 Units/5 Ml Syringe IV PUSH PRN PRN after intermittent infusion Heparin Sodium (Beef Lung) 50 units 02/14/25 15:30 Heparin Flush 50 Units/5 Ml Syringe IV PUSH PRN PRN after blood draws Heparin Sodium (Porcine) 500 units 02/14/25 15:30 Heparin Sodium Lock Flush 500 Units/5 Ml Syringe IV PUSH PRN PRN see comments below Heparin Sodium (Porcine) 5,000 units 02/15/25 09:00 02/15/25 09:33 Heparin Sodium 5,000 Units/Ml Vial SUB-Q 5,000 units Q12HR JENNIFER Administration Hydroxyzine HCl 10 mg 02/14/25 21:00 02/14/25 21:08 Hydroxyzine Hcl 10 Mg Tablet PO 10 mg HS JENNIFER Administration Ceftriaxone Sodium 2 gm in 100 mls @ 200 mls/hr 02/15/25 17:00 Rocephin 2 Gm/Ns 100 Ml IVPB Q24H JENNIFER Dextrose 1,000 mls @ 100 mls/hr 02/14/25 21:25 Dextrose 5% 1,000 Ml IVPB PRN PRN Hypoglycemia Protocol Insulin Aspart 3 - 6 units 02/15/25 08:00 02/15/25 07:54 Insulin Aspart (*Bkc) 100 Units/Ml SUB-Q Not Given TIDWM JENNIFER Protocol Insulin Aspart 1 - 3 units 02/14/25 21:35 02/15/25 00:13 Insulin Aspart (*Bkc) 100 Units/Ml SUB-Q Not Given HS [facility] Protocol Insulin Glargine 8 units 02/14/25 21:25 02/15/25 00:16 Insulin Glargine (*Bkc) 100 Units/Ml SUB-Q 8 units QPM JENNIFER Administration Metoprolol Succinate 50 mg 02/14/25 21:00 02/15/25 09:33 Metoprolol Succinate Ext Rel 50 Mg Tabcr PO 50 mg Q12HR JENNIFER Administration Miscellaneous Information 1 each 02/15/25 00:01 Auryxia Is Nonform; Can Pt Use From Home? XX 03/17/25 00:00 CLARIFY [facility] Non-Formulary Medication 2 tablet 02/15/25 09:00 Ferric Citrate [Auryxia] PO 03/17/25 08:59 BID JENNIFER Pantoprazole Sodium 40 mg 02/14/25 21:00 02/15/25 09:32 Pantoprazole 40 Mg Tablet PO 40 mg Q12HR JENNIFER Administration Rosuvastatin Calcium 20 mg 02/15/25 09:00 02/15/25 09:32 Rosuvastatin 20 Mg Tablet PO 20 mg DAILY JENNIFER Administration Sodium Chloride 10 ml 02/14/25 22:00 02/15/25 06:22 Central Line Flush IV PUSH 10 ml Q8HR JENNIFER Administration Trazodone HCl 50 mg 02/14/25 21:00 02/14/25 21:09 Trazodone Hcl 50 Mg Tablet PO 50 mg HS JENNIFER Administration Vitamin B Complex/Folic Acid 1 cap 02/15/25 09:00 02/15/25 09:33 Vitamin B Cmplx/Vit C/Folic Ac 1 Capsule PO 1 cap DAILY JENNIFER Administration Vitamin D 4,000 units 02/15/25 09:00 02/15/25 09:31 Cholecalciferol 1,000 Units Tablet PO 4,000 units DAILY JENNIFER Administration Radiology Results: ITS Impressions Abdomen/Pelvis CT 02/14/25 12:35 Impression: Left lower quadrant transplant kidney without hydronephrosis or stone. There is extensive hazy infiltration of the fat at the left transplant hilar region and surrounding mesenteric fat. This is of uncertain etiology. Correlate for infectious or inflammatory process of the transplant kidney. Somewhat atrophic left [place] kidney with innumerable presumed simple and hyperd ense cysts, but no hydronephrosis. Presumed prior right nephrectomy. Moderate abdominopelvic ascites with peritoneal dialysis catheter present. Labs Labs: Laboratory Results - last 24 hr 02/14/25 02/14/25 02/14/25 11:29 12:55 19:57 WBC 16.5 H RBC 3.99 L Hgb 10.9 L D Hct 35.3 L MCV 88.5 MCH 27.3 MCHC 30.9 L RDW 18.4 H Plt Count 136 L D MPV 10.3 Immature Gran % (Auto) 0.9 H Neut % (Auto) 87.0 H Lymph % (Auto) 3.3 L Smith % (Auto) 8.3 Eos % (Auto) 0.3 Baso % (Auto) 0.2 Lymph # (Auto) 0.54 L Smith # (Auto) 1.4 H Eos # (Auto) 0.1 Baso # (Auto) 0.0 Abs Immat Gran (auto) 0.15 H Absolute Neuts (auto) 14.4 H Absolute Nucleated RBC 0.000 Nucleated RBC % 0.0 PT 16.0 H INR 1.2 APTT 21.9 L Sodium 129 L Potassium 4.4 Chloride 94 L Carbon Dioxide 23 Anion Gap 12 BUN 67 H D Creatinine 8.61 H Estim Creat Clear Calc 6 Estimated GFR 5 L Glucose 147 H POC Capillary Glucose 222 H Lactic Acid 1.3 Calcium 8.1 L Phosphorus Magnesium Total Bilirubin 0.7 AST 54 H ALT 82 H Alkaline Phosphatase 114 Troponin I 0.012 C-Reactive Protein 22.5 H Total Protein 6.0 L Albumin 3.1 L Lipase 40 Urine Color Yellow Urine Appearance Cloudy H Urine pH 7.5 Ur Specific [employer] 1.020 Urine Protein 3+ H Urine Glucose (UA) 3+ H Urine Ketones Negative Ur Blood (Man) 3+ H Urine Nitrate Negative Urine Bilirubin Negative Urine Urobilinogen 0.2 Leukocyte Esterase Rfl 1+ H Urine RBC 21-50 H Urine WBC 0-5 Ur Squamous Epith Cells None seen Broad Casts Hep Bs Antigen Hep Bs Antibody 02/14/25 02/15/25 02/15/25 23:50 06:20 07:28 WBC 13.1 H RBC 3.59 L Hgb 10.0 L Hct 31.5 L MCV 87.7 MCH 27.9 MCHC 31.7 L RDW 18.6 H Plt Count 114 L MPV 10.3 Immature Gran % (Auto) 0.7 H Neut % (Auto) 90.8 H Lymph % (Auto) 2.7 L Smith % (Auto) 5.5 Eos % (Auto) 0.2 Baso % (Auto) 0.1 L Lymph # (Auto) 0.36 L Smith # (Auto) 0.7 H Eos # (Auto) 0.0 Baso # (Auto) 0.0 Abs Immat Gran (auto) 0.09 H Absolute Neuts (auto) 11.9 H Absolute Nucleated RBC 0.020 H Nucleated RBC % 0.2 PT INR APTT Sodium 130 L Potassium 4.6 Chloride 96 L Carbon Dioxide 20 L Anion Gap 14 H BUN 67 H Creatinine 9.25 H Estim Creat Clear Calc 6 Estimated GFR 4 L Glucose 167 H POC Capillary Glucose 200 H Lactic Acid Calcium 7.2 L Phosphorus 8.8 H Magnesium 1.3 L Total Bilirubin 0.5 AST 28 ALT 49 H Alkaline Phosphatase 133 H Troponin I C-Reactive Protein Total Protein 5.0 L Albumin 2.6 L Lipase Urine Color Urine Appearance Urine pH Ur Specific [employer] Urine Protein Urine Glucose (UA) Urine Ketones Ur Blood (Man) Urine Nitrate Urine Bilirubin Urine Urobilinogen Leukocyte Esterase Rfl Urine RBC Urine WBC Ur Squamous Epith Cells Broad Casts Hep Bs Antigen Negative Hep Bs Antibody Positive 02/15/25 07:35 WBC RBC Hgb Hct MCV MCH MCHC RDW Plt Count MPV Immature Gran % (Auto) Neut % (Auto) Lymph % (Auto) Smith % (Auto) Eos % (Auto) Baso % (Auto) Lymph # (Auto) Smith # (Auto) Eos # (Auto) Baso # (Auto) Abs Immat Gran (auto) Absolute Neuts (auto) Absolute Nucleated RBC Nucleated RBC % PT INR APTT Sodium Potassium Chloride Carbon Dioxide Anion Gap BUN Creatinine Estim Creat Clear Calc Estimated GFR Glucose POC Capillary Glucose 182 H Lactic Acid Calcium Phosphorus Magnesium Total Bilirubin AST ALT Alkaline Phosphatase Troponin I C-Reactive Protein Total Protein Albumin Lipase Urine Color Urine Appearance Urine pH Ur Specific [employer] Urine Protein Urine Glucose (UA) Urine Ketones Ur Blood (Man) Urine Nitrate Urine Bilirubin Urine Urobilinogen Leukocyte Esterase Rfl Urine RBC Urine WBC Ur Squamous Epith Cells Broad Casts Hep Bs Antigen Hep Bs Antibody Quality VTE Prophylaxis VTE prophylaxis: pharmacologic ordered (Heparin 5000 units q.12 hours)
--- NOTE | 2025-02-15 11:52 | P.CONNP_ITS ---
Assessment and Plan Assessment and plan (1) End stage renal disease: Code(s): N18.6 - End stage renal disease Status: Chronic Assessment and Plan: * continue nightly CCPD while hospitalized * follow electrolytes, volume status, and clearance * adjust PD presciption as needed (2) Pyelonephritis of transplanted kidney: Code(s): T86.19 - Other complication of kidney transplant; N12 - Tubulo-interstitial nephritis, not specified as acute or chronic Status: Acute Assessment and Plan: * suspected based on imaging findings * UA results noted * follow-up on culture data * check PD fluid to r/o peritonitis * check transplant kidney ultrasound (if able) * on antibiotics (3) Left sided abdominal pain: Code(s): R10.9 - Unspecified abdominal pain Status: Acute Assessment and Plan: * presumed etiology due to #2 * possible component of peritonitis?? * pain control * continue antibiotics * follow clinical symptoms (4) Chronic anemia: Code(s): D64.9 - Anemia, unspecified Status: Chronic Assessment and Plan: * due to ESRD * will likely need DANE/Epogen while hospitalized * however, acute illness/infection may limit effectiveness of DANE * follow trend of H/H (5) Hypertension: Qualifiers: Hypertension type: primary hypertension Qualified Code(s): I10 - Essential (primary) hypertension Code(s): I10 - Essential (primary) hypertension Status: Chronic Assessment and Plan: * reasonable control at this time * follow trend of hemodynamics (6) Type 2 diabetes mellitus: Qualifiers: Chronic kidney disease stage: on chronic dialysis Diabetes mellitus complication detail: with chronic kidney disease Diabetes mellitus complication status: with kidney complications 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 Thank you for allowing me to participate in the care of this patient. L History of Present Illness Reason for Consult Consult date: 02/15/25 Reason for consult: end stage renal disease Chief Complaint Chief complaint: concern for peritonitis, pylonephritis History of Present Illness Narrative: The patient is a 65-year-old female with a past medical history as outlined below who presented to [facility] due to abdominal pain. The patient states that her abdominal pain seems to be localized to the left side of her abdomen both in the upper and lower quadrant. this pain is somewhat complicated for her to elaborate as whenever she has an acute illness, she usually has issues with her mentation as well. Is difficult to ascertain how long this abdominal pain has been present and when it started but she does state that associated symptoms of blood in her urine a couple of days ago. Her also confirms episodes of confusion in the last 24 hours as well. Furthermore, the patient is also noted to have issues with hyperglycemia in the last day or so but she attributes this to a recent steroid injection in her left shoulder for severe degenerative joint disease/pain management. Interestingly, she was just seen by Dr. Hope and her outpatient peritoneal dialysis nurse on (02/13/25) for her monthly outpatient peritoneal dialysis clinic visit and at that time, she had been doing reasonably well and per my discussion with the outpatient PD nurse, the patient did not have any complaints with regard to abdominal pain at that time. In any case, due to the symptoms as mentioned, she presented to the ER for further assessment. Workup and evaluation emergency room demonstrated the patient be hemodynamically stable and afebrile. Routine blood work was significant for an elevated white blood cell count of 16.5, stable anemia, and a chemistry panel that was consistent with her known history of end-stage renal disease without any critical electrolyte abnormalities. Her urinalysis was significant for 3+ protein, 3+ glucose, 3+ blood, 1+ leukocyte esterase, and 21-50 red blood cell. Due to her complaints of ongoing abdominal pain in conjunction with her history of a failed kidney transplant, she subsequently underwent a CT scan of the abdomen pelvis which demonstrated a left lower quadrant transplant kidney with extensive hazy infiltration of the fat at the left transplant hilar region and surrounding mesenteric fact concerning for possible infection verses and inflammatory process. Given these findings, the orion nephrology fellow was consulted for further advice regarding these findings and was instructed that she should be treated as if this is a case of pyelonephritis and with the plan for a possible steroid taper after discharge with the consideration for possible surgical intervention with regard to her failed transplant kidney if she continues to be symptomatic. After appropriate cultures were obtained, she was initiated on IV antibiotics and subsequently admitted to the hospital for further evaluation and therapy. Since her admission, her mentation seems to improved although continues to wax and wane according to her . She still continues to have left-sided abdominal pain and she was unable to receive her peritoneal dialysis treatment yesterday evening due to the lateness of when she got to a hospital room. Renal consultation was requested due to her end-stage renal disease. 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 Then in 2016, she developed urosepsis and had left over chronic kidney disease following that insult to her remaining kidney. Her chronic kidney disease progressed until eventually in 2018, she underwent a living related kidney transplantation with the donor being her . Unfortunately, in early 2021, her kidney transplant failed and she had to be started on dialysis. She was on hemodialysis on a Monday, Monday, Monday dialysis schedule under the care of Dr. Quintin Hope at [facility]. She was then transitioned to peritoneal dialysis through [facility] and Dr. Hope continues to follow her for management of her end-stage renal disease. From a peritoneal dialysis perspective, she has been doing reasonably well with relative stability in her monthly labs although she does have some issues and problems with blood pressure control requiring further adjustment of these medications Currently, at the time my evaluation, she does not appear to be any acute distress but continues to have issues/ problems with left-sided abdominal pain. Review of Systems 2 Review of Systems: As per HPI. [facility] Past Medical History Medical History (Updated 02/15/25 @ 18:04 by Poncho Gardiner MD) Chronic hyponatremia Cardiomyopathy CKD (chronic kidney disease) Patient on peritoneal dialysis HTN (hypertension) Type 2 diabetes mellitus Thrombocytopenia Chronic anemia Cytomegalovirus Gastroesophageal reflux disease Hypertension Wilm's tumor of right kidney Right kidney resected as a child Arthritis Hyperlipidemia Renal transplant recipient Kidney transplant 2018 with transplant failure 2021. Transient hemodialysis now on peritoneal dialysis Surgical History Surgical History (Updated 02/14/25 @ 21:21 by Naima Saldana DO) History of hysterectomy History of cholecystectomy History of appendectomy History of renal transplant (09/2018) With subsequent failure of transplant 2021 History of right nephrectomy As a child for Wilms tumor. Family History Family History Mother Family history of thyroid disease Family history of osteoporosis Depression Hypertension Family history of elevated blood lipids Family history of arthritis Family history of chronic obstructive pulmonary disease Family history of Alzheimer's disease Family history of atrial fibrillation Sibling Family history of thyroid disease Family history of hypercholesterolemia Hypertension Father Family history of hypercholesterolemia Hypertension Family history of cardiovascular disease Family history of coronary artery disease Social History Social History (Updated 02/14/25 @ 21:19 by Namia Saldana DO) Social History: Surrogate medical decision maker: Mike Casey, spouse. Code status: Full code. Smoking status: Never smoker Second hand tobacco smoke exposure: No Alcohol intake: never Alcohol use details: Occasional Substance use: never Substance use type: does not use Do You Feel Safe in your Home?: Yes Lack of Transportation: No Lack of Food: Never True Current Housing: I Have Housing Concerned About Future Housing: No Difficulty Paying Gas/Electric Bills: No Difficulty Paying for Meds: No Currently Unemployed: No Education: Associate Degree Difficulty w/ Childcare or Family Care: No Living arrangements: with family Additional living arrangements comments: Lives in [place] with spouse. 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 Spiritual care concerns: No Meds Home Medications and Allergies Home Medications ?Medication ?Instructions ?Recorded ?Confirmed ?Type aspirin 81 mg tablet,delayed 81 mg PO DAILY 10/24/19 02/14/25 History release allopurinol 100 mg tablet 150 mg PO DAILY 07/22/22 02/14/25 History calcitriol 0.25 mcg capsule 0.25 mcg PO DAILY 07/22/22 02/14/25 History cinacalcet 30 mg tablet 60 mg PO .nightly 07/22/22 02/14/25 History cholecalciferol (vitamin D3) 100 100 mcg PO DAILY 08/09/22 02/14/25 History mcg (4,000 unit) tablet metoprolol succinate 50 mg 50 mg PO BID 08/09/22 02/14/25 History tablet,extended release 24 hr bumetanide 2 mg tablet 4 mg PO QAM 12/02/23 02/14/25 History vitamin B complex-vitamin C-folic 1 tablet PO DAILY 12/02/23 02/14/25 History acid 0.8 mg tablet ([place]) cyclobenzaprine 5 mg tablet 5 mg PO TID PRN muscle spasm 01/15/24 02/14/25 History trazodone 50 mg tablet 50 mg PO HS 01/15/24 02/14/25 History lansoprazole 30 mg capsule,delayed 30 mg PO BID 07/07/24 02/14/25 History release rosuvastatin 20 mg tablet 20 mg PO DAILY 07/07/24 02/14/25 History sitagliptin phosphate 25 mg tablet 25 mg PO DAILY 07/07/24 02/14/25 History (Januvia) doxazosin 1 mg tablet 4 mg PO QHS 09/25/24 02/14/25 History diltiazem HCl 120 mg capsule,24 120 mg PO QAM 30 days #30 caps 10/02/24 02/14/25 Rx hr,extended release hydroxyzine HCl 10 mg tablet 10 mg PO HS 01/09/25 02/14/25 History ferric citrate 210 mg iron tablet 2 tablet PO BID 02/14/25 02/14/25 History (Auryxia) insulin glargine 100 unit/mL (3 8 unit subcut QPM 02/14/25 02/14/25 History mL) subcutaneous pen (Lantus Solostar U-100 Insulin) insulin lispro 100 unit/mL See Rx Instructions subcut 02/14/25 02/14/25 History subcutaneous pen ACINSULIN Allergies Allergy/AdvReac Type Severity Reaction Status Date / Time amoxicillin Allergy Unknown Rash Verified 02/14/25 10:38 clavulanic acid Allergy Unknown RASH Verified 02/14/25 10:38 fentanyl AdvReac Unknown very Verified 02/14/25 10:38 emotional crying levofloxacin AdvReac Unknown Nausea And Verified 02/14/25 10:38 Vomiting Vital Signs Vital Signs Temp Pulse Resp BP Pulse Ox O2 Del Method 02/15/25 09:15 Room Air 02/15/25 06:00 96.8 F L 76 18 151/79 H 96 02/14/25 22:00 96.6 F L 77 20 153/83 H 95 02/14/25 21:09 100 02/14/25 20:00 Room Air 02/14/25 17:20 92 18 171/90 H 92 Exam 2 Narrative: GENERAL APPEARANCE: well developed well nourished female in no acute distress HEENT: normocephalic, atraumatic, normal conjunctiva and sclera, nares patient NECK: no lymphadenopathy, thyromegaly, or JVD MOUTH: normal lips, teeth, and gums CARDIOVASCULAR: RRR, normal S1 and S2, no rub RESPIRATORY: clear anteriorly ABDOMEN: signifcant tenderness in LLQ; positive bowel sounds present EXTREMITIES: no evidence of cyanosis, clubbing, or edema NEUROLOGICAL: alert and oriented x 3; CN II - XII intact bilaterally; no focal deficits noted Results Lab Results 02/16/25 06:06 02/16/25 06:06 Lab results: Most recent lab results Calcium 7.2 mg/dL (8.4-10.2) L 02/15/25 06:20 Phosphorus 8.8 mg/dL (2.5-4.5) H 02/15/25 06:20 Magnesium 1.3 mg/dL (1.6-2.3) L 02/15/25 06:20
[2025-02-15 12:29] LABS: Glucose Point of Care 141 mg/dl (65-105)
[2025-02-15 16:32] LABS: Glucose Point of Care 317 mg/dl (65-105)
[2025-02-15] MEDS: INSULIN ASPART (*BKC) 100 UNITS/ML SUB-Q ×2 (16:49→21:30)
[2025-02-15] MEDS: CINACALCET 30 MG TABLET 60 MG PO (16:50)
[2025-02-15] MEDS: cefTRIAXone 2 GM/NS 100 ML 2 GM/100 ML BAG IVPB (16:50)
[2025-02-15] MEDS: ACETAMINOPHEN 325 MG TABLET 650 MG PO ×2 (17:09→21:40)
[2025-02-15 17:28] LABS: Source Peritoneal Fluid Peritoneal Fluid
[2025-02-15 17:31] LABS: Appearance Peritoneal Fluid Hazy (Clear)
[2025-02-15 17:32] LABS: Color Peritoneal Fluid Yellow (Colorless)
[2025-02-15 17:33] LABS: Lymphocytes Peritoneal Fluid 19 %; Macrophages Peritoneal Fluid 1 %; Monocytes Peritoneal Fluid 48 %; Neutrophils Peritoneal Fluid 32 % (0-25); Nucleated Cells Peritoneal Flu 806 /uL (0-500); RBC Peritoneal Fluid 7000 /uL (0-10000)
[2025-02-15 19:22] LABS: Glucose Point of Care 324 mg/dl (65-105)
[2025-02-15] MEDS: hydrOXYzine HCL 10 MG TABLET PO (21:31)
[2025-02-15] MEDS: DOXAZOSIN MESYLATE 4 MG TABLET PO (21:31)
[2025-02-15] MEDS: traZODone HCL 50 MG TABLET PO (21:31)
[2025-02-16] VITALS (9 sets, daily range): BP systolic 126–192; BP diastolic 84–91; PULSE 89–114; RESP 16–20; TEMP 36.9–37.7; O2SAT 93–97
[2025-02-16] MEDS: ACETAMINOPHEN 325 MG TABLET 650 MG PO (06:04)
[2025-02-16] MEDS: CENTRAL LINE FLUSH 10 ML IV PUSH ×2 (06:04→16:00)
[2025-02-16 06:19] LABS: Basophils Percent Auto 0.1 % (0.2-1.2); Eosinophils Percent Auto 0.1 % (0-4.4); Hematocrit 31.6 % (37.0-47.0); Immature Granulocyte Absolute 0.06 K/mm3 (0.00-0.031); Immature Granulocyte Percent A 0.6 % (0-0.5); Lymphocytes Absolute Auto 0.19 K/mm3 (0.9-3.2); Mean Corpuscular HGB Conc 31.6 g/dl (32-36); Mean Corpuscular Hemoglobin 27.5 pg (26-34); Mean Corpuscular Volume 87.1 fl (80-100); Mean Platelet Volume 10.2 fl (7.4-10.4); Monocytes Absolute Auto 0.5 K/mm3 (0.1-0.6); Monocytes Percent Auto 5.2 % (2.6-8.5); Neutrophils Absolute Auto 8.8 K/mm3 (1.3-6.7); Nucleated Red Blood Cells Perc 0.2 % (0.0-0.2); Platelet Count Result 102 k/mm3 (150-375); Red Blood Count 3.63 M/mm3 (4.2-5.4); Red Cell Distribution Width 18.5 % (11.5-14.5); White Blood Count 9.6 K/mm3 (4.5-10.0)
[2025-02-16 06:28] LABS: Alanine Aminotransferase 38 U/L (6-35); Albumin Level 2.7 g/dL (3.5-5.1); Alkaline Phosphatase 163 U/L (38-126); Anion Gap 15 mmol/L (4-12); Aspartate Amino Transferase 27 U/L (14-36); Bilirubin,Total 0.5 mg/dL (0.2-1.3); Blood Urea Nitrogen 67 mg/dL (7-17); Calcium 7.7 mg/dL (8.4-10.2); Carbon Dioxide 20 mmol/L (22-30); Chloride 95 mmol/L (98-107); Estimated CRCL calculation 6 ml/min; Estimated Glomerular Filt Rate 4; Glucose 196 mg/dL (65-110); Sodium 130 mmol/L (137-145)
[2025-02-16 07:31] LABS: Glucose Point of Care 194 mg/dl (65-105)
--- NOTE | 2025-02-16 09:04 | P.PNIM_ITS ---
Progress Note: A&P Assessment and Plan (1) Pyelonephritis of transplanted kidney: Code(s): T86.19 - Other complication of kidney transplant; N12 - Tubulo-interstitial nephritis, not specified as acute or chronic Status: Acute (2) Patient on peritoneal dialysis: Code(s): Z99.2 - Dependence on renal dialysis Status: Acute (3) Type 2 diabetes mellitus with hyperglycemia, with long-term current use of insulin: Code(s): E11.65 - Type 2 diabetes mellitus with hyperglycemia; Z79.4 - care home (current) use of insulin Status: Acute (4) End-stage renal disease (ESRD): Code(s): N18.6 - End stage renal disease Status: Acute Plan Patient has abdominal pain with inflammation of her transplanted kidney noted UA does not overtly suggest infection. Patient also is dependent on peritoneal dialysis - dd dx: pyelonephritis versus SBP - started on Rocephin 2 g IV daily - ESBL UTI 3 years ago- Urine cultures and blood cultures are pending and orders have been placed for studies on peritoneal fluid - trend labs daily Nephrology at [facility] was contacted by ER -The patient's breakfast and room attendant recommended hospitalization here for IV antibiotics for pyelonephritis. The advised the pat ient receive a steroid Dosepak on discharge and if her symptoms have not improved within the next 2 weeks usual follow-up at the transplant clinic -Nephrology has been consulted for dialysis management - Electrolyte panel is currently stable, trend daily - renal diet Patient is hyperglycemic with history of insulin-dependent diabetes. -resume patient's home Lantus, moderate dose sliding scale insulin with Accu- Cheks a.c. HS and hypoglycemia protocol as needed trend BS and adjust as needed 02/16 Last night, spiked fever and developed acute abd pain. Pain med was ordered per evening attending. This morning, still fevers, abd is distended, still pain. Discussed care with breakfast and room attendant and attending, ok to order IV contrast per Dr Gardiner- will repeat CT abd/pelvis. Continue vanc and broaden antibiotics to cefepime-renally dose. Obtain BC. [facility] transfer line was called. Pt is accepted per hospitalist Dr Guo, with nephrology on board- DR Sher. Of note- pt was on hemodialysis for a year-around 2019? but the access kept clotting, PD was started after multiple failed attempts to make HD work. 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 ED provider discussed care with [facility] breakfast and room attendant: [facility] nephrology fellow, Dr Sher, who advised pt be admitted to this hospital for IV antibiotics. He advised pt be treated as though she has pyelonephritis. Dr. Sher advised pt receive Ceftriaxone IV. Once pt is ready for discharge he advised pt receive a steroid dose pack. He reports if pt's symptoms have not improved in two weeks, then she should follow-up in the kidney transplant clinic and they can discuss removal of the kidney. Dr. Sher advised this surgery would not be emergent, so there is no need for pt to be transferred to [facility] for further evaluation Abd/pelvis CT: Left lower quadrant transplant kidney without hydronephrosis or stone. There is extensive hazy infiltration of the fat at the left transplant hilar region and surrounding mesenteric fat. This is of uncertain etiology. Correlate for infectious or inflammatory process of the transplant kidney. Somewhat atrophic left [place] kidney with innumerable presumed simple and hyperdense cysts, but no hydronephrosis. Presumed prior right nephrectomy. Moderate abdominopelvic ascites with peritoneal dialysis catheter present Pt is seen and examined. she was started on vanc and ceftriaxone. Last night, spiked fever and developed acute abd pain. Pian med was ordered per evening attending. This morning, still fevers, abd is distended, still pain. Discussed care with breakfast and room attendant and attending, ok to order IV contrast per Dr Gardiner- will repeat CT abd/pelvis. Continue vanc and broaden antibiotics to cefepime- renally dose. Of note, pt was admitted here in september for sepsis as well. [facility] transfer line was called. Pt is accepted per hospitalist team, DR Guo. Crew Attendant, Dr Sher. Review of Systems Review of Systems: Review of systems was attempted but limited due to patient's encephalopathy. Gastrointestinal: Gastrointestinal: Reports abdominal pain Exam Narrative: Weight 79 kg BMI 29.9 Const: General: uncomfortable Resp: Effort & Inspection: normal respiratory effort Auscultation: clear to auscultation bilaterally Cardio: Rate: regular rate Rhythm: regular rhythm GI: Inspection: distended GI Palp: Yes Tenderness to palpation present (GI) Neuro: Other: a/o x 3 Psych: Other: flat affect Objective Data Vital Signs Vital Signs: Vital Signs - 24 hr 02/15/25 09:15 02/15/25 14:00 02/15/25 20:00 Temperature 98.5 F Pulse Rate 99 93 Respiratory Rate 20 20 Blood Pressure 161/86 H Pulse Oximetry 94 94 Oxygen Delivery Room Air Room Air 02/15/25 21:31 02/15/25 21:40 02/15/25 22:00 Temperature 99.4 F 100.2 F H Pulse Rate 93 93 Respiratory Rate 16 Blood Pressure 136/95 H Pulse Oximetry 96 Oxygen Delivery 02/15/25 22:40 02/16/25 06:00 02/16/25 06:04 Temperature 100.2 F H 100 F H 100 F H Pulse Rate 91 Respiratory Rate 16 Blood Pressure 133/84 Pulse Oximetry 97 Oxygen Delivery 02/16/25 07:04 02/16/25 08:12 Temperature 99.1 F 99.4 F Pulse Rate 89 Respiratory Rate 20 Blood Pressure 126/84 Pulse Oximetry 96 Oxygen Delivery Intake/Output Intake/Output: Intake & Output 02/13/25 02/14/25 02/15/25 02/16/25 23:59 23:59 23:59 23:59 Intake Total 1600 2140 200 Balance 1600 2140 200 Meds/Results Medications: Active Medications Generic Name Dose Route Start Last Admin Trade Name Freq PRN Reason Stop Dose Admin Acetaminophen 650 mg 02/14/25 23:48 02/16/25 06:04 Acetaminophen 325 Mg Tablet PO 650 mg Q4H PRN Administration Mild Pain (1-3) or Fever Hydrocodone Bitart/Acetaminophen 1 tab 02/15/25 17:28 Hydrocodone/Acetaminophen (*Crx) 5-325 Mg Tablet PO Q6H PRN Pain Rated 4-6 Allopurinol 150 mg 02/15/25 09:00 02/15/25 09:32 Allopurinol 150 Mg Tablet PO 150 mg DAILY JENNIFER Administration Aspirin 81 mg 02/15/25 09:00 02/15/25 09:32 Aspirin 81 Mg Enteric Tablet PO 81 mg DAILY JENNIFER Administration Bumetanide 4 mg 02/15/25 09:00 02/15/25 09:32 Bumetanide 1 Mg Tablet PO 4 mg QAM JENNIFER Administration Calcitriol 0.25 mcg 02/15/25 09:00 02/15/25 09:32 Calcitriol 0.25 Mcg Capsule PO 0.25 mcg DAILY JENNIFER Administration Cinacalcet 60 mg 02/14/25 20:45 02/15/25 16:50 Cinacalcet 30 Mg Tablet PO 60 mg QPM JENNIFER Administration Dextrose 12.5 gm 02/14/25 21:25 Dextrose 50% 25 Gm/50 Ml Syringe IV PUSH PRN PRN Hypoglycemia Protocol Diltiazem HCl 120 mg 02/15/25 09:00 02/15/25 09:32 Diltiazem Hcl Cd 120 Mg Cap.24hr PO 120 mg QAM JENNIFER Administration Doxazosin Mesylate 4 mg 02/14/25 21:00 02/15/25 21:31 Doxazosin Mesylate 4 Mg Tablet PO 4 mg QHS JENNIFER Administration Glucagon 1 mg 02/14/25 21:25 Glucagon For Inj 1 Mg Vial IM PRN PRN Hypoglycemia Protocol Glucose 15 gm 02/14/25 21:25 Glucose Oral Gel 15 Gm Of Glucse In 37.5 Gm Tube PO PRN PRN Hypoglycemia Protocol Heparin Sodium (Beef Lung) 50 units 02/15/25 09:00 02/15/25 09:33 Heparin Flush 50 Units/5 Ml Syringe IV PUSH 50 units QAM JENNIFER Administration Heparin Sodium (Beef Lung) 50 units 02/14/25 15:30 Heparin Flush 50 Units/5 Ml Syringe IV PUSH PRN PRN after intermittent infusion Heparin Sodium (Beef Lung) 50 units 02/14/25 15:30 02/16/25 06:04 Heparin Flush 50 Units/5 Ml Syringe IV PUSH 50 units PRN PRN Administration after blood draws Heparin Sodium (Porcine) 500 units 02/14/25 15:30 Heparin Sodium Lock Flush 500 Units/5 Ml Syringe IV PUSH PRN PRN see comments below Heparin Sodium (Porcine) 5,000 units 02/15/25 09:00 02/15/25 21:31 Heparin Sodium 5,000 Units/Ml Vial SUB-Q 5,000 units Q12HR JENNIFER Administration Hydroxyzine HCl 10 mg 02/14/25 21:00 02/15/25 21:31 Hydroxyzine Hcl 10 Mg Tablet PO 10 mg HS JENNIFER Administration Dextrose 1,000 mls @ 100 mls/hr 02/14/25 21:25 Dextrose 5% 1,000 Ml IVPB PRN PRN Hypoglycemia Protocol Vancomycin HCl 1,250 mg in 250 mls @ 166.667 mls/hr 02/16/25 09:00 Vancomycin 1,250 Mg/Ns 250 Ml IVPB 02/16/25 10:29 ONCE ONE Cefepime HCl 2 gm in 50 mls @ 100 mls/hr 02/16/25 08:40 Maxipime 2 Gm/Ns 50 Ml IVPB Q8H JENNIFER Insulin Aspart 3 - 6 units 02/15/25 08:00 02/16/25 08:06 Insulin Aspart (*Bkc) 100 Units/Ml SUB-Q Not Given TIDWM [facility] Protocol Insulin Aspart 1 - 3 units 02/14/25 21:35 02/15/25 21:30 Insulin Aspart (*Bkc) 100 Units/Ml SUB-Q 2 units HS [facility] Administration Protocol Insulin Glargine 8 units 02/14/25 21:25 02/15/25 17:38 Insulin Glargine (*Bkc) 100 Units/Ml SUB-Q 8 units QPM JENNIFER Administration Metoprolol Succinate 50 mg 02/14/25 21:00 02/15/25 21:31 Metoprolol Succinate Ext Rel 50 Mg Tabcr PO 50 mg Q12HR JENNIFER Administration Miscellaneous Information 1 each 02/15/25 00:01 Auryxia Is Nonform; Can Pt Use From Home? XX 03/17/25 00:00 CLARIFY JENNIFER Morphine Sulfate 1 mg 02/15/25 17:28 Morphine Sulfate (*Crx) 2 Mg/Ml Inj IV PUSH Q4H PRN Pain Rated 7-10 Non-Formulary Medication 2 tablet 02/15/25 09:00 Ferric Citrate [Auryxia] PO 03/17/25 08:59 BID JNENIFER Pantoprazole Sodium 40 mg 02/14/25 21:00 02/15/25 21:31 Pantoprazole 40 Mg Tablet PO 40 mg Q12HR JENNIFER Administration Rosuvastatin Calcium 20 mg 02/15/25 09:00 02/15/25 09:32 Rosuvastatin 20 Mg Tablet PO 20 mg DAILY JENNIFER Administration Sodium Chloride 10 ml 02/14/25 22:00 02/16/25 06:04 Central Line Flush IV PUSH 10 ml Q8HR JENNIFER Administration Trazodone HCl 50 mg 02/14/25 21:00 02/15/25 21:31 Trazodone Hcl 50 Mg Tablet PO 50 mg HS JENNIFER Administration Vancomycin HCl 1 each 02/16/25 08:33 Vancomycin For Peritoneal Dialysis IVPB PRN PRN Vancomycin Protocol Vitamin B Complex/Folic Acid 1 cap 02/15/25 09:00 02/15/25 09:33 Vitamin B Cmplx/Vit C/Folic Ac 1 Capsule PO 1 cap DAILY JENNIFER Administration Vitamin D 4,000 units 02/15/25 09:00 02/15/25 09:31 Cholecalciferol 1,000 Units Tablet PO 4,000 units DAILY JENNIFER Administration Radiology Results: ITS Impressions Abdomen/Pelvis CT 02/14/25 12:35 Impression: Left lower quadrant transplant kidney without hydronephrosis or stone. There is extensive hazy infiltration of the fat at the left transplant hilar region and surrounding mesenteric fat. This is of uncertain etiology. Correlate for infectious or inflammatory process of the transplant kidney. Somewhat atrophic left [place] kidney with innumerable presumed simple and hyperdense cysts, but no hydronephrosis. Presumed prior right nephrectomy. Moderate abdominopelvic ascites with peritoneal dialysis catheter present. Labs Labs: Laboratory Results - last 24 hr 02/14/25 02/15/25 02/15/25 17:43 12:25 16:28 WBC RBC Hgb Hct MCV MCH MCHC RDW Plt Count MPV Immature Gran % (Auto) Neut % (Auto) Lymph % (Auto) [place] % (Auto) Eos % (Auto) Baso % (Auto) Lymph # (Auto) [place] # (Auto) Eos # (Auto) Baso # (Auto) Abs Immat Gran (auto) Absolute Neuts (auto) Absolute Nucleated RBC Nucleated RBC % Sodium Potassium Chloride Carbon Dioxide Anion Gap BUN Creatinine Estim Creat Clear Calc Estimated GFR Glucose POC Capillary Glucose 141 H 317 H Calcium Phosphorus Total Bilirubin AST ALT Alkaline Phosphatase Total Protein Albumin Peritoneal Source Peritoneal fluid Peritoneal Color Yellow Peritoneal Appearance Hazy A Peritoneal RBC 7000 Periton Nuc Cells 806 H Periton Neutrophils 32 H Periton Lymphocytes 19 Peritoneal Monocytes 48 Periton Macrophages 1 02/15/25 02/16/25 02/16/25 19:14 06:06 07:25 WBC 9.6 RBC 3.63 L Hgb 10.0 L Hct 31.6 L MCV 87.1 MCH 27.5 MCHC 31.6 L RDW 18.5 H Plt Count 102 L MPV 10.2 Immature Gran % (Auto) 0.6 H Neut % (Auto) 92.0 H Lymph % (Auto) 2.0 L [place] % (Auto) 5.2 Eos % (Auto) 0.1 Baso % (Auto) 0.1 L Lymph # (Auto) 0.19 L [place] # (Auto) 0.5 Eos # (Auto) 0.0 Baso # (Auto) 0.0 Abs Immat Gran (auto) 0.06 H Absolute Neuts (auto) 8.8 H Absolute Nucleated RBC 0.020 H Nucleated RBC % 0.2 Sodium 130 L Potassium 4.0 Chloride 95 L Carbon Dioxide 20 L Anion Gap 15 H BUN 67 H Creatinine 9.06 H Estim Creat Clear Calc 6 Estimated GFR 4 L Glucose 196 H POC Capillary Glucose 324 H 194 H Calcium 7.7 L Phosphorus 9.0 H Total Bilirubin 0.5 AST 27 ALT 38 H Alkaline Phosphatase 163 H Total Protein 5.0 L Albumin 2.7 L Peritoneal Source Peritoneal Color Peritoneal Appearance Peritoneal RBC Periton Nuc Cells Periton Neutrophils Periton Lymphocytes Peritoneal Monocytes Periton Macrophages Quality VTE Prophylaxis VTE prophylaxis: pharmacologic ordered (Heparin 5000 units q.12 hours)
[2025-02-16] MEDS: calcitrioL 0.25 MCG CAPSULE PO (09:38)
[2025-02-16] MEDS: ROSUVASTATIN 20 MG TABLET PO (09:38)
[2025-02-16] MEDS: VITAMIN B CMPLX/VIT C/FOLIC AC 1 CAPSULE 1 CAP PO (09:38)
[2025-02-16] MEDS: METOPROLOL SUCCINATE EXT REL 50 MG TABCR PO (09:38)
[2025-02-16] MEDS: dilTIAZem HCL CD 120 MG CAP.24HR PO (09:38)
[2025-02-16] MEDS: BUMETANIDE 1 MG TABLET 4 MG PO (09:38)
[2025-02-16] MEDS: CHOLECALCIFEROL 1,000 UNITS TABLET 4000 UNITS PO (09:38)
[2025-02-16] MEDS: VANCOMYCIN 1,250 MG/NS 250 ML 1,250 MG/250 ML BAG 166.67 MG IVPB (09:38)
[2025-02-16] MEDS: ASPIRIN 81 MG ENTERIC TABLET PO (09:39)
[2025-02-16] MEDS: allopurinoL 150 MG TABLET PO (09:39)
[2025-02-16] MEDS: PANTOPRAZOLE 40 MG TABLET PO (09:39)
[2025-02-16 10:44] LABS: Appearance Peritoneal Fluid Clear (Clear); Color Peritoneal Fluid Yellow (Colorless); Source Peritoneal Fluid Peritoneal Fluid
[2025-02-16 10:45] LABS: Eosinophils Peritoneal Fluid 2 %; Lymphocytes Peritoneal Fluid 17 %; Macrophages Peritoneal Fluid 8 %; Mesothelial Cells Peritoneal Fluid 27 %; Monocytes Peritoneal Fluid 8 %; Neutrophils Peritoneal Fluid 38 % (0-25); Nucleated Cells Peritoneal Flu 310 /uL (0-500); RBC Peritoneal Fluid < 2000 /uL (0-10000)
[2025-02-16 11:32] LABS: Glucose Point of Care 269 mg/dl (65-105)
[2025-02-16] MEDS: INSULIN ASPART (*BKC) 100 UNITS/ML SUB-Q ×2 (11:40→17:24)
[2025-02-16] MEDS: HEPARIN SODIUM 5,000 UNITS/ML VIAL 5000 UNITS SUB-Q (11:43)
[2025-02-16] MEDS: CEFEPIME 1 GM/NS 50 ML 1 GM/50 ML BAG IVPB (11:49)
--- NOTE | 2025-02-16 11:57 | P.PNNP_ITS ---
Progress Note: A&P Assessment and Plan (1) End stage renal disease: Code(s): N18.6 - End stage renal disease Status: Chronic Assessment and Plan: * continue nightly CCPD while hospitalized * follow electrolytes, volume status, and clearance * adjust PD presciption as needed (2) Pyelonephritis of transplanted kidney: Code(s): T86.19 - Other complication of kidney transplant; N12 - Tubulo-interstitial nephritis, not specified as acute or chronic Status: Acute Assessment and Plan: * suspected based on admission imaging findings * possibly complicated by peritonitis based on 02/15 PD fluid sample * UA results noted * follow-up on culture data * transplant kidney ultrasound results noted * follow-up on repeat imaging (CTA C/A/P) * on antibiotics (3) Left sided abdominal pain: Code(s): R10.9 - Unspecified abdominal pain Status: Acute Assessment and Plan: * presumed etiology due to #2 * possible component of peritonitis.... * initial PD fluid sample (on 02/15) highly suggestive * repeat PD fluid sample (on 02/16) appears better * pain control * continue antibiotics * follow clinical symptoms (4) Chronic anemia: Code(s): D64.9 - Anemia, unspecified Status: Chronic Assessment and Plan: * due to ESRD * will likely need DANE/Epogen while hospitalized * however, acute illness/infection may limit effectiveness of DANE * follow trend of H/H (5) Hypertension: Qualifiers: Hypertension type: primary hypertension Qualified Code(s): I10 - Essential (primary) hypertension Code(s): I10 - Essential (primary) hypertension Status: Chronic Assessment and Plan: * reasonable control at this time * follow trend of hemodynamics (6) Type 2 diabetes mellitus: Qualifiers: Chronic kidney disease stage: on chronic dialysis Diabetes mellitus complication detail: with chronic kidney disease Diabetes mellitus complication status: with kidney complications Diabetes mellitus half-way insulin use: w [facility] casing splitter use Qualified Code(s): E11.22 - Type 2 diabetes mellitus with diabetic chronic kidney disease; N18.6 - End stage renal disease; Z99.2 - Dependence on renal dialysis Code(s): E11.9 - Type 2 diabetes mellitus without complications Status: Chronic Assessment and Plan: * follow accuchecks * glycemic control per hospitalist Will continue to follow. L Subjective Date/time seen: 02/16/25 11:57 Interval history: Follow-up for end stage renal disease on peritoneal dialysis. Tolerated peritoneal dialysis treatment overnight without any acute issues (CCPD supervised and seen at 11:45AM); however, still with significant abdominal pain in her LLQ; PD fluid sample done yesterday suggestive of peritonitis as well (although repeat PD fluid cell count this AM seems better); antibiotics adjusted today and intraperitoneal antibiotics to be instilled today; CTA of C/A/P done earlier today for further evaluation of low grade fevers as well; noted plans for transfer to [facility] once bed available. Exam 2 Narrative: General: WD/WN female in mild distress secondary to pain Heart: normal S1 and S2; no rub Lungs: clear to auscultation Abdomen: significant tenderness to palpation in LLQ Extremities: no cyanosis or clubbing; no edema Skin: warm and dry Objective Data Vital Signs Vital Signs: Vital Signs Temp Pulse Resp BP Pulse Ox O2 Del Method 02/16/25 09:30 99.4 F 89 20 126/84 02/16/25 08:45 Room Air 02/16/25 08:12 99.4 F 89 20 126/84 96 02/16/25 07:04 99.1 F 02/16/25 06:04 100 F H 02/16/25 06:00 100 F H 91 16 133/84 97 02/15/25 22:40 100.2 F H 02/15/25 22:00 100.2 F H 93 16 136/95 H 96 02/15/25 21:40 99.4 F 02/15/25 21:31 93 02/15/25 20:00 93 20 94 Room Air Intake/Output Intake/Output: Intake & Output 02/13/25 02/14/25 02/15/25 02/16/25 23:59 23:59 23:59 23:59 Intake Total 1600 2140 1595 Balance 1600 2140 1595 Meds/Results Medications: Active Medications Generic Name Dose Route Start Last Admin Trade Name Freq PRN Reason Stop Dose Admin Acetaminophen 650 mg 02/14/25 23:48 02/16/25 06:04 Acetaminophen 325 Mg Tablet PO 650 mg Q4H PRN Administration Mild Pain (1-3) or Fever Hydrocodone Bitart/Acetaminophen 1 tab 02/15/25 17:28 Hydrocodone/Acetaminophen (*Crx) 5-325 Mg Tablet PO Q6H PRN Pain Rated 4-6 Allopurinol 150 mg 02/15/25 09:00 02/16/25 09:39 Allopurinol 150 Mg Tablet PO 150 mg DAILY JENNIFER Administration Aspirin 81 mg 02/15/25 09:00 02/16/25 09:39 Aspirin 81 Mg Enteric Tablet PO 81 mg DAILY JENNIFER Administration Bumetanide 4 mg 02/15/25 09:00 02/16/25 09:38 Bumetanide 1 Mg Tablet PO 4 mg QAM JENNIFER Administration Calcitriol 0.25 mcg 02/15/25 09:00 02/16/25 09:38 Calcitriol 0.25 Mcg Capsule PO 0.25 mcg DAILY JENNIFER Administration Cinacalcet 60 mg 02/14/25 20:45 02/16/25 17:23 Cinacalcet 30 Mg Tablet PO 60 mg QPM JENNIFER Administration Dextrose 12.5 gm 02/14/25 21:25 Dextrose 50% 25 Gm/50 Ml Syringe IV PUSH PRN PRN Hypoglycemia Protocol Diltiazem HCl 120 mg 02/15/25 09:00 02/16/25 09:38 Diltiazem Hcl Cd 120 Mg Cap.24hr PO 120 mg QAM JENNIFER Administration Doxazosin Mesylate 4 mg 02/14/25 21:00 02/15/25 21:31 Doxazosin Mesylate 4 Mg Tablet PO 4 mg QHS JENNIFER Administration Glucagon 1 mg 02/14/25 21:25 Glucagon For Inj 1 Mg Vial IM PRN PRN Hypoglycemia Protocol Glucose 15 gm 02/14/25 21:25 Glucose Oral Gel 15 Gm Of Glucse In 37.5 Gm Tube PO PRN PRN Hypoglycemia Protocol Heparin Sodium (Beef Lung) 50 units 02/15/25 09:00 02/16/25 09:33 Heparin Flush 50 Units/5 Ml Syringe IV PUSH 50 units QAM JENNIFER Administration Heparin Sodium (Beef Lung) 50 units 02/14/25 15:30 Heparin Flush 50 Units/5 Ml Syringe IV PUSH PRN PRN after intermittent infusion Heparin Sodium (Beef Lung) 50 units 02/14/25 15:30 02/16/25 06:04 Heparin Flush 50 Units/5 Ml Syringe IV PUSH 50 units PRN PRN Administration after blood draws Heparin Sodium (Porcine) 500 units 02/14/25 15:30 Heparin Sodium Lock Flush 500 Units/5 Ml Syringe IV PUSH PRN PRN see comments below Heparin Sodium (Porcine) 5,000 units 02/15/25 09:00 02/16/25 11:43 Heparin Sodium 5,000 Units/Ml Vial SUB-Q 5,000 units Q12HR JENNIFER Administration Hydroxyzine HCl 10 mg 02/14/25 21:00 02/15/25 21:31 Hydroxyzine Hcl 10 Mg Tablet PO 10 mg HS JENNIFER Administration Dextrose 1,000 mls @ 100 mls/hr 02/14/25 21:25 Dextrose 5% 1,000 Ml IVPB PRN PRN Hypoglycemia Protocol Cefepime HCl 1 gm in 50 mls @ 100 mls/hr 02/16/25 09:00 02/16/25 12:19 Maxipime 1 Gm/Ns 50 Ml IVPB Infused Q24H JENNIFER Infusion Sodium Chloride 1,000 mls @ 75 mls/hr 02/16/25 13:30 02/16/25 16:00 Normal Saline Iv IV CONT 75 mls/hr .[id number] JENNIFER Administration Insulin Aspart 3 - 6 units 02/15/25 08:00 02/16/25 17:24 Insulin Aspart (*Bkc) 100 Units/Ml SUB-Q 4 units TIDWM JENNIFER Administration Protocol Insulin Aspart 1 - 3 units 02/14/25 21:35 02/15/25 21:30 Insulin Aspart (*Bkc) 100 Units/Ml SUB-Q 2 units HS JENNIFER Administration Protocol Insulin Glargine 8 units 02/14/25 21:25 02/16/25 17:23 Insulin Glargine (*Bkc) 100 Units/Ml SUB-Q 8 units QPM JENNIFER Administration Metoprolol Succinate 50 mg 02/14/25 21:00 02/16/25 09:38 Metoprolol Succinate Ext Rel 50 Mg Tabcr PO 50 mg Q12HR JENNIFER Administration Miscellaneous Information 1 each 02/15/25 00:01 Auryxia Is Nonform; Can Pt Use From Home? XX 03/17/25 00:00 CLARIFY JENNIFER Morphine Sulfate 1 mg 02/15/25 17:28 Morphine Sulfate (*Crx) 2 Mg/Ml Inj IV PUSH Q4H PRN Pain Rated 7-10 Non-Formulary Medication 2 tablet 02/15/25 09:00 Ferric Citrate [Auryxia] PO 03/17/25 08:59 BID JENNIFER Pantoprazole Sodium 40 mg 02/14/25 21:00 02/16/25 09:39 Pantoprazole 40 Mg Tablet PO 40 mg Q12HR JENNIFER Administration Rosuvastatin Calcium 20 mg 02/15/25 09:00 02/16/25 09:38 Rosuvastatin 20 Mg Tablet PO 20 mg DAILY JENNIFER Administration Sodium Chloride 10 ml 02/14/25 22:00 02/16/25 16:00 Central Line Flush IV PUSH 10 ml Q8HR JENNIFER Administration Trazodone HCl 50 mg 02/14/25 21:00 02/15/25 21:31 Trazodone Hcl 50 Mg Tablet PO 50 mg HS JENNIFER Administration Vancomycin HCl 1 each 02/16/25 08:33 Vancomycin For Peritoneal Dialysis IVPB PRN PRN Vancomycin Protocol Vitamin B Complex/Folic Acid 1 cap 02/15/25 09:00 02/16/25 09:38 Vitamin B Cmplx/Vit C/Folic Ac 1 Capsule PO 1 cap DAILY JENNIFER Administration Vitamin D 4,000 units 02/15/25 09:00 02/16/25 09:38 Cholecalciferol 1,000 Units Tablet PO 4,000 units DAILY JENNIFER Administration Radiology Results: ITS Impressions Renal Ultrasound 02/16/25 10:06 IMPRESSION: No infection/abscess appreciated within the failed left lower quadrant transplant kidney, as detailed above. Labs Labs: Laboratory Tests 02/16/25 06:06 02/16/25 06:06 Calcium 7.7 L Phosphorus 9.0 H Total Bilirubin 0.5 AST 27 ALT 38 H Alkaline Phosphatase 163 H Total Protein 5.0 L Albumin 2.7 L Microbiology 02/14/25 17:43 Peritoneal Fluid Anaerobic Culture - Preliminary 02/14/25 15:16 Abdominal Fluid Anaerobic Culture - Preliminary 02/14/25 11:29 Urine Clean Catch Urine Culture Reflexed - Final 02/14/25 19:13 Blood Blood Culture - Preliminary
[2025-02-16] MEDS: CEFTAZIDIME IV CONT (12:07)
[2025-02-16] MEDS: PERITONEAL DIALYSIS IV CONT (12:07)
[2025-02-16] MEDS: VANCOMYCIN HCL IV CONT (12:07)
[2025-02-16] MEDS: SODIUM CHLORIDE 0.9% IV 1,000 ML 75 ML IV CONT (16:00)
--- NOTE | 2025-02-16 16:14 | PC.NURSE ---
This patient, Brandy Casey, was transferred to [facility] on 02/16/25 at 1415. Personal belongings sent with patient. Report given to Emra. Appropriate documentation sent with patient. Patient belongings sent with patient.
[2025-02-16 17:12] LABS: Glucose Point of Care 266 mg/dl (65-105)
[2025-02-16] MEDS: INSULIN GLARGINE (*BKC) 100 UNITS/ML 8 UNITS SUB-Q (17:23)
[2025-02-16] MEDS: CINACALCET 30 MG TABLET 60 MG PO (17:23)
--- NOTE | 2025-02-16 18:38 | PC.NURSE ---
This patient, Brandy Casey, was received from [facility] on 02/16/25 at 1418. Patient/family oriented to unit policies and routines. Patient assessment completed. Patient voiced no complaints or concerns at this time. Call light in reach will continue to monitor. Deanna Hein RN
--- NOTE | 2025-02-16 18:44 | PC.NURSE ---
Receivced call from [facility] stating patient now has a bed at the facility room 735 and admitting provider is Dr. Guo. Report can be called to Hanna at [phone] or to charge nurse at [phone]. Phoned Hanna at number provided and gave report and informed ambulance would be called and patient transferred. Patient and family informed of transfer and consents signed. ALYSON Ospina
--- NOTE | 2025-02-16 20:02 | PC.NURSE ---
RN consult note 02/16/25: Called in to drain patient's peritoneal cavity prior to ambulance transport. PD effluent drained per policy. 1800 ml output. Cloudy and dark yellow. No fibrin noted. Patient denies abdominal pain, but she does report poor appetite. Report to Srinivasa Harris RN. Total time: 75 minutes.
--- NOTE | 2025-02-17 22:37 | P.PNCROSS_ITS ---
Event Note Event Note Event Note: Laboratory 02/17/2025 patient had 1 of 2 blood cultures growing out Gram-positi ve cocci in clusters. Original blood cultures had been obtained on 02/16 around 08:00. I reviewed the patient's chart as the patient had already been transferred [facility]. I called [facility] transfer line and updated them as to the results of the patient's blood cultures from the with Gram-positive cocci in clusters in aerobic bottle and I also updated them about the prior culture from the that grew out Gram-negative bacilli in the aerobic bottle.
--- NOTE | 2025-02-28 08:53 | P.TS_ITS ---
Transfer Discharge Sum: Prov Provider Date of admission: 02/15/25 15:58 Primary care physician: Compa Sam MD Admitting clinician: Clint Crenshaw MD Consults: 02/14/25 17:38 Consult to Physician Routine Comment: Consulting Provider: Poncho Gardiner order caller/MD group to consult: nephrology Reason for consultation: concern for peritonitis, peritoneal dialysis Has provider been notified: Yes Attending physician on discharge: Clint Crenshaw Discharging clinician: Chely Brock Anticipated date of transfer: 02/15/25 Receiving physician/facility: [facility] DS: Admitting Diagnosis Discharge Date 02/16/25 Admitting Diagnosis abd/flank pain DS: Discharge Diagnosis Discharge Diagnosis (1) Pyelonephritis of transplanted kidney: Code(s): T86.19 - Other complication of kidney transplant; N12 - Tubulo-interstitial nephritis, not specified as acute or chronic Status: Acute (2) Patient on peritoneal dialysis: Code(s): Z99.2 - Dependence on renal dialysis Status: Acute (3) Type 2 diabetes mellitus with hyperglycemia, with long-term current use of insulin: Code(s): E11.65 - Type 2 diabetes mellitus with hyperglycemia; Z79.4 - shelter (current) use of insulin Status: Acute (4) End-stage renal disease (ESRD): Code(s): N18.6 - End stage renal disease Status: Acute Transfer Discharge Sum: Med Medications Active and Home Medications: Home Medications aspirin 81 mg tablet,delayed release 81 mg PO DAILY 10/24/19 [History Confirmed 02/14/25] allopurinol 100 mg tablet 150 mg PO DAILY 07/22/22 [History Confirmed 02/14/25] calcitriol 0.25 mcg capsule 0.25 mcg PO DAILY 07/22/22 [History Confirmed 02/14/25] cinacalcet 30 mg tablet 60 mg PO .nightly 07/22/22 [History Confirmed 02/14/25] cholecalciferol (vitamin D3) 100 mcg (4,000 unit) tablet 100 mcg PO DAILY 08/09/22 [History Confirmed 02/14/25] metoprolol succinate 50 mg tablet,extended release 24 hr 50 mg PO BID 08/09/22 [History Confirmed 02/14/25] bumetanide 2 mg tablet 4 mg PO QAM 12/02/23 [History Confirmed 02/14/25] vitamin B complex-vitamin C-folic acid 0.8 mg tablet (Rossana-Carol) 1 tablet PO DAILY 12/02/23 [History Confirmed 02/14/25] cyclobenzaprine 5 mg tablet 5 mg PO TID PRN muscle spasm 01/15/24 [History Confirmed 02/14/25] trazodone 50 mg tablet 50 mg PO HS 01/15/24 [History Confirmed 02/14/25] lansoprazole 30 mg capsule,delayed release 30 mg PO BID 07/07/24 [History Confirmed 02/14/25] rosuvastatin 20 mg tablet 20 mg PO DAILY 07/07/24 [History Confirmed 02/14/25] sitagliptin phosphate 25 mg tablet (Januvia) 25 mg PO DAILY 07/07/24 [History Confirmed 02/14/25] doxazosin 1 mg tablet 4 mg PO QHS 09/25/24 [History Confirmed 02/14/25] diltiazem HCl 120 mg capsule,24 hr,extended release 120 mg PO QAM 30 days #30 caps 10/02/24 [Rx Confirmed 02/14/25] hydroxyzine HCl 10 mg tablet 10 mg PO HS 01/09/25 [History Confirmed 02/14/25] ferric citrate 210 mg iron tablet (Auryxia) 2 tablet PO BID 02/14/25 [History Confirmed 02/14/25] insulin glargine 100 unit/mL (3 mL) subcutaneous pen (Lantus Solostar U-100 Insulin) 8 unit subcut QPM 02/14/25 [History Confirmed 02/14/25] insulin lispro 100 unit/mL subcutaneous pen See Rx Instructions subcut ACINSULIN 02/14/25 [History Confirmed 02/14/25] Transfer Discharge Sum: Hosp Hospital Course Hospital course: 65-year-old female with a past medical history of 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 ED provider discussed care with [facility] recreation officer: [facility] nephrology fellow, Dr Sher, who advised pt be admitted to this hospital for IV antibiotics. He advised pt be treated as though she has pyelonephritis. Dr. Sher advised pt receive Ceftriaxone IV. Once pt is ready for discharge he advised pt receive a steroid dose pack. He reports if pt's symptoms have not improved in two weeks, then she should follow-up in the kidney transplant clinic and they can discuss removal of the kidney. Dr. Sher advised this surgery would not be emergent, so there is no need for pt to be transferred to [facility] for further evaluation Abd/pelvis CT: Left lower quadrant transplant kidney without hydronephrosis or stone. There is extensive hazy infiltration of the fat at the left transplant hilar region and surrounding mesenteric fat. This is of uncertain etiology. Correlate for infectious or inflammatory process of the transplant kidney. Somewhat atrophic left kiana kidney with innumerable presumed simple and hyperdense cysts, but no hydronephrosis. Presumed prior right nephrectomy. Moderate abdominopelvic ascites with peritoneal dialysis catheter present Pt continues to be on vanc and ceftriaxone. Last night, spiked fever and d eveloped acute abd pain. Pain med was ordered per evening attending. This morning, still fevers, abd is distended, still pain. Discussed care with recreation officer and attending, ok to order IV contrast per Dr Gardiner- CT abd/pelvis repeated. Continue vanc and broaden antibiotics to cefepime-renally dose. Of note, pt was admitted here in september for sepsis as well. [facility] transfer line was called. Pt is accepted per hospitalist team, DR Guo. Certified Juvenile Probation Officer, Dr Sher. Transferred in stable condition. Time Spent with Patient Time attestation: Total time spent providing and/or coordinating transfer services: Total time spent: Greater than 30 minutes Exam Narrative: Weight 79 kg BMI 29.9 Const: General: cooperative and comfortable Orientation/consciousness: oriented to person, oriented to place and oriented to time Other: calm HENMT: Face and sinus: normal facial exam Eyes: General: appearance normal, both eyes and all related structures Neck: Neck: normal visual inspection Chest: Chest palpation & inspection: normal inspection of the chest Resp: Effort & Inspection: normal respiratory effort Auscultation: clear to auscultation bilaterally Cardio: Rate: regular rate Rhythm: regular rhythm GI: Inspection: distended GI Palp: Yes Tenderness to palpation present (GI) Skin: General skin exam: normal color Neuro: General: patient oriented x3 Speech: normal speech Other: a/o x 3 Psych: Other: flat affect DS: Data Data Completed and Pending Completed studies during hospitalization: ct abd/pelvis Pending studies at discharge: blood cultures
== END 2025-02-16 20:06 | disposition short-term general hospital (02) | DRG 698 ==
LOC: ANHED 11:38 → ANH3MEDSUR 18:29 → ANHIMU 02-19 16:01
PROVIDERS: Internal Medicine Nephrology; Admitting Provider General Practice; Emergency Provider Registered Nurse; PCP Family Medicine; Visit Provider Nurse Practitioner
DX: T86.19 Other complication of kidney transplant (principal); N18.6 End stage renal disease; R18.8 Other ascites; N10 Acute pyelonephritis; I12.0 Hypertensive chronic kidney disease with stage 5 chronic kidney disease or end stage renal disease; A49.01 Methicillin susceptible Staphylococcus aureus infection, unspecified site; E11.65 Type 2 diabetes mellitus with hyperglycemia; E11.22 Type 2 diabetes mellitus with diabetic chronic kidney disease; D63.1 Anemia in chronic kidney disease; K21.9 Gastro-esophageal reflux disease without esophagitis; E78.5 Hyperlipidemia, unspecified; M19.90 Unspecified osteoarthritis, unspecified site; Z99.2 Dependence on renal dialysis; Z90.49 Acquired absence of other specified parts of digestive tract; Z79.4 Long term (current) use of insulin
CPT/HCPCS: 36415; 74176; 74177; 76775; 80053; 81001; 82948; 83605; 83690; 83735; 84100; 84484; 85025; 85610; 85730; 86140; 86706; 87040; 87070; 87075; 87086; 87181; 87186; 87205; 87340; 89051; 90945; 93005; 96361; 96365; 96366; 96367; 99285; A9270; G0378; J0692; J0696; J0713; J1642; J1644; J1815; J3370; J7030; J7040; Q9967

== ENCOUNTER 2025-07-25 01:05 | Day surgery (SDC) | payer MEDICARE, BC, SELFPAY ==
--- OUTSIDE RECORDS SUMMARY | 2018-10-18 03:45 | XMS_ITS | Continuity of Care Document ---
Author Organization [facility] [place] Address [address] [place] [id number] Phone Care Team Providers Care Master Rigger Name Role Phone Bre BLAKELY, Leoncio Unavailable Un available Allergies, Adverse Reactions, Alerts Substance Reaction Status Criticality POTASSIUM CLAVULANATE Active No Inf ormation AMOXICILLIN TRIHYDRATE Active No In formation Medications Medication Instructions Dosage Effective Dates (start - stop) Status Comments sodium bicarbonate 650 mg tablet take 1 by Oral route 3 times every day 1 - Active hydralazine 50 mg tablet take 1 tablet by oral route 2 times every day with food 50 MG - Active Toprol XL Oral Tablet Extended Release 24 Hour 50 MG TAKE 1 TABLET BY MOUTH TWO TIMES A DAY - Active Calcitriol Oral Capsule 0.25 MCG TAKE 1 CAPSULE BY MOUTH ONE TIME A DAY 0.25 MCG - Active CloNIDine HCl Oral Tablet 0.1 MG TAKE 1 TABLET BY MOUTH NEEDED IF SYSTOLIC BLOOD PRESSURE IS >160 - Active melatonin 5 mg capsule qhs - Active Vitamin D3 2,000 unit tablet qd - Active pravastatin 20 mg tablet take 1 Tablet by oral route every day 20 MG - Active allopurinol 100 mg tablet take 2 tablet by oral route every day 200 MG - Active Prevacid 30 mg capsule,delayed release take 1 capsule by oral route every day before a meal 30 MG - Active Procedures Procedure Date Office/outpatient Visit, Est Office/outpatient Visit, Est Office/outpatient Visit, Est Office/outpatient Visit, Est Office/outpatient Visit, Est Office/outpatient Visit, Est Office/outpatient Visit, Est Office/outpatient Visit, Est Subsequent Hospital Care Subsequent Hospital Care Initial Inpatient Consult Subsequent Hospital Care Office/outpatient Visit, Est Subsequent Hospital Care Subsequent Hospital Care Subsequent Hospital Care Subsequent Hospital Care Initial Inpatient Consult Subsequent Hospital Care Subsequent Hospital Care Subsequent Hospital Care Office/outpatient Visit, Est Office Consultation Office/outpatient Visit, Est Advance Directives Directive Yes / No Effective Date File Name No Information Encounters Encounter Description Practice Location Reason(s) For Visit Diagnoses Date Provider Providers Copied on Encounter [facility], [address], [id number], tel:[phone] [facility] No Information 9 Shirley Fang. [address] [facility], [facility], [place], [place], [id number], [place]. tel:[phone] Referring Provider: Vitaly Jacinto, [address] [place] [address] [address], [place], [place], [id number]. tel:[phone] [facility], [address], [id number], [place] tel:[phone] [facility] Chronic kidney disease, stage 4 (severe)Hyper tensive chronic kidney disease w stg 1-4/unsp chr kdnySecondary hyperparathyr oidism of renal originAnemia in chronic kidney disease 9 Shirley Fang. [address] [facility], [address], [place], [place], [id number], [place]. tel:[phone] Referring Provider: Vitaly Jacinto, [address], [place], [place], [id number]. tel:[phone] [facility], [address], [id number], [place] tel:[phone] [facility] No Information 9 Shirley Fang. [address] [facility], [address], [place], [id number], [place]. tel:[phone] Referring Provider: Vitaly Jacinto, [address], [place], [place], [id number]. tel:[phone] [facility], [address], [id number], [place] tel:[phone] [facility] [place] Chronic kidney disease, stage 4 (severe)Hyper tensive chronic kidney disease w stg 1-4/unsp chr kdnySecondary hyperparathyr oidism of renal originAnemia in chronic kidney disease 9 Shirley Fang. [address] [facility], [address], [id number], [place]. tel:[phone] Referring Provider: Vitaly Jacinto, [address], [place], [place], [id number]. tel:[phone] [facility], [address], [id number], [place] tel:[phone] [facility] [place] Chronic kidney disease, stage 4 (severe)Hyper tensive chronic kidney disease w stg 1-4/unsp chr kdnySecondary hyperparathyr oidism of renal originAnemia in chronic kidney disease 8 Shirley Fang. [address] [facility], [address], [place], [place], [id number], [place]. tel:[phone] Referring Provider: Vitaly Jacinto, [address], [place], [place], [id number]. tel:[phone] [facility], [address] [place] [address], [id number], [place] tel:[phone] [facility] [place] Chronic kidney disease, stage 4 (severe)Hyper tensive chronic kidney disease w stg 1-4/unsp chr kdnySecondary hyperparathyr oidism of renal originAnemia in chronic kidney disease 8 Shirley Fang. [address] [facility], [address], [place], [place], [id number], [place]. tel:[phone] Referring Provider: Vitaly Jacinto, [address], [place], [place], [id number]. tel:[phone] [facility], [address] [place] [address], [id number], [place] tel:[phone] [facility] [place] Chronic kidney disease, stage 4 (severe)Hyper tensive chronic kidney disease w stg 1-4/unsp chr kdnySecondary hyperparathyr oidism of renal originAnemia in chronic kidney disease 8 Shirley Fang. [address] [facility], [address], [place], [place], [id number], [place]. tel:[phone] Referring Provider: Vitaly Jacinto, [address], [place], [place], [id number]. tel:[phone] Office/outpat ient Visit, Est [facility], [address] [place] [address], [id number], [place] tel:[phone] [facility] [place] Chronic Kidney Disease (chief complaint) Hypertensi on (chief complaint) Chronic kidney disease, stage 4 (severe)Hyper tensive chronic kidney disease w stg 1-4/unsp chr kdnySecondary hyperparathyr oidism of renal originAnemia in chronic kidney disease 8 Shirley Fang. [address] [facility], [address], [place], [place], [id number], [place]. tel:[phone] Referring Provider: Vitaly Jacinto, [address] [facility] [address], [place], [place], [id number]. tel:[phone] [facility], [address] [place] [address], [id number], [place] tel:[phone] [facility] [place] Chronic kidney disease, stage 4 (severe)Hyper tensive chronic kidney disease w stg 1-4/unsp chr kdnySecondary hyperparathyr oidism of renal originAnemia in chronic kidney disease 8 Shirley Fang. [address] [facility], [address], [place], [place], [id number], [place]. tel:[phone] [facility], [address] [place] [address], [id number], [place] tel:[phone] [facility] [place] Chronic kidney disease, stage 4 (severe)Hyper tensive chronic kidney disease w stg 1-4/unsp chr kdnySecondary hyperparathyr oidism of renal originAnemia in chronic kidney disease 0 8 Shirley Fang. [address] [facility], [address], [place], [place], [id number], [place]. tel:[phone] [facility], [address], [id number], [place] tel:[phone] [facility] [place] No Information Jun-3 8 Shirley Fang. [address] [facility], [address], [place], [place], [id number], [place]. tel:[phone] [facility], [address], [id number], [place] tel:[phone] [facility] [place] No Information 8 Shirley Fang. [address] [facility], [address], [place], [place], [id number], [place]. tel:[phone] Referring Provider: Vitaly Jacinto, [address], [place], [place], [id number]. tel:[phone] Office/outpat ient Visit, Est [facility], [address] [place] [address], [id number], [place] tel:[phone] [facility] [place] Chronic Kidney Disease (chief complaint) Hypertensi on (chief complaint) Chronic kidney disease, stage 4 (severe)Hyper tensive chronic kidney disease w stg 1-4/unsp chr kdnySecondary hyperparathyr oidism of renal originAnemia in chronic kidney disease 8 Shirley Fang. [address] [facility], [address], [place], [place], [id number], [place]. tel:[phone] Referring Provider: Vitaly Jacinto, [address], [place], [place], [id number]. tel:[phone] [facility], [address], [id number], [place] tel:[phone] [facility] No Information 8 Shirley Fang. [address] [facility], [address], [place], [place], [id number], [place]. tel:[phone] Referring Provider: Vitaly Jacinto, [address], [place], [place], [id number]. tel:[phone] Office/outpat ient Visit, Est [facility], [address] [place] [address], [id number], [place] tel:[phone] [facility] [place] Chronic Kidney Disease (chief complaint) Hypertensi on (chief complaint) Chronic kidney disease, stage 4 (severe)Hyper tensive chronic kidney disease w stg 1-4/unsp chr kdnySecondary hyperparathyr oidism of renal originAnemia in chronic kidney disease Adriel-0 8 Shirley Fang. [address] [facility], [address], [place], [place], [id number], [place]. tel:[phone] Referring Provider: Vitaly Jacinto, [address], [place], [place], [id number]. tel:[phone] [facility], [address], [id number], [place] tel:[phone] [facility] [place] Chronic kidney disease, stage 4 (severe)Hyper tensive chronic kidney disease w stg 1-4/unsp chr kdnySecondary hyperparathyr oidism of renal originAnemia in chronic kidney disease 8 Shirley Fang. [address] [facility], [address], [place], [place], [id number], [place]. tel:[phone] Referring Provider: Vitaly Jacinto, [address], [place], [place], [id number]. tel:[phone] Office/outpat ient Visit, [facility], [address], [id number], [place] tel:[phone] [facility] [place] Chronic Kidney Disease (chief complaint) Chronic kidney disease, stage 4 (severe)Hyper tensive chronic kidney disease w stg 1-4/unsp chr kdnySecondary hyperparathyr oidism of renal originAnemia in chronic kidney disease Nov-0 8 Shirley Fang. [address] [facility], [address], [place], [place], [id number], [place]. tel:[phone] Referring Provider: Vitaly Jacinto, [address], [place], [place], [id number]. tel:[phone] [facility], [address], [id number], [place] tel:[phone] [facility] [place] No Information 8 Shirley Fang. [address] [facility], [address], [place], [place], [id number], . tel:[phone] Office/outpat ient Visit, Est [facility], [address] [place] [address], [id number], [place] tel:[phone] [facility] [place] Chronic Kidney Disease (chief complaint) Chronic kidney disease, stage 4 (severe)Hyper tensive chronic kidney disease w stg 1-4/unsp chr kdnySecondary hyperparathyr oidism of renal originAnemia in chronic kidney disease 7 Shirley Fang. [address] [facility], [address], [place], [place], [id number], [place]. tel:[phone] Referring Provider: Vitaly Jacinto, [address], [place], [place], [id number]. tel:[phone] Office/outpat ient Visit, Est [facility], [address] [place] [address], [id number], tel:[phone] [facility] [place] Chronic Kidney Disease (chief complaint) Chronic kidney disease, stage 4 (severe)Hyper tensive chronic kidney disease w stg 1-4/unsp chr kdnySecondary hyperparathyr oidism of renal originAnemia in chronic kidney disease Sep- 7 Shirley Fang. [address] [facility], [address], [place], [place], [id number], [place]. tel:[phone] Referring Provider: Vitaly Jacinto, [address], [place], [place], [id number]. tel:[phone] Office/outpat ient Visit, Est [facility], [address] [place] [address], [id number], [place] tel:[phone] [facility] [place] Chronic Kidney Disease (chief complaint) Chronic kidney disease, stage 4 (severe) 7 Shirley Fang. [address] [facility], [address], [place], [place], [id number], [place]. tel:[phone] Referring Provider: Vitaly Jacinto, [address], [place], [place], [id number]. tel:[phone] [facility], [address], [id number], [place] tel:[phone] [facility] [place] Chronic kidney disease, stage 3 (moderate)Ess ential (primary) hypertension 7 Shirley Fang. [address] [facility], [address], [place], [place], [id number], [place]. tel:[phone] Referring Provider: Vitaly Jacinto, [address], [place], [place], [id number]. tel:[phone] Office/outpat ient Visit, [facility], [address] [place] [address], [id number], [place] tel:[phone] [facility] [place] Chronic Kidney Disease (chief complaint) Chronic kidney disease, stage 3 (moderate)Ess ential (primary) hypertension 7 Shirley Fang. [address] [facility], [address], [place], [place], [id number], [place]. tel:[phone] Referring Provider: Vitaly Jacinto, [address], [place], [place], [id number]. tel:[phone] [facility], [address] [place] [address], [id number], [place] tel:[phone] [facility] Acute kidney failure, unspecifiedAn emia, unspecifiedAc kiowa tribe tubulo-inters titial nephritisEsse ntial (primary) hypertension May-0 2-201 7 Swapnil Sumner. [address], [id number], [place]. [phone] Referring Provider: Vera Deshpande, [address] [place], [address]. tel:[phone] Subsequent Hospital Care [facility], [address] [place] [address], [id number], [place] tel:[phone] [facility] Acute kidney failure, unspecifiedEs sential (primary) hypertensionA nemia, unspecifiedAc kiowa tribe tubulo-inters titial nephritis May-0 2-201 7 Fahad Amaya. [address] [facility], [facility] [address], [place], [place], [id number], [place]. tel:[phone] Referring Provider: Vera Deshpande, [address] [place], [address]. tel:[phone] Initial Inpatient Consult [facility], [address] [place] [address], [id number], [place] tel:[phone] [place] [address] Acute kidney failure, unspecifiedAn emia, unspecifiedAc ki[place] tribe tubulo-inters titial nephritisEsse ntial (primary) hypertension May-0 2-201 7 Fahad Amaya. [address] [facility], [address], [place], [place], [id number], [place]. tel:[phone] Referring Provider: Vera Deshpande, [address] [place], [address]. tel:[phone] Subsequent Hospital Care [facility], [address] [place] [address], [id number], [place] tel:[phone] [facility] Acute kidney failure, unspecifiedAn emia, unspecifiedAc ki[place] tribe tubulo-inters titial nephritisEsse ntial (primary) hypertension May-0 2-201 7 Fahad Amaya. [address] [facility], [address], [place], [place], [id number], [place]. tel:[phone] Referring Provider: Vera Deshpande, [address] [facility], [place], [address]. tel:[phone] Office/outpat ient Visit, [facility], [address] [place], [place], [id number], [place] tel:[phone] [facility] [place] Chronic kidney disease, stage 3 (moderate)Ess ential (primary) hypertension Apr- 7 Shirley Fang. [address] [facility], [address], [place], [place], [id number], [place]. tel:[phone] Referring Provider: Vitaly Jacinto, [address] [facility] [address], [place], [place], [id number]. tel:[phone] Subsequent [facility] Care [facility], [address] [place], [place], [id number], [place] tel:[phone] [facility] Acute kidney failure, unspecifiedCh ronic kidney disease, stage 3 (moderate)Acq uired absence of kidneyUrinary tract infection, site not specified Apr-0 7 Bandar Brooks. [address] [facility], [address], [place], [place], [id number], [place]. tel:[phone] Referring Provider: Kimmy Rhodes, [address] [place], [address]. tel:[phone] Subsequent [facility], [address] [place], [place], [id number], [place] tel:[phone] [facility] Acute kidney failure, unspecifiedCh ronic kidney disease, stage 3 (moderate)Ane neva, unspecified Apr-0 7 Jonathan Mckeon. [address] [facility], [address], [place], [place], [id number], [place]. tel:[phone] Referring Provider: Kimmy Rhodes, [address] [place], [address]. tel:[phone] Subsequent Hospital Care [facility], [address] [place] [address], [id number], [place] tel:[phone] [place] [address] Acute kidney failure, unspecifiedCh ronic kidney disease, stage 3 (moderate) Apr-0 7 Andrzej Heredia. [address] [facility], [address], [place], [place], [id number], [place]. tel:[phone] Referring Provider: Kimmy Rhodes, [address] [place] [address], [address]. tel:[phone] Initial Inpatient Consult [facility], [address] [place] [address], [id number], [place] tel:[phone] [place] [address] Acute kidney failure, unspecifiedCh ronic kidney disease, stage 3 (moderate)Acq uired absence of kidneyUrinary tract infection, site not specified Apr-0 7 Shirley Fang. [address] [facility], [address], [place], [place], [id number], [place]. tel:[phone] Referring Provider: Kimmy Rhodes, [address] [place], [address]. tel:[phone] Subsequent Hospital Care [facility], [address] [place] [address], [id number], [place] tel:[phone] [facility] Acute kidney failure, unspecifiedCh ronic kidney disease, stage 3 (moderate)Ane neva, unspecified Apr-0 7 Jonathan Mckeon. [address] [facility], [address], [place], [place], [id number], [place]. tel:[phone] Referring Provider: Kimmy Rhodes, [address] [place], [address]. tel:[phone] Subsequent Hospital Care [facility], [address] [place] [address], [place], [place], [id number], [place] tel:[phone] [facility] Acute kidney failure, unspecifiedCh ronic kidney disease, stage 3 (moderate)Acq uired absence of kidneyUrinary tract infection, site not specified Apr-0 7 Fahad Amaya. [address] [facility], [address], [place], [place], [id number], [place]. tel:[phone] Referring Provider: Kimmy Rhodes, [address] [place], [address]. tel:[phone] Subsequent [facility], [address] [place] [address], [id number], [place] tel:[phone] [facility] Acute kidney failure, unspecifiedCh ronic kidney disease, stage 3 (moderate)Ane neva, unspecified Apr-0 7 Jonathan Mckeon. [address] [facility], [address], [place], [place], [id number], [place]. [phone] Referring Provider: Kimmy Rhodes, [facility] [place], [address]. tel:[phone] [facility], [address] [place] [address], [id number], [place] tel:[phone] [facility] Acute kidney failure, unspecifiedCh ronic kidney disease, stage 3 (moderate)Acq uired absence of kidneyUrinary tract infection, site not specified Apr-0 7 Jonathan Mckeon. [address] [facility], [address], [place], [place], [id number], [place]. tel:[phone] Referring Provider: Kimmy Rhodes, [address] [place], [address]. tel:[phone] Office/outpat ient Visit, [facility], [address], [id number], [place] tel:[phone] [facility] [place] Stage 3 CKDEssential (primary) hypertension May- 6 Shirley Fang. [address] [facility], [address], [place], [place], [id number], [place]. tel:[phone] Office Consultation [facility], [address] [place] [address], [id number], [place] tel:[phone] [facility] [place] Chronic Kidney Disease (chief complaint) Stage 3 CKD 6 Shirley Fang. [address] [facility], [address], [place], [place], [id number], [place]. tel:[phone] Referring Provider: Vitaly Jacinto, [address] [place] [address] [address], [place], [place], [id number]. tel:[phone] [facility], [address], [id number], [place] tel:[phone] Hypercalcemia Hyperlipidemi a UnspecifiedHy perparathyroi dism, UnspecHyperte nsion,UnspIns omniaChronic Kidney Disease-Stage 3Hyperparathy roidism, PrimaryOth Dsrd Bn/cartEdemaH ypertension/B enign 1 Terry Guzman. [address] [facility], [address], [place], [place], [id number], [place]. tel:[phone] Office/outpat ient Visit, Est [facility], [address] [place] [address], [id number], [place] tel:[phone] [facility] [place] No Information 1 Terry Guzman. [address] [facility], [address], [place], [place], [id number], [place]. tel:[phone] Family History Family Member Type Diagnosis Age At Onset Problem (finding) Family history of Hyper tension Immunizations Vaccine Date Status Comments Influenza, seasonal, injectable (3 yrs or older) administered Note: Invali d documented admin date was . ; Source: Other Provider Flu Vaccine NOS administered Source: Othe r Provider Influenza, seasonal, injectable (3 yrs or older) administered Source: Othe r Provider Influenza, seasonal, injectable (3 yrs or older) administered Source: Othe r Provider Payers Payer name Insurance type Covered republican ID Amy head(sTonie Barba [facility] CI [id number] Social History Type Description Quantity Date Captured Comments Alcohol Use Details Unknown Caffeine Use Details Unknown Tobacco Use Status No Information Smoking Status No Information Sex Female Chief Complaint And Reason For Visit No Information History Of Present Illness Encounter Date Complaint History Of Prese nt Illness Chronic Kidney Disease The patie nt's disease began gradually. The severity of symptoms due to the patient's CKD is currently rated severe/10 (10=most severe). The patient's CKD is currently getting worse. Relevant disease context/risk factors include: hypertension, NSAID use and obesity. There are no pertinent negative symptoms. Hypertension Comorbid conditi ons include: chronic kidney disease. Chronic Kidney Disease The patie nt's disease began gradually. The severity of symptoms due to the patient's CKD is currently rated severe/10 (10=most severe). The patient's CKD is currently stable. Relevant disease context/risk factors include: hypertension, NSAID use and obesity. There are no pertinent negative symptoms. Hypertension Comorbid conditi ons include: chronic kidney disease. Chronic Kidney Disease The patie nt's disease began gradually. The severity of symptoms due to the patient's CKD is currently rated severe/10 (10=most severe). The patient's CKD is currently stable. Relevant disease context/risk factors include: hypertension, NSAID use and obesity. There are no pertinent negative symptoms. Hypertension Comorbid conditi ons include: chronic kidney disease. Chronic Kidney Disease The patie nt's disease began gradually. The severity of symptoms due to the patient's CKD is currently rated severe/10 (10=most severe). The patient's CKD is currently stable. Relevant disease context/risk factors include: hypertension, NSAID use and obesity. There are no pertinent negative symptoms. Chronic Kidney Disease The katerina nt's disease began gradually. The severity of symptoms due to the patient's CKD is currently rated severe/10 (10=most severe). The patient's CKD is currently getting worse. Relevant disease context/risk factors include: hypertension, NSAID use and obesity. There are no pertinent negative symptoms. Chronic Kidney Disease The patizhang nt's disease began gradually. The severity of symptoms due to the patient's CKD is currently rated severe/10 (10=most severe). The patient's CKD is currently stable. Relevant disease context/risk factors include: hypertension, NSAID use and obesity. There are no pertinent negative symptoms. Chronic Kidney Disease The patizhang nt's disease began gradually. The severity of symptoms due to the patient's CKD is currently rated moderate-severe/10 (10=most severe). The patient's CKD is currently stable. Relevant disease context/risk factors include: hypertension, NSAID use and obesity. There are no pertinent negative symptoms. Chronic Kidney Disease The patizhang nt's disease began gradually. The severity of symptoms due to the patient's CKD is currently rated moderate/10 (10=most severe). The patient's CKD is currently getting worse. Relevant disease context/risk factors include: hypertension, NSAID use and obesity. Currently the patient's associated symptoms include: weight loss of lbs over . There are no pertinent negative symptoms. Chronic Kidney Disease The patizhang nt's disease began gradually. The severity of symptoms due to the patient's CKD is currently rated moderate/10 (10=most severe). The patient's CKD is currently stable. Relevant disease context/risk factors include: hypertension, NSAID use and obesity. There are no pertinent negative symptoms. Instructions Date Instruction Additional Infor noemy Kidney Disease Related to Chron ic kidney disease, stage 4 (severe) Anemia education Related to Ledger Clerk joey kidney disease, stage 4 (severe) Kidney Disease Related to Chron ic kidney disease, stage 4 (severe) Kidney Disease Related to Chron ic kidney disease, stage 4 (severe) Hypertension education Related t o Chronic kidney disease, stage 4 (severe) Kidney Disease Related to Chron ic kidney disease, stage 4 (severe) Kidney Disease Related to Chron ic kidney disease, stage 4 (severe) Kidney Disease Related to Chron ic kidney disease, stage 4 (severe) Kidney Disease Related to Chron ic kidney disease, stage 4 (severe) Kidney Disease Related to Chron ic kidney disease, stage 3 (moderate) Kidney Basics Related to Chron ic kidney disease, stage 3 (moderate) Kidney Disease Related to Stage 3 CKD Kidney Disease Related to Stage 3 CKD Low Sodium Diet Related to Stage 3 CKD Assessments Type Assessment Date No Information
--- OUTSIDE RECORDS SUMMARY | 2023-02-21 06:13 | XMS_ITS | Continuity of Care Document ---
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 Apprentice Name Role Phone Tio BLAKELY, Milena Unavailable Unavailable Allergies, Adverse Reactions, Alerts Substance Reaction Status Criticality FENTANYL HCL Active No Information levofloxacin Nausea Active No Information doxycycline RashRash Active No Information POTASSIUM CLAVULANATE RashRash Active No Inf ormation AMOXICILLIN TRIHYDRATE RashRash Active No In formation Medications Medication Instructions Dosage Effective Dates (start - stop) Status Comments allopurinol 300 mg tablet take 1 tablet by oral route every day 300 MG - Active aspirin 81 mg chewable tablet chew 1 tablet by oral route every day 81 MG - Active folic acid 1 mg tablet take 1 tablet by oral route every day 1 MG - Active bumetanide 2 mg tablet take 1 tablet by oral route every day 2 MG - Active calcitriol 0.25 mcg capsule take 1 capsule by oral route every day 0.25 MCG - Active cholecalciferol (vitamin D3) 50 mcg (2,000 unit) capsule - Active cinacalcet 60 mg tablet take 1 tablet by oral route every day with food 60 MG - Active diphenhydramine 50 mg capsule take 1 capsule by oral route every 4 - 6 hours as needed 50 MG - Active lansoprazole 30 mg delayed release,disintegrating tablet take 1 tablet by oral route every day and place on top of the tongue where it will dissolve, then swallow 30 MG - Active lisinopril 20 mg tablet take 1 tablet by oral route every day 20 MG - Active magnesium 200 mg (as magnesium oxide) chewable tablet - Active melatonin 10 mg tablet - Active metoprolol succinate ER 25 mg tablet,extended release 24 hr take 1 tablet by oral route every day 25 MG - Active nifedipine ER 30 mg tablet,extended release take 1 tablet by oral route every day 30 MG - Active Rossana-Carol 0.8 mg tablet - Active rosuvastatin 20 mg tablet take 1 tablet by oral route every day 20 MG - Active Januvia 25 mg tablet take 1 tablet by oral route every day 25 MG - Active Procedures Procedure Date REMOVE TUNNELED CVC To Be Coded Removal tunneled cv cath Fluoroguide for vein device Removal tunneled cv cath Fluoroguide for vein device Advance Directives Directive Yes / No Effective Date File Name No Information Encounters Encounter Description Practice Location Reason(s) For Visit Diagnoses Date Provider Providers Copied on Encounter [facility], [address] [place] [address], [id number], tel:[phone] [facility] No Information Kinsey Milena. [address] [place] [address], [id number], . tel:[phone] [facility], [address] [place] [address], [id number], tel:[phone] [facility] Kinsey Milena. [address] [place] [address], [id number], . tel:[phone] Referring Provider: Quintin Fitzgerald, [address] [place] [address], [id number]. tel:[phone] [facility], [address] [place] [address], [id number], tel:[phone] [facility] Kinsey Milena. [address] [place] [address], [id number], . tel:[phone] Referring Provider: Quintin Fitzgerald, [address] [place] [address], [id number]. tel:[phone] As per patient privacy policy some of the clinical information may not be visible. Family History Family Member Type Diagnosis Age At Onset No Information Payers Payer name Insurance type Covered republican ID Authoriza tion(s) Medicare [place] [id number] [place] Fep BL [id number] Social History Type Description Quantity Date Captured Comments Sex Female Smoking Status No Information Sexual Orientation Straight or heterosexual Gender Identity Female Chief Complaint And Reason For Visit No Information Reason For Referral Reason For Referral No Information Plan Of Treatment Date Type Action Status Future Order: Radiology Order Up per Body Flouroscopy ([id number]), Ordered on: Ordered History Of Present Illness Encounter Date Complaint History Of Prese nt Illness No Information Functional Status Date Functional Assessmen t No Information Instructions Date Instruction Additional Infor mation No Information Assessments Type Assessment Date No Information Patient Care Teams Name Effective Dates (start - stop) Status Members No Information
--- OUTSIDE RECORDS SUMMARY | 2025-07-25 01:10 | XMS_ITS | Encounter Summary ---
Author Organization [facility] Address [address] [place] [address] Care Team Providers Care Search Developer Name Role Phone Compa Sam MD Unavailable [phone] Compa Sam MD Primary Care Provider [phone] Quintin Hope MD Unavailable [phone] Encounter Details Date Type Department Care Team (Late st Contact Info) Description 01/31/2025 Lab Requisition [facility] [address] [place] [id number] Quintin Snow MD [facility] [place] [address] Social History Tobacco Use Types Packs/Day Years [...] on file 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 Gender Identity Not on file Sexual Orientation [...] Care Team (Late st Contact Info) Description 09/22/2025 10:15 AM MANUAL WINDER Appointment [facility] [address] [place] [address] Quintin Snow MD [address] [facility] [place] [address] 09/22/2025 11:00 AM MANUAL WINDER Appointment [facility] [address] [place] [address] Quintin Snow MD [address] [facility] [place] [address] documented as of this encounter Goals Goal Patient Goal Type Associated Problems Recent Progress Patient-Stated? 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 ([facility]) Comment:The Hold HLA specime n has been received into the lab and will be held for 5 years at 4 degrees. Blood BLOOD SPECIMEN / Unknown 01/28/2025 11:06 AM CDT 01/31/2025 11:06 AM CDT us Quintin Snow MD LAB - BLOOD BANK ORDERABLES F inal Result [facility] ([facility]) [address] [place], [place] [address] documented in this encounter Visit Diagnoses Not on filedocumented in this encounter Care Teams Search Developer Relationship Specialty Start Date End Date Compa Sam MD [address] [place] [address] PCP - General 12/28/22 Compa Sam MD [address] [place] [address] Family Medicine 09/29/22 Quintin Hope MD [address] [facility] [address] [place] [address] Nephrology 04/10/24 documented as of this encounter
--- OUTSIDE RECORDS SUMMARY | 2025-07-25 01:10 | XMS_ITS | Clinical Summary ---
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 This disclosure is being madepursuant to the Care Everywhere program and may not contain all information available regarding this patient. Last updated 18.[facility] Allergies Active Allergy Reactions Criticality Noted Date Comments Amoxicillin Rash Medium 02/17/2023 Amoxicillin-Pot Clavulanate Rash Medium 03/25/20 23 Augmentin Rash Medium 01/12/2021 Doxycycline Rash Medium 11/30/2022 Levofloxacin Nausea and/or Vomiting High 01/12/2021 Medications * Be aware that medications may not be up to date on this document. Alwaysverify current medications with the patient. Vitamin D, Cholecalciferol , 50 MCG (1999) CAPS Take 2 capsules by mouth once daily Active aspirin EC [...] Information Patient taking differently: 60 mgOralAT BEDTIME, Reason: Patient adjusted, Reported on 07/01/2025 calcitriol (Rocaltrol) 0.25 MCG capsuleIndicati ons:Hypocalcemi a Take 1 (one) capsule by mouth once daily 90 capsule 3 2 Active acetaminophen (Tylenol) 325 MG tablet [...] for muscle spasm 60 tablet 4 Active Additional Information Patient taking differently: 10 mgOralAT BEDTIME, FOR MUSCLE SPASM, Reason: Provider adjusted, Reported on 07/01/2025 albuterol HFA (Proventil; Ventolin; Proair) 108 (90 Base) MCG/ACT inhaler Inhale 1 (one) puff by mouth every 6 hours as needed 4 Active benzonatate (Tessalon) 200 MG capsule Take 1 (one) capsule by mouth 3 times daily as needed for cough 4 Active dilTIAZem ER 24hr (Tiazac) 120 MG capsule Take 1 (one) capsule by mouth once daily 5 Active sodium bicarbonate 650 MG tablet Take 1 (one) tablet by mouth 3 times daily 90 tablet 02/24/2025 3:06 PM CDT 5 Active fluconazole (Diflucan) 100 MG tablet Take 1 (one) tablet by mouth once daily 15 tablet 02/24/2025 3:06 PM CDT 5 Active NIFEdipine CR 24hr (Adalat CC) 30 MG tablet Take 1 (one) tablet by mouth 2 times daily 60 tablet 02/24/2025 3:06 PM CDT 5 Active sevelamer carbonate (Renvela) 800 MG Take 2 (two) tablets by mouth 3 times daily with meals 180 tablet 5 Active allopurinol (Zyloprim) 100 MG tablet TAKE 1 & 1/2 (ONE & ONE-HALF) TABLETS BY MOUTH ONCE DAILY 135 tablet 3 5 Active metoprolol succinate XL 24hr (Toprol XL) 25 MG tabletIndicatio ns:Sinus tachycardia Take 2 (two) tablets by mouth 2 times daily Takes 50 BID at home 360 tablet 3 5 Active Active Problems Problem Noted Date Diagnosed Date 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 This is culture-negative peritonitis based on cell count alone -OSH Bcx 02/14 E. coli (resistant to Bactrim); 02/16 MSSA (andujar-sensitive) as of 02/21 -OSH Peritoneal fluid cx 02/14: 800 neuts, NGTD (anaerobic or aerobic) as of 02/21 -U Peritoneal fluid cx 02/17: 2.3k neuts no microrganisms, no yeast or hyphae -Repeat PD fluid screen 02/20 vastly improved w/ total cell count of only 8 -Prior to transfer was on IV Vanc/Cefe -Elevated CRP 25, Procal 11 -Neg lactic acid --Transplant Nephro consult --Pharmacy consult --ID consult, TTE w/o veggies --Ceftazadime dwell 02/17, hold further given bacteremia --Vanc/Cefe 02/19 - 02/20 --Transitioned to Ancef 02/21 - 02/24 (total 7x days IV abx) --Will transition to PO Augmentin + Keflex 02/25-03/03 on DC of bacteremia --Will also need 7 more days of IP Cefazolin qhs (EOT 03/03) for peritonitis --CM and HD coordinator to help fax these instructions to [facility] --No PICC or midline in future --Repeat PD fluid studies 02/17, NGTD --Repeat Bcx pending, NGTD --IR consult for port removal 02/20 --Trend labs, VS; f/u Bcx, Ucx --UA + WBC, Leukocytes, but neg bacteria, neg nitrites; Ucx neg Assessment & Plan (02/24/2025 4:07 PM CDT): -Dx at OSH. This is culture-negative peritonitis based on cell count alone -OSH Bcx 02/14 E. coli (resistant to Bactrim); 02/16 MSSA (andujar-sensitive) as of 02/21 -OSH Peritoneal fluid cx 02/14: 800 neuts, NGTD (anaerobic or aerobic) as of 02/21 -[facility] Peritoneal fluid cx: 2.3k neuts no microrganisms, no yeast or hyphae -Prior to transfer was on IV Vanc/Cefe -Elevated CRP 25, Procal 11 -Neg lactic acid --Transplant Nephro consult --Pharmacy consult --ID consult, TTE w/o veggies --Ceftazadime dwell 02/17, hold further given bacteremia --Vanc/Cefe 02/19 - 02/20 --Transitioned to Ancef 02/21 - 02/24 (total 7x days IV abx) --Will transition to PO Augmentin + Keflex 02/25-03/03 on DC of bacteremia --Will also need 7 more days of IP Cefazolin qhs (EOT 03/03) for peritonitis --CM and HD coordinator to help fax these instructions to [facility] --No PICC or midline in future --Repeat PD fluid studies 02/17, NGTD --Repeat Bcx pending, NGTD --IR consult for port removal 02/20 --Trend labs, VS; f/u Bcx, Ucx --UA + WBC, Leukocytes, but neg bacteria, neg nitrites; Ucx neg Assessment & Plan (02/23/2025 2:17 PM CDT): -Dx at OSH. Possible colonization of PD cath. -OSH Bcx 02/14 E. coli (resistant to Bactrim); 02/16 MSSA (andujar-sensitive) as of 02/21 -OSH Peritoneal fluid cx 02/14: 800 neuts, NGTD (anaerobic or aerobic) as of 02/21 -[facility] Peritoneal fluid cx: 2.3k neuts no microrganisms, no yeast or hyphae -Prior to transfer was on IV Vanc/Cefe -Elevated CRP 25, Procal 11 -Neg lactic acid --Transplant Nephro consult --Pharmacy consult --ID consult, TTE w/o veggies --Ceftazadime dwell 02/17, hold further given bacteremia --Vanc/Cefe 02/19 - 02/20 --Transitioned to Ancef 02/21 - 02/24 (total 7x days IV abx) --Will transition to PO Augmentin + Keflex 02/25-03/03 on DC --Midline placed but will be removed after abx complete --No PICC or midline in future --[facility] order placed 02/22, but will plan to DC this --Repeat PD fluid studies 02/17, NGTD --Repeat Bcx pending, NGTD --IR consult for port removal 02/20 --Trend labs, VS; f/u Bcx, Ucx --UA + WBC, Leukocytes, but neg bacteria, neg nitrites; Ucx neg Assessment & Plan (02/22/2025 2:59 PM CDT): -Dx at OSH. Possible colonization of PD cath. -OSH Bcx 02/14 E. coli (resistant to Bactrim); 02/16 MSSA (andujar-sensitive) as of 02/21 -OSH Peritoneal fluid cx 02/14: 800 neuts, NGTD (anaerobic or aerobic) as of 02/21 -[facility] Peritoneal fluid cx: 2.3k neuts no microrganisms, no yeast or hyphae -Prior to transfer was on IV Vanc/Cefe -Elevated CRP 25, Procal 11 -Neg lactic acid --Transplant Nephro consult --Pharmacy consult --ID consult, TTE w/o veggies --Ceftazadime dwell 02/17, hold further given bacteremia --Vanc/Cefe 02/19 - 02/20 --Transitioned to Ancef 02/21 - 03/03 --If OPAT, will need powerline per nephro --Consider 7x days IV abx, then transition to PO x7d --[facility] order placed 02/22, unlikely available training until 02/24 --Repeat PD fluid studies 02/17, NGTD --Repeat Bcx pending, NGTD --IR consult for port removal 02/20 --Trend labs, VS; f/u Bcx, Ucx --UA + WBC, Leukocytes, but neg bacteria, neg nitrites; Ucx neg Assessment & Plan (02/21/2025 1:16 PM CDT): -Dx at OSH. Possible colonization of PD cath. -OSH Bcx 02/14 E. coli (resistant to Bactrim); 02/16 MSSA (andujar-sensitive) as of 02/21 -OSH Peritoneal fluid cx 02/14: 800 neuts, NGTD (anaerobic or aerobic) as of 02/21 -U Peritoneal fluid cx: 2.3k neuts no microrganisms, no yeast or hyphae -Prior to transfer was on IV Vanc/Cefe -Elevated CRP 25, Procal 11 -Neg lactic acid --Transplant Nephro consult --Pharmacy consult --ID consult, pending TTE --Ceftazadime dwell 02/17, hold further given bacteremia --Vanc/Cefe 02/19 - 02/20 --Transitioned to Ancef 02/21 - ? --Repeat PD fluid studies 02/17, NGTD --Repeat Bcx pending, NGTD --IR consult for port removal 02/20 --Trend labs, VS; f/u Bcx, Ucx --UA + WBC, Leukocytes, but neg bacteria, neg nitrites; Ucx neg Assessment & Plan (02/20/2025 2:40 PM CDT): -Dx at OSH. Possible colonization of PD cath. -OSH Bcx E. coli (andujar-sensitive); Staph -OSH Peritoneal fluid cx: 800 neuts, cultures pending -[facility] Peritoneal fluid cx: 2.3k neuts no microrganisms, no yeast or hyphae -Prior to transfer was on IV Vanc/Cefe -Elevated CRP 25, Procal 11 -Neg lactic acid --Transplant Nephro consult --Pharmacy consult --ID consult, pending TTE --Ceftazadime dwell 02/17, hold further given bacteremia --Restart Vanc/Cefe 02/19 - ? --Repeat PD fluid studies 02/17, pending final --Repeat Bcx pending, NGTD --IR consult for port removal 02/20 --Trend labs, VS; f/u Bcx, Ucx --UA + WBC, Leukocytes, but neg bacteria, neg nitrites; Ucx neg Assessment & Plan (02/19/2025 3:20 PM CDT): -Dx at OSH. Possible colonization of PD cath. -OSH Bcx E. coli (andujar-sensitive); Staph -OSH Peritoneal fluid cx: 800 neuts, cultures pending -[facility] Peritoneal fluid cx: 2.3k neuts no microrganisms, no yeast or hyphae -Prior to transfer was on IV Vanc/Cefe -Elevated CRP 25, Procal 11 -Neg lactic acid --Transplant Nephro consult --Pharmacy consult --ID consult, pending TTE --Ceftazadime dwell 02/17, hold further given bacteremia --Restart Vanc/Cefe 02/19 - ? --Repeat PD fluid studies 02/17, pending final --Repeat Bcx pending, NGTD --IR consult for port removal --Trend labs, VS; f/u Bcx, Ucx --UA + WBC, Leukocytes, but neg bacteria, neg nitrites; Ucx neg Bacteremia due to Staphylococcus 02/19/2025 Assessment & Plan (02/24/2025 5:01 PM CDT): -Dx at OSH. This is culture-negative peritonitis based on cell count alone -OSH Bcx 02/14 E. coli (resistant to Bactrim); 02/16 MSSA (andujar-sensitive) as of 02/21 -OSH Peritoneal fluid cx 02/14: 800 neuts, NGTD (anaerobic or aerobic) as of 02/21 -[facility] Peritoneal fluid cx 02/17: 2.3k neuts no microrganisms, no yeast or hyphae -Repeat PD fluid screen 02/20 vastly improved w/ total cell count of only 8 -Prior to transfer was on IV Vanc/Cefe -Elevated CRP 25, Procal 11 -Neg lactic acid --Transplant Nephro consult --Pharmacy consult --ID consult, TTE w/o veggies --Ceftazadime dwell 02/17, hold further given bacteremia --Vanc/Cefe 02/19 - 02/20 --Transitioned to Ancef 02/21 - 02/24 (total 7x days IV abx) --Will transition to PO Augmentin + Keflex 02/25-03/03 on DC of bacteremia --Will also need 7 more days of IP Cefazolin qhs (EOT 03/03) for peritonitis --CM and HD coordinator to help fax these instructions to [facility] --No PICC or midline in future --Repeat PD fluid studies 02/17, NGTD --Repeat Bcx pending, NGTD --IR consult for port removal 02/20 --Trend labs, VS; f/u Bcx, Ucx --UA + WBC, Leukocytes, but neg bacteria, neg nitrites; Ucx neg Assessment & Plan (02/24/2025 4:07 PM CDT): -Dx at OSH. This is culture-negative peritonitis based on cell count alone -OSH Bcx 02/14 E. coli (resistant to Bactrim); 02/16 MSSA (andujar-sensitive) as of 02/21 -OSH Peritoneal fluid cx 02/14: 800 neuts, NGTD (anaerobic or aerobic) as of 02/21 -[facility] Peritoneal fluid cx: 2.3k neuts no microrganisms, no yeast or hyphae -Prior to transfer was on IV Vanc/Cefe -Elevated CRP 25, Procal 11 -Neg lactic acid --Transplant Nephro consult --Pharmacy consult --ID consult, TTE w/o veggies --Ceftazadime dwell 02/17, hold further given bacteremia --Vanc/Cefe 02/19 - 02/20 --Transitioned to Ancef 02/21 - 02/24 (total 7x days IV abx) --Will transition to PO Augmentin + Keflex 02/25-03/03 on DC of bacteremia --Will also need 7 more days of IP Cefazolin qhs (EOT 03/03) for peritonitis --CM and HD coordinator [facility] --No PICC or midline in future --Repeat PD fluid studies 02/17, NGTD --Repeat Bcx pending, NGTD --IR consult for port removal 02/20 --Trend labs, VS; f/u Bcx, Ucx --UA + WBC, Leukocytes, but neg bacteria, neg nitrites; Ucx neg Assessment & Plan (02/23/2025 2:17 PM CDT): -Dx at OSH. Possible colonization of PD cath. -OSH Bcx 02/14 E. coli (resistant to Bactrim); 02/16 MSSA (andujar-sensitive) as of 02/21 -OSH Peritoneal fluid cx 02/14: 800 neuts, NGTD (anaerobic or aerobic) as of 02/21 -[facility] Peritoneal fluid cx: 2.3k neuts no microrganisms, no yeast or hyphae -Prior to transfer was on IV Vanc/Cefe -Elevated CRP 25, Procal 11 -Neg lactic acid --Transplant Nephro consult --Pharmacy consult --ID consult, TTE w/o veggies --Ceftazadime dwell 02/17, hold further given bacteremia --Vanc/Cefe 02/19 - 02/20 --Transitioned to Ancef 02/21 - 02/24 (total 7x days IV abx) --Will transition to PO Augmentin + Keflex 02/25-03/03 on DC --Midline placed but will be removed after abx complete --No PICC or midline in future --[facility] order placed 02/22, but will plan to DC this --Repeat PD fluid studies 02/17, NGTD --Repeat Bcx pending, NGTD --IR consult for port removal 02/20 --Trend labs, VS; f/u Bcx, Ucx --UA + WBC, Leukocytes, but neg bacteria, neg nitrites; Ucx neg Assessment & Plan (02/22/2025 2:59 PM CDT): -Dx at OSH. Possible colonization of PD cath. -OSH Bcx 02/14 E. coli (resistant to Bactrim); 02/16 MSSA (andujar-sensitive) as of 02/21 -OSH Peritoneal fluid cx 02/14: 800 neuts, NGTD (anaerobic or aerobic) as of 02/21 -[facility] Peritoneal fluid cx: 2.3k neuts no microrganisms, no yeast or hyphae -Prior to transfer was on IV Vanc/Cefe -Elevated CRP 25, Procal 11 -Neg lactic acid --Transplant Nephro consult --Pharmacy consult --ID consult, TTE w/o veggies --Ceftazadime dwell 02/17, hold further given bacteremia --Vanc/Cefe 02/19 - 02/20 --Transitioned to Ancef 02/21 - 03/03 --If OPAT, will need powerline per nephro --Consider 7x days IV abx, then transition to PO x7d --[facility] order placed 02/22, unlikely available training until 02/24 --Repeat PD fluid studies 02/17, NGTD --Repeat Bcx pending, NGTD --IR consult for port removal 02/20 --Trend labs, VS; f/u Bcx, Ucx --UA + WBC, Leukocytes, but neg bacteria, neg nitrites; Ucx neg Assessment & Plan (02/21/2025 1:16 PM CDT): -Dx at OSH. Possible colonization of PD cath. -OSH Bcx 02/14 E. coli (resistant to Bactrim); 02/16 MSSA (andujar-sensitive) as of 02/21 -OSH Peritoneal fluid cx 02/14: 800 neuts, NGTD (anaerobic or aerobic) as of 02/21 -[facility] Peritoneal fluid cx: 2.3k neuts no microrganisms, no yeast or hyphae -Prior to transfer was on IV Vanc/Cefe -Elevated CRP 25, Procal 11 -Neg lactic acid --Transplant Nephro consult --Pharmacy consult --ID consult, pending TTE --Ceftazadime dwell 02/17, hold further given bacteremia --Vanc/Cefe 02/19 - 02/20 --Transitioned to Ancef 02/21 - ? --Repeat PD fluid studies 02/17, NGTD --Repeat Bcx pending, NGTD --IR consult for port removal 02/20 --Trend labs, VS; f/u Bcx, Ucx --UA + WBC, Leukocytes, but neg bacteria, neg nitrites; Ucx neg Assessment & Plan (02/20/2025 2:40 PM CDT): -Dx at OSH. Possible colonization of PD cath. -OSH Bcx E. coli (andujar-sensitive); Staph -OSH Peritoneal fluid cx: 800 neuts, cultures pending -[facility] Peritoneal fluid cx: 2.3k neuts no microrganisms, no yeast or hyphae -Prior to transfer was on IV Vanc/Cefe -Elevated CRP 25, Procal 11 -Neg lactic acid --Transplant Nephro consult --Pharmacy consult --ID consult, pending TTE --Ceftazadime dwell 02/17, hold further given bacteremia --Restart Vanc/Cefe 02/19 - ? --Repeat PD fluid studies 02/17, pending final --Repeat Bcx pending, NGTD --IR consult for port removal 02/20 --Trend labs, VS; f/u Bcx, Ucx --UA + WBC, Leukocytes, but neg bacteria, neg nitrites; Ucx neg Assessment & Plan (02/19/2025 3:20 PM CDT): -Dx at OSH. Possible colonization of PD cath. -OSH Bcx E. coli (andujar-sensitive); Staph -OSH Peritoneal fluid cx: 800 neuts, cultures pending -[facility] Peritoneal fluid cx: 2.3k neuts no microrganisms, no yeast or hyphae -Prior to transfer was on IV Vanc/Cefe -Elevated CRP 25, Procal 11 -Neg lactic acid --Transplant Nephro consult --Pharmacy consult --ID consult, pending TTE --Ceftazadime dwell 02/17, hold further given bacteremia --Restart Vanc/Cefe 02/19 - ? --Repeat PD fluid studies 02/17, pending final --Repeat Bcx pending, NGTD --IR consult for port removal --Trend labs, VS; f/u Bcx, Ucx --UA + WBC, Leukocytes, but neg bacteria, neg nitrites; Ucx neg History of sinus tachycardia 02/18/2025 Assessment & Plan (02/24/2025 5:01 PM CDT): -Patient has been prescribed Metoprolol Succinate BID (confirmed that it is not daily) for >2 years for what appears to be intermittent sinus tachy. Possibly around dialysis days when on HD. Possible orthostatic mediated given positional sxs when I asked the patient. -Pt follow w/ OP cards (last 09/2024): Per last note, confirmed she is taking BOTH nifedipine and diltiazem together. --Cont. sales route driver helper metop (increased to BID as prescribed), bumex, Doxazosin qhs --02/18: restart sales route driver helper Dilt --02/22: restart sales route driver helper Nifedipine (confirmed taking 30 BID at home) Assessment & Plan (02/24/2025 4:07 PM CDT): -Patient has been prescribed Metoprolol Succinate BID (confirmed that it is not daily) for >2 years for what appears to be intermittent sinus tachy. Possibly around dialysis days when on HD. Possible orthostatic mediated given positional sxs when I asked the patient. -Pt follow w/ OP cards (last 09/2024): Per last note, confirmed she is taking BOTH nifedipine and diltiazem together. --Cont. sales route driver helper metop (increased to BID as prescribed), bumex, Doxazosin qhs --02/18: restart sales route driver helper Dilt --02/22: restart sales route driver helper Nifedipine (confirmed taking 30 BID at home) Assessment & Plan (02/23/2025 2:17 PM CDT): -Patient has been prescribed Metoprolol Succinate BID (confirmed that it is not daily) for >2 years for what appears to be intermittent sinus tachy. Possibly around dialysis days when on HD. Possible orthostatic mediated given positional sxs when I asked the patient. -Pt follow w/ OP cards (last 09/2024): Per last note, confirmed she is taking BOTH nifedipine and diltiazem together. --Cont. sales route driver helper metop (increased to BID as prescribed), bumex, Doxazosin qhs --02/18: restart sales route driver helper Dilt --02/22: restart sales route driver helper Nifedipine (confirmed taking 30 BID at home) Assessment & Plan (02/22/2025 2:59 PM CDT): -Patient has been prescribed Metoprolol Succinate BID (confirmed that it is not daily) for >2 years for what appears to be intermittent sinus tachy. Possibly around dialysis days when on HD. Possible orthostatic mediated given positional sxs when I asked the patient. -Pt follow w/ OP cards (last 09/2024): Per last note, confirmed she is taking BOTH nifedipine and diltiazem together. --Cont. sales route driver helper metop (increased to BID as prescribed), bumex, Doxazosin qhs --02/18: restart sales route driver helper Dilt --02/22: restart sales route driver helper Nifedipine (confirmed taking 30 BID at home) Assessment & Plan (02/21/2025 1:07 PM CDT): -Patient has been prescribed Metoprolol Succinate BID (confirmed that it is not daily) for >2 years for what appears to be intermittent sinus tachy. Possibly around dialysis days when on HD. Possible orthostatic mediated given positional sxs when I asked the patient. --Cont. sales route driver helper metop (increased to BID as prescribed), bumex, Doxazosin qhs --02/18: restart sales route driver helper Dilt --Consider additional agents if persistently SBP >160s Assessment & Plan (02/20/2025 2:40 PM CDT): -Patient has been prescribed Metoprolol Succinate BID (confirmed that it is not daily) for >2 years for what appears to be intermittent sinus tachy. Possibly around dialysis days when on HD. Possible orthostatic mediated given positional sxs when I asked the patient. --Cont. sales route driver helper metop (increased to BID as prescribed), bumex, Doxazosin qhs --02/18: restart sales route driver helper Dilt --Consider additional agents if persistently SBP >160s Assessment & Plan (02/19/2025 3:20 PM CDT): -Patient has been prescribed Metoprolol Succinate BID (confirmed that it is not daily) for >2 years for what appears to be intermittent sinus tachy. Possibly around dialysis days when on HD. Possible orthostatic mediated given positional sxs when I asked the patient. --Cont. sales route driver helper metop (increased to BID as prescribed), bumex, Doxazosin qhs --02/18: restart sales route driver helper Dilt --Consider additional agents if persistently SBP >160s Assessment & Plan (02/18/2025 2:21 PM CDT): -Patient has been prescribed Metoprolol Succinate BID (confirmed that it is not daily) for >2 years for what appears to be intermittent sinus tachy. Possibly around dialysis days when on HD. Possible orthostatic mediated given positional sxs when I asked the patient. --Cont. sales route driver helper metop (increased to BID as prescribed), bumex, Doxazosin qhs --Consider additional agents if persistently SBP >160s Acute hypoxemic respiratory failure 02/17/2025 Assessment & Plan (02/24/2025 5:01 PM CDT): Ddx: Unclear. Possibly related to discrete fluid overload (no significant peripheral edema). -On RA satting 87-88%, improved w/ 2L O2. C/f nocturnal desats. -Currently: 1L NC -Home UF 1-1.5L per night --CXR 02/17 favors edema vs. pna --Automation Mechanic bumex. 1x IV Lasix 40 02/20, 02/21. --Will ask nephro to increase UF as able --PT walk study prior to DC 02/24 -- unremarkable --Consider OP sleep study if not previously performed Assessment & Plan (02/24/2025 4:07 PM CDT): Ddx: Unclear. Possibly related to discrete fluid overload (no significant peripheral edema). -On RA satting 87-88%, improved w/ 2L O2. C/f nocturnal desats. -Currently: 1L NC -Home UF 1-1.5L per night --CXR 02/17 favors edema vs. pna --Automation Mechanic bumex. 1x IV Lasix 40 02/20, 02/21. --Will ask nephro to increase UF as able --PT walk study prior to DC 02/24 -- unremarkable --Consider OP sleep study if not previously performed Assessment & Plan (02/23/2025 2:17 PM CDT): Ddx: Unclear. Possibly related to discrete fluid overload (no significant peripheral edema). -On RA satting 87-88%, improved w/ 2L O2. C/f nocturnal desats. -Currently: 1L NC -Home UF 1-1.5L per night --CXR 02/17 favors edema vs. pna --Automation Mechanic bumex. 1x IV Lasix 40 02/20, 02/21. --Will ask nephro to increase UF as able --Nocturnal desat study 02/23-02/24, RT notified 02/23 --PT walk study prior to DC 02/24 --OP sleep study if not previously performed Assessment & Plan (02/22/2025 2:59 PM CDT): Ddx: Unclear. Possibly related to discrete fluid overload (no significant peripheral edema). -On RA satting 87-88%, improved w/ 2L O2. C/f nocturnal desats. -Currently: 1L NC -Home UF 1-1.5L per night --CXR 02/17 favors edema vs. pna --Automation Mechanic bumex. 1x IV Lasix 40 02/20, 02/21. --Will ask nephro to increase UF if possible --Nocturnal desat study prior to DC --PT walk study prior to DC --OP sleep study if not previously performed Assessment & Plan (02/21/2025 1:16 PM CDT): Ddx: Unclear. Possibly related to discrete fluid overload (no significant peripheral edema). -On RA satting 87-88%, improved w/ 2L O2. C/f nocturnal desats. -Currently: 1L NC -Home UF 1-1.5L per night --CXR 02/17 favors edema vs. pna --Automation Mechanic bumex. 1x IV Lasix 40 02/20. --Will ask nephro to increase UF if possible --Nocturnal desat study prior to DC --PT walk study prior to DC --OP sleep study if not previously performed Assessment & Plan (02/20/2025 2:40 PM CDT): Ddx: Unclear. Possibly related to discrete fluid overload (no significant peripheral edema). -On RA satting 87-88%, improved w/ 2L O2. C/f nocturnal desats. -Currently: 1L NC --CXR 02/17 favors edema vs. pna --Automation Mechanic bumex. 1x IV Lasix 40 02/20. --Will ask nephro to increase UF if possible --Nocturnal desat study prior to DC --PT walk study prior to DC --OP sleep study if not previously performed Assessment & Plan (02/19/2025 3:22 PM CDT): Ddx: Unclear. Possibly related to discrete fluid overload (no significant peripheral edema). -On RA satting 87-88%, improved w/ 2L O2. C/f nocturnal desats. -Currently: 1L NC --CXR 02/17 favors edema vs. pna --Automation Mechanic bumex. Consider 1x IV. --Nocturnal desat study --Consider PT walk study prior to DC --OP sleep study if not previously performed Assessment & Plan (02/18/2025 2:21 PM CDT): Ddx: Unclear. Possibly related to discrete fluid overload (no significant peripheral edema). -On RA satting 87-88%, improved w/ 2L O2 -Currently: 1L NC --CXR 02/17 favors edema vs. pna --Automation Mechanic bumex. Consider 1x IV. Assessment & Plan (02/17/2025 5:00 PM CDT): Ddx: Unclear. Possibly related to discrete fluid overload (no significant peripheral edema). -On RA satting 87-88%, improved w/ 2L O2 --Check CXR to r/o PNA given above infectious sxs --Automation Mechanic bumex Hyponatremia 02/17/2025 Assessment & Plan (02/24/2025 5:01 PM CDT): -Txp 2018, Rejected 2021, HD via [facility] AVF through 09/2023 but had frequent obstructions, switched to PD. Possible prior peritonitis 09/2024 but patient unclear for sure. -Neg w/u: Lactic acid --Transplant nephro consult, transplant kidney U/S unremarkable --Cont. PD --Automation Mechanic Calcitriol, Cinacalcet --Phos binder started 02/18, incr to 1600 TID 02/21 --Trend labs, replete lytes prn --Patient request liberalization of diet 02/20. Assessment & Plan (02/24/2025 4:07 PM CDT): -Txp 2018, Rejected 2021, HD via [facility] through 09/2023 but had frequent obstructions, switched to PD. Possible prior peritonitis 09/2024 but patient unclear for sure. -Neg w/u: Lactic acid --Transplant nephro consult, transplant kidney U/S unremarkable --Cont. PD --Automation Mechanic Calcitriol, Cinacalcet --Phos binder started 02/18, incr to 1600 TID 02/21 --Trend labs, replete lytes prn --Patient request liberalization of diet 02/20. Assessment & Plan (02/23/2025 2:17 PM CDT): -Txp 2018, Rejected 2021, HD via [facility] AVF through 09/2023 but had frequent obstructions, switched to PD. Possible prior peritonitis 09/2024 but patient unclear for sure. -Neg w/u: Lactic acid --Transplant nephro consult, transplant kidney U/S unremarkable --Restart PD 02/17 --Automation Mechanic Calcitriol, Cinacalcet --Phos binder started 02/18, incr to 1600 TID 02/21 --Trend labs, replete lytes prn --Patient request liberalization of diet 02/20. Assessment & Plan (02/22/2025 2:59 PM CDT): -Txp 2018, Rejected 2021, HD via [facility] through 09/2023 but had frequent obstructions, switched to PD. Possible prior peritonitis 09/2024 but patient unclear for sure. -Neg w/u: Lactic acid --Transplant nephro consult, transplant kidney U/S unremarkable --Restart PD 02/17 --Automation Mechanic Calcitriol, Cinacalcet --Phos binder started 02/18, incr to 1600 TID 02/21 --Trend labs, replete lytes prn --Patient request liberalization of diet 02/20. --If needs OPAT, will need powerline, not midline Assessment & Plan (02/21/2025 1:16 PM CDT): -Txp 2018, Rejected 2021, HD via [facility] through 09/2023 but had frequent obstructions, switched to PD. Possible prior peritonitis 09/2024 but patient unclear for sure. -Neg w/u: Lactic acid --Transplant nephro consult, transplant kidney U/S unremarkable --Restart PD 02/17 --Automation Mechanic Calcitriol, Cinacalcet --Phos binder started 02/18, consider increase as level remains >7 --Trend labs, replete lytes prn --Patient request liberalization of diet 02/20. Assessment & Plan (02/20/2025 2:40 PM CDT): -Txp 2018, Rejected 2021, HD via [facility] through 09/2023 but had frequent obstructions, switched to PD. Possible prior peritonitis 09/2024 but patient unclear for sure. -Neg w/u: Lactic acid --Transplant nephro consult, transplant kidney U/S unremarkable --Restart PD 02/17 --Automation Mechanic Calcitriol, Cinacalcet --Phos binder started 02/18 --Trend labs, replete lytes prn --Patient request liberalization. Assessment & Plan (02/19/2025 3:20 PM CDT): -Txp 2018, Rejected 2021, HD via [facility] through 09/2023 but had frequent obstructions, switched to PD. Possible prior peritonitis 09/2024 but patient unclear for sure. -Neg w/u: Lactic acid --Transplant nephro consult, transplant kidney U/S unremarkable --Restart PD 02/17 --Automation Mechanic Calcitriol, Cinacalcet --Phos binder started 02/18 --Trend labs, replete lytes prn --Phos restricted diet. Otherwise patient request liberalization. Assessment & Plan (02/18/2025 2:21 PM CDT): -Txp 2018, Rejected 2021, HD via [facility] through 09/2023 but had frequent obstructions, switched to PD. Possible prior peritonitis 09/2024 but patient unclear for sure. -Neg w/u: Lactic acid --Transplant nephro consult, check transplant kidney U/S --Restart PD 02/17 --Automation Mechanic Calcitriol, Cinacalcet --Consider phos binder --Trend labs, replete lytes prn --Phos restricted diet. Otherwise patient request liberalization. Assessment & Plan (02/17/2025 5:00 PM CDT): -Txp 2018, Rejected 2021, HD via [facility] through 09/2023 but had frequent obstructions, switched to PD. Possible prior peritonitis 09/2024 but patient unclear for sure. -Neg w/u: Lactic acid --Transplant nephro consult --Restart PD 02/17 --Automation Mechanic Calcitriol, Cinacalcet --Trend labs High anion gap metabolic acidosis 02/17/2025 Assessment & Plan (02/24/2025 5:01 PM CDT): -Txp 2018, Rejected 2021, HD via [facility] through 09/2023 but had frequent obstructions, switched to PD. Possible prior peritonitis 09/2024 but patient unclear for sure. -Neg w/u: Lactic acid --Transplant nephro consult, transplant kidney U/S unremarkable --Cont. PD --Automation Mechanic Calcitriol, Cinacalcet --Phos binder started 02/18, incr to 1600 TID 02/21 --Trend labs, replete lytes prn --Patient request liberalization of diet 02/20. Assessment & Plan (02/24/2025 4:07 PM CDT): -Txp 2018, Rejected 2021, HD via [facility] AV[facility] through 09/2023 but had frequent obstructions, switched to PD. Possible prior peritonitis 09/2024 but patient unclear for sure. -Neg w/u: Lactic acid --Transplant nephro consult, transplant kidney U/S unremarkable --Cont. PD --Automation Mechanic Calcitriol, Cinacalcet --Phos binder started 02/18, incr to 1600 TID 02/21 --Trend labs, replete lytes prn --Patient request liberalization of diet 02/20. Assessment & Plan (02/23/2025 2:17 PM CDT): -Txp 2018, Rejected 2021, HD via [facility] AV[facility] through 09/2023 but had frequent obstructions, switched to PD. Possible prior peritonitis 09/2024 but patient unclear for sure. -Neg w/u: Lactic acid --Transplant nephro consult, transplant kidney U/S unremarkable --Restart PD 02/17 --Automation Mechanic Calcitriol, Cinacalcet --Phos binder started 02/18, incr to 1600 TID 02/21 --Trend labs, replete lytes prn --Patient request liberalization of diet 02/20. Assessment & Plan (02/22/2025 2:59 PM CDT): -Txp 2018, Rejected 2021, HD via [facility] AV[facility] through 09/2023 but had frequent obstructions, switched to PD. Possible prior peritonitis 09/2024 but patient unclear for sure. -Neg w/u: Lactic acid --Transplant nephro consult, transplant kidney U/S unremarkable --Restart PD 02/17 --Automation Mechanic Calcitriol, Cinacalcet --Phos binder started 02/18, incr to 1600 TID 02/21 --Trend labs, replete lytes prn --Patient request liberalization of diet 02/20. --If needs OPAT, will need powerline, not midline Assessment & Plan (02/21/2025 1:16 PM CDT): -Txp 2018, Rejected 2021, HD via [facility] AVF through 09/2023 but had frequent obstructions, switched to PD. Possible prior peritonitis 09/2024 but patient unclear for sure. -Neg w/u: Lactic acid --Transplant nephro consult, transplant kidney U/S unremarkable --Restart PD 02/17 --Automation Mechanic Calcitriol, Cinacalcet --Phos binder started 02/18, consider increase as level remains >7 --Trend labs, replete lytes prn --Patient request liberalization of diet 02/20. Assessment & Plan (02/20/2025 2:40 PM CDT): -Txp 2018, Rejected 2021, HD via [facility] AV[facility] through 09/2023 but had frequent obstructions, switched to PD. Possible prior peritonitis 09/2024 but patient unclear for sure. -Neg w/u: Lactic acid --Transplant nephro consult, transplant kidney U/S unremarkable --Restart PD 02/17 --Automation Mechanic Calcitriol, Cinacalcet --Phos binder started 02/18 --Trend labs, replete lytes prn --Patient request liberalization. Assessment & Plan (02/19/2025 3:20 PM CDT): -Txp 2018, Rejected 2021, HD via [facility] AVF through 09/2023 but had frequent obstructions, switched to PD. Possible prior peritonitis 09/2024 but patient unclear for sure. -Neg w/u: Lactic acid --Transplant nephro consult, transplant kidney U/S unremarkable --Restart PD 02/17 --Automation Mechanic Calcitriol, Cinacalcet --Phos binder started 02/18 --Trend labs, replete lytes prn --Phos restricted diet. Otherwise patient request liberalization. Assessment & Plan (02/18/2025 2:21 PM CDT): -Txp 2018, Rejected 2021, HD via [facility] AV[facility] through 09/2023 but had frequent obstructions, switched to PD. Possible prior peritonitis 09/2024 but patient unclear for sure. -Neg w/u: Lactic acid --Transplant nephro consult, check transplant kidney U/S --Restart PD 02/17 --Automation Mechanic Calcitriol, Cinacalcet --Consider phos binder --Trend labs, replete lytes prn --Phos restricted diet. Otherwise patient request liberalization. Assessment & Plan (02/17/2025 5:00 PM CDT): -Txp 2018, Rejected 2021, HD via [facility] AV[facility] through 09/2023 but had frequent obstructions, switched to PD. Possible prior peritonitis 09/2024 but patient unclear for sure. -Neg w/u: Lactic acid --Transplant nephro consult --Restart PD 02/17 --Automation Mechanic Calcitriol, Cinacalcet --Trend labs Hyperphosphatemia 02/17/2025 Assessment & Plan (02/24/2025 5:01 PM CDT): -Txp 2018, Rejected 2021, HD via [facility] AVF through 09/2023 but had frequent obstructions, switched to PD. Possible prior peritonitis 09/2024 but patient unclear for sure. -Neg w/u: Lactic acid --Transplant nephro consult, transplant kidney U/S unremarkable --Cont. PD --Automation Mechanic Calcitriol, Cinacalcet --Phos binder started 02/18, incr to 1600 TID 02/21 --Trend labs, replete lytes prn --Patient request liberalization of diet 02/20. Assessment & Plan (02/24/2025 4:07 PM CDT): -Txp 2018, Rejected 2021, HD via [facility] AV[facility] through 09/2023 but had frequent obstructions, switched to PD. Possible prior peritonitis 09/2024 but patient unclear for sure. -Neg w/u: Lactic acid --Transplant nephro consult, transplant kidney U/S unremarkable --Cont. PD --Automation Mechanic Calcitriol, Cinacalcet --Phos binder started 02/18, incr to 1600 TID 02/21 --Trend labs, replete lytes prn --Patient request liberalization of diet 02/20. Assessment & Plan (02/23/2025 2:17 PM CDT): -Txp 2018, Rejected 2021, HD via [facility] AV[facility] through 09/2023 but had frequent obstructions, switched to PD. Possible prior peritonitis 09/2024 but patient unclear for sure. -Neg w/u: Lactic acid --Transplant nephro consult, transplant kidney U/S unremarkable --Restart PD 02/17 --Automation Mechanic Calcitriol, Cinacalcet --Phos binder started 02/18, incr to 1600 TID 02/21 --Trend labs, replete lytes prn --Patient request liberalization of diet 02/20. Assessment & Plan (02/22/2025 2:59 PM CDT): -Txp 2018, Rejected 2021, HD via [facility] AVF through 09/2023 but had frequent obstructions, switched to PD. Possible prior peritonitis 09/2024 but patient unclear for sure. -Neg w/u: Lactic acid --Transplant nephro consult, transplant kidney U/S unremarkable --Restart PD 02/17 --Automation Mechanic Calcitriol, Cinacalcet --Phos binder started 02/18, incr to 1600 TID 02/21 --Trend labs, replete lytes prn --Patient request liberalization of diet 02/20. --If needs OPAT, will need powerline, not midline Assessment & Plan (02/21/2025 1:16 PM CDT): -Txp 2018, Rejected 2021, HD via [facility] AVF through 09/2023 but had frequent obstructions, switched to PD. Possible prior peritonitis 09/2024 but patient unclear for sure. -Neg w/u: Lactic acid --Transplant nephro consult, transplant kidney U/S unremarkable --Restart PD 02/17 --Automation Mechanic Calcitriol, Cinacalcet --Phos binder started 02/18, consider increase as level remains >7 --Trend labs, replete lytes prn --Patient request liberalization of diet 02/20. Assessment & Plan (02/20/2025 2:40 PM CDT): -Txp 2018, Rejected 2021, HD via [facility] AVF through 09/2023 but had frequent obstructions, switched to PD. Possible prior peritonitis 09/2024 but patient unclear for sure. -Neg w/u: Lactic acid --Transplant nephro consult, transplant kidney U/S unremarkable --Restart PD 02/17 --Automation Mechanic Calcitriol, Cinacalcet --Phos binder started 02/18 --Trend labs, replete lytes prn --Patient request liberalization. Assessment & Plan (02/19/2025 3:20 PM CDT): -Txp 2018, Rejected 2021, HD via [facility] AVF through 09/2023 but had frequent obstructions, switched to PD. Possible prior peritonitis 09/2024 but patient unclear for sure. -Neg w/u: Lactic acid --Transplant nephro consult, transplant kidney U/S unremarkable --Restart PD 02/17 --Automation Mechanic Calcitriol, Cinacalcet --Phos binder started 02/18 --Trend labs, replete lytes prn --Phos restricted diet. Otherwise patient request liberalization. Assessment & Plan (02/18/2025 2:21 PM CDT): -Txp 2018, Rejected 2021, HD via [facility] AVF through 09/2023 but had frequent obstructions, switched to PD. Possible prior peritonitis 09/2024 but patient unclear for sure. -Neg w/u: Lactic acid --Transplant nephro consult, check transplant kidney U/S --Restart PD 02/17 --Automation Mechanic Calcitriol, Cinacalcet --Consider phos binder --Trend labs, replete lytes prn --Phos restricted diet. Otherwise patient request liberalization. Assessment & Plan (02/17/2025 5:00 PM CDT): -Txp 2018, Rejected 2021, HD via [facility] AVF through 09/2023 but had frequent obstructions, switched to PD. Possible prior peritonitis 09/2024 but patient unclear for sure. -Neg w/u: Lactic acid --Transplant nephro consult --Restart PD 02/17 --Automation Mechanic Calcitriol, Cinacalcet --Trend labs Hypoalbuminemia 02/17/2025 Assessment & Plan (02/24/2025 5:01 PM CDT): --Trend --Optimize nutrition Assessment & Plan (02/24/2025 4:07 PM CDT): --Trend --Optimize nutrition Assessment & Plan (02/23/2025 2:17 PM CDT): --Trend --Optimize nutrition Assessment & Plan (02/22/2025 2:59 PM CDT): --Trend --Optimize nutrition Assessment & Plan (02/21/2025 1:07 PM CDT): --Trend --Optimize nutrition Assessment & Plan (02/20/2025 2:40 PM CDT): --Trend --Optimize nutrition Assessment & Plan (02/19/2025 2:36 PM CDT): --Trend --Optimize nutrition Assessment & Plan (02/18/2025 2:21 PM CDT): --Trend --Optimize nutrition Assessment & Plan (02/17/2025 5:00 PM CDT): --Trend --Optimize nutrition Leukocytosis 02/17/2025 Assessment & Plan (02/24/2025 5:01 PM CDT): -Dx at OSH. This is culture-negative peritonitis based on cell count alone -[facility] Bcx 02/14 E. coli (resistant to Bactrim); 02/16 MSSA (andujar-sensitive) as of 02/21 -[facility] Peritoneal fluid cx 02/14: 800 neuts, NGTD (anaerobic or aerobic) as of 02/21 -[facility] Peritoneal fluid cx 02/17: 2.3k neuts no microrganisms, no yeast or hyphae -Repeat PD fluid screen 02/20 vastly improved w/ total cell count of only 8 -Prior to transfer was on IV Vanc/Cefe -Elevated CRP 25, Procal 11 -Neg lactic acid --Transplant Nephro consult --Pharmacy consult --ID consult, TTE w/o veggies --Ceftazadime dwell 02/17, hold further given bacteremia --Vanc/Cefe 02/19 - 02/20 --Transitioned to Ancef 02/21 - 02/24 (total 7x days IV abx) --Will transition to PO Augmentin + Keflex 02/25-03/03 on DC of bacteremia --Will also need 7 more days of IP Cefazolin qhs (EOT 03/03) for peritonitis --CM and HD coordinator to help fax these instructions to [facility] --No PICC or midline in future --Repeat PD fluid studies 02/17, NGTD --Repeat Bcx pending, NGTD --IR consult for port removal 02/20 --Trend labs, VS; f/u Bcx, Ucx --UA + WBC, Leukocytes, but neg bacteria, neg nitrites; Ucx neg Assessment & Plan (02/24/2025 4:07 PM CDT): -Dx at OSH. This is culture-negative peritonitis based on cell count alone -[facility] Bcx 02/14 E. coli (resistant to Bactrim); 02/16 MSSA (andujar-sensitive) as of 02/21 -[facility] Peritoneal fluid cx 02/14: 800 neuts, NGTD (anaerobic or aerobic) as of 02/21 -[facility] Peritoneal fluid cx: 2.3k neuts no microrganisms, no yeast or hyphae -Prior to transfer was on IV Vanc/Cefe -Elevated CRP 25, Procal 11 -Neg lactic acid --Transplant Nephro consult --Pharmacy consult --ID consult, TTE w/o veggies --Ceftazadime dwell 02/17, hold further given bacteremia --Vanc/Cefe 02/19 - 02/20 --Transitioned to Ancef 02/21 - 02/24 (total 7x days IV abx) --Will transition to PO Augmentin + Keflex 02/25-03/03 on DC of bacteremia --Will also need 7 more days of IP Cefazolin qhs (EOT 03/03) for peritonitis --CM and HD coordinator to help fax these instructions to [facility] --No PICC or midline in future --Repeat PD fluid studies 02/17, NGTD --Repeat Bcx pending, NGTD --IR consult for port removal 02/20 --Trend labs, VS; f/u Bcx, Ucx --UA + WBC, Leukocytes, but neg bacteria, neg nitrites; Ucx neg Assessment & Plan (02/23/2025 2:17 PM CDT): -Dx at OSH. Possible colonization of PD cath. -[facility] Bcx 02/14 E. coli (resistant to Bactrim); 02/16 MSSA (andujar-sensitive) as of 02/21 -[facility] Peritoneal fluid cx 02/14: 800 neuts, NGTD (anaerobic or aerobic) as of 02/21 -[facility] Peritoneal fluid cx: 2.3k neuts no microrganisms, no yeast or hyphae -Prior to transfer was on IV Vanc/Cefe -Elevated CRP 25, Procal 11 -Neg lactic acid --Transplant Nephro consult --Pharmacy consult --ID consult, TTE w/o veggies --Ceftazadime dwell 02/17, hold further given bacteremia --Vanc/Cefe 02/19 - 02/20 --Transitioned to Ancef 02/21 - 02/24 (total 7x days IV abx) --Will transition to PO Augmentin + Keflex 02/25-03/03 on DC --Midline placed but will be removed after abx complete --No PICC or midline in future --[facility] order placed 02/22, but will plan to DC this --Repeat PD fluid studies 02/17, NGTD --Repeat Bcx pending, NGTD --IR consult for port removal 02/20 --Trend labs, VS; f/u Bcx, Ucx --UA + WBC, Leukocytes, but neg bacteria, neg nitrites; Ucx neg Assessment & Plan (02/22/2025 2:59 PM CDT): -Dx at OSH. Possible colonization of PD cath. -[facility] Bcx 02/14 E. coli (resistant to Bactrim); 02/16 MSSA (andujar-sensitive) as of 02/21 -[facility] Peritoneal fluid cx 02/14: 800 neuts, NGTD (anaerobic or aerobic) as of 02/21 -[facility] Peritoneal fluid cx: 2.3k neuts no microrganisms, no yeast or hyphae -Prior to transfer was on IV Vanc/Cefe -Elevated CRP 25, Procal 11 -Neg lactic acid --Transplant Nephro consult --Pharmacy consult --ID consult, TTE w/o veggies --Ceftazadime dwell 02/17, hold further given bacteremia --Vanc/Cefe 02/19 - 02/20 --Transitioned to Ancef 02/21 - 03/03 --If OPAT, will need powerline per nephro --Consider 7x days IV abx, then transition to PO x7d --[facility] order placed 02/22, unlikely available training until 02/24 --Repeat PD fluid studies 02/17, NGTD --Repeat Bcx pending, NGTD --IR consult for port removal 02/20 --Trend labs, VS; f/u Bcx, Ucx --UA + WBC, Leukocytes, but neg bacteria, neg nitrites; Ucx neg Assessment & Plan (02/21/2025 1:16 PM CDT): -Dx at OSH. Possible colonization of PD cath. -[facility]H Bcx 02/14 E. coli (resistant to Bactrim); 02/16 MSSA (andujar-sensitive) as of 02/21 -[facility] Peritoneal fluid cx 02/14: 800 neuts, NGTD (anaerobic or aerobic) as of 02/21 -[facility] Peritoneal fluid cx: 2.3k neuts no microrganisms, no yeast or hyphae -Prior to transfer was on IV Vanc/Cefe -Elevated CRP 25, Procal 11 -Neg lactic acid --Transplant Nephro consult --Pharmacy consult --ID consult, pending TTE --Ceftazadime dwell 02/17, hold further given bacteremia --Vanc/Cefe 02/19 - 02/20 --Transitioned to Ancef 02/21 - ? --Repeat PD fluid studies 02/17, NGTD --Repeat Bcx pending, NGTD --IR consult for port removal 02/20 --Trend labs, VS; f/u Bcx, Ucx --UA + WBC, Leukocytes, but neg bacteria, neg nitrites; Ucx neg Assessment & Plan (02/20/2025 2:40 PM CDT): -Dx at OSH. Possible colonization of PD cath. -[facility]H Bcx E. coli (andujar-sensitive); Staph -[facility] Peritoneal fluid cx: 800 neuts, cultures pending -[facility] Peritoneal fluid cx: 2.3k neuts no microrganisms, no yeast or hyphae -Prior to transfer was on IV Vanc/Cefe -Elevated CRP 25, Procal 11 -Neg lactic acid --Transplant Nephro consult --Pharmacy consult --ID consult, pending TTE --Ceftazadime dwell 02/17, hold further given bacteremia --Restart Vanc/Cefe 02/19 - ? --Repeat PD fluid studies 02/17, pending final --Repeat Bcx pending, NGTD --IR consult for port removal 02/20 --Trend labs, VS; f/u Bcx, Ucx --UA + WBC, Leukocytes, but neg bacteria, neg nitrites; Ucx neg Assessment & Plan (02/19/2025 3:20 PM CDT): -Dx at OSH. Possible colonization of PD cath. -[facility] Bcx E. coli (andujar-sensitive); Staph -[facility] Peritoneal fluid cx: 800 neuts, cultures pending -[facility] Peritoneal fluid cx: 2.3k neuts no microrganisms, no yeast or hyphae -Prior to transfer was on IV Vanc/Cefe -Elevated CRP 25, Procal 11 -Neg lactic acid --Transplant Nephro consult --Pharmacy consult --ID consult, pending TTE --Ceftazadime dwell 02/17, hold further given bacteremia --Restart Vanc/Cefe 02/19 - ? --Repeat PD fluid studies 02/17, pending final --Repeat Bcx pending, NGTD --IR consult for port removal --Trend labs, VS; f/u Bcx, Ucx --UA + WBC, Leukocytes, but neg bacteria, neg nitrites; Ucx neg Assessment & Plan (02/18/2025 2:21 PM CDT): -Dx at OSH. Possible colonization of PD cath. -[facility] Peritoneal fluid cx: 800 neuts + GNB -[facility] Peritoneal fluid cx: 2.3k neuts no microrganisms, no yeast or hyphae -Prior to transfer was on IV Vanc/Cefe -Elevated CRP 25, Procal 11 -Neg lactic acid --Transplant Nephro consult --Pharmacy consult --ID consult --Ceftazadime dwell 02/17 --Restart Vanc/Cefe 02/18 --Repeat PD fluid studies 02/17, pending final --Trend labs, VS; f/u Bcx, Ucx --UA + WBC, Leukocytes, but neg bacteria, neg nitrites Assessment & Plan (02/17/2025 5:00 PM CDT): -Dx at OSH. Peritoneal fluid cx + GNB -Prior to transfer was on IV Vanc/Cefe -Elevated CRP 25, Procal 11 -Neg lactic acid --Transplant Nephro consult --Pharmacy consult --Ceftazadime dwell 02/17 --Repeat PD fluid studies 02/17 --F/u Vanco random level --Consider ID consult 02/18 --Trend labs, VS; f/u Bcx, Ucx --UA + WBC, Leukocytes, but neg bacteria, neg nitrites Low magnesium level 02/17/2025 Assessment & Plan (02/24/2025 5:01 PM CDT): -Txp 2018, Rejected 2021, HD via [facility] through 09/2023 but had frequent obstructions, switched to PD. Possible prior peritonitis 09/2024 but patient unclear for sure. -Neg w/u: Lactic acid --Transplant nephro consult, transplant kidney U/S unremarkable --Cont. PD --Automation Mechanic Calcitriol, Cinacalcet --Phos binder started 02/18, incr to 1600 TID 02/21 --Trend labs, replete lytes prn --Patient request liberalization of diet 02/20. Assessment & Plan (02/24/2025 4:07 PM CDT): -Txp 2018, Rejected 2021, HD via [facility]F through 09/2023 but had frequent obstructions, switched to PD. Possible prior peritonitis 09/2024 but patient unclear for sure. -Neg w/u: Lactic acid --Transplant nephro consult, transplant kidney U/S unremarkable --Cont. PD --Automation Mechanic Calcitriol, Cinacalcet --Phos binder started 02/18, incr to 1600 TID 02/21 --Trend labs, replete lytes prn --Patient request liberalization of diet 02/20. Assessment & Plan (02/23/2025 2:17 PM CDT): -Txp 2018, Rejected 2021, HD via [facility] through 09/2023 but had frequent obstructions, switched to PD. Possible prior peritonitis 09/2024 but patient unclear for sure. -Neg w/u: Lactic acid --Transplant nephro consult, transplant kidney U/S unremarkable --Restart PD 02/17 --Automation Mechanic Calcitriol, Cinacalcet --Phos binder started 02/18, incr to 1600 TID 02/21 --Trend labs, replete lytes prn --Patient request liberalization of diet 02/20. Assessment & Plan (02/22/2025 2:59 PM CDT): -Txp 2018, Rejected 2021, HD via [facility]F through 09/2023 but had frequent obstructions, switched to PD. Possible prior peritonitis 09/2024 but patient unclear for sure. -Neg w/u: Lactic acid --Transplant nephro consult, transplant kidney U/S unremarkable --Restart PD 02/17 --Automation Mechanic Calcitriol, Cinacalcet --Phos binder started 02/18, incr to 1600 TID 02/21 --Trend labs, replete lytes prn --Patient request liberalization of diet 02/20. --If needs OPAT, will need powerline, not midline Assessment & Plan (02/21/2025 1:16 PM CDT): -Txp 2018, Rejected 2021, HD via RUE AVF through 09/2023 but had frequent obstructions, switched to PD. Possible prior peritonitis 09/2024 but patient unclear for sure. -Neg w/u: Lactic acid --Transplant nephro consult, transplant kidney U/S unremarkable --Restart PD 02/17 --Automation Mechanic Calcitriol, Cinacalcet --Phos binder started 02/18, consider increase as level remains >7 --Trend labs, replete lytes prn --Patient request liberalization of diet 02/20. Assessment & Plan (02/20/2025 2:40 PM CDT): -Txp 2018, Rejected 2021, HD via RUE AVF through 09/2023 but had frequent obstructions, switched to PD. Possible prior peritonitis 09/2024 but patient unclear for sure. -Neg w/u: Lactic acid --Transplant nephro consult, transplant kidney U/S unremarkable --Restart PD 02/17 --Automation Mechanic Calcitriol, Cinacalcet --Phos binder started 02/18 --Trend labs, replete lytes prn --Patient request liberalization. Assessment & Plan (02/19/2025 3:20 PM CDT): -Txp 2018, Rejected 2021, HD via RUE AVF through 09/2023 but had frequent obstructions, switched to PD. Possible prior peritonitis 09/2024 but patient unclear for sure. -Neg w/u: Lactic acid --Transplant nephro consult, transplant kidney U/S unremarkable --Restart PD 02/17 --Automation Mechanic Calcitriol, Cinacalcet --Phos binder started 02/18 --Trend labs, replete lytes prn --Phos restricted diet. Otherwise patient request liberalization. Assessment & Plan (02/18/2025 2:21 PM CDT): -Txp 2018, Rejected 2021, HD via RUE AVF through 09/2023 but had frequent obstructions, switched to PD. Possible prior peritonitis 09/2024 but patient unclear for sure. -Neg w/u: Lactic acid --Transplant nephro consult, check transplant kidney U/S --Restart PD 02/17 --Automation Mechanic Calcitriol, Cinacalcet --Consider phos binder --Trend labs, replete lytes prn --Phos restricted diet. Otherwise patient request liberalization. Assessment & Plan (02/17/2025 5:00 PM CDT): -Txp 2018, Rejected 2021, HD via RUE AVF through 09/2023 but had frequent obstructions, switched to PD. Possible prior peritonitis 09/2024 but patient unclear for sure. -Neg w/u: Lactic acid --Transplant nephro consult --Restart PD 02/17 --Automation Mechanic Calcitriol, Cinacalcet --Trend labs Gastroesophageal reflux disease without esophagi tis 02/17/2025 Assessment & Plan (02/24/2025 5:01 PM CDT): --Cont. PPI Assessment & Plan (02/24/2025 4:07 PM CDT): --Cont. PPI Assessment & Plan (02/23/2025 2:17 PM CDT): --Cont. PPI Assessment & Plan (02/22/2025 2:59 PM CDT): --Cont. PPI Assessment & Plan (02/21/2025 1:07 PM CDT): --Cont. PPI Assessment & Plan (02/20/2025 2:40 PM CDT): --Cont. PPI Assessment & Plan (02/19/2025 2:36 PM CDT): --Cont. PPI Assessment & Plan (02/18/2025 2:21 PM CDT): --Cont. PPI Assessment & Plan (02/17/2025 5:00 PM CDT): --Cont. PPI Psychophysiological insomnia 02/17/2025 Assessment & Plan (02/24/2025 5:01 PM CDT): --Cont. sales route driver helper Trazodone --02/22: DC Temazepam as no longer taking, add Flexeril for nocturnal cramps Assessment & Plan (02/24/2025 4:07 PM CDT): --Cont. sales route driver helper Trazodone --02/22: DC Temazepam as no longer taking, add Flexeril for nocturnal cramps Assessment & Plan (02/23/2025 2:17 PM CDT): --Cont. sales route driver helper Trazodone --02/22: DC Temazepam as no longer taking, add Flexeril for nocturnal cramps Assessment & Plan (02/22/2025 2:59 PM CDT): --Cont. sales route driver helper Trazodone --02/22: DC Temazepam as no longer taking, add Flexeril for nocturnal cramps Assessment & Plan (02/21/2025 1:07 PM CDT): --Cont. sales route driver helper Trazodone, Temazepam Assessment & Plan (02/20/2025 2:40 PM CDT): --Cont. sales route driver helper Trazodone, Temazepam Assessment & Plan (02/19/2025 2:36 PM CDT): --Cont. sales route driver helper Trazodone, Temazepam Assessment & Plan (02/18/2025 2:21 PM CDT): --Cont. sales route driver helper Trazodone, Temazepam Assessment & Plan (02/17/2025 5:00 PM CDT): --Cont. sales route driver helper Trazodone, Temazepam Peritonitis 02/16/2025 Assessment & Plan (02/24/2025 5:01 PM CDT): -Dx at OSH. This is culture-negative peritonitis based on cell count alone -[facility] Bcx 02/14 E. coli (resistant to Bactrim); 02/16 MSSA (andujar-sensitive) as of 02/21 -[facility]H Peritoneal fluid cx 02/14: 800 neuts, NGTD (anaerobic or aerobic) as of 02/21 -[facility] Peritoneal fluid cx 02/17: 2.3k neuts no microrganisms, no yeast or hyphae -Repeat PD fluid screen 02/20 vastly improved w/ total cell count of only 8 -Prior to transfer was on IV Vanc/Cefe -Elevated CRP 25, Procal 11 -Neg lactic acid --Transplant Nephro consult --Pharmacy consult --ID consult, TTE w/o veggies --Ceftazadime dwell 02/17, hold further given bacteremia --Vanc/Cefe 02/19 - 02/20 --Transitioned to Ancef 02/21 - 02/24 (total 7x days IV abx) --Will transition to PO Augmentin + Keflex 02/25-03/03 on DC of bacteremia --Will also need 7 more days of IP Cefazolin qhs (EOT 03/03) for peritonitis --CM and HD coordinator to help fax these instructions to [facility] --No PICC or midline in future --Repeat PD fluid studies 02/17, NGTD --Repeat Bcx pending, NGTD --IR consult for port removal 02/20 --Trend labs, VS; f/u Bcx, Ucx --UA + WBC, Leukocytes, but neg bacteria, neg nitrites; Ucx neg Assessment & Plan (02/24/2025 4:07 PM CDT): -Dx at OSH. This is culture-negative peritonitis based on cell count alone -OSH Bcx 02/14 E. coli (resistant to Bactrim); 02/16 MSSA (andujar-sensitive) as of 02/21 -[facility]H Peritoneal fluid cx 02/14: 800 neuts, NGTD (anaerobic or aerobic) as of 02/21 -[facility] Peritoneal fluid cx: 2.3k neuts no microrganisms, no yeast or hyphae -Prior to transfer was on IV Vanc/Cefe -Elevated CRP 25, Procal 11 -Neg lactic acid --Transplant Nephro consult --Pharmacy consult --ID consult, TTE w/o veggies --Ceftazadime dwell 02/17, hold further given bacteremia --Vanc/Cefe 02/19 - 02/20 --Transitioned to Ancef 02/21 - 02/24 (total 7x days IV abx) --Will transition to PO Augmentin + Keflex 02/25-03/03 on DC of bacteremia --Will also need 7 more days of IP Cefazolin qhs (EOT 03/03) for peritonitis --CM and HD coordinator to help fax these instructions to [facility] --No PICC or midline in future --Repeat PD fluid studies 02/17, NGTD --Repeat Bcx pending, NGTD --IR consult for port removal 02/20 --Trend labs, VS; f/u Bcx, Ucx --UA + WBC, Leukocytes, but neg bacteria, neg nitrites; Ucx neg Assessment & Plan (02/23/2025 2:17 PM CDT): -Dx at OSH. Possible colonization of PD cath. -OSH Bcx 02/14 E. coli (resistant to Bactrim); 02/16 MSSA (andujar-sensitive) as of 02/21 -OSH Peritoneal fluid cx 02/14: 800 neuts, NGTD (anaerobic or aerobic) as of 02/21 -[facility] Peritoneal fluid cx: 2.3k neuts no microrganisms, no yeast or hyphae -Prior to transfer was on IV Vanc/Cefe -Elevated CRP 25, Procal 11 -Neg lactic acid --Transplant Nephro consult --Pharmacy consult --ID consult, TTE w/o veggies --Ceftazadime dwell 02/17, hold further given bacteremia --Vanc/Cefe 02/19 - 02/20 --Transitioned to Ancef 02/21 - 02/24 (total 7x days IV abx) --Will transition to PO Augmentin + Keflex 02/25-03/03 on DC --Midline placed but will be removed after abx complete --No PICC or midline in future --C order placed 02/22, but will plan to DC this --Repeat PD fluid studies 02/17, NGTD --Repeat Bcx pending, NGTD --IR consult for port removal 02/20 --Trend labs, VS; f/u Bcx, Ucx --UA + WBC, Leukocytes, but neg bacteria, neg nitrites; Ucx neg Assessment & Plan (02/22/2025 2:59 PM CDT): -Dx at OSH. Possible colonization of PD cath. -OSH Bcx 02/14 E. coli (resistant to Bactrim); 02/16 MSSA (andujar-sensitive) as of 02/21 -[facility]H Peritoneal fluid cx 02/14: 800 neuts, NGTD (anaerobic or aerobic) as of 02/21 -[facility] Peritoneal fluid cx: 2.3k neuts no microrganisms, no yeast or hyphae -Prior to transfer was on IV Vanc/Cefe -Elevated CRP 25, Procal 11 -Neg lactic acid --Transplant Nephro consult --Pharmacy consult --ID consult, TTE w/o veggies --Ceftazadime dwell 02/17, hold further given bacteremia --Vanc/Cefe 02/19 - 02/20 --Transitioned to Ancef 02/21 - 03/03 --If OPAT, will need powerline per nephro --Consider 7x days IV abx, then transition to PO x7d --[facility] order placed 02/22, unlikely available training until 02/24 --Repeat PD fluid studies 02/17, NGTD --Repeat Bcx pending, NGTD --IR consult for port removal 02/20 --Trend labs, VS; f/u Bcx, Ucx --UA + WBC, Leukocytes, but neg bacteria, neg nitrites; Ucx neg Assessment & Plan (02/21/2025 1:16 PM CDT): -Dx at OSH. Possible colonization of PD cath. -OSH Bcx 02/14 E. coli (resistant to Bactrim); 02/16 MSSA (andujar-sensitive) as of 02/21 -[facility]H Peritoneal fluid cx 02/14: 800 neuts, NGTD (anaerobic or aerobic) as of 02/21 -[facility] Peritoneal fluid cx: 2.3k neuts no microrganisms, no yeast or hyphae -Prior to transfer was on IV Vanc/Cefe -Elevated CRP 25, Procal 11 -Neg lactic acid --Transplant Nephro consult --Pharmacy consult --ID consult, pending TTE --Ceftazadime dwell 02/17, hold further given bacteremia --Vanc/Cefe 02/19 - 02/20 --Transitioned to Ancef 02/21 - ? --Repeat PD fluid studies 02/17, NGTD --Repeat Bcx pending, NGTD --IR consult for port removal 02/20 --Trend labs, VS; f/u Bcx, Ucx --UA + WBC, Leukocytes, but neg bacteria, neg nitrites; Ucx neg Assessment & Plan (02/20/2025 2:40 PM CDT): -Dx at OSH. Possible colonization of PD cath. -OSH Bcx E. coli (andujar-sensitive); Staph -OSH Peritoneal fluid cx: 800 neuts, cultures pending -[facility] Peritoneal fluid cx: 2.3k neuts no microrganisms, no yeast or hyphae -Prior to transfer was on IV Vanc/Cefe -Elevated CRP 25, Procal 11 -Neg lactic acid --Transplant Nephro consult --Pharmacy consult --ID consult, pending TTE --Ceftazadime dwell 02/17, hold further given bacteremia --Restart Vanc/Cefe 02/19 - ? --Repeat PD fluid studies 02/17, pending final --Repeat Bcx pending, NGTD --IR consult for port removal 02/20 --Trend labs, VS; f/u Bcx, Ucx --UA + WBC, Leukocytes, but neg bacteria, neg nitrites; Ucx neg Assessment & Plan (02/19/2025 3:20 PM CDT): -Dx at OSH. Possible colonization of PD cath. -OSH Bcx E. coli (andujar-sensitive); Staph -OSH Peritoneal fluid cx: 800 neuts, cultures pending -[facility] Peritoneal fluid cx: 2.3k neuts no microrganisms, no yeast or hyphae -Prior to transfer was on IV Vanc/Cefe -Elevated CRP 25, Procal 11 -Neg lactic acid --Transplant Nephro consult --Pharmacy consult --ID consult, pending TTE --Ceftazadime dwell 02/17, hold further given bacteremia --Restart Vanc/Cefe 02/19 - ? --Repeat PD fluid studies 02/17, pending final --Repeat Bcx pending, NGTD --IR consult for port removal --Trend labs, VS; f/u Bcx, Ucx --UA + WBC, Leukocytes, but neg bacteria, neg nitrites; Ucx neg Assessment & Plan (02/18/2025 2:21 PM CDT): -Dx at OSH. Possible colonization of PD cath. -OSH Peritoneal fluid cx: 800 neuts + GNB -[facility] Peritoneal fluid cx: 2.3k neuts no microrganisms, no yeast or hyphae -Prior to transfer was on IV Vanc/Cefe -Elevated CRP 25, Procal 11 -Neg lactic acid --Transplant Nephro consult --Pharmacy consult --ID consult --Ceftazadime dwell 02/17 --Restart Vanc/Cefe 02/18 --Repeat PD fluid studies 02/17, pending final --Trend labs, VS; f/u Bcx, Ucx --UA + WBC, Leukocytes, but neg bacteria, neg nitrites Assessment & Plan (02/17/2025 5:00 PM CDT): -Dx at OSH. Peritoneal fluid cx + GNB -Prior to transfer was on IV Vanc/Cefe -Elevated CRP 25, Procal 11 -Neg lactic acid --Transplant Nephro consult --Pharmacy consult --Ceftazadime dwell 02/17 --Repeat PD fluid studies 02/17 --F/u Vanco random level --Consider ID consult 02/18 --Trend labs, VS; f/u Bcx, Ucx --UA + WBC, Leukocytes, but neg bacteria, neg nitrites History of Mohs micrographic surgery for skin ca ncer 04/05/2024 Benign colonic polyp 04/05/2024 History of malignant neoplasm of endocrine gland 04/05/2024 End-stage renal disease on peritoneal dialysis 1 10/24/2022 Assessment & Plan (02/24/2025 5:01 PM CDT): -Txp 2018, Rejected 2021, HD via RUE AVF through 09/2023 but had frequent obstructions, switched to PD. Possible prior peritonitis 09/2024 but patient unclear for sure. -Neg w/u: Lactic acid --Transplant nephro consult, transplant kidney U/S unremarkable --Cont. PD --Automation Mechanic Calcitriol, Cinacalcet --Phos binder started 02/18, incr to 1600 TID 02/21 --Trend labs, replete lytes prn --Patient request liberalization of diet 02/20. Assessment & Plan (02/24/2025 4:07 PM CDT): -Txp 2018, Rejected 2021, HD via RUE AVF through 09/2023 but had frequent obstructions, switched to PD. Possible prior peritonitis 09/2024 but patient unclear for sure. -Neg w/u: Lactic acid --Transplant nephro consult, transplant kidney U/S unremarkable --Cont. PD --Automation Mechanic Calcitriol, Cinacalcet --Phos binder started 02/18, incr to 1600 TID 02/21 --Trend labs, replete lytes prn --Patient request liberalization of diet 02/20. Assessment & Plan (02/23/2025 2:17 PM CDT): -Txp 2018, Rejected 2021, HD via RUE AVF through 09/2023 but had frequent obstructions, switched to PD. Possible prior peritonitis 09/2024 but patient unclear for sure. -Neg w/u: Lactic acid --Transplant nephro consult, transplant kidney U/S unremarkable --Restart PD 02/17 --Automation Mechanic Calcitriol, Cinacalcet --Phos binder started 02/18, incr to 1600 TID 02/21 --Trend labs, replete lytes prn --Patient request liberalization of diet 02/20. Assessment & Plan (02/22/2025 2:59 PM CDT): -Txp 2018, Rejected 2021, HD via RUE AVF through 09/2023 but had frequent obstructions, switched to PD. Possible prior peritonitis 09/2024 but patient unclear for sure. -Neg w/u: Lactic acid --Transplant nephro consult, transplant kidney U/S unremarkable --Restart PD 02/17 --Automation Mechanic Calcitriol, Cinacalcet --Phos binder started 02/18, incr to 1600 TID 02/21 --Trend labs, replete lytes prn --Patient request liberalization of diet 02/20. --If needs OPAT, will need powerline, not midline Assessment & Plan (02/21/2025 1:16 PM CDT): -Txp 2018, Rejected 2021, HD via RUE AVF through 09/2023 but had frequent obstructions, switched to PD. Possible prior peritonitis 09/2024 but patient unclear for sure. -Neg w/u: Lactic acid --Transplant nephro consult, transplant kidney U/S unremarkable --Restart PD 02/17 --Automation Mechanic Calcitriol, Cinacalcet --Phos binder started 02/18, consider increase as level remains >7 --Trend labs, replete lytes prn --Patient request liberalization of diet 02/20. Assessment & Plan (02/20/2025 2:40 PM CDT): -Txp 2018, Rejected 2021, HD via RUE AVF through 09/2023 but had frequent obstructions, switched to PD. Possible prior peritonitis 09/2024 but patient unclear for sure. -Neg w/u: Lactic acid --Transplant nephro consult, transplant kidney U/S unremarkable --Restart PD 02/17 --Automation Mechanic Calcitriol, Cinacalcet --Phos binder started 02/18 --Trend labs, replete lytes prn --Patient request liberalization. Assessment & Plan (02/19/2025 3:20 PM CDT): -Txp 2018, Rejected 2021, HD via RUE AVF through 09/2023 but had frequent obstructions, switched to PD. Possible prior peritonitis 09/2024 but patient unclear for sure. -Neg w/u: Lactic acid --Transplant nephro consult, transplant kidney U/S unremarkable --Restart PD 02/17 --Automation Mechanic Calcitriol, Cinacalcet --Phos binder started 02/18 --Trend labs, replete lytes prn --Phos restricted diet. Otherwise patient request liberalization. Assessment & Plan (02/18/2025 2:21 PM CDT): -Txp 2018, Rejected 2021, HD via RUE AVF through 09/2023 but had frequent obstructions, switched to PD. Possible prior peritonitis 09/2024 but patient unclear for sure. -Neg w/u: Lactic acid --Transplant nephro consult, check transplant kidney U/S --Restart PD 02/17 --Automation Mechanic Calcitriol, Cinacalcet --Consider phos binder --Trend labs, replete lytes prn --Phos restricted diet. Otherwise patient request liberalization. Assessment & Plan (02/17/2025 5:00 PM CDT): -Txp 2018, Rejected 2021, HD via RUE AVF through 09/2023 but had frequent obstructions, switched to PD. Possible prior peritonitis 09/2024 but patient unclear for sure. -Neg w/u: Lactic acid --Transplant nephro consult --Restart PD 02/17 --Automation Mechanic Calcitriol, Cinacalcet --Trend labs Sinus tachycardia 01/17/2023 Assessment & Plan (01/17/2023 [...] Pre-transplant evaluation for kidney transplant 10/24/2022 Overview (04/02/2025): Images from the original note were not included. Brandy Smith 1960 Referring Contract Clerk: Quintin Hope Listing Date: 05/10/2023 Dialysis Info: Type: HD M,W,F Time: 06/16/2022 Blood Type: O POS Body mass index is 31.76 kg/m . ALERTS Listed for Hep C kidneys Induction Method: Immunosuppression Induction Method/Plan: Antithymocyte globulin (rabbit) (Thymoglobulin) 5 mg/kg Ammunition Specialist: Dr. 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 Prior to that was Urosepsis? 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 VASCULAR PROCEDURE/SURGERY Right 10/13/2022 Right; Right brachial BRACIAL arterial venous fistula creation VASCULAR PROCEDURE/SURGERY Right 12/07/2022 Right; RIGHT ARTERIOVENOUS GRAFT PLACEMENT Transplant Surgery Clinic Appt w/: Dr. Jo 01/27/2025 Assessment/Plan: This is a 65 year old female with ESRD and failed prior LD transplant. Remains a good candidate for renal transplant. I discussed the risks and benefits of kidney transplant including the need for lifelong immunotherapy, the need for the patient to be compliant with the immunotherapy, the need for a lifelong relationship with a health care provider and the need to have labs checked frequently. We also talked about the risks of surgery including but not limited to the following: Anesthetic concerns including heart attack, stroke, or Need for endotracheal intubation and possibility of prolonged intubation Intraoperative and postoperative bleeding Postoperative hematoma or wound infection requiring return to OR Renal artery and vein thrombosis requiring return to OR and possible explantation Ureteric stricture or leak requiring interventional procedures and/or reoperation Delayed graft function Risk of primary nonfunction Increased risk of infection and malignancy remotely We discussed the possibility of receiving an HCV+ organ. We discussed the antiviral treatment and need for compliance to achieve SVR; the cure rate of 98% with DAA and the possibility of repeating a course if not cured; and the possibility of complications prior to and while undergoing treatment. These include headaches, nausea, cryoglobulinemia and RASHEED, and encephalitis as well as possible hepatitis-induced injury to the graft. At this time the patient is consented. We discussed the possibility of receiving an increased risk organ. We discussed the risk factors that place kidneys in this category and the relative risk of transmission from an increased risk donor. We compared that risk with the risk of remaining on dialysis and the risk of hepatitis transmission on dialysis. At this time the patient is amenable. We discussed the possibility of receiving an organ with a KDPI of >85%. We discussed the lower mean survival for these organs and the increased rates of delayed graft function. At this time the patient is NOT amenable. No potential LD's. Issues: -inactive following NSTEMI broken heart syndrome. Repeat Echo shows significant improvement in EF. She saw Mechanical Technical Service Specialist 10/25/24. - PTH needs to be < 700 for her to be activated on the list. Dr Hope, thanks for the referral. Patient with chronic illness - ESRD - that is a sustained threat to life. I have reviewed and interpreted her labs (cbc, cmp, hepatitis serologies, mmr serologies, pth, quantiferon) and her imaging (CT a/p) independently to arrive at the conclusions outlined in the note. I have additionally discussed her case with transplant nephrology. She is presenting for discussion of major elective surgery (kidney transplant) with identified risk factors of diabetes, obesity, hyperparathyroidism and CAD. Fred Jo MD compensation/benefits specialist Transplant & HPB Surgery Transplant Surgery Clinic Appt w/: Dr. Hollins Date: 01/15/2024 Assessment & Plan: 63 y/o F pt w/ complicated hx including Wilms tumor requiring R nephrectomy in , Renal txp in 2018 c/b graft failure, Overall acceptable candidate for transplant Plan Discussed different types donors including LDs,HCV + Blood Ryan Hollins MD aircraft sheet metal mechanic Transplant Surgery Clinic Appt w/: Dr. Benjamin Date: 10/25/2022 Nephrology Clinic Appt w/: Dr. Edmond Date: 10/25/2022 HPI: Patient is a 62 year old white female with history of ESRD 2/2 unknown etiology; now s/p living unrelated donor transplant from her 10/13/2018 which was done at [facility] ( ). This was HLA 2 A, [...] dosing ( according to Dr. Lorenzo, her technology professional). Eventually MPA was reduced to 360 mg [...] of her kidney disease is: Rejection. Her [place] kidney disease is still undetermined. I discussed [...] followup in PRN. Rina Tracy PA-C Physician Social Security Specialist in Internal Medicine Bsasam Moran MD Professor of Internal Medicine No orders of the defined types were placed in this encounter. Nephrology: 04/18/[address] Edmond HPI: Patient is a 62 year old white female with history of ESRD 2/2 unknown etiology; now s/p living unrelated donor transplant from her 10/13/2018 which was done at [facility] ( ). This was HLA 2 A, [...] dosing ( according to Dr. Lorenzo, her technology professional). Eventually MPA was reduced to 360 mg daily due to neutropenia, prednisone was stopped in 2018 by [facility]. [...] to volume overload & HTN. Discontinue Belatacept. 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 0 Result Notes Details Reading Physician Reading Date Result Priority Dwain Alcala MD [phone] 10/21/2021 Richy John DO [phone] 10/21/2021 Narrative & Impression EXAMINATION: CT OF [...] internal capsule. Dictated by Richy John D.O. (Ship Fitter) I, Dr. DWAIN ALCALA have personally reviewed [...] primary physician for medical needs. Carotids: 12/22/2022 Dermatology: 03/17/2023 pt follows q 3-[address] Foreman [facility] path reports: Pathology: Cardiology: 10/25/2024 HPI [...] demonstrated. Electronically Signed By: Vishal Pittman MD, [facility] 2024-12-29 4:16:59 PM CDT Holter monitor: 01/19/2023 [...] Rate recorded was 192 bpm, Day 3 04:25:45 pm, the Minimum Heart Rate recorded was 69 bpm, Day 2 :44:29 am and the Average Heart Rate [...] No sustained arrhythmias. Pertinent Previous Committee Presentations: [facility] 03/13/2025 Committee Review Decision: Make Active Prior Transplants: 10/13/2018 EPTS: 90 at 03/13/2025 11:30 AM Calculated from: Age: 65 years Has Diabetes: Yes Prior solid organ transplant: No Dialysis: 2 years 8 months Committee Discussion Details: Pt presented for reactivation on the kidney txp wait list. Pt was inactive for Takotsubo (broken heart syndrome) cardiomyopathy. Cardiology f/u completed - EF recovered, LHC normal, stress test negative. PTH is now <700. Peritonitis infection last month cleared. Reviewed past medical and surgical history. Reviewed last txp clinic notes. Reviewed December txp eval test results. PTH now 641. Reviewed BPs. Echo 12/24/24 - EF 71%, DSE 12/24/24 negative, LHC 09/27/24 no CAD. Reviewed screenings (up to date). No concerns from SW, RD or FC. Per team, OK to make active on the wait list. [facility] 10/10/2024 Committee Review Decision: Make Inactive Prior Transplants: N/A EPTS: 88 at 10/10/2024 12:47 PM Calculated from: Age: 64 years Has Diabetes: Yes Prior solid organ transplant: No Dialysis: 2 years 3 months Committee Discussion Details: Pt presented to review recent hospitalization at [place]. Pt treated for Sepsis infection. Reviewed positive blood cultures for Staph aureus. Reviewed Echo and LHC results. Echo shows EF 30-35%, Takotsubo cardiomyopathy (Broken Heart syndrome). LHC report shows no CAD yet NSTEMI (EF 50%). Per team, make inactive for 3 months. Pt will need Cardiac clearance then repeat Echo and represent. [facility] 04/11/2024 Committee Review Decision: Remain Active Prior Transplants: N/A EPTS: 84 at 04/11/2024 1:23 PM Calculated from: Age: 64 years Has Diabetes: Yes Prior solid organ transplant: No Dialysis: 1 year 9 months Committee Discussion Details: [facility] at [facility] for Hep C kidney listing. [...] Method/Plan: Antithymocyte globulin (rabbit) (Thymoglobulin) 5 mg/kg [facility] note: 04/13/2023 Induction Method: Immunosuppression Induction Method/Plan: Antithymocyte globulin (rabbit) (Thymoglobulin) 3 mg/kg *pt still on belatacept, will get repeat DSAs once off, may need to change induction plan* Committee Discussion Details: Pt's case presented at [facility] today for approval to list. [...] Committee Discussion Details: Pt's case presented at [facility] to discuss her candidacy for [...] CA19-9: 50 Phos: 10.6 Vit D: 24.1 PTH at [facility] 03/06/25: 641 Latest Reference Range & Units 05/04/23 14:42 12/21/23 12:55 12/24/24 08:24 CA 19-9 <=35 U/mL 31 40 (H) 50 (H) Reviewed Hepatitis vaccination: Hepatitis A positive due [...] will be reported in an addendum. at 0990 Microscopic Description and Comment 1 H&E, 1 [...] segmental glomerulosclerosis (FSGS). Previous renal allograft biopsy ([id number]) showed light microscopic findings consistent with acute [...] glomerular basement membrane label. Fibrinogen: Nonspecific label. [place]: 3+ cast label. Lambda: 3+ cast label. Addendum 1 Electron Microscopy: [id number]. Rop-wnnxztgntl-hxpsj, clatmcipk-rnfw-eghfehj sections of five blocks are reviewed; one [...] will be reported in an addendum. at 153 Microscopic Description and Comment 1 H&E, 1 [...] glomerular basement membrane label. Fibrinogen: Nonspecific label. [place]: 3+ cast label. Lambda: 3+ cast label. C4d: Negative paratubular capillary label. Addendum 1 Electron Microscopy: [id number]. Wmf-upgktdxtki-iqxkf, zbbrhdvjf-cewh-kvafxha sections of two blocks are reviewed; one is selected for ultrastructural analysis. Transmission electron microscopic analysis of a single glomerulus shows moderate effacement of visceral epithelial foot processes, reduced endothelial fenestrations, a moderate increase in mesangial matrix, and segmental mesangial interposition. 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 Kidney allograft bx: Completed at [facility] (14 days post txp) EK03/25/2023 Component Ref Range & Units 7 mo ago Heart Rate bpm 77 NM Interval ms 187 P [place] deg 30 QRS Interval ms 89 QT Interval ms 418 QTcB (Best for HR 60-90 bpm) ms 475 QTCf ms 454 QRS [place] deg 19 T Wave [place] deg 27 EKG Impression - NORMAL ECG [...] in size. Limited Echo for EF: 11/21/2024 ([facility]) CONCLUSIONS: Normal left ventricular systolic function [...] dobutamine induced wall motion abnormalities. C: 09/27/2024 [facility]: 07/12/2018 CXR: 12/24/2024 IMPRESSION: Left chest port [...] nondilated. Normal spleen and adrenal glands. The [place] right kidney is absent. There is cystic degeneration of the [place] left kidney with innumerable simple and hemorrhagic [...] seen on MRI Angio completed at [facility] in 04/2022 COMPARISON: MRI angiography of [...] hemorrhagic cysts are present throughout the left [place] kidney. A single left renal artery is present and normal in caliber. There is no [place] right kidney Transplant kidney in the left [...] Dates: None Previous Recommendations: None Presenter: Sourav Sap Portal Developer: None Interventional Radiologist: None Surgeon: Sourav Transplant [...] intensity cysts are present throughout the left [place] kidney. The right kidney is not seen [...] Tumor Board follow up: 04/06/2023 Presenter: Sourav Sap Portal Developer: Missy Interventional Radiologist: None Surgeon: Sourav Transplant Status: [...] intensity cysts are present throughout the left [place] kidney suggestive of hemorrhagic/proteinaceous content. Some cysts [...] Next colonoscopy was done on 01/20/25 at [place] but prep not sufficient. They are rescheduling her in 6 mo with 2 day prep. Mammogram: 06/19/2024 Pap: GIGI with SBO 11/21/2000 - records scanned in under media Pathology: Panorex/Dental: SW: 12/31/2024 Clinical Social Work Impression: It is the impression of this licensed master social worker that Brandy Smith has several positive factors for Kidney transplant candidacy from a psychosocial perspective. Patient appears to have appropriate knowledge of illness. Patient has sufficient insurance coverage and stable financial situation for post transplant needs. No concerns regarding substance abuse, legal issues, or mental health needs. Patient has adequate support system and appropriate discharge plan. Plan: dry dip worker to provide supportive services as needed. Patient remains a reasonable candidate for transplant from a psychosocial perspective. Psychiatric Consult Recommended: No Transplant Hydrogeology Professor: Naima Rocha LMSW Abdominal Transplant Hydrogeology Professor [phone] Annual Transplant Caregiver Confirmation Note Caregiver Confirmation Date Primary Name of Primary: Mike Smith Relationship: Spouse - Confirmed during initial assessment - MOTOR COACH SUPERVISOR form received on 12/22/22 Secondary Name of [...] JACK/LD Items Still Pending: A-V fistula 10/13/2022 Dyslipidemia 08/30/2022 Assessment & Plan (02/24/2025 5:01 PM CDT): --Cont. sales route driver helper ASA, statin Assessment & Plan (02/24/2025 4:07 PM CDT): --Cont. sales route driver helper ASA, statin Assessment & Plan (02/23/2025 2:17 PM CDT): --Cont. sales route driver helper ASA, statin Assessment & Plan (02/22/2025 2:59 PM CDT): --Cont. sales route driver helper ASA, statin Assessment & Plan (02/21/2025 1:07 PM CDT): --Cont. sales route driver helper ASA, statin Assessment & Plan (02/20/2025 2:40 PM CDT): --Cont. sales route driver helper ASA, statin Assessment & Plan (02/19/2025 2:36 PM CDT): --Cont. sales route driver helper ASA, statin Assessment & Plan (02/18/2025 2:21 PM CDT): --Cont. sales route driver helper ASA, statin Assessment & Plan (02/17/2025 5:00 PM CDT): --Cont. 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 sales route driver helper Allopurinol Assessment & Plan (02/24/2025 4:07 PM CDT): --Cont. sales route driver helper Allopurinol Assessment & Plan (02/23/2025 2:17 PM CDT): --Cont. sales route driver helper Allopurinol Assessment & Plan (02/22/2025 2:59 PM CDT): --Cont. sales route driver helper Allopurinol Assessment & Plan (02/21/2025 1:07 PM CDT): --Cont. sales route driver helper Allopurinol Assessment & Plan (02/20/2025 2:40 PM CDT): --Cont. sales route driver helper Allopurinol Assessment & Plan (02/19/2025 2:36 PM CDT): --Cont. sales route driver helper Allopurinol Assessment & Plan (02/18/2025 2:21 PM CDT): --Cont. sales route driver helper Allopurinol Assessment & Plan (02/17/2025 5:00 PM CDT): --Cont. sales route driver helper Allopurinol Anemia of renal disease 05/11/2022 Assessment & Plan (02/24/2025 5:01 PM CDT): --Trend Assessment & Plan (02/24/2025 4:07 PM CDT): --Trend Assessment & Plan (02/23/2025 2:17 PM CDT): --Trend Assessment & Plan (02/22/2025 2:59 PM CDT): --Trend Assessment & Plan (02/21/2025 1:07 PM CDT): --Trend Assessment & Plan (02/20/2025 2:40 PM CDT): --Trend Assessment & Plan (02/19/2025 2:36 PM CDT): --Trend Assessment & Plan (02/18/2025 2:21 PM CDT): --Trend Assessment & Plan (02/17/2025 5:00 PM CDT): --Trend Thrombocytopenia 05/11/2022 Assessment & Plan (02/24/2025 5:01 PM CDT): Ddx: Possibly reactive --Trend Assessment & Plan (02/24/2025 4:07 PM CDT): Ddx: Possibly reactive --Trend Assessment & Plan (02/23/2025 2:17 PM CDT): Ddx: Possibly reactive --Trend Assessment & Plan (02/22/2025 2:59 PM CDT): Ddx: Possibly reactive --Trend Assessment & Plan (02/21/2025 1:07 PM CDT): Ddx: Possibly reactive --Trend Assessment & Plan (02/20/2025 2:40 PM CDT): Ddx: Possibly reactive --Trend Assessment & Plan (02/19/2025 2:36 PM CDT): Ddx: Possibly reactive --Trend Assessment & Plan (02/18/2025 2:21 PM CDT): Ddx: Possibly reactive --Trend Assessment & Plan (02/17/2025 5:00 PM CDT): Ddx: Possibly reactive --Trend 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 Possible prior peritonitis 09/2024 but patient unclear for sure. -Neg w/u: Lactic acid --Transplant nephro consult, transplant kidney U/S unremarkable --Cont. PD --Automation Mechanic Calcitriol, Cinacalcet --Phos binder started 02/18, incr to 1600 TID 02/21 --Trend labs, replete lytes prn --Patient request liberalization of diet 02/20. Assessment & Plan (02/24/2025 4:07 PM CDT): -Txp 2018, Rejected 2021, HD via RUE AVF through 09/2023 but had frequent obstructions, switched to PD. Possible prior peritonitis 09/2024 but patient unclear for sure. -Neg w/u: Lactic acid --Transplant nephro consult, transplant kidney U/S unremarkable --Cont. PD --Automation Mechanic Calcitriol, Cinacalcet --Phos binder started 02/18, incr to 1600 TID 02/21 --Trend labs, replete lytes prn --Patient request liberalization of diet 02/20. Assessment & Plan (02/23/2025 2:17 PM CDT): -Txp 2018, Rejected 2021, HD via RUE AVF through 09/2023 but had frequent obstructions, switched to PD. Possible prior peritonitis 09/2024 but patient unclear for sure. -Neg w/u: Lactic acid --Transplant nephro consult, transplant kidney U/S unremarkable --Restart PD 02/17 --Automation Mechanic Calcitriol, Cinacalcet --Phos binder started 02/18, incr to 1600 TID 02/21 --Trend labs, replete lytes prn --Patient request liberalization of diet 02/20. Assessment & Plan (02/22/2025 2:59 PM CDT): -Txp 2018, Rejected 2021, HD via RUE AVF through 09/2023 but had frequent obstructions, switched to PD. Possible prior peritonitis 09/2024 but patient unclear for sure. -Neg w/u: Lactic acid --Transplant nephro consult, transplant kidney U/S unremarkable --Restart PD 02/17 --Automation Mechanic Calcitriol, Cinacalcet --Phos binder started 02/18, incr to 1600 TID 02/21 --Trend labs, replete lytes prn --Patient request liberalization of diet 02/20. --If needs OPAT, will need powerline, not midline Assessment & Plan (02/21/2025 1:16 PM CDT): -Txp 2018, Rejected 2021, HD via RUE AVF through 09/2023 but had frequent obstructions, switched to PD. Possible prior peritonitis 09/2024 but patient unclear for sure. -Neg w/u: Lactic acid --Transplant nephro consult, transplant kidney U/S unremarkable --Restart PD 02/17 --Automation Mechanic Calcitriol, Cinacalcet --Phos binder started 02/18, consider increase as level remains >7 --Trend labs, replete lytes prn --Patient request liberalization of diet 02/20. Assessment & Plan (02/20/2025 2:40 PM CDT): -Txp 2018, Rejected 2021, HD via RUE AVF through 09/2023 but had frequent obstructions, switched to PD. Possible prior peritonitis 09/2024 but patient unclear for sure. -Neg w/u: Lactic acid --Transplant nephro consult, transplant kidney U/S unremarkable --Restart PD 02/17 --Automation Mechanic Calcitriol, Cinacalcet --Phos binder started 02/18 --Trend labs, replete lytes prn --Patient request liberalization. Assessment & Plan (02/19/2025 3:20 PM CDT): -Txp 2018, Rejected 2021, HD via RUE AVF through 09/2023 but had frequent obstructions, switched to PD. Possible prior peritonitis 09/2024 but patient unclear for sure. -Neg w/u: Lactic acid --Transplant nephro consult, transplant kidney U/S unremarkable --Restart PD 02/17 --Automation Mechanic Calcitriol, Cinacalcet --Phos binder started 02/18 --Trend labs, replete lytes prn --Phos restricted diet. Otherwise patient request liberalization. Assessment & Plan (02/18/2025 2:21 PM CDT): -Txp 2018, Rejected 2021, HD via RUE AVF through 09/2023 but had frequent obstructions, switched to PD. Possible prior peritonitis 09/2024 but patient unclear for sure. -Neg w/u: Lactic acid --Transplant nephro consult, check transplant kidney U/S --Restart PD 02/17 --Automation Mechanic Calcitriol, Cinacalcet --Consider phos binder --Trend labs, replete lytes prn --Phos restricted diet. Otherwise patient request liberalization. Assessment & Plan (02/17/2025 5:00 PM CDT): -Txp 2018, Rejected 2021, HD via RUE AVF through 09/2023 but had frequent obstructions, switched to PD. Possible prior peritonitis 09/2024 but patient unclear for sure. -Neg w/u: Lactic acid --Transplant nephro consult --Restart PD 02/17 --Automation Mechanic Calcitriol, Cinacalcet --Trend labs Orthostatic hypotension 10/27/2021 Type 2 diabetes mellitus wit h diabetic chronic kidney disease, unspecified CKD stage, unspecified whether residential insulin use 10/20/2021 Assessment & Plan (02/24/2025 5:01 PM CDT): -Recent A1c 6.9 (12/2024) --Hold sales route driver helper sitagliptin --Cont. SSI 0-12 --02/19: Lantus 5, aspart 4 TID AC --02/20: Lantus 8 --02/21: Lantus 10 --02/22: Lantus 12 --02/23: Lantus 15, aspart 6 TID AC --Resume home meds on DC Assessment & Plan (02/24/2025 4:07 PM CDT): --Hold sales route driver helper sitagliptin --Cont. SSI 0-12 --02/19: Lantus 5, aspart 4 TID AC --02/20: Lantus 8 --02/21: Lantus 10 --02/22: Lantus 12 --02/23: Lantus 15, aspart 6 TID AC Assessment & Plan (02/23/2025 2:17 PM CDT): --Hold sales route driver helper sitagliptin --Cont. SSI 0-12 --02/19: Lantus 5, aspart 4 TID AC --02/20: Lantus 8 --02/21: Lantus 10 --02/22: Lantus 12 --02/23: Lantus 15, aspart 6 TID AC Assessment & Plan (02/22/2025 2:59 PM CDT): --Hold sales route driver helper sitagliptin --Cont. SSI 0-12 --02/19: Lantus 5, aspart 4 TID AC --02/20: Lantus 8 --02/21: Lantus 10 --02/22: Lantus 12 Assessment & Plan (02/21/2025 1:16 PM CDT): --Hold sales route driver helper sitagliptin --Cont. SSI 0-12 --02/19: Lantus 5, aspart 4 TID AC --02/20: Lantus 8 --02/21: Lantus 10 Assessment & Plan (02/20/2025 2:40 PM CDT): --Hold sales route driver helper sitagliptin --Cont. SSI 0-12 --02/19: Lantus 5, aspart 4 TID AC --02/20: Lantus 8 Assessment & Plan (02/19/2025 3:20 PM CDT): --Hold sales route driver helper sitagliptin --Cont. SSI 0-12 --02/19: Lantus 5, aspart 4 TID AC Assessment & Plan (02/18/2025 2:21 PM CDT): --Hold sales route driver helper sitagliptin --Cont. SSI 0-12 Assessment & Plan (02/17/2025 5:00 PM CDT): --Hold sales route driver helper sitagliptin --Cont. SSI 0-12 Hyperparathyroidism 10/20/2021 Assessment & Plan (02/24/2025 5:01 PM CDT): -Txp 2018, Rejected 2021, HD via RUE AVF through 09/2023 but had frequent obstructions, switched to PD. Possible prior peritonitis 09/2024 but patient unclear for sure. -Neg w/u: Lactic acid --Transplant nephro consult, transplant kidney U/S unremarkable --Cont. PD --Automation Mechanic Calcitriol, Cinacalcet --Phos binder started 02/18, incr to 1600 TID 02/21 --Trend labs, replete lytes prn --Patient request liberalization of diet 02/20. Assessment & Plan (02/24/2025 4:07 PM CDT): -Txp 2018, Rejected 2021, HD via RUE AVF through 09/2023 but had frequent obstructions, switched to PD. Possible prior peritonitis 09/2024 but patient unclear for sure. -Neg w/u: Lactic acid --Transplant nephro consult, transplant kidney U/S unremarkable --Cont. PD --Automation Mechanic Calcitriol, Cinacalcet --Phos binder started 02/18, incr to 1600 TID 02/21 --Trend labs, replete lytes prn --Patient request liberalization of diet 02/20. Assessment & Plan (02/23/2025 2:17 PM CDT): -Txp 2018, Rejected 2021, HD via RUE AVF through 09/2023 but had frequent obstructions, switched to PD. Possible prior peritonitis 09/2024 but patient unclear for sure. -Neg w/u: Lactic acid --Transplant nephro consult, transplant kidney U/S unremarkable --Restart PD 02/17 --Automation Mechanic Calcitriol, Cinacalcet --Phos binder started 02/18, incr to 1600 TID 02/21 --Trend labs, replete lytes prn --Patient request liberalization of diet 02/20. Assessment & Plan (02/22/2025 2:59 PM CDT): -Txp 2018, Rejected 2021, HD via RUE AVF through 09/2023 but had frequent obstructions, switched to PD. Possible prior peritonitis 09/2024 but patient unclear for sure. -Neg w/u: Lactic acid --Transplant nephro consult, transplant kidney U/S unremarkable --Restart PD 02/17 --Automation Mechanic Calcitriol, Cinacalcet --Phos binder started 02/18, incr to 1600 TID 02/21 --Trend labs, replete lytes prn --Patient request liberalization of diet 02/20. --If needs OPAT, will need powerline, not midline Assessment & Plan (02/21/2025 1:16 PM CDT): -Txp 2018, Rejected 2021, HD via RUE AVF through 09/2023 but had frequent obstructions, switched to PD. Possible prior peritonitis 09/2024 but patient unclear for sure. -Neg w/u: Lactic acid --Transplant nephro consult, transplant kidney U/S unremarkable --Restart PD 02/17 --Automation Mechanic Calcitriol, Cinacalcet --Phos binder started 02/18, consider increase as level remains >7 --Trend labs, replete lytes prn --Patient request liberalization of diet 02/20. Assessment & Plan (02/20/2025 2:40 PM CDT): -Txp 2018, Rejected 2021, HD via RUE AVF through 09/2023 but had frequent obstructions, switched to PD. Possible prior peritonitis 09/2024 but patient unclear for sure. -Neg w/u: Lactic acid --Transplant nephro consult, transplant kidney U/S unremarkable --Restart PD 02/17 --Automation Mechanic Calcitriol, Cinacalcet --Phos binder started 02/18 --Trend labs, replete lytes prn --Patient request liberalization. Assessment & Plan (02/19/2025 3:20 PM CDT): -Txp 2018, Rejected 2021, HD via RUE AVF through 09/2023 but had frequent obstructions, switched to PD. Possible prior peritonitis 09/2024 but patient unclear for sure. -Neg w/u: Lactic acid --Transplant nephro consult, transplant kidney U/S unremarkable --Restart PD 02/17 --Automation Mechanic Calcitriol, Cinacalcet --Phos binder started 02/18 --Trend labs, replete lytes prn --Phos restricted diet. Otherwise patient request liberalization. Assessment & Plan (02/18/2025 2:21 PM CDT): -Txp 2018, Rejected 2021, HD via RUE AVF through 09/2023 but had frequent obstructions, switched to PD. Possible prior peritonitis 09/2024 but patient unclear for sure. -Neg w/u: Lactic acid --Transplant nephro consult, check transplant kidney U/S --Restart PD 02/17 --Automation Mechanic Calcitriol, Cinacalcet --Consider phos binder --Trend labs, replete lytes prn --Phos restricted diet. Otherwise patient request liberalization. Assessment & Plan (02/17/2025 5:00 PM CDT): -Txp 2018, Rejected 2021, HD via RUE AVF through 09/2023 but had frequent obstructions, switched to PD. Possible prior peritonitis 09/2024 but patient unclear for sure. -Neg w/u: Lactic acid --Transplant nephro consult --Restart PD 02/17 --Automation Mechanic Calcitriol, Cinacalcet --Trend labs Stage 3b chronic kidney disease with nephrotic s yndrome 10/20/2021 Overview (05/11/2022): Baseline SCr: 1.8-2.0, 2.2, 2.7, 3.7, 3.1, 3.8 UPC: 2, 5, 8.2, 11.4, 11.9 g/g Parathyroid adenoma 09/21/2021 History of gout 09/21/2021 Assessment & Plan (02/24/2025 5:01 PM CDT): --Cont. sales route driver helper Allopurinol Assessment & Plan (02/24/2025 4:07 PM CDT): --Cont. sales route driver helper Allopurinol Assessment & Plan (02/23/2025 2:17 PM CDT): --Cont. sales route driver helper Allopurinol Assessment & Plan (02/22/2025 2:59 PM CDT): --Cont. sales route driver helper Allopurinol Assessment & Plan (02/21/2025 1:07 PM CDT): --Cont. sales route driver helper Allopurinol Assessment & Plan (02/20/2025 2:40 PM CDT): --Cont. sales route driver helper Allopurinol Assessment & Plan (02/19/2025 2:36 PM CDT): --Cont. sales route driver helper Allopurinol Assessment & Plan (02/18/2025 2:21 PM CDT): --Cont. sales route driver helper Allopurinol Assessment & Plan (02/17/2025 5:00 PM CDT): --Cont. sales route driver helper Allopurinol Kidney transplanted, S/P LUR-TXP in 10/13/2018 Overview [...] increased to 80 Units twice a week. Assessment & Plan (02/24/2025 5:01 PM CDT): -Txp 2018, Rejected 2021, HD via RUE AVF through 09/2023 but had frequent obstructions, switched to PD. Possible prior peritonitis 09/2024 but patient unclear for sure. -Neg w/u: Lactic acid --Transplant nephro consult, transplant kidney U/S unremarkable --Cont. PD --Automation Mechanic Calcitriol, Cinacalcet --Phos binder started 02/18, incr to 1600 TID 02/21 --Trend labs, replete lytes prn --Patient request liberalization of diet 02/20. Assessment & Plan (02/24/2025 4:07 PM CDT): -Txp 2018, Rejected 2021, HD via RUE AVF through 09/2023 but had frequent obstructions, switched to PD. Possible prior peritonitis 09/2024 but patient unclear for sure. -Neg w/u: Lactic acid --Transplant nephro consult, transplant kidney U/S unremarkable --Cont. PD --Automation Mechanic Calcitriol, Cinacalcet --Phos binder started 02/18, incr to 1600 TID 02/21 --Trend labs, replete lytes prn --Patient request liberalization of diet 02/20. Assessment & Plan (02/23/2025 2:17 PM CDT): -Txp 2018, Rejected 2021, HD via RUE AVF through 09/2023 but had frequent obstructions, switched to PD. Possible prior peritonitis 09/2024 but patient unclear for sure. -Neg w/u: Lactic acid --Transplant nephro consult, transplant kidney U/S unremarkable --Restart PD 02/17 --Automation Mechanic Calcitriol, Cinacalcet --Phos binder started 02/18, incr to 1600 TID 02/21 --Trend labs, replete lytes prn --Patient request liberalization of diet 02/20. Assessment & Plan (02/22/2025 2:59 PM CDT): -Txp 2018, Rejected 2021, HD via RUE AVF through 09/2023 but had frequent obstructions, switched to PD. Possible prior peritonitis 09/2024 but patient unclear for sure. -Neg w/u: Lactic acid --Transplant nephro consult, transplant kidney U/S unremarkable --Restart PD 02/17 --Automation Mechanic Calcitriol, Cinacalcet --Phos binder started 02/18, incr to 1600 TID 02/21 --Trend labs, replete lytes prn --Patient request liberalization of diet 02/20. --If needs OPAT, will need powerline, not midline Assessment & Plan (02/21/2025 1:16 PM CDT): -Txp 2018, Rejected 2021, HD via RUE AVF through 09/2023 but had frequent obstructions, switched to PD. Possible prior peritonitis 09/2024 but patient unclear for sure. -Neg w/u: Lactic acid --Transplant nephro consult, transplant kidney U/S unremarkable --Restart PD 02/17 --Automation Mechanic Calcitriol, Cinacalcet --Phos binder started 02/18, consider increase as level remains >7 --Trend labs, replete lytes prn --Patient request liberalization of diet 02/20. Assessment & Plan (02/20/2025 2:40 PM CDT): -Txp 2018, Rejected 2021, HD via RUE AVF through 09/2023 but had frequent obstructions, switched to PD. Possible prior peritonitis 09/2024 but patient unclear for sure. -Neg w/u: Lactic acid --Transplant nephro consult, transplant kidney U/S unremarkable --Restart PD 02/17 --Automation Mechanic Calcitriol, Cinacalcet --Phos binder started 02/18 --Trend labs, replete lytes prn --Patient request liberalization. Assessment & Plan (02/19/2025 3:20 PM CDT): -Txp 2018, Rejected 2021, HD via RUE AVF through 09/2023 but had frequent obstructions, switched to PD. Possible prior peritonitis 09/2024 but patient unclear for sure. -Neg w/u: Lactic acid --Transplant nephro consult, transplant kidney U/S unremarkable --Restart PD 02/17 --Automation Mechanic Calcitriol, Cinacalcet --Phos binder started 02/18 --Trend labs, replete lytes prn --Phos restricted diet. Otherwise patient request liberalization. Assessment & Plan (02/18/2025 2:21 PM CDT): -Txp 2018, Rejected 2021, HD via RUE AVF through 09/2023 but had frequent obstructions, switched to PD. Possible prior peritonitis 09/2024 but patient unclear for sure. -Neg w/u: Lactic acid --Transplant nephro consult, check transplant kidney U/S --Restart PD 02/17 --Automation Mechanic Calcitriol, Cinacalcet --Consider phos binder --Trend labs, replete lytes prn --Phos restricted diet. Otherwise patient request liberalization. Assessment & Plan (02/17/2025 5:00 PM CDT): -Txp 2018, Rejected 2021, HD via RUE AVF through 09/2023 but had frequent obstructions, switched to PD. Possible prior peritonitis 09/2024 but patient unclear for sure. -Neg w/u: Lactic acid --Transplant nephro consult --Restart PD 02/17 --Automation Mechanic Calcitriol, Cinacalcet --Trend labs Hypertension 11/19/2020 Assessment & Plan (02/24/2025 5:01 PM CDT): -Patient has been prescribed Metoprolol Succinate BID (confirmed that it is not daily) for >2 years for what appears to be intermittent sinus tachy. Possibly around dialysis days when on HD. Possible orthostatic mediated given positional sxs when I asked the patient. -Pt follow w/ OP cards (last 09/2024): Per last note, confirmed she is taking BOTH nifedipine and diltiazem together. --Cont. sales route driver helper metop (increased to BID as prescribed), bumex, Doxazosin qhs --02/18: restart sales route driver helper Dilt --02/22: restart sales route driver helper Nifedipine (confirmed taking 30 BID at home) Assessment & Plan (02/24/2025 4:07 PM CDT): -Patient has been prescribed Metoprolol Succinate BID (confirmed that it is not daily) for >2 years for what appears to be intermittent sinus tachy. Possibly around dialysis days when on HD. Possible orthostatic mediated given positional sxs when I asked the patient. -Pt follow w/ OP cards (last 09/2024): Per last note, confirmed she is taking BOTH nifedipine and diltiazem together. --Cont. sales route driver helper metop (increased to BID as prescribed), bumex, Doxazosin qhs --02/18: restart sales route driver helper Dilt --02/22: restart sales route driver helper Nifedipine (confirmed taking 30 BID at home) Assessment & Plan (02/23/2025 2:17 PM CDT): -Patient has been prescribed Metoprolol Succinate BID (confirmed that it is not daily) for >2 years for what appears to be intermittent sinus tachy. Possibly around dialysis days when on HD. Possible orthostatic mediated given positional sxs when I asked the patient. -Pt follow w/ OP cards (last 09/2024): Per last note, confirmed she is taking BOTH nifedipine and diltiazem together. --Cont. sales route driver helper metop (increased to BID as prescribed), bumex, Doxazosin qhs --02/18: restart sales route driver helper Dilt --02/22: restart sales route driver helper Nifedipine (confirmed taking 30 BID at home) Assessment & Plan (02/22/2025 2:59 PM CDT): -Patient has been prescribed Metoprolol Succinate BID (confirmed that it is not daily) for >2 years for what appears to be intermittent sinus tachy. Possibly around dialysis days when on HD. Possible orthostatic mediated given positional sxs when I asked the patient. -Pt follow w/ OP cards (last 09/2024): Per last note, confirmed she is taking BOTH nifedipine and diltiazem together. --Cont. sales route driver helper metop (increased to BID as prescribed), bumex, Doxazosin qhs --02/18: restart sales route driver helper Dilt --02/22: restart sales route driver helper Nifedipine (confirmed taking 30 BID at home) Assessment & Plan (02/21/2025 1:07 PM CDT): -Patient has been prescribed Metoprolol Succinate BID (confirmed that it is not daily) for >2 years for what appears to be intermittent sinus tachy. Possibly around dialysis days when on HD. Possible orthostatic mediated given positional sxs when I asked the patient. --Cont. sales route driver helper metop (increased to BID as prescribed), bumex, Doxazosin qhs --02/18: restart sales route driver helper Dilt --Consider additional agents if persistently SBP >160s Assessment & Plan (02/20/2025 2:40 PM CDT): -Patient has been prescribed Metoprolol Succinate BID (confirmed that it is not daily) for >2 years for what appears to be intermittent sinus tachy. Possibly around dialysis days when on HD. Possible orthostatic mediated given positional sxs when I asked the patient. --Cont. sales route driver helper metop (increased to BID as prescribed), bumex, Doxazosin qhs --02/18: restart sales route driver helper Dilt --Consider additional agents if persistently SBP >160s Assessment & Plan (02/19/2025 3:20 PM CDT): -Patient has been prescribed Metoprolol Succinate BID (confirmed that it is not daily) for >2 years for what appears to be intermittent sinus tachy. Possibly around dialysis days when on HD. Possible orthostatic mediated given positional sxs when I asked the patient. --Cont. sales route driver helper metop (increased to BID as prescribed), bumex, Doxazosin qhs --02/18: restart sales route driver helper Dilt --Consider additional agents if persistently SBP >160s Assessment & Plan (02/18/2025 2:21 PM CDT): -Patient has been prescribed Metoprolol Succinate BID (confirmed that it is not daily) for >2 years for what appears to be intermittent sinus tachy. Possibly around dialysis days when on HD. Possible orthostatic mediated given positional sxs when I asked the patient. --Cont. sales route driver helper metop (increased to BID as prescribed), bumex, Doxazosin qhs --Consider additional agents if persistently SBP >160s Assessment & Plan (02/17/2025 5:00 PM CDT): --Cont. sales route driver helper metop, bumex --Restart Doxazosin qhs Assessment & Plan (01/17/2023 10:59 PM CDT): BP in clinic today is appropriate. Continue current management. 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 sales route driver helper ASA, statin Assessment & Plan (02/24/2025 4:07 PM CDT): --Cont. sales route driver helper ASA, statin Assessment & Plan (02/23/2025 2:17 PM CDT): --Cont. sales route driver helper ASA, statin Assessment & Plan (02/22/2025 2:59 PM CDT): --Cont. sales route driver helper ASA, statin Assessment & Plan (02/21/2025 1:07 PM CDT): --Cont. sales route driver helper ASA, statin Assessment & Plan (02/20/2025 2:40 PM CDT): --Cont. sales route driver helper ASA, statin Assessment & Plan (02/19/2025 2:36 PM CDT): --Cont. sales route driver helper ASA, statin Assessment & Plan (02/18/2025 2:21 PM CDT): --Cont. sales route driver helper ASA, statin Assessment & Plan (02/17/2025 5:00 PM CDT): --Cont. sales route driver helper ASA, statin Primary localized osteoarthrosis of lower leg Primary osteoarthritis of right shoulder Long-term use of immunosuppressant medication Resolved Problems Problem Noted Date Diagnosed Date Resolved Date Preoperative examination 08/30/2022 Assessment & Plan (08/30/2022 4:53 PM COMPUTER SERVICE TECHNICIAN): Principal issue for the consultation today. Patient [...] stress echo. - dobutamine stress echo ordered Acute nonintractable headache 10/21/2021 10/22/2021 Non-intractable vomiting 10/21/2021 Personal history of COVID-19 10/21/2021 10/22/2021 Encounters Date Type Department Care Team Description 07/16/2025 Telephone [facility] TRANSPLANT [address] [place] [address] Elvia Alaniz CPC Kidney Transplant Evaluation 07/16/2025 Telephone [facility] TRANSPLANT [address] [place] [address] Lilian Sky RN Kidney Transplant Evaluation 07/01/2025 12:01 PM CDT - 07/01/2025 11:59 PM CDT Hospital Encounter [facility] Health Imaging Services - Radiology [address] [place] [address] Jr Obregon MD Discharge Disposition: Home or Self Care 07/01/2025 11:55 AM CDT - 07/01/2025 12:00 PM CDT Hospital Encounter [facility] Health Imaging Services - Radiology [address] [place] [phone] Jr Obregon MD Discharge Disposition: Home or Self Care 07/01/2025 10:58 AM CDT - 07/01/2025 11:54 AM CDT Hospital Encounter [facility] Health Pain Care [address] [place] [phone] Discharge Disposition: Home or Self Care 06/10/2025 Orders Only [facility] Health Pain Care [address] [place] [phone] Jr Obregon MD Primary osteoarthritis of both knees 06/09/2025 Lab Requisition [facility] MAIN LAB [address] [place] [address] Quintin Snow MD 05/28/2025 Refill [facility] - Nephrology [address] [place] [phone] Reva Edmond MD Refill Request 05/21/2025 Refill [facility] - Nephrology [address] [place] [phone] Abhi Jackson MD Refill Request 05/13/2025 Refill [facility] - Nephrology [address] [place] [phone] Abhi Jackson MD Refill Request 04/30/2025 1:45 AM CDT - 04/30/2025 11:59 PM CDT Hospital Encounter [facility] MAIN LAB [address] [place] [address] Discharge Disposition: Home or Self Care from Last 3 Months Immunizations Immunization Administration [...] you have a drink containing alcohol? Never 02/17/2025 Q2: How many drinks containi ng alcohol do you have on a typical day when you are drinking? Patient does not drink Q3: How often do you have si x or more drinks on one occasion? Never 02/17/2025 Overall Financial Resource Strain (CARDIA) Answe r Date Recorded How hard is it for you to pa y for the very basics like food, housing, medical care, and heating? Not very hard 02/19/2025 PHQ-2 Answer Date Recorded PHQ2 TOTAL SCORE 0 12/14/2021 [facility] - Occupational Stress Questionnaire Answer Date Recorded Do you feel stress - tense, restless, nervous, or anxious, or unable to sleep at night because your mind is troubled all the time - these days? Only a little 02/19/2025 Hunger Vital Sign Answer Date Recorded Within the past 12 months, y ou worried that your food would run out before you got the money to buy more. Never true 02/20/20 25 Within the past 12 months, t he food you bought just didn't last and you didn't have money to get more. Never true 02/19/2025 PRAPARE - Transportation Answer Date Re corded In the past 12 months, has l ack of transportation kept you from medical appointments or from getting medications? No 01/24 In the past 12 months, has l ack of transportation kept you from meetings, work, or from getting things needed for daily living? No 02/19/2025 Housing Stability Vital Sign Answer Nick e Recorded In the last 12 months, was t here a time when you were not able to pay the mortgage or rent on time? No 02/19/2025 In the past 12 months, how m any times have you moved where you were living? 0 02/19/2025 At any time in the past 12 m [facility], were you homeless or living in a [facility] (including now)? No 02/19/2025 Comments No Sex and Gender Information Value Date Recorded Sex Assigned at Not on file Legal Sex Female 8:35 AM COMPUTER SERVICE TECHNICIAN Gender Identity Not on file Sexual Orientation Not on file Last Filed Vital Signs Vital Sign Reading Time Taken Comments Blood Pressure 126/81 07/01/2025 11:19 AM CDT Pulse 86 07/01/2025 11:42 AM CDT Temperature 36.3 C (97.4 F) 07/01/2025 11:19 AM CDT Respiratory Rate 16 07/01/2025 11:42 AM CDT Oxygen Saturation 100% 07/01/2025 11:42 AM CDT Inhaled Oxygen Concentration - - Weight 79.2 kg (174 lb 9.7 oz) 07/01/2025 11:19 AM CDT Height 162.6 cm (5' 4) 07/01/2025 11:19 AM CDT Body Mass Index 29.97 07/01/2025 11:19 AM CDT Plan of Treatment Upcoming Encounters Date Type Department Care Team (Late st Contact Info) Description 09/22/2025 10:15 AM COMPUTER SERVICE TECHNICIAN Appointment [facility] [id number] [place] [phone] Quintin Snow MD [address] [place] [address] [place] [address] 09/22/2025 11:00 AM COMPUTER SERVICE TECHNICIAN Appointment [facility] [phone] [place] [phone] Quintin Snow MD [facility] [place] [address] Health Maintenance Due Date Last Done Comments [...] 12 MONTHS 12/14/2022 12/14/2021 MAMMOGRAM 11/09/2023 11/09/2021 DEPRESSION SCREENING 09/25/2024 02/14/2022 COVID-19 VACCINE (10 - Pfizer risk 2023- season) 2025 05/30/2024, 06/26/2023, 03/06/2023, Additional history exists INFLUENZA VACCINE (#1) 2025 , 06/09/2023, 06/23/2022, Additional history exists DIABETES-HGB A1C 06/25/2025 12/24/2024, , 11/07/2022, Additional history exists PNEUMOCOCCAL VACCINE 50+ (3 of 3 - PCV20 or PCV21) 12/14/2026 12/14/2021, 09/21/2021 COLON [...] 126/81(2024 11:19 AM CDT) No Lilian Sky RN Medication Management [...] dose Medication Management General No Tabitha Vizcarra, ALYSON Note: Expected end date: ongoing Interventions: Take all medications as prescribed Let your doctor know right away about any changes in your medications Make sure to request a refill of your medication at least one week prior to your last dose Medical Devices Implanted Type Area Animal Tech Device Identifier Shelf Expiration Date Model / Serial / Lot Kit Prabhjotfrank Drflw Embosafe Chrnc Dlys Implanted:Qty: 1 on 06/08/2022 at [facility] [employer] 10/25/2024 [id number] / [id number] Graft Vasc 4-7mm 45cm Hep Propaten Ptfe - [id number] Implanted:Qty: 1 on 12/07/2022 by Abundio Benjamin MD at [facility] Right: Arm [employer] [id number] 06/15/2026 [id number] / [id number] / Stent Eprsth Sprfc Fem Art Ilium 5cm 8mm - [id number] Implanted:Qty: 1 on 08/04/2023 by Flakito Yu MD at [facility] Right: Arm [employer] 05/09/2026 [id number] / [id number] / Kit Durathane Drflw Embosafe Chrnc Dlys Implanted:Qty: 1 on 08/24/2023 at [facility] Left: Chest [employer] 01/22/2026 [id number] / [id number] Description:LIJ by Dr. Mike Kit Durathane Drflw Embosafe Chrnc Dlys Implanted:Qty: 1 on 09/13/2023 at [facility] Left: Chest [employer] 09/24/2025 [id number] / / [id number] Description:implaned by Dr. Mike Perioneal Dialysis Catheter Implanted:Qty: 1 on 09/27/2023 by Fred Jo MD at [facility] Left: Abdomen 06/22/2027 [id number] / / [id number] Description:Peritoneal Dialy sis Catheter, 57cm, Curl Cath, 2 Cuff Procedures Procedure Name Priority Date/Time Associated Diagnosis Comments XR PELVIS 1 OR 2VW Routine 07/01/2025 12 :29 PM CDT Status post fall Pain in pelvis XR SACRUM AND COCCYX Routine 07/01/2025 12:29 PM CDT Status post fall Pain in sacrum Coccyx pain PAIN MANAGEMENT PROCEDURE TIME Routine 07/01/2025 11:53 AM CDT Arthritis of knee HOLD HLA SPECIMEN Routine 06/03/2025 3:0 1 PM CDT HLA ANTIBODY SCREEN LUM CLASS 1 SAB Routine 04/30/2025 3:06 PM CDT Pre-transplant evaluation for kidney transplant HLA ANTIBODY SCREEN LUM CLASS 2 SAB Routine 04/30/2025 3:06 PM CDT Pre-transplant evaluation for kidney transplant HEPATITIS C ANTIBODY Routine 12/24/2024 8:24 AM CDT Pre-kidney transplant, listed ESRD (end stage renal disease) (HCC) Dependence on peritoneal dialysis Type 2 diabetes mellitus with chronic kidney disease on chronic dialysis, unspecified whether terminologist insulin use (HCC) Hypertension, unspecified type Takotsubo cardiomyopathy 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) Recurrent UTI IPMN (intraductal papillary mucinous neoplasm) Tachycardia HEMOGLOBIN A1C Routine 12/24/2024 8:24 AM CDT Pre-kidney transplant, listed ESRD (end stage renal disease) (HCC) Dependence on peritoneal dialysis Type 2 diabetes mellitus with chronic kidney disease on chronic dialysis, unspecified whether residential insulin use (HCC) Hypertension, unspecified type Takotsubo cardiomyopathy 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) Recurrent UTI IPMN (intraductal papillary mucinous neoplasm) Tachycardia DEXA BONE DENSITY AXIAL SKELETON Routine 02/02/2022 9:11 AM CDT Hypocalcemia Age-related osteoporosis with current pathological fracture, initial encounter Screening for osteoporosis Localized osteoporosis ([place]) COLONOSCOPY Routine 11/17/2021 MAMMOGRAM Routine 11/09/2021 from Last 3 Months or Most Recently Relevant to Health Maintenance Results * XR Sacrum And Coccyx (07/01/2025 12:29 PM CDT) Anatomical Region Laterality Modality Spine Computed Radiogr aphy 07/01/2025 12:3 7 PM CDT Narrative 07/01/2025 12:40 PM CDT PROCEDURE: XR SACRUM AND COCCYX, DATE/TIME OF EXAM: 07/01/2025 12:29 PM, LOCATION [facility] INDICATION: Z91.81: Status post fall. M53.3: Pain in sacrum. M53.3: Coccyx pain. FINDINGS/IMPRESSION: A dialysis catheter is unchanged. There is a josemanuel within the pelvis superimposing the lumbosacral spine. Mild degenerative change of the sacroiliac joints and degenerative change of the hips and symphysis pubis are present without fracture or dislocation. Edited by Abbie Mccann on 07/01/2025 12:38 PM > Interpreting Provider: Gregory Campos MD on 07/01/2025 12:40 PM Procedure Note Gregory Campos MD - 07/01/2025 PROCEDURE: XR SACRUM AND COCCYX, DATE/TIME OF EXAM: 07/01/2025 12:29PM, LOCATION [facility] INDICATION: Z91.81: Status post fall. M53.3: Pain in sacrum. M53.3: Coccyx pain. FINDINGS/IMPRESSION: A dialysis catheter is unchanged. There is a josemanuel within the pelvis superimposing the lumbosacral spine. Mild degenerative change of the sacroiliac joints and degenerative change of the hips and symphysispubis are present without fracture or dislocation. Edited by Abbie Mccann on 07/01/2025 12:38 PM > Interpreting Provider: Gregory Campos MD on 07/01/2025 12:40 PM Jr Obregon MD DIAGNOSTIC IMAGING ORDERABLES Fi nal Result * XR Pelvis 1 or 2Vw (07/01/2025 12:29 PM CDT) Anatomical Region Laterality Modality Pelvis Computed Radiogr aphy 07/01/2025 12:3 1 PM CDT Narrative 07/01/2025 12:40 PM CDT PROCEDURE: XR PELVIS 1 OR 2VW, DATE/TIME OF EXAM: 07/01/2025 12:29 PM, LOCATION [facility] INDICATION: Z91.81: Status post fall. R10.20: Pain in pelvis. AP PELVIS HISTORY: Injury. FINDINGS/IMPRESSION: A dialysis catheter is present within the pelvis. There is a metal josemanuel superimposing the lumbar and proximal sacral spine. Degenerative change of the sacroiliac joints and bilateral hips and symphysis pubis are stable. There is no acute fracture. Edited by Daria Valdez on 07/01/2025 12:32 PM > Interpreting Provider: Gregory Campos MD on 07/01/2025 12:40 PM Procedure Note Gregory Campos MD - 07/01/2025 PROCEDURE: XR PELVIS 1 OR 2VW, DATE/TIME OF EXAM: 07/01/2025 12:29 PM, LOCATION [facility] INDICATION: Z91.81: Status post fall. R10.20: Pain in pelvis. AP PELVIS HISTORY: Injury. FINDINGS/IMPRESSION: A dialysis catheter is present within the pelvis. There is a metal josemanuel superimposing the lumbar and proximal sacral spine. Degenerative changeof the sacroiliac joints and bilateral hips and symphysis pubis are stable. There is no acute fracture. Edited by Daria Valdez on 07/01/2025 12:32 PM > Interpreting Provider: Gregory Campos MD on 07/01/2025 12:40 PM us Jr Obregon MD DIAGNOSTIC IMAGING ORDERABLES Fi nal Result * Pain Management Procedure Time (07/01/2025 11:53 AM CDT) Anatomical Region Laterality Modality Radio Fluoroscop y Narrative 07/01/2025 11:45 AM CDT Jr Obregon MD 07/02/2025 8:10 AM 07/01/2025 Fluoroscopically Guided Bilateral knee Joint Injection Dx: 17.10 - Osteoarthritis [...] drape were applied to the knee Procedure: The knee injection was performed on the side(s) [...] on how to reach the clinic or medical radiation tech physician at anytime for questions or complaints. us Jr Obregon MD DIAGNOSTIC IMAGING ORDERABLES Fi nal Result * HOLD HLA SPECIMEN (06/03/2025 3:01 PM CDT) Hold HLA Specimen 06/09/2025 4:30 PM CDT [facility] ([facility]) Comment:The Hold HLA specime n has been received into the lab and will be held for 5 years at 4 degrees. Blood BLOOD SPECIMEN / Unknown 06/03/2025 3:01 PM CDT 06/09/2025 3:02 PM CDT us Quintin Snow MD LAB - BLOOD BANK ORDERABLES F inal Result [facility] ([facility]) [address] * HLA ANTIBODY SCREEN LUM CLASS 2 SAB (04/30/2025 3:06 PM CDT) % PRA 21 05/07/2025 5:02 PM CDT [facility] ([facility]) Class 2 LUM SAB Specificity DQ2, 4, 7, 8, 9DQA PRESENT 05/07/2025 5:02 PM CDT [facility] ([facility]) Class 2 SAB Test Date [id number] 05/07/2025 5:02 PM CDT [facility] ([facility]) Comment: Methodology - Luminex Bead-Based Immunoassay. This test was developed and its performance characteristics determined by the [facility]. It has not been cleared or approved by the U.S. Food and Drug Administration. The FDA has determined that such clearance or approval is not necessary. This test is used for clinical purposes. It should not be regarded as investigational or for research. This laboratory is certified under the Clinical Laboratory Improvement Amendments of 1988 (CLIA-88) as qualified to perform high complexity clinical laboratory testing. CLIA ID# [id number] Performed at: [facility], [facility] [place] [address] Supervisor Blood Donor Recruiters: Mihir Polo, Ph.D., D([facility]), Blood BLOOD SPECIMEN / Unknown No Charge Blood Draw / Unknown 04/30/2025 3:06 PM CDT 05/05/2025 3:07 PM CDT Quintin Snow MD LAB - BLOOD BANK ORDERABLES F inal Result Performing Organization Address City/State/[facility] Co de Phone Number [facility] ([facility]) [address] * HLA ANTIBODY SCREEN LUM CLASS 1 SAB (04/30/2025 3:06 PM CDT) Pathologist [facility] % PRA 0 05/07/2025 5:02 PM CDT [facility] ([facility]) Class 1 SAB Test Date [id number] 05/07/2025 5:02 PM CDT [facility] ([facility]) Comment: Methodology - Luminex Bead-Based Immunoassay. This test was developed and its performance characteristics determined by the [facility]. It has not been cleared or approved by the U.S. Food and Drug Administration. The FDA has determined that such clearance or approval is not necessary. This test is used for clinical purposes. It should not be regarded as investigational or for research. This laboratory is certified under the Clinical Laboratory Improvement Amendments of 1988 (CLIA-88) as qualified to perform high complexity clinical laboratory testing. CLIA ID# [id number] Performed at: [facility], [address] [place] [address] Supervisor Blood Donor Recruiters: Mihir Polo, Ph.D., D([facility]), Blood BLOOD SPECIMEN / Unknown No Charge Blood Draw / Unknown 04/30/2025 3:06 PM CDT 05/05/2025 3:07 PM CDT Quintin Snow MD LAB - BLOOD BANK ORDERABLES F inal Result Performing Organization Address City/[facility]/ZIP Co de Phone Number [facility]OR[facility] ([facility]) [address] [place] [address], [facility] * (ABNORMAL) HEMOGLOBIN A1C (12/24/2024 8:24 AM CDT) [facility] Hemoglobin A1c 6.9(H) <=5.6 % 12/24/2024 1:04 PM CDT [facility] Estimated Average Glucose 151 mg/dL 12/24/2024 1:04 PM CDT [facility] Comment: HbA1c Interpretation: Normal : < 5.7% Pre-diabetes: 5.7-6.4% Diabetes: Equal to or greater than 6.5% Test results diagnostic of diabetes should be repeated for confirmation. Treatment target values recommended by ADA and other clinical organizations should be used to evaluate metabolic control in patients. Reference: [place] Diabetes Association, Standards of Care in Diabetes -2020 In patients 70 years and older consider HbA1c target range of 7.0-7.5% (Reference: Maikel Mane, et al. JAMDA. 2012) The Sebia assay for the measurement of HbA1c is a National Glycohemoglobin Standardization Program (NGSP) certified method. Blood BLOOD SPECIMEN / Unknown Venipuncture / Unknown 12/24/2024 8:24 AM CDT 12/24/2024 8:40 AM CDT Fred Jo MD LAB - CHEMISTRY ORDERAB LES Final Result Performing Organization Address City/[facility]/ZIP Co de Phone Number [facility] [address] [place] [address], [place] [phone] * HEPATITIS C ANTIBODY (12/24/2024 8:24 AM CDT) Hepatitis C Antibody Non-react lakeshazhang Louise-reac tive 12/24/2024 9:31 AM CDT [facility] Comment:Hepatitis C Antibody screen indicates [...] LAB - CHEMISTRY ORDERAB LES Final Result [facility] [address] [address], [facility] [phone] * BONE DENSITY AXIAL SKELETON(1OR MORE SITES)[id number] (02/02/2022 9:11 AM CDT) Anatomical Region Laterality [...] ordering physician and is also available on [employer], the Radiology Department's computerized picture archive system. [...] theordering physician and is also available on [employer], the Radiology Department's computerized picture archive system. [...] PRIMO ROA D.O. on02/02/2022 4:15 PM . Result [facility] Francesca Calderón LADLE FILLER-MECHANICAL SYSTEMS DESIGNER DEXA ORDERABLES Final R esult * COLONOSCOPY (11/17/2021) Historical Provider MD SCANNING ONLY Final Res ult * MAMMOGRAM (11/09/2021) Anatomical Region Laterality Modality Other Historical Provider MD SCANNING ONLY Final Res ult from Last 3 Months or Most Recently Relevant to Health Maintenance Insurance MEDICARE ANTHEM MEDICARE ANTHEM Advance Directives * Full Code (Latest Code Status on File) Date Activated Date Inactivated Comments 02/16/2025 9:25 PM 02/24/2025 6:59 PM * Full Code Date Activated Date Inactivated Comments 10/14/2022 4:39 AM 10/14/2022 4:14 PM * Full Code Date Activated Date Inactivated Comments 06/07/2022 4:51 PM 06/13/2022 7:38 PM * Full Code Date Activated Date Inactivated Comments 04/22/2022 6:39 PM 04/28/2022 3:58 PM * Full Code Date Activated Date Inactivated Comments 01/27/2022 1:26 PM 01/30/2022 12:05 PM Care Teams Jet Dyeing Machine Operator Relationship Specialty Start Date End Date Compa Sam MD [address] [place] [address] PCP - General 12/28/22 Compa aSm MD [address] [place] [address] Family Medicine 09/29/22 Quintin Hope MD [address] [facility] [address] [place] [address] Nephrology 04/10/24
--- OUTSIDE RECORDS SUMMARY | 2025-07-25 01:10 | XMS_ITS | Encounter Summary ---
Author Organization [facility] Health Address [address] [place] [address] Care Team Providers Care Ground Operations Supervisor Name Role Phone Meryl Lacy Primary Care Provider [phone] Debbie Middleton Primary Care Provider +[phone] Compa Sam MD Primary Care Provider + [phone] Debbie Middleton Primary Care Provider [phone] Compa Sam MD Unavailable [phone] Debbie Middleton Primary Care Provider [phone] Compa Sam MD Primary Care Provider + [phone] Quintin Hope MD Unavailable [phone] Encounter Details Date Type Department Care Team (Late st Contact Info) Description 01/21/2021 [facility] Outpatient Visit [facility] [address] [place] [address] Estee Lindsey, JEWEL FLAT SURFACER-COP EXAMINER [address] [facility] [place] [address] Social History Tobacco Use Types Packs/Day Years Used Date Smoking Tobacco: Never Comments Unknown Sex and Gender Information Value Date Recorded Sex Assigned at Not on file Legal Sex Female 8:35 AM COMMUNICATION SPEC Gender Identity Not on file Sexual Orientation [...] st Contact Info) Description 09/22/2025 10:15 AM COMMUNICATION SPEC Appointment [address] [phone] Quintin Snow MD [address] [place] [address] [place] [address] 09/22/2025 11:00 AM COMMUNICATION SPEC Appointment [address] [phone] Quintin Snow MD [address] [place] [address] [place] [address] documented as of this encounter Visit Diagnoses Not on filedocumented in this encounter Additional Health Concerns Infection Onset Date Last Indicated Resolved Time COVID-19 Under Investigation 07/15/2022 07/15/2022 07/26/2022 4:33 AM CDT documented as of this encounter Care Teams Ground Operations Supervisor Relationship Specialty Start Date End Date Meryl Lacy DO [address] [place] [address] PCP - General 03/25/21 10/05/21 Debbie Middleton APRN-COP EXAMINER [address] [place] [address] PCP - General 10/06/21 08/29/22 Compa Sam MD [address] [place] [address] PCP - General Family Medicine 08/30/22 09/25/22 Debbie Middleton APRN-LETICIA [address] [place] [address] PCP - General 09/26/22 09/28/22 Debbie Middleton APRN-COP EXAMINER [address] [place] [address] PCP - General 10/11/22 12/27/22 Compa Sam MD [address] [facility] [address] [place] [address] PCP - General 12/28/22 Compa Sam MD [address] [facility] [address] [place] [address] Family Medicine 09/29/22 Quintin Hope MD [facility]4 [facility] [address] [place] [address] Nephrology 04/10/24 documented as of this encounter
--- OUTSIDE RECORDS SUMMARY | 2025-07-25 01:10 | XMS_ITS | Clinical Summary ---
Author Organization [facility] Address [address] [facility] [address] Phone Care Team Providers Care Sas Bi Developer Name Role Phone Unavailable Primary Care Provider Unavailabl e Social History Tobacco Use Types Packs/Day Years Used Date Smoking Tobacco: Never Assessed Comments Unknown Sex and Gender Information Value Date Recorded Sex Assigned at Not on file Legal Sex Female 2:30 PM ALMOND BLANCHER HAND Gender Identity Not on file Sexual Orientation Not on file Plan of Treatment Health Maintenance Due Date Last Done Comments Hepatitis C Virus (HCV) Screening 1960 TdaP Immunization 1960 Cologuard 02/10/2004 Colonoscopy 02/10/2004 Colorectal Cancer Screening 02/10/2004 Immunochemical Fecal Occult Blood 02/10/2004 Pneumococcal Immunization (5 0+ years) (1 of 1 - PCV) 2009 Zoster Immunization (1 of 2) 2009 Influenza Immunization (#1) 2025 SARS-COV-2 Immunization ( season) 2025 12/07/2020, 11/16/2020 Respiratory Syncytial Virus (RSV) Immunization (Adult) (1 - 1-dose 75+ series) 2034 Hepatitis B Immunization Aged Out No longer eligible based on patient's age to complete this topic Human Papillomavirus (HPV) Immunization Aged Out No longer eligible b ased on patient's age to complete this topic Meningococcal Immunization (ACWY) Aged Out No longer eligible b ased on patient's age to complete this topic Rotavirus Immunization Aged Out No lo nger eligible based on patient's age to complete this topic
--- OUTSIDE RECORDS SUMMARY | 2025-07-25 01:10 | XMS_ITS ---
Author Organization [facility] Address [address] [place] [address] Care Team Providers Care Slag Expander Name Role Phone Compa Sam MD Unavailable [phone] Compa Sam MD Primary Care Provider [phone] Quintin Hope MD Unavailable [phone] Transplant Episode Kidney Candidate [facility] ([place], [place]) - [facility] Center waitlisted on 05/10/2023 Marked as Active on 03/13/2025 Kidney CoordinatorLilian Sky RN Phone: N/A Fax: N/A Email: N/A Scores Score Value Updated Exceptions/Reas ons CPRA Not available EPTS (Calc) 91 07/25/2025 [place] Organ Diagnosis 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 Care Team Name Role Phone Fax Email Lilian Sky RN Kidney Coordinator N/A N/A N/A Reva Edmond MD Transplant Quality Improvement Engineer [phone] N/A Quintin Hope MD Referring Physician [phone] N/A Joyce Dobson Aquatics Lifeguard N/A N/A N/A Events Pre-Transplant Referred: 06/14/2022 Evaluation began: 07/12/2022 Committee: 04/13/2023 UNOS qualified: 06/16/2022 Center waitlisted: 05/10/2023 Dialysis History Dialysis History Start End Type Comments Center 12/26/2023 Peritoneal Dialysis [facility] 06/16/2022 12/25/2023 [facility] Soraya,M,W,F; PD tra ining starts 10/25 [facility] Dialysis Center Information Center Phone Fax Address [facility] [phone] [address] [address]
--- OUTSIDE RECORDS SUMMARY | 2025-07-25 01:11 | XMS_ITS | Encounter Summary ---
Author Organization [facility] Health Address [address] [facility] [place] [address] Care Team Providers Care Senior Java Web Developer Name Role Phone Compa Sam MD Unavailable [phone] Compa Sam MD Primary Care Provider [phone] Quintin Hope MD Unavailable [phone] Encounter Details Date Type Department Care Team (Late st Contact Info) Description 11/05/2024 Lab Requisition [facility] [address] [place] [phone] Quintin Snow MD [facility] OF [place] [address] Social History Tobacco Use Types Packs/Day Years [...] on file Legal Sex Female 8:35 AM RETORT FIREMAN Gender Identity Not on file Sexual Orientation [...] st Contact Info) Description 09/22/2025 10:15 AM RETORT FIREMAN Appointment [facility] [address] [place] [address] Quintin Snow MD [address] [facility] DIV OF [facility] [place] [address] 09/22/2025 11:00 AM RETORT FIREMAN Appointment [facility] [address] [place] [address] Quintin Snow MD [address] [facility] [place] [address] documented as of this encounter Goals Goal Patient Goal Type Associated Problems Recent Progress Patient-Stated? Author Blood Pressure < 140/90 Blood Pressure 126/81(2024 11:19 AM CDT) Lilian Tan veneer clipper Management General On track( 12:38 PM CDT) [...] HLA SPECIMEN Routine 10/31/2024 2:5 4 PM RETORT FIREMAN documented in this encounter Results * HOLD HLA SPECIMEN (10/31/2024 2:54 PM RETORT FIREMAN) Hold HLA Specimen 11/05/2024 4:01 PM RETORT FIREMAN [facility] ([facility]) Comment:The Hold HLA specime n has been received into the lab and will be held for 5 years at 4 degrees. Blood BLOOD SPECIMEN / Unknown 10/31/2024 2:54 PM RETORT FIREMAN 11/05/2024 2:54 PM RETORT FIREMAN Quintin Snow MD LAB - BLOOD BANK ORDERABLES F inal Result [facility] ([facility]) [address] [place], [place] [id number] [place] [address] documented in this encounter Visit Diagnoses Not on filedocumented in this encounter Care Teams Senior Java Web Developer Relationship Specialty Start Date End Date Compa Sam MD [address] [place] [address] PCP - General 12/28/22 Compa Sam MD [address] [facility] [address] [place] [address] Family Medicine 09/29/22 Quintin Hope MD [address] [facility] [address] [place] [address] Nephrology 04/10/24 documented as of this encounter
--- OUTSIDE RECORDS SUMMARY | 2025-07-25 01:11 | XMS_ITS | Encounter Summary ---
Author Organization [facility] Address [address] [facility] [place] [address] Care Team Providers Care General Pediatrician Name Role Phone Debbie Middleton Primary Care Provider + [phone] Compa Sam MD Primary Care Provider [phone] Debbie Middleton Primary Care Provider [phone] Compa Sam MD Unavailable [phone] Debbie Middleton Primary Care Provider [phone] Compa Sam MD Primary Care Provider [phone] Quintin Hope MD Unavailable [phone] Encounter Details Date Type Department Care Team (Late st Contact Info) Description 04/22/2022 Telephone [facility] - [address] [place] [phone] Samara Auguste, RN Social History Tobacco Use [...] on file Legal Sex Female 8:35 AM AGRICULTURAL ECONOMICS TEACHER Gender Identity Not on file Sexual Orientation Not on file COVID-19 Exposure Response Date Recorded In the last 10 days, have yo u been in contact with someone who was confirmed or suspected to have Coronavirus/COVID-19? No / Unsure 04/21/2022 3:16 PM CDT documented as of this encounter Functional Status * Functional and Cognitive Status Question Answer Date of Assessment Author Is person deaf or have timothy us hearing difficulty? No 04/22/2022 7:59 PM CDT Sheila Ellis R N Is person blind or have seri ous difficulty seeing? No 04/22/2022 7:59 PM CDT Sheila Ellis R N Does person have serious dif ficulty walking/climbing stairs? No 04/22/2022 7:59 PM CDT Sheila Ellis RN Does person have difficulty dressing/bathing? No 04/22/2022 7:59 PM CDT Sheila Ellis R N Does person have difficulty doing errands alone? No 04/22/2022 7:59 PM CDT Sheila Ellis R N Does person have difficulty concentrating/remembering/making decisions? No 04/22/2022 7:59 PM CDT Sheila Ellis R N * Question Answer Date of Assessment Author Q1: How often do you have a drink containing alcohol? 2-4 times a month 04/22/2022 7:58 PM CDT Sheila Ellis R N Q2: How many drinks containing alcohol do you have on a typical day when you are drinking? 1 or 2 04/22/2022 7:58 PM NIKITAT Sheila Ellis RN Q3: How often do you have six or more drinks on one occasion? Never 04/22/2022 7:58 PM CDT Sheila Ellis R N * AUDIT-C Score Answer Date of Assessment Author 2 [...] Abigail Covarrubias RN documented in this encounter Miscellaneous Notes [...] here at this time. Please advise. Dr. Sotoamyor notified.Please return call @ [phone]. documented in this encounter Plan of Treatment Upcoming Encounters Date Type Department Care Team (Late st Contact Info) Description 09/22/2025 10:15 AM AGRICULTURAL ECONOMICS TEACHER Appointment [facility] [address] [place] [address] Quintin Snow MD [address] [place] [address] OF [facility] [place] [address] 09/22/2025 11:00 AM AGRICULTURAL ECONOMICS TEACHER Appointment [place] [address] [place] [phone] Quintin Snow MD [facility] OF [place]BD [place] [address] documented as of this encounter Goals Goal [...] documented as of this encounter Care Teams General Pediatrician Relationship Specialty Start Date End Date Debbie Middleton APRN-CNP PCP - General 10/06/21 08/29/22 Compa Sam MD [address] [facility] [address] [phone] PCP - General Family Medicine 08/30/22 09/25/22 Debbie Middleton APRN-CNP PCP - General 09/26/22 09/28/22 Debbie Middleton APRN-CNP PCP - General 10/11/22 12/27/22 Compa Sam MD [address] [place] [address] PCP - General 12/28/22 Compa Sam MD [address] [facility] [address] [place] [address] Family Medicine 09/29/22 Quintin Hope MD 1034 [facility] [address] [place] [address] Nephrology 04/10/24 documented as of this encounter
--- OUTSIDE RECORDS SUMMARY | 2025-07-25 01:11 | XMS_ITS | Encounter Summary ---
Author Organization [facility] Address [address] [facility] [place] [address] Care Team Providers Care Six Pack Packer Name Role Phone Debbie Middleton Primary Care Provider + [phone] Compa Sam MD Primary Care Provider + [phone] Debbie Middleton Primary Care Provider [phone] Compa Sam MD Unavailable [phone] Debbie Middleton Primary Care Provider [phone] Compa Sam MD Primary Care Provider [phone] Quintin Hope MD Unavailable [phone] Reason for Visit * Reason Comments Kidney Transplant Follow-up Encounter Details Date Type Department Care Team (Late st Contact Info) Description 05/09/2022 Telephone [facility] - [address] [address] Samara Auguste, RN Kidney Transplant [...] on file Legal Sex Female 8:35 AM INFORMATICA MDM DEVELOPER Gender Identity Not on file Sexual [...] st Contact Info) Description 09/22/2025 10:15 AM INFORMATICA MDM DEVELOPER Appointment [address] [phone] Quintin Snow MD [address] [place] [address] [place] [address] 09/22/2025 11:00 AM INFORMATICA MDM DEVELOPER Appointment [address] [phone] Quintin Snow MD [address] [place] [address] [place], [place] [phone] documented as of this encounter Goals Goal [...] documented as of this encounter Care Teams Six Pack Packer Relationship Specialty Start Date End Date Debbie Middleton APRN-ALODIZE MACHINE OPERATOR PCP - General 10/06/21 08/29/22 Compa Sam MD [address] [place] [phone] PCP - General Family Medicine 08/30/22 09/25/22 Debbie Middleton APRN-ALODIZE MACHINE OPERATOR PCP - General 09/26/22 09/28/22 Debbie Middleton APRN-ALODIZE MACHINE OPERATOR PCP - General 10/11/22 12/27/22 Compa Sam MD [address] [place] [address] PCP - General 12/28/22 Compa Sam MD [address] [place] [address] Family Medicine 09/29/22 Quintin Hope MD [address] [facility], [facility] [address] [place] [address] Nephrology 04/10/24 documented as of this encounter
--- OUTSIDE RECORDS SUMMARY | 2025-07-25 01:11 | XMS_ITS | Encounter Summary ---
Author Organization [facility] Health Address [address] [place] [address] Care Team Providers Care Rug Backing Stenciler Name Role Phone Compa Sam MD Unavailable [phone] Compa Sam MD Primary Care Provider [phone] Quintin Hope MD Unavailable [phone] Encounter Details Date Type Department Care Team (Late st Contact Info) Description 10/18/2024 Lab Requisition [facility] [address] [place] [phone] Quintin Snow MD [facility] OF ABD [place] [address] Social History Tobacco Use Types Packs/Day Years [...] on file Legal Sex Female 8:35 AM CHIEF SUPPLY CHAIN OFFICER Gender Identity Not on file Sexual Orientation [...] st Contact Info) Description 09/22/2025 10:15 AM CHIEF SUPPLY CHAIN OFFICER Appointment [facility] [address] [place] [address] Quintin Snow MD [address] [facility] DIV OF [facility] [place] [address] 09/22/2025 11:00 AM CHIEF SUPPLY CHAIN OFFICER Appointment [facility] [address] [place] [address] Quintni Snow MD [address] [facility] DIV OF [facility] [place] [address] documented as of this encounter Goals Goal Patient Goal Type Associated Problems Recent Progress Patient-Stated? Author Blood Pressure < 140/90 Blood Pressure 126/81(2024 11:19 AM CDT) Lilian Tan cloth packer Management General On track( 12:38 PM CDT) [...] HLA SPECIMEN Routine 10/10/2024 1:3 8 PM CHIEF SUPPLY CHAIN OFFICER documented in this encounter Results * HOLD HLA SPECIMEN (10/10/2024 1:38 PM CHIEF SUPPLY CHAIN OFFICER) Hold HLA Specimen 10/18/2024 3:00 PM CHIEF SUPPLY CHAIN OFFICER [facility] ([facility]) Comment:The Hold HLA specime n has been received into the lab and will be held for 5 years at 4 degrees. Blood BLOOD SPECIMEN / Unknown 10/10/2024 1:38 PM CHIEF SUPPLY CHAIN OFFICER 10/18/2024 1:38 PM CHIEF SUPPLY CHAIN OFFICER Quintin Snow MD LAB - BLOOD BANK ORDERABLES F inal Result [facility] ([facility]) [address] [place], [place] [address] [place] [address] documented in this encounter Visit Diagnoses Not on filedocumented in this encounter Care Teams Rug Backing Stenciler Relationship Specialty Start Date End Date Compa Sam MD [address] [place] [address] PCP - General 12/28/22 Compa Sam MD [address] [facility] [address] [place] [address] Family Medicine 09/29/22 Quintin Hope MD 1034 [facility] [address] [place] [address] Nephrology 04/10/24 documented as of this encounter
--- OUTSIDE RECORDS SUMMARY | 2025-07-25 01:11 | XMS_ITS | Encounter Summary ---
Author Organization [facility] Address [address] [place] [address] Care Team Providers Care Lime Sludge Kiln Operator Name Role Phone Debbie Middleton Primary Care Provider [phone] Compa Sam MD Primary Care Provider + [phone] Debbie Middleton Primary Care Provider [phone] Compa aSm MD Unavailable [phone] Debbie Middleton Primary Care Provider [phone] Compa Sam MD Primary Care Provider [phone] Quintin Hope MD Unavailable [phone] Encounter Details Date Type Department Care Team (Late st Contact Info) Description 02/02/2022 Lab Requisition [facility] [address] [place] [address] Reva Edmond MD [address] [facility] [place] [address] Other penitentiary (current) drug therapy Social History Tobacco Use [...] on file Legal Sex Female 8:35 AM PURIFICATION OPERATOR Gender Identity Not on file Sexual [...] st Contact Info) Description 09/22/2025 10:15 AM PURIFICATION OPERATOR Appointment [address] [place] [phone] Quintin Snow MD [facility] [place] [address] 09/22/2025 11:00 AM PURIFICATION OPERATOR Appointment [address] [place] [address] Quintin Snow MD [address] [facility] [place] [address] documented as of this encounter Goals Goal [...] ([facility]) Routine 01/27/2022 7:57 AM CDT Other penitentiary (current) drug therapy documented in this encounter Results * ELECTRON MICROSCOPY ([facility]) (01/27/2022 7:57 AM CDT) Case Report Gynecologic Cytology Report Case: [id number] Authorizing Provider: Reva Edmond MD Collected: 01/27/2022 07:57 AM Ordering Location: [facility] Received: 02/02/2022 10:09 AM First Screen: Zaid Umaña Specimen: EM RENAL - U, Kidney Txp Biopsy, One piece approx. 1 mm long. 02/07/2022 3:33 PM CDT [facility] PATH[facility]Y LAB Electron Microscopy Technical Summary # of Block(s) cut: 2 # of Glomeruli found: 1 # of Glomeruli photographed: 1 02/07/2022 3:33 PM CDT [facility] LAB Embedded Images - EM 02/07/2022 3:33 PM CDT [facility] LAB Pathology/Cytolo gy BIOPSY OF TRANSPLANTED KIDNEY USING ULTRASOUND GUIDANCE / Unknown 01/27/2022 7:57 AM CDT 02/02/2022 10:09 AM CDT us Reva Edmond MD LAB - PATHOLOGY/CYTOLOGY ORD ERABLES Final Result [facility] LAB [address] [place] [address], [facility] [phone] documented in this encounter Visit Diagnoses Diagnosis Other penitentiary (current) drug therapy documented in this encounter Additional Health Concerns Infection Onset Date Last Indicated Resolved Time COVID-19 Under Investigation 07/15/2022 07/15/2022 07/26/2022 4:33 AM CDT documented as of this encounter Care Teams Lime Sludge Kiln Operator Relationship Specialty Start Date End Date Debbie Middleton APRN-CNP PCP - General 10/06/21 08/29/22 Compa Sam MD [address] [phone] PCP - General Family Medicine 08/30/22 09/25/22 Debbie Middleton APRN-CNP PCP - General 09/26/22 09/28/22 Debbie Middleton APRN-CNP PCP - General 10/11/22 12/27/22 Compa Sam MD [address] [place] [address] PCP - General 12/28/22 Compa Sam MD [address] [place] [address] Family Medicine 09/29/22 Quintin Hope MD 1034 [facility] [address] [place] [address] Nephrology 04/10/24 documented as of this encounter
--- OUTSIDE RECORDS SUMMARY | 2025-07-25 01:11 | XMS_ITS | Encounter Summary ---
Author Organization [facility] Address [address] [facility] [place] [place] [address] Care Team Providers Care Truck Sales Manager Name Role Phone Compa Sam MD Unavailable [phone] Compa Sam MD Primary Care Provider [phone] Quintin Hope MD Unavailable [phone] Encounter Details Date Type Department Care Team (Late st Contact Info) Description 12/04/2024 Lab Requisition [facility] LAB [address] [place] [phone] Quintin Snow MD [facility]1 [facility] OF [place] [address] Social History Tobacco Use Types Packs/Day Years [...] on file Legal Sex Female 8:35 AM MACHINE GUN MECHANIC Gender Identity Not on file Sexual Orientation [...] st Contact Info) Description 09/22/2025 10:15 AM MACHINE GUN MECHANIC Appointment [facility] [address] [place] [address] Quintin Snow MD [address] [facility] OF [facility] [place] [address] 09/22/2025 11:00 AM MACHINE GUN MECHANIC Appointment [facility] [address] [place] [address] Quintin Snow MD [address] [facility] OF [facility] [place] [address] documented as of this encounter Goals Goal Patient Goal Type Associated Problems Recent Progress Patient-Stated? Author Blood Pressure < 140/90 Blood Pressure 126/81(2024 11:19 AM CDT) Lilian Tan home energy consultant Management General On track( 12:38 PM CDT) [...] HLA SPECIMEN Routine 11/29/2024 10: 43 AM MACHINE GUN MECHANIC documented in this encounter Results * HOLD HLA SPECIMEN (11/29/2024 10:43 AM MACHINE GUN MECHANIC) Hold HLA Specimen 12/04/2024 12:02 PM CDT [facility] (NILSA) Comment:The Hold HLA specime n has been received into the lab and will be held for 5 years at 4 degrees. Blood BLOOD SPECIMEN / Unknown 11/29/2024 10:43 AM MACHINE GUN MECHANIC 12/04/2024 10:43 AM CDT us Quintin Snow MD LAB - BLOOD BANK ORDERABLES F inal Result [facility] ([facility] [address] [place], [place] [id number] [place] [address] documented in this encounter Visit Diagnoses Not on filedocumented in this encounter Care Teams Truck Sales Manager Relationship Specialty Start Date End Date Compa Sam MD [address] [place] [address] PCP - General 12/28/22 Compa Sam MD 68[address] [facility] [address] [place] [address] Family Medicine 09/29/22 Quintin Hope MD 1034 [facility] [address] [place] [address] Nephrology 04/10/24 documented as of this encounter
--- OUTSIDE RECORDS SUMMARY | 2025-07-25 01:11 | XMS_ITS | Encounter Summary ---
Author Organization [facility] Health Address [address] [place] [address] Care Team Providers Care Pack Worker Name Role Phone Compa Sam MD Unavailable [phone] Compa Sam MD Primary Care Provider [phone] Quintin Hope MD Unavailable [phone] Encounter Details Date Type Department Care Team (Late st Contact Info) Description 04/02/2025 Lab Requisition [facility] LAB [address] [place] [phone] Quintin Snow MD [facility] OF [place]BD [place] [address] Social History Tobacco Use Types Packs/Day Years [...] Date Recorded PHQ2 TOTAL SCORE 0 12/14/2021 [facility] [place] of Occupat ional Health - Occupational Stress [...] any time in the past 12 m [facility], were you homeless or living in a halfway (including now)? No 02/19/2025 Comments No Sex and Gender Information Value Date Recorded Sex Assigned at Not on file Legal Sex Female 8:35 AM PARTS DELIVERY DRIVER Gender Identity Not on file Sexual Orientation Not on file documented as of this encounter Functional Status * Is person deaf or have serious hearing difficulty? Answer Date of Assessment Author No 02/17/2025 12:08 PM Dipti Caba RN * Is person blind or have serious difficulty seeing? Answer Date of Assessment Author Yes 02/17/2025 12:08 PM Dipti Caba RN * Does person have serious difficulty walking/climbing stairs? Answer Date of Assessment Author No 02/17/2025 12:08 PM Dipti Caba RN * Does person have difficulty dressing/bathing? Answer Date of Assessment Author No 02/17/2025 12:08 PM NIKITAT Dipti Emmanuel RN * Does person have difficulty doing errands alone? Answer Date of Assessment Author Yes 02/17/2025 12:08 PM Dipti Caba RN documented as of this encounter Mental Status * Does person have difficulty concentrating/remembering/making decisions? Answer Entry Date Author Yes 02/17/2025 12:08 PM Dipti Caba RN documented in this encounter Plan of Treatment Upcoming Encounters Date Type Department Care Team (Late st Contact Info) Description 09/22/2025 10:15 AM PARTS DELIVERY DRIVER Appointment [address] [address] Quintin Snow MD [address] [place] [address] [place] [address] 09/22/2025 11:00 AM PARTS DELIVERY DRIVER Appointment [address] [place] [address] Quintin Snow MD [address] [place] [address] [place] [address] documented as of this encounter Goals Goal Patient Goal Type Associated Problems Recent Progress Patient-Stated? Author Blood Pressure < 140/90 Blood Pressure 126/81(2024 11:19 AM CDT) No Lilian Sky RN Medication Management General On track( 12:38 PM CDT) No Tabitha Vizcarra, ALYSON Note: Expected end date: ONGOING Interventions: Take [...] Associated Diagnosis Comments HOLD HLA SPECIMEN Routine 03/27/2025 2:1 7 PM CDT documented in this encounter Results * HOLD HLA SPECIMEN (03/27/2025 2:17 PM CDT) Hold HLA Specimen 04/02/2025 3:31 PM CDT [facility] ([facility]) Comment:The Hold HLA specime n has been received into the lab and will be held for 5 years at 4 degrees. Blood BLOOD SPECIMEN / Unknown 03/27/2025 2:17 PM CDT 04/02/2025 2:17 PM CDT Quintin Snow MD LAB - BLOOD BANK ORDERABLES F inal Result [facility] ([facility]) [address] documented in this encounter Visit Diagnoses Not on filedocumented in this encounter Care Teams Pack Worker Relationship Specialty Start Date End Date Compa Sam MD [address] [place] [address] PCP - General 12/28/22 Compa Sam MD [address] [place] [address] Family Medicine 09/29/22 Quintin Hope MD 1034 [facility] [address] [place] [address] Nephrology 04/10/24 documented as of this encounter
--- OUTSIDE RECORDS SUMMARY | 2025-07-25 01:11 | XMS_ITS | Clinical Summary ---
Author Organization [facility] [address] Address [address] [place] [address] Care Team Providers Care Customer Engagement Specialist Name Role Phone Compa Sam MD Primary Care Provider [phone] Allergies Active Allergy Reactions Criticality Noted Date Comments Amoxicillin Hives,Rash Medium 02/17/2023 Amoxicillin-Pot Clavulanate Rash Medium 01/13/20 Doxycycline Hives,Rash Medium 11/30/2022 Fentanyl Other (See comments),Anxiety Low 01/12/2021 Hysteria Levofloxacin Nausea And Vomiting,Nausea & Vomiting,Nausea only Low 01/12/2021 Potassium Clavulanate Rash Medium 02/17/2023 Medications allopurinoL (ZYLOPRIM) 100 mg tablet Take 1 tablet (100 mg total) by mouth daily Active aspirin 81 mg enteric coated tablet Take 1 tablet (81 mg total) by mouth daily Active cholecalciferol (VITAMIN D-3) 2000 unit capsule Take 1 capsule (2,000 Units total) by mouth daily Active cinacalcet (SENSIPAR) 30 mg tablet Take 1 tablet (30 mg total) by mouth Active lansoprazole (PREVACID) 30 mg capsule Take 1 capsule (30 mg total) by mouth 2 (two) times a day Active ondansetron ODT (ZOFRAN-ODT) 4 mg disintegrating tablet Take 1 tablet (4 mg total) by mouth 2 (two) times a day as needed Active rosuvastatin (CRESTOR) 20 mg tablet Take 1 tablet (20 mg total) by mouth daily 10/19/2 021 Active albuterol HFA (PROVENTIL HFA,VENTOLIN HFA,PROAIR HFA) 90 mcg/actuation inhalerIndication s:Acute cough,RSV (respiratory syncytial virus infection),Rhinov irus Inhale 2 puffs every 6 (six) hours as needed for wheezing or shortness of breath 1 each Active benzonatate (TESSALON) 200 mg capsuleIndication s:Acute cough,RSV (respiratory syncytial virus infection),Rhinov irus Take 1 capsule (200 mg total) by mouth 3 (three) times a day as needed for cough 30 capsule 022 Active bumetanide (BUMEX) 2 mg tablet Take 1 tablet (2 mg total) by mouth 2 (two) times a day Active calcitRIOL (ROCALTROL) 0.25 mcg capsule Take 1 capsule (0.25 mcg total) by mouth daily Active cyclobenzaprine (FLEXERIL) 5 mg tablet TAKE 1 TABLET BY MOUTH THREE TIMES DAILY NEEDED FOR LEG PAIN Active vitamin B complex-vitamin C-folic acid (Rossana-Alexis) 0.8 mg tablet Active gentamicin (GARAMYCIN) 0.1 % cream APPLY TO EXIT SITE ONCE DAILY Active doxazosin (CARDURA) 4 mg tablet Take 1 tablet (4 mg total) by mouth 2 (two) times a day 024 Active acetaminophen (TYLENOL) 325 mg tablet Take 2 tablets (650 mg total) by mouth every 6 (six) hours as needed 023 Active vitamin B complex-vitamin C-folic acid (NEPHRO-ALEXIS) 0.8 mg tablet Take 1 tablet by mouth daily 023 Active blood-glucose sensor (FreeStyle Rubia 3 Plus Sensor) deviceIndications :Type 2 diabetes mellitus with hyperglycemia, without long-term current use of insulin (HCC) Change sensor every 15 days Dx: E11.65 6 each 3 024 Active dilTIAZem CD/XR/XT (dilTIAZem CD) 120 mg 24 hr capsule Take 1 capsule (120 mg total) by mouth daily 30 capsule 11 025 2025 Active insulin lispro (HumaLOG) 100 unit/mL pen for injection Take 6 units before meals, for sugars over 200, take 8 units, for sugars over 300, take 10 units 15 mL 1 025 Active Additional Information Patient taking differently: As needed, Take 6 units before meals, for sugars over 200, take 8 units, for sugars over 300, take 10 units, Reported on 06/10/2025 pen needle, diabetic (Pen Needle) 31 gauge x 5/16 needle Use to inject 1-4 times daily as directed 100 each 11 025 Active insulin glargine (LANTUS) 100 unit/mL (3 mL) pen for injection Inject 8 units once daily when you have steroid injections 15 mL 025 Active Additional Information Patient taking differently: As needed, Inject 8 units once daily when you have steroid injections, Reported on 06/10/2025 metoprolol XL (TOPROL-XL) 50 mg extended release tablet Take 1 tablet (50 mg total) by mouth daily 025 Active insulin syringe-needle U-100 0.5 mL 31 gauge x 5/16 syringe Use to inject NPH insulin at bedtime 100 each 11 025 Active insulin NPH (HumuLIN N) 100 unit/mL vial for injectionIndicati ons:Type 2 diabetes mellitus with hyperglycemia, without long-term current use of insulin (HCC) Take 4 units of NPH at night before starting peritoneal dialysis 10 mL 3 025 Active Januvia 25 mg tabletIndications :Type 2 diabetes mellitus with hyperglycemia, without long-term current use of insulin (HCC) Take 1 tablet by mouth once daily 90 tablet 025 Active Januvia 25 mg tablet Take 1 tablet (25 mg total) by mouth daily 90 tablet 3 024 2024 Discontinued Active Problems Problem Noted Date Diagnosed Date [...] Encounters Date Type Department Care Team Description 06/10/2025 12:00 PM CDT [facility] [address] [address] Ally Barber MD Type 2 diabetes mellitus with hyperglycemia, without long-term current use of insulin (HCC) (Primary Dx) 06/10/2025 Telephone [facility] [address] [address] Ally Barber MD Clarification on Insulin 06/09/2025 Telephone [facility] Diabetes and Endocrinology [address] [place] [address] Ally Barber MD Rubia download 06/09/2025 Telephone [facility] [address] [address] Letitia Astorga PA Med Management from Last 3 Months Social History Tobacco [...] Sign Reading Time Taken Comments Blood Pressure 92/60 06/10/2025 12:05 PM CDT Pulse 70 06/10/2025 12:05 PM CDT Temperature 36.9 C (98.4 F) 08/08/2022 6:56 PM OCCUPATIONAL THERAPIST'S ASSISTANT Respiratory Rate 14 06/10/2025 12:05 PM CDT Oxygen Saturation 98% 08/08/2022 6:56 PM OCCUPATIONAL THERAPIST'S ASSISTANT Inhaled Oxygen Concentration - - Weight 77.7 kg (171 lb 6.4 oz) 06/10/2025 12:05 PM CDT Height 162.6 cm (5' 4) 06/10/2025 12:05 PM CDT Body Mass Index 29.42 06/10/2025 12:05 PM CDT Plan of Treatment Health Maintenance Due Date Last Done Comments Breast Cancer Screening-Mammogram 1959 Colon Cancer Screening-Colonoscopy 1959 Depression Screening 1959 Fall Risk Assessment 1959 Hepatitis C Screening 1959 Hepatitis B Screening 1977 Osteoporosis Screening-Bone Density Scan 02/03/2024 02/02/2022, 02/02/2022 Well Visit 65+ 02/10/2024 Covid-19 Vaccine (2024-2 6 season) 2025 06/26/2023, 03/06/2023, 06/23/2022, Additional history exists Influenza Vaccine (#1) 2025 , 06/23/2022, 07/16/2021, Additional history exists Dilated Eye Exam 10/14/2025 10/14/2024 Hemoglobin A1C 12/08/2025 06/10/2025, 01/24, 12/24/2024, Additional history exists Lipid Panel 12/24/2025 12/24/2024, 11/24, 04/10/2023, Additional history exists eGFR 12/24/2025 12/24/2024 Foot Exam 02/13/2026 02/13/2025 Pneumococcal vaccine 65+ (3 of 3 - PCV20 or PCV21) 12/14/2026 12/14/2021, 09/21/2021 DTaP/Tdap/Td Vaccine (2 - Td or Tdap) 02/25/2032 02/24/2022 Zoster Vaccine Completed 06/30/2022, 04/01/2022 Albumin Creatinine Ratio, Urine Discontinued Procedures Procedure Name Priority Date/Time Associated Diagnosis Comments POCT GLUCOSE Routine 06/10/2025 12:05 PM CDT Type 2 diabetes mellitus with hyperglycemia, without long-term current use of insulin (HCC) POCT HEMOGLOBIN A1C Routine 06/10/2025 1 2:05 PM CDT Type 2 diabetes mellitus with hyperglycemia, without long-term current use of insulin (HCC) HM CREATININE Routine 12/24/2024 4:08 PM CDT DIABETES EYE EXAM Routine 10/14/2024 8:28 AM OCCUPATIONAL THERAPIST'S ASSISTANT from Last 3 Months or Most Recently Relevant to Health Maintenance Results * (ABNORMAL) POCT hemoglobin A1c (06/10/2025 12:05 PM CDT) Hemoglobin A1C, POC 7.7(A) 4.0 - 5.6 % Comment:None Capillary blood 06/10/2025 1 2:05 PM CDT Result Rambo Barber MD POINT OF CARE TEST ORDERABLES Fi nal Result * (ABNORMAL) POCT glucose (06/10/2025 12:05 PM CDT) Glucose Blood, POC 205 Normal Fasting 70 - 100, Random <200 mg/dL Comment:None Blood 06/10/2025 12:0 5 PM CDT Result Rambo Barber MD POINT OF CARE TEST ORDERABLES Fi nal Result * (ABNORMAL) HM CREATININE (12/24/2024 4:08 PM CDT) SCRIBED Creatinine 8.5(A) 0.56 - 0.96 mg/dl EXTERNAL LAB SCRIBED eGFR 5(A) >=90 EXTERNAL LAB SCRIBED eGFR 5(A) >=90 EXTERNAL LAB us Historical Provider HEALTH MAINTENANCE Edited Result - Final EXTERNAL LAB * DIABETES EYE EXAM (10/14/2024 8:28 AM OCCUPATIONAL THERAPIST'S ASSISTANT) us Historical Provider HEALTH MAINTENANCE Final Result from Last 3 Months or Most Recently Relevant to Health Maintenance Insurance [facility] Member Subscriber Plan / Payer (Ef fective 2015-Present) Name:Brandy Casey Relation to Subscriber:Spouse Name:Vitaly Casey Date of :1959 (Home) Address: [place] [address] Payer ID:[id number] (NAIC) Group ID:[id number] Type:[employer] Address: [facility] [id number] Care Teams Customer Engagement Specialist Relationship Specialty Start Date End Date Compa Sam MD [address] [place] [address] PCP - General Family Medicine 12/04/23
--- OUTSIDE RECORDS SUMMARY | 2025-07-25 01:11 | XMS_ITS | Encounter Summary ---
Author Organization [facility] Address [address] [address] Care Team Providers Care Telecommunication Tower Technician Name Role Phone Debbie Middleton Primary Care Provider [phone] Compa Sam MD Primary Care Provider [phone] Debbie Middleton Primary Care Provider [phone] Compa Sam MD Unavailable [phone] Debbie Middleton Primary Care Provider [phone] Compa Sam MD Primary Care Provider [phone] Quintin Hope MD Unavailable [phone] Encounter Details Date Type Department Care Team (Late st Contact Info) Description 04/27/2022 Lab Requisition [facility] Pathology Lab [address] [place] [address] Mary Alan MD [address] [place], [place] [id number] Chronic kidney disease, stage 3b; Kidney transplant [...] on file Legal Sex Female 8:35 AM CONTINUING EDUCATION SPECIALIST Gender Identity Not on file Sexual [...] 7:59 PM NIKITAT Soraya Ellis RN documented as of this encounter Mental Status * Does person have difficulty concentrating/remembering/making decisions? Answer Entry Date Author No 04/22/2022 7:59 PM Soraya Dangelo RN documented in this encounter Plan of Treatment Upcoming Encounters Date Type Department Care Team (Late st Contact Info) Description 09/22/2025 10:15 AM CONTINUING EDUCATION SPECIALIST Appointment [address] [address] Quintin Snow MD [address] [place] [address] OF [place] [address] 09/22/2025 11:00 AM CONTINUING EDUCATION SPECIALIST Appointment [facility] [address] [place] [address] Quintin Snow MD [address] [facility] [place] [address] documented as of this encounter Goals Goal [...] CDT) Case Report Gynecologic Cytology Report Case: [id number] Authorizing Provider: Mary Alan MD Collected: 04/26/2022 11:56 AM Ordering Location: [facility] Care Pathology Lab Received: 04/27/2022 11:44 AM First Screen: Zaid Umaña Specimen: EM RENAL - U, Kidney, Left, Thee pieces approx. 1.5 mm long@ 05/05/2022 3:24 PM CDT [facility] PATHOLOGY LAB Electron Microscopy Technical Summary # of Block(s) cut: 5 # of Glomeruli found: 1 # of Glomeruli photographed: 1 05/05/2022 3:24 PM CDT [facility] LAB Embedded Images - EM 05/05/2022 3:24 PM CDT [facility] Pathology/Cytolo gy (Kidney, Left) 04/26/2022 11:56 AM CDT 04/27/2022 11:44 AM CDT Mary lAan MD LAB - PATHOLOGY/CYTOLOGY ORDER JOSEPH Final Result [facility] [address] [place] [address], [facility] [phone] documented in this encounter Visit Diagnoses Diagnosis Chronic kidney disease, stage 3b (HCC) 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 Acute kidney failure, unspecified documented in this encounter Additional Health Concerns Infection Onset Date Last Indicated Resolved Time COVID-19 Under Investigation 07/15/2022 07/15/2022 07/26/2022 4:33 AM CDT documented as of this encounter Care Teams Telecommunication Tower Technician Relationship Specialty Start Date End Date Debbie Middleton APRN-CNP PCP - General 10/06/21 08/29/22 Compa Sam MD [address] [address] PCP - General Family Medicine 08/30/22 09/25/22 Debbie Middleton APRN-CNP PCP - General 09/26/22 09/28/22 Debbie Middleton APRN-CNP PCP - General 10/11/22 12/27/22 Compa Sam MD [address] [place] [address] PCP - General 12/28/22 Compa Sam MD [address] [place] [address] Family Medicine 09/29/22 Quintin Hope MD [facility] [address] [address] Nephrology 04/10/24 documented as of this encounter
--- OUTSIDE RECORDS SUMMARY | 2025-07-25 01:11 | XMS_ITS | Encounter Summary ---
Author Organization [facility] Health Address [address] [place] [address] Care Team Providers Care Licensing Worker Name Role Phone Compa Sam MD Unavailable [phone] Compa Sam MD Primary Care Provider [phone] Quintin Hope MD Unavailable [phone] Encounter Details Date Type Department Care Team (Late st Contact Info) Description 03/10/2025 Lab Requisition [facility] MAIN LAB [address] [place] [address] Quintin Snow MD [facility] OF [place] [address] Social History Tobacco Use Types Packs/Day Years [...] Date Recorded PHQ2 TOTAL SCORE 0 12/14/2021 [facility] [place] of Occupat ional Health - Occupational Stress [...] any time in the past 12 m [facility], were you homeless or living in a [facility] (including now)? No 02/19/2025 Comments No Sex and Gender Information Value Date Recorded Sex Assigned at Not on file Legal Sex Female 8:35 AM AERONAUTICAL PROJECT ENGINEER Gender Identity Not on file Sexual [...] st Contact Info) Description 09/22/2025 10:15 AM AERONAUTICAL PROJECT ENGINEER Appointment [address] [address] Quintin Snow MD [address] [place] [address] [place] [address] 09/22/2025 11:00 AM AERONAUTICAL PROJECT ENGINEER Appointment [place] [address] [place] [address] Quintin Snow MD [address] [place] [address] [place] [address] documented as of this encounter Goals Goal [...] Associated Diagnosis Comments HOLD HLA SPECIMEN Routine 03/06/2025 3:2 1 PM CDT documented in this encounter Results * HOLD HLA SPECIMEN (03/06/2025 3:21 PM CDT) Hold HLA Specimen 03/10/2025 4:31 PM CDT [facility] ([facility] Comment:The Hold HLA specime n has been received into the lab and will be held for 5 years at 4 degrees. Blood BLOOD SPECIMEN / Unknown 03/06/2025 3:21 PM CDT 03/10/2025 3:21 PM CDT Quintin Snow MD LAB - BLOOD BANK ORDERABLES F inal Result [facility] ([facility]) [address] documented in this encounter Visit Diagnoses Not on filedocumented in this encounter Care Teams Licensing Worker Relationship Specialty Start Date End Date Compa Sam MD [address] [place] [address] PCP - General 12/28/22 Compa Sam MD [address] [place] [address] Family Medicine 09/29/22 Quintin Hope MD [address] [facility] [address] [place] [address] Nephrology 04/10/24 documented as of this encounter
--- OUTSIDE RECORDS SUMMARY | 2025-07-25 01:11 | XMS_ITS | Encounter Summary ---
Author Organization [facility] Health Address [address] [place] [address] Care Team Providers Care Water Trainer Name Role Phone Compa Sam MD Unavailable [phone] Compa Sam MD Primary Care Provider [phone] Quintin Hope MD Unavailable [phone] Encounter Details Date Type Department Care Team (Late st Contact Info) Description 02/06/2024 Lab Requisition [facility] MAIN LAB [address] [place] [phone] Quintin Snow MD [facility] OF [place]BD [place] [address] Social History Tobacco Use Types Packs/Day Years [...] on file Legal Sex Female 8:35 AM CHERRY DIPPER Gender Identity Not on file Sexual [...] st Contact Info) Description 09/22/2025 10:15 AM CHERRY DIPPER Appointment [facility] [address] [place] [address] Quintin Snow MD [address] [facility] DIV OF [facility] [place] [address] 09/22/2025 11:00 AM CHERRY DIPPER Appointment [facility] [address] [place] [address] Quintin Snow MD [address] [facility] DIV OF [facility] [place] [address] documented as of this encounter Goals Goal Patient Goal Type Associated Problems Recent Progress Patient-Stated? Author Blood Pressure < 140/90 Blood Pressure 126/81(2024 11:19 AM CDT) Lilian Tan dynamometer repairer Management General On track( 12:38 PM CDT) [...] Hold HLA Specimen 02/06/2024 3:01 PM CDT [facility] ([facility]) Comment:The Hold HLA specime n has been received into the lab and will be held for 5 years at 4 degrees. Blood BLOOD SPECIMEN / Unknown 01/25/2024 1:43 PM CDT 02/06/2024 1:43 PM CDT Quintin Snow MD LAB - BLOOD BANK ORDERABLES F inal Result [facility] ([facility]) [address] [place] [address], [facility] documented in this encounter Visit Diagnoses Not on filedocumented in this encounter Care Teams Water Trainer Relationship Specialty Start Date End Date Compa Sam MD [address] [place] [address] PCP - General 12/28/22 Compa Sam MD [address] [facility] [address] [place] [address] Family Medicine 09/29/22 Quintin Hope MD 1034 [facility] [address] [place] [address] Nephrology 04/10/24 documented as of this encounter
--- OUTSIDE RECORDS SUMMARY | 2025-07-25 01:11 | XMS_ITS | Encounter Summary ---
Author Organization [facility] Health Address [address] [facility] [place] [address] Care Team Providers Care Director Of Sustainability Programs Name Role Phone Compa Sam MD Unavailable [phone] Compa Sam MD Primary Care Provider [phone] Quintin Hope MD Unavailable [phone] Encounter Details Date Type Department Care Team (Late st Contact Info) Description 09/15/2023 Lab Requisition [facility] MAIN LAB [address] [place] [phone] Quintin Snow MD [facility] OF ABD [place] [address] Social History Tobacco Use Types Packs/Day Years [...] on file Legal Sex Female 8:35 AM ORNAMENT MAKER HAND Gender Identity Not on file Sexual [...] Date Type Department Care Team (Late st [facility] Info) Description 09/22/2025 10:15 AM ORNAMENT MAKER HAND Appointment [facility] [address] [place] [address] Quintin Snow MD [address] [facility] DIV OF [facility] [place] [address] 09/22/2025 11:00 AM ORNAMENT MAKER HAND Appointment [facility] [address] [place] [address] Quintin Snow MD [address] [facility] DIV OF [facility] [place] [address] documented as of this encounter Goals Goal [...] HLA SPECIMEN Routine 09/08/2023 8:0 5 AM ORNAMENT MAKER HAND documented in this encounter Results * HOLD HLA SPECIMEN (09/08/2023 8:05 AM ORNAMENT MAKER HAND) Hold HLA Specimen 09/15/2023 9:30 AM ORNAMENT MAKER HAND [facility] ([employer]) Comment:The Hold HLA specime n has been received into the lab and will be held for 5 years at 4 degrees. Blood BLOOD SPECIMEN / Unknown 09/08/2023 8:05 AM ORNAMENT MAKER HAND 09/15/2023 8:05 AM ORNAMENT MAKER HAND Quintin Snow MD LAB - BLOOD BANK ORDERABLES F inal Result [facility] ([employer]) [address] [place] [address], [facility] documented in this encounter Visit Diagnoses Not on filedocumented in this encounter Care Teams Director Of Sustainability Programs Relationship Specialty Start Date End Date Compa Sam MD [address] [place] [address] PCP - General 12/28/22 Compa Sam MD [address] [place] [address] Family Medicine 09/29/22 Quintin Hope MD [address] [facility] [address] [place] [address] Nephrology 04/10/24 documented as of this encounter
--- OUTSIDE RECORDS SUMMARY | 2025-07-25 01:11 | XMS_ITS | Encounter Summary ---
Author Organization [facility] Address [address] [facility] [place] [address] Care Team Providers Care Cpc Coder Name Role Phone Debbie Middleton Primary Care Provider [phone] Compa Sam MD Primary Care Provider [phone] Debbie Middleton Primary Care Provider [phone] Compa Sam MD Unavailable [phone] Debbie Middleton Primary Care Provider [phone] Compa Sam MD Primary Care Provider [phone] Quintin Hope MD Unavailable [phone] Reason for Visit * Reason Onset Date Comments MEDICATION REFILL 05/26/2022 Encounter Details Date Type Department Care Team (Late st Contact Info) Description 05/26/2022 Refill [facility] - Nephrology [address] [place] [address], Third [place] [address] Abhi Jackson MD [address] [place] [address] OF NEPHROLOG[place] [address] MEDICATION REFILL Social History Tobacco [...] on file 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 Gender Identity Not on file Sexual Orientation [...] st Contact Info) Description 09/22/2025 10:15 AM OPERATOR MAINTAINER Appointment [place] [address] [place] [address] Quintin Sonw MD [address] [place] [address] OF [place]BD [place] [address] 09/22/2025 11:00 AM OPERATOR MAINTAINER Appointment [address] [phone] Quintin Snow MD [address] [facility] OF [place]BD [place] [address] documented as of this encounter Goals Goal [...] documented as of this encounter Care Teams Cpc Coder Relationship Specialty Start Date End Date Debbie Middleton APRN-CNP PCP - General 10/06/21 08/29/22 Compa Sam MD [address] [address] PCP - General Family Medicine 08/30/22 09/25/22 Debbie Middleton APRN-CNP PCP - General 09/26/22 09/28/22 Debbie Middleton APRN-CNP PCP - General 10/11/22 12/27/22 Compa Sam MD [address] [place] [address] PCP - General 12/28/22 Compa Sam MD [address] [facility] [address] [place] [address] Family Medicine 09/29/22 Quintin Hope MD [address] [place], [address] [place] [address] Nephrology 04/10/24 documented as of this encounter
--- OUTSIDE RECORDS SUMMARY | 2025-07-25 01:11 | XMS_ITS | Encounter Summary ---
Author Organization [facility] Health Address [address] [facility] [place] [address] Care Team Providers Care Snow Plow Tractor Operator Name Role Phone Compa Sam MD Unavailable [phone] Compa Sam MD Primary Care Provider [phone] Quintin Hope MD Unavailable [phone] Reason for Visit * Reason Comments Refill Request Encounter Details Date Type Department Care Team (Late st Contact Info) Description 05/25/2023 Refill [facility] - Nephrology [address] [place] [address], [place] [address] Reva Edmond MD [address] [place] [address] [facility] OF NEPHROLOGY [place], [place] [id number] Refill Request Social History Tobacco Use Types [...] on file 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 S [facility] [place] [address] 09/22/2025 11:00 AM INDUSTRIAL ELECTRICIAN Appointment [address] [address] Quintin Snow MD [address] [facility] [place] [address] documented as of this encounter Goals Goal [...] on filedocumented in this encounter Care Teams Snow Plow Tractor Operator Relationship Specialty Start Date End Date Compa Sam MD [address] [facility] [address] [place] [address] PCP - General 12/28/22 Compa Sam MD [address] [place] [address] Family Medicine 09/29/22 Quintin Hope MD [facility] [address] [place] [address] Nephrology 04/10/24 documented as of this encounter
--- OUTSIDE RECORDS SUMMARY | 2025-07-25 01:11 | XMS_ITS | Encounter Summary ---
Author Organization [facility] Health Address [address] [place] [address] Care Team Providers Care Inspector Machine Cut Glass Name Role Phone Compa Sam MD Unavailable [phone] Compa Sam MD Primary Care Provider [phone] Quintin Hope MD Unavailable [phone] Reason for Visit * Reason Onset Date Comments MEDICATION REFILL 12/22/2023 Encounter Details Date Type Department Care Team (Late st Contact Info) Description 12/22/2023 Refill [facility] Nephrology [address] [place] [address], [facility] [place] [address] Reva Edmond MD [address] [place] [address] [facility] [place] [address] MEDICATION REFILL Social History Tobacco Use Types [...] on file Legal Sex Female 8:35 AM INTRAMURAL DIRECTOR Gender Identity Not on file Sexual [...] st Contact Info) Description 09/22/2025 10:15 AM INTRAMURAL DIRECTOR Appointment [place] [id number] [place] [address] Quintin Snow MD [address] [place] [address] OF [facility] [place] [address] 09/22/2025 11:00 AM INTRAMURAL DIRECTOR Appointment [place] [address] [place] [address] Quintin Snow MD [address] [facility] [place] [address] documented as of this encounter Goals Goal [...] on filedocumented in this encounter Care Teams Inspector Machine Cut Glass Relationship Specialty Start Date End Date Compa Sam MD [address] [place] [address] PCP - General 12/28/22 Compa Sam MD [address] [place] [address] Family Medicine 09/29/22 Quintin Hope MD [address] [facility] [address] [place] [address] Nephrology 04/10/24 documented as of this encounter
--- OUTSIDE RECORDS SUMMARY | 2025-07-25 01:11 | XMS_ITS | Encounter Summary ---
Author Organization [facility] Health Address [address] [facility] [place] [address] Care Team Providers Care Custom Shoemaker Name Role Phone Compa Sam MD Unavailable [phone] Compa Sam MD Primary Care Provider [phone] Quintin Hope MD Unavailable [phone] Encounter Details Date Type Department Care Team (Late st Contact Info) Description 09/13/[address] [facility] MAIN LAB [address] [place] [phone] Quintin Snow MD [facility] OF ABD [place] [address] Social History Tobacco Use Types Packs/Day Years [...] on file Legal Sex Female 8:35 AM NEON TUBE BENDER Gender Identity Not on file Sexual Orientation [...] st Contact Info) Description 09/22/2025 10:15 AM NEON TUBE BENDER Appointment [facility] [address] [place] [address] Quintin Snow MD [address] [facility] DIV OF [facility] [place] [address] 09/22/2025 11:00 AM NEON TUBE BENDER Appointment [facility] [address] [place] [address] Quintin Snow MD [address] S [facility] DIV OF [facility] [place] [address] documented as of this encounter Goals Goal Patient Goal Type Associated Problems Recent Progress Patient-Stated? Author Blood Pressure < 140/90 Blood Pressure 126/81(2024 11:19 AM CDT) Lilian Tan alodize machine helper Management General On track( 12:38 PM CDT) [...] HLA SPECIMEN Routine 08/27/2024 1:0 4 PM NEON TUBE BENDER documented in this encounter Results * HOLD HLA SPECIMEN (08/27/2024 1:04 PM NEON TUBE BENDER) Hold HLA Specimen 09/13/2024 2:32 PM NEON TUBE BENDER [facility] ([facility]) Comment:The Hold HLA specime n has been received into the lab and will be held for 5 years at 4 degrees. Blood BLOOD SPECIMEN / Unknown 08/27/2024 1:04 PM NEON TUBE BENDER 09/13/2024 1:04 PM NEON TUBE BENDER Quintin Snow MD LAB - BLOOD BANK ORDERABLES F inal Result [facility] ([facility]) [address] [place], [place] [address] [place] [address] documented in this encounter Visit Diagnoses Not on filedocumented in this encounter Care Teams Custom Shoemaker Relationship Specialty Start Date End Date Compa Sam MD [address] [place] [address] PCP - General 12/28/22 Compa Sam MD [address] [facility] [address] [place] [address] Family Medicine 09/29/22 Quintin Hope MD [address] [facility] [address] [place] [address] Nephrology 04/10/24 documented as of this encounter
--- OUTSIDE RECORDS SUMMARY | 2025-07-25 01:11 | XMS_ITS | Encounter Summary ---
Author Organization [facility] Health Address [address] [facility] [address] Care Team Providers Care Security Officers And Guards Name Role Phone Compa Sam MD Unavailable [phone] Compa Sam MD Primary Care Provider [phone] Quintin Hope MD Unavailable [phone] Encounter Details Date Type Department Care Team (Late st Contact Info) Description 10/09/2023 Lab Requisition [facility] MAIN LAB [address] [place] [phone] Quintin Snow MD [facility] [place] [address] Social History Tobacco Use Types Packs/Day Years [...] on file Legal Sex Female 8:35 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 Gender Identity Not on file Sexual Orientation [...] Date Type Department Care Team (Late st [facility] Info) Description 09/22/2025 10:15 AM PELLET POST INSPECTOR Appointment [place] [address] [place] [address] Quintin Snow MD [facility]1 S [facility] DIV [facility] [place] [address] 09/22/2025 11:00 AM PELLET POST INSPECTOR Appointment [facility] [address] [place] [address] Quintin Snow MD [address] [facility] DIV [facility] [place] [address] documented as of this encounter Goals Goal [...] HLA SPECIMEN Routine 09/29/2023 12: 00 PM PELLET POST INSPECTOR documented in this encounter Results * HOLD HLA SPECIMEN (09/29/2023 12:00 PM PELLET POST INSPECTOR) Hold HLA Specimen 10/09/2023 4:01 PM PELLET POST INSPECTOR [facility] ([employer]) Comment:The Hold HLA specime n has been received into the lab and will be held for 5 years at 4 degrees. Blood BLOOD SPECIMEN / Unknown 09/29/2023 12:00 PM PELLET POST INSPECTOR 10/09/2023 2:53 PM PELLET POST INSPECTOR Quintin Snow MD LAB - BLOOD BANK ORDERABLES F inal Result [facility] ([employer]) [address] [place] [address], [facility] documented in this encounter Visit Diagnoses Not on filedocumented in this encounter Care Teams Security Officers And Guards Relationship Specialty Start Date End Date Compa Sam MD [address] [place] [address] PCP - General 12/28/22 Compa Sam MD [address] [place] [address] Family Medicine 09/29/22 Quintin Hope MD 1034 [facility] [address] [place] [address] Nephrology 04/10/24 documented as of this encounter
--- OUTSIDE RECORDS SUMMARY | 2025-07-25 01:11 | XMS_ITS | Encounter Summary ---
Author Organization [facility] Health Address [address] [facility] [place] [address] Care Team Providers Care Home Support Worker Name Role Phone Compa Sam MD Unavailable [phone] Compa Sam MD Primary Care Provider [phone] Quintin Hope MD Unavailable [phone] Encounter Details Date Type Department Care Team (Late st Contact Info) Description 06/09/2025 Lab Requisition [facility] MAIN LAB [address] [place] [phone] Quintin Snow MD [facility] OF [place] [address] Social History Tobacco Use Types Packs/Day Years [...] Date Recorded PHQ2 TOTAL SCORE 0 12/14/2021 [facility] [place] of Occupat ional Health - Occupational Stress [...] any time in the past 12 m [facility], were you homeless or living in a group home (including now)? No 02/19/2025 Comments No Sex and Gender Information Value Date Recorded Sex Assigned at Not on file Legal Sex Female 8:35 AM TEAM LEADER/RESEARCH PSYCHOLOGIST Gender Identity Not on file Sexual Orientation [...] st Contact Info) Description 09/22/2025 10:15 AM TEAM LEADER/RESEARCH PSYCHOLOGIST Appointment [address] [address] Quintin Snow MD [address] [place] [address] [place] [address] 09/22/2025 11:00 AM TEAM LEADER/RESEARCH PSYCHOLOGIST Appointment [place] [id number] [place] [address] Quintin Snow MD [address] [place] [address] [place] [address] documented as of this encounter Goals Goal [...] Associated Diagnosis Comments HOLD HLA SPECIMEN Routine 06/03/2025 3:0 1 PM CDT documented in this encounter Results * HOLD HLA SPECIMEN (06/03/2025 3:01 PM CDT) Hold HLA Specimen 06/09/2025 4:30 PM CDT [facility] Comment:The Hold HLA specime n has been received into the lab and will be held for 5 years at 4 degrees. Blood BLOOD SPECIMEN / Unknown 06/03/2025 3:01 PM CDT 06/09/2025 3:02 PM CDT Quintin Snow MD LAB - BLOOD BANK ORDERABLES F inal Result [facility] ([facility] [address] documented in this encounter Visit Diagnoses Not on filedocumented in this encounter Care Teams Home Support Worker Relationship Specialty Start Date End Date Compa Sam MD [address] [place] [address] PCP - General 12/28/22 Compa Sam MD [address] [place] [address] Family Medicine 09/29/22 Qiuntin Hope MD 1034 [facility] [address] [place] [address] Nephrology 04/10/24 documented as of this encounter
--- OUTSIDE RECORDS SUMMARY | 2025-07-25 01:11 | XMS_ITS | Encounter Summary ---
Author Organization [facility] Address [address] [place] [address] Care Team Providers Care Hospital Account Liaison Name Role Phone Compa Sam MD Unavailable [phone] Compa Sam MD Primary Care Provider [phone] Quintin Hope MD Unavailable [phone] Encounter Details Date Type Department Care Team (Late st Contact Info) Description 08/09/2024 Lab Requisition [facility] [address] [place] [phone] Quintin Snow MD 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 OF [facility] [place] [address] 09/22/2025 11:00 AM SUPERVISOR MAILS Appointment [facility] [address] [place] [address] Quintin Snow MD [address] [facility] OF [facility] [place] [address] documented as of this encounter Goals Goal Patient Goal Type Associated Problems Recent Progress Patient-Stated? Author Blood Pressure < 140/90 Blood Pressure 126/81(2024 11:19 AM CDT) Lilian Tan finisher merchant products Management General On track( 12:38 PM CDT) [...] HLA SPECIMEN Routine 08/05/2024 10: 50 AM SUPERVISOR MAILS documented in this encounter Results * HOLD HLA SPECIMEN (08/05/2024 10:50 AM SUPERVISOR MAILS) Hold HLA Specimen 08/09/2024 12:01 PM SUPERVISOR MAILS [facility] ([id number]) Comment:The Hold HLA specime n has been received into the lab and will be held for 5 years at 4 degrees. Blood BLOOD SPECIMEN / Unknown 08/05/2024 10:50 AM SUPERVISOR MAILS 08/09/2024 10:50 AM SUPERVISOR MAILS Quintin Snow MD LAB - BLOOD BANK ORDERABLES F inal Result [facility] ([facility]) [address] documented in this encounter Visit Diagnoses Not on filedocumented in this encounter Care Teams Hospital Account Liaison Relationship Specialty Start Date End Date Compa Sam MD [address] [place] [address] PCP - General 12/28/22 Compa Sam MD [address] [facility] [address] [place] [address] Family Medicine 09/29/22 Quintin Hope MD [address] [facility] [address] [place] [address] Nephrology 04/10/24 documented as of this encounter
[2025-07-25 11:14] VITALS: BP 121/79; PULSE 85; RESP 18; TEMP 36.6; O2SAT 100
--- NOTE | 2025-07-25 11:20 | SUR.PREOP ---
Blood sugar 127 with dexcom on left upper arm.
--- NOTE | 2025-07-25 12:03 | WPDANESEPPF ---
Anes - Initial Pre Proc Eval Procedure: Operation Date: 07/25/25 12:30 Proposed Procedures p Screening Colonoscopy - Jason Ji MD Date/Time: 07/25/25 12:03 Surgeon: Jason Ji MD Pre Op Diagnosis: Personal history of colon polyps, unspecified Patient Data Age: 65 Gender: F Height: Weight: 78.3 kg Last Vital Signs Temp 97.9 F 07/25/25 11:14 Pulse 85 07/25/25 11:14 Resp 18 07/25/25 11:14 BP 121/79 07/25/25 11:14 Pulse Ox 100 07/25/25 11:14 O2 Del Method Room Air 07/25/25 11:14 Allergies Allergy/AdvReac Type Severity Reaction Status Date / Time amoxicillin Allergy Unknown Rash Verified 07/16/25 09:39 clavulanic acid Allergy Unknown RASH Verified 07/16/25 09:39 levofloxacin AdvReac Unknown Nausea And Verified 07/16/25 09:39 Vomiting Home Medications ?Medication ?Instructions ?Recorded ?Confirmed ?Type aspirin 81 mg tablet,delayed 81 mg PO DAILY 10/24/19 07/25/25 History release allopurinol 100 mg tablet 150 mg PO DAILY 07/22/22 07/25/25 History calcitriol 0.25 mcg capsule 0.25 mcg PO DAILY 07/22/22 07/25/25 History cinacalcet 30 mg tablet 60 mg PO .nightly 07/22/22 07/25/25 History cholecalciferol (vitamin D3) 100 100 mcg PO DAILY 08/09/22 07/25/25 History mcg (4,000 unit) tablet metoprolol succinate 50 mg 50 mg PO BID 08/09/22 07/25/25 History tablet,extended release 24 hr bumetanide 2 mg tablet 4 mg PO QAM 12/02/23 07/25/25 History vitamin B complex-vitamin C-folic 1 tablet PO DAILY 12/02/23 07/25/25 History acid 0.8 mg tablet (Rossana-Carol) cyclobenzaprine 5 mg tablet 5 mg PO TID PRN muscle spasm 01/15/24 07/16/25 History trazodone 50 mg tablet 50 mg PO HS 01/15/24 07/25/25 History lansoprazole 30 mg capsule,delayed 30 mg PO BID 07/07/24 07/25/25 History release rosuvastatin 20 mg tablet 20 mg PO DAILY 07/07/24 07/25/25 History sitagliptin phosphate 25 mg tablet 25 mg PO DAILY 07/07/24 07/25/25 History (Januvia) doxazosin 1 mg tablet 4 mg PO QHS 09/25/24 07/25/25 History diltiazem HCl 120 mg capsule,24 120 mg PO QAM 30 days #30 caps 10/02/24 07/25/25 Rx hr,extended release hydroxyzine HCl 10 mg tablet 10 mg PO HS 01/09/25 07/25/25 History insulin glargine 100 unit/mL (3 8 unit subcut QPM 02/14/25 07/16/25 History mL) subcutaneous pen (Lantus Solostar U-100 Insulin) insulin lispro 100 unit/mL See Rx Instructions subcut 02/14/25 07/16/25 History subcutaneous pen ACINSULIN nifedipine 30 mg tablet,extended See Rx Instructions .Route 07/08/25 07/25/25 Rx release .COMPLEX #180 tabs sevelamer carbonate 800 mg tablet 800 mg PO DAILY 07/16/25 07/25/25 History Patient hx anesthesia problems: none Family hx anesthesia problems: none Results Review: All pre-operative results and documents have been reviewed as part of the pre-operative evaluation. 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 Transient hemodialysis now on peritoneal dialysis Surgical History Surgical History History of hysterectomy History of cholecystectomy History of appendectomy History of renal transplant (09/2018) With subsequent failure of transplant 2021 History of right nephrectomy As a child for Wilms tumor. Family History Family History Mother Family history of thyroid disease Family history of osteoporosis Depression Hypertension Family history of elevated blood lipids Family history of arthritis Family history of chronic obstructive pulmonary disease Family history of Alzheimer's disease Family history of atrial fibrillation Sibling Family history of thyroid disease Family history of hypercholesterolemia Hypertension Father Family history of hypercholesterolemia Hypertension Family history of cardiovascular disease Family history of coronary artery disease Social History Social History Social History: Surrogate medical decision maker: Mike Casey, spouse. Code status: Full code. Smoking status: Never smoker Second hand tobacco smoke exposure: No Alcohol intake: never Alcohol use details: Occasional Substance use: never Substance use type: does not use Do You Feel Safe in your Home?: Yes Lack of Transportation: No Lack of Food: Never True Current Housing: I Have Housing Concerned About Future Housing: No Difficulty Paying Gas/Electric Bills: No Difficulty Paying for Meds: No Currently Unemployed: No Education: Associate Degree Difficulty w/ Childcare or Family Care: No Living arrangements: with family Additional living arrangements comments: Lives in [place] with spouse. 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 Spiritual care concerns: No Anes - Eval Final PreProcedure Day of Procedure 07/25/25 12:03 Patient weight: overweight Lungs: normal air movement Airway: Mallampati scale class II Neurological: alert and oriented Last oral intake: >/= 8 hours ASA classification: IV Emergent: no Anesthetic plan: proceed Anesthesia type and monitoring: general GIVS and standard monitoring Results Review: All pre-operative results and documents have been reviewed as part of the pre-operative evaluation. HTN, hyperlipidemia, DM, pt w ESRD on PD, done 9 hrs yesterday. Active, can walk short distances, no cp or sob, limited by knee pain. Informed Consent: The patient's anesthetic plan and its attendant risks and benefits were discussed with the patient/family/POA. Questions were solicited and answers provided to the satisfaction of the patient/family/POA.
[2025-07-25] MEDS: LACTATED RINGERS 1,000 ML 150 ML IV CONT (12:19)
[2025-07-25] MEDS: SODIUM CHLORIDE 0.9% IV 500 ML 10 ML IV CONT (12:23)
--- NOTE | 2025-07-25 12:29 | PM.IMHP ---
H&P: HPI History of Present Illness Date/Time: 07/25/25 12:29 Chief Complaint: History of colon polyps Narrative: The patient has a history of colonic polyps, the last colonoscopy was in December this year, she had multiple polyps but the prep was suboptimal. She is here for repeat colonoscopy. Review of Systems Review of Systems: All systems reviewed & are unremarkable except as noted in HPI and below PMFSH Past Medical History Medical History Cardiomyopathy Chronic hyponatremia CKD (chronic kidney disease) Patient on peritoneal dialysis HTN (hypertension) Type 2 diabetes mellitus Thrombocytopenia Chronic anemia Cytomegalovirus Gastroesophageal reflux disease Hypertension Wilm's tumor of right kidney Right kidney resected as a child Arthritis Hyperlipidemia Renal transplant recipient Kidney transplant 2018 with transplant failure 2021. Transient hemodialysis now on peritoneal dialysis Surgical History Surgical History History of hysterectomy History of cholecystectomy History of appendectomy History of renal transplant (09/2018) With subsequent failure of transplant 2021 History of right nephrectomy As a child for Wilms tumor. Family History Family History Mother Family history of thyroid disease Family history of osteoporosis Depression Hypertension Family history of elevated blood lipids Family history of arthritis Family history of chronic obstructive pulmonary disease Family history of Alzheimer's disease Family history of atrial fibrillation Sibling Family history of thyroid disease Family history of hypercholesterolemia Hypertension Father Family history of hypercholesterolemia Hypertension Family history of cardiovascular disease Family history of coronary artery disease Social History Social History Social History: Surrogate medical decision maker: Mike Casey, spouse. Code status: Full code. Smoking status: Never smoker Second hand tobacco smoke exposure: No Alcohol intake: never Alcohol use details: Occasional Substance use: never Substance use type: does not use Do You Feel Safe in your Home?: Yes Lack of Transportation: No Lack of Food: Never True Current Housing: I Have Housing Concerned About Future Housing: No Difficulty Paying Gas/Electric Bills: No Difficulty Paying for Meds: No Currently Unemployed: No Education: Associate Degree Difficulty w/ Childcare or Family Care: No Living arrangements: with family Additional living arrangements comments: Lives in [place] with spouse. 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 Spiritual care concerns: No Meds Home Medications and Allergies Home Medications ?Medication ?Instructions ?Recorded ?Confirmed ?Type aspirin 81 mg tablet,delayed 81 mg PO DAILY 10/24/19 07/25/25 History release allopurinol 100 mg tablet 150 mg PO DAILY 07/22/22 07/25/25 History calcitriol 0.25 mcg capsule 0.25 mcg PO DAILY 07/22/22 07/25/25 History cinacalcet 30 mg tablet 60 mg PO .nightly 07/22/22 07/25/25 History cholecalciferol (vitamin D3) 100 100 mcg PO DAILY 08/09/22 07/25/25 History mcg (4,000 unit) tablet metoprolol succinate 50 mg 50 mg PO BID 08/09/22 07/25/25 History tablet,extended release 24 hr bumetanide 2 mg tablet 4 mg PO QAM 12/02/23 07/25/25 History vitamin B complex-vitamin C-folic 1 tablet PO DAILY 12/02/23 07/25/25 History acid 0.8 mg tablet (Rossana-Carol) cyclobenzaprine 5 mg tablet 5 mg PO TID PRN muscle spasm 01/15/24 07/16/25 History trazodone 50 mg tablet 50 mg PO HS 01/15/24 07/25/25 History lansoprazole 30 mg capsule,delayed 30 mg PO BID 07/07/24 07/25/25 History release rosuvastatin 20 mg tablet 20 mg PO DAILY 07/07/24 07/25/25 History sitagliptin phosphate 25 mg tablet 25 mg PO DAILY 07/07/24 07/25/25 History (Januvia) doxazosin 1 mg tablet 4 mg PO QHS 09/25/24 07/25/25 History diltiazem HCl 120 mg capsule,24 120 mg PO QAM 30 days #30 caps 10/02/24 07/25/25 Rx hr,extended release hydroxyzine HCl 10 mg tablet 10 mg PO HS 01/09/25 07/25/25 History insulin glargine 100 unit/mL (3 8 unit subcut QPM 02/14/25 07/16/25 History mL) subcutaneous pen (Lantus Solostar U-100 Insulin) insulin lispro 100 unit/mL See Rx Instructions subcut 02/14/25 07/16/25 History subcutaneous pen ACINSULIN nifedipine 30 mg tablet,extended See Rx Instructions .Route 07/08/25 07/25/25 Rx release .COMPLEX #180 tabs sevelamer carbonate 800 mg tablet 800 mg PO DAILY 07/16/25 07/25/25 History Allergies Allergy/AdvReac Type Severity Reaction Status Date / Time amoxicillin Allergy Unknown Rash Verified 07/16/25 09:39 clavulanic acid Allergy Unknown RASH Verified 07/16/25 09:39 levofloxacin AdvReac Unknown Nausea And Verified 07/16/25 09:39 Vomiting Vital Signs Vital Signs - 24 hr 07/25/25 11:14 Temperature 97.9 F Pulse Rate 85 Respiratory Rate 18 Blood Pressure 121/79 Pulse Oximetry 100 Oxygen Delivery Room Air Assessment and Plan Assessment and plan (1) Iron deficiency anemia, unspecified: Code(s): D50.9 - Iron deficiency anemia, unspecified Status: Acute Assessment and Plan: The patient is deemed a good candidate for the procedure. Consent signed. Will proceed.
[2025-07-25 12:34] VITALS: BMI 29.6
--- NOTE | 2025-07-25 12:54 | S_PTH ---
PATIENT: Brandy Casey LOC: [facility]#:[id number] AGE/SX: 65/F ROOM: RE07/25/[address]: Jason Ji MD : 1960 BED: DIS: 07/25/2025 SPEC #: [id number] RECD: 07/25/25 14:02 STATUS: YONI RECaity #: [id number] RYAN: 07/25/25 12:[address]: Jason Ji DEPT: [facility] Surgical RECD BY: Oumou Yanez ENTERED: 07/25/25 14:02 SP TYPE: Surgical OTHR DR: Compa Sam MD Tissues: A - Colon Polypectomy Procedures: Hematoxylin and Eosin Stain Gross and Microscopic Level 4
[2025-07-25 12:59] VITALS: BP 123/65; PULSE 76; RESP 20; O2SAT 100
[2025-07-25 13:09] VITALS: BP 123/65; PULSE 71; RESP 18; O2SAT 100
[2025-07-25 13:19] VITALS: BP 131/84; PULSE 74; RESP 16; O2SAT 100
== END 2025-07-25 13:29 | disposition home or self-care (01) ==
PROVIDERS: PCP Family Medicine; Referring Provider Internal Medicine Gastroenterology; Visit Provider Internal Medicine Gastroenterology
PROC: 0DJD8ZZ Inspection of Lower Intestinal Tract, Via Natural or Artificial Opening Endoscopic (ICD-10-PCS; CPT 45378; principal; 2025-07-25 12:30)
DX: D50.9 Iron deficiency anemia, unspecified (principal); D12.5 Benign neoplasm of sigmoid colon; K63.5 Polyp of colon; K57.30 Diverticulosis of large intestine without perforation or abscess without bleeding; K63.89 Other specified diseases of intestine; E78.5 Hyperlipidemia, unspecified; E11.22 Type 2 diabetes mellitus with diabetic chronic kidney disease; I12.9 Hypertensive chronic kidney disease with stage 1 through stage 4 chronic kidney disease, or unspecified chronic kidney disease; N18.9 Chronic kidney disease, unspecified; K21.9 Gastro-esophageal reflux disease without esophagitis; E87.1 Hypo-osmolality and hyponatremia; D69.6 Thrombocytopenia, unspecified; M19.90 Unspecified osteoarthritis, unspecified site; Z79.82 Long term (current) use of aspirin; Z79.84 Long term (current) use of oral hypoglycemic drugs; Z79.4 Long term (current) use of insulin; Z98.890 Other specified postprocedural states; Z90.49 Acquired absence of other specified parts of digestive tract; Z94.0 Kidney transplant status; Z99.2 Dependence on renal dialysis; Z82.49 Family history of ischemic heart disease and other diseases of the circulatory system
CPT/HCPCS: 45385; 88305; J2003; J2704; J7040; J7120

== ENCOUNTER 2025-08-19 14:45 | Outpatient (CLI) | payer MEDICARE, BC, SELFPAY ==
--- NOTE | ~2025-08-19 | MM_ITS ---
EXAMINATION: MM screening [facility] BI w [facility] HISTORY: Screening TECHNIQUE: Craniocaudal and mediolateral oblique 3-D tomosynthesis images were obtained and synthetic 2-D images were generated. CAD analysis was submitted and interpreted. COMPARISON: Comparison to multiple prior studies sequentially, with oldest reviewed study dated 09/23/2020. BREAST PARENCHYMAL COMPOSITION: Not dense: There are scattered areas of fibroglandular density. FINDINGS: There is no evidence of suspicious mass, calcification, or architectural distortion to suggest malignancy in either breast. There has been no suspicious interval change. IMPRESSION: 1. No mammographic evidence of malignancy. 2. Recommend routine screening mammography in one year. BI-RADS Category 1: Negative Reviewed, dictated and finalized at location [facility]. [facility]
--- OUTSIDE RECORDS SUMMARY | 2025-08-19 16:35 | XMS_ITS | Encounter Summary ---
Author Organization [facility] Address [address] [place] [address] Care Team Providers Care Manager Oracle Database Name Role Phone Compa Sam MD Unavailable [phone] Compa Sam MD Primary Care Provider [phone] Quintin Hope MD Unavailable [phone] Encounter Details Date Type Department Care Team (Late st Contact Info) Description 06/09/2025 Lab Requisition [facility] [address] [place] [phone] Quintin Snow MD [facility] [place] [address] Social History Tobacco Use Types Packs/Day Years [...] Date Recorded PHQ2 TOTAL SCORE 0 12/14/2021 [facility] [place] of Occupat ional Health - Occupational Stress [...] any time in the past 12 m [facility], were you homeless or living in a halfway (including now)? No 02/19/2025 Comments No Sex and Gender Information Value Date Recorded Sex Assigned at Not on file Legal Sex Female 8:35 AM PIPELINE WELDER Gender Identity Not on file Sexual Orientation [...] of Assessment Author No 02/17/2025 12:08 PM CDT Dipti Emmanuel RN * Does person have difficulty doing errands alone? Answer Date of Assessment Author Yes 02/17/2025 12:08 PM NIKITAT Dipti Emmanuel RN documented as of this encounter Mental Status * Does person have difficulty concentrating/remembering/making decisions? Answer Entry Date Author Yes 02/17/2025 12:08 PM CDT Dipti Emmanuel RN documented in this encounter Plan of Treatment Upcoming Encounters Date Type Department Care Team (Late st Contact Info) Description 09/02/2025 3:00 PM PIPELINE WELDER Appointment [facility] [address] [place] [phone] Estee Lindsey, DIRECTOR OF WOMEN'S SERVICES-PRESSURISED CONTAINER FILLER [address] [place] [address].[place] [address] 09/22/2025 10:15 AM PIPELINE WELDER Appointment [address] [phone] Quintin Snow MD [address] [place] [address] [place] [address] 09/22/2025 11:00 AM PIPELINE WELDER Appointment [address] [phone] Quintin Snow MD [address] [place] [address] [place] [address] documented as of this encounter Goals Goal Patient Goal Type Associated Problems Recent Progress Patient-Stated? Author Blood Pressure < 140/90 Blood Pressure 87/70( 025 9:24 AM PIPELINE WELDER) No Lilian Sky RN Medication Management General [...] Hold HLA Specimen 06/09/2025 4:30 PM CDT [facility] ([facility]) Comment:The Hold HLA specime n has been received into the lab and will be held for 5 years at 4 degrees. Blood BLOOD SPECIMEN / Unknown 06/03/2025 3:01 PM CDT 06/09/2025 3:02 PM CDT us Quintin Snow MD LAB - BLOOD BANK ORDERABLES F inal Result [facility] ([facility]) [address] documented in this encounter Visit Diagnoses Not on filedocumented in this encounter Care Teams Manager Oracle Database Relationship Specialty Start Date End Date Compa Sam MD [address] [facility] [address] [place] [address] PCP - General 12/28/22 Compa Sam MD [address] [facility] [address] [place] [address] Family Medicine 09/29/22 Quintin Hope MD [address] [facility] [address] [place] [address] Nephrology 04/10/24 documented as of this encounter
--- OUTSIDE RECORDS SUMMARY | 2025-08-19 16:35 | XMS_ITS | Clinical Summary ---
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 Gender Identity Not on file Sexual Orientation Not on file Plan of Treatment Health Maintenance Due Date Last Done Comments Colorectal Cancer Screening Colonoscopy (10 Years) 1959 Hepatitis C 1977 DTaP, Tdap and Td Vaccines ( 1 - Tdap) 1978 Mammogram Screening 1999 Pneumococcal Vaccine: 50+ Ye ars (1 of 1 - PCV) 2009 Zoster Vaccines (1 of 2) 2009 Annual Medicare Wellness Visit 02/10/2024 Dexa Scan (General) 02/10/2024 COVID-19 Vaccine (1 - 2024-2 6 season) 2025 Influenza Adult (#1) 2025 RSV Immunization or 60+ Years (1 - 1-dose 75+ series) 2034 Hepatitis A Vaccines Aged Out No long er eligible based on patient's age to complete this topic Meningococcal B Vaccine Aged Out No l onger eligible based on patient's age to complete this topic Meningococcal Vaccine Aged Out No lalo jalil eligible based on patient's age to complete this topic RSV Immunizations Under 20 Months Aged Out No longer eligible based on patient's age to complete this topic Insurance MEDICARE
--- OUTSIDE RECORDS SUMMARY | 2025-08-19 16:35 | XMS_ITS | Encounter Summary ---
Author Organization [facility] Address [address] [place] [address] Care Team Providers Care Strategic Consultant Name Role Phone Compa Sam MD Unavailable [phone] Compa Sam MD Primary Care Provider [phone] Quintin Hope MD Unavailable [phone] Encounter Details Date Type Department Care Team (Latest Contact Info) Description 08/18/2025 Travel Social History Tobacco Use Types Packs/Day Years [...] Date Recorded PHQ2 TOTAL SCORE 0 12/14/2021 [facility] [place] of Occupat ional Health - Occupational Stress [...] any time in the past 12 m onths, were you homeless or living in a jail (including now)? No 02/19/2025 Comments No Sex and Gender Information Value Date Recorded Sex Assigned at Not on file Legal Sex Female 8:35 AM AMMONIUM NITRATE NEUTRALIZER Gender Identity Not on file Sexual Orientation [...] Caba RN * Does person have difficulty doing [...] st Contact Info) Description 09/02/2025 3:00 PM AMMONIUM NITRATE NEUTRALIZER Appointment [facility] [address] [place] [phone] Estee Lindsey, CUSTOMER SERVICE SPECIALIST-OIL WELL SERVICES SUPERINTENDENT [address] [facility] [place] [address] 09/22/2025 10:15 AM AMMONIUM NITRATE NEUTRALIZER Appointment [address] [phone] Quintin Snow MD [address] [place] [address] [place] [address] 09/22/2025 11:00 AM AMMONIUM NITRATE NEUTRALIZER Appointment [place] [id number] [place] [phone] Quintin Snow MD [address] [place] [address] [place] [address] documented as of this encounter Goals Goal Patient Goal Type Associated Problems Recent Progress Patient-Stated? Author Blood Pressure < 140/90 Blood Pressure 87/70( 025 9:24 AM AMMONIUM NITRATE NEUTRALIZER) No Lilian Sky RN Medication Management General [...] on filedocumented in this encounter Care Teams Strategic Consultant Relationship Specialty Start Date End Date Compa Sam MD [address] [facility] [address] [place] [address] PCP - General 12/28/22 Compa Sam MD [address] [facility] [address] [place] [address] Family Medicine 09/29/22 Quintin Hope MD [address] [facility] [address] [place] [address] Nephrology 04/10/24 documented as of this encounter
--- OUTSIDE RECORDS SUMMARY | 2025-08-19 16:35 | XMS_ITS | Encounter Summary ---
Author Organization [facility] Address [address] [facility] [address] Care Team Providers Care Agile Developer Name Role Phone Compa Sam MD Unavailable [phone] Compa Sam MD Primary Care Provider [phone] Quintin Hope MD Unavailable [phone] Encounter Details Date Type Department Care Team (Late st Contact Info) Description 08/14/2025 Lab Requisition [facility] MAIN LAB [address] [place] [phone] Quintin Snow MD [facility] [place] [address] Social History Tobacco Use Types Packs/Day Years [...] Date Recorded PHQ2 TOTAL SCORE 0 12/14/2021 [facility] [place] of Occupat ional Health - Occupational Stress [...] any time in the past 12 m [facility], were you homeless or living in a fci (including now)? No 02/19/2025 Comments No Sex and Gender Information Value Date Recorded Sex Assigned at Not on file Legal Sex Female 8:35 AM PRODUCT MARKETING INTERN Gender Identity Not on file Sexual Orientation [...] st Contact Info) Description 09/02/2025 3:00 PM PRODUCT MARKETING INTERN Appointment [facility] [address] [place] [phone] Estee Lindsey, HOME HEALTH SCHEDULER-SOUND TECHNICIAN SUPERVISOR [address] [place] [address].[place] [address] 09/22/2025 10:15 AM PRODUCT MARKETING INTERN Appointment [address] [phone] Quintin Snow MD [address] [place] [address] [place] [address] 09/22/2025 11:00 AM PRODUCT MARKETING INTERN Appointment [address] [phone] Quintin Snow MD [address] [place] [address] [place] [address] documented as of this encounter Goals Goal Patient Goal Type Associated Problems Recent Progress Patient-Stated? Author Blood Pressure < 140/90 Blood Pressure 87/70( 025 9:24 AM PRODUCT MARKETING INTERN) No Lilian Sky RN Medication Management General [...] Associated Diagnosis Comments HOLD HLA SPECIMEN Routine 08/04/2025 12: 22 PM PRODUCT MARKETING INTERN documented in this encounter Results * HOLD HLA SPECIMEN (08/04/2025 12:22 PM PRODUCT MARKETING INTERN) Hold HLA Specimen 08/14/2025 1:32 PM PRODUCT MARKETING INTERN [facility] ([facility] Comment:The Hold HLA specime n has been received into the lab and will be held for 5 years at 4 degrees. Blood BLOOD SPECIMEN / Unknown 08/04/2025 12:22 PM PRODUCT MARKETING INTERN 08/14/2025 12:22 PM PRODUCT MARKETING INTERN us Quintin Snow MD LAB - BLOOD BANK ORDERABLES F inal Result [facility] ([facility] [address] documented in this encounter Visit Diagnoses Not on filedocumented in this encounter Care Teams Agile Developer Relationship Specialty Start Date End Date Compa Sam MD [address] [place] [address] PCP - General 12/28/22 Compa Sam MD [address] [place] [address] Family Medicine 09/29/22 Quintin Hope MD 1034 [facility] 1280 [place] [address] Nephrology 04/10/24 documented as of this encounter
--- OUTSIDE RECORDS SUMMARY | 2025-08-19 16:35 | XMS_ITS ---
Author Organization [facility] Address [address] [facility] [place] [address] Care Team Providers Care Health Researcher Name Role Phone Compa Sam MD Unavailable [phone] Compa Sam MD Primary Care Provider [phone] Quintin Hope MD Unavailable [phone] Transplant Episode Kidney Candidate [facility] ([place], [place]) - [facility] Center waitlisted on 05/10/2023 Marked as Active on 03/13/2025 Kidney CoordinatorLilian Sky RN Phone: N/A Fax: N/A Email: N/A Scores Score Value Updated Exceptions/Reas ons CPRA Not available EPTS (Calc) 91 08/19/2025 [place] Organ Diagnosis Organ Primary Contributory Kidney Diabetes Mellitus - Type II [place] t Failure Care Team Name Role Phone Fax Email Lilian Sky RN Kidney Coordinator N/A N/A N/A Reva Edmond MD Transplant Lathe Winder [phone] N/A Quintin Hope MD Referring Physician [phone] N/A Joyce Dobson Moss Picker N/A N/A N/A Events Pre-Transplant Referred: 06/14/2022 Evaluation began: 07/12/2022 Committee: 04/13/2023 UNOS qualified: 06/16/2022 Center waitlisted: 05/10/2023 Dialysis History Dialysis History Start End Type Comments Center 12/26/2023 Peritoneal Dialysis [facility] 06/16/2022 12/25/2023 Home-[facility] Soraya,M,W,F; PD tra ining starts 10/25 [facility] Dialysis Center Information Center Phone Fax Address [facility] [phone] [address] [address]
--- OUTSIDE RECORDS SUMMARY | 2025-08-19 16:35 | XMS_ITS | Encounter Summary ---
Author Organization [facility] Address [address] [place] [address] Care Team Providers Care Timber Killer Name Role Phone Debbie Middleton Primary Care Provider + [phone] Compa Sam MD Primary Care Provider + [phone] Debbie Middleton Primary Care Provider [phone] Compa Sam MD Unavailable [phone] Debbie Middleton Primary Care Provider [phone] Compa Sam MD Primary Care Provider [phone] Quintin Hope MD Unavailable [phone] Reason for Visit * Reason Onset Date Comments MEDICATION REFILL 05/26/2022 Encounter Details Date Type Department Care Team (Late st Contact Info) Description 05/26/2022 Refill [facility] - Nephrology [address] [place] [address], [place] [phone] Abhi Jackson MD [address] [place] [address] [place] [address] MEDICATION REFILL Social History Tobacco [...] on file Legal Sex Female 8:35 AM CONTRACT COORDINATOR Gender Identity Not on file Sexual Orientation [...] st Contact Info) Description 09/02/2025 3:00 PM CONTRACT COORDINATOR Appointment [facility] Pain Care [address] [place] [address] Estee Lindsey, ACID CONDITIONING WORKER-BANQUET STEWARD 64[address] [facility] [place] [address] 09/22/2025 10:15 AM CONTRACT COORDINATOR Appointment [address] [place] [address] Quintin Snow MD [address] [facility] [place] [address] 09/22/2025 11:00 AM CONTRACT COORDINATOR Appointment [facility] [address] [place] [address] Quintin Snow MD [facility] [place] [address] documented as of this encounter Goals Goal [...] documented as of this encounter Care Teams Timber Killer Relationship Specialty Start Date End Date Debbie Middleton APRN-CNP PCP - General 10/06/21 08/29/22 Compa Sam MD [address] [phone] PCP - General Family Medicine 08/30/22 09/25/22 Debbie Middleton APRN-CNP PCP - General 09/26/22 09/28/22 Debbie Middleton APRN-CNP PCP - General 10/11/22 12/27/22 Compa Sam MD 6812 [facility] [address] [place] [address] PCP - General 12/28/22 Compa Sam MD [address] [facility] [address] [place] [address] Family Medicine 09/29/22 Quintin Hope MD 1034 [place] 12[address] [place] [address] Nephrology 04/10/24 documented as of this encounter
--- OUTSIDE RECORDS SUMMARY | 2025-08-19 16:35 | XMS_ITS | Encounter Summary ---
Author Organization [facility] Health Address [address] [facility] [place] [address] Care Team Providers Care Laundry Agent Name Role Phone Compa Sam MD Unavailable [phone] Compa Sam MD Primary Care Provider [phone] Quintin Hope MD Unavailable [phone] Encounter Details Date Type Department Care Team (Late st Contact Info) Description 08/09/2024 Lab Requisition [facility] MAIN LAB [address] [place] [phone] Quintin Snow MD [facility] OF ABD [place] [address] Social History Tobacco Use Types Packs/Day Years [...] on file Legal Sex Female 8:35 AM CHIROPRACTIC NEUROLOGIST Gender Identity Not on file Sexual Orientation [...] st Contact Info) Description 09/02/2025 3:00 PM CHIROPRACTIC NEUROLOGIST Appointment [facility] Health Pain Care [address] [place] [address] Estee Lindsey, DOUBLER OPERATOR-FIBER ANALYST 64[address] [facility] [place] [address] 09/22/2025 10:15 AM CHIROPRACTIC NEUROLOGIST Appointment [address] [address] Quintin Snow MD [address] [place] [address] OF ABD [place] [address] 09/22/2025 11:00 AM CHIROPRACTIC NEUROLOGIST Appointment [facility] [address] [place] [phone] Quintin Snow MD [address] [facility] OF ABD [place] [address] documented as of this encounter Goals Goal Patient Goal Type Associated Problems Recent Progress Patient-Stated? Author Blood Pressure < 140/90 Blood Pressure 87/70( 025 9:24 AM CHIROPRACTIC NEUROLOGIST) No Lilian Sky RN Medication Management General [...] HLA SPECIMEN Routine 08/05/2024 10: 50 AM CHIROPRACTIC NEUROLOGIST documented in this encounter Results * HOLD HLA SPECIMEN (08/05/2024 10:50 AM CHIROPRACTIC NEUROLOGIST) Hold HLA Specimen 08/09/2024 12:01 PM CHIROPRACTIC NEUROLOGIST [facility] ([facility]) Comment:The Hold HLA specime n has been received into the lab and will be held for 5 years at 4 degrees. Blood BLOOD SPECIMEN / Unknown 08/05/2024 10:50 AM CHIROPRACTIC NEUROLOGIST 08/09/2024 10:50 AM CHIROPRACTIC NEUROLOGIST Quintin Snow MD LAB - BLOOD BANK ORDERABLES F inal Result [facility] ([place]) [address] [place] [address], [facility] documented in this encounter Visit Diagnoses Not on filedocumented in this encounter Care Teams Laundry Agent Relationship Specialty Start Date End Date Compa Sam MD [address] [place] [address] PCP - General 12/28/22 Compa Sam MD [address] [place] [address] Family Medicine 09/29/22 Quintin Hope MD [address] [facility] 12[address] [place] [address] Nephrology 04/10/24 documented as of this encounter
--- OUTSIDE RECORDS SUMMARY | 2025-08-19 16:35 | XMS_ITS | Encounter Summary ---
Author Organization [facility] Address [address] [facility] [place] [address] Care Team Providers Care It Corporate Recruiter Name Role Phone Debbie Middleton Primary Care Provider [phone] Compa Sam MD Primary Care Provider [phone] Debbie Middleton Primary Care Provider [phone] Compa Sam MD Unavailable [phone] Debbie Middleton Primary Care Provider [phone] Compa Sam MD Primary Care Provider [phone] Quintin Hope MD Unavailable [phone] Encounter Details Date Type Department Care Team (Late st Contact Info) Description 04/27/2022 Lab Requisition [facility] Pathology Lab [address] [place] [address] Mary Alan MD 1 [place], [place] [id number] Chronic kidney disease, stage 3b; Kidney transplant [...] on file Legal Sex Female 8:35 AM [facility] Gender Identity Not on file Sexual Orientation [...] st Contact Info) Description 09/02/2025 3:00 PM [facility] Pain Care [address] [place] [address] Estee Lindsey, DONKEY ENGINE FIRER/FIREMAN-INSPECTOR PRINTED CIRCUIT BOARDS [address] [place] [address].[place] [address] 09/22/2025 10:15 AM [facility] Appointment [facility] [address] [place] [address] Quintin Snow MD [facility]1 [facility] [place] [address] 09/22/2025 11:00 AM [facility] Appointment [facility] [address] [place] [address] Quintin Sonw MD [facility] [place] [address] documented as of this encounter Goals Goal [...] Priority Date/Time Associated Diagnosis Comments ELECTRON MICROSCOPY (U) Routine 04/26/2022 11:56 AM CDT Chronic kidney disease, stage 3b Kidney transplant rejection Acute kidney failure, unspecified documented in this encounter Results * ELECTRON MICROSCOPY (U) (04/26/2022 11:56 AM CDT) Case Report Gynecologic Cytology Report Case: [id number] Authorizing Provider: Mary Alan MD Collected: 04/26/2022 11:56 AM Ordering Location: [facility] Care Pathology Lab Received: 04/27/2022 11:44 AM First Screen: Zaid Umaña Specimen: EM RENAL - [facility], Kidney, Left, Thee pieces approx. 1.5 mm long@ 05/05/2022 3:24 PM CDT [facility] PATHOLOGY LAB Electron Microscopy Technical Summary # of Block(s) cut: 5 # of Glomeruli found: 1 # of Glomeruli photographed: 1 05/05/2022 3:24 PM CDT [facility] PATHOLOGY LAB Embedded Images - EM 05/05/2022 3:24 PM CDT [facility] PATHOLOGY LAB Pathology/Cytolo gy (Kidney, Left) 04/26/2022 11:56 AM CDT 04/27/2022 11:44 AM CDT Mary Alan MD LAB - PATHOLOGY/CYTOLOGY ORDER JOSEPH Final Result [facility] PATHOLOGY LAB [address] [phone] documented in this encounter Visit Diagnoses Diagnosis Chronic kidney disease, stage 3b (HCC) 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 Acute kidney failure, unspecified documented in this encounter Additional Health Concerns Infection Onset Date Last Indicated Resolved Time COVID-19 Under Investigation 07/15/2022 07/15/2022 07/26/2022 4:33 AM CDT documented as of this encounter Care Teams It Corporate Recruiter Relationship Specialty Start Date End Date Debbie Middleton APRN-CNP PCP - General 10/06/21 08/29/22 Compa Sam MD [address] [facility] [address] [place] [phone] PCP - General Family Medicine 08/30/22 09/25/22 Debbie Middleton APRN-CNP PCP - General 09/26/22 09/28/22 Debbie Middleton APRN-CNP PCP - General 10/11/22 12/27/22 Compa Sam MD [address] [place] [address] PCP - General 12/28/22 Compa Sam MD [address] [facility] [address] [place] [address] Family Medicine 09/29/22 Quintin Hope MD 1034 [facility] 1280 [place] [address] Nephrology 04/10/24 documented as of this encounter
--- OUTSIDE RECORDS SUMMARY | 2025-08-19 16:35 | XMS_ITS | Encounter Summary ---
Author Organization [facility] Address [address] [facility] [place] [address] Care Team Providers Care Ict Help Desk Technician Name Role Phone Debbie Middleton Primary Care Provider + [phone] Compa Sam MD Primary Care Provider [phone] Debbie Middleton Primary Care Provider [phone] Compa Sam MD Unavailable [phone] Debbie Middleton Primary Care Provider [phone] Compa Sam MD Primary Care Provider [phone] Quintin Hope MD Unavailable [phone] Encounter Details Date Type Department Care Team (Late st Contact Info) Description 04/22/2022 Telephone [facility] - [address] [place] [phone] Samara Auguste, RN Social History Tobacco Use [...] on file Legal Sex Female 8:35 AM SILVER RECOVERY OPERATOR Gender Identity Not on file Sexual [...] advise. Dr. Sotomayor notified.Please return call @ [phone]. documented in this encounter Plan of Treatment Upcoming Encounters Date Type Department Care Team (Late st Contact Info) Description 09/02/2025 3:00 PM SILVER RECOVERY OPERATOR Appointment [facility] Pain Care [address] [place] [phone] Estee Lindsey, WELLNESS SPA MANAGER-JUNIOR SOFTWARE ENGINEER [address] [place] [address].[place] [address] 09/22/2025 10:15 AM SILVER RECOVERY OPERATOR Appointment [address] [address] Quintin Snow MD [address] [place] [address] [place] [address] 09/22/2025 11:00 AM SILVER RECOVERY OPERATOR Appointment [address] [address] Quintin Snow MD [address] [place] [address] [place] [address] documented as of this encounter Goals Goal [...] documented as of this encounter Care Teams Ict Help Desk Technician Relationship Specialty Start Date End Date Debbie Middleton APRN-CNP PCP - General 10/06/21 08/29/22 Compa Sam MD [address] [place] [phone] PCP - General Family Medicine 08/30/22 09/25/22 Debbie Middleton APRN-CNP PCP - General 09/26/22 09/28/22 Debbie Middleton APRN-JUNIOR SOFTWARE ENGINEER PCP - General 10/11/22 12/27/22 Compa Sam MD [address] [place] [address] PCP - General 12/28/22 Compa Sam MD [address] [place] [address] Family Medicine 09/29/22 Quintin Hope MD [address] [facility] 1280 [place] [address] Nephrology 04/10/24 documented as of this encounter
--- OUTSIDE RECORDS SUMMARY | 2025-08-19 16:35 | XMS_ITS | Clinical Summary ---
Author Organization [facility] Address [address] [place] [address] Phone Care Team Providers Care Bladder Trimmer Name Role Phone Unavailable Primary Care Provider Unavailabl e Social History Tobacco Use Types Packs/Day Years Used Date Smoking Tobacco: Never Assessed Comments Unknown Sex and Gender Information Value Date Recorded Sex Assigned at Not on file Legal Sex Female 2:30 PM CTE TEACHER Gender Identity Not on file Sexual [...]
--- OUTSIDE RECORDS SUMMARY | 2025-08-19 16:35 | XMS_ITS | Encounter Summary ---
Author Organization [facility] Address [address] [facility] [place] [address] Care Team Providers Care Magazine Supervisor Name Role Phone Compa Sam MD Unavailable [phone] Compa Sam MD Primary Care Provider [phone] Quintin Hope MD Unavailable [phone] Encounter Details Date Type Department Care Team (Late st Contact Info) Description 04/02/2025 Lab Requisition [facility] MAIN LAB [address] [place] [phone] Quintin Snow MD [facility] OF ABD [place] [address] Social History Tobacco Use Types Packs/Day Years [...] Date Recorded PHQ2 TOTAL SCORE 0 12/14/2021 [facility] [place] of Occupat ional Health - Occupational Stress [...] any time in the past 12 m [facility], were you homeless or living in a long term (including now)? No 02/19/2025 Comments No Sex and Gender Information Value Date Recorded Sex Assigned at Not on file Legal Sex Female 8:35 AM SOCIAL INSURANCE SPECIALIST Gender Identity Not on file Sexual [...] st Contact Info) Description 09/02/2025 3:00 PM SOCIAL INSURANCE SPECIALIST Appointment [facility] Pain Care [address] [place] [phone] Estee Lindsey, SPINNING MULE OPERATOR-INSIDE B2B SALES [address] [place] [address].[place] [address] 09/22/2025 10:15 AM SOCIAL INSURANCE SPECIALIST Appointment [address] [phone] Quintin Snow MD [address] [place] [address] [place] [address] 09/22/2025 11:00 AM SOCIAL INSURANCE SPECIALIST Appointment [address] [phone] Quintin Snow MD [address] [place] [address] [place] [address] documented as of this encounter Goals Goal Patient Goal Type Associated Problems Recent Progress Patient-Stated? Author Blood Pressure < 140/90 Blood Pressure 87/70( 025 9:24 AM SOCIAL INSURANCE SPECIALIST) No Lilian Sky RN Medication Management General On track( 024 12:38 PM CDT) No Tabitha Vizcarra RN Note: Expected end date: ONGOING Interventions: Take all medications as prescribed Let your doctor know right away about any changes in your medications Make sure to request a refill of your medication at least one week prior to your last dose Medication Management General No Tabitha Vizacrra, RN Note: Expected end date: ongoing Interventions: [...] Hold HLA Specimen 04/02/2025 3:31 PM CDT [facility] ([facility]) Comment:The Hold HLA specime n has been received into the lab and will be held for 5 years at 4 degrees. Blood BLOOD SPECIMEN / Unknown 03/27/2025 2:17 PM CDT 04/02/2025 2:17 PM CDT us Quintin Snow MD LAB - BLOOD BANK ORDERABLES F inal Result [facility] ([facility]) [address] documented in this encounter Visit Diagnoses Not on filedocumented in this encounter Care Teams Magazine Supervisor Relationship Specialty Start Date End Date Compa Sam MD 6812 [facility] [address] [place] [address] PCP - General 12/28/22 Compa Sam MD 6812 [facility] [address] [place] [address] Family Medicine 09/29/22 Quintin Hope MD 1034 [facility] 1280 [place] [address] Nephrology 04/10/24 documented as of this encounter
--- OUTSIDE RECORDS SUMMARY | 2025-08-19 16:35 | XMS_ITS | Encounter Summary ---
Author Organization [facility] Health Address [address] [facility] [place] [address] Care Team Providers Care University Internship Name Role Phone Compa Sam MD Unavailable [phone] Compa Sam MD Primary Care Provider [phone] Quintin Hope MD Unavailable [phone] Encounter Details Date Type Department Care Team (Late st Contact Info) Description 10/18/2024 Lab Requisition [facility] [address] [place] [phone] Quintin Snow MD [facility] [place] [address] Social History Tobacco Use Types Packs/Day Years [...] on file Legal Sex Female 8:35 AM BUILDING STONECUTTER Gender Identity Not on file Sexual Orientation [...] st Contact Info) Description 09/02/2025 3:00 PM BUILDING STONECUTTER Appointment [facility] Health Pain Care [address] [place] [phone] Estee Lindsey, SWIMMING POOL ATTENDANT-PLAN NURSE [address] [facility] [place] [address] 09/22/2025 10:15 AM BUILDING STONECUTTER Appointment [address] [address] Quintin Snow MD [address] [place] [address] [place] [address] 09/22/2025 11:00 AM BUILDING STONECUTTER Appointment [facility] [address] [place] [phone] Quintin Snow MD [address] [facility] [place] [address] documented as of this encounter Goals Goal Patient Goal Type Associated Problems Recent Progress Patient-Stated? Author Blood Pressure < 140/90 Blood Pressure 87/70( 025 9:24 AM BUILDING STONECUTTER) No Lilian Sky RN Medication Management General [...] HLA SPECIMEN Routine 10/10/2024 1:3 8 PM BUILDING STONECUTTER documented in this encounter Results * HOLD HLA SPECIMEN (10/10/2024 1:38 PM BUILDING STONECUTTER) Hold HLA Specimen 10/18/2024 3:00 PM BUILDING STONECUTTER [facility] ([facility]) Comment:The Hold HLA specime n has been received into the lab and will be held for 5 years at 4 degrees. Blood BLOOD SPECIMEN / Unknown 10/10/2024 1:38 PM BUILDING STONECUTTER 10/18/2024 1:38 PM BUILDING STONECUTTER Quintin Snow MD LAB - BLOOD BANK ORDERABLES F inal Result [facility] ([facility]) [address] [place] [address], [facility] documented in this encounter Visit Diagnoses Not on filedocumented in this encounter Care Teams University Internship Relationship Specialty Start Date End Date Compa Sam MD [address] [place] [address] PCP - General 12/28/22 Compa Sam MD [address] [place] [address] Family Medicine 09/29/22 Quintin Hope MD [address] [facility] [address] [place] [address] Nephrology 04/10/24 documented as of this encounter
--- OUTSIDE RECORDS SUMMARY | 2025-08-19 16:35 | XMS_ITS | Encounter Summary ---
Author Organization [facility] Health Address [address] [facility] [place] [address] Care Team Providers Care Salvage Machine Operator Name Role Phone Compa Sam MD Unavailable [phone] Compa Sam MD Primary Care Provider [phone] Quintin Hope MD Unavailable [phone] Encounter Details Date Type Department Care Team (Late st Contact Info) Description 09/15/2023 Lab Requisition [facility] [address] [place] [phone] Quintin Snow MD [facility] [place] [address] Social History Tobacco Use Types Packs/Day Years [...] on file Legal Sex Female 8:35 AM RETURNED GOODS RECEIVING CLERK Gender Identity Not on file Sexual [...] st Contact Info) Description 09/02/2025 3:00 PM RETURNED GOODS RECEIVING CLERK Appointment [facility] [address] [place] [phone] Estee Lindsey, EXECUTIVE DIRECTOR OF MARKETING-LICENSED INSURANCE AGENT [address] [facility] [place] [address] 09/22/2025 10:15 AM RETURNED GOODS RECEIVING CLERK Appointment [place] [address] [place] [address] Quintin Snow MD [address] [place] [address] [place] [address] 09/22/2025 11:00 AM RETURNED GOODS RECEIVING CLERK Appointment [place] [address] [place] [phone] Quintin Snow MD [facility] [place] [address] documented as of this encounter Goals Goal [...] HLA SPECIMEN Routine 09/08/2023 8:0 5 AM RETURNED GOODS RECEIVING CLERK documented in this encounter Results * HOLD HLA SPECIMEN (09/08/2023 8:05 AM RETURNED GOODS RECEIVING CLERK) Hold HLA Specimen 09/15/2023 9:30 AM RETURNED GOODS RECEIVING CLERK [facility] ([facility]) Comment:The Hold HLA specime n has been received into the lab and will be held for 5 years at 4 degrees. Blood BLOOD SPECIMEN / Unknown 09/08/2023 8:05 AM RETURNED GOODS RECEIVING CLERK 09/15/2023 8:05 AM RETURNED GOODS RECEIVING CLERK Quintin Snow MD LAB - BLOOD BANK ORDERABLES F inal Result [facility] ([facility]) [address] [place] [address], [facility] documented in this encounter Visit Diagnoses Not on filedocumented in this encounter Care Teams Salvage Machine Operator Relationship Specialty Start Date End Date Compa Sam MD [address] [place] [address] PCP - General 12/28/22 Compa Sam MD [address] [place] [address] Family Medicine 09/29/22 Quintin Hope MD [address] [facility] [address] [place] [address] Nephrology 04/10/24 documented as of this encounter
--- OUTSIDE RECORDS SUMMARY | 2025-08-19 16:35 | XMS_ITS | Encounter Summary ---
Author Organization [facility] Address [address] [facility] [place] [address] Care Team Providers Care Hospital Nurse Name Role Phone Debbie Middleton Primary Care Provider [phone] Compa Sam MD Primary Care Provider [phone] Debbie Middleton Primary Care Provider [phone] Compa Sam MD Unavailable [phone] Debbie Middleton Primary Care Provider [phone] Compa Sam MD Primary Care Provider [phone] Quintin Hope MD Unavailable [phone] Reason for Visit * Reason Comments Kidney Transplant Follow-up Encounter Details Date Type Department Care Team (Late st Contact Info) Description 05/09/2022 Telephone [facility] - [address] [phone] Samara Auguste, RN Kidney Transplant [...] on file Legal Sex Female 8:35 AM SENIOR UI DESIGNER Gender Identity Not on file Sexual Orientation [...] st Contact Info) Description 09/02/2025 3:00 PM SENIOR UI DESIGNER Appointment [facility] [address] [place] [phone] Estee Lindsey, DRIVER'S LICENSE REVIEWING OFFICER-BAND SCROLL SAW OPERATOR [address] [place] [address].[place] [address] 09/22/2025 10:15 AM SENIOR UI DESIGNER Appointment [address] [phone] Quintin Snow MD [address] [place] [address] [place] [address] 09/22/2025 11:00 AM SENIOR UI DESIGNER Appointment [address] [phone] Quintin Snow MD [address] [place] [address] [place] [address] documented as of this encounter Goals Goal [...] documented as of this encounter Care Teams Hospital Nurse Relationship Specialty Start Date End Date Debbie Middleton APRN-BAND SCROLL SAW OPERATOR PCP - General 10/06/21 08/29/22 Compa Sam MD [address] [address] PCP - General Family Medicine 08/30/22 09/25/22 Debbie Middleton APRN-BAND SCROLL SAW OPERATOR PCP - General 09/26/22 09/28/22 Debbie Middleton APRN-BAND SCROLL SAW OPERATOR PCP - General 10/11/22 12/27/22 Compa Sam MD [address] [place] [address] PCP - General 12/28/22 Compa Sam MD [address] [place] [address] Family Medicine 09/29/22 Quintin Hope MD [address] [facility], [address] [place] [address] Nephrology 04/10/24 documented as of this encounter
--- OUTSIDE RECORDS SUMMARY | 2025-08-19 16:35 | XMS_ITS | Clinical Summary ---
Author Organization [facility] [email or web address] Address [address] [place] [place] [address] Care Team Providers Care Pipe Bowl Paint Trimmer Name Role Phone Compa Sam MD Unavailable [phone] Compa Sam MD Primary Care Provider [phone] Quintin Hope MD Unavailable Source Comments [facility],non-owned Affiliates and Associated Physician Practices is amultiple site organization consisting of ambulatory clinics and hospital sitesin [place], [place], [place] and [place]. This disclosure is being madepursuant to the Care Everywhere program and may not contain all information available regarding this patient. Last updated 18.[facility] Allergies Active Allergy Reactions Criticality Noted Date [...] IV abx, then transition to PO x7d --[facility] order placed 02/22, unlikely available training until [...] coordinator to help fax these instructions to [facility] --No PICC or midline in future [...] coordinator to help fax these instructions to [facility] --No PICC or midline in future --Repeat [...] IV abx, then transition to PO x7d --[facility] order placed 02/22, unlikely available training until [...] taking BOTH nifedipine and diltiazem together. --Cont. nurse's companion metop (increased to BID as prescribed), bumex, Doxazosin qhs --02/18: restart nurse's companion Dilt --02/22: restart nurse's companion Nifedipine (confirmed taking 30 BID at home) [...] taking BOTH nifedipine and diltiazem together. --Cont. nurse's companion metop (increased to BID as prescribed), bumex, Doxazosin qhs --02/18: restart nurse's companion Dilt --02/22: restart nurse's companion Nifedipine (confirmed taking 30 BID at home) [...] taking BOTH nifedipine and diltiazem together. --Cont. nurse's companion metop (increased to BID as prescribed), bumex, Doxazosin qhs --02/18: restart nurse's companion Dilt --02/22: restart nurse's companion Nifedipine (confirmed taking 30 BID at home) [...] taking BOTH nifedipine and diltiazem together. --Cont. nurse's companion metop (increased to BID as prescribed), bumex, Doxazosin qhs --02/18: restart nurse's companion Dilt --02/22: restart nurse's companion Nifedipine (confirmed taking 30 BID at home) Assessment & Plan (02/21/2025 1:07 PM CDT): -Patient has been prescribed Metoprolol Succinate BID (confirmed that it is not daily) for >2 years for what appears to be intermittent sinus tachy. Possibly around dialysis days when on HD. Possible orthostatic mediated given positional sxs when I asked the patient. --Cont. nurse's companion metop (increased to BID as prescribed), bumex, Doxazosin qhs --02/18: restart nurse's companion Dilt --Consider additional agents if persistently SBP >160s Assessment & Plan (02/20/2025 2:40 PM CDT): -Patient has been prescribed Metoprolol Succinate BID (confirmed that it is not daily) for >2 years for what appears to be intermittent sinus tachy. Possibly around dialysis days when on HD. Possible orthostatic mediated given positional sxs when I asked the patient. --Cont. nurse's companion metop (increased to BID as prescribed), bumex, Doxazosin qhs --02/18: restart nurse's companion Dilt --Consider additional agents if persistently SBP >160s Assessment & Plan (02/19/2025 3:20 PM CDT): -Patient has been prescribed Metoprolol Succinate BID (confirmed that it is not daily) for >2 years for what appears to be intermittent sinus tachy. Possibly around dialysis days when on HD. Possible orthostatic mediated given positional sxs when I asked the patient. --Cont. nurse's companion metop (increased to BID as prescribed), bumex, Doxazosin qhs --02/18: restart nurse's companion Dilt --Consider additional agents if persistently SBP >160s Assessment & Plan (02/18/2025 2:21 PM CDT): -Patient has been prescribed Metoprolol Succinate BID (confirmed that it is not daily) for >2 years for what appears to be intermittent sinus tachy. Possibly around dialysis days when on HD. Possible orthostatic mediated given positional sxs when I asked the patient. --Cont. nurse's companion metop (increased to BID as prescribed), bumex, [...] night --CXR 02/17 favors edema vs. pna --First Beater bumex. 1x IV Lasix 40 02/20, 02/21. [...] night --CXR 02/17 favors edema vs. pna --First Beater bumex. 1x IV Lasix 40 02/20, 02/21. [...] night --CXR 02/17 favors edema vs. pna --First Beater bumex. 1x IV Lasix 40 02/20, 02/21. [...] night --CXR 02/17 favors edema vs. pna --First Beater bumex. 1x IV Lasix 40 02/20, 02/21. [...] night --CXR 02/17 favors edema vs. pna --First Beater bumex. 1x IV Lasix 40 02/20. --Will [...] NC --CXR 02/17 favors edema vs. pna --First Beater bumex. 1x IV Lasix 40 02/20. --Will [...] NC --CXR 02/17 favors edema vs. pna --First Beater bumex. Consider 1x IV. --Nocturnal desat study --Consider PT walk study prior to DC --OP sleep study if not previously performed Assessment & Plan (02/18/2025 2:21 PM CDT): Ddx: Unclear. Possibly related to discrete fluid overload (no significant peripheral edema). -On RA satting 87-88%, improved w/ 2L O2 -Currently: 1L NC --CXR 02/17 favors edema vs. pna --First Beater bumex. Consider 1x IV. Assessment & Plan (02/17/2025 5:00 PM CDT): Ddx: Unclear. Possibly related to discrete fluid overload (no significant peripheral edema). -On RA satting 87-88%, improved w/ 2L O2 --Check CXR to r/o PNA given above infectious sxs --First Beater bumex Hyponatremia 02/17/2025 Assessment & Plan (02/24/2025 5:01 PM CDT): -Txp 2018, Rejected 2021, HD via RUE AVF through 09/2023 but had frequent obstructions, switched to PD. Possible prior peritonitis 09/2024 but patient unclear for sure. -Neg w/u: Lactic acid --Transplant nephro consult, transplant kidney U/S unremarkable --Cont. PD --First Beater Calcitriol, Cinacalcet --Phos binder started 02/18, incr [...] consult, transplant kidney U/S unremarkable --Cont. PD --First Beater Calcitriol, Cinacalcet --Phos binder started 02/18, incr [...] transplant kidney U/S unremarkable --Restart PD 02/17 --First Beater Calcitriol, Cinacalcet --Phos binder started 02/18, incr [...] transplant kidney U/S unremarkable --Restart PD 02/17 --First Beater Calcitriol, Cinacalcet --Phos binder started 02/18, incr [...] transplant kidney U/S unremarkable --Restart PD 02/17 --First Beater Calcitriol, Cinacalcet --Phos binder started 02/18, consider [...] transplant kidney U/S unremarkable --Restart PD 02/17 --First Beater Calcitriol, Cinacalcet --Phos binder started 02/18 --Trend labs, replete lytes prn --Patient request liberalization. Assessment & Plan (02/19/2025 3:20 PM CDT): -Txp 2018, Rejected 2021, HD via RUE AVF through 09/2023 but had frequent obstructions, switched to PD. Possible prior peritonitis 09/2024 but patient unclear for sure. -Neg w/u: Lactic acid --Transplant nephro consult, transplant kidney U/S unremarkable --Restart PD 02/17 --First Beater Calcitriol, Cinacalcet --Phos binder started 02/18 --Trend [...] check transplant kidney U/S --Restart PD 02/17 --First Beater Calcitriol, Cinacalcet --Consider phos binder --Trend labs, replete lytes prn --Phos restricted diet. Otherwise patient request liberalization. Assessment & Plan (02/17/2025 5:00 PM CDT): -Txp 2018, Rejected 2021, HD via RUE AVF through 09/2023 but had frequent obstructions, switched to PD. Possible prior peritonitis 09/2024 but patient unclear for sure. -Neg w/u: Lactic acid --Transplant nephro consult --Restart PD 02/17 --First Beater Calcitriol, Cinacalcet --Trend labs High anion gap metabolic acidosis 02/17/2025 Assessment & Plan (02/24/2025 5:01 PM CDT): -Txp 2018, Rejected 2021, HD via RUE AVF through 09/2023 but had frequent obstructions, switched to PD. Possible prior peritonitis 09/2024 but patient unclear for sure. -Neg w/u: Lactic acid --Transplant nephro consult, transplant kidney U/S unremarkable --Cont. PD --First Beater Calcitriol, Cinacalcet --Phos binder started 02/18, incr [...] consult, transplant kidney U/S unremarkable --Cont. PD --First Beater Calcitriol, Cinacalcet --Phos binder started 02/18, incr [...] transplant kidney U/S unremarkable --Restart PD 02/17 --First Beater Calcitriol, Cinacalcet --Phos binder started 02/18, incr [...] transplant kidney U/S unremarkable --Restart PD 02/17 --First Beater Calcitriol, Cinacalcet --Phos binder started 02/18, incr [...] transplant kidney U/S unremarkable --Restart PD 02/17 --First Beater Calcitriol, Cinacalcet --Phos binder started 02/18, consider [...] transplant kidney U/S unremarkable --Restart PD 02/17 --First Beater Calcitriol, Cinacalcet --Phos binder started 02/18 --Trend labs, replete lytes prn --Patient request liberalization. Assessment & Plan (02/19/2025 3:20 PM CDT): -Txp 2018, Rejected 2021, HD via RUE AVF through 09/2023 but had frequent obstructions, switched to PD. Possible prior peritonitis 09/2024 but patient unclear for sure. -Neg w/u: Lactic acid --Transplant nephro consult, transplant kidney U/S unremarkable --Restart PD 02/17 --First Beater Calcitriol, Cinacalcet --Phos binder started 02/18 --Trend [...] check transplant kidney U/S --Restart PD 02/17 --First Beater Calcitriol, Cinacalcet --Consider phos binder --Trend labs, replete lytes prn --Phos restricted diet. Otherwise patient request liberalization. Assessment & Plan (02/17/2025 5:00 PM CDT): -Txp 2018, Rejected 2021, HD via RUE AVF through 09/2023 but had frequent obstructions, switched to PD. Possible prior peritonitis 09/2024 but patient unclear for sure. -Neg w/u: Lactic acid --Transplant nephro consult --Restart PD 02/17 --First Beater Calcitriol, Cinacalcet --Trend labs Hyperphosphatemia 02/17/2025 Assessment & Plan (02/24/2025 5:01 PM CDT): -Txp 2018, Rejected 2021, HD via RUE AVF through 09/2023 but had frequent obstructions, switched to PD. Possible prior peritonitis 09/2024 but patient unclear for sure. -Neg w/u: Lactic acid --Transplant nephro consult, transplant kidney U/S unremarkable --Cont. PD --First Beater Calcitriol, Cinacalcet --Phos binder started 02/18, incr [...] consult, transplant kidney U/S unremarkable --Cont. PD --First Beater Calcitriol, Cinacalcet --Phos binder started 02/18, incr [...] transplant kidney U/S unremarkable --Restart PD 02/17 --First Beater Calcitriol, Cinacalcet --Phos binder started 02/18, incr [...] transplant kidney U/S unremarkable --Restart PD 02/17 --First Beater Calcitriol, Cinacalcet --Phos binder started 02/18, incr [...] transplant kidney U/S unremarkable --Restart PD 02/17 --First Beater Calcitriol, Cinacalcet --Phos binder started 02/18, consider [...] transplant kidney U/S unremarkable --Restart PD 02/17 --First Beater Calcitriol, Cinacalcet --Phos binder started 02/18 --Trend labs, replete lytes prn --Patient request liberalization. Assessment & Plan (02/19/2025 3:20 PM CDT): -Txp 2018, Rejected 2021, HD via RUE AVF through 09/2023 but had frequent obstructions, switched to PD. Possible prior peritonitis 09/2024 but patient unclear for sure. -Neg w/u: Lactic acid --Transplant nephro consult, transplant kidney U/S unremarkable --Restart PD 02/17 --First Beater Calcitriol, Cinacalcet --Phos binder started 02/18 --Trend [...] check transplant kidney U/S --Restart PD 02/17 --First Beater Calcitriol, Cinacalcet --Consider phos binder --Trend labs, replete lytes prn --Phos restricted diet. Otherwise patient request liberalization. Assessment & Plan (02/17/2025 5:00 PM CDT): -Txp 2018, Rejected 2021, HD via RUE AVF through 09/2023 but had frequent obstructions, switched to PD. Possible prior peritonitis 09/2024 but patient unclear for sure. -Neg w/u: Lactic acid --Transplant nephro consult --Restart PD 02/17 --First Beater Calcitriol, Cinacalcet --Trend labs Hypoalbuminemia 02/17/2025 Assessment [...] IV abx, then transition to PO x7d --[facility] order placed 02/22, unlikely available training until [...] consult, transplant kidney U/S unremarkable --Cont. PD --First Beater Calcitriol, Cinacalcet --Phos binder started 02/18, incr [...] consult, transplant kidney U/S unremarkable --Cont. PD --First Beater Calcitriol, Cinacalcet --Phos binder started 02/18, incr [...] transplant kidney U/S unremarkable --Restart PD 02/17 --First Beater Calcitriol, Cinacalcet --Phos binder started 02/18, incr [...] transplant kidney U/S unremarkable --Restart PD 02/17 --First Beater Calcitriol, Cinacalcet --Phos binder started 02/18, incr [...] transplant kidney U/S unremarkable --Restart PD 02/17 --First Beater Calcitriol, Cinacalcet --Phos binder started 02/18, consider [...] transplant kidney U/S unremarkable --Restart PD 02/17 --First Beater Calcitriol, Cinacalcet --Phos binder started 02/18 --Trend labs, replete lytes prn --Patient request liberalization. Assessment & Plan (02/19/2025 3:20 PM CDT): -Txp 2018, Rejected 2021, HD via RUE AVF through 09/2023 but had frequent obstructions, switched to PD. Possible prior peritonitis 09/2024 but patient unclear for sure. -Neg w/u: Lactic acid --Transplant nephro consult, transplant kidney U/S unremarkable --Restart PD 02/17 --First Beater Calcitriol, Cinacalcet --Phos binder started 02/18 --Trend [...] check transplant kidney U/S --Restart PD 02/17 --First Beater Calcitriol, Cinacalcet --Consider phos binder --Trend labs, replete lytes prn --Phos restricted diet. Otherwise patient request liberalization. Assessment & Plan (02/17/2025 5:00 PM CDT): -Txp 2018, Rejected 2021, HD via RUE AVF through 09/2023 but had frequent obstructions, switched to PD. Possible prior peritonitis 09/2024 but patient unclear for sure. -Neg w/u: Lactic acid --Transplant nephro consult --Restart PD 02/17 --First Beater Calcitriol, Cinacalcet --Trend labs Gastroesophageal reflux disease [...] & Plan (02/24/2025 5:01 PM CDT): --Cont. nurse's companion Trazodone --02/22: DC Temazepam as no longer taking, add Flexeril for nocturnal cramps Assessment & Plan (02/24/2025 4:07 PM CDT): --Cont. nurse's companion Trazodone --02/22: DC Temazepam as no longer taking, add Flexeril for nocturnal cramps Assessment & Plan (02/23/2025 2:17 PM CDT): --Cont. nurse's companion Trazodone --02/22: DC Temazepam as no longer taking, add Flexeril for nocturnal cramps Assessment & Plan (02/22/2025 2:59 PM CDT): --Cont. nurse's companion Trazodone --02/22: DC Temazepam as no longer taking, add Flexeril for nocturnal cramps Assessment & Plan (02/21/2025 1:07 PM CDT): --Cont. nurse's companion Trazodone, Temazepam Assessment & Plan (02/20/2025 2:40 PM CDT): --Cont. nurse's companion Trazodone, Temazepam Assessment & Plan (02/19/2025 2:36 PM CDT): --Cont. nurse's companion Trazodone, Temazepam Assessment & Plan (02/18/2025 2:21 PM CDT): --Cont. nurse's companion Trazodone, Temazepam Assessment & Plan (02/17/2025 5:00 PM CDT): --Cont. nurse's companion Trazodone, Temazepam Peritonitis 02/16/2025 Assessment & Plan [...] coordinator to help fax these instructions to [facility] --No PICC or midline in future [...] coordinator to help fax these instructions to [facility] --No PICC or midline in future [...] IV abx, then transition to PO x7d --[facility] order placed 02/22, unlikely available training until [...] consult, transplant kidney U/S unremarkable --Cont. PD --First Beater Calcitriol, Cinacalcet --Phos binder started 02/18, incr [...] consult, transplant kidney U/S unremarkable --Cont. PD --First Beater Calcitriol, Cinacalcet --Phos binder started 02/18, incr [...] transplant kidney U/S unremarkable --Restart PD 02/17 --First Beater Calcitriol, Cinacalcet --Phos binder started 02/18, incr [...] transplant kidney U/S unremarkable --Restart PD 02/17 --First Beater Calcitriol, Cinacalcet --Phos binder started 02/18, incr [...] transplant kidney U/S unremarkable --Restart PD 02/17 --First Beater Calcitriol, Cinacalcet --Phos binder started 02/18, consider [...] transplant kidney U/S unremarkable --Restart PD 02/17 --First Beater Calcitriol, Cinacalcet --Phos binder started 02/18 --Trend labs, replete lytes prn --Patient request liberalization. Assessment & Plan (02/19/2025 3:20 PM CDT): -Txp 2018, Rejected 2021, HD via RUE AVF through 09/2023 but had frequent obstructions, switched to PD. Possible prior peritonitis 09/2024 but patient unclear for sure. -Neg w/u: Lactic acid --Transplant nephro consult, transplant kidney U/S unremarkable --Restart PD 02/17 --First Beater Calcitriol, Cinacalcet --Phos binder started 02/18 --Trend [...] check transplant kidney U/S --Restart PD 02/17 --First Beater Calcitriol, Cinacalcet --Consider phos binder --Trend labs, replete lytes prn --Phos restricted diet. Otherwise patient request liberalization. Assessment & Plan (02/17/2025 5:00 PM CDT): -Txp 2018, Rejected 2021, HD via RUE AVF through 09/2023 but had frequent obstructions, switched to PD. Possible prior peritonitis 09/2024 but patient unclear for sure. -Neg w/u: Lactic acid --Transplant nephro consult --Restart PD 02/17 --First Beater Calcitriol, Cinacalcet --Trend labs Sinus tachycardia 01/17/2023 [...] were not included. Brandy Smith 1960 Referring Food Checker: Quintin Hpoe Listing Date: 05/10/2023 Dialysis Info: Type: HD M,W,F Time: 06/16/2022 Blood Type: O POS Body mass index is 31.76 kg/m . ALERTS Listed for Hep C kidneys Induction Method: Immunosuppression Induction Method/Plan: Antithymocyte globulin (rabbit) (Thymoglobulin) 5 mg/kg Masonry Contractor Administrator: Dr. 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 Prior to that was Urosepsis? 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 Cameron at [facility] Esophageal reflux ESRD on hemodialysis (CMS/HCC) Gallstones H/O kidney removal 1959 right for a tumor Hematuria History of blood transfusion Hypercholesteremia Hyperparathyroidism (CMS/HCC) partial thyroidectomy at age 39, adenoma Hypertension dx'd in 2007 Kidney transplant recipient 10/13/2018 left side placement, LURD, received at [facility] PONV (postoperative nausea and vomiting) [...] Renal Biopsy multiple s/p kidney txp, [facility] (x2) and the rest here at [facility] VASCULAR PROCEDURE/SURGERY Right 10/13/2022 Right; [...] shows significant improvement in EF. She saw Manager Landscape 10/25/24. - PTH needs to be < [...] obesity, hyperparathyroidism and CAD. Fred Jo MD strategic marketing associate Transplant & [facility] Surgery Transplant Surgery Clinic Appt w/: Dr. Hollins Date: 01/15/2024 Assessment & Plan: 63 y/o F pt w/ complicated hx including Wilms tumor requiring R nephrectomy in , Renal txp in 2018 c/b graft failure, Overall acceptable candidate for transplant Plan Discussed different types donors including LDs,HCV + Blood Ryan Hollins MD hostess party sales representative Transplant Surgery Clinic Appt w/: Dr. Benjamin Date: 10/25/2022 Nephrology Clinic Appt w/: Dr. Edmond Date: 10/25/2022 HPI: Patient is a 62 year old white female with history of ESRD 2/2 unknown etiology; now s/p living unrelated donor transplant from her 10/13/2018 which was done at [facility] ( ). This was HLA 2 [...] the Tacrolimus dosing ( according to Dr. Loernzo, her payroll processor). Eventually MPA was reduced to 360 mg [...] living donor transplant is being considered. Ms. Simth also has hx of skin cancer ( [...] of her kidney disease is: Rejection. Her [place] kidney disease is still undetermined. I [...] followup in PRN. Rina Tracy PA-C Physician Senior Integration Developer in Internal Medicine Bassam Moran MD Professor of Internal Medicine No orders of the defined types were placed in this encounter. Nephrology: 04/18/[address] 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 This was HLA 2 [...] dosing ( according to Dr. Lorenzo, her payroll processor). Eventually MPA was reduced to 360 mg [...] to volume overload & HTN. Discontinue Belatacept. Nursing Home Immunosuppression Use Currently on: Belatacept monthly as [...] neurological changes CT HEAD WO CONTRAST Order: [id number] Status: Final result Visible to patient: Yes (seen) Next appt: 12/20/2022 at 10:20 AM in Transplant ([facility] TXP SURG 302) Dx: Acute nonintractable headache, unspec... 0 Result Notes Details Reading Physician Reading Date Result Priority Dwain Alcala MD [phone] 10/21/2021 Richy John DO [phone] 10/21/2021 Narrative & Impression EXAMINATION: CT OF [...] internal capsule. Dictated by Richy John D.O. (Chief Security Officer) I, Dr. DWAIN ALCALA have personally reviewed [...] follows q 3-[address] Foreman [facility] path reports: Pathology: Cardiology: 10/25/2024 HPI [...] demonstrated. Electronically Signed By: Vishal Pittman MD, [facility] 2024-12-29 4:16:59 PM CDT Holter monitor: [...] No sustained arrhythmias. Pertinent Previous Committee Presentations: [facility] 03/13/2025 Committee Review Decision: Make [...] to make active on the wait list. [facility] 10/10/2024 Committee Review Decision: Make Inactive Prior Transplants: N/A EPTS: 88 at 10/10/2024 12:47 PM Calculated from: Age: 64 years Has Diabetes: Yes Prior solid organ transplant: No Dialysis: 2 years 3 months Committee Discussion Details: Pt presented to review recent hospitalization at [place]. Pt treated for Sepsis infection. Reviewed positive blood cultures for Staph aureus. Reviewed Echo and LHC results. Echo shows EF 30-35%, Takotsubo cardiomyopathy (Broken Heart syndrome). LHC report shows no CAD yet NSTEMI (EF 50%). Per team, make inactive for 3 months. Pt will need Cardiac clearance then repeat Echo and represent. [facility] 04/11/2024 Committee Review Decision: Remain Active Prior Transplants: N/A EPTS: 84 at 04/11/2024 1:23 PM Calculated from: Age: 64 years Has Diabetes: Yes Prior solid organ transplant: No Dialysis: 1 year 9 months Committee Discussion Details: Pt presented at [facility] for Hep C kidney listing. [...] Method/Plan: Antithymocyte globulin (rabbit) (Thymoglobulin) 5 mg/kg [facility] note: 04/13/2023 Induction Method: Immunosuppression Induction Method/Plan: Antithymocyte globulin (rabbit) (Thymoglobulin) 3 mg/kg *pt still on belatacept, will get repeat DSAs once off, may need to change induction plan* Committee Discussion Details: Pt's case presented at [facility] today for approval to list. [...] Committee Discussion Details: Pt's case presented at [facility] to discuss her candidacy for [...] will be reported in an addendum. at [id number] Microscopic Description and Comment 1 H&E, 1 [...] segmental glomerulosclerosis (FSGS). Previous renal allograft biopsy ([id number]) showed light microscopic findings consistent with acute [...] glomerular basement membrane label. Fibrinogen: Nonspecific label. [place]: 3+ cast label. Lambda: 3+ cast label. Addendum 1 Electron Microscopy: [id number]. Ega-pumobpdbay-iijtv, avipazman-jrzv-fntjqnt sections of five blocks are reviewed; one [...] glomerular basement membrane label. Fibrinogen: Nonspecific label. [place]: 3+ cast label. Lambda: 3+ cast label. C4d: Negative paratubular capillary label. Addendum 1 Electron Microscopy: [id number]. Ikd-jojwxgevkf-qrtcc, czjesshyz-yjla-iizlrcr sections of two blocks are reviewed; one is selected for ultrastructural analysis. Transmission electron microscopic analysis of a single glomerulus shows moderate effacement of visceral epithelial foot processes, reduced endothelial fenestrations, a moderate increase in mesangial matrix, and segmental mesangial interposition. 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 Kidney allograft bx: Completed at [facility] (14 days post txp) EK03/25/2023 Component Ref Range & Units 7 mo ago Heart Rate bpm 77 CO Interval ms 187 P [place] deg 30 QRS Interval ms 89 QT Interval ms 418 QTcB (Best for HR 60-90 bpm) ms 475 QTCf ms 454 QRS [place] deg 19 T Wave [place] deg 27 EKG Impression - NORMAL ECG [...] size. Limited Echo for EF: 11/21/2024 ([facility]) CONCLUSIONS: Normal left ventricular systolic function with [...] dobutamine induced wall motion abnormalities. C: 09/27/2024 [facility]: 07/12/2018 CXR: 12/24/2024 IMPRESSION: Left chest port [...] nondilated. Normal spleen and adrenal glands. The [place] right kidney is absent. There is cystic degeneration of the [place] left kidney with innumerable simple and [...] IPMN seen on MRI Angio completed at [facility] in 04/2022 COMPARISON: MRI angiography [...] hemorrhagic cysts are present throughout the left [place] kidney. A single left renal artery is present and normal in caliber. There is no [place] right kidney Transplant kidney in the [...] Dates: None Previous Recommendations: None Presenter: Sourav Critical Care Specialist: None Interventional Radiologist: None Surgeon: Sourav Transplant [...] intensity cysts are present throughout the left [place] kidney. The right kidney is not [...] Tumor Board follow up: 04/06/2023 Presenter: Sourav Critical Care Specialist: Missy Interventional Radiologist: None Surgeon: Sourav Transplant [...] intensity cysts are present throughout the left [place] kidney suggestive of hemorrhagic/proteinaceous content. Some [...] Next colonoscopy was done on 01/20/25 at [place] but prep not sufficient. They are rescheduling her in 6 mo with 2 day prep. Mammogram: 06/19/2024 Pap: GIGI with SBO 11/21/2000 - records scanned in under media Pathology: Panorex/Dental: SW: 12/31/2024 Clinical Social Work Impression: It is the impression of this social work manager that Brandy Smith has several positive factors for Kidney transplant candidacy from a psychosocial perspective. Patient appears to have appropriate knowledge of illness. Patient has sufficient insurance coverage and stable financial situation for post transplant needs. No concerns regarding substance abuse, legal issues, or mental health needs. Patient has adequate support system and appropriate discharge plan. Plan: residential worker to provide supportive services as needed. Patient remains a reasonable candidate for transplant from a psychosocial perspective. Psychiatric Consult Recommended: No Transplant Vp Scientific Affairs: Naima Rocha LMSW Abdominal Transplant Vp Scientific Affairs [phone] Annual Transplant Caregiver Confirmation Note Caregiver Confirmation Date Primary Name of Primary: Mike Smith Relationship: Spouse - Confirmed during initial assessment - [employer] form received on 12/22/22 Secondary Name of [...] & Plan (02/24/2025 5:01 PM CDT): --Cont. nurse's companion ASA, statin Assessment & Plan (02/24/2025 4:07 PM CDT): --Cont. nurse's companion ASA, statin Assessment & Plan (02/23/2025 2:17 PM CDT): --Cont. nurse's companion ASA, statin Assessment & Plan (02/22/2025 2:59 PM CDT): --Cont. nurse's companion ASA, statin Assessment & Plan (02/21/2025 1:07 PM CDT): --Cont. nurse's companion ASA, statin Assessment & Plan (02/20/2025 2:40 PM CDT): --Cont. nurse's companion ASA, statin Assessment & Plan (02/19/2025 2:36 PM CDT): --Cont. nurse's companion ASA, statin Assessment & Plan (02/18/2025 2:21 PM CDT): --Cont. nurse's companion ASA, statin Assessment & Plan (02/17/2025 5:00 PM CDT): --Cont. nurse's companion ASA, statin Assessment & Plan (01/17/2023 10:59 PM CDT): Continue statin Assessment & Plan (08/30/2022 4:54 PM MEDICAL AND SCIENTIFIC ILLUSTRATOR): Continue rosuvastatin Failed kidney transplant 06/06/2022 Hyperuricemia 05/11/2022 Assessment & Plan (02/24/2025 5:01 PM CDT): --Cont. nurse's companion Allopurinol Assessment & Plan (02/24/2025 4:07 PM CDT): --Cont. nurse's companion Allopurinol Assessment & Plan (02/23/2025 2:17 PM CDT): --Cont. nurse's companion Allopurinol Assessment & Plan (02/22/2025 2:59 PM CDT): --Cont. nurse's companion Allopurinol Assessment & Plan (02/21/2025 1:07 PM CDT): --Cont. nurse's companion Allopurinol Assessment & Plan (02/20/2025 2:40 PM CDT): --Cont. nurse's companion Allopurinol Assessment & Plan (02/19/2025 2:36 PM CDT): --Cont. nurse's companion Allopurinol Assessment & Plan (02/18/2025 2:21 PM CDT): --Cont. nurse's companion Allopurinol Assessment & Plan (02/17/2025 5:00 PM CDT): --Cont. nurse's companion Allopurinol Anemia of renal disease 05/11/2022 Assessment [...] consult, transplant kidney U/S unremarkable --Cont. PD --First Beater Calcitriol, Cinacalcet --Phos binder started 02/18, incr [...] consult, transplant kidney U/S unremarkable --Cont. PD --First Beater Calcitriol, Cinacalcet --Phos binder started 02/18, incr [...] transplant kidney U/S unremarkable --Restart PD 02/17 --First Beater Calcitriol, Cinacalcet --Phos binder started 02/18, incr [...] transplant kidney U/S unremarkable --Restart PD 02/17 --First Beater Calcitriol, Cinacalcet --Phos binder started 02/18, incr [...] transplant kidney U/S unremarkable --Restart PD 02/17 --First Beater Calcitriol, Cinacalcet --Phos binder started 02/18, consider [...] transplant kidney U/S unremarkable --Restart PD 02/17 --First Beater Calcitriol, Cinacalcet --Phos binder started 02/18 --Trend labs, replete lytes prn --Patient request liberalization. Assessment & Plan (02/19/2025 3:20 PM CDT): -Txp 2018, Rejected 2021, HD via RUE AVF through 09/2023 but had frequent obstructions, switched to PD. Possible prior peritonitis 09/2024 but patient unclear for sure. -Neg w/u: Lactic acid --Transplant nephro consult, transplant kidney U/S unremarkable --Restart PD 02/17 --First Beater Calcitriol, Cinacalcet --Phos binder started 02/18 --Trend [...] check transplant kidney U/S --Restart PD 02/17 --First Beater Calcitriol, Cinacalcet --Consider phos binder --Trend labs, replete lytes prn --Phos restricted diet. Otherwise patient request liberalization. Assessment & Plan (02/17/2025 5:00 PM CDT): -Txp 2018, Rejected 2021, HD via RUE AVF through 09/2023 but had frequent obstructions, switched to PD. Possible prior peritonitis 09/2024 but patient unclear for sure. -Neg w/u: Lactic acid --Transplant nephro consult --Restart PD 02/17 --First Beater Calcitriol, Cinacalcet --Trend labs Orthostatic hypotension 10/27/2021 Type 2 diabetes mellitus wit h diabetic chronic kidney disease, unspecified CKD stage, unspecified whether terminal manager insulin use 10/20/2021 Assessment & Plan (02/24/2025 5:01 PM CDT): -Recent A1c 6.9 (12/2024) --Hold nurse's companion sitagliptin --Cont. SSI 0-12 --02/19: Lantus 5, aspart 4 TID AC --02/20: Lantus 8 --02/21: Lantus 10 --02/22: Lantus 12 --02/23: Lantus 15, aspart 6 TID AC --Resume home meds on DC Assessment & Plan (02/24/2025 4:07 PM CDT): --Hold nurse's companion sitagliptin --Cont. SSI 0-12 --02/19: Lantus 5, aspart 4 TID AC --02/20: Lantus 8 --02/21: Lantus 10 --02/22: Lantus 12 --02/23: Lantus 15, aspart 6 TID AC Assessment & Plan (02/23/2025 2:17 PM CDT): --Hold nurse's companion sitagliptin --Cont. SSI 0-12 --02/19: Lantus 5, aspart 4 TID AC --02/20: Lantus 8 --02/21: Lantus 10 --02/22: Lantus 12 --02/23: Lantus 15, aspart 6 TID AC Assessment & Plan (02/22/2025 2:59 PM CDT): --Hold nurse's companion sitagliptin --Cont. SSI 0-12 --02/19: Lantus 5, aspart 4 TID AC --02/20: Lantus 8 --02/21: Lantus 10 --02/22: Lantus 12 Assessment & Plan (02/21/2025 1:16 PM CDT): --Hold nurse's companion sitagliptin --Cont. SSI 0-12 --02/19: Lantus 5, aspart 4 TID AC --02/20: Lantus 8 --02/21: Lantus 10 Assessment & Plan (02/20/2025 2:40 PM CDT): --Hold nurse's companion sitagliptin --Cont. SSI 0-12 --02/19: Lantus 5, aspart 4 TID AC --02/20: Lantus 8 Assessment & Plan (02/19/2025 3:20 PM CDT): --Hold nurse's companion sitagliptin --Cont. SSI 0-12 --02/19: Lantus 5, aspart 4 TID AC Assessment & Plan (02/18/2025 2:21 PM CDT): --Hold nurse's companion sitagliptin --Cont. SSI 0-12 Assessment & Plan (02/17/2025 5:00 PM CDT): --Hold nurse's companion sitagliptin --Cont. SSI 0-12 Hyperparathyroidism 10/20/2021 Assessment & Plan (02/24/2025 5:01 PM CDT): -Txp 2018, Rejected 2021, HD via RUE AVF through 09/2023 but had frequent obstructions, switched to PD. Possible prior peritonitis 09/2024 but patient unclear for sure. -Neg w/u: Lactic acid --Transplant nephro consult, transplant kidney U/S unremarkable --Cont. PD --First Beater Calcitriol, Cinacalcet --Phos binder started 02/18, incr [...] consult, transplant kidney U/S unremarkable --Cont. PD --First Beater Calcitriol, Cinacalcet --Phos binder started 02/18, incr [...] transplant kidney U/S unremarkable --Restart PD 02/17 --First Beater Calcitriol, Cinacalcet --Phos binder started 02/18, incr [...] transplant kidney U/S unremarkable --Restart PD 02/17 --First Beater Calcitriol, Cinacalcet --Phos binder started 02/18, incr [...] transplant kidney U/S unremarkable --Restart PD 02/17 --First Beater Calcitriol, Cinacalcet --Phos binder started 02/18, consider [...] transplant kidney U/S unremarkable --Restart PD 02/17 --First Beater Calcitriol, Cinacalcet --Phos binder started 02/18 --Trend labs, replete lytes prn --Patient request liberalization. Assessment & Plan (02/19/2025 3:20 PM CDT): -Txp 2018, Rejected 2021, HD via RUE AVF through 09/2023 but had frequent obstructions, switched to PD. Possible prior peritonitis 09/2024 but patient unclear for sure. -Neg w/u: Lactic acid --Transplant nephro consult, transplant kidney U/S unremarkable --Restart PD 02/17 --First Beater Calcitriol, Cinacalcet --Phos binder started 02/18 --Trend [...] check transplant kidney U/S --Restart PD 02/17 --First Beater Calcitriol, Cinacalcet --Consider phos binder --Trend labs, replete lytes prn --Phos restricted diet. Otherwise patient request liberalization. Assessment & Plan (02/17/2025 5:00 PM CDT): -Txp 2018, Rejected 2021, HD via RUE AVF through 09/2023 but had frequent obstructions, switched to PD. Possible prior peritonitis 09/2024 but patient unclear for sure. -Neg w/u: Lactic acid --Transplant nephro consult --Restart PD 02/17 --First Beater Calcitriol, Cinacalcet --Trend labs Stage 3b chronic kidney disease with nephrotic s yndrome 10/20/2021 Overview (05/11/2022): Baseline SCr: 1.8-2.0, 2.2, 2.7, 3.7, 3.1, 3.8 UPC: 2, 5, 8.2, 11.4, 11.9 g/g Parathyroid adenoma 09/21/2021 History of gout 09/21/2021 Assessment & Plan (02/24/2025 5:01 PM CDT): --Cont. nurse's companion Allopurinol Assessment & Plan (02/24/2025 4:07 PM CDT): --Cont. nurse's companion Allopurinol Assessment & Plan (02/23/2025 2:17 PM CDT): --Cont. nurse's companion Allopurinol Assessment & Plan (02/22/2025 2:59 PM CDT): --Cont. nurse's companion Allopurinol Assessment & Plan (02/21/2025 1:07 PM CDT): --Cont. nurse's companion Allopurinol Assessment & Plan (02/20/2025 2:40 PM CDT): --Cont. nurse's companion Allopurinol Assessment & Plan (02/19/2025 2:36 PM CDT): --Cont. nurse's companion Allopurinol Assessment & Plan (02/18/2025 2:21 PM CDT): --Cont. nurse's companion Allopurinol Assessment & Plan (02/17/2025 5:00 PM CDT): --Cont. nurse's companion Allopurinol Kidney transplanted, S/P LUR-TXP in 10/13/2018 [...] consult, transplant kidney U/S unremarkable --Cont. PD --First Beater Calcitriol, Cinacalcet --Phos binder started 02/18, incr [...] consult, transplant kidney U/S unremarkable --Cont. PD --First Beater Calcitriol, Cinacalcet --Phos binder started 02/18, incr [...] transplant kidney U/S unremarkable --Restart PD 02/17 --First Beater Calcitriol, Cinacalcet --Phos binder started 02/18, incr [...] transplant kidney U/S unremarkable --Restart PD 02/17 --First Beater Calcitriol, Cinacalcet --Phos binder started 02/18, incr [...] transplant kidney U/S unremarkable --Restart PD 02/17 --First Beater Calcitriol, Cinacalcet --Phos binder started 02/18, consider [...] transplant kidney U/S unremarkable --Restart PD 02/17 --First Beater Calcitriol, Cinacalcet --Phos binder started 02/18 --Trend labs, replete lytes prn --Patient request liberalization. Assessment & Plan (02/19/2025 3:20 PM CDT): -Txp 2018, Rejected 2021, HD via RUE AVF through 09/2023 but had frequent obstructions, switched to PD. Possible prior peritonitis 09/2024 but patient unclear for sure. -Neg w/u: Lactic acid --Transplant nephro consult, transplant kidney U/S unremarkable --Restart PD 02/17 --First Beater Calcitriol, Cinacalcet --Phos binder started 02/18 --Trend [...] check transplant kidney U/S --Restart PD 02/17 --First Beater Calcitriol, Cinacalcet --Consider phos binder --Trend labs, replete lytes prn --Phos restricted diet. Otherwise patient request liberalization. Assessment & Plan (02/17/2025 5:00 PM CDT): -Txp 2018, Rejected 2021, HD via RUE AVF through 09/2023 but had frequent obstructions, switched to PD. Possible prior peritonitis 09/2024 but patient unclear for sure. -Neg w/u: Lactic acid --Transplant nephro consult --Restart PD 02/17 --First Beater Calcitriol, Cinacalcet --Trend labs Hypertension 11/19/2020 Assessment [...] taking BOTH nifedipine and diltiazem together. --Cont. nurse's companion metop (increased to BID as prescribed), bumex, Doxazosin qhs --02/18: restart nurse's companion Dilt --02/22: restart nurse's companion Nifedipine (confirmed taking 30 BID at home) [...] taking BOTH nifedipine and diltiazem together. --Cont. nurse's companion metop (increased to BID as prescribed), bumex, Doxazosin qhs --02/18: restart nurse's companion Dilt --02/22: restart nurse's companion Nifedipine (confirmed taking 30 BID at home) [...] taking BOTH nifedipine and diltiazem together. --Cont. nurse's companion metop (increased to BID as prescribed), bumex, Doxazosin qhs --02/18: restart nurse's companion Dilt --02/22: restart nurse's companion Nifedipine (confirmed taking 30 BID at home) [...] taking BOTH nifedipine and diltiazem together. --Cont. nurse's companion metop (increased to BID as prescribed), bumex, Doxazosin qhs --02/18: restart nurse's companion Dilt --02/22: restart nurse's companion Nifedipine (confirmed taking 30 BID at home) Assessment & Plan (02/21/2025 1:07 PM CDT): -Patient has been prescribed Metoprolol Succinate BID (confirmed that it is not daily) for >2 years for what appears to be intermittent sinus tachy. Possibly around dialysis days when on HD. Possible orthostatic mediated given positional sxs when I asked the patient. --Cont. nurse's companion metop (increased to BID as prescribed), bumex, Doxazosin qhs --02/18: restart nurse's companion Dilt --Consider additional agents if persistently SBP >160s Assessment & Plan (02/20/2025 2:40 PM CDT): -Patient has been prescribed Metoprolol Succinate BID (confirmed that it is not daily) for >2 years for what appears to be intermittent sinus tachy. Possibly around dialysis days when on HD. Possible orthostatic mediated given positional sxs when I asked the patient. --Cont. nurse's companion metop (increased to BID as prescribed), bumex, Doxazosin qhs --02/18: restart nurse's companion Dilt --Consider additional agents if persistently SBP >160s Assessment & Plan (02/19/2025 3:20 PM CDT): -Patient has been prescribed Metoprolol Succinate BID (confirmed that it is not daily) for >2 years for what appears to be intermittent sinus tachy. Possibly around dialysis days when on HD. Possible orthostatic mediated given positional sxs when I asked the patient. --Cont. nurse's companion metop (increased to BID as prescribed), bumex, Doxazosin qhs --02/18: restart nurse's companion Dilt --Consider additional agents if persistently SBP >160s Assessment & Plan (02/18/2025 2:21 PM CDT): -Patient has been prescribed Metoprolol Succinate BID (confirmed that it is not daily) for >2 years for what appears to be intermittent sinus tachy. Possibly around dialysis days when on HD. Possible orthostatic mediated given positional sxs when I asked the patient. --Cont. nurse's companion metop (increased to BID as prescribed), bumex, Doxazosin qhs --Consider additional agents if persistently SBP >160s Assessment & Plan (02/17/2025 5:00 PM CDT): --Cont. nurse's companion metop, bumex --Restart Doxazosin qhs Assessment & Plan (01/17/2023 10:59 PM CDT): BP in clinic today is appropriate. Continue current management. 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 nurse's companion ASA, statin Assessment & Plan (02/24/2025 4:07 PM CDT): --Cont. nurse's companion ASA, statin Assessment & Plan (02/23/2025 2:17 PM CDT): --Cont. nurse's companion ASA, statin Assessment & Plan (02/22/2025 2:59 PM CDT): --Cont. nurse's companion ASA, statin Assessment & Plan (02/21/2025 1:07 PM CDT): --Cont. nurse's companion ASA, statin Assessment & Plan (02/20/2025 2:40 PM CDT): --Cont. nurse's companion ASA, statin Assessment & Plan (02/19/2025 2:36 PM CDT): --Cont. nurse's companion ASA, statin Assessment & Plan (02/18/2025 2:21 PM CDT): --Cont. nurse's companion ASA, statin Assessment & Plan (02/17/2025 5:00 PM CDT): --Cont. nurse's companion ASA, statin Primary localized osteoarthrosis of lower leg Primary osteoarthritis of right shoulder Long-term use of immunosuppressant medication Resolved Problems Problem Noted Date Diagnosed Date Resolved Date Preoperative examination 08/30/2022 Assessment & Plan (08/30/2022 4:53 PM MEDICAL AND SCIENTIFIC ILLUSTRATOR): Principal issue for the consultation today. 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 Chronic pain of both shoulders (Primary Dx); Primary osteoarthritis involving multiple joints 08/04/2025 Travel 07/16/2025 Telephone [facility] [address] [place] [phone] Elvia Alaniz [facility] Kidney Transplant Evaluation 07/16/2025 Telephone [facility] [address] [place] [phone] Lilian Sky RN Kidney Transplant Evaluation 07/01/2025 12:01 PM CDT - 07/01/2025 11:59 PM CDT Hospital Encounter [facility] - Radiology [address] [place] [id number] Jr Obregon MD Discharge Disposition: Home or Self Care 07/01/2025 11:55 AM CDT - 07/01/2025 12:00 PM CDT Hospital Encounter [facility] - Radiology [address] [place] [id number] Jr Obregon MD Discharge Disposition: Home or Self Care 07/01/2025 10:58 AM CDT - 07/01/2025 11:54 AM CDT Hospital Encounter [facility] Pain [facility] [address] [place] [phone] Discharge Disposition: Home or Self Care 06/10/2025 Orders Only [facility] [address] [place] [phone] Jr Obregon MD Primary osteoarthritis of both knees 06/09/2025 Lab Requisition [facility] [address] [place] [phone] Quintin Snow MD 05/28/2025 Refill [facility] - Nephrology [address] [place] [phone] Reva Edmond MD Refill Request 05/21/2025 Refill [facility] [address] [place] [phone] Abhi Jackson MD Refill Request from Last 3 Months Immunizations Immunization Administration [...] Date Recorded PHQ2 TOTAL SCORE 0 12/14/2021 [facility] [place] [facility] - Occupational Stress [...] time in the past 12 m [facility], were you homeless or living in a penitentiary (including now)? No 02/19/2025 Comments No Sex and Gender Information Value Date Recorded Sex Assigned at Not on file Legal Sex Female 8:35 AM MEDICAL AND SCIENTIFIC ILLUSTRATOR Gender Identity Not on file Sexual Orientation Not on file Last Filed Vital Signs Vital Sign Reading Time Taken Comments Blood Pressure 87/70 08/04/2025 9:24 AM MEDICAL AND SCIENTIFIC ILLUSTRATOR Pulse 103 08/04/2025 9:24 AM MEDICAL AND SCIENTIFIC ILLUSTRATOR Temperature 36.3 C (97.4 F) 07/01/2025 11:19 AM CDT Respiratory Rate 16 08/04/2025 9:24 AM MEDICAL AND SCIENTIFIC ILLUSTRATOR Oxygen Saturation 100% 07/01/2025 11:42 AM CDT Inhaled Oxygen Concentration - - Weight 78.9 kg (174 lb) 08/04/2025 9:24 AM MEDICAL AND SCIENTIFIC ILLUSTRATOR Height 162.6 cm (5' 4) 07/01/2025 11:19 AM CDT Body Mass Index 29.87 07/01/2025 11:19 AM CDT Plan of Treatment Upcoming Encounters Date Type Department Care Team (Late st Contact Info) Description 09/02/2025 3:00 PM MEDICAL AND SCIENTIFIC ILLUSTRATOR Appointment [facility] [address] [place] [phone] Estee Lindsey, SENIOR JAVA ARCHITECT-[employer]RISTM[employer]REE FARM MANAGER [address] [facility] [place] [address] 09/22/2025 10:15 AM MEDICAL AND SCIENTIFIC ILLUSTRATOR Appointment [place] [id number] [place] [phone] Quintin Snow MD [facility] [place] [address] 09/22/2025 11:00 AM MEDICAL AND SCIENTIFIC ILLUSTRATOR Appointment [place] [id number] [place] [phone] Quintin Snow MD [address] [place] [address] DIV [facility] [address] Health Maintenance Due Date Last Done Comments COLOGUARD (AGES 45-75) - COLON CA SCREENING 1959 CT COLONOGRAPHY - COLON CA SCREENING 1959 FIT - COLON CA SCREENING 1959 FLEX SIG - COLON CA SCREENING 1959 HEPATITIS B VACCINE (1 of 3 - Risk Dialysis 4-dose series) 1979 Respiratory Syncytial Virus (RSV) Vaccine Pt: or over 60 yrs (1 - Risk 50-74 years 1-dose series) 2009 DIABETES RETINOPATHY SCREENING 10/20/2021 DIABETES-FOOT EXAM WITH MONOFILAMENT 10/20/2021 ZOSTER VACCINE (2 of 2) 05/27/2022 04/01/2022 MEDICARE AWV 12 MONTHS 12/14/2022 12/14/2021 MAMMOGRAM 11/09/2023 11/09/2021 DEPRESSION SCREENING 09/25/2024 02/14/2022 COVID-19 VACCINE ( season) 2025 05/30/2024, 06/26/2023, 03/06/2023, Additional history [...] 140/90 Blood Pressure 87/70( 025 9:24 AM MEDICAL AND SCIENTIFIC ILLUSTRATOR) No Lilian Sky RN Medication Management General [...] last dose Medical Devices Implanted Type Area Meat Stock Clerk Device Identifier Shelf Expiration Date Model / Serial / Lot Kit Jeffry Drflw Embosafe Chrnc Dlys Implanted:Qty: 1 on 06/08/2022 at [facility] [employer] 10/25/2024 [id number] Graft Vasc 4-7mm 45cm Hep Propaten Ptfe - [id number] Implanted:Qty: 1 on 12/07/2022 by Abundio Benjamin MD at [facility] Right: Arm [employer] [id number] 06/15/2026 [id number] / [id number] / Stent Eprsth Sprfc Fem Art Ilium 5cm 8mm - [id number] Implanted:Qty: 1 on 08/04/2023 by Flakito Yu MD at [facility] Right: Arm [employer] 05/09/2026 [id number] / [id number] / Kit Durathane Drflw Embosafe Chrnc Dlys Implanted:Qty: 1 on 08/24/2023 at [facility] Left: Chest [employer] 01/22/2026 [id number] / [id number] Description:[facility] by Dr. Mike Kit Durathane Drflw Embosafe Chrnc Dlys Implanted:Qty: 1 on 09/13/2023 at [facility] Left: Chest [employer] 09/24/2025 [id number] / [id number] Description:implaned by Dr. Mike Perioneal Dialysis Catheter Implanted:Qty: 1 on 09/27/2023 by Fred Jo MD at [facility] Left: Abdomen 06/22/2027 [id number] / / [id number] Description:Peritoneal Dialy sis Catheter, 57cm, Curl Cath, 2 Cuff Procedures Procedure Name Priority Date/Time Associated Diagnosis Comments HOLD HLA SPECIMEN Routine 08/04/2025 12: 22 PM MEDICAL AND SCIENTIFIC ILLUSTRATOR XR PELVIS 1 OR 2VW Routine 07/01/2025 12 :29 PM CDT Status post fall Pain in pelvis XR SACRUM AND COCCYX Routine 07/01/2025 12:29 PM CDT Status post fall Pain in sacrum Coccyx pain PAIN MANAGEMENT PROCEDURE TIME Routine 07/01/2025 11:53 AM CDT Arthritis of knee HOLD HLA SPECIMEN Routine 06/03/2025 3:0 1 PM CDT HEPATITIS C ANTIBODY Routine 12/24/2024 8:24 AM [...] disease on chronic dialysis, unspecified whether terminal manager insulin use (HCC) Hypertension, unspecified type Takotsubo cardiomyopathy 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) Recurrent UTI IPMN (intraductal papillary mucinous neoplasm) Tachycardia DEXA BONE DENSITY AXIAL SKELETON Routine 02/02/2022 9:11 AM CDT Hypocalcemia Age-related osteoporosis with current pathological fracture, initial encounter Screening for osteoporosis Localized osteoporosis ([place]) COLONOSCOPY Routine 11/17/2021 MAMMOGRAM Routine 11/09/2021 from Last 3 Months or Most Recently Relevant to Health Maintenance Results * HOLD HLA SPECIMEN (08/04/2025 12:22 PM MEDICAL AND SCIENTIFIC ILLUSTRATOR) Only the most recent of2 resultswithin the time period is included. Hold HLA Specimen 08/14/2025 1:32 PM MEDICAL AND SCIENTIFIC ILLUSTRATOR [facility] ([facility]) Comment:The Hold HLA specime n has been received into the lab and will be held for 5 years at 4 degrees. Blood BLOOD SPECIMEN / Unknown 08/04/2025 12:22 PM MEDICAL AND SCIENTIFIC ILLUSTRATOR 08/14/2025 12:22 PM MEDICAL AND SCIENTIFIC ILLUSTRATOR us Quintin Snow MD LAB - BLOOD BANK ORDERABLES F inal Result [facility] [address] * XR Sacrum And Coccyx (07/01/2025 12:29 PM CDT) Anatomical Region Laterality Modality Spine Computed Radiogr aphy 07/01/2025 12:3 7 PM CDT Narrative 07/01/2025 12:40 PM CDT PROCEDURE: XR SACRUM AND COCCYX, DATE/TIME OF EXAM: 07/01/2025 12:29 PM, LOCATION [facility] INDICATION: Z91.81: Status post fall. [...] COCCYX, DATE/TIME OF EXAM: 07/01/2025 12:29PM, LOCATION [facility] INDICATION: Z91.81: Status post fall. [...] DATE/TIME OF EXAM: 07/01/2025 12:29 PM, LOCATION [facility] INDICATION: Z91.81: Status post fall. [...] DATE/TIME OF EXAM: 07/01/2025 12:29 PM, LOCATION [facility] INDICATION: Z91.81: Status post fall. [...] on how to reach the clinic or blue print control clerk physician at anytime for questions or complaints. Jr Obregon MD DIAGNOSTIC IMAGING ORDERABLES Fi nal Result * (ABNORMAL) HEMOGLOBIN A1C (12/24/2024 8:24 AM CDT) Hemoglobin A1c 6.9(H) <=5.6 % 12/24/2024 1:04 PM [facility] Estimated Average Glucose 151 mg/dL 12/24/2024 1:04 PM [facility] Comment: HbA1c Interpretation: Normal : < 5.7% Pre-diabetes: 5.7-6.4% Diabetes: Equal to or greater than 6.5% Test results diagnostic of diabetes should be repeated for confirmation. Treatment target values recommended by ADA and other clinical organizations should be used to evaluate metabolic control in patients. Reference: [place] Diabetes Association, Standards of Care in Diabetes [...] ORDERAB LES Final Result Performing Organization Address City/[facility]/ZIP Co de Phone Number [address] [address], [place] [phone] * HEPATITIS C ANTIBODY (12/24/2024 8:24 AM CDT) Pathologist [facility] Hepatitis C Antibody Non-react [facility] 12/24/2024 9:31 AM CDT [facility] Comment:Hepatitis C Antibody screen indicates no [...] ORDERAB LES Final Result Performing Organization Address City/[facility]/ZIP Co de Phone Number [address] [address], [place] [phone] * BONE DENSITY AXIAL SKELETON(1OR MORE SITES)[id number] (02/02/2022 9:11 AM CDT) Anatomical Region Laterality [...] ordering physician and is also available on [employer], the Radiology Department's computerized picture archive system. [...] theordering physician and is also available on [employer], the Radiology Department's computerized picture archive system. [...] D.O. on02/02/2022 4:15 PM . Francesca Calderón SENIOR JAVA ARCHITECT-CHRISTMAS TREE FARM MANAGER DEXA ORDERABLES Final R esult * COLONOSCOPY (11/17/2021) Historical Provider MD SCANNING ONLY Final Res ult * MAMMOGRAM (11/09/2021) Anatomical Region Laterality Modality Other Historical Provider MD SCANNING ONLY Final Res ult from Last 3 Months or Most Recently Relevant to Health Maintenance Insurance MEDICARE [facility] MEDICARE [facility] Advance Directives * Full Code (Latest Code [...] 1:26 PM 01/30/2022 12:05 PM Care Teams Pipe Bowl Paint Trimmer Relationship Specialty Start Date End Date Compa Sam MD [address] [place] [address] PCP - General 12/28/22 Compa Sam MD [address] [place] [address] Family Medicine 09/29/22 Quintin Hope MD 1034 [facility] 12[address] [place] [address] Nephrology 04/10/24
--- OUTSIDE RECORDS SUMMARY | 2025-08-19 16:35 | XMS_ITS | Encounter Summary ---
Author Organization [facility] Health Address [address] [place] [address] Care Team Providers Care Liquor Commissioner Name Role Phone Meryl Lacy Primary Care Provider [phone] Debbie Middleton Primary Care Provider [phone] Compa Sam MD Primary Care Provider + [phone] Debbie Middleton Primary Care Provider [phone] Compa Sam MD Unavailable [phone] Debbie Middleton Primary Care Provider [phone] Compa Sam MD Primary Care Provider + [phone] Quintin Hope MD Unavailable [phone] Encounter Details Date Type Department Care Team (Late st Contact Info) Description 01/21/2021 [facility] Outpatient Visit [facility] [address] [place] [address] Estee Lindsey, CLOTH MEASURER-DIGITAL CONTROLS TECHNICAL OFFICER [address] [facility] [place] [address] Social History Tobacco Use Types Packs/Day Years Used Date Smoking Tobacco: Never Comments Unknown Sex and Gender Information Value Date Recorded Sex Assigned at Not on file Legal Sex Female 8:35 AM STAGE SETTING PAINTER APPRENTICE Gender Identity Not on file Sexual Orientation [...] st Contact Info) Description 09/02/2025 3:00 PM STAGE SETTING PAINTER APPRENTICE Appointment [facility] [address] [place] [address] Estee Lindsey, CLOTH MEASURER-DIGITAL CONTROLS TECHNICAL OFFICER [address] [place] [address].[place] [address] 09/22/2025 10:15 AM STAGE SETTING PAINTER APPRENTICE Appointment [address] [phone] Quintin Snow MD [address] [place] [address] [place] [address] 09/22/2025 11:00 AM STAGE SETTING PAINTER APPRENTICE Appointment [address] [phone] Quintin Snow MD [address] [place] [address] [place] [address] documented as of this encounter Visit Diagnoses Not on filedocumented in this encounter Additional Health Concerns Infection Onset Date Last Indicated Resolved Time COVID-19 Under Investigation 07/15/2022 07/15/2022 07/26/2022 4:33 AM CDT documented as of this encounter Care Teams Liquor Commissioner Relationship Specialty Start Date End Date Meryl aLcy DO [address] [place] [address] PCP - General 03/25/21 10/05/21 Debbie Middleton APRN-LETICIA [address] [place] [address] PCP - General 10/06/21 08/29/22 Compa Sam MD [address] [phone] PCP - General Family Medicine 08/30/22 09/25/22 Debbie Middleton APRN-DIGITAL CONTROLS TECHNICAL OFFICER [address] [place] [address] PCP - General 09/26/22 09/28/22 Debbie Middleton APRN-DIGITAL CONTROLS TECHNICAL OFFICER [address] [place] [address] PCP - General 10/11/22 12/27/22 Compa Sam MD [address] [place] [address] PCP - General 12/28/22 Compa Sam MD [address] [place] [address] Family Medicine 09/29/22 Quintin [place] MD 1034 [facility], [address] [place] [address] Nephrology 04/10/24 documented as of this encounter
--- OUTSIDE RECORDS SUMMARY | 2025-08-19 16:35 | XMS_ITS | Encounter Summary ---
Author Organization [facility] Health Address [address] [place] [address] Care Team Providers Care Stock Lifter Name Role Phone Compa Sam MD Unavailable [phone] Compa Sam MD Primary Care Provider [phone] Quintin Hope MD Unavailable [phone] Encounter Details Date Type Department Care Team (Late st Contact Info) Description 03/10/2025 Lab Requisition [facility] MAIN LAB [address] [place] [phone] Quintin Snow MD [facility]1 [facility] [place] [address] Social History Tobacco Use Types Packs/Day Years [...] Date Recorded PHQ2 TOTAL SCORE 0 12/14/2021 [facility] [place] of Occupat ional Health - Occupational Stress [...] any time in the past 12 m [facility], were you homeless or living in a assisted (including now)? No 02/19/2025 Comments No Sex and Gender Information Value Date Recorded Sex Assigned at Not on file Legal Sex Female 8:35 AM TAPING MACHINE OPERATOR Gender Identity Not on file Sexual [...] st Contact Info) Description 09/02/2025 3:00 PM TAPING MACHINE OPERATOR Appointment [facility] Pain Care [address] [place] [phone] Estee Lindsey, SENIOR CHEMIST-POLITICAL ANTHROPOLOGIST [address] [place] [address].[place] [address] 09/22/2025 10:15 AM TAPING MACHINE OPERATOR Appointment [address] [phone] Quintin Snow MD [address] [place] [address] [place] [address] 09/22/2025 11:00 AM TAPING MACHINE OPERATOR Appointment [address] [phone] Quintin Snow MD [address] [place] [address] [place] [address] documented as of this encounter Goals Goal Patient Goal Type Associated Problems Recent Progress Patient-Stated? Author Blood Pressure < 140/90 Blood Pressure 87/70( 025 9:24 AM TAPING MACHINE OPERATOR) No Lilian Sky RN Medication Management General [...] Hold HLA Specimen 03/10/2025 4:31 PM CDT [facility] ([facility]) Comment:The Hold HLA specime n has been received into the lab and will be held for 5 years at 4 degrees. Blood BLOOD SPECIMEN / Unknown 03/06/2025 3:21 PM CDT 03/10/2025 3:21 PM CDT us Quintin Snow MD LAB - BLOOD BANK ORDERABLES F inal Result [facility] ([facility]) [address] documented in this encounter Visit Diagnoses Not on filedocumented in this encounter Care Teams Stock Lifter Relationship Specialty Start Date End Date Compa Sam MD [address] [facility] [address] [place] [address] PCP - General 12/28/22 Compa Sam MD [address] [facility] [address] [place] [address] Family Medicine 09/29/22 Quintin [place] MD 1034 [facility] 1280 [place] [address] Nephrology 04/10/24 documented as of this encounter
--- OUTSIDE RECORDS SUMMARY | 2025-08-19 16:35 | XMS_ITS | Encounter Summary ---
Author Organization [facility] Health Address [address] [facility] [place] [address] Care Team Providers Care Emergency Medical Technician Basic Name Role Phone Compa Sam MD Unavailable [phone] Compa Sam MD Primary Care Provider [phone] Quintin Hope MD Unavailable [phone] Reason for Visit * Reason Comments Refill Request Encounter Details Date Type Department Care Team (Late st Contact Info) Description 05/25/2023 Refill [facility] - Nephrology [address] [place] [address], [place] [phone] Reva Edmond MD [address] [place] [address] 3[facility]PH[facility] [place], [place] [phone] Refill Request Social History Tobacco Use Types [...] on file Legal Sex Female 8:35 AM SERVICE OBSERVER CHIEF Gender Identity Not on file Sexual Orientation [...] st Contact Info) Description 09/02/2025 3:00 PM SERVICE OBSERVER CHIEF Appointment [facility] Pain Care [address] [place] [phone] Estee Lindsey, VINEYARDIST-STAFF APPRAISER [address] [place], [place] [address] [address] 09/22/2025 10:15 AM SERVICE OBSERVER CHIEF Appointment [address] [phone] Quintin Snow MD [address] [facility] [place] [address] 09/22/2025 11:00 AM SERVICE OBSERVER CHIEF Appointment [facility] [address] [place] [address] Quintin Snow MD [address] [facility] [place] [address] documented as of this encounter Goals Goal [...] on filedocumented in this encounter Care Teams Emergency Medical Technician Basic Relationship Specialty Start Date End Date Compa Sam MD 6812 [facility] [address] [place] [address] PCP - General 12/28/22 Compa Sam MD [address] [place] [address] Family Medicine 09/29/22 Quintin [place] MD 1034 [facility] 1280 [place] [address] Nephrology 04/10/24 documented as of this encounter
--- OUTSIDE RECORDS SUMMARY | 2025-08-19 16:35 | XMS_ITS | Encounter Summary ---
Author Organization [facility] Health Address [address] [facility] [place] [address] Care Team Providers Care International Affairs Vice President Name Role Phone Compa Sam MD Unavailable [phone] Compa Sam MD Primary Care Provider [phone] Quintin Hope MD Unavailable [phone] Encounter Details Date Type Department Care Team (Late st Contact Info) Description 12/04/2024 Lab Requisition [facility] MA[facility] LAB [address] [place] [phone] Quintin Snow MD [facility]1 [facility] OF [place] [address] Social History Tobacco Use Types Packs/Day Years [...] on file Legal Sex Female 8:35 AM TENNIS BALL COVER CEMENTER Gender Identity Not on file Sexual Orientation [...] st Contact Info) Description 09/02/2025 3:00 PM TENNIS BALL COVER CEMENTER Appointment [facility] Health Pain Care [address] [place] [phone] Estee Lindsey, AS400 ANALYST-INDUSTRIAL TRAINING SPECIALIST [address] [facility] [address] 09/22/2025 10:15 AM TENNIS BALL COVER CEMENTER Appointment [address] [address] Quintin Snow MD [address] [place] [address] OF [place] [address] 09/22/2025 11:00 AM TENNIS BALL COVER CEMENTER Appointment [facility] [address] [place] [phone] Quintin Snow MD 12[address] [facility] [place] [address] documented as of this encounter Goals Goal Patient Goal Type Associated Problems Recent Progress Patient-Stated? Author Blood Pressure < 140/90 Blood Pressure 87/70( 025 9:24 AM TENNIS BALL COVER CEMENTER) No Lilian Sky RN Medication Management General [...] HLA SPECIMEN Routine 11/29/2024 10: 43 AM TENNIS BALL COVER CEMENTER documented in this encounter Results * HOLD HLA SPECIMEN (11/29/2024 10:43 AM TENNIS BALL COVER CEMENTER) Hold HLA Specimen 12/04/2024 12:02 PM CDT [facility] ([facility]) Comment:The Hold HLA specime n has been received into the lab and will be held for 5 years at 4 degrees. Blood BLOOD SPECIMEN / Unknown 11/29/2024 10:43 AM TENNIS BALL COVER CEMENTER 12/04/2024 10:43 AM CDT Quintin Snow MD LAB - BLOOD BANK ORDERABLES F inal Result [facility] ([facility]) [address] [place] [address], [facility] documented in this encounter Visit Diagnoses Not on filedocumented in this encounter Care Teams International Affairs Vice President Relationship Specialty Start Date End Date Compa Sam MD [address] [place] [address] PCP - General 12/28/22 Compa Sam MD [address] [place] [address] Family Medicine 09/29/22 Quintin Hope MD 1034 [facility] 12[address] [place] [address] Nephrology 04/10/24 documented as of this encounter
--- OUTSIDE RECORDS SUMMARY | 2025-08-19 16:35 | XMS_ITS | Clinical Summary ---
Author Organization [facility] [address] Address [address] [place] [address] Care Team Providers Care Retention Representative Name Role Phone Compa Sam MD Primary Care Provider [phone] Allergies Active Allergy Reactions Criticality Noted Date [...] tablet (20 mg total) by mouth daily Active albuterol HFA (PROVENTIL HFA,VENTOLIN HFA,PROAIR HFA) [...] day as needed for cough 30 capsule Active bumetanide (BUMEX) 2 mg tablet Take [...] mouth every 6 (six) hours as needed Active vitamin B complex-vitamin C-folic acid (NEPHRO-ALEXIS) 0.8 mg tablet Take 1 tablet by mouth daily 023 Active dilTIAZem CD/XR/XT (dilTIAZem CD) 120 mg 24 hr capsule Take 1 capsule (120 mg total) by mouth daily 30 capsule 11 025 2025 Active insulin lispro (HumaLOG) 100 unit/mL pen for injection Take 6 units before meals, for sugars over 200, take 8 units, for sugars over 300, take 10 units 15 mL 1 Active Additional Information Patient taking differently: As [...] mouth once daily 90 tablet 025 Active blood-glucose sensor (FreeStyle Rubia 3 Plus Sensor) deviceIndications :Type 2 diabetes mellitus with hyperglycemia, without long-term current use of insulin (HCC) CHANGE EVERY 15 DAYS. 6 each 025 Active blood-glucose sensor (FreeStyle Rubia 3 Plus Sensor) deviceIndications :Type 2 diabetes mellitus with hyperglycemia, without long-term current use of insulin (HCC) Change sensor every 15 days Dx: E11.65 6 each 3 024 2024 Discontinued Active Problems Problem [...] Description 06/10/2025 12:00 PM CDT [facility] [address] [address] Ally Barber MD Type 2 diabetes mellitus with hyperglycemia, without long-term current use of insulin (HCC) (Primary Dx) 06/10/2025 Telephone [facility] [address] [address] Ally Barber MD Clarification on Insulin 06/09/2025 Telephone [facility] Diabetes and Endocrinology [address] [place] [phone] Ally Barber MD Rubia download 06/09/2025 Telephone [facility] [address] [address] Letitia Astorga PA Med Management [...] 36.9 C (98.4 F) 08/08/2022 6:56 PM ETIOLOGY TEACHER Respiratory Rate 14 06/10/2025 12:05 PM CDT Oxygen Saturation 98% 08/08/2022 6:56 PM ETIOLOGY TEACHER Inhaled Oxygen Concentration - - Weight 77.7 [...] DIABETES EYE EXAM Routine 10/14/2024 8:28 AM ETIOLOGY TEACHER from Last 3 Months or Most Recently Relevant to Health Maintenance Results * (ABNORMAL) POCT hemoglobin A1c (06/10/2025 12:05 PM CDT) Hemoglobin A1C, POC 7.7(A) 4.0 - 5.6 % Comment:None Capillary blood 06/10/2025 1 2:05 PM CDT us Ally Barber MD POINT OF CARE TEST ORDERABLES Fi nal Result * (ABNORMAL) POCT glucose (06/10/2025 12:05 PM CDT) Glucose Blood, POC 205 Normal Fasting 70 - 100, Random <200 mg/dL Comment:None Blood 06/10/2025 12:0 5 PM CDT us Ally Barber MD POINT OF CARE TEST ORDERABLES Fi nal Result * (ABNORMAL) HM CREATININE (12/24/2024 4:08 PM CDT) SCRIBED Creatinine 8.5(A) 0.56 - 0.96 mg/dl EXTERNAL LAB SCRIBED eGFR 5(A) >=90 EXTERNAL LAB SCRIBED eGFR 5(A) >=90 EXTERNAL LAB us Historical Provider HEALTH MAINTENANCE Edited Result - Final EXTERNAL LAB * DIABETES EYE EXAM (10/14/2024 8:28 AM ETIOLOGY TEACHER) us Historical Provider HEALTH MAINTENANCE Final Result from Last 3 Months or Most Recently Relevant to Health Maintenance Insurance MEDICARE MEDICARE [facility] Care Teams Retention Representative Relationship Specialty Start Date End Date Compa Sam MD [address] [place] [address] PCP - General Family Medicine 12/04/23
--- OUTSIDE RECORDS SUMMARY | 2025-08-19 16:35 | XMS_ITS | Encounter Summary ---
Author Organization [facility] Address [address] [facility] [place] [address] Care Team Providers Care Mineral Ore Processing Labourer Name Role Phone Debbie Middleton Primary Care Provider [phone] Compa Sam MD Primary Care Provider [phone] Debbie Middleton Primary Care Provider [phone] Compa Sam MD Unavailable [phone] Debbie Middleton Primary Care Provider [phone] Compa Sam MD Primary Care Provider [phone] Quintin Hope MD Unavailable [phone] Encounter Details Date Type Department Care Team (Late st Contact Info) Description 02/02/2022 Lab Requisition [facility] Pathology Lab [address] [place] [address] Reva Edmond MD 1225 [facility] 3[facility] [place] [address] Other fdc (current) drug therapy Social History Tobacco Use [...] on file Legal Sex Female 8:35 AM LIQUIFIED NATURAL GAS TECHNICIAN Gender Identity Not on file Sexual [...] st Contact Info) Description 09/02/2025 3:00 PM LIQUIFIED NATURAL GAS TECHNICIAN Appointment [facility] Pain Care [address] [place] [phone] Estee Lindsey, RECORDS CUSTODIAN-ART OBJECTS SALESPERSON [address] [place], [place] [address] [address] 09/22/2025 10:15 AM LIQUIFIED NATURAL GAS TECHNICIAN Appointment [address] [phone] Quintin Snow MD [address] [place] [address] [place] [address] 09/22/2025 11:00 AM LIQUIFIED NATURAL GAS TECHNICIAN Appointment [facility] [address] [place] [phone] Quintin Snow MD 1201 [facility] [place] [address] documented as of this encounter Goals Goal [...] ([facility]) Routine 01/27/2022 7:57 AM CDT Other fdc (current) drug therapy documented in this encounter Results * ELECTRON MICROSCOPY ([facility]) (01/27/2022 7:57 AM CDT) Case Report Gynecologic Cytology Report Case: [id number] Authorizing Provider: Reva Edmond MD Collected: 01/27/2022 07:57 AM Ordering Location: [facility] Care Pathology Lab Received: 02/02/2022 10:09 AM [...] 7:57 AM CDT 02/02/2022 10:09 AM CDT Reva Edmond MD LAB - PATHOLOGY/CYTOLOGY ORD ERABLES Final Result [facility] PATHOLOGY LAB [address] [place], [place] [address] [place] [address] documented in this encounter Visit Diagnoses Diagnosis Other termination clerk (current) drug therapy documented in this encounter Additional Health Concerns Infection Onset Date Last Indicated Resolved Time COVID-19 Under Investigation 07/15/2022 07/15/2022 07/26/2022 4:33 AM CDT documented as of this encounter Care Teams Mineral Ore Processing Labourer Relationship Specialty Start Date End Date Debbie Middleton APRN-CNP PCP - General 10/06/21 08/29/22 Compa Sam MD [address] [phone] PCP - General Family Medicine 08/30/22 09/25/22 Debbie Middleton APRN-CNP PCP - General 09/26/22 09/28/22 Debbie Middleton APRN-CNP PCP - General 10/11/22 12/27/22 Compa Sam MD [address] [place] [address] PCP - General 12/28/22 Compa Sam MD [address] [place] [address] Family Medicine 09/29/22 [place] [address] [place] [address], [address] [place] [address] Nephrology 04/10/24 documented as of this encounter
--- OUTSIDE RECORDS SUMMARY | 2025-08-19 16:35 | XMS_ITS | Encounter Summary ---
Author Organization [facility] Address [address] [facility] [place] [address] Care Team Providers Care Vibrating Screen Operator Name Role Phone Compa Sam MD Unavailable [phone] Compa Sam MD Primary Care Provider [phone] Quintin Hope MD Unavailable [phone] Encounter Details Date Type Department Care Team (Late st Contact Info) Description 02/06/2024 Lab Requisition [facility] MAIN LAB [address] [place] [phone] Quintin Snow MD [facility]1 [facility] OF ABD [place] [address] Social History Tobacco Use Types Packs/Day Years [...] on file Legal Sex Female 8:35 AM SEAMAN OFFICER Gender Identity Not on file Sexual [...] Assessment Author No 11/15/2023 2:15 PM Sonia oHrton RN * Does person have difficulty dressing/bathing? [...] st Contact Info) Description 09/02/2025 3:00 PM SEAMAN OFFICER Appointment [facility] [address] [place] [phone] Estee Lindsey, HOGSHEAD STOCK CLERK-HAND LAUNDERER [address] [facility] [place] [address] 09/22/2025 10:15 AM SEAMAN OFFICER Appointment [address] [address] Quintin Snow MD [address] [place] [address] OF ABD [place] [address] 09/22/2025 11:00 AM SEAMAN OFFICER Appointment [facility] [address] [place] [phone] Quintin Snow MD [address] [facility] OF ABD [place] [address] documented as of this encounter Goals Goal Patient Goal Type Associated Problems Recent Progress Patient-Stated? Author Blood Pressure < 140/90 Blood Pressure 87/70( 025 9:24 AM SEAMAN OFFICER) No Lilian Sky RN Medication Management General [...] Hold HLA Specimen 02/06/2024 3:01 PM CDT [facility] ([facility]) Comment:The Hold HLA specime n has been received into the lab and will be held for 5 years at 4 degrees. Blood BLOOD SPECIMEN / Unknown 01/25/2024 1:43 PM CDT 02/06/2024 1:43 PM CDT Quintin Snow MD LAB - BLOOD BANK ORDERABLES F inal Result [facility] ([facility]) [address] [place] [address], [facility] documented in this encounter Visit Diagnoses Not on filedocumented in this encounter Care Teams Vibrating Screen Operator Relationship Specialty Start Date End Date Compa Sam MD [address] [place] [address] PCP - General 12/28/22 Compa Sam MD [address] [place] [address] Family Medicine 09/29/22 Quintin Hope MD 1034 [facility] [address] [place] [address] Nephrology 04/10/24 documented as of this encounter
--- OUTSIDE RECORDS SUMMARY | 2025-08-19 16:35 | XMS_ITS | Encounter Summary ---
Author Organization [facility] Address [address] [facility] [place] [address] Care Team Providers Care Tobacco Cutter Name Role Phone Compa Sam MD Unavailable [phone] Compa Sam MD Primary Care Provider [phone] Quintin Hope MD Unavailable [phone] Encounter Details Date Type Department Care Team (Late st Contact Info) Description 11/05/2024 Lab Requisition [facility] MAIN LAB [address] [place] [phone] Quintin Snow MD [facility]1 [facility] OF [place]BD [place] [address] Social History Tobacco Use Types Packs/Day Years [...] on file Legal Sex Female 8:35 AM ASSISTANT CORPORATE SECRETARY Gender Identity Not on file Sexual Orientation [...] st Contact Info) Description 09/02/2025 3:00 PM ASSISTANT CORPORATE SECRETARY Appointment [facility] Pain Care [address] [place] [phone] Estee Lindsey, NON LINEAR EDITOR-COOKING APPLIANCE REPAIR TECHNICIAN [address] [facility] [place] [address] 09/22/2025 10:15 AM ASSISTANT CORPORATE SECRETARY Appointment [address] [address] Quintin Snow MD [address] [place] [address] OF ABD [place] [address] 09/22/2025 11:00 AM ASSISTANT CORPORATE SECRETARY [facility]ointment [facility] [address] [place] [phone] Quintin Snow MD [address] [facility] OF ABD [place] [address] documented as of this encounter Goals Goal Patient Goal Type Associated Problems Recent Progress Patient-Stated? Author Blood Pressure < 140/90 Blood Pressure 87/70( 025 9:24 AM ASSISTANT CORPORATE SECRETARY) No Lilian Sky RN Medication Management General [...] HLA SPECIMEN Routine 10/31/2024 2:5 4 PM ASSISTANT CORPORATE SECRETARY documented in this encounter Results * HOLD HLA SPECIMEN (10/31/2024 2:54 PM ASSISTANT CORPORATE SECRETARY) Hold HLA Specimen 11/05/2024 4:01 PM ASSISTANT CORPORATE SECRETARY [facility] ([facility]) Comment:The Hold HLA specime n has been received into the lab and will be held for 5 years at 4 degrees. Blood BLOOD SPECIMEN / Unknown 10/31/2024 2:54 PM ASSISTANT CORPORATE SECRETARY 11/05/2024 2:54 PM ASSISTANT CORPORATE SECRETARY Quintin Snow MD LAB - BLOOD BANK ORDERABLES F inal Result [facility] ([facility]) [address] [place] [address], [facility] documented in this encounter Visit Diagnoses Not on filedocumented in this encounter Care Teams Tobacco Cutter Relationship Specialty Start Date End Date Compa Sam MD [address] [place] [address] PCP - General 12/28/22 Compa Sam MD [address] [place] [address] Family Medicine 09/29/22 Quintin Hope MD [address] [place] [place] [facility] [address] [place] [address] Nephrology 04/10/24 documented as of this encounter
--- OUTSIDE RECORDS SUMMARY | 2025-08-19 16:35 | XMS_ITS | Encounter Summary ---
Author Organization [facility] Health Address [address] [facility] [place] [address] Care Team Providers Care Vp Transportation Name Role Phone Compa Sam MD Unavailable [phone] Compa Sam MD Primary Care Provider [phone] Quintin Hope MD Unavailable [phone] Encounter Details Date Type Department Care Team (Late st Contact Info) Description 10/09/2023 Lab Requisition [facility] MAIN LAB [address] [place] [phone] Quintin Snow MD [facility]1 [facility] OF ABD [place] [address] Social History Tobacco Use Types Packs/Day Years [...] on file Legal Sex Female 8:35 AM B2B APPOINTMENT SETTER Gender Identity Not on file Sexual Orientation [...] st Contact Info) Description 09/02/2025 3:00 PM B2B APPOINTMENT SETTER Appointment [facility] Pain Care [address] [place] [address] Esete iLndsey, INSPECTOR SET UP AND LAY OUT-ELECTRICIAN OUTSIDE [address] [facility] [place] [address] 09/22/2025 10:15 AM B2B APPOINTMENT SETTER Appointment [address] [address] Quintin Snow MD [address] [place] [place] [address] OF [place]BD [place] [address] 09/22/2025 11:00 AM B2B APPOINTMENT SETTER Appointment [place] [address] [place] [phone] Quintin Snow MD [address] [facility] OF [place]BD [place] [address] documented as of this encounter Goals Goal [...] HLA SPECIMEN Routine 09/29/2023 12: 00 PM B2B APPOINTMENT SETTER documented in this encounter Results * HOLD HLA SPECIMEN (09/29/2023 12:00 PM B2B APPOINTMENT SETTER) Hold HLA Specimen 10/09/2023 4:01 PM B2B APPOINTMENT SETTER [facility] ([facility]) Comment:The Hold HLA specime n has been received into the lab and will be held for 5 years at 4 degrees. Blood BLOOD SPECIMEN / Unknown 09/29/2023 12:00 PM B2B APPOINTMENT SETTER 10/09/2023 2:53 PM B2B APPOINTMENT SETTER Quintin Snow MD LAB - BLOOD BANK ORDERABLES F inal Result [facility] ([facility]) [address] [place] [address], [facility] documented in this encounter Visit Diagnoses Not on filedocumented in this encounter Care Teams Vp Transportation Relationship Specialty Start Date End Date Compa Sam MD [address] [place] [address] PCP - General 12/28/22 Compa Sam MD [address] [place] [address] Family Medicine 09/29/22 Quintin Hope MD 1034 [facility] [address] [place] [address] Nephrology 04/10/24 documented as of this encounter
--- OUTSIDE RECORDS SUMMARY | 2025-08-19 16:35 | XMS_ITS | Encounter Summary ---
Author Organization [facility] Health Address [address] [facility] [place] [address] Care Team Providers Care Mud Jack Nozzle Worker Name Role Phone Compa Sam MD Unavailable [phone] Compa Sam MD Primary Care Provider [phone] Quintin Hope MD Unavailable [phone] Encounter Details Date Type Department Care Team (Late st Contact Info) Description 09/13/2024 Lab Requisition [facility] MAIN LAB [address] [place] [phone] Quintin Snow MD [facility] [place] [address] Social History Tobacco Use Types Packs/Day Years [...] on file Legal Sex Female 8:35 AM MECHANICAL MAINTENANCE Gender Identity Not on file Sexual Orientation [...] st Contact Info) Description 09/02/2025 3:00 PM MECHANICAL MAINTENANCE Appointment [facility] Pain Care [address] [place] [phone] Estee Lindsey, MARKETING STRATEGIST-ADVERTISING SUPERVISOR [address] [facility] [place] [address] 09/22/2025 10:15 AM MECHANICAL MAINTENANCE Appointment [address] [address] Quintin Snow MD [address] [place] [address] [place] [address] 09/22/2025 11:00 AM MECHANICAL MAINTENANCE Appointment [facility] [address] [place] [phone] Quintin Snow MD [address] [facility] [place] [address] documented as of this encounter Goals Goal Patient Goal Type Associated Problems Recent Progress Patient-Stated? Author Blood Pressure < 140/90 Blood Pressure 87/70( 025 9:24 AM MECHANICAL MAINTENANCE) No Lilian Sky RN Medication Management General [...] HLA SPECIMEN Routine 08/27/2024 1:0 4 PM MECHANICAL MAINTENANCE documented in this encounter Results * HOLD HLA SPECIMEN (08/27/2024 1:04 PM MECHANICAL MAINTENANCE) Hold HLA Specimen 09/13/2024 2:32 PM MECHANICAL MAINTENANCE [facility] ([facility]) Comment:The Hold HLA specime n has been received into the lab and will be held for 5 years at 4 degrees. Blood BLOOD SPECIMEN / Unknown 08/27/2024 1:04 PM MECHANICAL MAINTENANCE 09/13/2024 1:04 PM MECHANICAL MAINTENANCE Quintin Snow MD LAB - BLOOD BANK ORDERABLES F inal Result [facility] ([facility]) [address] [place] [address], [facility] documented in this encounter Visit Diagnoses Not on filedocumented in this encounter Care Teams Mud Jack Nozzle Worker Relationship Specialty Start Date End Date Compa Sam MD [address] [place] [address] PCP - General 12/28/22 Compa Sam MD [address] [place] [address] Family Medicine 09/29/22 Quintin Hope MD 1034 [facility] [address] [place] [address] Nephrology 04/10/24 documented as of this encounter
--- OUTSIDE RECORDS SUMMARY | 2025-08-19 16:35 | XMS_ITS | Encounter Summary ---
Author Organization [facility] Health Address [address] [facility] [place] [address] Care Team Providers Care Pearl Cutter Name Role Phone Compa Sam MD Unavailable [phone] Compa Sam MD Primary Care Provider [phone] Quintin Hope MD Unavailable [phone] Reason for Visit * Reason Onset Date Comments MEDICATION REFILL 12/22/2023 Encounter Details Date Type Department Care Team (Late st Contact Info) Description 12/22/2023 Refill [facility] - Nephrology [address] [place] [address], [facility] [place] [address] Reva Edmond MD [address] [place] [address] [address] [place] [address] MEDICATION REFILL Social History Tobacco Use Types [...] on file Legal Sex Female 8:35 AM FINANCIAL AIDS OFFICER Gender Identity Not on file Sexual [...] st Contact Info) Description 09/02/2025 3:00 PM FINANCIAL AIDS OFFICER Appointment [facility] Pain Care [address] [place] [phone] Estee Lindsey, FURNITURE SHAMPOOER-CONDUCTOR FREIGHT [address] [facility] [place] [address] 09/22/2025 10:15 AM FINANCIAL AIDS OFFICER Appointment [address] [phone] Quintin Snow MD [address] [facility] DIV OF [facility] [place] [address] 09/22/2025 11:00 AM FINANCIAL AIDS OFFICER [facility] [address] [place] [phone] Quintin Snow MD [address] [facility] DIV OF [facility] [place] [address] documented as of this encounter Goals Goal [...] on filedocumented in this encounter Care Teams Pearl Cutter Relationship Specialty Start Date End Date Compa Sam MD [address] [facility] [address] [place] [address] PCP - General 12/28/22 Compa Sam MD [address] [place] [address] Family Medicine 09/29/22 Quintin Hope MD 1034 [facility] [address] [place] [address] Nephrology 04/10/24 documented as of this encounter
--- OUTSIDE RECORDS SUMMARY | 2025-08-19 16:35 | XMS_ITS | Encounter Summary ---
Author Organization [facility] Health Address [address] [facility] [place] [address] Care Team Providers Care Video Tape Transferrer Name Role Phone Compa Sam MD Unavailable [phone] Compa Sam MD Primary Care Provider [phone] Quintin Hope MD Unavailable [phone] Encounter Details Date Type Department Care Team (Late st Contact Info) Description 01/31/2025 Lab Requisition [facility] MAIN LAB [address] [place] [phone] Quintin Snow MD [facility]1 [facility] OF ABD [place] [address] Social History Tobacco Use Types Packs/Day Years [...] on file Legal Sex Female 8:35 AM PEER EDUCATOR Gender Identity Not on file Sexual Orientation [...] st Contact Info) Description 09/02/2025 3:00 PM PEER EDUCATOR Appointment [facility] Health Pain Care [address] [place] [phone] Estee Lindsey, LIBRARY CATALOGING TECHNICIAN-STITCH WHEELER 64[address] [facility] [place] [address] 09/22/2025 10:15 AM PEER EDUCATOR Appointment [address] [address] Quintin Snow MD [address] [place] [address] OF [place]BD [place] [address] 09/22/2025 11:00 AM PEER EDUCATOR Appointment [facility] [address] [place] [phone] Quintin Snow MD [address]01 [facility] OF ABD [place] [address] documented as of this encounter Goals Goal Patient Goal Type Associated Problems Recent Progress Patient-Stated? Author Blood Pressure < 140/90 Blood Pressure 87/70( 025 9:24 AM PEER EDUCATOR) No Lilian Sky RN Medication Management General [...] Hold HLA Specimen 01/31/2025 12:32 PM CDT [facility] ([facility]) Comment:The Hold HLA specime n has been received into the lab and will be held for 5 years at 4 degrees. Blood BLOOD SPECIMEN / Unknown 01/28/2025 11:06 AM CDT 01/31/2025 11:06 AM CDT Quintin Snow MD LAB - BLOOD BANK ORDERABLES F inal Result [facility] ([facility]) [address] [place] [address], [facility] documented in this encounter Visit Diagnoses Not on filedocumented in this encounter Care Teams Video Tape Transferrer Relationship Specialty Start Date End Date Compa Sam MD [address] [place] [address] PCP - General 12/28/22 Compa Sam MD [address] [place] [address] Family Medicine 09/29/22 Quintin Hope MD 1034 [facility] [address] [place] [address] Nephrology 04/10/24 documented as of this encounter
== END 2025-08-19 14:46 | disposition home or self-care (01) ==
PROVIDERS: PCP Family Medicine; Visit Provider Family Medicine
DX: Z12.31 Encounter for screening mammogram for malignant neoplasm of breast (principal)
CPT/HCPCS: 77063; 77067